=== PATIENT | female | born 1955 | race Caucasian/White ===

== ENCOUNTER 2019-03-22 22:09 | Emergency (ER) | payer MEDICARE, BC ==
[2019-03-22 22:25] VITALS: RESP 20; TEMP 98.4
[2019-03-22 23:06] LABS: Appearance,Urine Turbid (Clear); Bilirubin,Urine Negative (Negative); Blood,Urine Large (Negative); Color,Urine Dark Red; Glucose,Urine (UA) 4+ (Negative); Ketones,Urine Negative (Negative); Leukocyte Esterase,Urine Large (Negative); Nitrite,Urine Negative (Negative); PH, Urine 5.5 (5.0-8.0); Protein,Urine 2+ (Negative); RBC,Urine >182 /hpf (0-5); Urobilinogen,Urine <2.0 mg/dL (<2.0)
[2019-03-22 23:07] LABS: Specific Gravity,Urine 1.022 (1.001-1.035)
[2019-03-22] MEDS ORDERED: NITROFURANTOIN MONOHYD/M-CRYST 100 MG CAP PO STA (23:27)
[2019-03-22] MEDS ORDERED: cefTRIAXone 250 MG VIAL IM STA (23:29)
--- NOTE | 2019-03-22 23:30 | ED ---
Female Urogenital HPI - General Chief complaint: Urogenital Stated complaint: Hematuria Time Seen by Provider: 03/22/19 22:39 Source: patient, RN notes reviewed, old records reviewed Mode of arrival: wheelchair Limitations: no limitations - History of Present Illness Initial comments: This is a 63-year-old female the ER for evaluation she presents today for evaluation of blood in the urine. And difficulty with urination dysuria. Patient is without fever without abdominal pain no prior history of UTI. Patient has no other complaints MD Complaint: dysuria -: hour(s) Location: suprapubic Severity: mild Severity scale (1-10): 1 Consistency: constant Improves with: none Worsens with: urination Patient : No Associated Symptoms: denies other symptoms - Related Data Home Medications Medication Instructions Recorded Confirmed metFORMIN HCL [Glucophage] 500 mg PO AC-BID 05/30/16 03/22/19 Atorvastatin [Lipitor] 80 mg PO HS 03/22/19 03/22/19 Citalopram Hydrobromide [CeleXA] 20 mg PO HS 03/22/19 03/22/19 Losartan Potassium 100 mg PO DAILY 03/22/19 03/22/19 Pantoprazole [Protonix] 40 mg PO DAILY 03/22/19 03/22/19 Phenazopyridine HCl 95 mg PO DAILY PRN 03/22/19 03/22/19 Vitamin E 180mg 180 mg PO DAILY 03/22/19 03/22/19 Previous Rx's Medication Instructions Recorded Aspirin [Adult Low Dose Aspirin EC] 81 mg PO DAILY #30 tablet. 06/03/16 Clopidogrel [Plavix] 75 mg PO DAILY #30 tab 06/03/16 amLODIPine [Norvasc] 5 mg PO DAILY #30 tab 06/03/16 cloNIDine HCL [Catapres] 0.2 mg PO BID #60 tab 06/03/16 Nitrofurantoin Monohyd/M-Cryst 100 mg PO Q12HR #10 cap 03/22/19 [Macrobid] Nitrofurantoin Monohyd/M-Cryst 100 mg PO Q12HR #10 cap 03/22/19 [Macrobid] Allergies Allergy/AdvReac Type Severity Reaction Status Date / Time No Known Allergies Allergy Verified 03/22/19 23:15 Review of Systems ROS Statement: Those systems with pertinent positive or pertinent negative responses have been documented in the HPI. ROS Other: All systems not noted in ROS Statement are negative. Past Medical History Past Medical History: CVA/TIA, Diabetes Mellitus, Hypertension History of Any Multi-Drug Resistant Organisms: None Reported Past Surgical History: Tubal Ligation Additional Past Surgical History / Comment(s): CAROTID ENDART TO CLEAN OUT NECK ARTERY LEFT Past Anesthesia/Blood Transfusion Reactions: No Reported Reaction Past Psychological History: No Psychological Hx Reported Smoking Status: Former smoker Past Alcohol Use History: None Reported Past Drug Use History: None Reported - Past Family History Brother(s) Family Medical History: No Reported History Sister(s) Family Medical History: Diabetes Mellitus Additional Family Medical History / Comment(s): RENAL FAILURE, ABCESSES General Exam Limitations: no limitations General appearance: alert, in no apparent distress Head exam: Present: atraumatic, normocephalic, normal inspection Eye exam: Present: normal appearance, PERRL, EOMI. Absent: scleral icterus, conjunctival injection, periorbital swelling ENT exam: Present: normal exam, mucous membranes moist Neck exam: Present: normal inspection. Absent: tenderness, meningismus, lymphadenopathy Respiratory exam: Present: normal lung sounds bilaterally. Absent: respiratory distress, wheezes, rales, rhonchi, stridor Cardiovascular Exam: Present: regular rate, normal rhythm, normal heart sounds. Absent: systolic murmur, diastolic murmur, rubs, gallop, clicks GI/Abdominal exam: Present: soft, normal bowel sounds. Absent: distended, tenderness, guarding, rebound, rigid Extremities exam: Present: normal inspection, full ROM, normal capillary refill. Absent: tenderness, pedal edema, joint swelling, calf tenderness Back exam: Present: normal inspection Neurological exam: Present: alert, oriented X3, CN II-XII intact Psychiatric exam: Present: normal affect, normal mood Skin exam: Present: warm, dry, intact, normal color. Absent: rash Course Vital Signs 03/22/19 03/23/19 22:19 00:15 Temperature 98.4 F Pulse Rate 84 88 Respiratory 20 20 Rate Blood Pressure 214/85 210/90 O2 Sat by Pulse 94 L Oximetry Medical Decision Making - Medical Decision Making 83 female the ER with hematuria and dysuria, positive urinary tract infection place on antibiotics - Lab Data Lab Results 03/22/19 Range/Units 22:50 Urine Color Dark Red Urine Appearance Turbid H (Clear) Urine pH 5.5 (5.0-8.0) Ur Specific [place] 1.022 (1.001-1.035) Urine Protein 2+ H (Negative) Urine Glucose (UA) 4+ H (Negative) Urine Ketones Negative (Negative) Urine Blood Large H (Negative) Urine Nitrite Negative (Negative) Urine Bilirubin Negative (Negative) Urine Urobilinogen <2.0 (<2.0) mg/dL Ur Leukocyte Esterase Large H (Negative) Urine RBC >182 H (0-5) /hpf Urine WBC 94 H (0-5) /hpf Disposition Clinical Impression: Urinary tract infection Disposition: HOME SELF-CARE Condition: Good Instructions (If sedation given, give patient instructions): Urinary Tract Infection in Women (ED) Prescriptions: Nitrofurantoin Monohyd/M-Cryst [Macrobid] 100 mg PO Q12HR #10 cap Nitrofurantoin Monohyd/M-Cryst [Macrobid] 100 mg PO Q12HR #10 cap Is patient prescribed a controlled substance at d/c from ED?: No Referrals: Rhys Holley MD [Primary Care Provider] - 1-2 days
[2019-03-23 00:17] VITALS: BP 210/90; PULSE 88
== END 2019-03-23 00:17 | disposition home or self-care (01) ==
LOC: EC 22:09
DX: N39.0 Urinary tract infection, site not specified (principal); E11.9 Type 2 diabetes mellitus without complications; I10 Essential (primary) hypertension; Z87.891 Personal history of nicotine dependence; Z79.84 Long term (current) use of oral hypoglycemic drugs; Z79.899 Other long term (current) drug therapy; Z86.73 Personal history of transient ischemic attack (TIA), and cerebral infarction without residual deficits
CPT/HCPCS: 81001; 87086; 99284; 96372; J0696

== ENCOUNTER → 2019-05-14 | Outpatient (CLI) | payer MEDICARE, BC ==
--- NOTE | 2019-05-14 13:04 | US ---
EXAMINATION TYPE: US venous doppler duplex LE BI DATE OF EXAM: 05/14/2019 12:39 PM COMPARISON: NONE CLINICAL HISTORY: R60.0 EDEMA. Left foot and ankle edema with left foot pain and left lower leg pain x 3 years after last SIDE PERFORMED: Bilateral TECHNIQUE: The lower extremity deep venous system is examined utilizing real time linear array sonog jacinto with graded compression, doppler sonography and color-flow sonography. VESSELS IMAGED: Common Femoral Vein Deep Femoral Vein Greater Saphenous Vein * Femoral Vein: distal bilateral femoral veins not seen due to large body habitus and US machine limita tions for US penetration Popliteal Vein: left Popliteal Vein not visualized for above same reasons Patient stated is 5'3 and 231lbs or greater. Grayscale, color doppler, spectral doppler imaging performed of the deep veins of the lower extremiti es. Right Leg: Negative for DVT Left Leg: Negative for DVT as able to visualize vessels. Left ankle and anterior foot edema channels are well visualized. Tech findings were called to Carolynn, medical office worker, at Dr. Rhys Holley's Office at exam's end. JJ IMPRESSION: No sonographic evidence of deep venous thrombosis within the bilateral lower extremities as visualize d. However there is nonvisualization of the bilateral femoral veins and left popliteal vein due to pa tient body habitus.
== END | disposition home or self-care (01) ==
LOC: RADUSWWP 11:31
PROVIDERS: ATTEND Family Medicine
DX: R60.0 Localized edema (principal)
CPT/HCPCS: 93970

== ENCOUNTER 2019-07-06 11:13 | Inpatient (IN) | payer MEDICARE, BC ==
[2019-07-06] MEDS ORDERED: IBUPROFEN 600 MG TAB PO STA (11:39)
--- NOTE | 2019-07-06 11:43 | ED ---
General Adult HPI - General Chief complaint: Fever Stated complaint: FEVER, BACK AND LEG PAIN, NAUSEA Time Seen by Provider: 07/06/19 11:33 Source: patient, family, RN notes reviewed Mode of arrival: wheelchair Limitations: no limitations - History of Present Illness Initial comments: Patient is a pleasant 63-year-old female presenting to the emergency department with fevers. Symptoms started 2 or 3 days ago. Patient complains of achiness in her legs and back and head, mostly diffuse. Patient states this has resolved with Tylenol. Patient does have history of urinary tract infections with similar symptoms. Patient has had minimal cough that is nonproductive. No abdominal pain. - Related Data Home Medications Medication Instructions Recorded Confirmed metFORMIN HCL [Glucophage] 500 mg PO AC-BID 05/30/16 07/06/19 Atorvastatin [Lipitor] 80 mg PO HS 03/22/19 07/06/19 Losartan Potassium 100 mg PO DAILY 03/22/19 07/06/19 Pantoprazole [Protonix] 40 mg PO HS 03/22/19 07/06/19 Vitamin E 180mg 180 mg PO DAILY 03/22/19 07/06/19 Acetaminophen [Tylenol] 1,000 mg PO Q4-6H PRN 07/06/19 07/06/19 Citalopram Hydrobromide [CeleXA] 40 mg PO HS 07/06/19 07/06/19 Previous Rx's Medication Instructions Recorded Aspirin [Adult Low Dose Aspirin EC] 81 mg PO DAILY #30 tablet. 06/03/16 Clopidogrel [Plavix] 75 mg PO DAILY #30 tab 06/03/16 amLODIPine [Norvasc] 5 mg PO DAILY #30 tab 06/03/16 cloNIDine HCL [Catapres] 0.2 mg PO BID #60 tab 06/03/16 Allergies Allergy/AdvReac Type Severity Reaction Status Date / Time No Known Allergies Allergy Verified 07/06/19 12:03 Review of Systems ROS Statement: Those systems with pertinent positive or pertinent negative responses have been documented in the HPI. ROS Other: All systems not noted in ROS Statement are negative. Constitutional: Reports: fever, chills Eyes: Denies: eye pain ENT: Denies: ear pain Respiratory: Reports: cough. Denies: dyspnea Cardiovascular: Denies: chest pain Endocrine: Denies: fatigue Gastrointestinal: Denies: abdominal pain Genitourinary: Denies: dysuria Musculoskeletal: Reports: as per HPI, back pain (Resolved) Skin: Denies: rash Neurological: Reports: headache (Resolved), weakness (Chronic left-sided we akness from previous stroke) Past Medical History Past Medical History: CVA/TIA, Diabetes Mellitus, Hypertension Additional Past Medical History / Comment(s): cva x3 History of Any Multi-Drug Resistant Organisms: ESBL, MRSA Date of last positivie culture/infection: 06/07/19 MRSA & ESBL-E.coli MDRO Source:: Urine-RSA & ESBL Past Surgical History: Tubal Ligation Additional Past Surgical History / Comment(s): CAROTID ENDART TO CLEAN OUT NECK ARTERY LEFT Past Anesthesia/Blood Transfusion Reactions: No Reported Reaction Past Psychological History: No Psychological Hx Reported Smoking Status: Former smoker Past Alcohol Use History: None Reported Past Drug Use History: None Reported - Past Family History Brother(s) Family Medical History: No Reported History Sister(s) Family Medical History: Diabetes Mellitus Additional Family Medical History / Comment(s): RENAL FAILURE, ABCESSES General Exam Limitations: no limitations General appearance: alert, in no apparent distress Head exam: Present: normocephalic Eye exam: Present: normal appearance, PERRL ENT exam: Present: normal oropharynx Neck exam: Present: normal inspection. Absent: tenderness, meningismus Respiratory exam: Present: normal lung sounds bilaterally Cardiovascular Exam: Present: regular rate, normal rhythm GI/Abdominal exam: Present: soft. Absent: tenderness Extremities exam: Present: pedal edema Neurological exam: Present: alert, motor sensory deficit (Left arm and left leg weakness that is stated as chronic and unchanged.) Psychiatric exam: Present: normal affect, normal mood Skin exam: Present: normal color Course Vital Signs 07/06/19 07/06/19 07/06/19 11:24 12:26 12:27 Temperature 100.5 F H Pulse Rate 93 90 Respiratory 18 18 Rate Blood Pressure 139/71 172/85 O2 Sat by Pulse 91 L 88 L 95 Oximetry 07/06/19 13:35 Temperature 99.5 F Pulse Rate 80 Respiratory 18 Rate Blood Pressure 160/71 O2 Sat by Pulse 98 Oximetry - Reevaluation(s) Reevaluation #1: 07/06/19 14:11 Patient does meet sepsis criteria diagnosed at 1400. Blood culture and lactic acid and IV antibiotics ordered. EKG Findings - EKG Comments: EKG Findings:: Normal sinus rhythm 94. MT 142. QRS 84. QT 358. QTC 447. Normal axis. Normal QRS. No acute ST change. Medical Decision Making - Medical Decision Making Patient reevaluated and resting comfortably in bed. Patient and family updated on results and plan. Case was discussed in detail with Dr. marie, covering Dr. Holley, who will admit. - Lab Data Result diagrams: 07/06/19 12:09 07/06/19 12:09 Lab Results 07/06/19 07/06/19 07/06/19 Range/Units 12:09 12:09 12:09 WBC 7.6 (3.8-10.6) k/uL RBC 3.92 (3.80-5.40) m/uL Hgb 10.9 L (11.4-16.0) gm/dL Hct 32.4 L (34.0-46.0) % MCV 82.8 (80.0-100.0) fL MCH 27.9 (25.0-35.0) pg MCHC 33.7 (31.0-37.0) g/dL RDW 15.6 H (11.5-15.5) % Plt Count 172 (150-450) k/uL Neutrophils % 86 % Lymphocytes % 7 % Monocytes % 6 % Eosinophils % 0 % Basophils % 0 % Neutrophils # 6.5 (1.3-7.7) k/uL Lymphocytes # 0.5 L (1.0-4.8) k/uL Monocytes # 0.4 (0-1.0) k/uL Eosinophils # 0.0 (0-0.7) k/uL Basophils # 0.0 (0-0.2) k/uL PT (9.0-12.0) sec INR (<1.2) APTT (22.0-30.0) sec Sodium 136 L (137-145) mmol/L Potassium 4.4 (3.5-5.1) mmol/L Chloride 103 (98-107) mmol/L Carbon Dioxide 24 (22-30) mmol/L Anion Gap 9 mmol/L BUN 14 (7-17) mg/dL Creatinine 0.75 (0.52-1.04) mg/dL Est GFR (CKD-EPI)AfAm >90 (>60 ml/min/1.73 sqM) Est GFR (CKD-EPI)NonAf 84 (>60 ml/min/1.73 sqM) Glucose 245 H (74-99) mg/dL Plasma Lactic Acid [place] 1.2 (0.7-2.0) mmol/L Calcium 9.6 (8.4-10.2) mg/dL Total Bilirubin 0.9 (0.2-1.3) mg/dL AST 17 (14-36) U/L ALT 23 (9-52) U/L Alkaline Phosphatase 96 (38-126) U/L Total Protein 6.4 (6.3-8.2) g/dL Albumin 3.4 L (3.5-5.0) g/dL Urine Color Urine Appearance (Clear) Urine pH (5.0-8.0) Ur Specific [place] (1.001-1.035) Urine Protein (Negative) Urine Glucose (UA) (Negative) Urine Ketones (Negative) Urine Blood (Negative) Urine Nitrite (Negative) Urine Bilirubin (Negative) Urine Urobilinogen (<2.0) mg/dL Ur Leukocyte Esterase (Negative) Urine RBC (0-5) /hpf Urine WBC (0-5) /hpf Urine WBC Clumps (None) /hpf Urine Bacteria (None) /hpf Urine Mucus (None) /hpf 07/06/19 07/06/19 Range/Units 12:09 12:09 WBC (3.8-10.6) k/uL RBC (3.80-5.40) m/uL Hgb (11.4-16.0) gm/dL Hct (34.0-46.0) % MCV (80.0-100.0) fL MCH (25.0-35.0) pg MCHC (31.0-37.0) g/dL RDW (11.5-15.5) % Plt Count (150-450) k/uL Neutrophils % % Lymphocytes % % Monocytes % % Eosinophils % % Basophils % % Neutrophils # (1.3-7.7) k/uL Lymphocytes # (1.0-4.8) k/uL Monocytes # (0-1.0) k/uL Eosinophils # (0-0.7) k/uL Basophils # (0-0.2) k/uL PT 11.2 (9.0-12.0) sec INR 1.1 (<1.2) APTT 27.8 (22.0-30.0) sec Sodium (137-145) mmol/L Potassium (3.5-5.1) mmol/L Chloride (98-107) mmol/L Carbon Dioxide (22-30) mmol/L Anion Gap mmol/L BUN (7-17) mg/dL Creatinine (0.52-1.04) mg/dL Est GFR (CKD-EPI)AfAm (>60 ml/min/1.73 sqM) Est GFR (CKD-EPI)NonAf (>60 ml/min/1.73 sqM) Glucose (74-99) mg/dL Plasma Lactic Acid [place] (0.7-2.0) mmol/L Calcium (8.4-10.2) mg/dL Total Bilirubin (0.2-1.3) mg/dL AST (14-36) U/L ALT (9-52) U/L Alkaline Phosphatase (38-126) U/L Total Protein (6.3-8.2) g/dL Albumin (3.5-5.0) g/dL Urine Color Yellow Urine Appearance Cloudy H (Clear) Urine pH 5.5 (5.0-8.0) Ur Specific [place] 1.015 (1.001-1.035) Urine Protein 2+ H (Negative) Urine Glucose (UA) 1+ H (Negative) Urine Ketones Negative (Negative) Urine Blood Moderate H (Negative) Urine Nitrite Negative (Negative) Urine Bilirubin Negative (Negative) Urine Urobilinogen <2.0 (<2.0) mg/dL Ur Leukocyte Esterase Large H (Negative) Urine RBC 19 H (0-5) /hpf Urine WBC >182 H (0-5) /hpf Urine WBC Clumps Many H (None) /hpf Urine Bacteria Occasional H (None) /hpf Urine Mucus Rare H (None) /hpf - Radiology Data Radiology results: image reviewed (Chest x-ray shows cardiomegaly. There is some interstitial changes) Critical Care Time Critical Care Time: Yes Total Critical Care Time: 33 Disposition Clinical Impression: Urinary tract infection, Sepsis Disposition: ADMITTED IP TO THIS [facility] Condition: Serious Is patient prescribed a controlled substance at d/c from ED?: No Referrals: Rhys Holley MD [Primary Care Provider] - 1-2 days Decision Time: 14:12
[2019-07-06] MEDS ORDERED: SODIUM CHLORIDE 0.9% 500 ML 500 ML IV SCH (11:45)
--- NOTE | 2019-07-06 12:45 | XR ---
EXAMINATION TYPE: XR chest 2V DATE OF EXAM: 07/06/2019 HISTORY: Fever. REFERENCE: Previous study dated 05/30/2016. FINDINGS: The study is quite lordotic. The heart is enlarged. There is vascular congestion. There is thickening of posterior wall of the bronchus intermedius. Pleural spaces are clear. IMPRESSION: FINDINGS SUGGESTING MILD CONGESTIVE HEART FAILURE. PLEASE CORRELATE CLINICALLY.
[2019-07-06 12:53] LABS: Basophils % (A) 0 %; Eosinophils % (A) 0 %; HCT 32.4 % (34.0-46.0); HGB 10.9 gm/dL (11.4-16.0); Lymphocytes # (A) 0.5 k/uL (1.0-4.8); Lymphocytes % (A) 7 %; MCH 27.9 pg (25.0-35.0); MCHC 33.7 g/dL (31.0-37.0); MCV 82.8 fL (80.0-100.0); Monocytes # (A) 0.4 k/uL (0-1.0); Monocytes % (A) 6 %; Neutrophils # (A) 6.5 k/uL (1.3-7.7); Neutrophils % (A) 86 %; Platelet Count 172 k/uL (150-450); RBC 3.92 m/uL (3.80-5.40); RDW 15.6 % (11.5-15.5); WBC 7.6 k/uL (3.8-10.6)
[2019-07-06 13:06] LABS: ALT 23 U/L (9-52); AST 17 U/L (14-36); African American GFR (CKD) >90 (>60 ml/min/1.73 sqM); Albumin 3.4 g/dL (3.5-5.0); Alkaline Phosphatase 96 U/L (38-126); Anion Gap 9 mmol/L; Blood Urea Nitrogen 14 mg/dL (7-17); Calcium 9.6 mg/dL (8.4-10.2); Carbon Dioxide 24 mmol/L (22-30); Chloride 103 mmol/L (98-107); Glucose 245 mg/dL (74-99); Potassium 4.4 mmol/L (3.5-5.1); Sodium 136 mmol/L (137-145); Total Bilirubin 0.9 mg/dL (0.2-1.3); Total Protein 6.4 g/dL (6.3-8.2)
[2019-07-06 13:12] LABS: INR 1.1 (<1.2); Partial Thromboplastin Time 27.8 sec (22.0-30.0); Prothrombin Time 11.2 sec (9.0-12.0)
[2019-07-06 13:15] LABS: Appearance,Urine Cloudy (Clear); Bacteria,Urine Occasional /hpf; Bilirubin,Urine Negative (Negative); Blood,Urine Moderate (Negative); Color,Urine Yellow; Glucose,Urine (UA) 1+ (Negative); Ketones,Urine Negative (Negative); Leukocyte Esterase,Urine Large (Negative); Mucus,Urine Rare /hpf; Nitrite,Urine Negative (Negative); PH, Urine 5.5 (5.0-8.0); Protein,Urine 2+ (Negative); RBC,Urine 19 /hpf (0-5); Specific Gravity,Urine 1.015 (1.001-1.035); Urobilinogen,Urine <2.0 mg/dL (<2.0); WBC,Urine >182 /hpf (0-5)
[2019-07-06] MEDS ORDERED: VANCOMYCIN IV PER PHARMACY 1 EACH MISC MISCELLANE PRN (14:09)
[2019-07-06] MEDS ORDERED: NALOXONE 0.4 MG/ML 1 ML VIAL IV PRN (14:13)
[2019-07-06] MEDS ORDERED: VANCOMYCIN 2,000 MG in SODIUM CHLORIDE 0.9% 500 ML 500 ML IVPB STA (14:20)
--- NOTE | 2019-07-06 14:31 | P.HPIM ---
History of Present Illness This is a pleasant 63 years old female with past medical history of diabetes mellitus, hypertension, CVA/TIA. Patient is bedridden at baseline. She presents to the hospital because of fever, however she denies coughing, no abdom inal pain, no change in bowel habits. No urinary complaints or change in frequency for example no dysuria On admission her fever was 100.5, rest of Vitas looks stable. Labs showing normal WBC of 7.6K, platelets 172, creatinine 0.7. Urinalysis is suspicious for infection. Chest x-ray showing no infiltrate however there is suspicion of congestive heart failure. EKG showing normal sinus rhythm at [address]-T changes In the emergency room patient was started on antibiotics and fluids Review of Systems CONSTITUTIONAL: No fever, no malaise, no fatigue. HEENT: No recent visual problems or hearing problems. Denied any sore throat. CARDIOVASCULAR: No orthopnea, PND, no palpitations, no syncope. PULMONARY: No shortness of breath, no cough, no hemoptysis. GASTROINTESTINAL: No diarrhea, no nausea, no vomiting, no abdominal pain. Normoactive bowel sounds. NEUROLOGICAL: No headaches, no weakness, no numbness. HEMATOLOGICAL: Denies any bleeding or petechiae. GENITOURINARY: Denies any burning micturition, frequency, or urgency. MUSCULOSKELETAL/RHEUMATOLOGICAL: Denies any joint pain, swelling, or any muscle pain. ENDOCRINE: Denies any polyuria or polydipsia. Past Medical History Past Medical History: CVA/TIA, Diabetes Mellitus, Hypertension Additional Past Medical History / Comment(s): cva x3 History of Any Multi-Drug Resistant Organisms: ESBL, MRSA Date of last positivie culture/infection: 06/07/19 MRSA & ESBL-E.coli MDRO Source:: Urine-RSA & ESBL Past Surgical History: Tubal Ligation Additional Past Surgical History / Comment(s): CAROTID ENDART TO CLEAN OUT NECK ARTERY LEFT Past Anesthesia/Blood Transfusion Reactions: No Reported Reaction Past Psychological History: No Psychological Hx Reported Smoking Status: Former smoker Past Alcohol Use History: None Reported Past Drug Use History: None Reported - Past Family History Brother(s) Family Medical History: No Reported History Sister(s) Family Medical History: Diabetes Mellitus Additional Family Medical History / Comment(s): RENAL FAILURE, ABCESSES Medications and Allergies Home Medications Medication Instructions Recorded Confirmed Type metFORMIN HCL [Glucophage] 500 mg PO AC-BID 05/30/16 07/06/19 History Aspirin [Adult Low Dose Aspirin EC] 81 mg PO DAILY #30 tablet. 06/03/16 Rx Clopidogrel [Plavix] 75 mg PO DAILY #30 tab 06/03/16 07/06/19 Rx amLODIPine [Norvasc] 5 mg PO DAILY #30 tab 06/03/16 07/06/19 Rx cloNIDine HCL [Catapres] 0.2 mg PO BID #60 tab 06/03/16 07/06/19 Rx Atorvastatin [Lipitor] 80 mg PO HS 03/22/19 07/06/19 History Losartan Potassium 100 mg PO DAILY 03/22/19 07/06/19 History Pantoprazole [Protonix] 40 mg PO HS 03/22/19 07/06/19 History Vitamin E 180mg 180 mg PO DAILY 03/22/19 07/06/19 History Acetaminophen [Tylenol] 1,000 mg PO Q4-6H PRN 07/06/19 07/06/19 History Citalopram Hydrobromide [CeleXA] 40 mg PO HS 07/06/19 07/06/19 History Allergies Allergy/AdvReac Type Severity Reaction Status Date / Time No Known Allergies Allergy Verified 07/06/19 12:03 Physical Exam Vitals: Vital Signs Temp Pulse Resp BP Pulse Ox 07/06/19 13:35 99.5 F 80 18 160/71 98 07/06/19 12:27 95 07/06/19 12:26 90 18 172/85 88 L 07/06/19 11:24 100.5 F H 93 18 139/71 91 L Intake and Output 07/05/19 07/06/19 07/06/19 22:59 06:59 14:59 Other: Weight 104.78 kg -GENERAL: The patient is alert and oriented x3, not in any acute distress. Obese HEENT: Pupils are round and equally reacting to light. EOMI. No scleral icterus. No conjunctival pallor. Normocephalic, atraumatic. No pharyngeal erythema. No thyromegaly. CARDIOVASCULAR: S1 and S2 present. No murmurs, rubs, or gallops. PULMONARY: Chest is clear to auscultation, no wheezing or crackles. ABDOMEN: Soft, nontender, nondistended, normoactive bowel sounds. No palpable organomegaly. MUSCULOSKELETAL: No joint swelling or deformity. EXTREMITIES: No cyanosis, clubbing, or pedal edema. -NEUROLOGICAL: Gross neurological examination did not reveal any focal deficits. Bedbound SKIN: No rashes. No petechiae Results CBC & Chem 7: 07/06/19 12:09 07/06/19 12:09 Labs: Abnormal Lab Results - Last 24 Hours (Table) 07/06/19 07/06/19 07/06/19 Range/Units 12:09 12:09 12:09 Hgb 10.9 L (11.4-16.0) gm/dL Hct 32.4 L (34.0-46.0) % RDW 15.6 H (11.5-15.5) % Lymphocytes # 0.5 L (1.0-4.8) k/uL Sodium 136 L (137-145) mmol/L Glucose 245 H (74-99) mg/dL Albumin 3.4 L (3.5-5.0) g/dL Urine Appearance Cloudy H (Clear) Urine Protein 2+ H (Negative) Urine Glucose (UA) 1+ H (Negative) Urine Blood Moderate H (Negative) Ur Leukocyte Esterase Large H (Negative) Urine RBC 19 H (0-5) /hpf Urine WBC >182 H (0-5) /hpf Urine WBC Clumps Many H (None) /hpf Urine Bacteria Occasional H (None) /hpf Urine Mucus Rare H (None) /hpf Assessment and Plan Assessment: Acute urinary tract infection Hypertension Diabetes mellitus History of CVA/TIA Obesity Bedbound at baseline Plan: This is a pleasant 63 years old female who presents because of UTI. Continue with ceftriaxone. Follow-up urine culture. Check proBNP and echocardiogram Labs and medication were reviewed.. Continue same treatment. Continue with symptomatic treatment. Resume home medication. Monitor lytes and vitals. DVT and GI prophylaxis. Further recommendations of the clinical course of the patient DVT prophylaxis: Subcutaneous heparin GI Prophylaxis: Pepcid Prognosis is guarded
[2019-07-06] MEDS: SODIUM CHLORIDE 0.9% 1,000 ML IV SCH (14:44)
[2019-07-06 15:40] VITALS: BMI 42.2
[2019-07-06 16:52] LABS: Glucose,Whole Blood 225 mg/dL (75-99)
[2019-07-06] MEDS: metFORMIN 500 MG TAB PO SCH (17:20)
[2019-07-06] MEDS: INSULIN ASPART (NovoLOG) 100 UNIT/ML VIAL SQ SCH ×2 (17:20→21:50)
--- NOTE | 2019-07-06 18:56 | US ---
EXAMINATION TYPE: US renals and bladder DATE OF EXAM: 07/06/2019 COMPARISON: NONE CLINICAL HISTORY: UTI . UTI, fever, exam done portable. EXAM MEASUREMENTS: Right Kidney: 11.9 x 5.9 x 5.0 cm Left Kidney: 13.2 x 5.8 x 5.9 cm Difficult and limited study due to patient body habitus Right Kidney: no hydronephrosis or masses seen Left Kidney: enlarged, hydronephrosis Bladder: not fully distended, wnl as seen Bilateral Jets seen: no IMPRESSION: 1. Left hydronephrosis.
[2019-07-06] MEDS: ACETAMINOPHEN TAB 500 MG TAB PO PRN ×2 (19:16→23:58)
[2019-07-06] MEDS: cloNIDine HCL 0.2 MG TAB PO SCH (19:42)
[2019-07-06] MEDS: ATORVASTATIN 80 MG TAB PO SCH (19:42)
[2019-07-06] MEDS: CITALOPRAM HYDROBROMIDE 20 MG TAB PO SCH (19:43)
[2019-07-06] MEDS: PANTOPRAZOLE 40 MG TABLET PO SCH (19:43)
[2019-07-06 20:56] LABS: Glucose,Whole Blood 186 mg/dL (75-99)
[2019-07-06] MEDS ORDERED: IBUPROFEN 600 MG TAB PO PRN (21:37)
[2019-07-06 21:58] LABS: Glucose,Whole Blood 219 mg/dL (75-99)
[2019-07-07] MEDS: ACETAMINOPHEN TAB 500 MG TAB PO PRN ×3 (05:49→17:45)
[2019-07-07 07:08] LABS: Glucose,Whole Blood 156 mg/dL (75-99)
[2019-07-07 07:18] LABS: Calcium 9.3 mg/dL (8.4-10.2); Potassium 4.4 mmol/L (3.5-5.1); Total Bilirubin 0.6 mg/dL (0.2-1.3); Total Protein 5.9 g/dL (6.3-8.2)
[2019-07-07] MEDS: amLODIPine 5 MG TAB PO SCH (07:54)
[2019-07-07] MEDS: LOSARTAN 50 MG TAB PO SCH (07:54)
[2019-07-07] MEDS: metFORMIN 500 MG TAB PO SCH ×2 (07:54→17:46)
[2019-07-07] MEDS: ASPIRIN 81 MG PO SCH (07:54)
[2019-07-07] MEDS: cloNIDine HCL 0.2 MG TAB PO SCH ×2 (07:54→20:50)
[2019-07-07] MEDS: CLOPIDOGREL 75 MG TAB PO SCH (07:54)
[2019-07-07] MEDS: INSULIN ASPART (NovoLOG) 100 UNIT/ML VIAL SQ SCH ×4 (07:55→20:49)
[2019-07-07 08:00] LABS: Basophils # (A) 0.1 k/uL (0-0.2); Basophils % (A) 2 %; Eosinophils # (A) 0.1 k/uL (0-0.7); Eosinophils % (A) 1 %; HCT 32.3 % (34.0-46.0); HGB 10.7 gm/dL (11.4-16.0); Lymphocytes # (A) 1.6 k/uL (1.0-4.8); Lymphocytes % (A) 18 %; MCH 27.5 pg (25.0-35.0); MCHC 33.2 g/dL (31.0-37.0); Mean Platelet Volume 8.4; Monocytes # (A) 0.6 k/uL (0-1.0); Monocytes % (A) 7 %; Neutrophils # (A) 6.3 k/uL (1.3-7.7); Neutrophils % (A) 70 %; Platelet Count 197 k/uL (150-450); RBC 3.89 m/uL (3.80-5.40); RDW 15.8 % (11.5-15.5)
[2019-07-07] MEDS: VANCOMYCIN 2,000 MG in SODIUM CHLORIDE 0.9% 500 ML 500 ML IVPB SCH (09:26)
[2019-07-07 11:25] LABS: Glucose,Whole Blood 150 mg/dL (75-99)
--- NOTE | 2019-07-07 14:14 | P.PN ---
Subjective This is a pleasant 63 years old female with past medical history of diabetes mellitus, hypertension, CVA/TIA. Patient is bedridden at baseline. She presents to the hospital because of fever, however she denies coughing, no abdominal pain, no change in bowel habits. No urinary complaints or change in frequency for example no dysuria On admission her fever was 100.5, rest of Vitas looks stable. Labs showing normal WBC of 7.6K, platelets 172, creatinine 0.7. Urinalysis is suspicious for infection. Chest x-ray showing no infiltrate however there is suspicion of congestive heart failure. EKG showing normal sinus rhythm at [address] ST-T changes In the emergency room patient was started on antibiotics and fluids 07/07/2019 Patient is resting in bed comfortably with no distress. No chest pain or dyspnea. No abdominal pain. No signs symptoms of UTI like no dysuria or change in frequency. Patient was started on vancomycin and review of her MRSA in her urine culture previously. Current urine culture is still pending. Also patient on ceftriaxone and normal saline at 50, renal ultrasound showing left hydronephrosis and urology team have been consulted. Also consult infectious disease in view of her previous urine culture for ESBL and MRSA, patient had fever yesterday of 101.5, patient is afebrile today. WBC is 9K, creatinine 0.8. Sugar is controlled. Christopher Slifer unremarkable. Review of systems CONSTITUTIONAL: No fever, no malaise, no fatigue. HEENT: No recent visual problems or hearing problems. Denied any sore throat. CARDIOVASCULAR: No orthopnea, PND, no palpitations, no syncope. PULMONARY: No shortness of breath, no cough, no hemoptysis. GASTROINTESTINAL: No diarrhea, no nausea, no vomiting, no abdominal pain. Normoactive bowel sounds. NEUROLOGICAL: No headaches, no weakness, no numbness. HEMATOLOGICAL: Denies any bleeding or petechiae. GENITOURINARY: Denies any burning micturition, frequency, or urgency. MUSCULOSKELETAL/RHEUMATOLOGICAL: Denies any joint pain, swelling, or any muscle pain. ENDOCRINE: Denies any polyuria or polydipsia. Active Medications Generic Name Dose Route Start Last Admin Trade Name Freq PRN Reason Stop Dose Admin Acetaminophen 1,000 mg 07/06/19 16:17 07/07/19 12:50 Tylenol Tab PO 1,000 mg Q4H PRN Administration Pain Amlodipine Besylate 5 mg 07/07/19 09:00 07/07/19 07:54 Norvasc PO 5 mg DAILY BRODY Administration Aspirin 81 mg 07/07/19 09:00 07/07/19 07:54 Aspirin PO 81 mg DAILY BRODY Administration Atorvastatin Calcium 80 mg 07/06/19 21:00 07/06/19 19:42 Lipitor PO 80 mg HS BRODY Administration Citalopram Hydrobromide 40 mg 07/06/19 21:00 07/06/19 19:43 Celexa PO 40 mg HS BRODY Administration Clonidine 0.2 mg 07/06/19 21:00 07/07/19 07:54 Catapres PO 0.2 mg BID BRODY Administration Clopidogrel Bisulfate 75 mg 07/07/19 09:00 07/07/19 07:54 Plavix PO 75 mg DAILY BRODY Administration Ceftriaxone Sodium 1 gm/ 50 mls @ 100 mls/hr 07/06/19 23:00 07/07/19 07:55 Sodium Chloride IVPB 100 mls/hr Q12HR BRODY Administration Sodium Chloride 1,000 mls @ 50 mls/hr 07/06/19 14:15 07/06/19 14:44 Saline 0.9% IV 20 mls/hr .Q20H BRODY Administration Vancomycin HCl 2,000 mg/ 500 mls @ 167 mls/hr 07/07/19 08:00 07/07/19 09:26 Sodium Chloride IVPB 167 mls/hr Q16H BRODY Administration Insulin Aspart 0 unit 07/06/19 17:30 07/07/19 12:50 Novolog SQ 1 unit ACHS BRODY Administration Protocol Losartan Potassium 100 mg 07/07/19 09:00 07/07/19 07:54 Cozaar PO 100 mg DAILY BRODY Administration Metformin HCl 500 mg 07/06/19 17:30 07/07/19 07:54 Glucophage PO 500 mg AC-BID BRODY Administration Naloxone HCl 0.2 mg 07/06/19 14:13 Narcan IV Q2M PRN Opioid Reversal Pantoprazole Sodium 40 mg 07/06/19 21:00 07/06/19 19:43 Protonix PO 40 mg HS BRODY Administration Objective - Vital Signs Vital signs: Vital Signs Temp 98.1 F 07/07/19 07:00 Pulse 71 07/07/19 07:00 Resp 16 07/07/19 07:00 BP 150/74 07/07/19 07:00 Pulse Ox 94 L 07/07/19 07:00 Intake & Output 07/06/19 07/07/19 07/07/19 18:59 06:59 18:59 Weight 104.78 kg Other: # Voids 1 - Exam -GENERAL: The patient is alert and oriented x3, not in any acute distress. Obese HEENT: Pupils are round and equally reacting to light. EOMI. No scleral icterus. No conjunctival pallor. Normocephalic, atraumatic. No pharyngeal erythema. No thyromegaly. CARDIOVASCULAR: S1 and S2 present. No murmurs, rubs, or gallops. PULMONARY: Chest is clear to auscultation, no wheezing or crackles. ABDOMEN: Soft, nontender, nondistended, normoactive bowel sounds. No palpable organomegaly. MUSCULOSKELETAL: No joint swelling or deformity. EXTREMITIES: No cyanosis, clubbing, or pedal edema. -NEUROLOGICAL: Gross neurological examination did not reveal any focal deficits. Bedbound SKIN: No rashes. No petechiae - Labs CBC & Chem 7: 07/07/19 06:21 07/07/19 06:21 Labs: Abnormal Lab Results - Last 24 Hours (Table) 07/06/19 07/06/19 07/06/19 Range/Units 16:50 20:45 21:48 Hgb (11.4-16.0) gm/dL Hct (34.0-46.0) % RDW (11.5-15.5) % Glucose (74-99) mg/dL POC Glucose (mg/dL) 225 H 186 H 219 H (75-99) mg/dL Total Protein (6.3-8.2) g/dL Albumin (3.5-5.0) g/dL 07/07/19 07/07/19 07/07/19 Range/Units 06:21 06:21 06:49 Hgb 10.7 L (11.4-16.0) gm/dL Hct 32.3 L (34.0-46.0) % RDW 15.8 H (11.5-15.5) % Glucose 160 H (74-99) mg/dL POC Glucose (mg/dL) 156 H (75-99) mg/dL Total Protein 5.9 L (6.3-8.2) g/dL Albumin 3.0 L (3.5-5.0) g/dL 07/07/19 Range/Units 11:22 Hgb (11.4-16.0) gm/dL Hct (34.0-46.0) % RDW (11.5-15.5) % Glucose (74-99) mg/dL POC Glucose (mg/dL) 150 H (75-99) mg/dL Total Protein (6.3-8.2) g/dL Albumin (3.5-5.0) g/dL Microbiology - Last 24 Hours (Table) 07/06/19 12:09 Urine Culture - Preliminary Urine,Catheterized Assessment and Plan Assessment: Acute urinary tract infection Left hydronephrosis Hypertension Diabetes mellitus History of CVA/TIA Obesity Bedbound at baseline Plan: This is a pleasant 63 years old female who presents because of UTI. Continue with ceftriaxone. Follow-up urine culture. Check proBNP and echocardiogram. Consult infectious disease and urology in view of her hydronephrosis Labs and medication were reviewed.. Continue same treatment. Continue with symptomatic treatment. Resume home medication. Monitor lytes and vitals. DVT and GI prophylaxis. Further recommendations of the clinical course of the patient DVT prophylaxis: Subcutaneous heparin GI Prophylaxis: Pepcid Prognosis is guarded
[2019-07-07] MEDS: SODIUM CHLORIDE 0.9% 1,000 ML IV SCH (15:55)
[2019-07-07 17:25] LABS: Glucose,Whole Blood 153 mg/dL (75-99)
[2019-07-07 20:11] LABS: Glucose,Whole Blood 168 mg/dL (75-99)
[2019-07-07] MEDS ORDERED: hydrALAZINE HCL 10 MG TAB PO PRN (20:30)
[2019-07-07] MEDS: CITALOPRAM HYDROBROMIDE 20 MG TAB PO SCH (20:50)
[2019-07-07] MEDS: PANTOPRAZOLE 40 MG TABLET PO SCH (20:51)
[2019-07-07] MEDS: ATORVASTATIN 80 MG TAB PO SCH (20:51)
--- NOTE | 2019-07-07 23:03 | P.CONS ---
History of Present Illness - Reason for Consult Consult date: 07/07/19 UTI Requesting physician: Jose E Sheet - Chief Complaint Fever and mental status chanegs x 3 days - History of Present Illness Patient is a 63-year-old female presenting to the ER at [facility] yesterday morning with a chief complaints of fever her symptom has been going on for about 2 to 3 days before the patient was brought into the hospital patient was noted to be slightly confused and lethargic patient denies any headache no urinary symptoms denies having any chest pain no shortness of breath with minimal cough no nausea no vomiting no abdominal pain denies any diarrhea or any burning or frequency of urine with the symptoms and the patient was evaluated by the ER physician on arrival to the ER the patient did have a low-grade fever 100.5 subsequently spiked a fever of 101.5 F patient did have a tachycardia with heart rate of 99 patient white count was normal though she did have a positive UA with large leukocyte esterase more than 182 WBC patient blood cultures currently pending initially started on doxepin subsequently urination staph aureus vancomycin was added and infectious disease was consulted for further recommendation about antibiotic therapy patient did have a renal ultrasound completed which shows left-sided hydronephrosis for which urology has been consulted Review of Systems CONSTITUTIONAL: Positive for weakness. Fever EYES: No complaint. ENT:No complaint. RESPIRATORY: No complaint. CARDIOVASCULAR: No complaint. GENITOURINARY: as per history of present illness. GASTROINTESTINAL: No complaint. MUSCULOSKELETAL: No complaint. INTEGUMENTARY: No complaint. PSYCHOLOGICAL: No complaint. ENDOCRINE: No complaint. NEUROLOGIC as per history of present illness.. Past Medical History Past Medical History: CVA/TIA, Diabetes Mellitus, Hypertension Additional Past Medical History / Comment(s): cva x3 History of Any Multi-Drug Resistant Organisms: ESBL, MRSA Year Discovered:: 06/07/19 MRSA & ESBL-E.coli MDRO Source:: Urine-RSA & ESBL Past Surgical History: Tubal Ligation Additional Past Surgical History / Comment(s): CAROTID ENDART TO CLEAN OUT NECK ARTERY LEFT; shelter monitor chip placed Past Anesthesia/Blood Transfusion Reactions: No Reported Reaction Past Psychological History: Depression Smoking Status: Former smoker Past Alcohol Use History: None Reported Past Drug Use History: None Reported - Past Family History Brother(s) Family Medical History: No Reported History Sister(s) Family Medical History: Diabetes Mellitus Additional Family Medical History / Comment(s): RENAL FAILURE, ABCESSES Medications and Allergies Home Medications Medication Instructions Recorded Confirmed Type metFORMIN HCL [Glucophage] 500 mg PO AC-BID 05/30/16 07/06/19 History Aspirin [Adult Low Dose Aspirin EC] 81 mg PO DAILY #30 tablet. 06/03/16 07/06/19 Rx Clopidogrel [Plavix] 75 mg PO DAILY #30 tab 06/03/16 07/06/19 Rx amLODIPine [Norvasc] 5 mg PO DAILY #30 tab 06/03/16 07/06/19 Rx cloNIDine HCL [Catapres] 0.2 mg PO BID #60 tab 06/03/16 07/06/19 Rx Atorvastatin [Lipitor] 80 mg PO HS 03/22/19 07/06/19 History Losartan Potassium 100 mg PO DAILY 03/22/19 07/06/19 History Pantoprazole [Protonix] 40 mg PO HS 03/22/19 07/06/19 History Vitamin E 180mg 180 mg PO DAILY 03/22/19 07/06/19 History Acetaminophen [Tylenol] 1,000 mg PO Q4-6H PRN 07/06/19 07/06/19 History Citalopram Hydrobromide [CeleXA] 40 mg PO HS 07/06/19 07/06/19 History Allergies Allergy/AdvReac Type Severity Reaction Status Date / Time No Known Allergies Allergy Verified 07/06/19 12:03 Physical Exam Vitals: Vital Signs Temp Pulse Resp BP Pulse Ox 07/07/19 07:00 98.1 F 71 16 150/74 94 L 07/07/19 01:40 98.0 F 68 17 143/78 93 L 07/06/19 23:32 98.9 F 75 18 138/65 95 07/06/19 20:50 101.5 F H 99 18 195/79 92 L 07/06/19 15:22 99.2 F 84 16 151/70 95 Intake and Output 07/07/19 07/07/19 07/07/19 06:59 14:59 22:59 Other: # Voids 1 GENERAL DESCRIPTION: Elderly female lying in bed, no distress. No tachypnea or accessory muscle of respiration use. HEENT: Shows Pallor , no scleral icterus. Oral mucous membrane is dry. No pharyngeal erythema or thrush NECK: Trachea central, no thyromegaly. LUNGS: Unlabored breathing. Clear to auscultation anteriorly. No wheeze or crackle. HEART: S1, S2, regular rate and rhythm. No loud murmur ABDOMEN: Soft, no tenderness , guarding or rigidity, no organomegaly EXTREMITIES: No edema of feet. SKIN: No rash, no masses palpable. NEUROLOGICAL: The patient is awake, alert, oriented x3, mood and affect normal. Results CBC & Chem 7: 07/07/19 06:21 07/07/19 06:21 Labs: Abnormal Lab Results - Last 24 Hours (Table) 07/06/19 07/06/19 07/06/19 Range/Units 16:50 20:45 21:48 Hgb (11.4-16.0) gm/dL Hct (34.0-46.0) % RDW (11.5-15.5) % Glucose (74-99) mg/dL POC Glucose (mg/dL) 225 H 186 H 219 H (75-99) mg/dL Total Protein (6.3-8.2) g/dL Albumin (3.5-5.0) g/dL 07/07/19 07/07/19 07/07/19 Range/Units 06:21 06:21 06:49 Hgb 10.7 L (11.4-16.0) gm/dL Hct 32.3 L (34.0-46.0) % RDW 15.8 H (11.5-15.5) % Glucose 160 H (74-99) mg/dL POC Glucose (mg/dL) 156 H (75-99) mg/dL Total Protein 5.9 L (6.3-8.2) g/dL Albumin 3.0 L (3.5-5.0) g/dL 07/07/19 Range/Units 11:22 Hgb (11.4-16.0) gm/dL Hct (34.0-46.0) % RDW (11.5-15.5) % Glucose (74-99) mg/dL POC Glucose (mg/dL) 150 H (75-99) mg/dL Total Protein (6.3-8.2) g/dL Albumin (3.5-5.0) g/dL Microbiology - Last 24 Hours (Table) 07/06/19 12:09 Blood Culture - Preliminary Blood No Growth after 24 hours 07/06/19 12:09 Urine Culture - Preliminary Urine,Catheterized Assessment and Plan Assessment: 1-patient presents hospital with sepsis in this patient who did have a fever tachycardia source is likely urinary this patient who did have evidence of left- sided hydronephrosis with the patient's symptoms of mental status changes in this elderly lady with a history of recurrent UTI more likely source is urine tract infection currently with no other clinical focus of infection abdominal complete examination no evidence of any pneumonia or cellulitis (1) Sepsis Current Visit: Yes Status: Acute Code(s): A41.9 - SEPSIS, UNSPECIFIED ORGANISM SNOMED Code(s): 41672478 (2) Urinary tract infection Current Visit: Yes Status: Acute Code(s): N39.0 - URINARY TRACT INFECTION, SITE NOT SPECIFIED SNOMED Code(s): 24029179 Plan: 1-vancomycin pharmacy to dose target trough of 15 while watching his kidney function and vancomycin trough closely plus Rocephin 1 g daily 2-gentle IV fluid We will follow on clinical condition and cultures to further adjust medication if needed Thank you for this consultation will follow this patient along with you Time with Patient: Greater than 30
[2019-07-08] MEDS: VANCOMYCIN 2,000 MG in SODIUM CHLORIDE 0.9% 500 ML 500 ML IVPB SCH ×2 (00:04→16:24)
[2019-07-08 07:16] LABS: Glucose,Whole Blood 142 mg/dL (75-99)
[2019-07-08] MEDS: metFORMIN 500 MG TAB PO SCH ×2 (07:39→17:40)
[2019-07-08] MEDS: CLOPIDOGREL 75 MG TAB PO SCH (07:39)
[2019-07-08] MEDS: cloNIDine HCL 0.2 MG TAB PO SCH ×2 (07:39→20:43)
[2019-07-08] MEDS: LOSARTAN 50 MG TAB PO SCH (07:39)
[2019-07-08] MEDS: ASPIRIN 81 MG PO SCH (07:40)
[2019-07-08] MEDS: amLODIPine 5 MG TAB PO SCH (07:40)
[2019-07-08] MEDS: INSULIN ASPART (NovoLOG) 100 UNIT/ML VIAL SQ SCH ×4 (07:44→21:01)
[2019-07-08 07:51] LABS: African American GFR (CKD) >90 (>60 ml/min/1.73 sqM); Anion Gap 9 mmol/L; Blood Urea Nitrogen 10 mg/dL (7-17); Carbon Dioxide 23 mmol/L (22-30); Chloride 105 mmol/L (98-107); Glucose 147 mg/dL (74-99); Potassium 3.7 mmol/L (3.5-5.1); Sodium 137 mmol/L (137-145)
[2019-07-08] MEDS: ACETAMINOPHEN TAB 500 MG TAB PO PRN ×2 (10:38→17:40)
[2019-07-08] MEDS: SODIUM CHLORIDE 0.9% 1,000 ML IV SCH (10:42)
[2019-07-08 11:50] LABS: Glucose,Whole Blood 156 mg/dL (75-99)
--- NOTE | 2019-07-08 12:34 | P.PN ---
Subjective Patient resting in family at bedside. Noted to have left-sided weakness states she feels improved no further flank pain awaiting consultation from urology has seen infectious disease Objective - Vital Signs Vital signs: Vital Signs Temp 100.6 F H 07/08/19 10:44 Pulse 94 07/08/19 07:03 Resp 16 07/08/19 07:03 BP 160/74 07/08/19 10:44 Pulse Ox 91 L 07/08/19 07:03 Intake & Output 07/07/19 07/08/19 07/08/19 18:59 06:59 18:59 Intake Total 950 525 Balance 950 525 Intake: Intake, IV Titration 950 Amount Sodium Chloride 0.9% 1, 450 000 ml @ 50 mls/hr IV . Q20H BRODY Rx#:[id number] Vancomycin 2,000 mg In 500 Sodium Chloride 0.9% 500 ml 500 ml @ 167 mls/hr IVPB Q16H BRODY Rx#: [id number] Oral 525 Other: Voiding Method Bedside Commode # Voids 2 - Constitutional General appearance: Present: morbidly obese - EENT Eyes: Present: PERRLA Ears: bilateral: normal - Neck Neck: Present: normal ROM - Respiratory Respiratory: bilateral: diminished - Cardiovascular Rhythm: regular - Peripheral edema leg Peripheral Edema: left: 3+ - Gastrointestinal General gastrointestinal: Present: soft - Integumentary Integumentary: Present: normal - Neurologic Neurologic: Present: CNII-XII intact - Musculoskeletal Musculoskeletal: Present: left sided weakness - Psychiatric Psychiatric: Present: A&O x's 3, appropriate affect, intact judgment & insight - Labs CBC & Chem 7: 07/07/19 06:21 07/08/19 07:20 Labs: Abnormal Lab Results - Last 24 Hours (Table) 07/07/19 07/07/19 07/08/19 Range/Units 17:21 20:08 07:00 Glucose (74-99) mg/dL POC Glucose (mg/dL) 153 H 168 H 142 H (75-99) mg/dL 07/08/19 07/08/19 Range/Units 07:20 11:41 Glucose 147 H (74-99) mg/dL POC Glucose (mg/dL) 156 H (75-99) mg/dL Microbiology - Last 24 Hours (Table) 07/06/19 12:09 Urine Culture - Preliminary Urine,Catheterized Presumptive Staph aureus 07/06/19 12:09 Blood Culture - Preliminary Blood No Growth after 24 hours Assessment and Plan Plan: Assessment Acute urinary tract infection sepsis positive staph aureus Left hydronephrosis no flank pain at this time Hypertension diabetes type 2 History of CVA/TIA with left-sided weakness Obesity BMI 42 Bed bound Plan Patient is seen infectious disease Awaiting consultation from urology regarding hydronephrosis
--- NOTE | 2019-07-08 14:08 | CDI ---
Documentation Clarification Form Date: 07/08/2019 1:59:01 PM From: Tiffanie DunnFranciscoALTHEA, CCDS Admit Date: 07/06/2019 2:13:00 PM Patient Name: Joanna Segovia Visit Number: [id number] Discharge Date: ATTENTION: The Clinical Documentation Specialists (CDI) and [facility] Coding Staff appreciate your assistance in clarifying documentation. Please respond to the clarification below the line at the bottom and electronically sign. The CDI & [facility] Coding staff will review the response and follow-up if needed. Please note: Queries are made part of the Legal Health Record. If you have any questions, please contact the author of this message via ITS. Dr. Nedra Dutta: Per the Infectious Disease consult: the patient has had a fever x3 days with mental status changes. Slightly confused & lethargic in ED. History/Risk Factors: Hypertension, Diabetes Mellitus, CVA/TIA, Obesity, BMI 42.3, bedridden, previous UTIs & former smoker. Clinical Indicators: Presented with fever, back & leg pain & nausea. History of ESBL & MRSA. Diagnosed with Sepsis & pyonephrosis. VS: T 100.5^, P 93, R 18, BP 139/71, PO 91 RA - 88 RA Labs: WBC (7.6), Hgb 10.9*, Na 136*, gluc 245^, Albumin 3.4*. UA: positive Home meds: ASA, Tylenol, Glucophage, Catapres, Norvasc, Protonix, Losartan K, Plavix, Celexa, Lipitor Treatment: IV fluid, IV Rocephin, IV Vancomycin In your professional opinion, can you please clarify the specific type of Encephalopathy, if known? Hypertensive Encephalopathy Metabolic Encephalopathy Septic Encephalopathy Toxic Encephalopathy Other, please specify Unable to determine (Last Revision: January 2018) _septic encephalopathy secondary to UTI MTDD
[2019-07-08 17:48] LABS: Glucose,Whole Blood 187 mg/dL (75-99)
[2019-07-08] MEDS: ATORVASTATIN 80 MG TAB PO SCH (20:42)
[2019-07-08] MEDS: CITALOPRAM HYDROBROMIDE 20 MG TAB PO SCH (20:43)
[2019-07-08] MEDS: PANTOPRAZOLE 40 MG TABLET PO SCH (20:43)
[2019-07-08 21:06] LABS: Glucose,Whole Blood 149 mg/dL (75-99)
--- NOTE | 2019-07-08 23:19 | PN ---
PROGRESS NOTE DATE OF SERVICE: 07/08/2019 REASON FOR FOLLOWUP: Urinary tract infection. INTERVAL HISTORY: The patient did have a low-grade fever of 100.6 this morning. The patient was afebrile since then. Overall, the patient has been breathing comfortably. Denies having any chest pain or shortness of breath or cough. No nausea or vomiting. No abdominal pain or diarrhea. PHYSICAL EXAMINATION: Blood pressure 152/72 with a pulse of 86, temperature 98.8. She is 97% on 2 L nasal cannula. General description is an elderly female lying in bed in no distress. RESPIRATORY SYSTEM: Unlabored breathing. Clear to auscultation anteriorly. HEART: S1, S2. Regular rate and rhythm. ABDOMEN: Soft. No tenderness. LABS: Hemoglobin is 10.7, white count 9.6. Creatinine is normal. Urine has been finalized with MRSA. Blood culture has been negative. DIAGNOSTIC IMPRESSION AND PLAN: Patient with methicillin-resistant Staphylococcus aeruginosa urinary tract infection in this patient who did have evidence of left-sided hydronephrosis on the CT. May benefit from urology evaluation. Vancomycin to continue. Discontinue the Rocephin and continue with supportive care. MMODL / IJN: [id number] /
[2019-07-09] MEDS ORDERED: VANCOMYCIN TROUGH DUE 1 EACH MISC MISCELLANE ONE (07:00)
[2019-07-09 07:27] LABS: Glucose,Whole Blood 161 mg/dL (75-99)
[2019-07-09 07:30] LABS: African American GFR (CKD) >90 (>60 ml/min/1.73 sqM); Anion Gap 9 mmol/L; Blood Urea Nitrogen 8 mg/dL (7-17); Calcium 8.5 mg/dL (8.4-10.2); Carbon Dioxide 27 mmol/L (22-30); Chloride 102 mmol/L (98-107); Glucose 155 mg/dL (74-99); Potassium 3.4 mmol/L (3.5-5.1); Sodium 138 mmol/L (137-145)
[2019-07-09] MEDS: SODIUM CHLORIDE 0.9% 1,000 ML IV SCH (08:01)
[2019-07-09] MEDS: INSULIN ASPART (NovoLOG) 100 UNIT/ML VIAL SQ SCH ×4 (08:02→20:44)
[2019-07-09] MEDS: LOSARTAN 50 MG TAB PO SCH (08:03)
[2019-07-09] MEDS: cloNIDine HCL 0.2 MG TAB PO SCH ×2 (08:03→19:59)
[2019-07-09] MEDS: CLOPIDOGREL 75 MG TAB PO SCH (08:03)
[2019-07-09] MEDS: amLODIPine 5 MG TAB PO SCH (08:03)
[2019-07-09] MEDS: ASPIRIN 81 MG PO SCH (08:03)
[2019-07-09] MEDS: VANCOMYCIN 2,000 MG in SODIUM CHLORIDE 0.9% 500 ML 500 ML IVPB SCH ×2 (08:03→23:46)
[2019-07-09] MEDS: metFORMIN 500 MG TAB PO SCH ×2 (08:03→16:28)
[2019-07-09] MEDS ORDERED: Potassium Replacement Protocol 1 EACH MISC MISCELLANE PRN (08:11)
[2019-07-09] MEDS: POTASSIUM CHLORIDE ER 20 MEQ TAB.ER PO SCH ×2 (08:32→09:49)
[2019-07-09 09:34] LABS: Basophils % (A) 1 %; Eosinophils # (A) 0.1 k/uL (0-0.7); Eosinophils % (A) 1 %; HCT 28.8 % (34.0-46.0); HGB 9.6 gm/dL (11.4-16.0); Hypochromasia Slight; Lymphocytes # (A) 1.3 k/uL (1.0-4.8); Lymphocytes % (A) 21 %; MCH 27.4 pg (25.0-35.0); MCHC 33.3 g/dL (31.0-37.0); MCV 82.3 fL (80.0-100.0); Mean Platelet Volume 6.3; Monocytes # (A) 0.3 k/uL (0-1.0); Monocytes % (A) 5 %; Neutrophils # (A) 4.3 k/uL (1.3-7.7); Neutrophils % (A) 71 %; Platelet Count 229 k/uL (150-450); WBC 6.2 k/uL (3.8-10.6)
[2019-07-09 12:27] LABS: Glucose,Whole Blood 126 mg/dL (75-99)
--- NOTE | 2019-07-09 12:44 | P.PN ---
Subjective Patient resting in bed without complaint family at bedside awaiting consultation from urology regarding hydronephrosis awaiting continue consultation with infectious disease regarding discharge home on oral antibiotics. Objective - Vital Signs Vital signs: Vital Signs Temp 98.7 F 07/09/19 05:07 Pulse 91 07/09/19 05:07 Resp 20 07/09/19 05:07 BP 176/72 07/09/19 05:07 Pulse Ox 91 L 07/09/19 05:07 Intake & Output 07/08/19 07/09/19 07/09/19 18:59 06:59 18:59 Intake Total 540 Balance 540 Intake: Oral 540 Other: Voiding Method Bedside Commode # Voids 3 2 - Constitutional General appearance: Present: mild distress - EENT Eyes: Present: PERRLA Ears: bilateral: normal - Neck Neck: Present: normal ROM - Respiratory Respiratory: bilateral: CTA - Cardiovascular Rhythm: regular - Integumentary Integumentary: Present: normal - Neurologic Neurologic: Present: CNII-XII intact - Musculoskeletal Musculoskeletal: Present: left sided weakness - Psychiatric Psychiatric: Present: A&O x's 3, appropriate affect, intact judgment & insight - Labs CBC & Chem 7: 07/09/19 07:04 07/09/19 07:04 Labs: Abnormal Lab Results - Last 24 Hours (Table) 07/08/19 07/08/19 07/09/19 Range/Units 17:34 20:56 07:04 RBC (3.80-5.40) m/uL Hgb (11.4-16.0) gm/dL Hct (34.0-46.0) % Potassium 3.4 L (3.5-5.1) mmol/L Glucose 155 H (74-99) mg/dL POC Glucose (mg/dL) 187 H 149 H (75-99) mg/dL 07/09/19 07/09/19 07/09/19 Range/Units 07:04 07:16 12:25 RBC 3.50 L (3.80-5.40) m/uL Hgb 9.6 L (11.4-16.0) gm/dL Hct 28.8 L (34.0-46.0) % Potassium (3.5-5.1) mmol/L Glucose (74-99) mg/dL POC Glucose (mg/dL) 161 H 126 H (75-99) mg/dL Microbiology - Last 24 Hours (Table) 07/06/19 12:09 Urine Culture - Final Urine,Catheterized Methicillin resist S. aureus 07/06/19 12:09 Blood Culture - Preliminary Blood No Growth after 48 hours Assessment and Plan Plan: Assessment Acute urinary tract infection sepsis staph aureus Left hydronephrosis Hypertension Diabetes type 2 History of CVA with left-sided weakness Obesity BMI 42 Bed bound Plan Need recommendation from infectious disease for oral antibiotics at home Needs consultation regarding hydronephrosis from urology Hopeful discharge soon
--- NOTE | 2019-07-09 14:04 | PN ---
PROGRESS NOTE DATE OF SERVICE: 07/09/2019 REASON FOR FOLLOWUP: MRSA urinary tract infection. INTERVAL HISTORY: The patient is currently afebrile. He has been breathing comfortably. Denies having any chest pain or cough. No nausea, no vomiting, no abdominal pain and wants to go home. PHYSICAL EXAMINATION: Blood pressure 176/72 with a pulse of 91, temperature 98.7, and 91% on 1 L nasal cannula. General description is an elderly female, up in the chair in no distress. RESPIRATORY SYSTEM: Unlabored breathing with decreased breath sounds, no wheeze. HEART: S1, S2. Regular rate and rhythm. ABDOMEN: Soft, no tenderness. LABS: Hemoglobin is 9.1, white count of 6.2, creatinine 0.6. Blood culture negative. Urine with MRSA. DIAGNOSTIC IMPRESSION AND PLAN: Patient with MRSA urinary tract infection complicated, she did have mild left hydronephrosis, Urology consultation was requested. Patient is set on going home. Antibiotic has been transitioned to oral Bactrim DS twice a day. Prescription has been sent down to the Pharmacy with close outpatient followup. MMODL / IJN: [id number] /
--- NOTE | 2019-07-09 14:20 | XR ---
EXAMINATION TYPE: XR chest 1V portable DATE OF EXAM: 07/09/2019 COMPARISON: 07/06/2019 HISTORY: Decreased oxygen saturation TECHNIQUE: Single frontal view of the chest is obtained. FINDINGS: Heart is prominent. There is basilar subsegmental consolidation. No pneumothorax. The hal ent is rotated which limits the exam. IMPRESSION: A basilar subsegmental consolidation. There remains mild interstitial prominence which c ould represent very mild venous congestion or interstitial pneumonitis. Correlate clinically.
[2019-07-09 17:10] LABS: Glucose,Whole Blood 139 mg/dL (75-99)
--- NOTE | 2019-07-09 19:39 | P.GSCN ---
History of Present Illness Consult date: 07/09/19 Reason for Consult: Left Hydronephrosis Requesting physician: Jose E Sheet History of present illness: Ms. Segovia is a 63 years old female admitted for UTI. Denies She underwent a RBUS which showed left sided hydronephrosis. She denies any flank pain denies any urinary symptoms at baseline. Denies any history of gross hematuria or hx of renal calculi. creatinine is a baseline, she is currently on Abx for her UTI. Denies any previous surgeries. Review of Systems - Constitutional Denies chills, Denies fever - EENT Ears, nose, mouth and throat: Denies headache - Cardiovascular Reports leg edema, Denies chest pain - Respiratory Denies cough, Denies dyspnea - Gastrointestinal Denies abdominal pain, Denies nausea, Denies vomiting - Neurological Denies weakness - Psychiatric Denies confusion, Denies depression Past Medical History Past Medical History: CVA/TIA, Diabetes Mellitus, Hypertension Additional Past Medical History / Comment(s): cva x3 History of Any Multi-Drug Resistant Organisms: ESBL, MRSA Year Discovered:: 06/07/19 MRSA & ESBL-E.coli MDRO Source:: Urine-RSA & ESBL Past Surgical History: Tubal Ligation Additional Past Surgical History / Comment(s): CAROTID ENDART TO CLEAN OUT NECK ARTERY LEFT; security monitor chip placed Past Anesthesia/Blood Transfusion Reactions: No Reported Reaction Past Psychological History: Depression Smoking Status: Former smoker Past Alcohol Use History: None Reported Past Drug Use History: None Reported - Past Family History Brother(s) Family Medical History: No Reported History Sister(s) Family Medical History: Diabetes Mellitus Additional Family Medical History / Comment(s): RENAL FAILURE, ABCESSES Medications and Allergies Home Medications Medication Instructions Recorded Confirmed Type metFORMIN HCL [Glucophage] 500 mg PO AC-BID 05/30/16 07/06/19 History Aspirin [Adult Low Dose Aspirin EC] 81 mg PO DAILY #30 tablet. 06/03/16 07/06/19 Rx Clopidogrel [Plavix] 75 mg PO DAILY #30 tab 06/03/16 07/06/19 Rx amLODIPine [Norvasc] 5 mg PO DAILY #30 tab 06/03/16 07/06/19 Rx cloNIDine HCL [Catapres] 0.2 mg PO BID #60 tab 06/03/16 07/06/19 Rx Atorvastatin [Lipitor] 80 mg PO HS 03/22/19 07/06/19 History Losartan Potassium 100 mg PO DAILY 03/22/19 07/06/19 History Pantoprazole [Protonix] 40 mg PO HS 03/22/19 07/06/19 History Vitamin E 180mg 180 mg PO DAILY 03/22/19 07/06/19 History Acetaminophen [Tylenol] 1,000 mg PO Q4-6H PRN 07/06/19 07/06/19 History Citalopram Hydrobromide [CeleXA] 40 mg PO HS 07/06/19 07/06/19 History Sulfamethox-Tmp 800-160Mg [Bactrim 1 tab PO Q12HR #20 tab 07/09/19 Rx DS 800-160 mg] Allergies Allergy/AdvReac Type Severity Reaction Status Date / Time No Known Allergies Allergy Verified 07/06/19 12:03 Surgical - Exam Vital Signs Temp Pulse Resp BP Pulse Ox 100.5 F H 93 18 139/71 91 L 07/06/19 11:24 07/06/19 11:24 07/06/19 11:24 07/06/19 11:24 07/06/19 11:24 - General no distress, no pain - ENT no hearing loss, no nasal discharge - Respiratory normal expansion, normal respiratory effort - Abdomen Abdomen: soft, non tender, no distended - Psychiatric oriented to time, oriented to person, oriented to place Results - Labs 07/09/19 07:04 07/09/19 12:55 Abnormal Lab Results - Last 24 Hours (Table) 07/08/19 07/09/19 07/09/19 Range/Units 20:56 07:04 07:04 RBC 3.50 L (3.80-5.40) m/uL Hgb 9.6 L (11.4-16.0) gm/dL Hct 28.8 L (34.0-46.0) % Potassium 3.4 L (3.5-5.1) mmol/L Glucose 155 H (74-99) mg/dL POC Glucose (mg/dL) 149 H (75-99) mg/dL 07/09/19 07/09/19 07/09/19 Range/Units 07:16 12:25 17:07 RBC (3.80-5.40) m/uL Hgb (11.4-16.0) gm/dL Hct (34.0-46.0) % Potassium (3.5-5.1) mmol/L Glucose (74-99) mg/dL POC Glucose (mg/dL) 161 H 126 H 139 H (75-99) mg/dL Microbiology - Last 24 Hours (Table) 07/06/19 12:09 Blood Culture - Preliminary Blood No Growth after 72 hours 07/06/19 12:09 Urine Culture - Final Urine,Catheterized Methicillin resist S. aureus Diabetes panel 07/09/19 07/09/19 Range/Units 07:04 12:55 Sodium 138 (137-145) mmol/L Potassium 3.4 L 3.5 (3.5-5.1) mmol/L Chloride 102 (98-107) mmol/L Carbon Dioxide 27 (22-30) mmol/L BUN 8 (7-17) mg/dL Creatinine 0.66 (0.52-1.04) mg/dL Glucose 155 H (74-99) mg/dL Calcium 8.5 (8.4-10.2) mg/dL Calcium panel 07/09/19 Range/Units 07:04 Calcium 8.5 (8.4-10.2) mg/dL Pituitary panel 07/09/19 07/09/19 Range/Units 07:04 12:55 Sodium 138 (137-145) mmol/L Potassium 3.4 L 3.5 (3.5-5.1) mmol/L Chloride 102 (98-107) mmol/L Carbon Dioxide 27 (22-30) mmol/L BUN 8 (7-17) mg/dL Creatinine 0.66 (0.52-1.04) mg/dL Glucose 155 H (74-99) mg/dL Calcium 8.5 (8.4-10.2) mg/dL Adrenal panel 07/09/19 07/09/19 Range/Units 07:04 12:55 Sodium 138 (137-145) mmol/L Potassium 3.4 L 3.5 (3.5-5.1) mmol/L Chloride 102 (98-107) mmol/L Carbon Dioxide 27 (22-30) mmol/L BUN 8 (7-17) mg/dL Creatinine 0.66 (0.52-1.04) mg/dL Glucose 155 H (74-99) mg/dL Calcium 8.5 (8.4-10.2) mg/dL Assessment and Plan Assessment: 63-year-old female admitted with UTI she underwent renal ultrasound that showed left-sided hydronephrosis, is asymptomatic creatinine is at baseline . Plan: -continue abx for UTI -Obtain CT renal stone protocol
[2019-07-09] MEDS: PANTOPRAZOLE 40 MG TABLET PO SCH (19:59)
[2019-07-09] MEDS: ATORVASTATIN 80 MG TAB PO SCH (19:59)
[2019-07-09] MEDS: CITALOPRAM HYDROBROMIDE 20 MG TAB PO SCH (19:59)
[2019-07-09 20:53] LABS: Glucose,Whole Blood 154 mg/dL (75-99)
--- NOTE | 2019-07-09 22:30 | CT ---
EXAMINATION TYPE: CT renal stones wo con DATE OF EXAM: 07/09/2019 HISTORY: UTI, sepsis CT DLP: 1543.1 mGycm. Automated Exposure Control for Dose Reduction was Utilized. TECHNIQUE: CT scan of the abdomen and pelvis is performed without oral or IV contrast. COMPARISON: FINDINGS: Heart is enlarged. There is some atelectasis at the right posterior lung bases with pleural thickening. There is mild basilar pulmonary infiltrates also. Liver shows no focal defect. Spleen is intact. There is no evidence of pancreatic mass. Gallbladder a ppears normal. Bile ducts are not dilated. Stomach is intact. There is no adrenal mass. There is moderate left-sided hydronephrosis. There is 1 cm calculus in the dependent left renal dilated pelvis. The ureters are not dilated. There is 5 mm calculus posterior le ft kidney. The right kidney shows no hydronephrosis. There is no retroperitoneal adenopathy. Bladder distends smoothly. There is no inguinal hernia. There is no free fluid in the pelvis. There i s no mesenteric edema. There is no ascites or free air. There is no sign of a bowel obstruction. Lumb ar vertebra have normal alignment. Disc spaces are fairly normal. There is no compression fracture. T here is hypertrophic spurring in the lumbar spine. The bony pelvis appears intact. Exam is limited so mewhat by patient size. Appendix appears normal. IMPRESSION: Moderate left-sided hydronephrosis. Left renal calculi. No obstructing calculus seen. Normal appendix . Basilar pulmonary infiltrates and atelectasis and pleural thickening. No significant renal atrophy.
[2019-07-10] MEDS: SODIUM CHLORIDE 0.9% 1,000 ML IV SCH (03:26)
[2019-07-10 07:59] LABS: Glucose,Whole Blood 156 mg/dL (75-99)
[2019-07-10] MEDS: INSULIN ASPART (NovoLOG) 100 UNIT/ML VIAL SQ SCH ×3 (08:09→16:44)
[2019-07-10] MEDS: LOSARTAN 50 MG TAB PO SCH (08:09)
[2019-07-10] MEDS: CLOPIDOGREL 75 MG TAB PO SCH (08:09)
[2019-07-10] MEDS: metFORMIN 500 MG TAB PO SCH ×2 (08:10→16:44)
[2019-07-10] MEDS: cloNIDine HCL 0.2 MG TAB PO SCH (08:10)
[2019-07-10] MEDS: amLODIPine 5 MG TAB PO SCH (08:10)
[2019-07-10] MEDS: ASPIRIN 81 MG PO SCH (08:10)
[2019-07-10 11:38] LABS: Glucose,Whole Blood 150 mg/dL (75-99)
[2019-07-10 13:48] VITALS: BP 135/71; PULSE 61; RESP 18; TEMP 98
[2019-07-10] MEDS: VANCOMYCIN 2,000 MG in SODIUM CHLORIDE 0.9% 500 ML 500 ML IVPB SCH (16:37)
--- NOTE | 2019-07-10 19:51 | PN ---
PROGRESS NOTE DATE OF SERVICE: 07/10/2019 REASON FOR FOLLOW UP: MRSA urinary tract infection. INTERVAL HISTORY: The patient is currently afebrile. The patient has been breathing comfortably. Denies having any chest pain, shortness of breath or cough. Slightly upset for not being able to be discharged. No nausea, vomiting. No abdominal pain. No diarrhea and no urinary symptoms currently. PHYSICAL EXAMINATION: Blood pressure 135/71 with pulse of 61, temperature 98. She is 97% on 2 L nasal cannula. General description is an elderly female up in the bed in no distress. RESPIRATORY SYSTEM: Unlabored breathing with decreased breath sounds at the base. No wheeze. HEART: S1, S2. Regular rate and rhythm. ABDOMEN: Soft. No tenderness. LABS: White count 6.2, creatinine 0.66. Blood culture negative. DIAGNOSTIC IMPRESSION AND PLAN: Patient with methicillin-resistant Staphylococcus aeruginosa urinary tract infection in this patient who did have moderate left-sided hydronephrosis, possibly complicated urinary tract infection. Urology is already on the case. Keep the patient on vancomycin at this point until her respiratory status stabilizes. She may benefit from pulmonary evaluation. Continue with supportive care. MMODL / IJN: [id number] /
--- NOTE | 2019-07-11 11:56 | P.DS ---
Providers Date of admission: 07/06/19 14:13 Expected date of discharge: 07/10/19 Attending physician: Rhys Holley Consults: 07/06/19 21:34 Consult Physician Routine Consulting Provider: Nedra Dutta Consult Reason/Comments: UTI, failed outpt therapy Do you want consulting provider notified?: Yes 07/06/19 21:35 Consult Physician Routine Consulting Provider: Jamar Gilbert Consult Reason/Comments: left hydroneprhosis Do you want consulting provider notified?: Yes Primary care physician: Rhys Holley Hospital Course: 63-year-old female was admitted to the emergency room. Patient is bedbound with history of CVA left-sided weakness. Patient is a Dom in left for transfer. Patient stated she was having fever 1015. Patient was treated for urinary tract infection found to have a staph aureus was seen by urology and infectious disease recommended Bactrim DS. Patient noted to have left hydronephrosis asymptomatic Assessment Urinary tract infection sepsis staph aureus Asymptomatic left hydronephrosis Hypertension Diabetes type 2 History of CVA with left-sided weakness Obesity BMI 42 Patient's bedbound Plan Follow-up with family physician Dr. Rhys Holley and urology Home care PT was ordered Patient Condition at Discharge: Good Plan - Discharge Summary New Discharge Prescriptions: New Sulfamethox-Tmp 800-160Mg [Bactrim DS 800-160 mg] 1 tab PO Q12HR #20 tab Continue metFORMIN HCL [Glucophage] 500 mg PO AC-BID Clopidogrel [Plavix] 75 mg PO DAILY #30 tab amLODIPine [Norvasc] 5 mg PO DAILY #30 tab cloNIDine HCL [Catapres] 0.2 mg PO BID #60 tab Aspirin [Adult Low Dose Aspirin EC] 81 mg PO DAILY #30 tablet. Atorvastatin [Lipitor] 80 mg PO HS Vitamin E 180mg 180 mg PO DAILY Pantoprazole [Protonix] 40 mg PO HS Losartan Potassium 100 mg PO DAILY Citalopram Hydrobromide [CeleXA] 40 mg PO HS Acetaminophen [Tylenol] 1,000 mg PO Q4-6H PRN PRN Reason: Pain Discharge Medication List metFORMIN HCL [Glucophage] 500 mg PO AC-BID 05/30/16 [History] Aspirin [Adult Low Dose Aspirin EC] 81 mg PO DAILY #30 tablet. 06/03/16 [Rx] Clopidogrel [Plavix] 75 mg PO DAILY #30 tab 06/03/16 [Rx] amLODIPine [Norvasc] 5 mg PO DAILY #30 tab 06/03/16 [Rx] cloNIDine HCL [Catapres] 0.2 mg PO BID #60 tab 06/03/16 [Rx] Atorvastatin [Lipitor] 80 mg PO HS 03/22/19 [History] Losartan Potassium 100 mg PO DAILY 03/22/19 [History] Pantoprazole [Protonix] 40 mg PO HS 03/22/19 [History] Vitamin E 180mg 180 mg PO DAILY 03/22/19 [History] Acetaminophen [Tylenol] 1,000 mg PO Q4-6H PRN 07/06/19 [History] Citalopram Hydrobromide [CeleXA] 40 mg PO HS 07/06/19 [History] Sulfamethox-Tmp 800-160Mg [Bactrim DS 800-160 mg] 1 tab PO Q12HR #20 tab 07/09/19 [Rx] Follow up Appointment(s)/Referral(s): Rhys Holley MD [Primary Care Provider] - 07/12/19 11:00 am Daniel Combs MD [STAFF PHYSICIAN] - 07/17/19 9:20 am (Please bring insurace cards and ID) [facility], [NON-STAFF] - Nedra Dutta MD [STAFF PHYSICIAN] - 07/23/19 1:45 pm Patient Instructions/Handouts: MRSA (Methicillin-Resistant Staphylococcus Aureus) (DC), Urinary Tract Infection in Women (DC), Hydronephrosis (DC) Discharge Disposition: HOME WITH HOME HEALTH SERVICES
== END 2019-07-10 17:05 | disposition home health service (06) | DRG 871 ==
LOC: EC 11:13 → 4SSUR 14:13 → 4MS4W 07-07 15:16
PROVIDERS: ADMIT Family Medicine; ATTEND Family Medicine
DX: A41.02 Sepsis due to Methicillin resistant Staphylococcus aureus (principal); G93.41 Metabolic encephalopathy; Z68.41 Body mass index [BMI] 40.0-44.9, adult; I69.354 Hemiplegia and hemiparesis following cerebral infarction affecting left non-dominant side; N13.6 Pyonephrosis; E11.9 Type 2 diabetes mellitus without complications; E66.9 Obesity, unspecified; I10 Essential (primary) hypertension; Z74.01 Bed confinement status; Z79.02 Long term (current) use of antithrombotics/antiplatelets; Z79.82 Long term (current) use of aspirin; Z79.84 Long term (current) use of oral hypoglycemic drugs; Z79.899 Other long term (current) drug therapy; Z83.3 Family history of diabetes mellitus; Z87.440 Personal history of urinary (tract) infections; Z87.891 Personal history of nicotine dependence; Z86.14 Personal history of Methicillin resistant Staphylococcus aureus infection; F32.9 Major depressive disorder, single episode, unspecified; R65.20 Severe sepsis without septic shock
CPT/HCPCS: 36415; 71045; 71046; 74150; 76770; 80048; 80053; 80202; 81001; 83605; 83880; 84132; 85025; 85610; 85730; 87040; 87077; 87086; 87186; 93005; 99285

== ENCOUNTER 2019-10-09 15:36 | Inpatient (IN) | payer MEDICARE, BC ==
[2019-10-09] MEDS ORDERED: SODIUM CHLORIDE 0.9% 500 ML 500 ML IV STA (15:58)
[2019-10-09] MEDS ORDERED: SODIUM CHLORIDE 0.9% 1,000 ML IV STA (15:58)
[2019-10-09] MEDS ORDERED: DILTIAZEM DRIP BOLUS FROM BAG 1 MG SOLN IV ONE ×2 (16:08→17:48)
--- NOTE | 2019-10-09 16:15 | ED ---
Fever HPI - General Chief Complaint: Fever Stated Complaint: Fever, weakness Time Seen by Provider: 10/09/19 15:48 Source: patient, family, RN notes reviewed Mode of arrival: ambulatory Limitations: physical limitation - History of Present Illness Initial Comments: This is a 64-year-old female with a history of CVA 3 among other medical issues who presents with complaints of the onset of a fever early this morning with cough of white phlegm. She just generally doesn't feel well and feels weak. No chest pain. She did have some nausea vomiting. She denies any palpitations but upon arrival was noted have a markedly elevated heart rate with apparent atrial fibrillation. No prior history of this. He does have residual left-sided weakness. MD Complaint: fever, weakness - Related Data Home Medications Medication Instructions Recorded Confirmed metFORMIN HCL [Glucophage] 500 mg PO AC-BID 05/30/16 07/06/19 Atorvastatin [Lipitor] 80 mg PO HS 03/22/19 07/06/19 Losartan Potassium 100 mg PO DAILY 03/22/19 07/06/19 Pantoprazole [Protonix] 40 mg PO HS 03/22/19 07/06/19 Vitamin E 180mg 180 mg PO DAILY 03/22/19 07/06/19 Acetaminophen [Tylenol] 1,000 mg PO Q4-6H PRN 07/06/19 07/06/19 Citalopram Hydrobromide [CeleXA] 40 mg PO HS 07/06/19 07/06/19 Previous Rx's Medication Instructions Recorded Aspirin [Adult Low Dose Aspirin EC] 81 mg PO DAILY #30 tablet. 06/03/16 Clopidogrel [Plavix] 75 mg PO DAILY #30 tab 06/03/16 amLODIPine [Norvasc] 5 mg PO DAILY #30 tab 06/03/16 cloNIDine HCL [Catapres] 0.2 mg PO BID #60 tab 06/03/16 Sulfamethox-Tmp 800-160Mg [Bactrim 1 tab PO Q12HR #20 tab 07/09/19 DS 800-160 mg] Allergies Allergy/AdvReac Type Severity Reaction Status Date / Time No Known Allergies Allergy Verified 10/09/19 15:48 Review of Systems ROS Statement: Those systems with pertinent positive or pertinent negative responses have been documented in the HPI. ROS Other: All systems not noted in ROS Statement are negative. Past Medical History Past Medical History: CVA/TIA, Diabetes Mellitus, Hypertension Additional Past Medical History / Comment(s): cva x3- lt sided weakness History of Any Multi-Drug Resistant Organisms: ESBL, MRSA Date of last positivie culture/infection: 07/06/19 MRSA & ESBL-E.coli MDRO Source:: Urine-MRSA & ESBL Past Surgical History: Tubal Ligation Additional Past Surgical History / Comment(s): CAROTID ENDART TO CLEAN OUT NECK ARTERY LEFT; playground monitor chip placed Past Anesthesia/Blood Transfusion Reactions: No Reported Reaction Past Psychological History: Depression Smoking Status: Former smoker Past Alcohol Use History: None Reported Past Drug Use History: None Reported - Past Family History Brother(s) Family Medical History: No Reported History Sister(s) Family Medical History: Diabetes Mellitus Additional Family Medical History / Comment(s): RENAL FAILURE, ABCESSES General Exam - General Exam Comments Initial Comments: Is a well-developed morbidly obese female who is awake alert oriented 3 Limitations: physical limitation General appearance: alert, anxious Head exam: Present: atraumatic, normocephalic, normal inspection Eye exam: Present: normal appearance, PERRL, EOMI. Absent: scleral icterus, conjunctival injection, periorbital swelling ENT exam: Present: mucous membranes dry Neck exam: Present: normal inspection. Absent: tenderness, meningismus, lymphadenopathy Respiratory exam: Present: normal lung sounds bilaterally. Absent: respiratory distress, wheezes, rales, rhonchi, stridor Cardiovascular Exam: Present: tachycardia, irregular rhythm. Absent: systolic murmur, diastolic murmur, rubs, gallop, clicks GI/Abdominal exam: Present: soft, normal bowel sounds. Absent: distended, tenderness, guarding, rebound, rigid Extremities exam: Present: normal inspection, normal capillary refill. Absent: full ROM, tenderness, pedal edema, joint swelling, calf tenderness Back exam: Present: normal inspection Neurological exam: Present: alert, oriented X3, CN II-XII intact, motor sensory deficit (Residual left-sided) Psychiatric exam: Present: normal affect, normal mood Skin exam: Present: warm, dry, intact, normal color. Absent: rash Course Vital Signs 10/09/19 10/09/19 10/09/19 15:44 16:15 18:07 Temperature 99.5 F Pulse Rate 125 H 170 H 151 H Respiratory 24 16 18 Rate Blood Pressure 185/104 218/113 188/73 O2 Sat by Pulse 90 L 93 L 96 Oximetry - Reevaluation(s) Reevaluation #1: 10/09/19 19:04 I did reevaluate patient on multiple occasions patient remains in A. fib with [facility]VR Medical Decision Making - Medical Decision Making I did discuss the findings with the patient and multiple family members patient did present with a fever rapid atrial fibrillation elevated white blood cell count magnesium level 0.7 glucose of 327 suspected right lower lobe infiltrate she'll be admitted. I did discuss case with Dr. Pino who is covering Dr. Holley. - Lab Data Result diagrams: 10/09/19 16:14 10/09/19 16:14 Lab Results 10/09/19 10/09/19 10/09/19 Range/Units 16:14 16:14 16:14 WBC 16.3 H (3.8-10.6) k/uL RBC 4.86 (3.80-5.40) m/uL Hgb 12.1 (11.4-16.0) gm/dL Hct 39.2 (34.0-46.0) % MCV 80.7 (80.0-100.0) fL MCH 24.9 L (25.0-35.0) pg MCHC 30.9 L (31.0-37.0) g/dL RDW 14.1 (11.5-15.5) % Plt Count 311 (150-450) k/uL Neutrophils % 91 % Lymphocytes % 4 % Monocytes % 4 % Eosinophils % 1 % Basophils % 0 % Neutrophils # 14.9 H (1.3-7.7) k/uL Lymphocytes # 0.6 L (1.0-4.8) k/uL Monocytes # 0.6 (0-1.0) k/uL Eosinophils # 0.1 (0-0.7) k/uL Basophils # 0.0 (0-0.2) k/uL Hypochromasia Slight Sodium 132 L (137-145) mmol/L Potassium 4.8 (3.5-5.1) mmol/L Chloride 100 (98-107) mmol/L Carbon Dioxide 17 L (22-30) mmol/L Anion Gap 15 mmol/L BUN 15 (7-17) mg/dL Creatinine 0.81 (0.52-1.04) mg/dL Est GFR (CKD-EPI)AfAm 88 (>60 ml/min/1.73 sqM) Est GFR (CKD-EPI)NonAf 76 (>60 ml/min/1.73 sqM) Glucose 327 H (74-99) mg/dL Calcium 10.0 (8.4-10.2) mg/dL Magnesium 0.7 L* (1.6-2.3) mg/dL Total Bilirubin 1.1 (0.2-1.3) mg/dL AST 23 (14-36) U/L ALT 13 (4-34) U/L Alkaline Phosphatase 119 (38-126) U/L Creatine Kinase 57 (30-135) U/L Troponin I 0.021 (0.000-0.034) ng/mL Total Protein 7.8 (6.3-8.2) g/dL Albumin 4.2 (3.5-5.0) g/dL Influenza Type A RNA (Not Detectd) Influenza Type B (PCR) (Not Detectd) 10/09/19 Range/Units Unknown WBC (3.8-10.6) k/uL RBC (3.80-5.40) m/uL Hgb (11.4-16.0) gm/dL Hct (34.0-46.0) % MCV (80.0-100.0) fL MCH (25.0-35.0) pg MCHC (31.0-37.0) g/dL RDW (11.5-15.5) % Plt Count (150-450) k/uL Neutrophils % % Lymphocytes % % Monocytes % % Eosinophils % % Basophils % % Neutrophils # (1.3-7.7) k/uL Lymphocytes # (1.0-4.8) k/uL Monocytes # (0-1.0) k/uL Eosinophils # (0-0.7) k/uL Basophils # (0-0.2) k/uL Hypochromasia Sodium (137-145) mmol/L Potassium (3.5-5.1) mmol/L Chloride (98-107) mmol/L Carbon Dioxide (22-30) mmol/L Anion Gap mmol/L BUN (7-17) mg/dL Creatinine (0.52-1.04) mg/dL Est GFR (CKD-EPI)AfAm (>60 ml/min/1.73 sqM) Est GFR (CKD-EPI)NonAf (>60 ml/min/1.73 sqM) Glucose (74-99) mg/dL Calcium (8.4-10.2) mg/dL Magnesium (1.6-2.3) mg/dL Total Bilirubin (0.2-1.3) mg/dL AST (14-36) U/L ALT (4-34) U/L Alkaline Phosphatase (38-126) U/L Creatine Kinase (30-135) U/L Troponin I (0.000-0.034) ng/mL Total Protein (6.3-8.2) g/dL Albumin (3.5-5.0) g/dL Influenza Type A RNA Not Detected (Not Detectd) Influenza Type B (PCR) Not Detected (Not Detectd) - EKG Data -: EKG Interpreted by Me EKG Comments: Atrial fibrillation with a rapid ventricular response rate of 150 to QRS 88 QT since QTC 294/[address] configuration - Radiology Data Radiology results: report reviewed (I did review the imaging and report evidence right lower lobe atelectasis), image reviewed Critical Care Time Critical Care Time: Yes Critical Care Time: 35 minutes of critical care time which includes initial presentation with history physical labs x-rays multiple reevaluation the patient review of old charting was available discussed with multiple family members discussion with the main physician admission orders and documentation of the above Disposition Clinical Impression: Rapid atrial fibrillation, Right lower lobe pneumonitis, Febrile illness, acute, Leukocytosis, Hyperglycemia Disposition[facility] Condition: Fair Referrals: Rhys Holley MD [Primary Care Provider] - 1-2 days
[2019-10-09] MEDS: DILTIAZEM 125 MG in SODIUM CHLORIDE 0.9% 100 ML IV SCH (16:20)
[2019-10-09 16:29] LABS: Basophils % (A) 0 %; Eosinophils # (A) 0.1 k/uL (0-0.7); Eosinophils % (A) 1 %; HCT 39.2 % (34.0-46.0); HGB 12.1 gm/dL (11.4-16.0); Hypochromasia Slight; Lymphocytes # (A) 0.6 k/uL (1.0-4.8); Lymphocytes % (A) 4 %; MCH 24.9 pg (25.0-35.0); MCHC 30.9 g/dL (31.0-37.0); MCV 80.7 fL (80.0-100.0); Mean Platelet Volume 7.4; Monocytes # (A) 0.6 k/uL (0-1.0); Monocytes % (A) 4 %; Neutrophils # (A) 14.9 k/uL (1.3-7.7); Neutrophils % (A) 91 %; Platelet Count 311 k/uL (150-450); RBC 4.86 m/uL (3.80-5.40); RDW 14.1 % (11.5-15.5); WBC 16.3 k/uL (3.8-10.6)
[2019-10-09 16:41] LABS: Albumin 4.2 g/dL (3.5-5.0); Potassium 4.8 mmol/L (3.5-5.1); Total Bilirubin 1.1 mg/dL (0.2-1.3); Total Protein 7.8 g/dL (6.3-8.2)
[2019-10-09 16:50] LABS: Magnesium 0.7 mg/dL (1.6-2.3)
--- NOTE | 2019-10-09 17:10 | XR ---
EXAMINATION TYPE: XR chest 2V DATE OF EXAM: 10/09/2019 COMPARISON: 07/09/2019 HISTORY: Fever TECHNIQUE: 2 views FINDINGS: There is poor inspiration. Lungs are clear of consolidation. There is no heart failure. The re is coarsening of the lung markings with mild atelectasis at the lung bases. There are chest leads. IMPRESSION: There is new mild atelectasis at the lung bases compared to old exam. No obvious heart fa ilure.
[2019-10-09] MEDS ORDERED: ACETAMINOPHEN TAB 325 MG TAB PO STA (17:48)
[2019-10-09] MEDS ORDERED: ONDANSETRON 4 MG/2 ML VIAL IVP STA (17:55)
[2019-10-09] MEDS: MAGNESIUM SULFATE-D5W PMX 1 GM in DEXTROSE/WATER 1 100ML.BAG IVPB SCH ×2 (18:01→19:51)
[2019-10-09] MEDS ORDERED: PNEUMONIA PROTOCOL UTILIZED 1 EACH MISC PO PRN (19:07)
[2019-10-09] MEDS ORDERED: AZITHROMYCIN 500 MG in SODIUM CHLORIDE 0.9% 250 ML IVPB STA (19:07)
[2019-10-09] MEDS ORDERED: HEPARIN SODIUM,PORCINE 5,000 UNIT/ML 1 ML VIAL IV ONE (19:11)
[2019-10-09] MEDS ORDERED: HEPARIN SODIUM,PORCINE 5,000 UNIT/ML 1 ML VIAL IV PRN (19:11)
[2019-10-09] MEDS ORDERED: HEPARIN SOD,PORK IN 0.45% NACL 25,000 UNIT in 0.45% NACL 1 250ML.BAG IV SCH (19:15)
[2019-10-09] MEDS ORDERED: SODIUM CHLORIDE 0.9% 1,000 ML IV SCH (19:15)
[2019-10-09 19:38] LABS: Appearance,Urine Clear (Clear); Bacteria,Urine Rare /hpf; Bilirubin,Urine Negative (Negative); Blood,Urine Trace (Negative); Color,Urine Light Yellow; Glucose,Urine (UA) 4+ (Negative); Ketones,Urine 1+ (Negative); Leukocyte Esterase,Urine Negative (Negative); Mucus,Urine Rare /hpf; Nitrite,Urine Negative (Negative); Protein,Urine 2+ (Negative); RBC,Urine 2 /hpf (0-5); Specific Gravity,Urine 1.009 (1.001-1.035); Urobilinogen,Urine <2.0 mg/dL (<2.0); WBC,Urine 2 /hpf (0-5)
[2019-10-09 19:39] LABS: INR 1.1 (<1.2); Partial Thromboplastin Time 26.9 sec (22.0-30.0); Prothrombin Time 11.3 sec (9.0-12.0)
[2019-10-09 21:19] LABS: Glucose,Whole Blood 356 mg/dL (75-99)
[2019-10-09] MEDS: IPRATROPIUM-ALBUTEROL 3 ML NEB INHALATION SCH (21:29)
[2019-10-09] MEDS ORDERED: Potassium Replacement Protocol 1 EACH MISC MISCELLANE PRN (22:00)
[2019-10-09] MEDS ORDERED: Magnesium Replacement Protocol 1 EACH MISC MISCELLANE PRN (22:00)
[2019-10-09] MEDS ORDERED: ALPRAZolam 0.25 MG TAB PO PRN (22:00)
[2019-10-09] MEDS: PANTOPRAZOLE 40 MG TABLET PO SCH (22:46)
[2019-10-09] MEDS: CITALOPRAM HYDROBROMIDE 20 MG TAB PO SCH (22:47)
[2019-10-09] MEDS: cloNIDine HCL 0.2 MG TAB PO SCH (22:47)
[2019-10-09] MEDS: ATORVASTATIN 80 MG TAB PO SCH (22:47)
[2019-10-10] MEDS: OSELTAMIVIR 75 MG CAP PO SCH ×3 (00:29→20:46)
[2019-10-10] MEDS: ACETAMINOPHEN TAB 500 MG TAB PO PRN ×3 (02:03→16:14)
[2019-10-10] MEDS: DILTIAZEM 125 MG in SODIUM CHLORIDE 0.9% 100 ML IV SCH (05:40)
[2019-10-10 06:04] LABS: Glucose,Whole Blood 294 mg/dL (75-99)
[2019-10-10 06:09] LABS: Basophils % (A) 0 %; Eosinophils # (A) 0.2 k/uL (0-0.7); Eosinophils % (A) 1 %; HCT 32.4 % (34.0-46.0); HGB 10.3 gm/dL (11.4-16.0); Hypochromasia Slight; Lymphocytes # (A) 1.3 k/uL (1.0-4.8); Lymphocytes % (A) 8 %; MCH 25.6 pg (25.0-35.0); MCHC 31.7 g/dL (31.0-37.0); MCV 80.8 fL (80.0-100.0); Mean Platelet Volume 8.2; Monocytes # (A) 0.8 k/uL (0-1.0); Monocytes % (A) 5 %; Neutrophils # (A) 12.9 k/uL (1.3-7.7); Neutrophils % (A) 84 %; Platelet Count 253 k/uL (150-450); RBC 4.01 m/uL (3.80-5.40); RDW 14.4 % (11.5-15.5); WBC 15.5 k/uL (3.8-10.6)
[2019-10-10 06:23] LABS: Calcium 8.9 mg/dL (8.4-10.2); Magnesium 1.1 mg/dL (1.6-2.3); Potassium 4.1 mmol/L (3.5-5.1)
[2019-10-10] MEDS: INSULIN ASPART (NovoLOG) 100 UNIT/ML VIAL SQ SCH ×4 (06:34→20:59)
[2019-10-10] MEDS: metFORMIN 500 MG TAB PO SCH ×2 (06:43→17:43)
[2019-10-10] MEDS: IPRATROPIUM-ALBUTEROL 3 ML NEB INHALATION SCH ×4 (07:19→20:09)
[2019-10-10] MEDS: cloNIDine HCL 0.2 MG TAB PO SCH ×2 (08:50→20:21)
[2019-10-10] MEDS: amLODIPine 5 MG TAB PO SCH (08:50)
[2019-10-10] MEDS: MAGNESIUM SULFATE-D5W PMX 1 GM in DEXTROSE/WATER 1 100ML.BAG IVPB SCH ×5 (08:50→17:39)
[2019-10-10] MEDS: LOSARTAN 50 MG TAB PO SCH (08:50)
[2019-10-10] MEDS: CLOPIDOGREL 75 MG TAB PO SCH (08:50)
--- NOTE | 2019-10-10 08:56 | HP ---
HISTORY AND PHYSICAL DATE OF SERVICE: 10/09/2019 CHIEF COMPLAINT: Shortness of breath and cough history and fever and weakness. HISTORY OF PRESENT ILLNESS: This is a 64-year-old woman with a past medical history of multiple problems including CVA, TIA with left-sided hemiplegia, history of diabetes, hypertension, history of ESBL and MRSA, history of tubal ligation, depression, being followed by Dr. Rhys Holley in the outpatient setting, was not feeling well since the last 2 days. 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 Patient has generalized weakness and tiredness. The patient has some nausea and vomiting and the patient came to [facility], admitted for further evaluation and treatment. There is no history of any headache, loss of consciousness, seizures. Otherwise, the patient also was found to have atrial fibrillation with fast ventricular rate in the ER and Cardizem drip was initiated. Patient also had severe hypomagnesemia, improved. Magnesium 0.7. Of note, the patient also had a Reveal monitor which showed multiple episodes of atrial fibrillation lasting for several hours recently and medication adjusted and the patient started on Eliquis also as an outpatient. There is no history of any headache, loss of consciousness. PAST MEDICAL HISTORY: History of CVA, TIA, diabetes mellitus, hypertension, history of ESBL E coli, ESBL and MRSA. MEDICATIONS: Prior to admission include, home medications are: 1. Lopressor 25 mg p.o. daily. 2. Celexa 40 mg q.h.s. 3. Lipitor 80 mg q.h.s. 4. Eliquis 5 mg p.o. b.i.d. 5. Glucophage 500 mg b.i.d. 6. Catapres 0.2 b.i.d. 7. Norvasc 5 mg p.o. daily. 8. Protonix 40 mg p.o. daily. 9. Losartan 100 mg p.o. daily. ALLERGIES: None. FAMILY HISTORY: History of renal failure, abscess in the family. SOCIAL HISTORY: Previous history of smoking. No history of current smoking or alcohol. REVIEW OF SYSTEMS: ENT: Diminished hearing, diminished vision. CARDIOVASCULAR SYSTEM: No angina, palpitations as mentioned earlier. RESPIRATION: As mentioned earlier. GI: No nausea, no diarrhea. : No dysuria. NERVOUS SYSTEM: As mentioned earlier. ALLERGIES: No asthma or hayfever. MUSCULOSKELETAL: As mentioned earlier. HEMATOLOGY/ONCOLOGY: As mentioned earlier. ENDOCRINE: As mentioned earlier. CONSTITUTIONAL: As mentioned earlier. DERMATOLOGY: Negative. RHEUMATOLOGY: Negative. PSYCHIATRY: As mentioned earlier. PHYSICAL EXAMINATION: Alert and oriented x3. Pulse is 77, blood pressure 140/60, respiration 18, temp 99.6, pulse ox 94% on 2 L. HEENT: Conjunctivae normal. Oral mucosa moist. NECK: No jugular venous distention. No lymph node enlargement. No carotid bruit. CARDIOVASCULAR SYSTEM: S1, S2, muffled. No S3, no S4. RESPIRATION: Breath sounds diminished at the bases, bilateral scattered rhonchi, no crackles. Expiratory wheezing also present. ABDOMEN: Soft, nontender. No mass palpable, obese. LEGS: Minimal bilateral leg edema, nonpitting, otherwise. NERVOUS SYSTEM: Higher functions as mentioned earlier. There is left hemiplegia with grade 0-1 power present, otherwise. SKIN: No ulcer, rash, bleeding. JOINTS: No active deformity. LYMPHATICS: No lymph node enlargement. CURRENT LABS: WBC IS 16.3, hemoglobin 12.2, sodium 132 and the magnesium is 0.7, glucose 356. Ketones positive and influenza negative. ASSESSMENT: 1. Acute bilateral pneumonia, right more than the left, possibly gram-negative, with possible early sepsis present on admission. 2. Diabetes mellitus type 2 with hyperglycemia, rule out DKA. 3. Severe hypomagnesemia. 4. Atrial fibrillation with rapid ventricular rate. 5. Paroxysmal atrial fibrillation history. 6. Hyponatremia. 7. Increased WBC. 8. Old left-sided stroke with weakness with gait dysfunction. 9. Hypertension. 10.History of ESBL and MRSA. 11.History of tubal ligation. 12.Carotid endarterectomy, left. 13.History of depression. 14.Remote history of nicotine dependence. 15.Obesity with body mass index of 45.7. RECOMMENDATION: This is a 64-year-old woman who presented with multiple complex medical issues, will monitor the patient closely, continue with the current management and symptomatic treatment. Will initiate broad-spectrum IV antibiotics, bronchodilators I would also recommend Cardiology consultation and continue to monitor, otherwise continue the Cardizem drip. The patient is on heparin. This will continue to monitor. Guarded prognosis because of multiple complex medical issues. Further recommendations to follow. We will also consult Pulmonology. Guarded prognosis because of multiple complex medical issues. Further recommendations to follow. Discussed with the family who understands. MMODL / IJN: [id number] /
[2019-10-10] MEDS ORDERED: ASPIRIN 81 MG PO SCH (09:00)
--- NOTE | 2019-10-10 09:07 | XR ---
EXAMINATION TYPE: XR chest 1V portable DATE OF EXAM: 10/10/2019 COMPARISON: 10/09/2019 HISTORY: Pneumonia TECHNIQUE: Single frontal view of the chest is obtained. FINDINGS: There is poor inspiration. Lungs are clear of consolidation. There is no heart failure. Th ere is coarsening of the lung markings with mild atelectasis at the lung bases. There are chest leads . IMPRESSION: 1. Bibasilar atelectasis or infiltrate correlate clinically
--- NOTE | 2019-10-10 09:53 | ECHOF ---
Referral Reason:afib MEASUREMENTS -------- HEIGHT: 157.5 cm WEIGHT: 85.7 kg BP: 132/62 IVSd: 1.5 cm (0.6 - 1.1) LVIDd: 4.5 cm (3.9 - 5.3) LVPWd: 1.4 cm (0.6 - 1.1) IVSs: 1.8 cm LVIDs: 3.9 cm LVPWs: 1.7 cm LA Diam: 5.1 cm (2.7 - 3.8) LAESV Index (A-L): 45.29 ml/m Ao Diam: 2.3 cm (2.0 - 3.7) LA Diam: 3.4 cm (2.7 - 3.8) MV E Kanu: 0.97 m/s MV DecT: 133 ms MV A Kanu: 0.93 m/s MV E/A Ratio: 1.04 AV maxP.56 mmHg AV meanP.14 mmHg RAP: 5.00 mmHg RVSP: 34.77 mmHg FINDINGS -------- Sinus rhythm. This was a techncally difficult study with suboptimal views, , Lumason utilized for enhancement of im ages. The left ventricular size is normal. There is moderate concentric left ventricular hypertrophy. T here is normal global left ventricular contractility. Overall left ventricular systolic function is normal with, an EF between 55 - 60 %. The right ventricle is normal in size. LA is severely dilated >40 ml/m2 The right atrial size is normal. 5.0mg OF Lumason UTLIZED: 2 OR MORE WALL SEGMENTS NOT VISUALIZED. There is mild aortic valve sclerosis. There is mild aortic stenosis present. Peak/mean gradient a cross the Aortic Valve is 19.56mmHg / 11.14mmHg. Moderate mitral annular calcification present. Mild mitral regurgitation is present. Mild tricuspid regurgitation present. There is no evidence of pulmonary hypertension. The right v entricular systolic pressure, as measured by Doppler, is 34.77mmHg. The pulmonic valve was not well visualized. There is no pulmonic regurgitation present. Echo free space represents a pericardial fat pad. CONCLUSIONS -------- 1. Sinus rhythm. 2. This was a techncally difficult study with suboptimal views, , Lumason utilized for enhancement of images. 3. The left ventricular size is normal. 4. There is moderate concentric left ventricular hypertrophy. 5. There is normal global left ventricular contractility. 6. LA is severely dilated >40 ml/m2 7. 5.0mg OF Lumason UTLIZED: 2 OR MORE WALL SEGMENTS NOT VISUALIZED. 8. There is mild aortic stenosis present. 9. Peak/mean gradient across the Aortic Valve is 19.56mmHg / 11.14mmHg. 10. Moderate mitral annular calcification present. 11. Mild mitral regurgitation is present. 12. Mild tricuspid regurgitation present. 13. There is no evidence of pulmonary hypertension. 14. The pulmonic valve was not well visualized. 15. Echo free space represents a pericardial fat pad. PARKING MANAGER: Connie Ramirez RDCS
--- NOTE | 2019-10-10 10:43 | P.CRDCN ---
History of Present Illness Consult date: 10/10/19 Requesting physician: Kristi Pino Consult reason: atrial fibrillation Chief complaint: Shortness of breath History of present illness: This is a 64-year-old female with history of prior left carotid endarterectomy, diabetes, hypertension, hyperlipidemia, CVA 3, she has had a loop recorder placed because of her recurrent CVAs, and recently it was noted that the patient was having episodes of atrial fibrillation, she was initiated on Eliquis as an outpatient. She continues at this time to have a loop recorder in place. Patient presented to the hospital on this admission with moderate to severe shortness of breath. Prior to presentation here she also had a fever at home, she's been having a mild cough but nothing significant, feeling much more weak at home than usual. Patient does have left-sided weakness which she's been known to have since her stroke. Chest x-ray on presentation here revealed new mild atelectasis at the lung bases compared with prior exam. No obvious heart failure. EKG on presentation here showed atrial fibrillation with a rapid ventricular response, subsequent EKG showed normal sinus rhythm with no acute changes. Echocardiogram with Doppler study was performed which revealed a normal left ventricular systolic function, chest x-ray showed bibasilar atelectasis. Blood pressure on arrival here 184/104 with a heart rate of 170, 90% on room air, and low-grade temperature of 99.5. Temperature this morning is 101.1, blood pressure 184/60, 95% on room air. White blood cell count 16.3 on admission, 15.5 this morning, hemoglobin 12.1 on admission, 10.3 this morning, platelet count 253. Sodium 132, potassium 4.1, BUN 15, creatinine 0.9. Blood glucose level on arrival here 356, to 94 this morning. Magnesium level on arrival 0.7, 1.1 this morning. BNP level 3390. Troponin 0.021. Influenza A and B-. 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 Past Anesthesia/Blood Transfusion Reactions: No Reported Reaction Past Psychological History: Depression Smoking Status: Former smoker Past Alcohol Use History: None Reported Past Drug Use History: None Reported - Past Family History Brother(s) Family Medical History: No Reported History Sister(s) Family Medical History: Diabetes Mellitus Additional Family Medical History / Comment(s): RENAL FAILURE, ABCESSES Medications and Allergies Home Medications Medication Instructions Recorded Confirmed Type metFORMIN HCL [Glucophage] 500 mg PO AC-BID 05/30/16 10/09/19 History amLODIPine [Norvasc] 5 mg PO DAILY #30 tab 06/03/16 10/09/19 Rx cloNIDine HCL [Catapres] 0.2 mg PO BID #60 tab 06/03/16 10/09/19 Rx Atorvastatin [Lipitor] 80 mg PO HS 03/22/19 10/09/19 History Losartan Potassium 100 mg PO DAILY 03/22/19 10/09/19 History Pantoprazole [Protonix] 40 mg PO DAILY 03/22/19 10/09/19 History Citalopram Hydrobromide [CeleXA] 40 mg PO HS 07/06/19 10/09/19 History Apixaban [Eliquis] 5 mg PO BID 10/09/19 10/09/19 History Metoprolol Tartrate [Lopressor] 25 mg PO DAILY 10/09/19 10/09/19 History Allergies Allergy/AdvReac Type Severity Reaction Status Date / Time No Known Allergies Allergy Verified 10/09/19 21:08 Physical Exam Vitals: Vital Signs Temp Pulse Pulse Resp BP BP Pulse Ox 10/10/19 09:42 20 10/10/19 08:55 101.1 F H 66 20 184/66 95 10/10/19 07:29 76 10/10/19 07:10 72 96 10/10/19 04:00 99.9 F H 79 16 132/62 90 L 10/10/19 02:07 103.1 F H 10/10/19 00:30 16 10/09/19 21:45 78 10/09/19 21:29 76 97 10/09/19 21:00 99.6 F 77 18 140/61 94 L 10/09/19 20:40 98 F 88 18 172/84 98 10/09/19 18:07 151 H 18 188/73 96 10/09/19 16:15 170 H 16 218/113 93 L 10/09/19 15:44 99.5 F 125 H 24 185/104 90 L Intake and Output 10/09/19 10/10/19 10/10/19 22:59 06:59 14:59 Intake Total 51.666 158.821 Output Total 800 Balance 51.666 -641.179 Intake: Intake, IV Titration 51.666 158.821 Amount Diltiazem 125 mg In 51.666 73.334 Sodium Chloride 0.9% 100 ml @ 10 MG/HR 10 mls/hr IV .[id number] [facility] Rx#: [id number] Heparin Sod,Pork in 0.45% 85.487 NaCl 25,000 unit In 0.45 % NaCl 1 250ml.bag @ 8.8 UNITS/KG/HR 9.979 mls/hr IV .Q24H [facility] Rx#: [id number] Output: Urine 800 Other: Voiding Method Indwelling Catheter Indwelling Catheter Weight 113.398 kg 85.9 kg PHYSICAL EXAMINATION: GENERAL: 64-year-old female in no acute distress at the time of my examination HEENT: Head is atraumatic, normocephalic. Pupils equal, round. Sclera anicteric. Conjunctiva are clear. Mucous membranes of the mouth are moist. Neck is supple. There is no elevated jugular venous pressure. No carotid bruit is heard. HEART EXAMINATION: Heart S1, S2 systolic murmur is heard . CHEST EXAMINATION: Lungs reveal coarse crackles bilaterally ABDOMEN: Soft, obese, nontender. Bowel sounds are heard. No organomegaly noted. EXTREMITIES: 2+ peripheral pulses with 1+ evidence of peripheral edema left leg much more swollen than the right, chronic . NEUROLOGIC patient is awake, alert and oriented X3, left-sided flaccid. . Results 10/10/19 05:41 10/10/19 05:41 Cardiac Enzymes 10/09/19 10/09/19 Range/Units 16:14 16:14 AST 23 (14-36) U/L Troponin I 0.021 (0.000-0.034) ng/mL Coagulation 10/09/19 10/10/19 Range/Units 16:14 01:45 PT 11.3 (9.0-12.0) sec APTT 26.9 34.0 H (22.0-30.0) sec CBC 10/09/19 10/10/19 Range/Units 16:14 05:41 WBC 16.3 H 15.5 H (3.8-10.6) k/uL RBC 4.86 4.01 (3.80-5.40) m/uL Hgb 12.1 10.3 L (11.4-16.0) gm/dL Hct 39.2 32.4 L (34.0-46.0) % Plt Count 311 253 (150-450) k/uL Comprehensive Metabolic Panel 10/09/19 10/10/19 Range/Units 16:14 05:41 Sodium 132 L 132 L (137-145) mmol/L Potassium 4.8 4.1 (3.5-5.1) mmol/L Chloride 100 101 (98-107) mmol/L Carbon Dioxide 17 L 23 (22-30) mmol/L BUN 15 15 (7-17) mg/dL Creatinine 0.81 0.94 (0.52-1.04) mg/dL Glucose 327 H 285 H (74-99) mg/dL Calcium 10.0 8.9 (8.4-10.2) mg/dL AST 23 (14-36) U/L ALT 13 (4-34) U/L Alkaline Phosphatase 119 (38-126) U/L Total Protein 7.8 (6.3-8.2) g/dL Albumin 4.2 (3.5-5.0) g/dL Current Medications Generic Name Dose Route Start Last Admin Trade Name Freq PRN Reason Stop Dose Admin Acetaminophen 1,000 mg 10/09/19 19:11 10/10/19 08:55 Tylenol Tab PO 1,000 mg Q4H PRN Administration Mild Pain Hydrocodone Bitart/Acetaminophen 1 each 10/09/19 22:00 [place] 5-325 PO Q6HR PRN Pain Albuterol/Ipratropium 3 ml 10/09/19 20:00 10/10/19 07:19 Duoneb 0.5 Mg-3 Mg/3 Ml Soln INHALATION 3 ml RT-QID [facility] Administration Alprazolam 0.25 mg 10/09/19 22:00 Xanax PO TID PRN Anxiety Amlodipine Besylate 5 mg 10/10/19 09:00 10/10/19 08:50 Norvasc PO 5 mg DAILY [facility] Administration Aspirin 81 mg 10/10/19 09:00 10/10/19 08:50 Aspirin PO 81 mg DAILY [facility] Administration Atorvastatin Calcium 80 mg 10/09/19 21:00 10/09/19 22:47 Lipitor PO 80 mg HS [facility] Administration Azithromycin 500 mg 10/10/19 21:00 Zithromax PO HS [facility] Citalopram Hydrobromide 40 mg 10/09/19 21:00 10/09/19 22:47 Celexa PO 40 mg HS [facility] Administration Clonidine 0.2 mg 10/09/19 21:00 10/10/19 08:50 Catapres PO 0.2 mg BID [facility] Administration Clopidogrel Bisulfate 75 mg 10/10/19 09:00 10/10/19 08:50 Plavix PO 75 mg DAILY [facility] Administration Heparin Sodium (Porcine) 0 unit 10/09/19 19:11 Heparin IV PER PROTOCOL PRN Low PTT Protocol Diltiazem HCl 125 mg/ Sodium 125 mls @ 10 mls/hr 10/09/19 16:15 10/10/19 05:40 Chloride IV 5 mg/hr .[id number] [facility] 5 mls/hr Administration 10 MG/HR Sodium Chloride 1,000 mls @ 20 mls/hr 10/09/19 19:15 10/09/19 19:50 Saline 0.9% IV 20 mls/hr .Q24H [facility] Administration Ceftriaxone Sodium 1 gm/ 50 mls @ 100 mls/hr 10/09/19 21:00 10/09/19 22:46 Sodium Chloride IVPB 10/13/19 21:01 100 mls/hr HS [facility] Administration Heparin Sodium/Sodium Chloride 250 mls @ 9.979 mls/hr 10/09/19 19:15 10/10/19 04:33 25,000 unit/ Sodium Chloride IV 11.8 units/kg/hr .Q24H [facility] 13.381 mls/hr Titration Protocol 8.8 UNITS/KG/HR Magnesium Sulfate/Dextrose 1 100 mls @ 100 mls/hr 10/10/19 07:45 10/10/19 08:50 gm/ IV Solution IVPB 10/10/19 10:44 100 mls/hr Q1H [facility] Administration Insulin Aspart 0 unit 10/10/19 07:30 10/10/19 06:34 Novolog SQ 5 unit ACHS [facility] Administration Protocol Losartan Potassium 100 mg 10/10/19 09:00 10/10/19 08:50 Cozaar PO 100 mg DAILY [facility] Administration Metformin HCl 500 mg 10/10/19 07:30 10/10/19 06:43 Glucophage PO Not Given AC-BID [facility] Miscellaneous Information 1 each 10/09/19 19:07 Pneumonia Protocol Utilized PO ONCE PRN Per Protocol Miscellaneous Information 1 each 10/09/19 22:00 Magnesium Per Protocol MISCELLANE DAILY PRN Per Protocol Protocol Miscellaneous Information 1 each 10/09/19 22:00 Potassium Per Protocol MISCELLANE DAILY PRN Per Protocol Protocol Oseltamivir Phosphate 75 mg 10/09/19 22:15 10/10/19 07:35 Tamiflu PO 10/14/19 09:01 Not Given Q12HR [facility] Pantoprazole Sodium 40 mg 10/09/19 21:00 10/09/19 22:46 Protonix PO 40 mg HS [facility] Administration Intake and Output 10/09/19 10/10/19 10/10/19 22:59 06:59 14:59 Intake Total 51.666 158.821 Output Total 800 Balance 51.666 -641.179 Intake: Intake, IV Titration 51.666 158.821 Amount Diltiazem 125 mg In 51.666 73.334 Sodium Chloride 0.9% 100 ml @ 10 MG/HR 10 mls/hr IV .[id number] [facility] Rx#: [id number] Heparin Sod,Pork in 0.45% 85.487 NaCl 25,000 unit In 0.45 % NaCl 1 250ml.bag @ 8.8 UNITS/KG/HR 9.979 mls/hr IV .Q24H [facility] Rx#: [id number] Output: Urine 800 Other: Voiding Method Indwelling Catheter Indwelling Catheter Weight 113.398 kg 85.9 kg 10/10/19 05:41 10/10/19 05:41 EKG Interpretations (text) Initial EKG atrial fibrillation with rapid ventricular response, subsequent EKG normal sinus rythm Assessment and Plan Plan: Assessment and plan #1 atrial fibrillation with rapid ventricular response, paroxysmal, on Eliquis for anticoagulation at home, here she is on heparin. She is currently in normal sinus rhythm #2 hypomagnesemia, repeat being replaced #3 possible pneumonia #4 hypertension #5 diabetes #6 hyperlipidemia #7 recent diagnosis of atrial fibrillation by loop recorder #8 history of CVA 3 with residual left-sided flaccidity #9 history of MRSA and ESBL Plan We will obtain an echocardiogram with Doppler study as well as a TSH level. Discontinue the IV heparin and reinitiate Eliquis. Start the patient on a beta elizabeth. Further recommendations to follow. DNP note has been reviewed, I agree with a documented findings and plan of care. Patient was seen and examined.
[2019-10-10] MEDS: METOPROLOL TARTRATE 25 MG TAB PO SCH ×2 (11:14→20:21)
[2019-10-10] MEDS: APIXABAN 5 MG TAB PO SCH ×2 (11:14→20:21)
[2019-10-10 12:21] LABS: Glucose,Whole Blood 283 mg/dL (75-99)
[2019-10-10] MEDS ORDERED: MAGNESIUM SULFATE-D5W PMX 1 GM in DEXTROSE/WATER 1 100ML.BAG IVPB SCH (12:30)
[2019-10-10] MEDS: HYDROcodone/APAP 5-325MG 1 EACH TAB PO PRN (15:52)
[2019-10-10 17:20] LABS: Glucose,Whole Blood 228 mg/dL (75-99)
[2019-10-10] MEDS: MAGNESIUM OXIDE 400 MG TAB PO SCH ×2 (18:50→20:59)
[2019-10-10] MEDS: MORPHINE SULFATE 4 MG/ML SYRINGE IVP PRN (18:50)
--- NOTE | 2019-10-10 20:02 | US ---
EXAMINATION TYPE: US renals and bladder DATE OF EXAM: 10/10/2019 COMPARISON: 07/06/2019 CLINICAL HISTORY: Hx Left hydronephrosis-Left flank pain. Hx of hydronephrosis EXAM MEASUREMENTS: Right Kidney: 12.0 x 5.5 x 5.1cm Left Kidney: 12.0 x 4.6 x 2.7cm Right Kidney: No hydronephrosis or masses seen Left Kidney: Cortical thinning hydronephrois vs parapelvic cyst seen 3.0 x 2.8 x 3.6cm Bladder: Catheter in. Bilateral Jets seen: No No nephrolithiasis is seen. No masses are identified. IMPRESSION: There is a cyst in the lower pole right kidney that could be a parapelvic cyst or cortical cyst that appears smaller than previous ultrasound exam. No hydronephrosis. There is renal cortical atrophy wor se in the left kidney. No evidence of a solid renal mass. Urinary bladder was empty during the exam. There is a catheter in the bladder.
[2019-10-10] MEDS: CITALOPRAM HYDROBROMIDE 20 MG TAB PO SCH (20:21)
[2019-10-10] MEDS: ATORVASTATIN 80 MG TAB PO SCH (20:21)
[2019-10-10] MEDS: AZITHROMYCIN 500 MG TAB PO SCH (20:21)
[2019-10-10] MEDS: PANTOPRAZOLE 40 MG TABLET PO SCH (20:21)
[2019-10-10 20:34] LABS: Glucose,Whole Blood 203 mg/dL (75-99)
--- NOTE | 2019-10-10 21:53 | CONS ---
CONSULTATION PULMONARY/CRITICAL CARE CONSULTATION: DATE OF SERVICE: 10/10/2019 REASON FOR CONSULTATION: Fever and weakness. This is a 64-year-old obese female with a history of CVA x3. She presents to the emergency room, brought in by family members with new onset fever the day of evaluation, which was the 1st. In addition, she apparently was complaining of some cough and white phlegm production. She apparently does not feel well and feels weak. No chest pain. She apparently did have some nausea and vomiting. She denied any palpitations but upon arrival it was noted that her heart rate was quite high and she was in apparent atrial fibrillation with RVR. She also admits to some mild shortness of breath. She does have a residual left-sided weakness. The patient was lying flat in bed. She was on oxygen therapy. She states that her symptoms really have improved since she has been here, especially as it relates to the shortness of breath that she had when she first came in, she is not noticing it now. I am asked to see for possible pneumonia. Her admission diagnosis according to the ER doctor was rapid atrial fibrillation, possible right lower lobe pneumonitis, febrile illness, acute leukocytosis, and hyperglycemia. Her primary care provider is Dr. Rhys Holley. ALLERGIES: Denied. HOME MEDICATIONS: Include metoprolol, Celexa, Lipitor, Eliquis, Glucophage, Catapres, Norvasc, Protonix, and losartan. MEDICAL HISTORY: Includes CVA, diabetes mellitus, hypertension, and chronic left-sided weakness from stroke. She also has a previous history of infection with extended spectrum beta lactamase producing organisms as well as methicillin-resistant Staph aureus. SURGICAL HISTORY: Includes among other things, tubal ligation and carotid endarterectomy. SOCIAL HISTORY: Positive for previous tobacco use. She does not smoke currently. She did not smoke a lot when she did smoke. She denies any alcohol use or illicit drug use. FAMILY HISTORY: Positive for a brother with no medical problems and a sister has diabetes mellitus, renal failure, and chronic abscesses. REVIEW OF SYSTEMS: CONSTITUTIONAL: Weakness. NEUROLOGIC: Negative. HEENT: Negative. CARDIOVASCULAR: Negative. PULMONARY; Cough, mild shortness of breath and white phlegm production. GI: Nausea and vomiting. : Negative. RHEUMATOLOGIC: Negative. IMMUNOLOGIC: Negative. ENDOCRINOLOGIC: Negative. DERMATOLOGIC: Negative. PHYSICAL EXAMINATION: Current vital signs are reviewed. Temperature is 99.9, heart rate 62, respiratory rate 20, blood pressure 113/52, mean 72, room air saturation 95%. Appears in no acute distress. HEENT examination is grossly unremarkable. Mucous membranes are moist. No supplemental oxygen noted. NECK: Supple. Full range of motion. No adenopathy. Neck veins are flat. CARDIOVASCULAR examination reveals regular rhythm and rate. Heart rate about 65 beats per minute. S1, S2 normal. No murmur. LUNGS: Reveal clear breath sounds. No wheezes or rhonchi. There are no crackles. Breath sounds equal bilaterally. ABDOMEN: Soft, obese. EXTREMITIES are intact. No cyanosis or clubbing. There is significant edema. SKIN: Without rash. NEUROLOGIC: Examination is brief but nonfocal. Microbiology is currently pending or negative. LABS: Reviewed. White count 15.5, hemoglobin 10.3, hematocrit 32.4, platelet count 353,000. PTT is 46.4. Sodium 132, potassium 4.1, chloride 101, CO2 23, anion gap is 8. BUN and creatinine were 15 and 0.94. The patient had an N terminal proBNP which was 3390. The troponin was 0.021. TSH was normal. Urine looked essentially normal. Chest x-ray does show some bibasilar atelectasis. Lung volumes are small. EKG showed normal sinus rhythm. The prior EKG shows atrial fibrillation with RVR. Current medications are reviewed. They appear to be appropriate. ASSESSMENT: 1. Atrial fibrillation with rapid ventricular response. 2. Profound weakness, likely related to dehydration from nausea and vomiting. 3. Purulent tracheobronchitis versus bronchopneumonia, the former is favored over the latter. 4. History of cerebrovascular accident. 5. History of diabetes mellitus. 6. History of hyperlipidemia. 7. History of hypertension. 8. Previous history of both methicillin-resistant Staph aureus and ESBL organisms. 9. Status post carotid endarterectomy. 10.Obesity. PLAN: The patient's medications are reviewed. Please see my orders and my recommendations. I do not believe it is likely that she has an overwhelming infection. I believe that if she has a pulmonary infection, it is more likely a purulent tracheobronchitis or mild tracheobronchitis. I doubt significant pneumonia. If not already done, a procalcitonin level will be done. That might be useful in determining whether or not she has an active infection. Additional recommendations and suggestions are forthcoming. Problem list, medications and allergies are all reviewed. We will continue to follow. MMODL / IJN: [id number] /
--- NOTE | 2019-10-10 21:56 | PN ---
PROGRESS NOTE DATE OF SERVICE: 10/10/2019 This 64-year-old woman was admitted with shortness of breath as well as acute bilateral pneumonia is being closely monitored at this time. The patient is on bronchodilators and antibiotics. Patient also has some early evidence of sepsis also. The serum ketone was negative ruling out the possibility of diabetic ketoacidosis. The patient also had severe hypomagnesemia, also. PAST MEDICAL HISTORY: Reviewed. REVIEW OF SYSTEMS: Cardiovascular system: No angina or palpitations. RESPIRATORY: As mentioned earlier. GI: No nausea or vomiting. : No dysuria. CENTRAL NERVOUS SYSTEM: No numbness or weakness. CURRENT MEDICATIONS: Reviewed and include: 1. Tylenol p.r.n. 2. Hydrocodone 5 mg. 3. Albuterol q.i.d. 4. Xanax 0.25. 5. Norvasc 5 mg. 6. Eliquis 5 mg b.i.d. 7. Lipitor 80 mg. 8. Zithromax 500 mg p.o. daily. 9. Celexa. 10.Catapres 0.2 t.i.d. 11.Plavix. 12.NovoLog. 13.Cozaar. 14.Rocephin. 15.Glucophage. 16.Lopressor. 17.Tamiflu 75 mg. 18.Protonix. 19.Tamiflu started empirically. PHYSICAL EXAM: Patient is alert and oriented x3. The pulse is 60, blood pressure is 140/73, respiration 18, temperature 102.7, pulse ox 98% on 2 L. HEENT is conjunctivae normal. NECK: No jugular venous distention. CARDIOVASCULAR systems: S1, S2 muffled. RESPIRATION: Breath sounds diminished in the bases. Bilateral scattered rhonchi and crackles. ABDOMEN: Soft, nontender. LEGS are no edema. No swelling. CENTRAL NERVOUS SYSTEM: No focal deficits. LABS: Magnesium 1.1, glucose 288, sodium 132. WBC 15.5. ASSESSMENT: 1. Acute bilateral pneumonia right more the left possibly gram-negative with possible early sepsis, present on admission. 2. Diabetes mellitus type 2 with hyperglycemia. No evidence of diabetic ketoacidosis. 3. Severe hypomagnesemia. 4. Presumptive flu. 5. Atrial fibrillation with rapid ventricular rate. 6. Paroxysmal atrial fibrillation history. 7. Hyponatremia. 8. Increased WBC. 9. Old left-sided stroke with weakness and gait dysfunction. 10.Hypertension. 11.History ESBL/MRSA. 12.History of tubal ligation. 13.Carotid endarterectomy left history. 14.History of depression. 15.Remote history of nicotine dependence. 16.Obesity with body mass index of 44.7. RECOMMENDATIONS AND DISCUSSION: In this 64-year-old woman who presented with multiple complex medical issues, we will monitor the patient closely, continue the current medications, management and symptomatic treatment. Otherwise, at this time, I recommend to continue the broad- spectrum IV antibiotics, antivirals, bronchodilators. Continue the rest of medications. Guarded prognosis because of multiple complex medical issues. Further recommendations to follow. I would also recommend evaluation by the Pulmonary also. See orders for details. Guarded prognosis. A chest x-ray was done this morning and cardiology evaluation in progress also. Chest x-ray which was reviewed personally by me showed still bilateral lesions, but improving. MMODL / IJN: [id number] /
[2019-10-11 06:25] LABS: Glucose,Whole Blood 182 mg/dL (75-99)
[2019-10-11] MEDS: metFORMIN 500 MG TAB PO SCH ×2 (06:49→18:11)
[2019-10-11] MEDS: INSULIN ASPART (NovoLOG) 100 UNIT/ML VIAL SQ SCH ×4 (06:49→22:34)
[2019-10-11] MEDS: IPRATROPIUM-ALBUTEROL 3 ML NEB INHALATION SCH ×4 (07:49→20:43)
[2019-10-11 07:59] LABS: Basophils # (A) 0.1 k/uL (0-0.2); Basophils % (A) 1 %; Eosinophils % (A) 0 %; HCT 34.1 % (34.0-46.0); HGB 10.4 gm/dL (11.4-16.0); Hypochromasia Marked; Lymphocytes # (A) 0.9 k/uL (1.0-4.8); Lymphocytes % (A) 8 %; MCH 25.6 pg (25.0-35.0); MCHC 30.6 g/dL (31.0-37.0); MCV 83.5 fL (80.0-100.0); Mean Platelet Volume 7.9; Monocytes # (A) 0.4 k/uL (0-1.0); Monocytes % (A) 3 %; Neutrophils # (A) 10.1 k/uL (1.3-7.7); Neutrophils % (A) 87 %; Platelet Count 272 k/uL (150-450); RBC 4.08 m/uL (3.80-5.40); RDW 14.1 % (11.5-15.5); WBC 11.7 k/uL (3.8-10.6)
[2019-10-11 08:04] LABS: Calcium 9.3 mg/dL (8.4-10.2); Magnesium 2.3 mg/dL (1.6-2.3); Potassium 4.9 mmol/L (3.5-5.1)
[2019-10-11] MEDS: APIXABAN 5 MG TAB PO SCH ×2 (09:24→22:33)
[2019-10-11] MEDS: amLODIPine 5 MG TAB PO SCH (09:24)
[2019-10-11] MEDS: METOPROLOL TARTRATE 25 MG TAB PO SCH ×2 (09:24→22:34)
[2019-10-11] MEDS: LOSARTAN 50 MG TAB PO SCH (09:24)
[2019-10-11] MEDS: MAGNESIUM OXIDE 400 MG TAB PO SCH ×3 (09:24→22:33)
[2019-10-11] MEDS: cloNIDine HCL 0.2 MG TAB PO SCH ×2 (09:24→22:33)
[2019-10-11] MEDS: CLOPIDOGREL 75 MG TAB PO SCH (09:24)
[2019-10-11] MEDS: ACETAMINOPHEN TAB 500 MG TAB PO PRN (09:45)
[2019-10-11] MEDS: MORPHINE SULFATE 4 MG/ML SYRINGE IVP PRN ×2 (09:46→16:00)
[2019-10-11] MEDS: HYDROcodone/APAP 5-325MG 1 EACH TAB PO PRN (11:54)
--- NOTE | 2019-10-11 12:46 | P.PN ---
Subjective Progress Note Date: 10/11/19 This is a 64-year-old female with history of prior left carotid endarterectomy, diabetes, hypertension, hyperlipidemia, CVA 3, she has had a loop recorder placed because of her recurrent CVAs, and recently it was noted that the patient was having episodes of atrial fibrillation, she was initiated on Eliquis as an outpatient. She continues at this time to have a loop recorder in place. Patient presented to the hospital on this admission with moderate to severe shortness of breath. Prior to presentation here she also had a fever at home, she's been having a mild cough but nothing significant, feeling much more weak at home than usual. Patient does have left-sided weakness which she's been known to have since her stroke. Chest x-ray on presentation here revealed new mild atelectasis at the lung bases compared with prior exam. No obvious heart failure. EKG on presentation here showed atrial fibrillation with a rapid ventricular response, subsequent EKG showed normal sinus rhythm with no acute changes. Echocardiogram with Doppler study was performed which revealed a normal left ventricular systolic function, chest x-ray showed bibasilar atelectasis. Blood pressure on arrival here 184/104 with a heart rate of 170, 90% on room air, and low-grade temperature of 99.5. Temperature this morning is 101.1, blood pressure 184/60, 95% on room air. White blood cell count 16.3 on admission, 15.5 this morning, hemoglobin 12.1 on admission, 10.3 this morning, platelet count 253. Sodium 132, potassium 4.1, BUN 15, creatinine 0.9. Blood glucose level on arrival here 356, to 94 this morning. Magnesium level on arrival 0.7, 1.1 this morning. BNP level 3390. Troponin 0.021. Influenza A and B-. 10/11/2019 Patient was seen and examined this morning, she's complaining of some back discomfort from lying flat, but otherwise no complaints.blood pressure 148/60, heart rate in the 60s, 96% on 2 L. She does have a temperature of 102.7 this morning. Objective - Vital Signs Vital signs: Vital Signs Temp 102.7 F H 10/11/19 09:30 Pulse 68 10/11/19 11:35 Resp 18 10/11/19 09:30 BP 149/62 10/11/19 09:30 Pulse Ox 96 10/11/19 09:30 Intake & Output 10/10/19 10/11/19 10/11/19 18:59 06:59 18:59 Intake Total 816.344 Balance 816.344 Weight 136.5 kg Intake: Intake, IV Titration 616.344 Amount Diltiazem 125 mg In 27.583 Sodium Chloride 0.9% 100 ml @ 10 MG/HR 10 mls/hr IV .[id number] [facility] Rx#: [id number] Heparin Sod,Pork in 0.45% 88.761 NaCl 25,000 unit In 0.45 % NaCl 1 250ml.bag @ 8.8 UNITS/KG/HR 9.979 mls/hr IV .Q24H [facility]ODY Rx#: [id number] Magnesium Sulfate-D5w Pmx 500 1 gm In Dextrose/Water 1 100ml.bag @ 100 mls/hr IVPB Q1H [facility] Rx#: [id number] Oral 200 Other: Voiding Method Indwelling Catheter Indwelling Catheter - Exam PHYSICAL EXAMINATION: GENERAL: 64-year-old female in no acute distress at the time of my examination HEENT: Head is atraumatic, normocephalic. Pupils equal, round. Sclera anicteric. Conjunctiva are clear. Mucous membranes of the mouth are moist. Neck is supple. There is no elevated jugular venous pressure. No carotid bruit is heard. HEART EXAMINATION: Heart S1, S2 systolic murmur is heard . CHEST EXAMINATION: Lungs reveal coarse crackles bilaterally ABDOMEN: Soft, obese, nontender. Bowel sounds are heard. No organomegaly noted. EXTREMITIES: 2+ peripheral pulses with 1+ evidence of peripheral edema left leg much more swollen than the right, chronic . NEUROLOGIC patient is awake, alert and oriented X3, left-sided flaccid. . - Labs CBC & Chem 7: 10/11/19 07:31 10/11/19 07:31 Labs: Abnormal Lab Results - Last 24 Hours (Table) 10/10/19 10/10/19 10/11/19 Range/Units 17:04 20:33 06:22 WBC (3.8-10.6) k/uL Hgb (11.4-16.0) gm/dL MCHC (31.0-37.0) g/dL Neutrophils # (1.3-7.7) k/uL Lymphocytes # (1.0-4.8) k/uL Sodium (137-145) mmol/L Carbon Dioxide (22-30) mmol/L BUN (7-17) mg/dL Creatinine (0.52-1.04) mg/dL Glucose (74-99) mg/dL POC Glucose (mg/dL) 228 H 203 H 182 H (75-99) mg/dL 10/11/19 10/11/19 Range/Units 07:31 07:31 WBC 11.7 H (3.8-10.6) k/uL Hgb 10.4 L (11.4-16.0) gm/dL MCHC 30.6 L (31.0-37.0) g/dL Neutrophils # 10.1 H (1.3-7.7) k/uL Lymphocytes # 0.9 L (1.0-4.8) k/uL Sodium 131 L (137-145) mmol/L Carbon Dioxide 20 L (22-30) mmol/L BUN 25 H (7-17) mg/dL Creatinine 1.35 H (0.52-1.04) mg/dL Glucose 173 H (74-99) mg/dL POC Glucose (mg/dL) (75-99) mg/dL Microbiology - Last 24 Hours (Table) 10/09/19 22:49 Blood Culture - Preliminary Blood No Growth after 24 hours 10/09/19 16:14 Blood Culture - Preliminary Blood No Growth after 24 hours Assessment and Plan Plan: Assessment and plan #1 atrial fibrillation with rapid ventricular response, paroxysmal, on Eliquis for anticoagulation at home, here she is on heparin. She is currently in normal sinus rhythm #2 hypomagnesemia, repeat being replaced #3 possible pneumonia #4 hypertension #5 diabetes #6 hyperlipidemia #7 recent diagnosis of atrial fibrillation by loop recorder #8 history of CVA 3 with residual left-sided flaccidity #9 history of MRSA and ESBL Plan TSH level was normal.echocardiogram with Doppler study revealed a normal left ventricular systolic function. From cardiology's perspective, we'll follow this patient along with you now on an as-needed basis bases only, please don't hesitate to call with any questions. Continue anticoagulation with Eliquis. DNP note has been reviewed, I agree with a documented findings and plan of care. Patient was seen and examined.
--- NOTE | 2019-10-11 12:51 | P.GSCN ---
History of Present Illness Consult date: 10/11/19 History of present illness: This is a 64-year-old female whom we're asked to see with regard to kidney stones flank pain and hydronephrosis. Patient is known to for this problem. He saw the patient a couple months ago in the office. She was found to have a 1 cm calculus and a dilated renal pelvis as well as a 5 mm left posterior wall stone. I did a Frohse's probably is due to UPJ obstruction. At the time he saw the patient and was decided not to do any surgical treatment due to the multiple comorbidities with the patient, her obesity COPD history of stroke and cardiac disease. He's back in the hospital with fever. Her urinalysis was clear. She had an ultrasound that was read as normal on the left side with some atrophy of the kidney. Patient is interviewed at the bedside with her daughter. She is having notable left-sided pain but it appears to be more over the SI joint radiating into her leg. I reviewed her ultrasound and compared to the computed tomography scan from July appears quite similar. There is a slightly dilated renal pelvis 2 stones in the calyceal system. No significant stone obstruction in the ureter. Review of Systems - Constitutional Reports chronic pain, Reports fever - Genitourinary Genitourinary: Reports as per HPI - Musculoskeletal Reports low back pain Past Medical History Past Medical History: CVA/TIA, Diabetes Mellitus, Hypertension Additional Past Medical History / Comment(s): cva x3- lt sided weakness, pt states she is unable to walk and is bedbound History of Any Multi-Drug Resistant Organisms: ESBL, MRSA Year Discovered:: 07/06/19 MRSA & ESBL-E.coli MDRO Source:: Urine-MRSA & ESBL Past Surgical History: Tubal Ligation Additional Past Surgical History / Comment(s): CAROTID ENDART TO CLEAN OUT NECK ARTERY LEFT; quality assurance monitor chassis chip placed Past Anesthesia/Blood Transfusion Reactions: No Reported Reaction Past Psychological History: Depression Smoking Status: Former smoker Past Alcohol Use History: None Reported Past Drug Use History: None Reported - Past Family History Brother(s) Family Medical History: No Reported History Sister(s) Family Medical History: Diabetes Mellitus Additional Family Medical History / Comment(s): RENAL FAILURE, ABCESSES Medications and Allergies Home Medications Medication Instructions Recorded Confirmed Type metFORMIN HCL [Glucophage] 500 mg PO AC-BID 08/22/16 01/01/20 History amLODIPine [Norvasc] 5 mg PO DAILY #30 tab 06/03/16 10/09/19 Rx cloNIDine HCL [Catapres] 0.2 mg PO BID #60 tab 06/03/16 10/09/19 Rx Atorvastatin [Lipitor] 80 mg PO HS 03/22/19 10/09/19 History Losartan Potassium 100 mg PO DAILY 03/22/19 10/09/19 History Pantoprazole [Protonix] 40 mg PO DAILY 03/22/19 10/09/19 History Citalopram Hydrobromide [CeleXA] 40 mg PO HS 07/06/19 10/09/19 History Apixaban [Eliquis] 5 mg PO BID 10/09/19 10/09/19 History Metoprolol Tartrate [Lopressor] 25 mg PO DAILY 10/09/19 10/09/19 History Allergies Allergy/AdvReac Type Severity Reaction Status Date / Time No Known Allergies Allergy Verified 10/09/19 21:08 Surgical - Exam Vital Signs Temp Pulse Resp BP Pulse Ox 99.5 F 125 H 24 185/104 90 L 10/09/19 15:44 10/09/19 15:44 10/09/19 15:44 10/09/19 15:44 10/09/19 15:44 - General obese - Eyes PERRL - ENT no hearing loss - Neck trachea midline - Respiratory normal expansion, normal respiratory effort - Cardiovascular Rhythm: regular - Abdomen Abdomen: soft, non tender - Neurologic The patient has a left-sided stroke. She cannot move her left side. She has no feeling on the left side. - Psychiatric oriented to time, oriented to person, oriented to place, speech is normal, memory intact Results - Labs 10/11/19 07:31 10/11/19 07:31 Abnormal Lab Results - Last 24 Hours (Table) 10/10/19 10/10/19 10/11/19 Range/Units 17:04 20:33 06:22 WBC (3.8-10.6) k/uL Hgb (11.4-16.0) gm/dL MCHC (31.0-37.0) g/dL Neutrophils # (1.3-7.7) k/uL Lymphocytes # (1.0-4.8) k/uL Sodium (137-145) mmol/L Carbon Dioxide (22-30) mmol/L BUN (7-17) mg/dL Creatinine (0.52-1.04) mg/dL Glucose (74-99) mg/dL POC Glucose (mg/dL) 228 H 203 H 182 H (75-99) mg/dL 10/11/19 10/11/19 Range/Units 07:31 07:31 WBC 11.7 H (3.8-10.6) k/uL Hgb 10.4 L (11.4-16.0) gm/dL MCHC 30.6 L (31.0-37.0) g/dL Neutrophils # 10.1 H (1.3-7.7) k/uL Lymphocytes # 0.9 L (1.0-4.8) k/uL Sodium 131 L (137-145) mmol/L Carbon Dioxide 20 L (22-30) mmol/L BUN 25 H (7-17) mg/dL Creatinine 1.35 H (0.52-1.04) mg/dL Glucose 173 H (74-99) mg/dL POC Glucose (mg/dL) (75-99) mg/dL Microbiology - Last 24 Hours (Table) 10/09/19 22:49 Blood Culture - Preliminary Blood No Growth after 24 hours 10/09/19 16:14 Blood Culture - Preliminary Blood No Growth after 24 hours Diabetes panel 10/11/19 Range/Units 07:31 Sodium 131 L (137-145) mmol/L Potassium 4.9 (3.5-5.1) mmol/L Chloride 100 (98-107) mmol/L Carbon Dioxide 20 L (22-30) mmol/L BUN 25 H (7-17) mg/dL Creatinine 1.35 H (0.52-1.04) mg/dL Glucose 173 H (74-99) mg/dL Calcium 9.3 (8.4-10.2) mg/dL Calcium panel 10/11/19 Range/Units 07:31 Calcium 9.3 (8.4-10.2) mg/dL Pituitary panel 10/11/19 Range/Units 07:31 Sodium 131 L (137-145) mmol/L Potassium 4.9 (3.5-5.1) mmol/L Chloride 100 (98-107) mmol/L Carbon Dioxide 20 L (22-30) mmol/L BUN 25 H (7-17) mg/dL Creatinine 1.35 H (0.52-1.04) mg/dL Glucose 173 H (74-99) mg/dL Calcium 9.3 (8.4-10.2) mg/dL Adrenal panel 10/11/19 Range/Units 07:31 Sodium 131 L (137-145) mmol/L Potassium 4.9 (3.5-5.1) mmol/L Chloride 100 (98-107) mmol/L Carbon Dioxide 20 L (22-30) mmol/L BUN 25 H (7-17) mg/dL Creatinine 1.35 H (0.52-1.04) mg/dL Glucose 173 H (74-99) mg/dL Calcium 9.3 (8.4-10.2) mg/dL - Imaging CT scan - abdomen: report reviewed, image reviewed CT scan - pelvis: report reviewed, image reviewed US - kidney/bladder: report reviewed, image reviewed Assessment and Plan Assessment: Impression: Kidney stones left side. Hydronephrosis left side probably secondary to chronic UPJ obstruction. Left-sided back pain probably musculoskeletal. Fever of indeterminate etiology. Multiple medical comorbidities. Recommendations: It sounds with closer attention to the history that her pain is more over her SI joint radiating to her leg rather than kidney. Comparing the computed tomography scan with the ultrasound they do not appear much different. She appears to have a UPJ obstruction which is chronic and 2 renal stones. The patient can have flank pain due to the stone but is probably not something that would require morphine. Whether to proceed with a surgical approach to the stones would be dependent on since of the pain and whether anything else was identified to be the cause of her pain. Obviously surgical procedure in this patient with multiple health issues, stroke morbid obesity would be challenging both from a surgical and anesthetic standpoint. I will discuss this case with Dr.Rahbar Contreras with Patient: Greater than 30
[2019-10-11 13:07] LABS: Glucose,Whole Blood 191 mg/dL (75-99)
--- NOTE | 2019-10-11 13:48 | P.PN ---
Subjective Progress Note Date: 10/11/19 Principal diagnosis: Atrial fibrillation with rapid ventricular response The patient is seen today 10/11/2019 in follow-up on the selective care unit. She is currently resting in bed. Awake and alert. No acute distress. Maintaining O2 saturations in the mid 90s on 2 L/m per nasal cannula. She was febrile this morning at 102.7. White count 11.7. Hemoglobin 10.4. Creatinine 1.35. Blood culture reveals no growth to date. She is continued on bronchodilators along with azithromycin and ceftriaxone. Her heart rate is better controlled and regular. Objective - Vital Signs Vital signs: Vital Signs Temp 102.7 F H 10/11/19 09:30 Pulse 68 10/11/19 11:35 Resp 18 10/11/19 09:30 BP 149/62 10/11/19 09:30 Pulse Ox 96 10/11/19 09:30 Intake & Output 10/10/19 10/11/19 10/11/19 18:59 06:59 18:59 Intake Total 816.344 Balance 816.344 Weight 136.5 kg Intake: Intake, IV Titration 616.344 Amount Diltiazem 125 mg In 27.583 Sodium Chloride 0.9% 100 ml @ 10 MG/HR 10 mls/hr IV .[id number] [facility] Rx#: [id number] Heparin Sod,Pork in 0.45% 88.761 NaCl 25,000 unit In 0.45 % NaCl 1 250ml.bag @ 8.8 UNITS/KG/HR 9.979 mls/hr IV .Q24H [facility] Rx#: [id number] Magnesium Sulfate-D5w Pmx 500 1 gm In Dextrose/Water 1 100ml.bag @ 100 mls/hr IVPB Q1H [facility] Rx#: [id number] Oral 200 Other: Voiding Method Indwelling Catheter Indwelling Catheter - Exam GENERAL EXAM: Alert, obese comfortable in no apparent distress. On 2 L nasal cannula HEAD: Normocephalic. EYES: Normal reaction of pupils, equal size. NOSE: Clear with pink turbinates. THROAT: No erythema or exudates. NECK: No masses, no JVD. CHEST: No chest wall deformity. LUNGS: Equal air entry with few scattered rhonchi. CVS: S1 and S2 normal with no audible murmur, regular rhythm. ABDOMEN: No hepatosplenomegaly, normal bowel sounds, no guarding or rigidity. SPINE: No scoliosis or deformity SKIN: No rashes CENTRAL NERVOUS SYSTEM: No focal deficits, tone is normal in all 4 extremities. EXTREMITIES: There is no peripheral edema. No clubbing, no cyanosis. Peripheral pulses are intact. - Labs CBC & Chem 7: 10/11/19 07:31 10/11/19 07:31 Labs: Abnormal Lab Results - Last 24 Hours (Table) 10/10/19 10/10/19 10/11/19 Range/Units 17:04 20:33 06:22 WBC (3.8-10.6) k/uL Hgb (11.4-16.0) gm/dL MCHC (31.0-37.0) g/dL Neutrophils # (1.3-7.7) k/uL Lymphocytes # (1.0-4.8) k/uL Sodium (137-145) mmol/L Carbon Dioxide (22-30) mmol/L BUN (7-17) mg/dL Creatinine (0.52-1.04) mg/dL Glucose (74-99) mg/dL POC Glucose (mg/dL) 228 H 203 H 182 H (75-99) mg/dL 10/11/19 10/11/19 10/11/19 Range/Units 07:31 07:31 13:05 WBC 11.7 H (3.8-10.6) k/uL Hgb 10.4 L (11.4-16.0) gm/dL MCHC 30.6 L (31.0-37.0) g/dL Neutrophils # 10.1 H (1.3-7.7) k/uL Lymphocytes # 0.9 L (1.0-4.8) k/uL Sodium 131 L (137-145) mmol/L Carbon Dioxide 20 L (22-30) mmol/L BUN 25 H (7-17) mg/dL Creatinine 1.35 H (0.52-1.04) mg/dL Glucose 173 H (74-99) mg/dL POC Glucose (mg/dL) 191 H (75-99) mg/dL Microbiology - Last 24 Hours (Table) 10/09/19 22:49 Blood Culture - Preliminary Blood No Growth after 24 hours 10/09/19 16:14 Blood Culture - Preliminary Blood No Growth after 24 hours Assessment and Plan Assessment: 1 Atrial fibrillation with rapid ventricular response, currently in sinus rhythm 2 Profound weakness secondary to dehydration from nausea and vomiting, improved 3 Purulent tracheobronchitis versus bronchopneumonia and is currently on antibiotics 4 History of CVA 5 Diabetes mellitus 6 Hyperlipidemia 7 Hypertension 8 History of MRSA and ESBL 9 Previous carotid endarterectomy 10 Obesity. Plan: The patient was seen and evaluated by Dr. Coto. She is improved today compared to yesterday. We'll continue the current treatment plan. We'll continue to follow. I, the cosigning physician, performed a history & physical examination of the patient. Lungs sounds with few scattered rhonchi. Maintaining good O2 saturati ons in the 90s on 2 L/m per nasal cannula. I discussed the assessment and plan of care with my nurse practitioner, Annette Dugan. I attest to the above note as dictated by her.
--- NOTE | 2019-10-11 16:24 | P.PN ---
Subjective Progress Note Date: 10/11/19 Principal diagnosis: This is a 64-year-old female who was recently admitted with shortness of breath as well as acute bilateral pneumonia and is being closely monitored. Multiple m edical consultations are following. Patient is sitting up and has recently just received some pain medications and feels better but family states that she continues to have left-sided back pain in the lower lumbar sacral area. Per nursing staff, patient continues to have some generalized edema and is currently on 2 L of oxygen via nasal cannula. She does not normally wear oxygen at home. Creatinine today was elevated at 1.35. Sodium is 131. Repeat magnesium is 2.3. Review of Systems: Cardiovascular: No reports of chest pain or palpitations Respiratory: No reports of shortness of breath. Reports occasional cough : No reports of dysuria or retention GI: No reports of nausea, vomiting, or diarrhea Musculoskeletal: Reports left lower back pain Active Medications Acetaminophen (Tylenol Tab) 1,000 mg PO Q4H PRN PRN Reason: Mild Pain Last Admin: 10/11/19 09:45 Dose: 1,000 mg Documented by: Hydrocodone Bitart/Acetaminophen ([place] 5-325) 1 each PO Q6HR PRN PRN Reason: Pain Last Admin: 10/11/19 11:54 Dose: 1 each Documented by: Albuterol/Ipratropium (Duoneb 0.5 Mg-3 Mg/3 Ml Soln) 3 ml INHALATION RT-QID [facility] Last Admin: 10/11/19 11:23 Dose: 3 ml Documented by: Alprazolam (Xanax) 0.25 mg PO TID PRN PRN Reason: Anxiety Amlodipine Besylate (Norvasc) 5 mg PO DAILY [facility] Last Admin: 10/11/19 09:24 Dose: 5 mg Documented by: Apixaban (Eliquis) 5 mg PO BID [facility] Last Admin: 10/11/19 09:24 Dose: 5 mg Documented by: Atorvastatin Calcium (Lipitor) 80 mg PO [facility] Last Admin: 10/10/19 20:21 Dose: 80 mg Documented by: Azithromycin (Zithromax) 500 mg PO [facility] Last Admin: 10/10/19 20:21 Dose: 500 mg Documented by: Citalopram Hydrobromide (Celexa) 40 mg PO [facility] Last Admin: 10/10/19 20:21 Dose: 40 mg Documented by: Clonidine (Catapres) 0.2 mg PO BID [facility] Last Admin: 10/11/19 09:24 Dose: 0.2 mg Documented by: Clopidogrel Bisulfate (Plavix) 75 mg PO DAILY [facility] Last Admin: 10/11/19 09:24 Dose: 75 mg Documented by: Ceftriaxone Sodium 1 gm/ (Sodium Chloride) 50 mls @ 100 mls/hr IVPB Q24HR [facility] Last Admin: 10/11/19 09:24 Dose: 100 mls/hr Documented by: Insulin Aspart (Novolog) 0 unit SQ ACHS [facility]; Protocol Last Admin: 10/11/19 13:49 Dose: 2 unit Documented by: Losartan Potassium (Cozaar) 100 mg PO DAILY [facility] Last Admin: 10/11/19 09:24 Dose: 100 mg Documented by: Magnesium Oxide (Mag-Ox) 400 mg PO TID [facility] Last Admin: 10/11/19 15:56 Dose: 400 mg Documented by: Metformin HCl (Glucophage) 500 mg PO AC-BID [facility] Last Admin: 10/11/19 06:49 Dose: 500 mg Documented by: Metoprolol Tartrate (Lopressor) 25 mg PO BID [facility] Last Admin: 10/11/19 09:24 Dose: 25 mg Documented by: Miscellaneous Information (Pneumonia Protocol Utilized) 1 each PO ONCE PRN PRN Reason: Per Protocol Miscellaneous Information (Magnesium Per Protocol) 1 each MISCELLANE DAILY PRN; Protocol PRN Reason: Per Protocol Miscellaneous Information (Potassium Per Protocol) 1 each MISCELLANE DAILY PRN; Protocol PRN Reason: Per Protocol Morphine Sulfate (Morphine Sulfate (Inj)) 4 mg IVP Q6HR PRN PRN Reason: Pain Last Admin: 10/11/19 16:00 Dose: 4 mg Documented by: Pantoprazole Sodium (Protonix) 40 mg PO HS [facility] Last Admin: 10/10/19 20:21 Dose: 40 mg Documented by: Objective - Vital Signs Vital signs: Vital Signs Temp 99.2 F 10/11/19 12:00 Pulse 53 L 10/11/19 12:00 Resp 18 10/11/19 12:00 BP 101/53 10/11/19 12:00 Pulse Ox 97 10/11/19 12:00 Intake & Output 10/10/19 10/11/19 10/11/19 18:59 06:59 18:59 Intake Total 816.344 Balance 816.344 Weight 136.5 kg Intake: Intake, IV Titration 616.344 Amount Diltiazem 125 mg In 27.583 Sodium Chloride 0.9% 100 ml @ 10 MG/HR 10 mls/hr IV .[id number] [facility] Rx#: [id number] Heparin Sod,Pork in 0.45% 88.761 NaCl 25,000 unit In 0.45 % NaCl 1 250ml.bag @ 8.8 UNITS/KG/HR 9.979 mls/hr IV .Q24H [facility] Rx#: [id number] Magnesium Sulfate-D5w Pmx 500 1 gm In Dextrose/Water 1 100ml.bag @ 100 mls/hr IVPB Q1H [facility] Rx#: [id number] Oral 200 Other: Voiding Method Indwelling Catheter Indwelling Catheter Indwelling Catheter - Exam Gen: This is a 64-year-old female sitting up in bed and appears to be in no acute distress. Temp is 99.2F, pulse is 53, respirations are 18, blood pressure is 101/53, oxygen saturation is 97% on 2 L via nasal cannula. HEENT: Head is atraumatic, normocephalic. Pupils equal, round. Sclerae is anicteric. NECK: Supple. No JVD. No lymphadenopathy. No thyromegaly. LUNGS: Diminished breath sounds at the bases with a few scattered crackles and rhonchi noted. No intercostal retractions. HEART: S1, S2 are muffled. murmur noted. ABDOMEN: Soft. Bowel sounds are present. No masses. No tenderness. EXTREMITIES: No pedal edema. No calf tenderness. Mild lower extremity edema noted on the left more so than the right NEUROLOGICAL: Patient is awake, alert and oriented x3. Cranial nerves 2 through 12 are grossly intact. - Labs CBC & Chem 7: 10/11/19 07:31 10/11/19 07:31 Labs: Abnormal Lab Results - Last 24 Hours (Table) 10/10/19 10/10/19 10/11/19 Range/Units 17:04 20:33 06:22 WBC (3.8-10.6) k/uL Hgb (11.4-16.0) gm/dL MCHC (31.0-37.0) g/dL Neutrophils # (1.3-7.7) k/uL Lymphocytes # (1.0-4.8) k/uL Sodium (137-145) mmol/L Carbon Dioxide (22-30) mmol/L BUN (7-17) mg/dL Creatinine (0.52-1.04) mg/dL Glucose (74-99) mg/dL POC Glucose (mg/dL) 228 H 203 H 182 H (75-99) mg/dL 10/11/19 10/11/19 10/11/19 Range/Units 07:31 07:31 13:05 WBC 11.7 H (3.8-10.6) k/uL Hgb 10.4 L (11.4-16.0) gm/dL MCHC 30.6 L (31.0-37.0) g/dL Neutrophils # 10.1 H (1.3-7.7) k/uL Lymphocytes # 0.9 L (1.0-4.8) k/uL Sodium 131 L (137-145) mmol/L Carbon Dioxide 20 L (22-30) mmol/L BUN 25 H (7-17) mg/dL Creatinine 1.35 H (0.52-1.04) mg/dL Glucose 173 H (74-99) mg/dL POC Glucose (mg/dL) 191 H (75-99) mg/dL Microbiology - Last 24 Hours (Table) 10/09/19 22:49 Blood Culture - Preliminary Blood No Growth after 24 hours 10/09/19 16:14 Blood Culture - Preliminary Blood No Growth after 24 hours Assessment and Plan Assessment: Acute bilateral pneumonia right more than the left, possibly gram-negative with possible early sepsis, present on admission Diabetes mellitus type 2 with hyperglycemia. No evidence of diabetic ketoacidosis Severe hypomagnesemia Presumptive flu Atrial fibrillation with rapid ventricular rate Paroxysmal atrial fibrillation history Hyponatremia Increased WBC old left-sided stroke with weakness and gait dysfunction Hypertension History of ESBL/MRSA History of tubal ligation History of Carotid endarterectomy left side Remote history of nicotine dependence History of depression Obesity with a body mass index of 44.7 Recommendations and discussion: Recommend to continue current medications, management, and symptomatic treatment. Patient is being maintained on bronchodilators, antivirals, and IV antibiotics and will continue at this time. Will repeat a.m. labs. Will continue to monitor closely. A chest x-ray and lower back x-ray was ordered as the patient continues to have left-sided back pain and family is concerned. Multiple medical consultations are following. Discussed with nursing staff about encouraging oral intake. Further recommendations to follow. Prognosis is guarded.
[2019-10-11 16:38] LABS: Glucose,Whole Blood 210 mg/dL (75-99)
--- NOTE | 2019-10-11 17:33 | XR ---
EXAMINATION TYPE: XR chest 2V DATE OF EXAM: 10/11/2019 COMPARISON: 10/10/2019 INDICATION: Shortness of breath TECHNIQUE: Frontal and lateral views of the chest are obtained. FINDINGS: The heart size is enlarged. The pulmonary vasculature is slightly prominent. There are increased lung markings at the bilateral lung bases. Correlate for atelectasis and pneumoni a. Findings are slightly worsened from comparison. IMPRESSION: 1. Cardiomegaly. 2. Bibasilar infiltrates. Correlate for atelectasis and pneumonia. Findings are worsening.
--- NOTE | 2019-10-11 17:33 | XR ---
EXAMINATION TYPE: XR lumbar spine 2 or 3V DATE OF EXAM: 10/11/2019 COMPARISON: None HISTORY: Left lower back pain TECHNIQUE: 4 view lumbar spine FINDINGS: There 5 lumbar-type vertebral bodies. Pedicles are intact. Some disc space narrowing is pre sent. Lateral view is very limited due to body habitus. IMPRESSION: 1. Suggestion of some posterior disc space narrowing. 2. Limited exam
[2019-10-11 21:22] LABS: Glucose,Whole Blood 162 mg/dL (75-99)
[2019-10-11] MEDS ORDERED: FUROSEMIDE 10 MG/ML 4 ML VIAL IV STA (21:41)
[2019-10-11] MEDS: PANTOPRAZOLE 40 MG TABLET PO SCH (22:33)
[2019-10-11] MEDS: CITALOPRAM HYDROBROMIDE 20 MG TAB PO SCH (22:33)
[2019-10-11] MEDS: AZITHROMYCIN 500 MG TAB PO SCH (22:34)
[2019-10-11] MEDS: ATORVASTATIN 80 MG TAB PO SCH (22:34)
[2019-10-12 06:04] LABS: Glucose,Whole Blood 139 mg/dL (75-99)
[2019-10-12] MEDS: INSULIN ASPART (NovoLOG) 100 UNIT/ML VIAL SQ SCH ×4 (06:12→20:52)
[2019-10-12] MEDS: metFORMIN 500 MG TAB PO SCH ×3 (06:26→17:35)
[2019-10-12 07:22] LABS: Basophils # (A) 0.1 k/uL (0-0.2); Basophils % (A) 1 %; Eosinophils # (A) 0.1 k/uL (0-0.7); Eosinophils % (A) 1 %; HCT 27.7 % (34.0-46.0); Hypochromasia Moderate; Lymphocytes # (A) 1.1 k/uL (1.0-4.8); Lymphocytes % (A) 13 %; MCH 26.3 pg (25.0-35.0); MCHC 31.8 g/dL (31.0-37.0); MCV 82.7 fL (80.0-100.0); Mean Platelet Volume 8.2; Monocytes # (A) 0.4 k/uL (0-1.0); Monocytes % (A) 4 %; Neutrophils # (A) 6.8 k/uL (1.3-7.7); Neutrophils % (A) 80 %; Platelet Count 228 k/uL (150-450); RBC 3.35 m/uL (3.80-5.40); RDW 14.1 % (11.5-15.5); WBC 8.5 k/uL (3.8-10.6)
[2019-10-12 07:23] LABS: Calcium 8.7 mg/dL (8.4-10.2); Potassium 4.5 mmol/L (3.5-5.1)
[2019-10-12 07:34] LABS: HGB 8.8 gm/dL (11.4-16.0)
[2019-10-12] MEDS: METOPROLOL TARTRATE 25 MG TAB PO SCH ×2 (09:05→21:54)
[2019-10-12] MEDS: cloNIDine HCL 0.2 MG TAB PO SCH ×2 (09:05→21:54)
[2019-10-12] MEDS: LOSARTAN 50 MG TAB PO SCH (09:05)
[2019-10-12] MEDS: APIXABAN 5 MG TAB PO SCH ×2 (09:06→21:54)
[2019-10-12] MEDS: ACETAMINOPHEN TAB 500 MG TAB PO PRN ×2 (09:07→22:10)
[2019-10-12] MEDS: amLODIPine 5 MG TAB PO SCH (09:07)
[2019-10-12] MEDS: MAGNESIUM OXIDE 400 MG TAB PO SCH ×3 (09:07→21:53)
[2019-10-12] MEDS: CLOPIDOGREL 75 MG TAB PO SCH (09:08)
[2019-10-12] MEDS: IPRATROPIUM-ALBUTEROL 3 ML NEB INHALATION SCH ×5 (09:25→21:52)
[2019-10-12] MEDS ORDERED: ONDANSETRON 4 MG/2 ML VIAL IVP PRN (09:25)
[2019-10-12] MEDS: OSELTAMIVIR 75 MG CAP PO SCH (10:12)
[2019-10-12 12:01] LABS: Glucose,Whole Blood 179 mg/dL (75-99)
[2019-10-12] MEDS ORDERED: NALOXONE 0.4 MG/ML 1 ML VIAL IV STA (13:04)
--- NOTE | 2019-10-12 13:08 | CT ---
EXAMINATION TYPE: CT brain wo con DATE OF EXAM: 10/12/2019 COMPARISON: 06/02/2016 HISTORY: 64-year-old female slurred speech, altered mental status, confusion. TECHNIQUE: Examination was done in axial plane without intravenous contrast. Coronal and sagittal r econstructions performed. CT DLP: 1201.4 mGycm Automated exposure control for dose reduction was used. FINDINGS: There is no evidence of acute intracranial hemorrhage, acute ischemic changes, mass, mass-effect, or extra-axial fluid collection. There is no effacement of cerebral sulci or basal subarachnoid cister ns. There is no midline shift. Maloney-white matter distinction is preserved. Trace mucosal thickening floor of the left maxillary sinus. Mastoid air cells are pneumatized. Orbits and globes are intact. Similar dense atherosclerotic calcifications before segment left vertebral artery. Some similar atele ctatic calcifications within the M2 segment right vertebral artery. Atherosclerotic calcifications within the carotid siphons. Encephalomalacia at the right frontoparietal junction with associated volume loss and asymmetric enla rgement of the right lateral ventricle. Additional cortical encephalomalacia right occipital junction. Both of these areas appear to have matured from 06/02/2016. Mild to moderate confluent white matter hypodensities in both cerebral hemispheres is progressed from 2016. IMPRESSION: 1. Sizable area of encephalomalacia related to prior infarct at the right frontoparietal junction and smaller area at the right parieto-occipital junction. Findings matured from 2016. 2. Mild to moderate changes of chronic small vessel ischemic disease, progressed from 2016. 3. No acute intracranial abnormality seen. If findings persist, follow-up CT or MRI.
[2019-10-12 13:34] LABS: Basophils % (A) 0 %; Eosinophils # (A) 0.1 k/uL (0-0.7); Eosinophils % (A) 1 %; HCT 28.3 % (34.0-46.0); Hypochromasia Slight; Lymphocytes # (A) 1.1 k/uL (1.0-4.8); Lymphocytes % (A) 11 %; MCH 25.9 pg (25.0-35.0); MCHC 31.7 g/dL (31.0-37.0); MCV 81.7 fL (80.0-100.0); Mean Platelet Volume 8.5; Monocytes # (A) 0.5 k/uL (0-1.0); Monocytes % (A) 5 %; Neutrophils # (A) 8.1 k/uL (1.3-7.7); Neutrophils % (A) 82 %; Platelet Count 230 k/uL (150-450); RBC 3.46 m/uL (3.80-5.40); RDW 14.2 % (11.5-15.5)
[2019-10-12 13:47] LABS: Calcium 8.8 mg/dL (8.4-10.2); Potassium 4.6 mmol/L (3.5-5.1)
[2019-10-12] MEDS: PIPERACILLIN-TAZOBACTAM 3.375 GM in SODIUM CHLORIDE 0.9% 100 ML IVPB SCH (16:30)
[2019-10-12 17:07] LABS: Glucose,Whole Blood 184 mg/dL (75-99)
--- NOTE | 2019-10-12 18:30 | PN ---
PROGRESS NOTE DATE OF SERVICE: 10/12/2019 This 64-year-old woman who was admitted with bibasilar pneumonia with possible sepsis, on broad-spectrum IV antibiotics. The patient took a turn for the worse yesterday. The patient complaining of severe back pain yesterday, last night which the patient apparently had some morphine, but subsequently patient apparently responsive and was found to be dysarthric and confused. A stroke code was called this morning and the interventional stroke was consulted and at this time the patient is to be transferred to [facility]. I talked to Dr. Angulo who is the admitting redeye gunner over the phone. He is willing to transfer the patient today. The patient being closely monitored. Repeat CT scan did not show any acute abnormality. Old stroke was redemonstrated. PAST MEDICAL HISTORY: Past medical reviewed. REVIEW OF SYMPTOMS: Review of systems could not be taken, the patient is confused at this time. CURRENT MEDICATIONS: Reviewed and include: 1. Tylenol p.r.n. 2. [place] 5 mg q.6h. 3. DuoNeb q.i.d. and p.r.n. 4. Xanax 0.5 t.i.d. 5. Norvasc 5 mg daily. 6. Eliquis 5 mg p.o. b.i.d. 7. Lipitor 80 mg q.h.s. 8. Zithromax 500 mg q.h.s. 9. Rocephin 1 g daily. 10.Celexa 40 mg q.h.s. 11.Catapres 0.2 b.i.d. 12.Plavix 75 mg p.o. daily. 13.NovoLog 14.Cozaar 100 mg daily. 15.Magnesium oxide 400 mg t.i.d. 16.Glucophage 500 mg b.i.d. 17.Lopressor 25 mg b.i.d. 18.Replacement protocols. 19.Protonix. PHYSICAL EXAM: Patient is alert and oriented times three. Pulse 50, blood pressure 118/64. Respirations 20, temperature 98.4, pulse ox 99% on 2 L. HEENT: Conjunctivae normal. Oral mucosa moist. NECK is no jugular venous distention. No carotid bruit. No lymph node enlargement. Cardiovascular systems: S1, S2 muffled. Respiration: Breath sounds diminished in the bases. Bilateral scattered rhonchi and crackles. ABDOMEN: Soft, nontender. LEGS are no edema. No swelling. Nervous system unchanged. The patient is confused and significant weakness of the left side of the body. LABORATORY DATA: Labs are WBC 10, hemoglobin 9, sodium 130. ASSESSMENT: 1. Acute bilateral pneumonia, right more than the left, possibly gram-negative, possibly with probably early sepsis, present on admission. 2. Change in mental status possible acute stroke or acute transient ischemic attack. 3. Diabetes mellitus type 2 with hyperglycemia. No evidence of diabetic ketosis. 4. Severe hypomagnesemia. 5. Presumptive flu. 6. Atrial fibrillation with rapid ventricular rate. 7. Paroxysmal atrial fibrillation history. 8. Hyponatremia. 9. Increased WBC. 10.Old left-sided stroke with weakness and gait dysfunction. 11.Hypertension. 12.History of ESBL MRSA. 13.History of tubal ligation. 14.History of carotid endarterectomy, left side. 15.Remote history of nicotine dependence. 16.History of depression. 17.Obesity with body mass index of 44.7. RECOMMENDATIONS AND DISCUSSION: Recommend to continue current medications, continue with monitoring, management and symptomatic treatment. Otherwise, at this time, I would recommend to continue with current medication, continue symptomatic treatment. Otherwise, continue the broad- spectrum IV antibiotics. I would change antibiotics to Zosyn at this time. Otherwise, continue to monitor and transfer to [facility] for further evaluation of change in mental status and stroke also. One dose of Narcan is also given. See orders. The prognosis guarded. Further recommendations to follow. MMODL / IJN: [id number] / MTDD
[2019-10-12 20:35] LABS: Glucose,Whole Blood 170 mg/dL (75-99)
[2019-10-12] MEDS: ATORVASTATIN 80 MG TAB PO SCH (21:53)
[2019-10-12] MEDS: CITALOPRAM HYDROBROMIDE 20 MG TAB PO SCH (21:54)
[2019-10-12] MEDS: PANTOPRAZOLE 40 MG TABLET PO SCH (21:54)
[2019-10-12] MEDS: AZITHROMYCIN 500 MG TAB PO SCH (21:54)
[2019-10-13] MEDS: PIPERACILLIN-TAZOBACTAM 3.375 GM in SODIUM CHLORIDE 0.9% 100 ML IVPB SCH ×3 (00:19→16:43)
[2019-10-13 06:07] LABS: Glucose,Whole Blood 135 mg/dL (75-99)
[2019-10-13] MEDS: metFORMIN 500 MG TAB PO SCH ×2 (06:38→17:43)
[2019-10-13] MEDS: INSULIN ASPART (NovoLOG) 100 UNIT/ML VIAL SQ SCH ×4 (06:38→20:33)
[2019-10-13] MEDS: IPRATROPIUM-ALBUTEROL 3 ML NEB INHALATION SCH ×4 (08:09→19:55)
[2019-10-13] MEDS: MAGNESIUM OXIDE 400 MG TAB PO SCH ×3 (09:55→20:43)
[2019-10-13] MEDS: amLODIPine 5 MG TAB PO SCH (09:55)
[2019-10-13] MEDS: cloNIDine HCL 0.2 MG TAB PO SCH ×2 (09:55→20:44)
[2019-10-13] MEDS: LOSARTAN 50 MG TAB PO SCH (09:55)
[2019-10-13] MEDS: METOPROLOL TARTRATE 25 MG TAB PO SCH ×2 (09:56→20:44)
[2019-10-13] MEDS: CLOPIDOGREL 75 MG TAB PO SCH (09:56)
[2019-10-13] MEDS: APIXABAN 5 MG TAB PO SCH ×2 (09:56→20:44)
[2019-10-13] MEDS: ACETAMINOPHEN TAB 500 MG TAB PO PRN (10:47)
[2019-10-13 12:37] LABS: Glucose,Whole Blood 128 mg/dL (75-99)
--- NOTE | 2019-10-13 12:41 | P.PN ---
Subjective Progress Note Date: 10/13/19 The patient is continuing with back pain on the left side. It is down to 4 out of 10. The patient's medical problems including A. fib and pneumonia continue to be treated. She does have the left-sided renal stone. Previously it was decided to not treat this due to her multiple medical illnesses however this may need to be readdressed if her pain continues. Objective - Vital Signs Vital signs: Vital Signs Temp 97.6 F 10/13/19 08:40 Pulse 56 L 10/13/19 11:39 Resp 20 10/13/19 08:40 BP 147/65 10/13/19 08:40 Pulse Ox 98 10/13/19 08:40 Intake & Output 10/12/19 10/13/19 10/13/19 18:59 06:59 18:59 Intake Total 300 150 Output Total 850 Balance 300 -700 Weight 112 kg Intake: Intake, IV Titration 150 100 Amount Piperacillin-Tazobactam 3 100 100 .375 gm In Sodium Chloride 0.9% 100 ml @ 25 mls/hr IVPB Q8HR [facility] Rx# :[id number] 1 gm In 50 Sodium Chloride 0.9% 50 ml @ 100 mls/hr IVPB Q24HR [facility] Rx#:[id number] Oral 150 50 Output: Urine 850 Other: Voiding Method Incontinent - Labs CBC & Chem 7: 10/12/19 13:25 10/12/19 13:25 Labs: Abnormal Lab Results - Last 24 Hours (Table) 10/12/19 10/12/19 10/12/19 Range/Units 13:25 13:25 17:06 RBC 3.46 L (3.80-5.40) m/uL Hgb 9.0 L (11.4-16.0) gm/dL Hct 28.3 L (34.0-46.0) % Neutrophils # 8.1 H (1.3-7.7) k/uL Sodium 130 L (137-145) mmol/L Carbon Dioxide 20 L (22-30) mmol/L BUN 37 H (7-17) mg/dL Creatinine 1.52 H (0.52-1.04) mg/dL Glucose 179 H (74-99) mg/dL POC Glucose (mg/dL) 184 H (75-99) mg/dL 10/12/19 10/13/1910/13/20 Range/Units 20:34 06:06 12:34 RBC (3.80-5.40) m/uL Hgb (11.4-16.0) gm/dL Hct (34.0-46.0) % Neutrophils # (1.3-7.7) k/uL Sodium (137-145) mmol/L Carbon Dioxide (22-30) mmol/L BUN (7-17) mg/dL Creatinine (0.52-1.04) mg/dL Glucose (74-99) mg/dL POC Glucose (mg/dL) 170 H 135 H 128 H (75-99) mg/dL Microbiology - Last 24 Hours (Table) 10/11/19 07:31 Blood Culture - Preliminary Blood No Growth after 48 hours 10/12/19 06:49 Blood Culture - Preliminary Blood No Growth after 24 hours 10/09/19 22:49 Blood Culture - Preliminary Blood No Growth after 72 hours 10/09/19 16:14 Blood Culture - Preliminary Blood No Growth after 72 hours
[2019-10-13] MEDS: HYDROcodone/APAP 5-325MG 1 EACH TAB PO PRN (12:47)
--- NOTE | 2019-10-13 15:23 | XR ---
EXAMINATION TYPE: XR lumbar spine 2 or 3V DATE OF EXAM: 10/13/2019 COMPARISON: 10/11/2019 HISTORY: Intractable back pain TECHNIQUE: Three-view lumbar spine FINDINGS: There 5 lumbar-type vertebral bodies. Pedicles are intact. There is loss of disc height L5- S1. Remaining disc heights are preserved. No significant interval changes evident. IMPRESSION: 1. Degenerative disc changes L5-S1.
[2019-10-13 17:33] LABS: Glucose,Whole Blood 129 mg/dL (75-99)
[2019-10-13 20:29] LABS: Glucose,Whole Blood 128 mg/dL (75-99)
[2019-10-13] MEDS: AZITHROMYCIN 500 MG TAB PO SCH (20:43)
[2019-10-13] MEDS: PANTOPRAZOLE 40 MG TABLET PO SCH (20:43)
[2019-10-13] MEDS: ATORVASTATIN 80 MG TAB PO SCH (20:43)
[2019-10-13] MEDS: CITALOPRAM HYDROBROMIDE 20 MG TAB PO SCH (20:44)
--- NOTE | 2019-10-14 00:15 | PN ---
PROGRESS NOTE DATE OF SERVICE: 10/13/2019 This 58-year-old woman initially admitted with bibasilar pneumonia also had possible sepsis, but subsequently patient had some complaints of back pain. Patient received some IV morphine. Subsequently, patient exhibited some change in mental status. Stroke code was called and possible of acute transient ischemic attack or acute stroke was considered. The interventional Neurology was consulted and also talked to aircraft engine technician at [facility] for possible referred to neurologist because of lack of Neurology here this week. However, the family and the patient refused to be transferred and currently being managed over here. They are fully aware of the diagnosis and prognostic implications at this time. Of note, the patient also complaining of back pain of recent onset. I have recommended a lumbar spine x-ray and orthopedic evaluation by Dr. Rothman. 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 The patient being closely monitored at this time. PAST MEDICAL HISTORY: Reviewed. REVIEW OF SYSTEMS: CARDIOVASCULAR SYSTEM: No angina or palpitations. RESPIRATIONS: As mentioned earlier. GASTROINTESTINAL: As mentioned earlier. : No dysuria or retention. CENTRAL NERVOUS SYSTEM: No numbness or weakness. CURRENT MEDICATIONS: Reviewed and include: 1. Tylenol p.r.n. 2. [place] 5 mg q.6h p.r.n. 3. DuoNeb q.i.d. 4. Xanax. 5. Norvasc 5 mg. 6. Eliquis 5 mg b.i.d. 7. Lipitor. 8. Zithromax. 9. Catapres 0.2 b.i.d. 10.Plavix. 11.Cozaar. 12.Magnesium oxide. 13.Lopressor. 14.Zofran. 15.Protonix. 16.P.r.n. medications. 17.Zosyn IV. PHYSICAL EXAMINATION: Patient is alert, oriented x2. Pulse 54, blood pressure 103/44, respiration 18, temperature 97.2, pulse ox 98% on 3 L. HEENT: Conjunctivae normal. NECK: No JVD. CARDIOVASCULAR: S1, S2 muffled. RESPIRATORY: Breath sounds diminished in the bases. Bilateral scattered rhonchi and crackles. ABDOMEN: Soft, nontender. LEGS no edema. No swelling. CENTRAL NERVOUS SYSTEM: No focal deficits. LABS: WBC 10, hemoglobin is 9, sodium 130, potassium 4.2. Creatinine is 1.52. ASSESSMENT: 1. Acute bilateral pneumonia right more than left possibly gram-negative possibly with possible early sepsis present on admission. 2. Change in mental status, possibly acute transient ischemic attack, acute stroke unlikely. 3. Diabetes mellitus type 2, hyperglycemia with no evidence of diabetic ketoacidosis. 4. Severe back pain with possible degenerative joint disease L5-S1. 5. Severe hypomagnesemia. 6. Presumptive flu. 7. Atrial fibrillation with rapid ventricular rate. 8. Paroxysmal atrial fibrillation history. 9. Hyponatremia. 10.Increased WBC. 11.Old left-sided stroke with weakness and gait dysfunction. 12.Hypertension. 13.History of ESBL MRSA. 14.History of tubal ligation. 15.History of carotid endarterectomy, left side. 16.Remote history of nicotine dependence. 17.History of depression. 18.Obesity with body mass index of 44.7. RECOMMENDATIONS AND DISCUSSION: I recommend to continue current medications, management and symptomatic treatment. Continue [place]. X-rays are noted. Otherwise consult Dr. Rothman. Recommend frequent monitoring of the patient closely. Overall prognosis guarded. At this time, as mentioned earlier, the patient and family refused transfer to [facility] for further neurology evaluation and continued monitoring. Neurologist is not available at this time. MMODL / IJN: [id number] /
[2019-10-14] MEDS: PIPERACILLIN-TAZOBACTAM 3.375 GM in SODIUM CHLORIDE 0.9% 100 ML IVPB SCH ×4 (00:47→23:52)
[2019-10-14 06:08] LABS: Glucose,Whole Blood 108 mg/dL (75-99)
[2019-10-14] MEDS: INSULIN ASPART (NovoLOG) 100 UNIT/ML VIAL SQ SCH ×4 (06:15→21:15)
[2019-10-14] MEDS: metFORMIN 500 MG TAB PO SCH ×2 (06:36→17:25)
[2019-10-14] MEDS: IPRATROPIUM-ALBUTEROL 3 ML NEB INHALATION SCH ×4 (07:39→19:18)
--- NOTE | 2019-10-14 08:48 | P.CNOR ---
History of Present Illness - [facility] Consult date: 10/14/19 Requesting physician: Kristi Pino Consult reason: low back pain History of present illness: Patient is very pleasant 64-year-old female who is seen at bedside for further evaluation for acute left-sided low back pain. Patient states her low back pain has only started during this admission. Patient originally presented to the emergency department on 10/09/2019 with fever and productive cough. She's been found to have pneumonia. She is currently treated for pneumonia. Patient was recently diagnosed with atrial fibrillation. She has been started on Eliquis in the outpatient setting. EKG imaging on presentation to the emergency department did show atrial fibrillation with rapid ventricular response. She's been seen and examined by cardiology. She is continuing with Eliquis. Patient also has a significant medical history which includes 3 cardiovascular accidents. She has significant left-sided weakness following these CVAs. She states she ambulates with the assistance of family. She states her left-sided low back pain does not radiate into the lower extremities. Her back pain has had improvement over the past couple days. Nursing is in the room as well. Nursing states patient was able to sit up at the bedside for approximately half hour yesterday. She is being treated for bedsores along the lower lumbar spine and sacrum as well. Patient is currently being seen and examined by urology as well. Patient does have a history of left-sided renal stone and hydronephrosis. They're planning for conservative treatment currently due to patient's other comorbidities. Patient denies any right lower extremity weakness. She denies lower extremity r adiculopathy bilaterally. Recent x-ray imaging does show evidence of L5-S1 significant degenerative disc disease without evidence of vertebral body compression fracture. She denies any recent injuries. Past Medical History Past Medical History: CVA/TIA, Diabetes Mellitus, Hypertension Additional Past Medical History / Comment(s): cva x3- lt sided weakness, pt states she is unable to walk and is bedbound History of Any Multi-Drug Resistant Organisms: ESBL, MRSA Year Discovered:: 07/06/19 MRSA & ESBL-E.coli MDRO Source:: Urine-MRSA & ESBL Past Surgical History: Tubal Ligation Additional Past Surgical History / Comment(s): CAROTID ENDART TO CLEAN OUT NECK ARTERY LEFT; cardiac catheterization technologist chip placed Past Anesthesia/Blood Transfusion Reactions: No Reported Reaction Past Psychological History: Depression Smoking Status: Former smoker Past Alcohol Use History: None Reported Past Drug Use History: None Reported - Past Family History Brother(s) Family Medical History: No Reported History Sister(s) Family Medical History: Diabetes Mellitus Additional Family Medical History / Comment(s): RENAL FAILURE, ABCESSES Medications and Allergies Home Medications Medication Instructions Recorded Confirmed Type metFORMIN HCL [Glucophage] 500 mg PO AC-BID 05/30/16 10/09/19 History amLODIPine [Norvasc] 5 mg PO DAILY #30 tab 06/03/16 10/09/19 Rx cloNIDine HCL [Catapres] 0.2 mg PO BID #60 tab 06/03/16 10/09/19 Rx Atorvastatin [Lipitor] 80 mg PO HS 03/22/19 10/09/19 History Losartan Potassium 100 mg PO DAILY 03/22/19 10/09/19 History Pantoprazole [Protonix] 40 mg PO DAILY 03/22/19 10/09/19 History Citalopram Hydrobromide [CeleXA] 40 mg PO HS 07/06/19 10/09/19 History Apixaban [Eliquis] 5 mg PO BID 10/09/19 10/09/19 History Metoprolol Tartrate [Lopressor] 25 mg PO DAILY 10/09/19 10/09/19 History Allergies Allergy/AdvReac Type Severity Reaction Status Date / Time No Known Allergies Allergy Verified 10/09/19 21:08 Physical Examination Physical exam: Patient is awake, alert, and oriented 3 Vital signs stable Good chest excursion with deep inspiration and expiration Examination of lumbar spine reveals skin is intact with no abrasions, lacerations, or bruises; no erythema, purulence or signs of infection Multiple bedsores along the midline of the lower lumbar spine and sacrum currently covered with multiple dressings Dorsiflexion, plantarflexion, and extensor hallucis longus positive sustained on the right Significant difficulty with any active range of motion of the left upper extremity and left lower extremity just chronic following multiple CVAs Right lower extremity strength is positive sustained throughout range of motion No signs or symptoms of DVT; no calf pain No pain with internal and external rotation of the hips bilaterally Neurovascularly intact Results Pertinent studies: X-rays of the lumbar spine taken on 10/11/2019 and 10/13/2019: L5-S1 severe degenerative disc disease; no evidence of vertebral body compression fracture deformity; overall alignment appears to be adequately maintained - Labs Labs: Abnormal Lab Results - Last 24 Hours (Table) 10/13/19 10/13/19 10/13/19 Range/Units 12:34 17:24 20:27 POC Glucose (mg/dL) 128 H 129 H 128 H (75-99) mg/dL 10/14/19 Range/Units 06:07 POC Glucose (mg/dL) 108 H (75-99) mg/dL Microbiology - Last 24 Hours (Table) 10/13/19 05:39 Blood Culture - Preliminary Blood No Growth after 24 hours 10/09/19 22:49 Blood Culture - Preliminary Blood No Growth after 96 hours 10/09/19 16:14 Blood Culture - Preliminary Blood No Growth after 96 hours 10/11/19 07:31 Blood Culture - Preliminary Blood No Growth after 48 hours 10/12/19 06:49 Blood Culture - Preliminary Blood No Growth after 24 hours H & H 10/09/19 10/10/19 10/11/19 Range/Units 16:14 05:41 07:31 Hgb 12.1 10.3 L 10.4 L (11.4-16.0) gm/dL Hct 39.2 32.4 L 34.1 (34.0-46.0) % 10/12/19 10/12/19 Range/Units 06:49 13:25 Hgb 8.8 L D 9.0 L (11.4-16.0) gm/dL Hct 27.7 L 28.3 L (34.0-46.0) % Coagulation 10/09/19 Range/Units 16:14 INR 1.1 (<1.2) Result Diagrams: 10/12/19 13:25 10/12/19 13:25 Assessment and Plan Assessment: Assessment: Acute left-sided low back pain L5-S1 severe degenerative disc disease Significant chronic left-sided weakness following a history of 3 CVAs Recent diagnosis of atrial fibrillation currently on Eliquis Recent EKG imaging showing atrial fibrillation and rapid ventricular response during presentation in the emergency department; currently normal sinus rhythm Left-sided kidney stones and hydronephrosis most likely due to chronic UPJ obstruction Pneumonia History of diabetes mellitus, hyperlipidemia, hypertension, MRSA, and obesity (1) Acute low back pain Current Visit: Yes Status: Acute Code(s): M54.5 - LOW BACK PAIN SNOMED Code(s): 275952333 (2) Degenerative disc disease at L5-S1 level Current Visit: Yes Status: Acute Code(s): M51.36 - OTHER INTERVERTEBRAL DISC DEGENERATION, LUMBAR REGION SNOMED Code(s): 62556113 (3) Kidney stone on left side Current Visit: Yes Status: Acute Code(s): N20.0 - CALCULUS OF KIDNEY SNOMED Code(s): 76015776 (4) History of CVA (cerebrovascular accident) Current Visit: Yes Status: Acute Code(s): Z86.73 - PRSNL HX OF TIA (TIA), AND CEREB INFRC W/O RESID DEFICITS SNOMED Code(s): 609101224 (5) Weakness due to cerebrovascular accident Current Visit: Yes Status: Acute Code(s): WAF4047 - SNOMED Code(s): 04204195 (6) History of diabetes mellitus Current Visit: Yes Status: Acute Code(s): Z86.39 - PERSONAL HISTORY OF ENDO, NUTRITIONAL AND METABOLIC DISEASE SNOMED Code(s): 792932841 (7) History of hypertension Current Visit: Yes Status: Acute Code(s): Z86.79 - PERSONAL HISTORY OF OTHER DISEASES OF THE CIRCULATORY SYSTEM SNOMED Code(s): 497022407 (8) History of hyperlipidemia Current Visit: Yes Status: Acute Code(s): Z86.39 - PERSONAL HISTORY OF ENDO, NUTRITIONAL AND METABOLIC DISEASE SNOMED Code(s): 574783097 (9) History of MRSA infection Current Visit: Yes Status: Acute Code(s): Z86.14 - PERSONAL HISTORY OF METHICILLIN RESIS STAPH INFECTION SNOMED Code(s): 805481464 (10) Obesity Current Visit: Yes Status: Acute Code(s): E66.9 - OBESITY, UNSPECIFIED SNOMED Code(s): 594443194 (11) Rapid atrial fibrillation Current Visit: Yes Status: Acute Code(s): I48.91 - UNSPECIFIED ATRIAL FIBRILLATION SNOMED Code(s): 410068502 (12) Hydronephrosis Current Visit: No Status: Acute Code(s): N13.30 - UNSPECIFIED HYDRONEPHROSIS SNOMED Code(s): 65166226 Plan: Plan: 1. After physical examination the patient, reviewing of imaging, reviewing the patient history, and further discussion with the patient, we will currently plan to continue conservative treatment at this time. Patient has been experiencing acute left-sided low back pain during her admission to the hospital. These symptoms have been improving over the past couple days. She denies any lower extremity radiculopathy bilaterally. She does have chronic left-sided weakness following a history of 3 CVAs. Patient denies any right lower extremity weakness. Is difficult to determine the exact cause of the patient's left-sided low back pain as she does have significant degenerative change at L5-S1. Her symptoms have been acute since her admission to the hospital. Patient does have history of left-sided kidney stones along with hydronephrosis. Patient feels her symptoms have been improving during her admission. She is currently afebrile. Patient also has a recent diagnosis of atrial fibrillation and is currently on Eliquis. Due to her multiple comorbidities and significant medical history, we would not plan for any acute surgical intervention in regards to her lumbar spine. We also discussed possibility of consultation with pain management but treatment would be difficult due to her recent placement on anticoagulation with Eliquis. Patient has also had improvement of her left- sided low back pain since her admission. At this time, we recommend continued c onservative treatment options and do not currently plan for further imaging or specific treatment in regards to her lumbar spine at this time. At this time, patient will be cleared for discharge from an orthopedic spine standpoint. We plan to have the patient follow-up in the outpatient setting on as-needed basis. If needed, patient may call the office in a follow-up appointment with Harsha Guardado PA-C or Dr. Alfonzo Rothman at [facility]. 2. The patient will continue to be seen and examined by other medical providers for her other significant medical diagnoses including pneumonia, atrial fibrillation, and left-sided kidney stones with left hydronephrosis as well as history of diabetes mellitus, hyperlipidemia, hypertension, MRSA, Torres left- sided weakness, and obesity 3. Patient will continue to be treated for multiple bedsores as treated by medicine Time with Patient: Greater than 30 (Including obtaining history, physical examination, reviewing of imaging, and dictation.)
[2019-10-14] MEDS: amLODIPine 5 MG TAB PO SCH (09:24)
[2019-10-14] MEDS: APIXABAN 5 MG TAB PO SCH ×2 (09:24→19:52)
[2019-10-14] MEDS: METOPROLOL TARTRATE 25 MG TAB PO SCH ×2 (09:24→19:53)
[2019-10-14] MEDS: cloNIDine HCL 0.2 MG TAB PO SCH ×2 (09:24→19:52)
[2019-10-14] MEDS: LOSARTAN 50 MG TAB PO SCH (09:24)
[2019-10-14] MEDS: MAGNESIUM OXIDE 400 MG TAB PO SCH ×3 (09:24→19:52)
[2019-10-14] MEDS: CLOPIDOGREL 75 MG TAB PO SCH (09:32)
--- NOTE | 2019-10-14 10:59 | P.PN ---
Subjective Patient resting in bed family at bedside. Family states patient more awake and alert than yesterday. Patient has been evaluated by urology orthopedics for back pain patient has seen pulmonology and has had cardiology consult regarding A. fib Objective - Vital Signs Vital signs: Vital Signs Temp 96.9 F L 10/14/19 08:10 Pulse 59 L 10/14/19 08:10 Resp 18 10/14/19 08:10 BP 141/65 10/14/19 08:10 Pulse Ox 98 10/14/19 08:10 Intake & Output 10/13/19 10/14/19 10/14/19 18:59 06:59 18:59 Intake Total 350 100 Output Total 850 600 Balance -500 -500 Weight 102 kg Intake: Intake, IV Titration 100 100 Amount Piperacillin-Tazobactam 3 100 100 .375 gm In Sodium Chloride 0.9% 100 ml @ 25 mls/hr IVPB Q8HR [facility] Rx# :[id number] Oral 250 Output: Urine 850 600 Other: Voiding Method Incontinent Incontinent Incontinent - Constitutional General appearance: Present: morbidly obese - EENT Eyes: Present: PERRLA Ears: bilateral: normal - Respiratory Respiratory: bilateral: CTA - Cardiovascular Rhythm: regular - Gastrointestinal General gastrointestinal: Present: soft - Integumentary Integumentary: Present: normal - Neurologic Neurologic: Present: CNII-XII intact - Musculoskeletal Musculoskeletal: Present: left sided weakness - Psychiatric Psychiatric: Present: A&O x's 3 - Labs CBC & Chem 7: 10/12/19 13:25 10/12/19 13:25 Labs: Abnormal Lab Results - Last 24 Hours (Table) 10/13/19 10/13/19 10/13/19 Range/Units 12:34 17:24 20:27 POC Glucose (mg/dL) 128 H 129 H 128 H (75-99) mg/dL 10/14/19 Range/Units 06:07 POC Glucose (mg/dL) 108 H (75-99) mg/dL Microbiology - Last 24 Hours (Table) 10/11/19 07:31 Blood Culture - Preliminary Blood No Growth after 72 hours 10/12/19 06:49 Blood Culture - Preliminary Blood No Growth after 48 hours 10/13/19 05:39 Blood Culture - Preliminary Blood No Growth after 24 hours 10/09/19 22:49 Blood Culture - Preliminary Blood No Growth after 96 hours 10/09/19 16:14 Blood Culture - Preliminary Blood No Growth after 96 hours Assessment and Plan Plan: Assessment Acute bilateral pneumonia acute acquired with sepsis Mental status changes morphine reaction Diabetes type 2 Degenerative disc disease lumbar Hypo-magnesium Atrial fibrillation with RVR paroxysmal Hyponatremia Leukocytosis History of CVA with left-sided weakness gait dysfunction Hypertension Obesity BMI 44.7 Plan Continue consultation with pulmonology
[2019-10-14 12:32] LABS: Glucose,Whole Blood 128 mg/dL (75-99)
[2019-10-14] MEDS: HYDROcodone/APAP 5-325MG 1 EACH TAB PO PRN (15:01)
--- NOTE | 2019-10-14 15:15 | CDI ---
Documentation Clarification Form Date: 10/14/2019 03:01:29 PM From: Kylie Daniels RN CCDS Admit Date: 10/09/2019 07:08:00 PM Patient Name: Joanna Segovia Visit Number: [id number] Discharge Date: ATTENTION: The Clinical Documentation Specialists (CDI) and [facility] Coding Staff appreciate your assistance in clarifying documentation. Please respond to the clarification below the line at the bottom and electronically sign. The CDI & [facility] Coding staff will review the response and follow-up if needed. Please note: Queries are made part of the Legal Health Record. If you have any questions, please contact the author of this message via ITS. Dr. Rhys Holley Mental status changes morphine reaction is documented in your progress note 10/14/2019 History/Risk Factors: 64-year-old female presents to the ED with shortness of breath and some cough and fever. Medical History CVA, TIA, DM, HTN, Clinical Indicators: Progress Note 10/12/2019 The patient complaining of severe back pain yesterday, last night which the patient apparently had some morphine, but subsequently patient apparently responsive an was found to be dysarthric and confused. Labs: 10/12/[address] - Sizable area of encephalomalacia related to prior infarct at the right frontoparietal junction and smaller area at the right parieto- occipital junction. Findings matured from 2016. Mild to moderate changes of chronic small vessel ischemic disease, progressed from 2016. Treatment: CT Brain, Morphine discontinued In your professional opinion, please clarify the etiology of the Altered Mental Status, if known. * Metabolic Encephalopathy secondary to morphine * Other condition (please specify) * Unable to determine (Last Revision: January 2018) MTDD
[2019-10-14 17:17] LABS: Glucose,Whole Blood 163 mg/dL (75-99)
[2019-10-14] MEDS: PANTOPRAZOLE 40 MG TABLET PO SCH (19:52)
[2019-10-14] MEDS: ATORVASTATIN 80 MG TAB PO SCH (19:52)
[2019-10-14] MEDS: AZITHROMYCIN 500 MG TAB PO SCH (19:52)
[2019-10-14] MEDS: CITALOPRAM HYDROBROMIDE 20 MG TAB PO SCH (19:52)
[2019-10-14 21:06] LABS: Glucose,Whole Blood 120 mg/dL (75-99)
--- NOTE | 2019-10-14 21:12 | P.PN ---
Subjective Progress Note Date: 10/14/19 Principal diagnosis: Left hydronephrosis and renal calculi Still having flank pain, but improved compared to yesterday. Denies N/V. Goodman catheter in placed draining w/o issues r Objective - Vital Signs Vital signs: Vital Signs Temp 99.1 F 10/14/19 19:50 Pulse 53 L 10/14/19 19:50 Resp 18 10/14/19 19:50 BP 146/70 10/14/19 19:50 Pulse Ox 99 10/14/19 19:50 Intake & Output 10/14/19 10/14/19 10/15/19 06:59 18:59 06:59 Intake Total 100 100 Output Total 600 Balance -500 100 Weight 102 kg Intake: Intake, IV Titration 100 100 Amount Piperacillin-Tazobactam 3 100 100 .375 gm In Sodium Chloride 0.9% 100 ml @ 25 mls/hr IVPB Q8HR [facility] Rx# :[id number] Output: Urine 600 Other: Voiding Method Incontinent Incontinent - Constitutional General appearance: Present: no acute distress - Gastrointestinal General gastrointestinal: Present: soft. Absent: distended, rigid - Psychiatric Psychiatric: Present: A&O x's 3 - Labs CBC & Chem 7: 10/12/19 13:25 10/12/19 13:25 Labs: Abnormal Lab Results - Last 24 Hours (Table) 10/14/19 10/14/19 10/14/19 Range/Units 06:07 12:30 17:15 POC Glucose (mg/dL) 108 H 128 H 163 H (75-99) mg/dL Microbiology - Last 24 Hours (Table) 10/09/19 16:14 Blood Culture - Preliminary Blood No Growth after 120 hours 10/11/19 07:31 Blood Culture - Preliminary Blood No Growth after 72 hours 10/12/19 06:49 Blood Culture - Preliminary Blood No Growth after 48 hours 10/13/19 05:39 Blood Culture - Preliminary Blood No Growth after 24 hours 10/09/19 22:49 Blood Culture - Preliminary Blood No Growth after 96 hours Assessment and Plan Assessment: 64-year-old female with multiple medical problems. She was found to have a 1 cm calculus and a dilated renal pelvis as well as a 5 mm left posterior wall stone. Review of her CT showed hydronephrosis on left. Her pain could be secondary to MSK vs secondary to her hydronephrosis. Plan: -I discussed with patient and family given her persistent pain will consider ureteroscopy to address her stone with ureteral stent placement. discussed with her that her hydronephrosis appears to be chronic in nature and could be secondary to UPJO. Also her stone is non-obstructive. I discussed with her, she might still be in pain despite addressing her hydronephrosis and renal stone. I also discussed she is at higher risk of complication given her medical problems. At this time patient and family are very hesitant to proceed with any intervention. At this time will obtain a Mag-3 renogram to assess for obstruction, will reassess her pain tomorrow. If Mag-3 showed high grade obstr uction and patient had persistent pain then will proceed with ureteroscopy with stent placement on left. Patient and family were agreeable with the plan.
[2019-10-15] MEDS: HYDROcodone/APAP 5-325MG 1 EACH TAB PO PRN ×3 (02:39→20:39)
[2019-10-15 06:09] LABS: Glucose,Whole Blood 151 mg/dL (75-99)
[2019-10-15] MEDS: metFORMIN 500 MG TAB PO SCH ×2 (06:34→17:56)
[2019-10-15] MEDS: INSULIN ASPART (NovoLOG) 100 UNIT/ML VIAL SQ SCH ×4 (06:34→20:39)
[2019-10-15] MEDS: IPRATROPIUM-ALBUTEROL 3 ML NEB INHALATION SCH ×4 (08:07→22:06)
[2019-10-15] MEDS: PIPERACILLIN-TAZOBACTAM 3.375 GM in SODIUM CHLORIDE 0.9% 100 ML IVPB SCH ×3 (09:02→23:36)
[2019-10-15] MEDS: amLODIPine 5 MG TAB PO SCH (09:03)
[2019-10-15] MEDS: APIXABAN 5 MG TAB PO SCH ×2 (09:03→20:37)
[2019-10-15] MEDS: CLOPIDOGREL 75 MG TAB PO SCH (09:03)
[2019-10-15] MEDS: MAGNESIUM OXIDE 400 MG TAB PO SCH ×3 (09:03→20:38)
[2019-10-15] MEDS: METOPROLOL TARTRATE 25 MG TAB PO SCH ×2 (09:03→20:38)
[2019-10-15] MEDS: LOSARTAN 50 MG TAB PO SCH (09:04)
[2019-10-15] MEDS: cloNIDine HCL 0.2 MG TAB PO SCH ×2 (09:04→20:38)
[2019-10-15 11:56] LABS: Glucose,Whole Blood 146 mg/dL (75-99)
--- NOTE | 2019-10-15 12:04 | P.CONS ---
History of Present Illness - Reason for Consult Consult date: 10/15/19 Nonhealing ulcerations - History of Present Illness This is a 64-year-old pleasant female being seen by the wound care center on [address] for nonhealing ulceration to the coccyx and left lower leg medial aspect. Patient also has a pressure injury stage I to the midline coccyx. Family states that the lower leg ulceration has been there in the past. Patient also had areas of skin breakdown in the past which was treated with zinc barrier cream. The ulceration to the midline cocci is new to the patient since admission the area has ecchymosis and is intact. Ulceration to the left lower leg medial aspect is approximately 3 x 4 x 0.1 cm minimal slough noted in the wound bed granulation seen throughout. Multiple Limited to skin breakdown ulcerations noted to the sacrum. With granulation seen throughout. Patient's past medical history is significant for CVA, diabetes, hypertension Review of Systems Review Of Systems: Constitutional: No fever, no chills, no night sweats. No weight change. No weakness, fatigue or lethargy. No daytime sleepiness. Integumentary:reports wounds, no lesions. No rash or pruritus. No unusual bruising. No change in hair or nails. Past Medical History Past Medical History: CVA/TIA, Diabetes Mellitus, Hypertension Additional Past Medical History / Comment(s): cva x3- lt sided weakness, pt states she is unable to walk and is bedbound History of Any Multi-Drug Resistant Organisms: ESBL, MRSA Year Discovered:: 07/06/19 MRSA & ESBL-E.coli MDRO Source:: Urine-MRSA & ESBL Past Surgical History: Tubal Ligation Additional Past Surgical History / Comment(s): CAROTID ENDART TO CLEAN OUT NECK ARTERY LEFT; campus monitor chip placed Past Anesthesia/Blood Transfusion Reactions: No Reported Reaction Past Psychological History: Depression Smoking Status: Former smoker Past Alcohol Use History: None Reported Past Drug Use History: None Reported - Past Family History Brother(s) Family Medical History: No Reported History Sister(s) Family Medical History: Diabetes Mellitus Additional Family Medical History / Comment(s): RENAL FAILURE, ABCESSES Medications and Allergies Home Medications Medication Instructions Recorded Confirmed Type metFORMIN HCL [Glucophage] 500 mg PO AC-BID 05/30/16 10/09/19 History amLODIPine [Norvasc] 5 mg PO DAILY #30 tab 06/03/16 10/09/19 Rx cloNIDine HCL [Catapres] 0.2 mg PO BID #60 tab 06/03/16 10/09/19 Rx Atorvastatin [Lipitor] 80 mg PO HS 03/22/19 10/09/19 History Losartan Potassium 100 mg PO DAILY 03/22/19 10/09/19 History Pantoprazole [Protonix] 40 mg PO DAILY 03/22/19 10/09/19 History Citalopram Hydrobromide [CeleXA] 40 mg PO HS 07/06/19 10/09/19 History Apixaban [Eliquis] 5 mg PO BID 10/09/19 10/09/19 History Metoprolol Tartrate [Lopressor] 25 mg PO DAILY 10/09/19 10/09/19 History Allergies Allergy/AdvReac Type Severity Reaction Status Date / Time No Known Allergies Allergy Verified 10/09/19 21:08 Physical Exam Vitals: Vital Signs Temp Pulse Pulse Resp BP Pulse Ox 10/15/19 08:23 52 L 10/15/19 08:10 56 L 10/15/19 08:00 97.4 F L 121 H 16 129/82 94 L 10/15/19 04:00 98.1 F 49 L 18 141/60 97 10/14/19 23:53 98.5 F 49 L 18 119/59 96 10/14/19 20:00 49 L 10/14/19 19:50 99.1 F 53 L 18 146/70 99 10/14/19 19:30 50 L 10/14/19 19:19 52 L 10/14/19 15:50 96.7 F L 54 L 18 118/63 97 10/14/19 15:29 58 L 10/14/19 15:16 50 L 98 10/14/19 11:55 97 F L 49 L 18 113/52 98 Intake and Output 10/14/19 10/15/19 10/15/19 22:59 06:59 14:59 Intake Total 150 200 Balance 150 200 Intake: Intake, IV Titration 100 Amount Piperacillin-Tazobactam 3 100 .375 gm In Sodium Chloride 0.9% 100 ml @ 25 mls/hr IVPB Q8HR [facility] Rx# :[id number] Oral 150 100 Other: Voiding Method Incontinent Incontinent Weight 100.2 kg Physical exam: General Appearance: Alert, cooperative, no distress, appears stated age. Skin: See HPI all other Skin color, texture, tugor normal, no rashes or lesions. Neurologic: Alert oriented x3 Results CBC & Chem 7: 10/12/19 13:25 10/12/19 13:25 Labs: Abnormal Lab Results - Last 24 Hours (Table) 10/14/19 10/14/19 10/14/19 Range/Units 12:30 17:15 21:04 POC Glucose (mg/dL) 128 H 163 H 120 H (75-99) mg/dL 10/15/19 Range/Units 06:07 POC Glucose (mg/dL) 151 H (75-99) mg/dL Microbiology - Last 24 Hours (Table) 10/11/19 07:31 Blood Culture - Preliminary Blood No Growth after 96 hours 10/12/19 06:49 Blood Culture - Preliminary Blood No Growth after 72 hours 10/14/19 06:03 Blood Culture - Preliminary Blood No Growth after 24 hours 10/13/19 05:39 Blood Culture - Preliminary Blood No Growth after 48 hours 10/09/19 22:49 Blood Culture - Preliminary Blood No Growth after 120 hours 10/09/19 16:14 Blood Culture - Preliminary Blood No Growth after 120 hours Assessment and Plan (1) Pressure injury of sacral region, stage 1 Current Visit: Yes Status: Acute Code(s): L89.151 - PRESSURE ULCER OF SACRAL REGION, STAGE 1 SNOMED Code(s): 553104706 (2) Nonhealing skin ulcer with fat layer exposed Current Visit: Yes Status: Acute Code(s): L98.492 - NON-PRS CHRONIC ULCER OF SKIN OF SITES W FAT LAYER EXPOSED SNOMED Code(s): 40959435 (3) Type 2 diabetes mellitus with other skin ulcer Current Visit: Yes Status: Acute Code(s): E11.622 - TYPE 2 DIABETES MELLITUS WITH OTHER SKIN ULCER; L98.499 - NON-PRESSURE CHRONIC ULCER OF SKIN OF SITES W UNSP SEVERITY SNOMED Code(s): 528288378 Plan: Midline sacral ulceration utilize honey alginate saline moistened gauze and a foam border gauze changing Monday. The multiple small ulcerations in the left lower leg medial aspect ulceration treat with triad cover as needed. Role patient every 2 hours review surface algorithm continue with offloading. Utilize waffle cushion proceeding. Discussed with patient and family the need for outpatient wound care services if the ulcerations continue to decline or the sacral midline ulceration opened up. Family and the patient verbalizes understanding. Thank you for the consultation, any questions please contact the wound care center DNP note has been reviewed and discussed with Dr. Ruvalcaba and the impression and plan of care has been directed as dictated.
[2019-10-15] MEDS ORDERED: FUROSEMIDE 10 MG/ML 2 ML VIAL IV ONE (13:00)
--- NOTE | 2019-10-15 13:09 | NM ---
EXAMINATION TYPE: NM renal flow and function DATE OF EXAM: 10/15/2019 COMPARISON: Ultrasound 10/10/2019, CT scan 07/09/2019 HISTORY: Pain Following administration of 8.36 mCi Tc99m MAG3. Immediate images post injection. FINDINGS: Left: 25.9 %. Right: 74.1 %. Max renal flow left: 16 minutes. Max renal flow right: 74.1 minutes. Satisfactory accumulation of radiotracer within both renal collecting systems. T 1/2 left: NA minutes. T 1/2 right: NA minutes. FINDINGS: There is markedly reduced split renal function on the left. Flow is similar bilaterally. There is red uced uptake and prolonged excretion of radiotracer on the left. IMPRESSION: 1. Markedly reduced split function on the left and 25.9%. Correlate for chronic medical renal disease and left-sided hydronephrosis.
--- NOTE | 2019-10-15 17:16 | P.PN ---
Subjective Principal diagnosis: Left hydronephrosis and renal calculi No acute overnight event. She indicates her flank pain has completely resolved. Denies any urinary issues at this time. Her Mag3 showed diminshed function on the left with reduced uptake and prolonged excretion. Objective - Vital Signs Vital signs: Vital Signs Temp 97.4 F L 10/15/19 08:00 Pulse 48 L 10/15/19 16:17 Resp 14 10/15/19 16:17 BP 144/68 10/15/19 12:00 Pulse Ox 97 10/15/19 12:00 Intake & Output 10/14/19 10/15/19 10/15/19 18:59 06:59 18:59 Intake Total 100 350 222 Balance 100 350 222 Weight 100.2 kg Intake: Intake, IV Titration 100 100 Amount Piperacillin-Tazobactam 3 100 100 .375 gm In Sodium Chloride 0.9% 100 ml @ 25 mls/hr IVPB Q8HR [facility] Rx# :[id number] Oral 250 222 Other: Voiding Method Incontinent Incontinent # Bowel Movements 1 - Constitutional General appearance: Present: no acute distress - Gastrointestinal General gastrointestinal: Present: soft. Absent: distended, rigid - Psychiatric Psychiatric: Present: A&O x's 3 - Labs CBC & Chem 7: 10/12/19 13:25 10/12/19 13:25 Labs: Abnormal Lab Results - Last 24 Hours (Table) 10/14/19 10/14/19 10/15/19 Range/Units 17:15 21:04 06:07 POC Glucose (mg/dL) 163 H 120 H 151 H (75-99) mg/dL 10/15/19 Range/Units 11:55 POC Glucose (mg/dL) 146 H (75-99) mg/dL Microbiology - Last 24 Hours (Table) 10/11/19 07:31 Blood Culture - Preliminary Blood No Growth after 96 hours 10/12/19 06:49 Blood Culture - Preliminary Blood No Growth after 72 hours 10/14/19 06:03 Blood Culture - Preliminary Blood No Growth after 24 hours 10/13/19 05:39 Blood Culture - Preliminary Blood No Growth after 48 hours 10/09/19 22:49 Blood Culture - Preliminary Blood No Growth after 120 hours 10/09/19 16:14 Blood Culture - Preliminary Blood No Growth after 120 hours Assessment and Plan Assessment: 64-year-old female with multiple medical problems. She was found to have a 1 cm calculus and a dilated renal pelvis as well as a 5 mm left posterior wall stone. Review of her CT showed hydronephrosis on left. Her pain could be secondary to MSK vs secondary to her hydronephrosis. Today her pain has resolved on left. Mag3 is consistent of chronic obstruction with diminished function on left Plan: -I discussed with patient and family again the finding of Mag 3. Discussed with her any surgical intervention has higher risk given her multiple medical problems. I also discussed any definitive intervention to address her chronic obstruction would require major surgical intervention which she is a poor surgical candidate for. Her stones are non-obstructive. Given her pain has resolved we will hold off on any intervention at this point. From Urology Standpoint she is ok to be discharged. She can f/u in the office in 2-3 weeks .
[2019-10-15 17:35] LABS: Glucose,Whole Blood 143 mg/dL (75-99)
[2019-10-15] MEDS: HYDROPHILIC CREAM 180 GM TUBE TOPICAL SCH (17:56)
--- NOTE | 2019-10-15 18:14 | P.PN ---
Subjective Patient resting in bed states pain improved Objective - Vital Signs Vital signs: Vital Signs Temp 97.4 F L 10/15/19 08:00 Pulse 48 L 10/15/19 16:17 Resp 14 10/15/19 16:17 BP 147/73 10/15/19 16:00 Pulse Ox 94 L 10/15/19 16:00 Intake & Output 10/14/19 10/15/19 10/15/19 18:59 06:59 18:59 Intake Total 100 350 222 Balance 100 350 222 Weight 100.2 kg Intake: Intake, IV Titration 100 100 Amount Piperacillin-Tazobactam 3 100 100 .375 gm In Sodium Chloride 0.9% 100 ml @ 25 mls/hr IVPB Q8HR [facility] Rx# :[id number] Oral 250 222 Other: Voiding Method Incontinent Incontinent # Bowel Movements 1 - Constitutional General appearance: Present: mild distress - EENT Eyes: Present: PERRLA Ears: bilateral: normal - Neck Neck: Present: normal ROM - Respiratory Respiratory: bilateral: CTA - Cardiovascular Rhythm: regular - Gastrointestinal General gastrointestinal: Present: soft - Integumentary Integumentary Comment(s): Skin breakdown to coccyx area and left inner thigh - Musculoskeletal Musculoskeletal: Present: left sided weakness - Psychiatric Psychiatric: Present: A&O x's 3, appropriate affect, intact judgment & insight - Labs CBC & Chem 7: 10/12/19 13:25 10/12/19 13:25 Labs: Abnormal Lab Results - Last 24 Hours (Table) 10/14/19 10/15/19 10/15/19 Range/Units 21:04 06:07 11:55 POC Glucose (mg/dL) 120 H 151 H 146 H (75-99) mg/dL 10/15/19 Range/Units 17:32 POC Glucose (mg/dL) 143 H (75-99) mg/dL Microbiology - Last 24 Hours (Table) 10/11/19 07:31 Blood Culture - Preliminary Blood No Growth after 96 hours 10/12/19 06:49 Blood Culture - Preliminary Blood No Growth after 72 hours 10/14/19 06:03 Blood Culture - Preliminary Blood No Growth after 24 hours 10/13/19 05:39 Blood Culture - Preliminary Blood No Growth after 48 hours 10/09/19 22:49 Blood Culture - Preliminary Blood No Growth after 120 hours 10/09/19 16:14 Blood Culture - Preliminary Blood No Growth after 120 hours Assessment and Plan Plan: Assessment Bilateral pneumonia community-acquired gram-negative mental status changes secondary morphine reaction metabolic encephalopathy Diabetes type 2 Back pain degenerative joint disease Hypo-magnesium Paroxysmal atrial fibrillation hyponatremia Left-sided weakness 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
[2019-10-15] MEDS ORDERED: diphenhydrAMINE ELIXIR 25 MG/10 ML CUP PO PRN (20:24)
[2019-10-15 20:37] LABS: Glucose,Whole Blood 123 mg/dL (75-99)
[2019-10-15] MEDS: PANTOPRAZOLE 40 MG TABLET PO SCH (20:37)
[2019-10-15] MEDS: ATORVASTATIN 80 MG TAB PO SCH (20:37)
[2019-10-15] MEDS: CITALOPRAM HYDROBROMIDE 20 MG TAB PO SCH (20:38)
[2019-10-15] MEDS: AZITHROMYCIN 500 MG TAB PO SCH (20:38)
[2019-10-16] MEDS ORDERED: diphenhydrAMINE 25 MG CAP PO PRN (00:49)
[2019-10-16 06:17] LABS: Glucose,Whole Blood 105 mg/dL (75-99)
[2019-10-16] MEDS: INSULIN ASPART (NovoLOG) 100 UNIT/ML VIAL SQ SCH ×3 (06:58→17:59)
[2019-10-16] MEDS: metFORMIN 500 MG TAB PO SCH ×2 (06:59→18:03)
[2019-10-16] MEDS: IPRATROPIUM-ALBUTEROL 3 ML NEB INHALATION SCH ×3 (07:46→15:49)
[2019-10-16] MEDS: APIXABAN 5 MG TAB PO SCH (09:19)
[2019-10-16] MEDS: PIPERACILLIN-TAZOBACTAM 3.375 GM in SODIUM CHLORIDE 0.9% 100 ML IVPB SCH ×2 (09:19→16:42)
[2019-10-16] MEDS: METOPROLOL TARTRATE 25 MG TAB PO SCH (09:19)
[2019-10-16] MEDS: MAGNESIUM OXIDE 400 MG TAB PO SCH ×2 (09:19→18:03)
[2019-10-16] MEDS: cloNIDine HCL 0.2 MG TAB PO SCH (09:19)
[2019-10-16] MEDS: amLODIPine 5 MG TAB PO SCH (09:19)
[2019-10-16] MEDS: LOSARTAN 50 MG TAB PO SCH (09:19)
[2019-10-16] MEDS: CLOPIDOGREL 75 MG TAB PO SCH (09:19)
[2019-10-16] MEDS: HYDROPHILIC CREAM 180 GM TUBE TOPICAL SCH (09:20)
[2019-10-16] MEDS: ACETAMINOPHEN TAB 500 MG TAB PO PRN (09:26)
[2019-10-16 11:00] VITALS: RESP 16; TEMP 97.5
[2019-10-16 11:53] LABS: Glucose,Whole Blood 136 mg/dL (75-99)
--- NOTE | 2019-10-16 13:24 | P.PN ---
Subjective Patient improved today patient could've by urology orthopedics cardiology awaiting recommendations for pulmonology for discharge Objective - Vital Signs Vital signs: Vital Signs Temp 97.5 F L 10/16/19 08:00 Pulse 50 L 10/16/19 12:00 Resp 16 10/16/19 12:00 BP 155/82 10/16/19 12:00 Pulse Ox 92 L 10/16/19 12:00 Intake & Output 10/15/19 10/16/19 10/16/19 18:59 06:59 18:59 Intake Total 222 580 0 Balance 222 580 0 Weight 82.5 kg Intake: Intake, IV Titration 100 Amount Piperacillin-Tazobactam 3 100 .375 gm In Sodium Chloride 0.9% 100 ml @ 25 mls/hr IVPB Q8HR [facility] Rx# :[id number] Oral 222 480 0 Other: Voiding Method Incontinent Incontinent Incontinent # Bowel Movements 1 2 - Constitutional General appearance: Present: mild distress - EENT Eyes: Present: PERRLA Ears: bilateral: normal - Neck Neck: Present: normal ROM - Respiratory Respiratory: bilateral: rhonchi - Cardiovascular Rhythm: regular - Gastrointestinal General gastrointestinal: Present: soft - Integumentary Integumentary Comment(s): Pressure ulceration to coccyx and left inner thigh - Neurologic Neurologic: Present: CNII-XII intact - Musculoskeletal Musculoskeletal: Present: left sided weakness - Psychiatric Psychiatric: Present: A&O x's 3, appropriate affect, intact judgment & insight - Labs CBC & Chem 7: 10/12/19 13:25 10/12/19 13:25 Labs: Abnormal Lab Results - Last 24 Hours (Table) 10/15/19 10/15/19 10/16/19 Range/Units 17:32 20:35 06:15 POC Glucose (mg/dL) 143 H 123 H 105 H (75-99) mg/dL 10/16/19 Range/Units 11:50 POC Glucose (mg/dL) 136 H (75-99) mg/dL Microbiology - Last 24 Hours (Table) 10/11/19 07:31 Blood Culture - Preliminary Blood No Growth after 120 hours 10/12/19 06:49 Blood Culture - Preliminary Blood No Growth after 96 hours 10/15/19 06:06 Blood Culture - Preliminary Blood No Growth after 24 hours 10/14/19 06:03 Blood Culture - Preliminary Blood No Growth after 48 hours 10/13/19 05:39 Blood Culture - Preliminary Blood No Growth after 72 hours 10/09/19 22:49 Blood Culture - Final Blood No Growth after 144 hours 10/09/19 16:14 Blood Culture - Final Blood No Growth after 144 hours Assessment and Plan Plan: Assessment bilateral pneumonia gram-negative community-acquired Change in mentation morphine reaction metabolic encephalopathy resolved diabetes type 2 Degenerative joint disease lumbar Hypo-magnesium Paroxysmal atrial fibrillation hyponatremia Leukocytosis CVA with left-sided weakness and gait dysfunction Hypertension MRSA Obesity BMI 44.7 Plan Awaiting recommendations for discharge from pulmonology they wished to continue IV antibiotics she needs a line placement
[2019-10-16 13:33] VITALS: BMI 33.3
--- NOTE | 2019-10-16 14:05 | XR ---
EXAMINATION TYPE: XR chest 2V DATE OF EXAM: 10/16/2019 COMPARISON: 10/11/2019 TECHNIQUE: PA and lateral views submitted. HISTORY: Shortness of breath FINDINGS: Heart is enlarged and there is interstitial pattern with by basilar infiltrates. Small bilateral effu sions. Degenerative change of the spine. No pneumothorax. IMPRESSION: 1. Findings are most typical of mild CHF. Underlying pneumonia not excluded correlate clinically. Fin dings similar to the prior exam.
--- NOTE | 2019-10-16 14:56 | P.PN ---
Subjective Progress Note Date: 10/16/19 10/16/2019 was asked to evaluate this patient to make sure that she is clear for discharge and completed antibiotic course and she received a combination of Zosyn and Zithromax. Chest x-ray was reviewed. There is cardiomegaly. No other abnormalities on the chest x-ray were noted. No aspiration. No fever. No chills. No leukocytosis. She is hemodynamically stable for now. She is communicating. She is on room air oxygen. Pulse ox is in the order of 90-93%. She has had a previous CVA and she is nonambulatory at this point in time. Family is very supportive and the patient is going to go h Objective - Vital Signs Vital signs: Vital Signs Temp 97.5 F L 10/16/19 08:00 Pulse 50 L 10/16/19 12:00 Resp 16 10/16/19 12:00 BP 155/82 10/16/19 12:00 Pulse Ox 92 L 10/16/19 12:00 Intake & Output 10/15/19 10/16/19 10/16/19 18:59 06:59 18:59 Intake Total 222 580 240 Balance 222 580 240 Weight 82.5 kg 82.5 kg Intake: Intake, IV Titration 100 Amount Piperacillin-Tazobactam 3 100 .375 gm In Sodium Chloride 0.9% 100 ml @ 25 mls/hr IVPB Q8HR [facility] Rx# :[id number] Oral 222 480 240 Other: Voiding Method Incontinent Incontinent Incontinent # Bowel Movements 1 2 - Exam GENERAL EXAM: Alert, obese comfortable in no apparent distress. On her oxygen with a pulse ox of 90% HEAD: Normocephalic. EYES: Normal reaction of pupils, equal size. NOSE: Clear with pink turbinates. THROAT: No erythema or exudates. NECK: No masses, no JVD. CHEST: No chest wall deformity. LUNGS: Equal air entry with few scattered rhonchi. CVS: S1 and S2 normal with no audible murmur, regular rhythm. ABDOMEN: No hepatosplenomegaly, normal bowel sounds, no guarding or rigidity. SPINE: No scoliosis or deformity SKIN: No rashes CENTRAL NERVOUS SYSTEM: He has left-sided weakness related to previous CVA. She has motor weakness in the left upper and left lower extremity and she is not on laboratory at this stage. Right upper extremity and the right side in general is adequate in terms of motor function. She is awake and alert. EXTREMITIES: There is no peripheral edema. No clubbing, no cyanosis. Peripher - Labs CBC & Chem 7: 10/12/19 13:25 10/12/19 13:25 Labs: Abnormal Lab Results - Last 24 Hours (Table) 10/15/19 10/15/19 10/16/19 Range/Units 17:32 20:35 06:15 POC Glucose (mg/dL) 143 H 123 H 105 H (75-99) mg/dL 10/16/19 Range/Units 11:50 POC Glucose (mg/dL) 136 H (75-99) mg/dL Microbiology - Last 24 Hours (Table) 10/11/19 07:31 Blood Culture - Preliminary Blood No Growth after 120 hours 10/12/19 06:49 Blood Culture - Preliminary Blood No Growth after 96 hours 10/15/19 06:06 Blood Culture - Preliminary Blood No Growth after 24 hours 10/14/19 06:03 Blood Culture - Preliminary Blood No Growth after 48 hours 10/13/19 05:39 Blood Culture - Preliminary Blood No Growth after 72 hours 10/09/19 22:49 Blood Culture - Final Blood No Growth after 144 hours 10/09/19 16:14 Blood Culture - Final Blood No Growth after 144 hours Assessment and Plan Plan: 1 Atrial fibrillation with rapid ventricular response, currently in sinus rhythm 2 Profound weakness secondary to dehydration from nausea and vomiting, recovered 3 Purulent tracheobronchitis versus bronchopneumonia and is currently on antibiotics, recovered and the patient completed a course of Zosyn and Zithromax and she completed 7 day course. Her most recent chest x-ray still showing no acute abnormalities. 4 History of CVA 5 Diabetes mellitus 6 Hyperlipidemia 7 Hypertension 8 History of MRSA and ESBL 9 Previous carotid endarterectomy 10 Obesity. Plan Clear for discharge from the pulmonary standpoint. No need for home antibiotics. No need for any respiratory medications. No need for oxygen.
[2019-10-16 16:52] LABS: Glucose,Whole Blood 112 mg/dL (75-99)
[2019-10-16 18:49] VITALS: BP 157/77; PULSE 51
[2019-10-16] MEDS ORDERED: APIXABAN 5 MG TAB PO SCH (21:00)
--- NOTE | 2019-10-17 12:19 | P.DS ---
Providers Date of admission: 10/09/19 19:08 Expected date of discharge: 10/16/19 Attending physician: Rhys Holley Consults: 10/09/19 19:07 Consult Physician Routine Consulting Provider: Miko Morales Consult Reason/Comments: Rapid atrial fibrillation Do you want consulting provider notified?: Yes 10/09/19 22:08 Consult Physician Routine Consulting Provider: Oumar Coto Consult Reason/Comments: pneumonia Do you want consulting provider notified?: Yes 10/10/19 18:41 Consult Physician Routine Consulting Provider: Wiliam Buchanan Consult Reason/Comments: Hx Renal calculi-Left hydronephrosis, fever of UNK origin, Left Flank pain Do you want consulting provider notified?: Yes 10/13/19 12:30 Consult Physician Routine Consulting Provider: Mckayla Rothman Consult Reason/Comments: back pain Do you want consulting provider notified?: Yes, Notify in am Primary care physician: Rhys Holley Hospital Course: 64-year-old female was brought to the emergency room with complaints of back pain. Patient found to have bilateral pneumonia was treated by pulmonology. Patient was evaluated for degenerative disc disease by Dr. Marrero cleared for discharge. Patient was evaluated by urology for possible kidney stones cleared for discharge. Patient was evaluated for A. fib with RVR with cardiology. Patient was also treated by pulmonology for pneumonia was cleared for discharge patient has improved Assessment Acute bilateral pneumonia gram-negative with sepsis community-acquired Mental status changes secondary to morphine reaction metabolic encephalopathy Diabetes type 2 Degenerative disc disease Hypo-magnesium Atrial fib with rapid RVR paroxysmal Hyponatremia Leukocytosis History of old CVA with left-sided weakness and gait dysfunction Hypertension MRSA Obesity with BMI of 44.7 Plan Will follow-up with pulmonology cardiology urology orthopedics for degenerative disc disease and family physician Dr. Rhys Holley Patient Condition at Discharge: Fair Plan - Discharge Summary New Discharge Prescriptions: No Action metFORMIN HCL [Glucophage] 500 mg PO AC-BID amLODIPine [Norvasc] 5 mg PO DAILY #30 tab cloNIDine HCL [Catapres] 0.2 mg PO BID #60 tab Atorvastatin [Lipitor] 80 mg PO HS Pantoprazole [Protonix] 40 mg PO DAILY Losartan Potassium 100 mg PO DAILY Citalopram Hydrobromide [CeleXA] 40 mg PO HS Metoprolol Tartrate [Lopressor] 25 mg PO DAILY Apixaban [Eliquis] 5 mg PO BID Discharge Medication List metFORMIN HCL [Glucophage] 500 mg PO AC-BID 05/30/16 [History] amLODIPine [Norvasc] 5 mg PO DAILY #30 tab 06/03/16 [Rx] cloNIDine HCL [Catapres] 0.2 mg PO BID #60 tab 06/03/16 [Rx] Atorvastatin [Lipitor] 80 mg PO HS 03/22/19 [History] Losartan Potassium 100 mg PO DAILY 03/22/19 [History] Pantoprazole [Protonix] 40 mg PO DAILY 03/22/19 [History] Citalopram Hydrobromide [CeleXA] 40 mg PO HS 07/06/19 [History] Apixaban [Eliquis] 5 mg PO BID 10/09/19 [History] Metoprolol Tartrate [Lopressor] 25 mg PO DAILY 10/09/19 [History] Follow up Appointment(s)/Referral(s): [facility] [Provider Group] - 1 Week (Office is closed. Please call to schedule appointment) Rhys Holley MD [Primary Care Provider] - 1-2 days (Office is closed. Please call to schedule appointment) Daniel Combs MD [STAFF PHYSICIAN] - 1 Week (Office is closed. Please call to schedule appointment) Harsha Guardado PAC [PHYSICIAN [employer]PHOL[employer]ER] - As Needed (Patient may follow-up with Harsha Guardado PA-C or Dr. Alfonzo Rothman at [facility] on as-needed basis following discharge. ) Oumar Coto DO [Doctor of Osteopathic Medicine] - 1 Week (Office is closed. Please call to schedule appointment) [facility] [NON-STAFF] - 1 Week Patient Instructions/Handouts: A-fib (Atrial Fibrillation) (DC), Pneumonia (DC) Discharge Disposition: HOME SELF-CARE
== END 2019-10-16 20:36 | disposition home or self-care (01) | DRG 871 ==
LOC: EC 15:36 → 3SCARD 19:08
PROVIDERS: ADMIT Family Medicine; ATTEND Family Medicine
DX: A41.50 Gram-negative sepsis, unspecified (principal); J15.6 Pneumonia due to other Gram-negative bacteria; G92 Toxic encephalopathy; E87.1 Hypo-osmolality and hyponatremia; I69.354 Hemiplegia and hemiparesis following cerebral infarction affecting left non-dominant side; J44.0 Chronic obstructive pulmonary disease with (acute) lower respiratory infection; J98.11 Atelectasis; L97.929 Non-pressure chronic ulcer of unspecified part of left lower leg with unspecified severity; N13.2 Hydronephrosis with renal and ureteral calculous obstruction; Z68.42 Body mass index [BMI] 45.0-49.9, adult; Z87.891 Personal history of nicotine dependence; Z86.14 Personal history of Methicillin resistant Staphylococcus aureus infection; E11.622 Type 2 diabetes mellitus with other skin ulcer; E11.65 Type 2 diabetes mellitus with hyperglycemia; E78.5 Hyperlipidemia, unspecified; E83.42 Hypomagnesemia; T40.2X5A Adverse effect of other opioids, initial encounter; E86.0 Dehydration; I11.9 Hypertensive heart disease without heart failure; I48.0 Paroxysmal atrial fibrillation; L89.151 Pressure ulcer of sacral region, stage 1; L98.492 Non-pressure chronic ulcer of skin of other sites with fat layer exposed; M51.37 Other intervertebral disc degeneration, lumbosacral region; M47.817 Spondylosis without myelopathy or radiculopathy, lumbosacral region; Z79.01 Long term (current) use of anticoagulants; Z79.02 Long term (current) use of antithrombotics/antiplatelets; Z79.82 Long term (current) use of aspirin; Z79.84 Long term (current) use of oral hypoglycemic drugs; Z79.899 Other long term (current) drug therapy; Z83.3 Family history of diabetes mellitus; Z84.1 Family history of disorders of kidney and ureter; Z86.19 Personal history of other infectious and parasitic diseases; Z87.442 Personal history of urinary calculi; Z98.51 Tubal ligation status; Z74.01 Bed confinement status; R26.9 Unspecified abnormalities of gait and mobility; E66.01 Morbid (severe) obesity due to excess calories
CPT/HCPCS: 36415; 51702; 70450; 71045; 71046; 72100; 76770; 78707; 80048; 80053; 81001; 82009; 82550; 83735; 83880; 84443; 84484; 85025; 85610; 85730; 87040; 87502; 93005; 93306; 94640; 94760; 96365; 96366; 96368; 96375; 96376; 99291

== ENCOUNTER 2019-10-27 14:03 | Inpatient (IN) | payer MEDICARE, BC ==
[2019-10-27] MEDS ORDERED: SODIUM CHLORIDE 0.9% 1,000 ML IV STA (14:40)
[2019-10-27] MEDS ORDERED: ONDANSETRON 4 MG/2 ML VIAL IVP STA (14:40)
[2019-10-27] MEDS ORDERED: PANTOPRAZOLE 40 MG/10 ML VIAL IVP STA (14:41)
--- NOTE | 2019-10-27 14:49 | ED ---
General Adult HPI - General Chief complaint: Nausea/Vomiting/Diarrhea Stated complaint: Vomiting, Fever Time Seen by Provider: 10/27/19 14:15 Source: family Mode of arrival: wheelchair Limitations: no limitations - History of Present Illness Initial comments: Patient is 64-year-old female with history of sepsis, CVA and pneumonia presenting to emergency Department with a chief complaint of a fever and vomiting. Patient daughter states the patient was discharged from the hospital about 10 days ago and has gradually improved. She states over the last few days the patient has felt somewhat weak and barely ate anything this morning she began to have nonbloody, nonbilious vomit. Patient reports that she feels "good". However, the daughter disagrees. Patient is also completing of some low back pain. Patient does have diarrhea but that is her baseline after she was discharged from the hospital. Patient denies increased urinary urgency, frequency or dysuria. Patient does have left-sided paralysis at baseline after CVA.. Patient denies hematuria, hematochezia or melena. Patient had chest pain, shortness of breath, cough, abdominal pain, headache or blurry vision. - Related Data Home Medications Medication Instructions Recorded Confirmed metFORMIN HCL [Glucophage] 500 mg PO AC-BID 05/30/16 11/06/19 Atorvastatin [Lipitor] 80 mg PO HS 03/22/19 11/06/19 Losartan Potassium 100 mg PO DAILY 03/22/19 11/06/19 Pantoprazole [Protonix] 40 mg PO DAILY 03/22/19 11/06/19 Citalopram Hydrobromide [CeleXA] 40 mg PO HS 07/06/19 11/06/19 Apixaban [Eliquis] 5 mg PO BID 10/09/19 11/06/19 Metoprolol Tartrate [Lopressor] 25 mg PO DAILY 10/09/19 11/06/19 Previous Rx's Medication Instructions Recorded amLODIPine [Norvasc] 5 mg PO DAILY #30 tab 06/03/16 cloNIDine HCL [Catapres] 0.2 mg PO BID #60 tab 06/03/16 Ertapenem [INVanz] 1 gm IVPB Q24H #14 bag 10/30/19 Hydrocortisone Pr Cream 1 applic RECTAL BID #1 applic 10/31/19 [Proctosol-Hc 2.5%] Allergies Allergy/AdvReac Type Severity Reaction Status Date / Time No Known Allergies Allergy Verified 11/06/19 08:42 Review of Systems ROS Statement: Those systems with pertinent positive or pertinent negative responses have been documented in the HPI. ROS Other: All systems not noted in ROS Statement are negative. Past Medical History Past Medical History: CVA/TIA, Diabetes Mellitus, Hypertension Additional Past Medical History / Comment(s): cva x3- lt sided weakness, pt states she is unable to walk and is bedbound History of Any Multi-Drug Resistant Organisms: ESBL, MRSA Date of last positivie culture/infection: 07/06/19 MRSA & ESBL-E.coli MDRO Source:: Urine-MRSA & ESBL Past Surgical History: Tubal Ligation Additional Past Surgical History / Comment(s): CAROTID ENDART TO CLEAN OUT NECK ARTERY LEFT; water meter installer chip placed Past Anesthesia/Blood Transfusion Reactions: No Reported Reaction Past Psychological History: Depression Smoking Status: Former smoker Past Alcohol Use History: None Reported Past Drug Use History: None Reported - Past Family History Brother(s) Family Medical History: No Reported History Sister(s) Family Medical History: Diabetes Mellitus Additional Family Medical History / Comment(s): RENAL FAILURE, ABCESSES General Exam Limitations: no limitations General appearance: alert, in no apparent distress, obese Head exam: Present: atraumatic, normocephalic, normal inspection Eye exam: Present: normal appearance, PERRL, EOMI Pupils: Present: normal accommodation ENT exam: Present: normal exam, normal oropharynx, mucous membranes moist, TM's normal bilaterally, normal external ear exam Neck exam: Present: normal inspection, full ROM. Absent: tenderness, lymphadenopathy Respiratory exam: Present: normal lung sounds bilaterally. Absent: respiratory distress, wheezes, rales, chest wall tenderness, accessory muscle use Cardiovascular Exam: Present: regular rate, normal rhythm, systolic murmur GI/Abdominal exam: Present: soft. Absent: distended, tenderness, guarding Extremities exam: Present: normal inspection (Left-sided paralysis on the left upper and lower extremity.), full ROM, normal capillary refill, pedal edema (Bilateral lower extremity edema baseline.), other (+2 ulnar and radial pulses bilaterally.). Absent: tenderness Back exam: Present: normal inspection, full ROM Course Vital Signs 10/27/19 10/27/19 10/27/19 14:04 15:30 17:00 Temperature 101.0 F H Pulse Rate 95 97 85 Respiratory 20 17 16 Rate Blood Pressure 206/81 196/76 192/65 O2 Sat by Pulse 95 88 L 92 L Oximetry 10/27/19 18:00 Temperature 100.7 F H Pulse Rate 74 Respiratory 16 Rate Blood Pressure 188/71 O2 Sat by Pulse 94 L Oximetry Medical Decision Making - Medical Decision Making Patient is 64-year-old female with history of sepsis, CVA and pneumonia presenting to emergency Department with a chief complaint of a fever and vomiting. Patient daughter states the patient was discharged from the hospital about 10 days ago and has gradually improved. She states over the last few days the patient has felt somewhat weak and barely ate anything this morning she began to have nonbloody, nonbilious vomit. Patient does have left-sided paralysis at baseline after CVA.. - Lab Data Result diagrams: 10/27/19 14:37 10/27/19 14:37 Lab Results 10/27/19 10/27/19 10/27/19 Range/Units 14:37 14:37 14:37 WBC 5.4 (3.8-10.6) k/uL RBC 4.53 (3.80-5.40) m/uL Hgb 11.3 L (11.4-16.0) gm/dL Hct 37.5 (34.0-46.0) % MCV 82.7 (80.0-100.0) fL MCH 24.9 L (25.0-35.0) pg MCHC 30.1 L (31.0-37.0) g/dL RDW 15.1 (11.5-15.5) % Plt Count 235 (150-450) k/uL Neutrophils % 92 % Lymphocytes % 4 % Monocytes % 2 % Eosinophils % 1 % Basophils % 1 % Neutrophils # 4.9 (1.3-7.7) k/uL Lymphocytes # 0.2 L (1.0-4.8) k/uL Monocytes # 0.1 (0-1.0) k/uL Eosinophils # 0.1 (0-0.7) k/uL Basophils # 0.0 (0-0.2) k/uL Hypochromasia Moderate D-Dimer (<0.60) mg/L FEU Sodium 136 L (137-145) mmol/L Potassium 5.0 (3.5-5.1) mmol/L Chloride 107 (98-107) mmol/L Carbon Dioxide 17 L (22-30) mmol/L Anion Gap 12 mmol/L BUN 14 (7-17) mg/dL Creatinine 1.23 H (0.52-1.04) mg/dL Est GFR (CKD-EPI)AfAm 53 (>60 ml/min/1.73 sqM) Est GFR (CKD-EPI)NonAf 46 (>60 ml/min/1.73 sqM) Glucose 181 H (74-99) mg/dL Lactic Ac Sepsis Rflx Plasma Lactic Acid Rock (0.7-2.0) mmol/L Calcium 9.6 (8.4-10.2) mg/dL Magnesium (1.6-2.3) mg/dL Total Bilirubin 1.0 (0.2-1.3) mg/dL AST 28 (14-36) U/L ALT 11 (4-34) U/L Alkaline Phosphatase 98 (38-126) U/L Troponin I <0.012 (0.000-0.034) ng/mL NT-Pro-B Natriuret Pep pg/mL Total Protein 7.7 (6.3-8.2) g/dL Albumin 3.9 (3.5-5.0) g/dL Amylase 61 (30-110) U/L Lipase 229 (23-300) U/L Urine Color Urine Appearance (Clear) Urine pH (5.0-8.0) Ur Specific [place] (1.001-1.035) Urine Protein (Negative) Urine Glucose (UA) (Negative) Urine Ketones (Negative) Urine Blood (Negative) Urine Nitrite (Negative) Urine Bilirubin (Negative) Urine Urobilinogen (<2.0) mg/dL Ur Leukocyte Esterase (Negative) Urine RBC (0-5) /hpf Urine WBC (0-5) /hpf Ur Squamous Epith Cells (0-4) /hpf Urine Bacteria (None) /hpf Hyaline Casts (0-2) /lpf Urine Mucus (None) /hpf Influenza Type A RNA (Not Detectd) Influenza Type B (PCR) (Not Detectd) 10/27/19 10/27/19 10/27/19 Range/Units 14:37 14:40 14:40 WBC (3.8-10.6) k/uL RBC (3.80-5.40) m/uL Hgb (11.4-16.0) gm/dL Hct (34.0-46.0) % MCV (80.0-100.0) fL MCH (25.0-35.0) pg MCHC (31.0-37.0) g/dL RDW (11.5-15.5) % Plt Count (150-450) k/uL Neutrophils % % Lymphocytes % % Monocytes % % Eosinophils % % Basophils % % Neutrophils # (1.3-7.7) k/uL Lymphocytes # (1.0-4.8) k/uL Monocytes # (0-1.0) k/uL Eosinophils # (0-0.7) k/uL Basophils # (0-0.2) k/uL Hypochromasia D-Dimer (<0.60) mg/L FEU Sodium (137-145) mmol/L Potassium (3.5-5.1) mmol/L Chloride (98-107) mmol/L Carbon Dioxide (22-30) mmol/L Anion Gap mmol/L BUN (7-17) mg/dL Creatinine (0.52-1.04) mg/dL Est GFR (CKD-EPI)AfAm (>60 ml/min/1.73 sqM) Est GFR (CKD-EPI)NonAf (>60 ml/min/1.73 sqM) Glucose (74-99) mg/dL Lactic Ac Sepsis Rflx Plasma Lactic Acid Rock 3.7 H* (0.7-2.0) mmol/L Calcium (8.4-10.2) mg/dL Magnesium 1.0 L (1.6-2.3) mg/dL Total Bilirubin (0.2-1.3) mg/dL AST (14-36) U/L ALT (4-34) U/L Alkaline Phosphatase (38-126) U/L Troponin I (0.000-0.034) ng/mL NT-Pro-B Natriuret Pep 1280 pg/mL Total Protein (6.3-8.2) g/dL Albumin (3.5-5.0) g/dL Amylase (30-110) U/L Lipase (23-300) U/L Urine Color Urine Appearance (Clear) Urine pH (5.0-8.0) Ur Specific [place] (1.001-1.035) Urine Protein (Negative) Urine Glucose (UA) (Negative) Urine Ketones (Negative) Urine Blood (Negative) Urine Nitrite (Negative) Urine Bilirubin (Negative) Urine Urobilinogen (<2.0) mg/dL Ur Leukocyte Esterase (Negative) Urine RBC (0-5) /hpf Urine WBC (0-5) /hpf Ur Squamous Epith Cells (0-4) /hpf Urine Bacteria (None) /hpf Hyaline Casts (0-2) /lpf Urine Mucus (None) /hpf Influenza Type A RNA (Not Detectd) Influenza Type B (PCR) (Not Detectd) 10/27/19 10/27/19 10/27/19 Range/Units 14:40 15:00 15:00 WBC (3.8-10.6) k/uL RBC (3.80-5.40) m/uL Hgb (11.4-16.0) gm/dL Hct (34.0-46.0) % MCV (80.0-100.0) fL MCH (25.0-35.0) pg MCHC (31.0-37.0) g/dL RDW (11.5-15.5) % Plt Count (150-450) k/uL Neutrophils % % Lymphocytes % % Monocytes % % Eosinophils % % Basophils % % Neutrophils # (1.3-7.7) k/uL Lymphocytes # (1.0-4.8) k/uL Monocytes # (0-1.0) k/uL Eosinophils # (0-0.7) k/uL Basophils # (0-0.2) k/uL Hypochromasia D-Dimer 0.84 H (<0.60) mg/L FEU Sodium (137-145) mmol/L Potassium (3.5-5.1) mmol/L Chloride (98-107) mmol/L Carbon Dioxide (22-30) mmol/L Anion Gap mmol/L BUN (7-17) mg/dL Creatinine (0.52-1.04) mg/dL Est GFR (CKD-EPI)AfAm (>60 ml/min/1.73 sqM) Est GFR (CKD-EPI)NonAf (>60 ml/min/1.73 sqM) Glucose (74-99) mg/dL Lactic Ac Sepsis Rflx Plasma Lactic Acid Rock (0.7-2.0) mmol/L Calcium (8.4-10.2) mg/dL Magnesium (1.6-2.3) mg/dL Total Bilirubin (0.2-1.3) mg/dL AST (14-36) U/L ALT (4-34) U/L Alkaline Phosphatase (38-126) U/L Troponin I (0.000-0.034) ng/mL NT-Pro-B Natriuret Pep pg/mL Total Protein (6.3-8.2) g/dL Albumin (3.5-5.0) g/dL Amylase (30-110) U/L Lipase (23-300) U/L Urine Color Light Yellow Urine Appearance Cloudy H (Clear) Urine pH 5.5 (5.0-8.0) Ur Specific [place] 1.009 (1.001-1.035) Urine Protein 2+ H (Negative) Urine Glucose (UA) Negative (Negative) Urine Ketones Negative (Negative) Urine Blood Small H (Negative) Urine Nitrite Negative (Negative) Urine Bilirubin Negative (Negative) Urine Urobilinogen <2.0 (<2.0) mg/dL Ur Leukocyte Esterase Large H (Negative) Urine RBC 4 (0-5) /hpf Urine WBC 32 H (0-5) /hpf Ur Squamous Epith Cells 32 H (0-4) /hpf Urine Bacteria Occasional H (None) /hpf Hyaline Casts 3 H (0-2) /lpf Urine Mucus Rare H (None) /hpf Influenza Type A RNA Not Detected (Not Detectd) Influenza Type B (PCR) Not Detected (Not Detectd) 10/27/19 Range/Units 15:23 WBC (3.8-10.6) k/uL RBC (3.80-5.40) m/uL Hgb (11.4-16.0) gm/dL Hct (34.0-46.0) % MCV (80.0-100.0) fL MCH (25.0-35.0) pg MCHC (31.0-37.0) g/dL RDW (11.5-15.5) % Plt Count (150-450) k/uL Neutrophils % % Lymphocytes % % Monocytes % % Eosinophils % % Basophils % % Neutrophils # (1.3-7.7) k/uL Lymphocytes # (1.0-4.8) k/uL Monocytes # (0-1.0) k/uL Eosinophils # (0-0.7) k/uL Basophils # (0-0.2) k/uL Hypochromasia D-Dimer (<0.60) mg/L FEU Sodium (137-145) mmol/L Potassium (3.5-5.1) mmol/L Chloride (98-107) mmol/L Carbon Dioxide (22-30) mmol/L Anion Gap mmol/L BUN (7-17) mg/dL Creatinine (0.52-1.04) mg/dL Est GFR (CKD-EPI)AfAm (>60 ml/min/1.73 sqM) Est GFR (CKD-EPI)NonAf (>60 ml/min/1.73 sqM) Glucose (74-99) mg/dL Lactic Ac Sepsis Rflx Y Plasma Lactic Acid Rock (0.7-2.0) mmol/L Calcium (8.4-10.2) mg/dL Magnesium (1.6-2.3) mg/dL Total Bilirubin (0.2-1.3) mg/dL AST (14-36) U/L ALT (4-34) U/L Alkaline Phosphatase (38-126) U/L Troponin I (0.000-0.034) ng/mL NT-Pro-B Natriuret Pep pg/mL Total Protein (6.3-8.2) g/dL Albumin (3.5-5.0) g/dL Amylase (30-110) U/L Lipase (23-300) U/L Urine Color Urine Appearance (Clear) Urine pH (5.0-8.0) Ur Specific [place] (1.001-1.035) Urine Protein (Negative) Urine Glucose (UA) (Negative) Urine Ketones (Negative) Urine Blood (Negative) Urine Nitrite (Negative) Urine Bilirubin (Negative) Urine Urobilinogen (<2.0) mg/dL Ur Leukocyte Esterase (Negative) Urine RBC (0-5) /hpf Urine WBC (0-5) /hpf Ur Squamous Epith Cells (0-4) /hpf Urine Bacteria (None) /hpf Hyaline Casts (0-2) /lpf Urine Mucus (None) /hpf Influenza Type A RNA (Not Detectd) Influenza Type B (PCR) (Not Detectd) Disposition Clinical Impression: Fever, Vomiting, Failure to thrive Disposition: ADMITTED IP TO THIS HOSP Condition: Good Is patient prescribed a controlled substance at d/c from ED?: No Time of Disposition: 16:30
[2019-10-27 14:59] LABS: Basophils % (A) 1 %; Eosinophils # (A) 0.1 k/uL (0-0.7); Eosinophils % (A) 1 %; HCT 37.5 % (34.0-46.0); HGB 11.3 gm/dL (11.4-16.0); Hypochromasia Moderate; Lymphocytes # (A) 0.2 k/uL (1.0-4.8); Lymphocytes % (A) 4 %; MCH 24.9 pg (25.0-35.0); MCHC 30.1 g/dL (31.0-37.0); MCV 82.7 fL (80.0-100.0); Mean Platelet Volume 7.6; Monocytes # (A) 0.1 k/uL (0-1.0); Monocytes % (A) 2 %; Neutrophils # (A) 4.9 k/uL (1.3-7.7); Neutrophils % (A) 92 %; Platelet Count 235 k/uL (150-450); RBC 4.53 m/uL (3.80-5.40); RDW 15.1 % (11.5-15.5); WBC 5.4 k/uL (3.8-10.6)
[2019-10-27 15:03] LABS: Albumin 3.9 g/dL (3.5-5.0); Calcium 9.6 mg/dL (8.4-10.2); Total Protein 7.7 g/dL (6.3-8.2)
[2019-10-27] MEDS ORDERED: IBUPROFEN 600 MG TAB PO STA (15:03)
[2019-10-27 15:17] LABS: Appearance,Urine Cloudy (Clear); Bacteria,Urine Occasional /hpf; Bilirubin,Urine Negative (Negative); Blood,Urine Small (Negative); Color,Urine Light Yellow; Glucose,Urine (UA) Negative (Negative); Hyaline Casts,Urine 3 /lpf (0-2); Ketones,Urine Negative (Negative); Leukocyte Esterase,Urine Large (Negative); Mucus,Urine Rare /hpf; Nitrite,Urine Negative (Negative); PH, Urine 5.5 (5.0-8.0); Protein,Urine 2+ (Negative); RBC,Urine 4 /hpf (0-5); Specific Gravity,Urine 1.009 (1.001-1.035); Squamous Epithelial Cell,Urine 32 /hpf (0-4); Urobilinogen,Urine <2.0 mg/dL (<2.0); WBC,Urine 32 /hpf (0-5)
--- NOTE | 2019-10-27 15:57 | XR ---
EXAMINATION TYPE: XR chest 2V DATE OF EXAM: 10/27/2019 COMPARISON: 10/16/2019 HISTORY: Shortness of breath TECHNIQUE: Frontal and lateral views of the chest are obtained. FINDINGS: Scattered senescent parenchymal changes noted. Hyperinflation compatible with COPD. Chronic pulmonary venous decompensation with cardiomegaly without overt failure. No focal pneumonia i dentified. Correlate clinically. Mediastinal structures are stable and grossly unremarkable. No evidence for hilar prominence. Degenerative changes dorsal spine. IMPRESSION: 1. Chronic pulmonary venous decompensation with cardiomegaly without overt failure. No focal pneumoni a identified. Correlate clinically.
[2019-10-27] MEDS ORDERED: MORPHINE SULFATE 4 MG/ML SYRINGE IV PRN (17:43)
[2019-10-27] MEDS ORDERED: HYDROmorphone 0.5 MG/0.5 ML SYRINGE IVP PRN (17:43)
[2019-10-27] MEDS ORDERED: NALOXONE 0.4 MG/ML 1 ML VIAL IV PRN (17:43)
[2019-10-27] MEDS ORDERED: ALPRAZolam 0.25 MG TAB PO PRN (17:43)
--- NOTE | 2019-10-27 17:45 | CT ---
EXAMINATION TYPE: CT chest angio for PE with contrast and with 3-D reconstruction renderings DATE OF EXAM: 10/27/2019 COMPARISON: None HISTORY: Elevated d-dimer. CT DLP: 699.2 mGycm Automated exposure control for dose reduction was used. CONTRAST: CT Chest for pulmonary embolism performed with with IV Contrast, patient injected with 80 m L of Isovue 370. Three-D reconstructions FINDINGS: AIRWAYS, LUNGS, AND PLEURAL SPACES: The airways are unremarkable. There is a dependent groundglass op acity pattern throughout the lung parenchyma bilaterally with bilateral small pleural effusions, grea ter on the right. No focal lung consolidation PLEURAL SPACES: MEDIASTINUM: There is satisfactory enhancement of the pulmonary artery and its branches, there is no CT evidence for pulmonary embolism. There is, however, moderate respiratory motion artifact limiting visualization. There is mild/moderate cardiomegaly. No pericardial effusion. Prominent left and right coronary arter y calcifications are demonstrated. No acute aortic pathology. No adenopathy. OTHER: Redemonstrated 2 cm mean diameter homogeneously hypodense left adrenal nodule, likely represe nting incidental adrenal adenoma. IMPRESSION: 1. No evidence for pulmonary embolism. 2. Findings consistent with a clinical diagnosis of moderate interstitial cardiogenic pulmonary norman a. 3. Incidental left adrenal nodule, likely adenoma.
[2019-10-27] MEDS ORDERED: FUROSEMIDE 10 MG/ML 4 ML VIAL IV STA (18:09)
[2019-10-27] MEDS ORDERED: PIPERACILLIN-TAZOBACTAM 3.375 GM in SODIUM CHLORIDE 0.9% 100 ML IVPB STA (18:10)
[2019-10-27] MEDS: SODIUM CHLORIDE 0.9% 1,000 ML IV SCH (18:29)
[2019-10-27 19:41] LABS: Glucose,Whole Blood 177 mg/dL (75-99)
[2019-10-27] MEDS: cloNIDine HCL 0.2 MG TAB PO SCH (22:25)
[2019-10-27] MEDS: CITALOPRAM HYDROBROMIDE 20 MG TAB PO SCH (22:25)
[2019-10-27] MEDS: APIXABAN 5 MG TAB PO SCH (22:25)
[2019-10-27] MEDS: ATORVASTATIN 80 MG TAB PO SCH (22:25)
[2019-10-27] MEDS: INSULIN ASPART (NovoLOG) 100 UNIT/ML VIAL SQ SCH ×3 (22:26→22:35)
[2019-10-27 22:30] LABS: Glucose,Whole Blood 176 mg/dL (75-99)
[2019-10-27] MEDS: ACETAMINOPHEN TAB 325 MG TAB PO PRN (23:17)
[2019-10-28 00:12] LABS: Glucose,Whole Blood 161 mg/dL (75-99)
--- NOTE | 2019-10-28 01:02 | XR ---
EXAMINATION TYPE: XR chest 1V portable DATE OF EXAM: 10/28/2019 COMPARISON: Yesterday HISTORY: Hypoxemia TECHNIQUE: FINDINGS: Heart is enlarged. There is pulmonary edema. There is poor inspiration. There is some eleva tion of the right diaphragm. Bony thorax appears intact. IMPRESSION: There is some pulmonary edema that is new compared to yesterday and consistent with heart failure. Inspiration decreased compared to yesterday.
[2019-10-28] MEDS ORDERED: FUROSEMIDE 10 MG/ML 4 ML VIAL IV STA (01:24)
[2019-10-28] MEDS: PIPERACILLIN-TAZOBACTAM 3.375 GM in SODIUM CHLORIDE 0.9% 100 ML IVPB SCH ×4 (02:00→23:04)
[2019-10-28] MEDS: ACETAMINOPHEN TAB 325 MG TAB PO PRN (05:41)
[2019-10-28 07:20] LABS: Glucose,Whole Blood 133 mg/dL (75-99)
[2019-10-28] MEDS: cloNIDine HCL 0.2 MG TAB PO SCH ×2 (08:12→20:01)
[2019-10-28] MEDS: SODIUM CHLORIDE 0.9% 1,000 ML IV SCH ×2 (08:12→22:17)
[2019-10-28] MEDS: INSULIN ASPART (NovoLOG) 100 UNIT/ML VIAL SQ SCH ×4 (08:12→20:38)
[2019-10-28] MEDS: APIXABAN 5 MG TAB PO SCH ×2 (08:12→20:01)
[2019-10-28 10:26] VITALS: BMI 45.7
--- NOTE | 2019-10-28 11:10 | P.HPIM ---
History of Present Illness Return visit to the hospital for the patient was here 10 days ago with bilateral lobe pneumonia. States she was improving yesterday developed vomiting and fever. Patient has a history of CVA with left-sided weakness diabetes type 2 morbid obesity Review of Systems Constitutional: Reports weakness Respiratory: Reports dyspnea Gastrointestinal: Reports diarrhea, Reports nausea, Reports vomiting Past Medical History Past Medical History: CVA/TIA, Diabetes Mellitus, Hypertension Additional Past Medical History / Comment(s): cva x3- lt sided weakness, pt states she is unable to walk and is bedbound History of Any Multi-Drug Resistant Organisms: ESBL, MRSA Date of last positivie culture/infection: 07/06/19 MRSA & ESBL-E.coli MDRO Source:: Urine-MRSA & ESBL Past Surgical History: Tubal Ligation Additional Past Surgical History / Comment(s): CAROTID ENDART TO CLEAN OUT NECK ARTERY LEFT; cardiac surgeon chip placed Past Anesthesia/Blood Transfusion Reactions: No Reported Reaction Past Psychological History: Depression Smoking Status: Former smoker Past Alcohol Use History: None Reported Past Drug Use History: None Reported - Past Family History Brother(s) Family Medical History: No Reported History Sister(s) Family Medical History: Diabetes Mellitus Additional Family Medical History / Comment(s): RENAL FAILURE, ABCESSES Medications and Allergies Home Medications Medication Instructions Recorded Confirmed Type metFORMIN HCL [Glucophage] 500 mg PO AC-BID 05/30/16 10/27/19 History amLODIPine [Norvasc] 5 mg PO DAILY #30 tab 06/03/16 10/27/19 Rx cloNIDine HCL [Catapres] 0.2 mg PO BID #60 tab 06/03/16 10/27/19 Rx Atorvastatin [Lipitor] 80 mg PO HS 03/22/19 10/27/19 History Losartan Potassium 100 mg PO DAILY 03/22/19 10/27/19 History Pantoprazole [Protonix] 40 mg PO DAILY 03/22/19 10/27/19 History Citalopram Hydrobromide [CeleXA] 40 mg PO HS 07/06/19 10/27/19 History Apixaban [Eliquis] 5 mg PO BID 10/09/19 10/27/19 History Metoprolol Tartrate [Lopressor] 25 mg PO DAILY 10/09/19 10/27/19 History Allergies Allergy/AdvReac Type Severity Reaction Status Date / Time No Known Allergies Allergy Verified 10/27/19 17:51 Physical Exam Vitals: Vital Signs Temp Pulse Pulse Resp BP BP Pulse Ox 10/28/19 04:45 98.3 F 78 20 120/71 100 10/28/19 00:15 28 H 180/80 92 L 10/28/19 00:00 100.1 F H 83 28 H 192/74 10/27/19 19:40 98.8 F 72 20 148/70 93 L 10/27/19 18:00 100.7 F H 74 16 188/71 94 L 10/27/19 17:00 85 16 192/65 92 L 10/27/19 15:30 97 17 196/76 88 L 10/27/19 14:04 101.0 F H 95 20 206/81 95 Intake and Output 10/27/19 10/28/19 10/28/19 22:59 06:59 14:59 Intake Total 500 100 Output Total 500 Balance 500 -400 Intake: Oral 500 100 Output: Urine 500 Other: Voiding Method Bedpan Diaper # Voids 2 2 2 Weight 113.398 kg 113.398 kg - Constitutional General appearance: mild distress - EENT Eyes: PERRLA Ears: bilateral: normal - Neck Neck: normal ROM - Respiratory Respiratory: left: rales - Cardiovascular Rhythm: regular - Gastrointestinal General gastrointestinal: normal bowel sounds, soft - Integumentary Small pressure ulcer left inner thigh - Neurologic Neurologic: CNII-XII intact - Musculoskeletal Musculoskeletal: left sided weakness - Psychiatric Psychiatric: A&O x's 3, appropriate affect, intact judgment & insight Results CBC & Chem 7: 10/27/19 14:37 10/27/19 14:37 Labs: Abnormal Lab Results - Last 24 Hours (Table) 10/27/19 10/27/19 10/27/19 Range/Units 14:37 14:37 14:40 Hgb 11.3 L (11.4-16.0) gm/dL MCH 24.9 L (25.0-35.0) pg MCHC 30.1 L (31.0-37.0) g/dL Lymphocytes # 0.2 L (1.0-4.8) k/uL D-Dimer (<0.60) mg/L FEU Sodium 136 L (137-145) mmol/L Carbon Dioxide 17 L (22-30) mmol/L Creatinine 1.23 H (0.52-1.04) mg/dL Glucose 181 H (74-99) mg/dL POC Glucose (mg/dL) (75-99) mg/dL Plasma Lactic Acid Rock 3.7 H* (0.7-2.0) mmol/L Magnesium (1.6-2.3) mg/dL Urine Appearance (Clear) Urine Protein (Negative) Urine Blood (Negative) Ur Leukocyte Esterase (Negative) Urine WBC (0-5) /hpf Ur Squamous Epith Cells (0-4) /hpf Urine Bacteria (None) /hpf Hyaline Casts (0-2) /lpf Urine Mucus (None) /hpf 10/27/19 10/27/19 10/27/19 Range/Units 14:40 14:40 15:00 Hgb (11.4-16.0) gm/dL MCH (25.0-35.0) pg MCHC (31.0-37.0) g/dL Lymphocytes # (1.0-4.8) k/uL D-Dimer 0.84 H (<0.60) mg/L FEU Sodium (137-145) mmol/L Carbon Dioxide (22-30) mmol/L Creatinine (0.52-1.04) mg/dL Glucose (74-99) mg/dL POC Glucose (mg/dL) (75-99) mg/dL Plasma Lactic Acid Rock (0.7-2.0) mmol/L Magnesium 1.0 L (1.6-2.3) mg/dL Urine Appearance Cloudy H (Clear) Urine Protein 2+ H (Negative) Urine Blood Small H (Negative) Ur Leukocyte Esterase Large H (Negative) Urine WBC 32 H (0-5) /hpf Ur Squamous Epith Cells 32 H (0-4) /hpf Urine Bacteria Occasional H (None) /hpf Hyaline Casts 3 H (0-2) /lpf Urine Mucus Rare H (None) /hpf 10/27/19 10/27/19 10/27/19 Range/Units 18:33 19:28 22:27 Hgb (11.4-16.0) gm/dL MCH (25.0-35.0) pg MCHC (31.0-37.0) g/dL Lymphocytes # (1.0-4.8) k/uL D-Dimer (<0.60) mg/L FEU Sodium (137-145) mmol/L Carbon Dioxide (22-30) mmol/L Creatinine (0.52-1.04) mg/dL Glucose (74-99) mg/dL POC Glucose (mg/dL) 177 H 176 H (75-99) mg/dL Plasma Lactic Acid Rock 2.8 H* (0.7-2.0) mmol/L Magnesium (1.6-2.3) mg/dL Urine Appearance (Clear) Urine Protein (Negative) Urine Blood (Negative) Ur Leukocyte Esterase (Negative) Urine WBC (0-5) /hpf Ur Squamous Epith Cells (0-4) /hpf Urine Bacteria (None) /hpf Hyaline Casts (0-2) /lpf Urine Mucus (None) /hpf 10/28/19 10/28/19 Range/Units 00:11 07:07 Hgb (11.4-16.0) gm/dL MCH (25.0-35.0) pg MCHC (31.0-37.0) g/dL Lymphocytes # (1.0-4.8) k/uL D-Dimer (<0.60) mg/L FEU Sodium (137-145) mmol/L Carbon Dioxide (22-30) mmol/L Creatinine (0.52-1.04) mg/dL Glucose (74-99) mg/dL POC Glucose (mg/dL) 161 H 133 H (75-99) mg/dL Plasma Lactic Acid [place] (0.7-2.0) mmol/L Magnesium (1.6-2.3) mg/dL Urine Appearance (Clear) Urine Protein (Negative) Urine Blood (Negative) Ur Leukocyte Esterase (Negative) Urine WBC (0-5) /hpf Ur Squamous Epith Cells (0-4) /hpf Urine Bacteria (None) /hpf Hyaline Casts (0-2) /lpf Urine Mucus (None) /hpf Microbiology - Last 24 Hours (Table) 10/27/19 14:37 Blood Culture Gram Stain - Preliminary Blood 10/27/19 14:37 Blood Culture - Final Blood 10/27/19 15:00 Urine Culture - Preliminary Urine,Voided Chest x-ray: report reviewed CT scan - chest: report reviewed Thrombosis Risk Factor Assmnt - Choose All That Apply Any of the Below Risk Factors Present?: Yes Each Risk Factor Represents 2 Points: Age 61-74 years Thrombosis Risk Factor Assessment Total Risk Factor Score: 2 Thrombosis Risk Factor Assessment Level: Low Risk Assessment and Plan Plan: Assessment fever Vomiting Acute on chronic hypoxic respiratory failure History of CVA/TIA with left-sided weakness Diabetes type 2 History of atrial fib paroxysmal with RVR Degenerative disc disease Morbid obesity 45.7 Positive blood culture Plan Consultation with pulmonology and infectious disease
[2019-10-28 12:05] LABS: Glucose,Whole Blood 117 mg/dL (75-99)
[2019-10-28 16:53] LABS: Glucose,Whole Blood 111 mg/dL (75-99)
--- NOTE | 2019-10-28 19:41 | CONS ---
CONSULTATION PULMONARY/CRITICAL CARE CONSULTATION: DATE OF SERVICE: 10/28/2019 This is a 64-year-old female with a history of sepsis, CVA, pneumonia, who presented to the emergency department with complaints of apparently a fever and vomiting. The patient apparently was found to have positive blood cultures for Gram-negative bacilli and was admitted for that reason. The patient had not been feeling well for a couple of days prior to admission. She felt very weak. She was apparently having an elevated body temperature. The patient was seen in the emergency room and was admitted with a diagnosis of possible sepsis. She apparently has been seen by Infectious Diseases and blood cultures apparently did come back today positive for Gram-negative bacilli, yet to be identified. The patient does not have any breathing issues. She denies any shortness of breath, chest tightness, wheezing, cough. She is not coughing up any phlegm. There are no genitourinary complaints. The patient denies any trauma. She denies other complaints, for that matter. Again, no major complaints from the lung standpoint. HOME MEDICATIONS: Reviewed. She is on Glucophage, Lipitor, losartan, Protonix, Celexa, Eliquis, metoprolol, amlodipine, Catapres. ALLERGIES: DENIED. MEDICAL HISTORY: Medical history includes CVA, diabetes, hypertension, atrial fibrillation with RVR, obesity, and prior history of multiple infections with extended-spectrum beta lactamase- producing organisms as well as MRSA. SURGICAL HISTORY: Surgical history includes tubal ligation and carotid endarterectomy. She also had a nuclear monitoring technician placed. SOCIAL HISTORY: Positive for previous tobacco use. Denies any alcohol use or illicit drug use. FAMILY HISTORY: Positive for a sister with diabetes and a brother who is otherwise healthy. REVIEW OF SYSTEMS: CONSTITUTIONAL: Weakness and fever. NEUROLOGIC: Negative. HEENT: Negative. CARDIOVASCULAR: Negative. PULMONARY: Negative. GI: Nausea, vomiting, diarrhea. : Negative. RHEUMATOLOGIC: Negative. IMMUNOLOGIC: Negative. ENDOCRINOLOGIC: Negative. DERMATOLOGIC: Negative. PHYSICAL EXAMINATION: VITAL SIGNS: Current vital signs are reviewed. Temperature is 97.5, heart rate 75, respiratory rate 20, blood pressure 125/65 with mean of 85, and saturations are 100% on high-flow oxygen at 8 L. GENERAL APPEARANCE: Appears in no acute distress. No respiratory distress. No audible wheezing, use of accessory muscles or conversational dyspnea. HEENT: Examination is grossly unremarkable. Nasal oxygen in place. NECK: Supple. Full range of motion. No adenopathy. Neck veins are flat. CARDIOVASCULAR: Examination reveals regular rhythm and rate. Heart rate 75 beats per minute. Heart sounds are distant. No distinct murmur noted. LUNGS: Lungs reveal some bibasilar crackles. No wheezes or rhonchi. Breath sounds are diminished throughout. ABDOMEN: Obese. Bowel sounds are heard. EXTREMITIES: Intact. There is some edema. SKIN: Without rash. NEUROLOGIC: Neurologic examination is brief but nonfocal. Microbiology is showing positive blood cultures for Escherichia coli. This is from October 27. LABS: Reviewed. White count 5.4, hemoglobin 11.3, hematocrit 37.5, platelet count 235,000. D-dimer 0.84. Sodium 136, potassium 5, chloride 107, CO2 17. Anion gap is 12. BUN and creatinine were 14 and 1.23. The rest of the labs look okay. N-terminal proBNP mildly elevated at 1280. Troponins were negative. Urine is dirty. It is cloudy, 2+ protein, small blood, large leukocyte esterase, RBCs are 4, WBCs are 32, bacteria was occasional. Influenza studies were negative. ASSESSMENT: 1. Escherichia coli bacteremia with secondary symptoms of sepsis, including fever and weakness, likely secondary to an Escherichia coli urinary tract infection/urosepsis. 2. History of previous cerebrovascular accident x3. 3. Obesity. 4. History of atrial fibrillation with rapid ventricular response. 5. Prior episode of purulent tracheobronchitis. 6. History of diabetes mellitus. 7. History of hyperlipidemia. 8. History of hypertension. 9. Prior history of both methicillin-resistant Staphylococcus aeruginosa and extended- spectrum beta-lactamase organisms. 10.Status post carotid endarterectomy. PLAN: The patient is currently on appropriate antibiotics. Will continue to follow. Her respiratory status is stable. Her chest x-ray shows some minimal interstitial edema. She is not having any respiratory issues. Will continue to follow. Prognosis is guarded. Her medications are appropriate. She remains currently on Zosyn for suspected E coli urinary tract infection/urosepsis. MMODL / IJN: [id number] /
[2019-10-28] MEDS: CITALOPRAM HYDROBROMIDE 20 MG TAB PO SCH (20:01)
[2019-10-28] MEDS: ATORVASTATIN 80 MG TAB PO SCH (20:01)
[2019-10-28 20:30] LABS: Glucose,Whole Blood 101 mg/dL (75-99)
--- NOTE | 2019-10-28 23:04 | P.CONS ---
History of Present Illness - Reason for Consult Consult date: 10/28/19 Gram Negative Bacteremia Requesting physician: Rhys Holley - Chief Complaint fever and vomiting x 1 day - History of Present Illness Patient is a 64-year-old female who has been brought into the ER at [facility] yesterday with a chief complaint of fever and vomiting apparently the patient has not been feeling well over the last few days and the patient has felt weak and did have a poor appetite patient began to have nonbloody nonbilious vomit is somewhat felt better afterwards no vomiting since then has been noticed patient denies having any abdominal pain S have any diarrhea or constipation denies having any chest pain shortness of breath or cough no urinary symptoms burning or frequency with the symptom had the patient was evaluated by the ER physician on arrival to the ER patient did have a temperature of 101 F patient was not tachycardic white count was normal as well urine was positive influenza serology was negative patient did have a CT angiogram that was negative for PE and it shows features of interstitial infiltrate/CHF patient did have blood cultures drawn which are now coming back positive gram-negative bacilli patient was started on Zosyn infectious disease was consulted for further recommendation regarding antibiotic therapy. Review of Systems Positive point has been mentioned in HPI rest of the systems are negative Past Medical History Past Medical History: CVA/TIA, Diabetes Mellitus, Hypertension Additional Past Medical History / Comment(s): cva x3- lt sided weakness, pt states she is unable to walk and is bedbound History of Any Multi-Drug Resistant Organisms: ESBL, MRSA Year Discovered:: 07/06/19 MRSA & ESBL-E.coli MDRO Source:: Urine-MRSA & ESBL Past Surgical History: Tubal Ligation Additional Past Surgical History / Comment(s): CAROTID ENDART TO CLEAN OUT NECK ARTERY LEFT; court recording monitor chip placed Past Anesthesia/Blood Transfusion Reactions: No Reported Reaction Past Psychological History: Depression Smoking Status: Former smoker Past Alcohol Use History: None Reported Past Drug Use History: None Reported - Past Family History Brother(s) Family Medical History: No Reported History Sister(s) Family Medical History: Diabetes Mellitus Additional Family Medical History / Comment(s): RENAL FAILURE, ABCESSES Medications and Allergies Home Medications Medication Instructions Recorded Confirmed Type metFORMIN HCL [Glucophage] 500 mg PO AC-BID 05/30/16 10/27/19 History amLODIPine [Norvasc] 5 mg PO DAILY #30 tab 06/03/16 10/27/19 Rx cloNIDine HCL [Catapres] 0.2 mg PO BID #60 tab 06/03/16 10/27/19 Rx Atorvastatin [Lipitor] 80 mg PO HS 03/22/19 10/27/19 History Losartan Potassium 100 mg PO DAILY 03/22/19 10/27/19 History Pantoprazole [Protonix] 40 mg PO DAILY 03/22/19 10/27/19 History Citalopram Hydrobromide [CeleXA] 40 mg PO HS 07/06/19 10/27/19 History Apixaban [Eliquis] 5 mg PO BID 10/09/19 10/27/19 History Metoprolol Tartrate [Lopressor] 25 mg PO DAILY 10/09/19 10/27/19 History Allergies Allergy/AdvReac Type Severity Reaction Status Date / Time No Known Allergies Allergy Verified 10/27/19 17:51 Physical Exam Vitals: Vital Signs Temp Pulse Pulse Resp BP BP Pulse Ox 10/28/19 04:45 98.3 F 78 20 120/71 100 10/28/19 00:15 28 H 180/80 92 L 10/28/19 00:00 100.1 F H 83 28 H 192/74 10/27/19 19:40 98.8 F 72 20 148/70 93 L 10/27/19 18:00 100.7 F H 74 16 188/71 94 L 10/27/19 17:00 85 16 192/65 92 L 10/27/19 15:30 97 17 196/76 88 L 10/27/19 14:04 101.0 F H 95 20 206/81 95 Intake and Output 10/27/19 10/28/19 10/28/19 22:59 06:59 14:59 Intake Total 500 100 Output Total 500 Balance 500 -400 Intake: Oral 500 100 Output: Urine 500 Other: Voiding Method Bedpan Diaper # Voids 2 2 2 # Bowel Movements 1 Weight 113.398 kg 113.398 kg GENERAL DESCRIPTION: Elderly female lying in bed, no distress. No tachypnea or accessory muscle of respiration use. HEENT: Shows Pallor , no scleral icterus. Oral mucous membrane is dry. NECK: Trachea central, no thyromegaly. LUNGS: Unlabored breathing. Clear to auscultation anteriorly. No wheeze or crackle. HEART: S1, S2, regular rate and rhythm. ABDOMEN: Soft, no tenderness , guarding or rigidity EXTREMITIES: No edema of feet. SKIN: No rash, no masses palpable. NEUROLOGICAL: The patient is awake, alert, oriented x3, mood and affect normal. Results CBC & Chem 7: 10/27/19 14:37 10/27/19 14:37 Labs: Abnormal Lab Results - Last 24 Hours (Table) 10/27/19 10/27/19 10/27/19 Range/Units 14:37 14:37 14:40 Hgb 11.3 L (11.4-16.0) gm/dL MCH 24.9 L (25.0-35.0) pg MCHC 30.1 L (31.0-37.0) g/dL Lymphocytes # 0.2 L (1.0-4.8) k/uL D-Dimer (<0.60) mg/L FEU Sodium 136 L (137-145) mmol/L Carbon Dioxide 17 L (22-30) mmol/L Creatinine 1.23 H (0.52-1.04) mg/dL Glucose 181 H (74-99) mg/dL POC Glucose (mg/dL) (75-99) mg/dL Plasma Lactic Acid Rock 3.7 H* (0.7-2.0) mmol/L Magnesium (1.6-2.3) mg/dL Urine Appearance (Clear) Urine Protein (Negative) Urine Blood (Negative) Ur Leukocyte Esterase (Negative) Urine WBC (0-5) /hpf Ur Squamous Epith Cells (0-4) /hpf Urine Bacteria (None) /hpf Hyaline Casts (0-2) /lpf Urine Mucus (None) /hpf 10/27/19 10/27/19 10/27/19 Range/Units 14:40 14:40 15:00 Hgb (11.4-16.0) gm/dL MCH (25.0-35.0) pg MCHC (31.0-37.0) g/dL Lymphocytes # (1.0-4.8) k/uL D-Dimer 0.84 H (<0.60) mg/L FEU Sodium (137-145) mmol/L Carbon Dioxide (22-30) mmol/L Creatinine (0.52-1.04) mg/dL Glucose (74-99) mg/dL POC Glucose (mg/dL) (75-99) mg/dL Plasma Lactic Acid Rock (0.7-2.0) mmol/L Magnesium 1.0 L (1.6-2.3) mg/dL Urine Appearance Cloudy H (Clear) Urine Protein 2+ H (Negative) Urine Blood Small H (Negative) Ur Leukocyte Esterase Large H (Negative) Urine WBC 32 H (0-5) /hpf Ur Squamous Epith Cells 32 H (0-4) /hpf Urine Bacteria Occasional H (None) /hpf Hyaline Casts 3 H (0-2) /lpf Urine Mucus Rare H (None) /hpf 10/27/19 10/27/19 10/27/19 Range/Units 18:33 19:28 22:27 Hgb (11.4-16.0) gm/dL MCH (25.0-35.0) pg MCHC (31.0-37.0) g/dL Lymphocytes # (1.0-4.8) k/uL D-Dimer (<0.60) mg/L FEU Sodium (137-145) mmol/L Carbon Dioxide (22-30) mmol/L Creatinine (0.52-1.04) mg/dL Glucose (74-99) mg/dL POC Glucose (mg/dL) 177 H 176 H (75-99) mg/dL Plasma Lactic Acid Rock 2.8 H* (0.7-2.0) mmol/L Magnesium (1.6-2.3) mg/dL Urine Appearance (Clear) Urine Protein (Negative) Urine Blood (Negative) Ur Leukocyte Esterase (Negative) Urine WBC (0-5) /hpf Ur Squamous Epith Cells (0-4) /hpf Urine Bacteria (None) /hpf Hyaline Casts (0-2) /lpf Urine Mucus (None) /hpf 10/28/19 10/28/19 10/28/19 Range/Units 00:11 07:07 11:56 Hgb (11.4-16.0) gm/dL MCH (25.0-35.0) pg MCHC (31.0-37.0) g/dL Lymphocytes # (1.0-4.8) k/uL D-Dimer (<0.60) mg/L FEU Sodium (137-145) mmol/L Carbon Dioxide (22-30) mmol/L Creatinine (0.52-1.04) mg/dL Glucose (74-99) mg/dL POC Glucose (mg/dL) 161 H 133 H 117 H (75-99) mg/dL Plasma Lactic Acid Rock (0.7-2.0) mmol/L Magnesium (1.6-2.3) mg/dL Urine Appearance (Clear) Urine Protein (Negative) Urine Blood (Negative) Ur Leukocyte Esterase (Negative) Urine WBC (0-5) /hpf Ur Squamous Epith Cells (0-4) /hpf Urine Bacteria (None) /hpf Hyaline Casts (0-2) /lpf Urine Mucus (None) /hpf Microbiology - Last 24 Hours (Table) 10/28/19 01:44 Blood Culture Gram Stain - Preliminary Blood 10/28/19 01:44 Blood Culture - Final Blood 10/27/19 14:37 Blood Culture Gram Stain - Preliminary Blood 10/27/19 14:37 Blood Culture - Final Blood 10/27/19 15:00 Urine Culture - Preliminary Urine,Voided Assessment and Plan Assessment: 1-patient presented to the hospital with a fever decreased appetite and vomiting in this patient now with evidence of gram-negative bacteremia source is likely abdominal will need to rule out gallbladder disease versus pyelonephritis as abated have positive UA however no significant urinary symptoms and currently with no other clinical focus of infection. 2-left thigh wound with no evidence of any cellulitis (1) Bacteremia Current Visit: Yes Status: Acute Code(s): R78.81 - BACTEREMIA SNOMED Code(s): 2551296 (2) Febrile illness, acute Current Visit: No Status: Acute Code(s): R50.9 - FEVER, UNSPECIFIED SNOMED Code(s): 164279212 Plan: 1-we will obtain ultrasound abdominal complete looking at both the kidneys and the gallbladder 2-blood cultures will be repeated to document clearance of bacteremia 3-Zosyn 3.375 g every 8 hour 4-Aquacel silver dressing to the left thigh wound change every 48 hour We will follow on clinical condition and cultures to further adjust medication if needed Thank you for this consultation we will follow the patient along with you Time with Patient: Greater than 30
[2019-10-29 07:04] LABS: Glucose,Whole Blood 111 mg/dL (75-99)
[2019-10-29] MEDS: INSULIN ASPART (NovoLOG) 100 UNIT/ML VIAL SQ SCH ×4 (07:12→20:56)
--- NOTE | 2019-10-29 08:13 | US ---
EXAMINATION TYPE: US abdomen complete DATE OF EXAM: 10/29/2019 COMPARISON: multiple renal ultrasounds CLINICAL HISTORY: fever abd pain and vomiting. EXAM MEASUREMENTS: Liver Length: 19.4 cm Gallbladder Wall: 0.4 cm CBD: 0.4 cm Spleen: 17.3 cm Right Kidney: 10.1 x 6.1 x 5.6 cm Left Kidney: 14.3 x 6.1 x 7.2 cm Technically difficult study performed portably on a morbidly obese patient who is paralysed on left s wale and unable to move. Pancreas: not well visualized Liver: limited visualization. Enlarged, limited evaluation, poor penetration of the ultrasound beam Gallbladder: only imaged supine, there is small stones/sludge with shadowing. Evidence for sonographic Cabrera's sign: No CBD: wnl Spleen: enlarged Right Kidney: No hydronephrosis or masses seen Left Kidney: moderate hydro, stones seen. Upper IVC: wnl Abd Aorta: not visualized due to midline bowel gas and body habitus. The liver is enlarged. There is no ascites. IMPRESSION: Limited exam. Hepatosplenomegaly, correlate for hepatic steatosis. Nephrolithiasis on the left, mild to moderate left hydronephrosis. Cholelithiasis, possible tumefactive sludge.
[2019-10-29] MEDS: cloNIDine HCL 0.2 MG TAB PO SCH ×2 (08:19→21:16)
[2019-10-29] MEDS: APIXABAN 5 MG TAB PO SCH ×2 (08:19→21:16)
[2019-10-29] MEDS: PIPERACILLIN-TAZOBACTAM 3.375 GM in SODIUM CHLORIDE 0.9% 100 ML IVPB SCH (08:20)
--- NOTE | 2019-10-29 08:58 | CDI ---
Documentation Clarification Form Date: 10/29/2019 08:29:58 AM From: Kylie Daniels RN CCDS Admit Date: 10/27/2019 05:43:00 PM Patient Name: Joanna Segovia Visit Number: [id number] Discharge Date: ATTENTION: The Clinical Documentation Specialists (CDI) and [facility] Coding Staff appreciate your assistance in clarifying documentation. Please respond to the clarification below the line at the bottom and electronically sign. The CDI & [facility] Coding staff will review the response and follow-up if needed. Please note: Queries are made part of the Legal Health Record. If you have any questions, please contact the author of this message via ITS. Dr. Rhys Holley The patient presents to the ED with a fever, vomiting, diarrhea and low back pain. History/Risk Factors: 64-year-old female who was recently admitted 10 days ago with bilateral lobe pneumonia. Medical History DM; CVA ; HTN; Clinical Indicators: 10/27 Wbc 17; 10/27 Lactic acid: 3.17; 2.8; Blood cultures: 10/27 Escherichia coli; 10/28 Gram neg Bacilli Vitals signs on admission: 206/81 95 101.0 20 95% ra Other Clinical Indicators: ID Consult 10/28 - gram negative bacteremia source is likely abdominal will need to rule out gallbladder disease versus pyelonephritis as abated have positive UA however no significant urinary symptoms and currently with no other clinical focus of infection. Pulmonary/Critical Care Consult: 10/28 Escherichia coli bacteremia with secondary symptoms of sepsis, including fever and weakness, likely secondary to an Escherichia coli urinary tract infection / urosepsis. Treatment Antibiotics: 10/27 Zosyn Ivpb x1; 10/28 Zosyn Ivpb Q 8Hr IV Bolus: 10/27 0.9ns 1L fluid bolus followed by 75cchr In your professional opinion, please clarify if these findings signify one of the following conditions, whether the condition is POA, and cause, if known: * Sepsis POA * Sepsis Ruled Out * Other, please specify * Unable to determine Identify the (suspected) organism SIRS Criteria (2 or more of the following may indicate SIRS): -Temperature < 96.8F (36C) or > 101.0F (38.3C) -Heart Rate > 90 bpm -Respiratory Rate > 20 breaths/min or PaCO2 < 32 mmHg -White Blood Cell Count > 12,000 or < 4,000 cells/mm3 or > 10% bands -Lactate >2.0 mmol/L (>4.0 is equivalent to septic shock) (Last Revision: January 2018) MTDD
[2019-10-29] MEDS ORDERED: ERTAPENEM 1 GM in SODIUM CHLORIDE 0.9% 50 ML IVPB STA (11:49)
--- NOTE | 2019-10-29 12:04 | P.PN ---
Subjective Patient complaining of burning to rectal area. Rectum noted be erythemic. Patient had positive blood cultures gram-negative bacilli E. coli. Urology be consult did patient has left hydro-with stones to left kidney. We'll continue with infectious disease. Patient had consultation with pulmonology no change in treatment Objective - Vital Signs Vital signs: Vital Signs Temp 98.5 F 10/29/19 05:10 Pulse 68 10/29/19 05:10 Resp 20 10/29/19 08:00 BP 104/61 10/29/19 05:10 Pulse Ox 100 10/29/19 05:10 Intake & Output 10/28/19 10/29/19 10/29/19 18:59 06:59 18:59 Intake Total 350 Output Total 1 600 Balance -1 -250 Weight 113.398 kg 129.954 kg Intake: Oral 350 Output: Urine 600 Urine/Stool Mix 1 Other: Voiding Method Bedpan Bedpan Diaper Diaper # Voids 3 # Bowel Movements 1 - Constitutional General appearance: Present: mild distress - EENT Eyes: Present: PERRLA Ears: bilateral: normal - Neck Neck: Present: normal ROM - Respiratory Respiratory: bilateral: diminished - Cardiovascular Rhythm: regular - Gastrointestinal General gastrointestinal: Present: soft - Integumentary Integumentary Comment(s): Skin breakdown left inner thigh. Rectum erythema - Neurologic Neurologic: Present: CNII-XII intact - Musculoskeletal Musculoskeletal: Present: left sided weakness - Psychiatric Psychiatric: Present: A&O x's 3, appropriate affect, intact judgment & insight - Labs CBC & Chem 7: 10/27/19 14:37 10/27/19 14:37 Labs: Abnormal Lab Results - Last 24 Hours (Table) 10/28/19 10/28/19 10/28/19 Range/Units 11:56 16:44 20:24 POC Glucose (mg/dL) 117 H 111 H 101 H (75-99) mg/dL 10/29/19 Range/Units 07:02 POC Glucose (mg/dL) 111 H (75-99) mg/dL Microbiology - Last 24 Hours (Table) 10/27/19 14:37 Blood Culture Gram Stain - Final Blood Blood Culture - Final Escherichia coli 10/28/19 01:44 Blood Culture Gram Stain - Preliminary Blood Blood Culture - Preliminary Gram Neg Bacilli 10/27/19 15:00 Urine Culture - Final Urine,Voided 10/28/19 01:44 Blood Culture - Final Blood Assessment and Plan Plan: Assessment Sepsis positive blood culture E. coli gram-negative bacilli Hypoxia acute on chronic respiratory failure History of CVA/TIA with left-sided weakness Diabetes type 2 Hypertension History of paroxysmal atrial fibrillation with RVR Degenerative disc disease Morbid obesity BMI 52 Left kidney hydronephrosis with stones Plan Patient to continue on Zosyn Consultation with urology Continue consultation with infectious disease Pulmonology as needed
[2019-10-29 12:20] LABS: Glucose,Whole Blood 119 mg/dL (75-99)
--- NOTE | 2019-10-29 12:50 | P.PN ---
Subjective Progress Note Date: 10/29/19 Principal diagnosis: Sepsis secondary to E. coli bacteremia secondary to E. coli UTI The patient is seen today 10/29/2019 in follow-up on the regular medical floor. She is currently sitting up in a chair at the bedside. Awake and alert in no acute distress. Currently on 6 L high flow nasal cannula and maintaining O2 saturations up to 100%. She's afebrile. Hemodynamically stable. Blood cultures positive for E. coli/ESBL. Currently on Zosyn. Objective - Vital Signs Vital signs: Vital Signs Temp 98.5 F 10/29/19 05:10 Pulse 68 10/29/19 05:10 Resp 20 10/29/19 08:00 BP 104/61 10/29/19 05:10 Pulse Ox 100 10/29/19 05:10 Intake & Output 10/28/19 10/29/19 10/29/19 18:59 06:59 18:59 Intake Total 350 Output Total 1 600 Balance -1 -250 Weight 113.398 kg 129.954 kg Intake: Oral 350 Output: Urine 600 Urine/Stool Mix 1 Other: Voiding Method Bedpan Bedpan Diaper Diaper # Voids 3 # Bowel Movements 1 - Exam GENERAL EXAM: Alert, up in a chair, on 6 L high flow nasal cannula, comfortable in no apparent distress. HEAD: Normocephalic. EYES: Normal reaction of pupils, equal size. NOSE: Clear with pink turbinates. THROAT: No erythema or exudates. NECK: No masses, no JVD. CHEST: No chest wall deformity. LUNGS: Equal air entry with crackles in the posterior bases. CVS: S1 and S2 normal with no audible murmur, regular rhythm. ABDOMEN: No hepatosplenomegaly, normal bowel sounds, no guarding or rigidity. SPINE: No scoliosis or deformity SKIN: No rashes CENTRAL NERVOUS SYSTEM: No focal deficits, tone is normal in all 4 extremities. EXTREMITIES: There is no peripheral edema. No clubbing, no cyanosis. Peripheral pulses are intact. - Labs CBC & Chem 7: 10/27/19 14:37 10/27/19 14:37 Labs: Abnormal Lab Results - Last 24 Hours (Table) 10/28/19 10/28/19 10/29/19 Range/Units 16:44 20:24 07:02 POC Glucose (mg/dL) 111 H 101 H 111 H (75-99) mg/dL 10/29/19 Range/Units 12:18 POC Glucose (mg/dL) 119 H (75-99) mg/dL Microbiology - Last 24 Hours (Table) 10/27/19 14:37 Blood Culture Gram Stain - Final Blood Blood Culture - Final Escherichia coli 10/28/19 01:44 Blood Culture Gram Stain - Preliminary Blood Blood Culture - Preliminary Gram Neg Bacilli 10/27/19 15:00 Urine Culture - Final Urine,Voided 10/28/19 01:44 Blood Culture - Final Blood Assessment and Plan Assessment: 1 Sepsis secondary to E. coli bacteremia/ESBL secondary to E. coli urinary tract infection 2 History of previous CVA 3 3 Obesity 4 History of atrial fibrillation with rapid ventricular response 5 Diabetes mellitus 6 Hyperlipidemia 7 Hypertension 8 History of both MRSA and ESBL organisms 9 Hepatosplenomegaly 10 Nephrolithiasis on the left mild to moderate left hydronephrosis 11 Cholelithiasis possible tumefactive sludge Plan The patient was seen and evaluated by Dr. Coto. She is improved today compared to yesterday. ID is on the case. She's been switched to ertapenem. Titrate down the FiO2 as tolerated. Continue the current treatment plan. We'll continue to follow. I, the cosigning physician, performed a history & physical examination of the patient. Lungs sounds with basilar crackles. Maintaining good O2 saturations in the 90s on 6 L high flow nasal. I discussed the assessment and plan of care with my nurse practitioner, Annette Dugan. I attest to the above note as dictated by her.
[2019-10-29] MEDS: SODIUM CHLORIDE 0.9% 1,000 ML IV SCH (13:01)
--- NOTE | 2019-10-29 14:10 | PN ---
PROGRESS NOTE DATE OF SERVICE: 10/29/2019 REASON FOR FOLLOWUP: ESBL E coli bacteremia, source likely urinary. INTERVAL HISTORY: The patient is currently afebrile. Patient is breathing comfortably. The patient denies having any chest pain. No shortness of breath. No cough. No further vomiting has reported, no nausea or vomiting. PHYSICAL EXAMINATION: Blood pressure 104/61 with a pulse of 68, temperature 98.5, she is 100% on 2 L nasal cannula. General description is an elderly female, lying in bed in no distress. RESPIRATORY SYSTEM: Unlabored breathing, clear to auscultation anteriorly. HEART: S1, S2. Regular rate and rhythm. ABDOMEN: Soft, no tenderness. LABS: No new labs have been obtained today. Blood culture with ESBL E coli. Urine came back negative. Ultrasound shows mild left-sided hydronephrosis. DIAGNOSTIC IMPRESSION AND PLAN: Patient with ESBL E coli bacteremia, source likely urinary in this patient who did have mild hydronephrosis on the left side. May benefit from Urology evaluation. Antibiotic has been switched over to Invanz 1 g daily. Blood cultures repeated to document clearance of the bacteremia. She will need IV antibiotic on discharge. This was explained in detail to the family and the case managers. Continue supportive care. MMODL / IJN: [id number] /
[2019-10-29 17:02] LABS: Glucose,Whole Blood 115 mg/dL (75-99)
--- NOTE | 2019-10-29 18:51 | P.GSCN ---
History of Present Illness Consult date: 10/29/19 Reason for Consult: Left hydronephrosis History of present illness: The patient is a 64-year-old female admitted through the emergency room on 10/27/2019 for evaluation of a fever of 101 coupled with nausea, vomiting and low back pain. She had been in the hospital earlier in the month due to pneumonia and had improved with antibiotic treatment. According to the patient's family at the time over the last few days was reduced and at the time of admission the patient had some nausea and vomiting. She has a history of intermittent left flank pain which was reportedly worse earlier in the month but has not been a major issue the last few days. Her white blood count was 5400 which was improved from earlier in the month. BUN/creatinine were 14/1.23 which were also improved. Her urinalysis suggested a urinary tract infection but a urine culture grew greater than 100,000 colonies of mixed organisms consistent with contamination. Blood cultures are growing Escherichia coli which is sensitive to multiple antibiotics. When the patient was in the hospital earlier in the month blood cultures were negative. No urine culture was obtained. A renal ultrasound was obtained yesterday and this showed evidence of left hydronephrosis and a left renal calculus. I was asked to see the patient for further evaluation. The patient has a history of left hydronephrosis which was noted on an ultrasound in 06/2019. She was seen by and a CT scan of the abdomen and pelvis on 07/09/2019 showed evidence of left hydronephrosis suggestive of a chronic ureteropelvic junction obstruction and a nonobstructive 10 mm calculus in the renal pelvis. There was also a small calculus in the lower pole of the left kidney. The patient had gross hematuria at that time. Hematuria has not returned since then. Renal ultrasound was repeated earlier this month and continue to show left hydronephrosis. The patient was reevaluated by Osmani and Lauryn. A MAG3 renogram was done on 10/15 and this showed 74% of the renal function on the right and 26% on the left. The findings were consistent with either chronic obstruction or chronic kidney disease. discussed surgical treatment with the patient and her family at that time and in view of the patient's high risk for any type of surgical intervention further observation was recommended. The patient has no history of recurrent e coli urinary tract infections. She did have an MRSA infection in 06/2019. The patient has been afefebrile for the last 36 hours. She denies any abdominal or flank pain at the present time. Review of Systems - Constitutional Reports anorexia, Reports chills (resolved), Reports fever (resolved) - Cardiovascular Denies shortness of breath - Gastrointestinal Denies abdominal pain - Musculoskeletal Reports low back pain Past Medical History Past Medical History: CVA/TIA (left hemiparalysis), Diabetes Mellitus, Hypertension Additional Past Medical History / Comment(s): cva x3- lt sided weakness, pt states she is unable to walk and is bedbound History of Any Multi-Drug Resistant Organisms: ESBL, MRSA Year Discovered:: 07/06/19 MRSA & ESBL-E.coli MDRO Source:: Urine-MRSA & ESBL Past Surgical History: Tubal Ligation Additional Past Surgical History / Comment(s): CAROTID ENDART TO CLEAN OUT NECK ARTERY LEFT; surveillance system monitor chip placed Past Anesthesia/Blood Transfusion Reactions: No Reported Reaction Past Psychological History: Depression Smoking Status: Former smoker Past Alcohol Use History: None Reported Past Drug Use History: None Reported - Past Family History Brother(s) Family Medical History: No Reported History Sister(s) Family Medical History: Diabetes Mellitus Additional Family Medical History / Comment(s): RENAL FAILURE, ABCESSES Medications and Allergies Home Medications Medication Instructions Recorded Confirmed Type metFORMIN HCL [Glucophage] 500 mg PO AC-BID 05/30/16 10/27/19 History amLODIPine [Norvasc] 5 mg PO DAILY #30 tab 06/03/16 10/27/19 Rx cloNIDine HCL [Catapres] 0.2 mg PO BID #60 tab 06/03/16 10/27/19 Rx Atorvastatin [Lipitor] 80 mg PO HS 03/22/19 10/27/19 History Losartan Potassium 100 mg PO DAILY 03/22/19 10/27/19 History Pantoprazole [Protonix] 40 mg PO DAILY 03/22/19 10/27/19 History Citalopram Hydrobromide [CeleXA] 40 mg PO HS 07/06/19 10/27/19 History Apixaban [Eliquis] 5 mg PO BID 10/09/19 10/27/19 History Metoprolol Tartrate [Lopressor] 25 mg PO DAILY 10/09/19 10/27/19 History Allergies Allergy/AdvReac Type Severity Reaction Status Date / Time No Known Allergies Allergy Verified 10/27/19 17:51 Surgical - Exam Vital Signs Temp Pulse Resp BP Pulse Ox 101.0 F H 95 20 206/81 95 10/27/19 14:04 10/27/19 14:04 10/27/19 14:04 10/27/19 14:04 10/27/19 14:04 - General well developed, well nourished, no distress, obese, other (Appears older than her stated age) - ENT no hearing loss - Respiratory normal respiratory effort - Abdomen Abdomen: soft, non tender, no organomegaly - Neurologic other (Left hemiparesis) Results - Labs 10/27/19 14:37 10/27/19 14:37 Abnormal Lab Results - Last 24 Hours (Table) 10/28/19 10/29/19 10/29/19 Range/Units 20:24 07:02 12:18 POC Glucose (mg/dL) 101 H 111 H 119 H (75-99) mg/dL 10/29/19 Range/Units 16:58 POC Glucose (mg/dL) 115 H (75-99) mg/dL Microbiology - Last 24 Hours (Table) 10/27/19 14:37 Blood Culture Gram Stain - Final Blood Blood Culture - Final Escherichia coli 10/28/19 01:44 Blood Culture Gram Stain - Preliminary Blood Blood Culture - Preliminary Gram Neg Bacilli 10/27/19 15:00 Urine Culture - Final Urine,Voided Assessment and Plan (1) Hydronephrosis of left kidney Narrative/Plan: I reviewed the patient's CT scan performed in 07/27, her most recent renal ultrasound and a MAG3 renogram. Her left hydronephrosis is mostly likely chronic and probably from a ureteropelvic junction obstruction as there is no ureteral dilation. Her left renal calculi are nonobstructive. Surgical treatment would most likely require percutaneous nephrostolithotomy with endopyelotomy or laparoscopic pyeloplasty with removal of the kidney stones. Unfortunately both of these procedures would entail much higher risk than normal in view of the patient's multiple comorbidities. The patient is not symptomatic at the present time. Further observation of the calculus and hydronephrosis is reasonable. I do not feel that placement of a double-J catheter or percutaneous nephrostomy tube for drainage is indicated at this time. Current Visit: Yes Status: Acute Code(s): N13.30 - UNSPECIFIED HYDRONEPHROSIS SNOMED Code(s): 99937540 (2) Bacteremia Narrative/Plan: The patient has Escherichia coli bacteremia. It is unclear if this is from a urinary source. Unfortunately no urine culture was obtained earlier in the month and the urine culture obtained at the time of admission through the emergency room on 10/27/2019 was most likely contaminated. The patient has improved clinically with antibiotics and other sources of the Escherichia coli bacteremia should be considered. Current Visit: Yes Status: Acute Code(s): R78.81 - BACTEREMIA SNOMED Code(s): 6976974
[2019-10-29 20:54] LABS: Glucose,Whole Blood 109 mg/dL (75-99)
[2019-10-29] MEDS: ATORVASTATIN 80 MG TAB PO SCH (21:16)
[2019-10-29] MEDS: CITALOPRAM HYDROBROMIDE 20 MG TAB PO SCH (21:16)
[2019-10-29] MEDS: ACETAMINOPHEN TAB 325 MG TAB PO PRN (22:30)
[2019-10-29] MEDS: HYDROCORTISONE 2.5% RECTAL CREAM 30 GM TUBE RECTAL SCH (22:31)
[2019-10-30] MEDS: SODIUM CHLORIDE 0.9% 1,000 ML IV SCH ×2 (02:05→10:59)
[2019-10-30 07:01] LABS: Glucose,Whole Blood 122 mg/dL (75-99)
[2019-10-30] MEDS: INSULIN ASPART (NovoLOG) 100 UNIT/ML VIAL SQ SCH ×4 (07:06→21:28)
[2019-10-30] MEDS: APIXABAN 5 MG TAB PO SCH ×2 (07:26→20:59)
[2019-10-30] MEDS: HYDROCORTISONE 2.5% RECTAL CREAM 30 GM TUBE RECTAL SCH (07:26)
[2019-10-30] MEDS: cloNIDine HCL 0.2 MG TAB PO SCH ×2 (07:26→20:59)
--- NOTE | 2019-10-30 08:56 | CDI ---
Documentation Clarification Form Date: 10/30/2019 08:34:14 AM From: Kylie Daniels RN CCDS Admit Date: 10/27/2019 05:43:00 PM Patient Name: Joanna Segovia Visit Number: [id number] Discharge Date: ATTENTION: The Clinical Documentation Specialists (CDI) and [facility] Coding Staff appreciate your assistance in clarifying documentation. Please respond to the clarification below the line at the bottom and electronically sign. The CDI & [facility] Coding staff will review the response and follow-up if needed. Please note: Queries are made part of the Legal Health Record. If you have any questions, please contact the author of this message via ITS. Dr. Rhys Holley Patient was admitted with Sepsis, Respiratory Failure and Positive Blood cultures for E coli gram negative bacilli History/Risk Factors: 64-year-old female presents to the ED with nausea, vomiting, diarrhea and fever. Discharged from the hospital ten days ago. Medical History DM; HTN; CVA Clinical Indicators: 10/27/2019 Current BUN 14 /CR 1.23 /GFR 46 04/03/2019 Patients Baseline BUN 14.0/CR 0.9 /GFR 67.0 Treatment: 0.9ns 1L bolus followed by 75cc/hr In order to capture the severity of condition, please clarify if the condition signifies: * Acute Kidney Injury * Acute Kidney Injury on CKD stage please specify if known * CKD Stage 1 (GFR > 90) * CKD Stage 2 (GFR 60-89) * CKD Stage 3 (GFR 30-59) * Acute Kidney Injury Ruled out * Other, please specify * Unable to determine (Last Revision: January 2018) MTDD
--- NOTE | 2019-10-30 10:37 | P.PN ---
Subjective Patient had examination by urology concerning left hydrocele was stones. Infectious disease with recommending home IV therapy ivanz Objective - Vital Signs Vital signs: Vital Signs Temp 97.5 F L 10/30/19 04:34 Pulse 55 L 10/30/19 04:34 Resp 16 10/30/19 04:34 BP 121/47 10/30/19 04:34 Pulse Ox 100 10/30/19 04:34 Intake & Output 10/29/19 10/30/19 10/30/19 18:59 06:59 18:59 Intake Total 1000 Output Total 400 200 Balance 600 -200 Weight 132.5 kg Intake: Oral 1000 Output: Urine 400 200 Other: Voiding Method Bedpan Bedpan Bedpan Diaper Diaper Diaper # Bowel Movements 0 - Constitutional General appearance: Present: mild distress - EENT Eyes: Present: PERRLA Ears: bilateral: normal - Neck Neck: Present: normal ROM - Respiratory Respiratory: bilateral: CTA - Cardiovascular Rhythm: regular - Gastrointestinal General gastrointestinal: Present: normal bowel sounds, soft - Integumentary Integumentary: Present: normal - Neurologic Neurologic: Present: CNII-XII intact - Musculoskeletal Musculoskeletal: Present: left sided weakness - Labs CBC & Chem 7: 10/27/19 14:37 10/27/19 14:37 Labs: Abnormal Lab Results - Last 24 Hours (Table) 10/29/19 10/29/19 10/29/19 Range/Units 12:18 16:58 20:53 POC Glucose (mg/dL) 119 H 115 H 109 H (75-99) mg/dL 10/30/19 Range/Units 06:45 POC Glucose (mg/dL) 122 H (75-99) mg/dL Microbiology - Last 24 Hours (Table) 10/28/19 01:44 Blood Culture Gram Stain - Final Blood Blood Culture - Final Escherichia coli 10/27/19 14:37 Blood Culture Gram Stain - Final Blood Blood Culture - Final Escherichia coli Assessment and Plan Plan: Assessment Sepsis E. coli gram-negative bacilli bacteremia Acute on chronic hypoxic Crestor he failure Left hydronephrosis with kidney stones History of CVA/TIA left-sided weakness diabetes type 2 Hypertension history of atrial fib paroxysmal are with RVR degenerative disc disease Morbid obesity BMI 53 Plan Possible discharge home o ivanz
[2019-10-30 12:18] LABS: Glucose,Whole Blood 127 mg/dL (75-99)
--- NOTE | 2019-10-30 12:58 | P.PN ---
Subjective Progress Note Date: 10/30/19 Principal diagnosis: Sepsis related to ESBL bacteremia shortness of breath The patient is seen today 10/29/2019 in follow-up on the regular medical floor. She is currently sitting up in a chair at the bedside. Awake and alert in no acute distress. Currently on 6 L high flow nasal cannula and maintaining O2 saturations up to 100%. She's afebrile. Hemodynamically stable. Blood cultures positive for E. coli/ESBL. Currently on Zosyn. On 10/30/2019 patient seen in follow-up on the general medical floor, she is sitting up in the recliner, in no acute distress, she denies any difficulty breathing, no cough or congestion, she is currently on 3 L of oxygen were pulse ox in the 100%, she is afebrile, hemodynamically patient is stable, lung sounds are clear, no rhonchi, no wheezing. ID service is following, and current antibiotic coverage is with Invanz for ESBL E. coli bacteremia. Objective - Vital Signs Vital signs: Vital Signs Temp 97.5 F L 10/30/19 04:34 Pulse 55 L 10/30/19 04:34 Resp 16 10/30/19 04:34 BP 121/47 10/30/19 04:34 Pulse Ox 100 10/30/19 04:34 Intake & Output 10/29/19 10/30/19 10/30/19 18:59 06:59 18:59 Intake Total 1000 Output Total 400 200 Balance 600 -200 Weight 132.5 kg Intake: Oral 1000 Output: Urine 400 200 Other: Voiding Method Bedpan Bedpan Bedpan Diaper Diaper Diaper # Voids 4 # Bowel Movements 0 0 - Exam GENERAL EXAM: Alert, very pleasant, 64-year-old obese white female, currently sitting up in the recliner, on 3 L of oxygen with a pulse ox of 100% comfortable in no apparent distress. HEAD: Normocephalic/atraumatic. EYES: Normal reaction of pupils, equal size. Conjunctiva pink, sclera white. NOSE: Clear with pink turbinates. THROAT: No erythema or exudates. NECK: No masses, no JVD, no thyroid enlargement, no adenopathy. CHEST: No chest wall deformity. Symmetrical expansion. LUNGS: Equal air entry with no crackles, wheeze, rhonchi or dullness. CVS: Regular rate and rhythm, normal S1 and S2, no gallops, no murmurs, no rubs ABDOMEN: Soft, nontender. No hepatosplenomegaly, normal bowel sounds, no guarding or rigidity. EXTREMITIES: No clubbing, chronic lower extremity nonpitting edema, no cyanosis, 2+ pulses and upper and lower extremities. MUSCULOSKELETAL: Muscle strength and tone normal. SPINE: No scoliosis or deformity SKIN: No rashes CENTRAL NERVOUS SYSTEM: Alert and oriented -3. No focal deficits, tone is normal in all 4 extremities. PSYCHIATRIC: Alert and oriented -3. Appropriate affect. Intact judgment and insight. - Labs CBC & Chem 7: 10/27/19 14:37 10/27/19 14:37 Labs: Abnormal Lab Results - Last 24 Hours (Table) 10/29/19 10/29/19 10/30/19 Range/Units 16:58 20:53 06:45 POC Glucose (mg/dL) 115 H 109 H 122 H (75-99) mg/dL 10/30/19 Range/Units 12:01 POC Glucose (mg/dL) 127 H (75-99) mg/dL Microbiology - Last 24 Hours (Table) 10/29/19 08:45 Blood Culture - Preliminary Blood No Growth after 24 hours 10/28/19 01:44 Blood Culture Gram Stain - Final Blood Blood Culture - Final Escherichia coli 10/27/19 14:37 Blood Culture Gram Stain - Final Blood Blood Culture - Final Escherichia coli Assessment and Plan Plan: Assessment: 1 Sepsis secondary to E. coli bacteremia/ESBL secondary to E. coli urinary tract infection 2 History of previous CVA 3 3 Obesity 4 History of atrial fibrillation with rapid ventricular response 5 Diabetes mellitus 6 Hyperlipidemia 7 Hypertension 8 History of both MRSA and ESBL organisms 9 Hepatosplenomegaly 10 Nephrolithiasis on the left mild to moderate left hydronephrosis 11 Cholelithiasis possible tumefactive sludge Plan: Antibiotics per ID service recommendations, from pulmonary perspective patient denies any pulmonary complaints, no shortness of breath, no cough or congestion, wean FiO2, patient is breathing is comfortable, breathing and coughing, as piration precautions. [facility]iner service will sign off and follow on as-needed basis I performed a history & physical examination of the patient and discussed their management with my nurse practitioner, Perla Jensen. I reviewed the nurse practitioner's note and agree with the documented findings and plan of care. Lung sounds are positive for clear breath sounds. The findings and the impression was discussed with the patient. I attest to the documentation by the nurse practitioner. Time with Patient: Less than 30
--- NOTE | 2019-10-30 14:15 | P.PN ---
Progress Note - Text acute kidney injury secondary to dehydration
[2019-10-30] MEDS: ERTAPENEM 1 GM in SODIUM CHLORIDE 0.9% 50 ML IVPB SCH (15:26)
[2019-10-30 16:59] LABS: Glucose,Whole Blood 101 mg/dL (75-99)
[2019-10-30] MEDS: CITALOPRAM HYDROBROMIDE 20 MG TAB PO SCH (20:59)
[2019-10-30] MEDS: ATORVASTATIN 80 MG TAB PO SCH (20:59)
[2019-10-30 21:01] LABS: Glucose,Whole Blood 110 mg/dL (75-99)
[2019-10-30 22:41] VITALS: RESP 16
--- NOTE | 2019-10-30 23:41 | PN ---
PROGRESS NOTE DATE OF SERVICE: 10/30/2019 REASON FOR FOLLOWUP: ESBL E coli bacteremia likely urinary source. INTERVAL HISTORY: The patient is currently afebrile. The patient is breathing comfortably. The patient denies having any chest pain. No shortness of breath or cough. No nausea, vomiting, abdominal pain, no diarrhea. PHYSICAL EXAMINATION: Blood pressure is 117/54 with a pulse of 53, temperature 96.8. She is 92% on room air. General description is an elderly female, lying in bed in no distress. Respiratory system: Unlabored breathing. Clear to auscultation anteriorly. Heart S1, S2. Regular rate and rhythm. ABDOMEN: Soft, no tenderness. LAB: Followup blood cultures from yesterday so far negative. DIAGNOSTIC IMPRESSION AND PLAN: Patient with ESBL E coli bacteremia, source is likely pyelonephritis in this patient who did have left-sided hydronephrosis. The patient has been evaluated by Urology and no surgical intervention has been recommended. The patient at this time to continue with Invanz. She will get a mid line tomorrow if the blood culture drawn yesterday has been negative at 48 hours and continue with IV Invanz for 2 weeks with close outpatient followup. Family at the bedside. Questions answered. MMODL / IJN: [id number] /
[2019-10-31] MEDS: HYDROCORTISONE 2.5% RECTAL CREAM 30 GM TUBE RECTAL SCH ×2 (00:47→08:28)
[2019-10-31 05:55] VITALS: BP 150/74; PULSE 57; TEMP 97.7
[2019-10-31] MEDS: SODIUM CHLORIDE 0.9% 1,000 ML IV SCH (06:14)
[2019-10-31 07:43] LABS: Glucose,Whole Blood 115 mg/dL (75-99)
[2019-10-31] MEDS: INSULIN ASPART (NovoLOG) 100 UNIT/ML VIAL SQ SCH ×2 (08:26→12:15)
[2019-10-31] MEDS: APIXABAN 5 MG TAB PO SCH (08:28)
[2019-10-31] MEDS: cloNIDine HCL 0.2 MG TAB PO SCH (08:28)
--- NOTE | 2019-10-31 11:01 | P.DS ---
Providers Date of admission: 10/27/19 17:43 Expected date of discharge: 10/31/19 Attending physician: Rhys Holley Consults: 10/27/19 18:08 Consult Physician Stat Consulting Provider: Ora Arellano Consult Reason/Comments: acute hypoxia Do you want consulting provider notified?: Yes 10/28/19 02:41 Consult Physician Urgent Consulting Provider: Nedra Dutta Consult Reason/Comments: positve blood cultures Do you want consulting provider notified?: Yes 10/29/19 08:55 Consult Physician Urgent Consulting Provider: Richie Keys Consult Reason/Comments: hydronephrosis urosepsisi Do you want consulting provider notified?: Yes Primary care physician: Rhys Holley Hospital Course: 64-year-old female was brought to the emergency room with fever and vomiting. Was found to have positive blood cultures E. coli gram-negative bacilli. Patient was evaluated by infectious disease and set up for home IV Ivanz. Patient was evaluated with pulmonology cleared. Patient was seen by urology for left hydronephrosis and stones will follow up with urology outpatient follow-up Assessment Sepsis E. coli gram-negative bacilli bacteremia positive blood cultures Acute on chronic hypoxic respiratory failure Left hydronephrosis with kidney stones History of CVA with left-sided weakness Diabetes type 2 History of atrial fibrillation paroxysmal with RVR Degenerative disc disease Morbid obesity BMI 53 Acute kidney injury secondary to dehydration Plan Follow-up with family physician Dr. Rhys Holley Follow-up with urology Follow-up with infectious disease home Ivanz Plan - Discharge Summary Discharge Rx Participant: No New Discharge Prescriptions: New Ertapenem [INVanz] 1 gm IVPB Q24H #14 bag Hydrocortisone Pr Cream [Proctosol-Hc 2.5%] 1 applic RECTAL BID #1 applic Continue metFORMIN HCL [Glucophage] 500 mg PO AC-BID amLODIPine [Norvasc] 5 mg PO DAILY #30 tab cloNIDine HCL [Catapres] 0.2 mg PO BID #60 tab Atorvastatin [Lipitor] 80 mg PO HS Pantoprazole [Protonix] 40 mg PO DAILY Losartan Potassium 100 mg PO DAILY Citalopram Hydrobromide [CeleXA] 40 mg PO HS Metoprolol Tartrate [Lopressor] 25 mg PO DAILY Apixaban [Eliquis] 5 mg PO BID Discharge Medication List metFORMIN HCL [Glucophage] 500 mg PO AC-BID 08/22/16 [History] amLODIPine [Norvasc] 5 mg PO DAILY #30 tab 06/03/16 [Rx] cloNIDine HCL [Catapres] 0.2 mg PO BID #60 tab 06/03/16 [Rx] Atorvastatin [Lipitor] 80 mg PO HS 03/22/19 [History] Losartan Potassium 100 mg PO DAILY 03/22/19 [History] Pantoprazole [Protonix] 40 mg PO DAILY 03/22/19 [History] Citalopram Hydrobromide [CeleXA] 40 mg PO HS 07/06/19 [History] Apixaban [Eliquis] 5 mg PO BID 10/09/19 [History] Metoprolol Tartrate [Lopressor] 25 mg PO DAILY 10/09/19 [History] Ertapenem [INVanz] 1 gm IVPB Q24H #14 bag 10/30/19 [Rx] Hydrocortisone Pr Cream [Proctosol-Hc 2.5%] 1 applic RECTAL BID #1 applic 10/31/19 [Rx] Follow up Appointment(s)/Referral(s): Rhys Holley MD [Primary Care Provider] - 1-2 days [facility] [NON-STAFF] - 11/01/19 10:00 am (IV antibiotics at Dr. Dutta's office. Please arrive on 10/31/2019 at 1:00PM.) Nedra Dutta MD [STAFF PHYSICIAN] -
[2019-10-31] MEDS: ERTAPENEM 1 GM in SODIUM CHLORIDE 0.9% 50 ML IVPB SCH (11:47)
[2019-10-31 12:11] LABS: Glucose,Whole Blood 112 mg/dL (75-99)
--- NOTE | 2019-10-31 14:48 | PN ---
PROGRESS NOTE DATE OF SERVICE: 10/31/2019. REASON FOR FOLLOWUP: ESBL E coli bacteremia, source likely urinary. INTERVAL HISTORY: The patient is currently afebrile. The patient is breathing comfortably. The patient says she wants to go home. Denies having any chest pain. No shortness of breath or cough. No nausea. No vomiting. No abdominal pain. No diarrhea. PHYSICAL EXAMINATION: Blood pressure 150/74 with a pulse of 87, temperature 97.7, she is 96% on room air. General description is an elderly female lying in bed in no distress. RESPIRATORY SYSTEM: Unlabored breathing. Clear to auscultation anteriorly. HEART: S1, S2. Regular rate and rhythm. ABDOMEN: Soft. No tenderness. LABS: No new labs have been obtained today. Blood culture repeated on 10/29 has been negative. DIAGNOSTIC IMPRESSION AND PLAN: Patient with ESBL Escherichia coli bacteremia secondary to urinary source. Followup blood culture has been negative. She did get a midline. Continue with Invanz 1 gram daily for two weeks. Weekly monitoring of CBC, BMP, and CRP. Continue with supportive care. Questions and concerns were answered. MMODL / IJN: [id number] /
--- NOTE | 2019-10-31 19:57 | P.PN ---
Progress Note - Text Progress Note Date: 10/31/19 The patient is afebrile and improved greatly over all. White blood count is 5400. BUN/creatinine are 14/1.23. It is planned that the patient will be discharged on IV ertapenem due to her recent pneumonia/UTI. I discussed the patient's hydronephrosis and left renal calculi with Drs. Gilbert and Lauryn and they both feel that further observation with antibiotic therapy is appropriate this time. If the patient develops a febrile infection with left flank pain than left percutaneous nephrostomy tube placement with eventual percutaneous nephrostolithotomy and endopyelotomy may need to be considered. Unfortunately the patient is at very high risk for any type of surgical procedure. I jeff leo that she follow up with sometime in late November.
== END 2019-10-31 14:16 | disposition home health service (06) | DRG 871 ==
LOC: EC 14:03 → 6NMEDSUR 17:43
PROVIDERS: ADMIT Family Medicine; ATTEND Family Medicine
PROC: 05HD33Z Insertion of Infusion Device into Right Cephalic Vein, Percutaneous Approach (ICD-10-PCS; principal; 2019-10-31 08:30)
DX: A41.51 Sepsis due to Escherichia coli [E. coli] (principal); J96.21 Acute and chronic respiratory failure with hypoxia; I69.354 Hemiplegia and hemiparesis following cerebral infarction affecting left non-dominant side; N13.6 Pyonephrosis; N17.9 Acute kidney failure, unspecified; Z68.43 Body mass index [BMI] 50.0-59.9, adult; E11.9 Type 2 diabetes mellitus without complications; E66.01 Morbid (severe) obesity due to excess calories; E78.5 Hyperlipidemia, unspecified; E86.0 Dehydration; F32.9 Major depressive disorder, single episode, unspecified; I10 Essential (primary) hypertension; I48.0 Paroxysmal atrial fibrillation; Z87.01 Personal history of pneumonia (recurrent); K80.20 Calculus of gallbladder without cholecystitis without obstruction; Z79.01 Long term (current) use of anticoagulants; Z79.84 Long term (current) use of oral hypoglycemic drugs; Z79.899 Other long term (current) drug therapy; Z83.3 Family history of diabetes mellitus; Z84.1 Family history of disorders of kidney and ureter; S71.102A Unspecified open wound, left thigh, initial encounter; Z86.14 Personal history of Methicillin resistant Staphylococcus aureus infection; Z87.891 Personal history of nicotine dependence; Z98.51 Tubal ligation status; Z74.01 Bed confinement status; B96.20 Unspecified Escherichia coli [E. coli] as the cause of diseases classified elsewhere
CPT/HCPCS: 36410; 36415; 71045; 71046; 71275; 76700; 76937; 80053; 81001; 82150; 83605; 83690; 83735; 83880; 84484; 85025; 85379; 87040; 87077; 87086; 87186; 87502; 93005; 94760; 96361; 96365; 96375; 99285

== ENCOUNTER 2019-11-06 05:01 | Inpatient (IN) | payer MEDICARE, BC ==
[2019-11-06] MEDS ORDERED: SODIUM CHLORIDE 0.9% 1,000 ML IV STA (05:21)
[2019-11-06 06:09] LABS: Basophils % (A) 0 %; Eosinophils # (A) 0.2 k/uL (0-0.7); Eosinophils % (A) 2 %; HCT 33.3 % (34.0-46.0); HGB 10.2 gm/dL (11.4-16.0); Hypochromasia Moderate; Lymphocytes # (A) 1.2 k/uL (1.0-4.8); Lymphocytes % (A) 17 %; MCH 25.2 pg (25.0-35.0); MCHC 30.6 g/dL (31.0-37.0); MCV 82.3 fL (80.0-100.0); Mean Platelet Volume 8.3; Monocytes # (A) 0.3 k/uL (0-1.0); Monocytes % (A) 4 %; Neutrophils % (A) 75 %; Platelet Count 225 k/uL (150-450); RBC 4.04 m/uL (3.80-5.40); RDW 15.4 % (11.5-15.5); WBC 6.7 k/uL (3.8-10.6)
[2019-11-06 06:16] LABS: Albumin 3.1 g/dL (3.5-5.0); Calcium 8.7 mg/dL (8.4-10.2); Magnesium 1.1 mg/dL (1.6-2.3); Potassium 3.6 mmol/L (3.5-5.1); Total Bilirubin 0.5 mg/dL (0.2-1.3); Total Protein 6.4 g/dL (6.3-8.2)
[2019-11-06 06:21] LABS: INR 1.3 (<1.2); Partial Thromboplastin Time 27.2 sec (22.0-30.0); Prothrombin Time 12.7 sec (9.0-12.0)
--- NOTE | 2019-11-06 06:25 | XR ---
EXAMINATION TYPE: XR chest 2V DATE OF EXAM: 11/06/2019 COMPARISON: 10/28/2019 HISTORY: Hypoxemia. Syncope. TECHNIQUE: FINDINGS: Heart is enlarged. There is pulmonary mild interstitial edema. There are chest leads. There is very slight blunting of the costophrenic angles. IMPRESSION: There is some pulmonary interstitial edema that could relate to mild heart failure. No ch saad compared to last exam.
[2019-11-06 07:42] LABS: Appearance,Urine Cloudy (Clear); Bacteria,Urine Few /hpf; Bilirubin,Urine Negative (Negative); Blood,Urine Moderate (Negative); Budding Yeast,Urine Few /hpf; Color,Urine Yellow; Glucose,Urine (UA) Negative (Negative); Hyaline Casts,Urine 4 /lpf (0-2); Hyphae Yeast, Urine Moderate /hpf; Ketones,Urine Negative (Negative); Leukocyte Esterase,Urine Large (Negative); Mucus,Urine Rare /hpf; Nitrite,Urine Negative (Negative); PH, Urine 5.5 (5.0-8.0); Protein,Urine 1+ (Negative); RBC,Urine 71 /hpf (0-5); Specific Gravity,Urine 1.011 (1.001-1.035); Squamous Epithelial Cell,Urine 1 /hpf (0-4); WBC,Urine 40 /hpf (0-5)
[2019-11-06] MEDS ORDERED: PIPERACILLIN-TAZOBACTAM 3.375 GM in SODIUM CHLORIDE 0.9% 100 ML IVPB STA (07:50)
[2019-11-06] MEDS ORDERED: NALOXONE 0.4 MG/ML 1 ML VIAL IV PRN (07:56)
--- NOTE | 2019-11-06 08:08 | ED ---
General Adult HPI - General Chief complaint: Syncope Stated complaint: Syncope Time Seen by Provider: 11/06/19 05:02 Source: patient, EMS Mode of arrival: EMS Limitations: no limitations - History of Present Illness Initial comments: Joanna is a pleasant 64-year-old female history of stroke, some memory deficits and left-sided weakness. Patient is brought to the ER today via EMS after an apparent syncopal episode at home. Patient states she just doesn't feel good she doesn't know why she is at the hospital. When arrived at bedside to provide further history, patient is currently being treated at the infusion center for recurrent urinary tract infection with IV infusion of antibiotics. She woke up this morning and stated that she needed to use the restroom, daughter placed her on the commode onto the other room, patient then apparently fell to the ground her daughter heard her fall in which a check on her. Daughter reports that for approximately 10 minutes to wake her mom up which concerning for her so EMS was called. EMS reports patient was awake and alert in her baseline upon their arrival. - Related Data Home Medications Medication Instructions Recorded Confirmed metFORMIN HCL [Glucophage] 500 mg PO AC-BID 05/30/16 10/27/19 Atorvastatin [Lipitor] 80 mg PO HS 03/22/19 10/27/19 Losartan Potassium 100 mg PO DAILY 03/22/19 10/27/19 Pantoprazole [Protonix] 40 mg PO DAILY 03/22/19 10/27/19 Citalopram Hydrobromide [CeleXA] 40 mg PO HS 07/06/19 10/27/19 Apixaban [Eliquis] 5 mg PO BID 10/09/19 10/27/19 Metoprolol Tartrate [Lopressor] 25 mg PO DAILY 10/09/19 10/27/19 Previous Rx's Medication Instructions Recorded amLODIPine [Norvasc] 5 mg PO DAILY #30 tab 06/03/16 cloNIDine HCL [Catapres] 0.2 mg PO BID #60 tab 06/03/16 Ertapenem [INVanz] 1 gm IVPB Q24H #14 bag 10/30/19 Hydrocortisone Pr Cream 1 applic RECTAL BID #1 applic 10/31/19 [Proctosol-Hc 2.5%] Allergies Allergy/AdvReac Type Severity Reaction Status Date / Time No Known Allergies Allergy Verified 10/27/19 17:51 Review of Systems ROS Statement: Those systems with pertinent positive or pertinent negative responses have been documented in the HPI. ROS Other: All systems not noted in ROS Statement are negative. Past Medical History Past Medical History: CVA/TIA, Diabetes Mellitus, Hypertension Additional Past Medical History / Comment(s): cva x3- lt sided weakness, pt states she is unable to walk and is bedbound History of Any Multi-Drug Resistant Organisms: ESBL, MRSA Date of last positivie culture/infection: 10/28/19 ESBL 07/06/19 MRSA MDRO Source:: URINE Past Surgical History: Tubal Ligation Additional Past Surgical History / Comment(s): CAROTID ENDART TO CLEAN OUT NECK ARTERY LEFT; monitoring tech chip placed Past Anesthesia/Blood Transfusion Reactions: No Reported Reaction Past Psychological History: Depression Smoking Status: Former smoker Past Alcohol Use History: None Reported Past Drug Use History: None Reported - Past Family History Brother(s) Family Medical History: No Reported History Sister(s) Family Medical History: Diabetes Mellitus Additional Family Medical History / Comment(s): RENAL FAILURE, ABCESSES General Exam Limitations: no limitations Course Vital Signs 11/06/19 11/06/19 05:04 05:14 Temperature 97.7 F Pulse Rate 61 Respiratory 16 Rate Blood Pressure 195/81 O2 Sat by Pulse 84 L 94 L Oximetry EKG Findings - EKG Comments: EKG Findings:: KG was obtained due to complaint of possible syncope, EKG was obtained at 5 AM, rate is 57 rhythm is sinus bradycardia is a normal axis, there are normal intervals, DC 152, dressing 86, QTC is [address] elevations or depressions no evidence of acute ischemia or infarction. Per chart was previously reviewed patient does have history of sinus bradycardia. Medical Decision Making - Medical Decision Making The patient was seen and evaluated history was obtained from patient, EMS and later from family who arrived at bedside. This is a 64-year-old female with multiple medical comorbidities recurrent bacteremia and urinary tract infection currently undergoing treatment with IV antibiotics. Patient is brought to the ER today after an apparent syncopal episode. Labs and imaging were ordered, patient was noted to be bradycardic that this is her baseline. Labs are relatively unremarkable there is no leukocytosis kidney functions at baseline chronic anemia is noted. Urinalysis is consistent with persistent urinary tract infection. Previous microbiology revealed ESBL E. coli. Patient be treated wi th a dose of Zosyn. Patient care was discussed with her primary care physician Dr. Holley who is very familiar with the patient agrees with the plan for admission and evaluation by neurology and cardiology due to syncope in the setting of sinus bradycardia and sick to be with altered mental status. Admission orders and consults were placed. - Lab Data Result diagrams: 11/06/19 05:55 11/06/19 05:55 Lab Results 11/06/19 11/06/19 11/06/19 Range/Units 05:55 05:55 05:55 WBC 6.7 (3.8-10.6) k/uL RBC 4.04 (3.80-5.40) m/uL Hgb 10.2 L (11.4-16.0) gm/dL Hct 33.3 L (34.0-46.0) % MCV 82.3 (80.0-100.0) fL MCH 25.2 (25.0-35.0) pg MCHC 30.6 L (31.0-37.0) g/dL RDW 15.4 (11.5-15.5) % Plt Count 225 (150-450) k/uL Neutrophils % 75 % Lymphocytes % 17 % Monocytes % 4 % Eosinophils % 2 % Basophils % 0 % Neutrophils # 5.0 (1.3-7.7) k/uL Lymphocytes # 1.2 (1.0-4.8) k/uL Monocytes # 0.3 (0-1.0) k/uL Eosinophils # 0.2 (0-0.7) k/uL Basophils # 0.0 (0-0.2) k/uL Hypochromasia Moderate PT 12.7 H (9.0-12.0) sec INR 1.3 H (<1.2) APTT 27.2 (22.0-30.0) sec Sodium 139 (137-145) mmol/L Potassium 3.6 (3.5-5.1) mmol/L Chloride 107 (98-107) mmol/L Carbon Dioxide 22 (22-30) mmol/L Anion Gap 10 mmol/L BUN 12 (7-17) mg/dL Creatinine 1.28 H (0.52-1.04) mg/dL Est GFR (CKD-EPI)AfAm 51 (>60 ml/min/1.73 sqM) Est GFR (CKD-EPI)NonAf 44 (>60 ml/min/1.73 sqM) Glucose 140 H (74-99) mg/dL Calcium 8.7 (8.4-10.2) mg/dL Magnesium 1.1 L (1.6-2.3) mg/dL Total Bilirubin 0.5 (0.2-1.3) mg/dL AST 16 (14-36) U/L ALT 9 (4-34) U/L Alkaline Phosphatase 102 (38-126) U/L Troponin I (0.000-0.034) ng/mL Total Protein 6.4 (6.3-8.2) g/dL Albumin 3.1 L (3.5-5.0) g/dL Urine Color Urine Appearance (Clear) Urine pH (5.0-8.0) Ur Specific [place] (1.001-1.035) Urine Protein (Negative) Urine Glucose (UA) (Negative) Urine Ketones (Negative) Urine Blood (Negative) Urine Nitrite (Negative) Urine Bilirubin (Negative) Urine Urobilinogen (<2.0) mg/dL Ur Leukocyte Esterase (Negative) Urine RBC (0-5) /hpf Urine WBC (0-5) /hpf Urine WBC Clumps (None) /hpf Ur Squamous Epith Cells (0-4) /hpf Urine Bacteria (None) /hpf Hyaline Casts (0-2) /lpf Urine Mucus (None) /hpf Ur Yeast w Hyphae (None) /hpf Urine Yeast (Budding) (None) /hpf 11/06/19 11/06/19 Range/Units 05:55 07:17 WBC (3.8-10.6) k/uL RBC (3.80-5.40) m/uL Hgb (11.4-16.0) gm/dL Hct (34.0-46.0) % MCV (80.0-100.0) fL MCH (25.0-35.0) pg MCHC (31.0-37.0) g/dL RDW (11.5-15.5) % Plt Count (150-450) k/uL Neutrophils % % Lymphocytes % % Monocytes % % Eosinophils % % Basophils % % Neutrophils # (1.3-7.7) k/uL Lymphocytes # (1.0-4.8) k/uL Monocytes # (0-1.0) k/uL Eosinophils # (0-0.7) k/uL Basophils # (0-0.2) k/uL Hypochromasia PT (9.0-12.0) sec INR (<1.2) APTT (22.0-30.0) sec Sodium (137-145) mmol/L Potassium (3.5-5.1) mmol/L Chloride (98-107) mmol/L Carbon Dioxide (22-30) mmol/L Anion Gap mmol/L BUN (7-17) mg/dL Creatinine (0.52-1.04) mg/dL Est GFR (CKD-EPI)AfAm (>60 ml/min/1.73 sqM) Est GFR (CKD-EPI)NonAf (>60 ml/min/1.73 sqM) Glucose (74-99) mg/dL Calcium (8.4-10.2) mg/dL Magnesium (1.6-2.3) mg/dL Total Bilirubin (0.2-1.3) mg/dL AST (14-36) U/L ALT (4-34) U/L Alkaline Phosphatase (38-126) U/L Troponin I <0.012 (0.000-0.034) ng/mL Total Protein (6.3-8.2) g/dL Albumin (3.5-5.0) g/dL Urine Color Yellow Urine Appearance Cloudy H (Clear) Urine pH 5.5 (5.0-8.0) Ur Specific [place] 1.011 (1.001-1.035) Urine Protein 1+ H (Negative) Urine Glucose (UA) Negative (Negative) Urine Ketones Negative (Negative) Urine Blood Moderate H (Negative) Urine Nitrite Negative (Negative) Urine Bilirubin Negative (Negative) Urine Urobilinogen 2.0 (<2.0) mg/dL Ur Leukocyte Esterase Large H (Negative) Urine RBC 71 H (0-5) /hpf Urine WBC 40 H (0-5) /hpf Urine WBC Clumps Moderate H (None) /hpf Ur Squamous Epith Cells 1 (0-4) /hpf Urine Bacteria Few H (None) /hpf Hyaline Casts 4 H (0-2) /lpf Urine Mucus Rare H (None) /hpf Ur Yeast w Hyphae Moderate (None) /hpf Urine Yeast (Budding) Few H (None) /hpf Disposition Clinical Impression: History of CVA (cerebrovascular accident), Obesity, Type 2 diabetes mellitus with other skin ulcer, Urinary tract infection, Syncope, Bradycardia, Debility Disposition: ADMITTED IP TO THIS HOSP Condition: Serious Is patient prescribed a controlled substance at d/c from ED?: No Referrals: Rhys Holley MD [Primary Care Provider] - 1-2 days
[2019-11-06] MEDS ORDERED: LORazepam 2 MG/ML INJ IV STA (08:36)
--- NOTE | 2019-11-06 08:54 | CT ---
EXAMINATION TYPE: CT brain cordelia mao con DATE OF EXAM: 11/06/2019 COMPARISON: 10/12/2019 HISTORY: 64-year-old female with syncope CT DLP: 1582.8 mGycm Automated exposure control for dose reduction was used. Technique: Examination of the head was done in axial plane without intravenous contrast. Coronal and sagittal reconstructions performed. CT of the cervical spine was obtained in axial plane without intravenous injection of contrast mater ial. Coronal and sagittal reformatted images were obtained from the axial views for evaluation of f ractures, spinal alignment and canal. FINDINGS: Head: There is no evidence of acute intracranial hemorrhage, acute ischemic changes, mass, mass-effect, or extra-axial fluid collection. There is no effacement of cerebral sulci or basal subarachnoid cister ns. Moderate central cerebral atrophy with secondary prominence of the ventricular system is unchanged. S imilar asymmetric enlargement right lateral ventricles secondary to right frontoparietal junction enc ephalomalacia. Small area of encephalomalacia again noted at the right occipital parietal junction. Atherosclerotic calcification stable within the M2 segment right middle cerebral artery. No midline s hift. Scattered mild mucosal thickening ethmoid air cells and maxillary sinuses. Mastoid air cells are well pneumatized. Orbits and globes are intact. Cervical spine: No craniocervical junction abnormality, predental space widening, or prevertebral soft tissue swellin g. Advanced degenerative disc disease C4-C5. Posterior disc bulge C3-C4 and C6-C7. Suspect variable mild narrowing of the spinal canal. Alignment is maintained. No acute fracture of the cervical spine. Bulky left lobe of the thyroid gland. Underlying nodule can't be assessed for with thyroid ultrasound . Groundglass changes and consolidation in the visualized upper lungs. Sagittal and coronal reformatted images confirm above findings. COMBINED IMPRESSION: 1. Stable appearance of the brain with central cerebral atrophy and old right frontoparietal and smal ler parieto-occipital junction infarcts. No acute intracranial abnormality seen. 2. The mild ventriculomegaly is likely related to the central atrophy. Correlate to exclude a compone nt of NPH. 3. No acute fracture or malalignment of the cervical spine. Moderate spondylotic changes. 4. Bulky left lobe of the thyroid gland. Dedicated, nonemergent thyroid ultrasound can assess for und erlying nodule. 5. Groundglass changes and airspace disease in the visualized upper lungs. Correlate for pulmonary ed leana or other causes of consolidation.
--- NOTE | 2019-11-06 08:55 | ED ---
Medical Decision Making - Medical Decision Making The patient has been previously admitted in this facility emergency department. She was noted by staff to be having a tonic-clonic seizure. The seizure activity was typical of a grand mal type. The actual activity lasted approximately one to one half minutes. Patient was noted to have visual gauge to the left. He did demonstrate post ictal sonorous respirations afterwards. D iscussion with the family who is present she responded similarly this morning after the presumed syncopal episode where she was unarousable until partially in route by EMS. It is possible that this is the etiology of the event this morning. Patient did get 2 mg of IV Ativan. I did discuss the findings with the family members or present as well as with Dr. Holley. Dr. Ibarra has already been consulted. Review of laboratory work revealed a hypomagnesemia. Patient will get 2 g of IV magnesium. During the seizure activity at did auscultate the heart it did appear to be within normal rate. She did demonstrate equal pulses during the event. - Lab Data Result diagrams: 11/06/19 05:55 11/06/19 05:55 Lab Results 11/06/19 11/06/19 11/06/19 Range/Units 05:55 05:55 05:55 WBC 6.7 (3.8-10.6) k/uL RBC 4.04 (3.80-5.40) m/uL Hgb 10.2 L (11.4-16.0) gm/dL Hct 33.3 L (34.0-46.0) % MCV 82.3 (80.0-100.0) fL MCH 25.2 (25.0-35.0) pg MCHC 30.6 L (31.0-37.0) g/dL RDW 15.4 (11.5-15.5) % Plt Count 225 (150-450) k/uL Neutrophils % 75 % Lymphocytes % 17 % Monocytes % 4 % Eosinophils % 2 % Basophils % 0 % Neutrophils # 5.0 (1.3-7.7) k/uL Lymphocytes # 1.2 (1.0-4.8) k/uL Monocytes # 0.3 (0-1.0) k/uL Eosinophils # 0.2 (0-0.7) k/uL Basophils # 0.0 (0-0.2) k/uL Hypochromasia Moderate PT 12.7 H (9.0-12.0) sec INR 1.3 H (<1.2) APTT 27.2 (22.0-30.0) sec Sodium 139 (137-145) mmol/L Potassium 3.6 (3.5-5.1) mmol/L Chloride 107 (98-107) mmol/L Carbon Dioxide 22 (22-30) mmol/L Anion Gap 10 mmol/L BUN 12 (7-17) mg/dL Creatinine 1.28 H (0.52-1.04) mg/dL Est GFR (CKD-EPI)AfAm 51 (>60 ml/min/1.73 sqM) Est GFR (CKD-EPI)NonAf 44 (>60 ml/min/1.73 sqM) Glucose 140 H (74-99) mg/dL Calcium 8.7 (8.4-10.2) mg/dL Magnesium 1.1 L (1.6-2.3) mg/dL Total Bilirubin 0.5 (0.2-1.3) mg/dL AST 16 (14-36) U/L ALT 9 (4-34) U/L Alkaline Phosphatase 102 (38-126) U/L Troponin I (0.000-0.034) ng/mL Total Protein 6.4 (6.3-8.2) g/dL Albumin 3.1 L (3.5-5.0) g/dL Urine Color Urine Appearance (Clear) Urine pH (5.0-8.0) Ur Specific [place] (1.001-1.035) Urine Protein (Negative) Urine Glucose (UA) (Negative) Urine Ketones (Negative) Urine Blood (Negative) Urine Nitrite (Negative) Urine Bilirubin (Negative) Urine Urobilinogen (<2.0) mg/dL Ur Leukocyte Esterase (Negative) Urine RBC (0-5) /hpf Urine WBC (0-5) /hpf Urine WBC Clumps (None) /hpf Ur Squamous Epith Cells (0-4) /hpf Urine Bacteria (None) /hpf Hyaline Casts (0-2) /lpf Urine Mucus (None) /hpf Ur Yeast w Hyphae (None) /hpf Urine Yeast (Budding) (None) /hpf 11/06/19 11/06/19 Range/Units 05:55 07:17 WBC (3.8-10.6) k/uL RBC (3.80-5.40) m/uL Hgb (11.4-16.0) gm/dL Hct (34.0-46.0) % MCV (80.0-100.0) fL MCH (25.0-35.0) pg MCHC (31.0-37.0) g/dL RDW (11.5-15.5) % Plt Count (150-450) k/uL Neutrophils % % Lymphocytes % % Monocytes % % Eosinophils % % Basophils % % Neutrophils # (1.3-7.7) k/uL Lymphocytes # (1.0-4.8) k/uL Monocytes # (0-1.0) k/uL Eosinophils # (0-0.7) k/uL Basophils # (0-0.2) k/uL Hypochromasia PT (9.0-12.0) sec INR (<1.2) APTT (22.0-30.0) sec Sodium (137-145) mmol/L Potassium (3.5-5.1) mmol/L Chloride (98-107) mmol/L Carbon Dioxide (22-30) mmol/L Anion Gap mmol/L BUN (7-17) mg/dL Creatinine (0.52-1.04) mg/dL Est GFR (CKD-EPI)AfAm (>60 ml/min/1.73 sqM) Est GFR (CKD-EPI)NonAf (>60 ml/min/1.73 sqM) Glucose (74-99) mg/dL Calcium (8.4-10.2) mg/dL Magnesium (1.6-2.3) mg/dL Total Bilirubin (0.2-1.3) mg/dL AST (14-36) U/L ALT (4-34) U/L Alkaline Phosphatase (38-126) U/L Troponin I <0.012 (0.000-0.034) ng/mL Total Protein (6.3-8.2) g/dL Albumin (3.5-5.0) g/dL Urine Color Yellow Urine Appearance Cloudy H (Clear) Urine pH 5.5 (5.0-8.0) Ur Specific [place] 1.011 (1.001-1.035) Urine Protein 1+ H (Negative) Urine Glucose (UA) Negative (Negative) Urine Ketones Negative (Negative) Urine Blood Moderate H (Negative) Urine Nitrite Negative (Negative) Urine Bilirubin Negative (Negative) Urine Urobilinogen 2.0 (<2.0) mg/dL Ur Leukocyte Esterase Large H (Negative) Urine RBC 71 H (0-5) /hpf Urine WBC 40 H (0-5) /hpf Urine WBC Clumps Moderate H (None) /hpf Ur Squamous Epith Cells 1 (0-4) /hpf Urine Bacteria Few H (None) /hpf Hyaline Casts 4 H (0-2) /lpf Urine Mucus Rare H (None) /hpf Ur Yeast w Hyphae Moderate (None) /hpf Urine Yeast (Budding) Few H (None) /hpf Disposition Clinical Impression: History of CVA (cerebrovascular accident), Obesity, Type 2 diabetes mellitus with other skin ulcer, Urinary tract infection, Syncope, Bradycardia, Debility, New onset seizure, Hypomagnesemia Disposition: ADMITTED IP TO THIS [facility] Condition: Serious Referrals: Rhys Holley MD [Primary Care Provider] - 1-2 days
[2019-11-06] MEDS: MAGNESIUM SULFATE-D5W PMX 1 GM in DEXTROSE/WATER 1 100ML.BAG IVPB SCH ×2 (10:54→14:38)
--- NOTE | 2019-11-06 11:29 | P.HPIM ---
History of Present Illness 64-year-old female was brought into the emergency room after episode of falling from commode chair. Patient is on dialysis for intermittent atrial fibrillation. Patient has a history of CVA with left-sided weakness. Patient has morbid obesity. History of diabetes type 2. Patient has been treated with IV Ancef outpatient for resistant urinary tract infection. Patient had these seizure grand mal in the emergency room neurology notified Review of Systems Constitutional: Reports fatigue Integumentary: Reports wounds Neurological: Reports head injury, Reports paralysis, Reports seizures Past Medical History Past Medical History: Atrial Fibrillation, CVA/TIA, Diabetes Mellitus, Hypertension Additional Past Medical History / Comment(s): cva x3- lt sided weakness, pt s tates she is unable to walk and is bedbound History of Any Multi-Drug Resistant Organisms: ESBL, MRSA Date of last positivie culture/infection: 10/28/19 ESBL 07/06/19 MRSA MDRO Source:: URINE Past Surgical History: Tubal Ligation Additional Past Surgical History / Comment(s): CAROTID ENDART TO CLEAN OUT NECK ARTERY LEFT; care management coordinator chip placed Past Anesthesia/Blood Transfusion Reactions: No Reported Reaction Past Psychological History: Depression Smoking Status: Former smoker Past Alcohol Use History: None Reported Past Drug Use History: None Reported - Past Family History Brother(s) Family Medical History: No Reported History Sister(s) Family Medical History: Diabetes Mellitus Additional Family Medical History / Comment(s): RENAL FAILURE, ABCESSES Medications and Allergies Home Medications Medication Instructions Recorded Confirmed Type metFORMIN HCL [Glucophage] 500 mg PO AC-BID 05/30/16 11/06/19 History amLODIPine [Norvasc] 5 mg PO DAILY #30 tab 06/03/16 11/06/19 Rx cloNIDine HCL [Catapres] 0.2 mg PO BID #60 tab 06/03/16 11/06/19 Rx Atorvastatin [Lipitor] 80 mg PO HS 03/22/19 11/06/19 History Losartan Potassium 100 mg PO DAILY 03/22/19 11/06/19 History Pantoprazole [Protonix] 40 mg PO DAILY 03/22/19 11/06/19 History Citalopram Hydrobromide [CeleXA] 40 mg PO HS 07/06/19 11/06/19 History Apixaban [Eliquis] 5 mg PO BID 10/09/19 11/06/19 History Metoprolol Tartrate [Lopressor] 25 mg PO DAILY 10/09/19 11/06/19 History Ertapenem [INVanz] 1 gm IVPB Q24H #14 bag 10/30/19 11/06/19 Rx Hydrocortisone Pr Cream 1 applic RECTAL BID #1 applic 10/31/19 11/06/19 Rx [Proctosol-Hc 2.5%] Allergies Allergy/AdvReac Type Severity Reaction Status Date / Time No Known Allergies Allergy Verified 11/06/19 08:42 Physical Exam Vitals: Vital Signs Temp Pulse Resp BP Pulse Ox 11/06/19 10:04 60 20 96 11/06/19 09:30 63 20 180/88 95 11/06/19 09:04 66 22 200/80 100 11/06/19 08:46 85 20 197/122 93 L 11/06/19 05:14 94 L 11/06/19 05:04 97.7 F 61 16 195/81 84 L Intake and Output 11/05/19 11/06/19 11/06/19 22:59 06:59 14:59 Other: Weight 126.099 kg - Constitutional General appearance: mild distress - EENT Eyes: PERRLA Ears: bilateral: normal - Neck Neck: normal ROM - Respiratory Respiratory: bilateral: CTA - Cardiovascular Rhythm: regular - Gastrointestinal General gastrointestinal: soft - Integumentary Skin breakdown left inner thigh erythemic rectum ecchymosis to for had noted - Neurologic Neurologic: CNII-XII intact - Musculoskeletal Musculoskeletal: left sided weakness Results CBC & Chem 7: 11/06/19 05:55 11/06/19 05:55 Labs: Abnormal Lab Results - Last 24 Hours (Table) 11/06/19 11/06/19 11/06/19 Range/Units 05:55 05:55 05:55 Hgb 10.2 L (11.4-16.0) gm/dL Hct 33.3 L (34.0-46.0) % MCHC 30.6 L (31.0-37.0) g/dL PT 12.7 H (9.0-12.0) sec INR 1.3 H (<1.2) Creatinine 1.28 H (0.52-1.04) mg/dL Glucose 140 H (74-99) mg/dL Magnesium 1.1 L (1.6-2.3) mg/dL Albumin 3.1 L (3.5-5.0) g/dL Urine Appearance (Clear) Urine Protein (Negative) Urine Blood (Negative) Ur Leukocyte Esterase (Negative) Urine RBC (0-5) /hpf Urine WBC (0-5) /hpf Urine WBC Clumps (None) /hpf Urine Bacteria (None) /hpf Hyaline Casts (0-2) /lpf Urine Mucus (None) /hpf Urine Yeast (Budding) (None) /hpf 11/06/19 Range/Units 07:17 Hgb (11.4-16.0) gm/dL Hct (34.0-46.0) % MCHC (31.0-37.0) g/dL PT (9.0-12.0) sec INR (<1.2) Creatinine (0.52-1.04) mg/dL Glucose (74-99) mg/dL Magnesium (1.6-2.3) mg/dL Albumin (3.5-5.0) g/dL Urine Appearance Cloudy H (Clear) Urine Protein 1+ H (Negative) Urine Blood Moderate H (Negative) Ur Leukocyte Esterase Large H (Negative) Urine RBC 71 H (0-5) /hpf Urine WBC 40 H (0-5) /hpf Urine WBC Clumps Moderate H (None) /hpf Urine Bacteria Few H (None) /hpf Hyaline Casts 4 H (0-2) /lpf Urine Mucus Rare H (None) /hpf Urine Yeast (Budding) Few H (None) /hpf Chest x-ray: report reviewed CT Scan - head: report reviewed Assessment and Plan Plan: Assessment Syncope seizure activity Hypo-magnesium History of CVA with left-sided weakness Obesity morbid BMI 49 Diabetes type 2 Resistant urinary tract infection on Ivanz Bradycardia Medical debility Anemia chronic disease Atrial fibrillation intermittent on a course Plan Started on antiseizure medicine continue consultation with neurology cardiology consultation radiating syncope and bradycardia
[2019-11-06] MEDS ORDERED: ERTAPENEM 1 GM VIAL IVPB SCH (11:30)
[2019-11-06] MEDS: levETIRAcetam IV 1,000 MG in SALINE 1 100ML.BAG IVPB SCH ×2 (11:41→21:49)
--- NOTE | 2019-11-06 15:21 | XR ---
EXAMINATION TYPE: XR chest 1V DATE OF EXAM: 11/06/2019 COMPARISON: Prior chest x-ray 11/06/2019 HISTORY: Difficulty breathing TECHNIQUE: Single frontal view of the chest is obtained. FINDINGS: Patient is rotated. There are overlying cardiac leads. Airspace disease is suspected bilat erally. Heart is enlarged. No evident pneumothorax or pleural effusion. IMPRESSION: Rotated exam. Correlate for congestive heart failure. Follow-up recommended.
--- NOTE | 2019-11-06 15:25 | XR ---
Left hand HISTORY: Pain 3 views of the left hand Bone mineralization is reduced. Osteoarthritic changes are present, there is joint space loss at the interphalangeal joint of the first digit, distal interphalangeal joints, proximal interphalangeal emmett nts. Alignment is maintained. There is marginal spurring present. Remodeling present at the radiocarp al joint. There is soft tissue swelling. Digits are flexed which may limit sensitivity. Vascular calc ifications are noted incidentally. IMPRESSION: Correlate for cellulitis, edema. Osteoarthritis and osteopenia. Consider underlying diabe kit, peripheral vascular occlusive disease, hypercalcemic states.
--- NOTE | 2019-11-06 15:27 | XR ---
Left foot HISTORY: Pain 2 views of left foot Bone mineralization is reduced. There is marked soft tissue swelling with some associated lucency. Va scular arterial calcifications are present. Alignment and joint spaces are maintained. There is a alfonzo ntar calcaneal spur. No fracture or dislocation. IMPRESSION: Soft tissue swelling, correlate for diabetes, cellulitis or edema, difficult to exclude a bscess. No periostitis evident to suggest osteomyelitis. Osteopenia.
[2019-11-06] MEDS: ERTAPENEM 1 GM in SODIUM CHLORIDE 0.9% 50 ML IVPB SCH (16:12)
[2019-11-06] MEDS ORDERED: ACETAMINOPHEN IV (For NPO) 1,000 MG in EMPTY BAG 1 BAG IVPB SCH (18:00)
[2019-11-06] MEDS: metFORMIN 500 MG TAB PO SCH (18:21)
[2019-11-06] MEDS ORDERED: ACETAMINOPHEN IV (For NPO) 1,000 MG in EMPTY BAG 1 BAG IVPB PRN (18:27)
[2019-11-06 18:31] LABS: Glucose,Whole Blood 118 mg/dL (75-99)
[2019-11-06] MEDS: INSULIN ASPART (NovoLOG) 100 UNIT/ML VIAL SQ SCH ×2 (18:35→21:53)
[2019-11-06] MEDS: cloNIDine HCL 0.2 MG TAB PO SCH (21:47)
[2019-11-06] MEDS: HYDROCORTISONE 2.5% RECTAL CREAM 30 GM TUBE RECTAL SCH (21:47)
[2019-11-06] MEDS: CITALOPRAM HYDROBROMIDE 20 MG TAB PO SCH (21:47)
[2019-11-06] MEDS: APIXABAN 5 MG TAB PO SCH (21:47)
[2019-11-06] MEDS: ATORVASTATIN 80 MG TAB PO SCH (21:47)
[2019-11-06 21:53] LABS: Glucose,Whole Blood 109 mg/dL (75-99)
--- NOTE | 2019-11-06 21:55 | P.CNNES ---
History of Present Illness Consult date: 11/06/19 Reason for Consult: syncope History of Present Illness: HISTORY OF PRESENT ILLNESS: Thank you for allowing me to evaluate Ms. Joanna Segovia. Ms. Segovia is a 64 year-old woman with PMHx of DM, HTN, stroke (with residual L-sided weakness), depression, who presented to [facility] for an episode of loss of consciousness. Sister and daughter at bedside. States that she had helped the patient onto the commode this morning when patient suddenly lost consciousness, had to be brought down to the floor. Patient did not have any jerking or abnormal movements, but there was some foaming in the mouth and also had bowel incontinence. Daughter reports that patient recently was admitted to the hospital twice, once for UTI and once for "blood infection," for which patient has been on home infusion of antibiotics for 3 days now. Did not have any reaction to these infusions. Patient has never had an episode like this bef ore. Patient had 3 strokes in the past, first in the 90s and most recently 3-4 years ago where pt's LUE/LLE was affected. Patient was recently started on apixaban as she was found with atrial fibrillation. PAST MEDICAL HISTORY: DM, HTN, stroke (with residual L-sided weakness), depression, atrial fibrillation. PAST SURGICAL HISTORY: tubal ligation HOME MEDICATIONS: Metformin, atorvastatin, losartan, protonix, citalopram, apixaban, metoprolol ALLERGIES: NKDA SOCIAL HISTORY: Former smoker FAMILY HISTORY: Sister with DM REVIEW OF SYSTEMS: The 14 systems are reviewed and no additional points are identified compared to the review of systems documented history and physical PHYSICAL EXAMINATION: VITAL SIGNS: T 97.7 HR 61 RR 16 BP 195/81 O2 sat 94% on 4L via O2->100% on nonrebreather GEN.: obese, with non-rebreather mask on, patient drowsy/having difficulty breathing, somewhat cooperative HEENT: NCAT, sclera without icterus NECK: Supple SKIN AND EXTREMITIES: Warm to touch, no edema NEURO: MENTAL STATUS: Patient alert and oriented to self only. Protrudes tongue on command and moves RUE and RLE but having difficulty breathing and not able to answer most questions or follow other commands. CRANIAL NERVES II THROUGH XII: II: Pupils are equal and reactive to light symmetrically. III, IV, : No ptosis. Extraocular movements full. VII. difficult to assess facial asymmetry due to positioning and non-rebreather mask. XII: Tongue midline without fasciculation or atrophy MOTOR/SENSORY: Normal bulk. Antigravity of RUE. able to try to bend R knee and move R foot readily. LLE withdraws during babinski but minimally REFLEXES: 1+ throughout. R toes are downgoing. L toes are upgoing COORDINATION/GAIT: deferred DIAGNOSTIC TESTING: LABORATORY: WBC 6.7 Hgb 10.2 Platelet 225 Na 139. K 3.6 Cl 107 CO2 22 BU 12 Cr 1.28 glucose 140 AST 16 ALT 9 AlkPhos 102 troponin <0.012 urinalysis large LE, 40 WBC IMAGING: CT Head and c-spine w/o contrast 11/06/2019: Stable appearance of brain and cerebral atrophy. Old R frontoparietal and smaller parieto-occipital junction infarct. No acute intracranial abnormality seen. No acute fracture. ASSESSMENT: 64 year-old woman with PMHx of DM, HTN, stroke (with residual L-sided weakness), depression, who presented to [facility] for an episode of loss of consciousness. Patient with positive urinalysis, likely infection that decreased patient's seizure threshold in the setting of patient having history of cortical stroke. Risk of seizure high in this patient. RECOMMENDATIONS: 1. Routine EEG 2. will start Keppra 1000mg IV BID 3. seizure precaution 4. Ativan 2mg IV PRN for seizure-like activity 5. Neurology will continue to follow Past Medical History Past Medical History: CVA/TIA, Diabetes Mellitus, Hypertension Additional Past Medical History / Comment(s): cva x3- lt sided weakness, pt states she is unable to walk and is bedbound History of Any Multi-Drug Resistant Organisms: ESBL, MRSA Date of last positivie culture/infection: 10/28/19 ESBL 07/06/19 MRSA MDRO Source:: URINE Past Surgical History: Tubal Ligation Additional Past Surgical History / Comment(s): CAROTID ENDART TO CLEAN OUT NECK ARTERY LEFT; case monitor chip placed Past Anesthesia/Blood Transfusion Reactions: No Reported Reaction Past Psychological History: Depression Smoking Status: Former smoker Past Alcohol Use History: None Reported Past Drug Use History: None Reported - Past Family History Brother(s) Family Medical History: No Reported History Sister(s) Family Medical History: Diabetes Mellitus Additional Family Medical History / Comment(s): RENAL FAILURE, ABCESSES Mother Additional Family Medical History / Comment(s): Brain Aneurism. Father Family Medical History: Diabetes Mellitus Medications and Allergies Home Medications Medication Instructions Recorded Confirmed Type metFORMIN HCL [Glucophage] 500 mg PO AC-BID 05/30/16 11/06/19 History amLODIPine [Norvasc] 5 mg PO DAILY #30 tab 06/03/16 11/06/19 Rx cloNIDine HCL [Catapres] 0.2 mg PO BID #60 tab 06/03/16 11/06/19 Rx Atorvastatin [Lipitor] 80 mg PO HS 03/22/19 11/06/19 History Losartan Potassium 100 mg PO DAILY 03/22/19 11/06/19 History Pantoprazole [Protonix] 40 mg PO DAILY 03/22/19 11/06/19 History Citalopram Hydrobromide [CeleXA] 40 mg PO HS 07/06/19 11/06/19 History Apixaban [Eliquis] 5 mg PO BID 10/09/19 11/06/19 History Metoprolol Tartrate [Lopressor] 25 mg PO DAILY 10/09/19 11/06/19 History Ertapenem [INVanz] 1 gm IVPB Q24H #14 bag 10/30/19 11/06/19 Rx Hydrocortisone Pr Cream 1 applic RECTAL BID #1 applic 10/31/19 11/06/19 Rx [Proctosol-Hc 2.5%] Allergies Allergy/AdvReac Type Severity Reaction Status Date / Time No Known Allergies Allergy Verified 11/06/19 08:42 Physical Examination - Vital Signs Vital Signs: Vital Signs Temp Pulse Resp BP Pulse Ox 11/06/19 09:04 66 22 200/80 100 11/06/19 08:46 85 20 197/122 93 L 11/06/19 05:14 94 L 11/06/19 05:04 97.7 F 61 16 195/81 84 L Intake and Output 11/05/19 11/06/19 11/06/19 22:59 06:59 14:59 Other: Weight 126.099 kg Results - Laboratory Findings CBC and BMP: 11/06/19 05:55 11/06/19 05:55 Abnormal Lab Findings: Abnormal Labs 11/06/19 11/06/19 11/06/19 05:55 05:55 05:55 Hgb 10.2 L Hct 33.3 L MCHC 30.6 L PT 12.7 H INR 1.3 H Creatinine 1.28 H Glucose 140 H Magnesium 1.1 L Albumin 3.1 L Urine Appearance Urine Protein Urine Blood Ur Leukocyte Esterase Urine RBC Urine WBC Urine WBC Clumps Urine Bacteria Hyaline Casts Urine Mucus Urine Yeast (Budding) 11/06/19 07:17 Hgb Hct MCHC PT INR Creatinine Glucose Magnesium Albumin Urine Appearance Cloudy H Urine Protein 1+ H Urine Blood Moderate H Ur Leukocyte Esterase Large H Urine RBC 71 H Urine WBC 40 H Urine WBC Clumps Moderate H Urine Bacteria Few H Hyaline Casts 4 H Urine Mucus Rare H Urine Yeast (Budding) Few H
[2019-11-07 06:18] LABS: Glucose,Whole Blood 117 mg/dL (75-99)
[2019-11-07] MEDS: INSULIN ASPART (NovoLOG) 100 UNIT/ML VIAL SQ SCH ×4 (06:21→21:03)
[2019-11-07] MEDS: metFORMIN 500 MG TAB PO SCH ×2 (06:26→18:35)
[2019-11-07] MEDS: PANTOPRAZOLE 40 MG TABLET PO SCH ×2 (06:26→09:50)
[2019-11-07 07:18] LABS: HCT 34.4 % (34.0-46.0); HGB 10.7 gm/dL (11.4-16.0); Hypochromasia Moderate; MCH 25.6 pg (25.0-35.0); MCV 82.5 fL (80.0-100.0); Mean Platelet Volume 8.6; Platelet Count 214 k/uL (150-450); RBC 4.17 m/uL (3.80-5.40); RDW 15.6 % (11.5-15.5); WBC 9.6 k/uL (3.8-10.6)
[2019-11-07 07:28] LABS: Calcium 8.9 mg/dL (8.4-10.2); Magnesium 1.4 mg/dL (1.6-2.3); Potassium 3.5 mmol/L (3.5-5.1)
--- NOTE | 2019-11-07 08:40 | EEG ---
ELECTROENCEPHALOGRAM REPORT PROCEDURE DATE: 11/06/2019 ELECTROENCEPHALOGRAM (EEG) REPORT: TECHNIQUE: A routine 18 channel EEG was performed with video using the 10/20 international electrode placement system. HISTORY: Patient fell off the commode at home. The patient had a grand mal seizure in the emergency room. CURRENT MEDICATIONS: Unknown. STUDY DURATION: 20 minutes. FINDINGS: Please note that portions of this recording were limited in their interpretation by the presence of muscle artifact. BACKGROUND: Background frequencies were better defined over the left posterior quadrants compared to the right. Frequencies of the left posterior quadrants consisted of unsustained 5-6 Hz waveforms with intermixed delta range slowing. Those over the right posterior quadrants were in the 2-4 Hz range. ACTIVATION: Hyperventilation: Not performed. Photic stimulation: No driving seen. Sleep: Drowsy. ABNORMALITIES: Right hemispheric greater than left hemispheric slow wave activity was seen. Frequencies over the right hemisphere were in the 2-4 Hz range where those of the left hemisphere were in the 3-6 Hz range. IMPRESSION: Limited study, abnormal EEG. Right hemispheric greater than left hemispheric slow wave activity was seen. This slow-wave activity is not epileptiform in nature. These findings indicate moderate diffuse cerebral dysfunction of the left hemisphere and severe diffuse cerebral dysfunction of the right hemisphere. No seizures were recorded. No epileptiform activity was present. Clinical correlation is recommended. MMODL / IJN: [id number] /
[2019-11-07] MEDS ORDERED: FUROSEMIDE 10 MG/ML 4 ML VIAL IV STA (08:43)
--- NOTE | 2019-11-07 08:44 | P.CRDCN ---
History of Present Illness Consult date: 11/07/19 Requesting physician: Rhys Holley Consult reason: hypertension Chief complaint: Syncope, possible seizures History of present illness: This is a pleasant 64-year-old female who follows with Dr. Dru Alicea in the office. She has a known history of diabetes, hypertension, hyperlipidemi a, prior CVA 3, prior left carotid endarterectomy, she also has a loop recorder in place which has been there for approximately 3 years, she does have documented paroxysmal atrial fibrillation and was initiated on Eliquis as an outpatient. Patient presented to the hospital on this occasion following a syncopal episode and possible seizures. According to the daughter, she was sitting on the commode, her daughter stepped out of the room, heard a thump, and found her mom on the floor. She was unresponsive, they attempted to do a sternal rub, they also checked her blood sugars which at that time were normal. EMS was called, while in transfer from EMS the patient woke up. While in the emergency room patient again had another episode, this time appearing to be seizure-like activity.Ppatient does have chronic UTI and is on IV antibiotic infusions for this. Positive MRSA and ESBL in the urine. EKG on arrival here showed a normal sinus rhythm with a heart rate of 57. Chest x-ray showed some pulmonary interstitial edema which could relate to mild heart failure. No change from prior exam. CAT scan of the head and spine was performed, stable appearance of the brain with no acute abnormality seen. An x-ray of the left hand was performed, suggested some possible cellulitis, edema, osteoarthritis and osteopenia. No acute fracture. An x-ray of the left foot was also performed which revealed soft tissue swelling no suggestion of osteomyelitis. Blood pressure on arrival here 195/80, heart rate in the 60s, 84% on 4 L of oxygen. Patient was then placed on a nonrebreather, saturation up to 95-100%. White blood cell count 9.6, hemoglobin 10.7, platelet count 214. Sodium 142, potassium 3.5, BUN 10, creatinine 0.9, magnesium on admission 1.1, 1.4 this morning, troponin negative. C. diff was negative, a positive UTI. At the time of my examination this morning, the patient is resting comfortably in bed, no complaints. The patient had an echocardiogram with Doppler study performed on October 10 of this year which revealed a normal left ventricular systolic function, mild mitral regurgitation and mild aortic stenosis. Past Medical History Past Medical History: CVA/TIA, Diabetes Mellitus, Hypertension Additional Past Medical History / Comment(s): cva x3- lt sided weakness, pt states she is unable to walk and is bedbound History of Any Multi-Drug Resistant Organisms: ESBL, MRSA Date of last positivie culture/infection: 10/28/19 ESBL 07/06/19 MRSA MDRO Source:: URINE Past Surgical History: Tubal Ligation Additional Past Surgical History / Comment(s): CAROTID ENDART TO CLEAN OUT NECK ARTERY LEFT; monitor car operator chip placed Past Anesthesia/Blood Transfusion Reactions: No Reported Reaction Past Psychological History: Depression Smoking Status: Former smoker Past Alcohol Use History: None Reported Past Drug Use History: None Reported - Past Family History Brother(s) Family Medical History: No Reported History Sister(s) Family Medical History: Diabetes Mellitus Additional Family Medical History / Comment(s): RENAL FAILURE, ABCESSES Mother Additional Family Medical History / Comment(s): Brain Aneurism. Father Family Medical History: Diabetes Mellitus Medications and Allergies Home Medications Medication Instructions Recorded Confirmed Type metFORMIN HCL [Glucophage] 500 mg PO AC-BID 05/30/16 11/06/19 History amLODIPine [Norvasc] 5 mg PO DAILY #30 tab 06/03/16 11/06/19 Rx cloNIDine HCL [Catapres] 0.2 mg PO BID #60 tab 06/03/16 11/06/19 Rx Atorvastatin [Lipitor] 80 mg PO HS 03/22/19 11/06/19 History Losartan Potassium 100 mg PO DAILY 03/22/19 11/06/19 History Pantoprazole [Protonix] 40 mg PO DAILY 03/22/19 11/06/19 History Citalopram Hydrobromide [CeleXA] 40 mg PO HS 07/06/19 11/06/19 History Apixaban [Eliquis] 5 mg PO BID 10/09/19 11/06/19 History Metoprolol Tartrate [Lopressor] 25 mg PO DAILY 10/09/19 11/06/19 History Ertapenem [INVanz] 1 gm IVPB Q24H #14 bag 10/30/19 11/06/19 Rx Hydrocortisone Pr Cream 1 applic RECTAL BID #1 applic 10/31/19 11/06/19 Rx [Proctosol-Hc 2.5%] Allergies Allergy/AdvReac Type Severity Reaction Status Date / Time No Known Allergies Allergy Verified 11/06/19 08:42 Physical Exam Vitals: Vital Signs Temp Pulse Pulse Resp BP BP Pulse Ox 11/07/19 04:00 98.3 F 63 18 179/82 97 11/07/19 00:00 98.5 F 59 L 20 178/84 98 11/06/19 22:01 98.3 F 53 L 20 159/70 99 11/06/19 16:00 100.2 F H 58 L 22 203/83 100 11/06/19 14:23 56 L 18 100 11/06/19 12:30 56 L 18 187/83 96 11/06/19 11:47 59 L 18 190/80 98 11/06/19 10:04 60 20 96 11/06/19 09:30 63 20 180/88 95 11/06/19 09:04 66 22 200/80 100 11/06/19 08:46 85 20 197/122 93 L Intake and Output 11/06/19 11/07/19 11/07/19 22:59 06:59 14:59 Output Total 300 Balance -300 Output: Urine 300 PHYSICAL EXAMINATION: GENERAL: 64-year-old female in no acute distress at the time of my examination HEENT: Head is atraumatic, normocephalic. Pupils equal, round. Sclera anicteric. Conjunctiva are clear. Mucous membranes of the mouth are moist. Neck is supple. There is no elevated jugular venous pressure. No carotid bruit is heard. HEART EXAMINATION: Heart S1, S2 systolic murmur is heard . CHEST EXAMINATION: Lungs reveal coarse crackles bilaterally ABDOMEN: Soft, obese, nontender. Bowel sounds are heard. No organomegaly noted. EXTREMITIES: 2+ peripheral pulses with 1+ evidence of peripheral edema left leg much more swollen than the right, chronic . Swelling of the left hand noted. NEUROLOGIC patient is awake, alert and oriented X3, left-sided flaccid. Results 11/07/19 06:42 11/07/19 06:42 CBC 11/07/19 Range/Units 06:42 WBC 9.6 (3.8-10.6) k/uL RBC 4.17 (3.80-5.40) m/uL Hgb 10.7 L (11.4-16.0) gm/dL Hct 34.4 (34.0-46.0) % Plt Count 214 (150-450) k/uL Comprehensive Metabolic Panel 11/07/19 Range/Units 06:42 Sodium 142 (137-145) mmol/L Potassium 3.5 (3.5-5.1) mmol/L Chloride 110 H (98-107) mmol/L Carbon Dioxide 22 (22-30) mmol/L BUN 10 (7-17) mg/dL Creatinine 0.95 (0.52-1.04) mg/dL Glucose 107 H (74-99) mg/dL Calcium 8.9 (8.4-10.2) mg/dL Current Medications Generic Name Dose Route Start Last Admin Trade Name Freq PRN Reason Stop Dose Admin Amlodipine Besylate 5 mg 11/07/19 09:00 Norvasc PO DAILY [facility] Apixaban 5 mg 11/06/19 21:00 11/06/19 21:47 Eliquis PO Not Given BID [facility] Atorvastatin Calcium 80 mg 11/06/19 21:00 11/06/19 21:47 Lipitor PO Not Given HS [facility] Citalopram Hydrobromide 40 mg 11/06/19 21:00 11/06/19 21:47 Celexa PO Not Given HS [facility] Clonidine 0.2 mg 11/06/19 21:00 11/06/19 21:47 Catapres PO Not Given BID [facility] Hydrocortisone 1 applic 11/06/19 21:00 11/06/19 21:47 Proctosol-Hc 2.5% RECTAL Not Given BID [facility] Levetiracetam 1,000 mg/ IV 100 mls @ 400 mls/hr 11/06/19 11:15 11/06/19 21:49 Solution IVPB 400 mls/hr Q12HR [facility] Administration Ertapenem 1 gm/ Sodium 50 mls @ 100 mls/hr 11/06/19 12:00 11/06/19 16:12 Chloride IVPB 11/14/19 12:01 100 mls/hr DAILY@1200 [facility] Administration Acetaminophen 1,000 mg/ IV 100 mls @ 400 mls/hr 11/06/19 18:27 Solution IVPB 11/07/19 12:14 Q6HR PRN Fever Insulin Aspart 0 unit 11/06/19 17:30 11/07/19 06:21 Novolog SQ Not Given ACHS [facility] Protocol Losartan Potassium 100 mg 11/07/19 09:00 Cozaar PO DAILY [facility] Metformin HCl 500 mg 11/06/19 17:30 11/07/19 06:26 Glucophage PO Not Given AC-BID [facility] Metoprolol Tartrate 25 mg 11/07/19 09:00 Lopressor PO DAILY [facility] Naloxone HCl 0.2 mg 11/06/19 07:56 Narcan IV Q2M PRN Opioid Reversal Pantoprazole Sodium 40 mg 11/07/19 07:30 11/07/19 06:26 Protonix PO Not Given AC-BRKFST [facility] Intake and Output 11/06/19 11/07/19 11/07/19 22:59 06:59 14:59 Output Total 300 Balance -300 Output: Urine 300 11/07/19 06:42 11/07/19 06:42 EKG Interpretations (text) EKG shows a sinus bradycardia with a heart rate of 57 Assessment and Plan Plan: Assessment and plan #1 syncope, possible seizures, neurology following #2 hypomagnesemia, being replaced #3 acute on chronic UTIs #4 hypertension, accelerated #5 diabetes #6 hyperlipidemia #7 paroxysmal atrial fibrillation #8 history of CVA 3 with residual left-sided flaccidity #9 history of MRSA and ESBL #10 mild congestive heart failure, diastolic acute on chronic Plan Patient just had an echo performed on October 10 of this year which revealed a normal left ventricular systolic function. We will not repeat an echo this admission. We will obtain a BNP level, chest x-ray suggests some mild congestive heart failure. We will give the patient a one-time dose of IV Lasix. Continue Eliquis 5 mg one tablet by mouth twice a day. Increase dose of Norvasc to 10 mg daily, continue losartan, metoprolol, Lipitor 80. Further recommendations to follow. DNP note has been reviewed, I agree with a documented findings and plan of care. Patient was seen and examined.
[2019-11-07] MEDS: levETIRAcetam IV 1,000 MG in SALINE 1 100ML.BAG IVPB SCH ×2 (08:56→20:45)
[2019-11-07] MEDS ORDERED: MAGNESIUM SULFATE-D5W PMX 1 GM in DEXTROSE/WATER 1 100ML.BAG IVPB ONE (08:57)
[2019-11-07] MEDS ORDERED: amLODIPine 5 MG TAB PO SCH (09:00)
[2019-11-07] MEDS: cloNIDine HCL 0.2 MG TAB PO SCH ×2 (09:50→20:45)
[2019-11-07] MEDS: METOPROLOL TARTRATE 25 MG TAB PO SCH (09:50)
[2019-11-07] MEDS: amLODIPine 10 MG TAB PO SCH (09:50)
[2019-11-07] MEDS: APIXABAN 5 MG TAB PO SCH ×2 (09:51→20:45)
[2019-11-07] MEDS: LOSARTAN 50 MG TAB PO SCH (09:51)
--- NOTE | 2019-11-07 10:55 | P.CONS ---
History of Present Illness - Reason for Consult Consult date: 11/07/19 Wound care - History of Present Illness This is a 64-year-old pleasant female being seen by the wound care center on's 3 cells for a nonhealing ulceration to the coccyx and left lower extremity medial aspect proximal to sacrum. Patient has a pressure injury stage I to the midline coccyx. Maria De Jesus states that the lower leg ulceration has been there for the past few months. The area has been showing improvement. Been utilizing zinc barrier cream at home. The midline ulceration was new from previous admission. Ulceration to left lower leg medial aspect is approximately 1.5 x 3 x 0.1 CM. Minimal slough noted in the wound bed with granulation throughout. Sacrum ulceration is Limited to skin breakdown. With granulation seen throughout. Patient's past medical history significant for CVA, diabetes, hypertension. Review of Systems Review Of Systems: Constitutional: No fever, no chills, no night sweats. No weight change. No weakness, fatigue or lethargy. No daytime sleepiness. Integumentary:reports wounds, no lesions. No rash or pruritus. No unusual bruising. No change in hair or nails. Past Medical History Past Medical History: CVA/TIA, Diabetes Mellitus, Hypertension Additional Past Medical History / Comment(s): cva x3- lt sided weakness, pt states she is unable to walk and is bedbound History of Any Multi-Drug Resistant Organisms: ESBL, MRSA Year Discovered:: 10/28/19 ESBL 07/06/19 MRSA MDRO Source:: URINE Past Surgical History: Tubal Ligation Additional Past Surgical History / Comment(s): CAROTID ENDART TO CLEAN OUT NECK ARTERY LEFT; monitoring coordinator chip placed Past Anesthesia/Blood Transfusion Reactions: No Reported Reaction Past Psychological History: Depression Smoking Status: Former smoker Past Alcohol Use History: None Reported Past Drug Use History: None Reported - Past Family History Brother(s) Family Medical History: No Reported History Sister(s) Family Medical History: Diabetes Mellitus Additional Family Medical History / Comment(s): RENAL FAILURE, ABCESSES Mother Additional Family Medical History / Comment(s): Brain Aneurism. Father Family Medical History: Diabetes Mellitus Medications and Allergies Home Medications Medication Instructions Recorded Confirmed Type metFORMIN HCL [Glucophage] 500 mg PO AC-BID 05/30/16 11/06/19 History amLODIPine [Norvasc] 5 mg PO DAILY #30 tab 06/03/16 11/06/19 Rx cloNIDine HCL [Catapres] 0.2 mg PO BID #60 tab 06/03/16 11/06/19 Rx Atorvastatin [Lipitor] 80 mg PO HS 03/22/19 11/06/19 History Losartan Potassium 100 mg PO DAILY 03/22/19 11/06/19 History Pantoprazole [Protonix] 40 mg PO DAILY 03/22/19 11/06/19 History Citalopram Hydrobromide [CeleXA] 40 mg PO HS 07/06/19 11/06/19 History Apixaban [Eliquis] 5 mg PO BID 10/09/19 11/06/19 History Metoprolol Tartrate [Lopressor] 25 mg PO DAILY 10/09/19 11/06/19 History Ertapenem [INVanz] 1 gm IVPB Q24H #14 bag 10/30/19 11/06/19 Rx Hydrocortisone Pr Cream 1 applic RECTAL BID #1 applic 10/31/19 11/06/19 Rx [Proctosol-Hc 2.5%] Allergies Allergy/AdvReac Type Severity Reaction Status Date / Time No Known Allergies Allergy Verified 11/06/19 08:42 Physical Exam Vitals: Vital Signs Temp Pulse Pulse Resp BP BP Pulse Ox 11/07/19 09:17 78 11/07/19 08:31 97.6 F 78 16 97 11/07/19 04:00 98.3 F 63 18 179/82 97 11/07/19 00:00 98.5 F 59 L 20 178/84 98 11/06/19 22:01 98.3 F 53 L 20 159/70 99 11/06/19 16:00 100.2 F H 58 L 22 203/83 100 11/06/19 14:23 56 L 18 100 11/06/19 12:30 56 L 18 187/83 96 11/06/19 11:47 59 L 18 190/80 98 Intake and Output 11/06/19 11/07/19 11/07/19 22:59 06:59 14:59 Intake Total 780 Output Total 300 800 Balance -300 -20 Intake: Intake, IV Titration 200 Amount Magnesium Sulfate-D5w Pmx 100 1 gm In Dextrose/Water 1 100ml.bag @ 100 mls/hr IVPB ONCE ONE Rx#: [id number] levETIRAcetam IV 1,000 mg 100 In Saline 1 100ml.bag @ 400 mls/hr IVPB Q12HR [facility] Rx#:[id number] Oral 580 Output: Urine 300 800 Other: # Bowel Movements 2 Physical exam: General Appearance: Alert, cooperative, no distress, appears stated age. Skin: See HPI all other Skin color, texture, tugor normal, no rashes or lesions. Neurologic: Alert oriented x3 Results CBC & Chem 7: 11/07/19 06:42 11/07/19 06:42 Labs: Abnormal Lab Results - Last 24 Hours (Table) 11/06/19 11/06/19 11/07/19 Range/Units 18:28 21:52 06:16 Hgb (11.4-16.0) gm/dL RDW (11.5-15.5) % Chloride (98-107) mmol/L Glucose (74-99) mg/dL POC Glucose (mg/dL) 118 H 109 H 117 H (75-99) mg/dL Magnesium (1.6-2.3) mg/dL 11/07/19 11/07/19 Range/Units 06:42 06:42 Hgb 10.7 L (11.4-16.0) gm/dL RDW 15.6 H (11.5-15.5) % Chloride 110 H (98-107) mmol/L Glucose 107 H (74-99) mg/dL POC Glucose (mg/dL) (75-99) mg/dL Magnesium 1.4 L (1.6-2.3) mg/dL Assessment and Plan (1) Type 2 diabetes mellitus with other skin ulcer Current Visit: Yes Status: Acute Code(s): E11.622 - TYPE 2 DIABETES MELLITUS WITH OTHER SKIN ULCER; L98.499 - NON-PRESSURE CHRONIC ULCER OF SKIN OF SITES W UNSP SEVERITY SNOMED Code(s): 667256998 (2) Nonhealing skin ulcer with fat layer exposed Current Visit: No Status: Acute Code(s): L98.492 - NON-PRS CHRONIC ULCER OF SKIN OF SITES W FAT LAYER EXPOSED SNOMED Code(s): 03600389 (3) Pressure injury of sacral region, stage 1 Current Visit: No Status: Acute Code(s): L89.151 - PRESSURE ULCER OF SACRAL REGION, STAGE 1 SNOMED Code(s): 401484521 Plan: Sacral ulceration utilize zinc barrier cream applying daily. May cover if necessary. Ulceration to the left lower extremity medial aspect. Utilize triad applied daily. May cover as necessary. Continue to utilize algorithm for offloading. Role patient every 2 hours as needed. Utilize waffle cushion for sitting. Discussed with patient and family to continue the triad an outpatient basis. Discussed with family that they may ask the primary care physician to continue with Triad cream. Patient verbalized understanding. Thank you for the consultation. Any questions please contact the wound care center DNP note has been reviewed and discussed with Dr. Ruvalcaba and the impression and plan of care has been directed as dictated.
[2019-11-07 11:46] LABS: Glucose,Whole Blood 138 mg/dL (75-99)
[2019-11-07] MEDS: ERTAPENEM 1 GM in SODIUM CHLORIDE 0.9% 50 ML IVPB SCH (11:51)
[2019-11-07] MEDS: HYDROPHILIC CREAM 180 GM TUBE TOPICAL SCH (11:52)
--- NOTE | 2019-11-07 11:52 | P.PN ---
Subjective Patient verbalizing more than yesterday but continues to be confused pleasantly. Unsure where she is oriented to time. Patient had evaluation by neurology cardiology EEG showed moderate dysfunction to the left and severe dysfunction to the right no seizure activity noted. Patient had wound care evaluation. PT OT ordered family in the room discussed plan of care with Objective - Vital Signs Vital signs: Vital Signs Temp 97.6 F 11/07/19 08:31 Pulse 78 11/07/19 09:17 Resp 16 11/07/19 08:31 BP 179/82 11/07/19 04:00 Pulse Ox 97 11/07/19 08:31 Intake & Output 11/06/19 11/07/19 11/07/19 18:59 06:59 18:59 Intake Total 780 Output Total 300 800 Balance -300 -20 Weight 126.099 kg Intake: Intake, IV Titration 200 Amount Magnesium Sulfate-D5w Pmx 100 1 gm In Dextrose/Water 1 100ml.bag @ 100 mls/hr IVPB ONCE ONE Rx#: [id number] levETIRAcetam IV 1,000 mg 100 In Saline 1 100ml.bag @ 400 mls/hr IVPB Q12HR [facility] Rx#:[id number] Oral 580 Output: Urine 300 800 Other: # Bowel Movements 2 - Constitutional General appearance: Present: mild distress, morbidly obese - EENT Eyes: Present: PERRLA Ears: bilateral: normal - Neck Neck: Present: normal ROM - Respiratory Respiratory: bilateral: diminished - Cardiovascular Rhythm: regular - Gastrointestinal General gastrointestinal: Present: soft - Integumentary Integumentary Comment(s): Skin breakdown sacrum and stage I skin breakdown left inner thigh - Neurologic Neurologic: Present: CNII-XII intact - Musculoskeletal Musculoskeletal: Present: left sided weakness - Psychiatric Psychiatric Comment(s): Patient awake and alert not aware of surroundings or time - Labs CBC & Chem 7: 11/07/19 06:42 11/07/19 06:42 Labs: Abnormal Lab Results - Last 24 Hours (Table) 11/06/19 11/06/19 11/07/19 Range/Units 18:28 21:52 06:16 Hgb (11.4-16.0) gm/dL RDW (11.5-15.5) % Chloride (98-107) mmol/L Glucose (74-99) mg/dL POC Glucose (mg/dL) 118 H 109 H 117 H (75-99) mg/dL Magnesium (1.6-2.3) mg/dL 11/07/19 11/07/19 Range/Units 06:42 06:42 Hgb 10.7 L (11.4-16.0) gm/dL RDW 15.6 H (11.5-15.5) % Chloride 110 H (98-107) mmol/L Glucose 107 H (74-99) mg/dL POC Glucose (mg/dL) (75-99) mg/dL Magnesium 1.4 L (1.6-2.3) mg/dL Assessment and Plan Plan: Assessment Syncopal episodes with seizure activity witnessed Hypertension Pressure ulcers sacrum stage I left thigh pressure ulcer Hypo-magnesium History of CVA with left-sided weakness Morbid obesity BMI 49 Diabetes type 2 Resistant urinary tract infection on Ivanz Bradycardia Medical debility Anemia chronic disease Atrial fibrillation intermittent on anticoagulant Acute on chronic diastolic dysfunction EF 55-60% mi Plan Continue cardiology consultation neurology Wound care consultation PT and OT On anticonvulsant Continues with Ivanz
--- NOTE | 2019-11-07 12:28 | P.CNPUL ---
History of Present Illness Consult date: 11/07/19 Chief complaint: Seizures, History of present illness: 64-year-old female patient with multiple medical problems and comorbidities who was recently treated for sepsis secondary to an ESBL producing urinary tract infection/E. coli septicemia and the patient was discharged home on IV Invanz. The patient is known to have morbid obesity, diabetes, hypertension, hyperlipidemia, prior CVA 3, prior carotid endarterectomy on the left and proximal atrial fibrillation for which she has been maintained on long-term anticoagulation with Eliquis. The patient apparently while at home acutely collapse while sitting on her commode. The family found her unresponsive. She was unresponsive to sternal rubs. Blood sugars were within normal limits. W leandere in the emergency department the patient another episode where she had jerky seizure-like activity and for that reason she was admitted to the floor and neurology consultations been obtained. CAT scan of the brain showed stable cerebral atrophy along with an old right frontoparietal and small parieto- occipital junction infarct. The patient is mild ventriculomegaly and the possibility of NPH cannot be completely excluded. Bulky left lobe of the thyroid gland was noted. Note that the blood work was all within normal limits. Stool was C. diff was negative. Creatinine was normal. Echocardiogram that was done during her last visit showed normal LV function with mild MR and mild aortic stenosis. Chest x-ray showed small bilateral pleural effusion and cardiomegaly. Overall chest x-ray findings are unchanged and there is no clear evidence of any aspiration pneumonia. She's not having any significant respiratory distress and she is resting comfortably in bed at this point in time. She was already started on Keppra. EEG was done that showed some cerebral dysfunction and there was no evidence of any seizure activity. Repeat urine analysis showed clumps of white cells along with 40 WBCs and the patient has been still maintained on IV Invanz. Review of Systems Constitutional: Reports daytime sleepiness, Reports fatigue, Reports poor a ppetite, Reports weakness, Reports weight gain Eyes: right as per HPI Ears: deny: decreased hearing, ear discharge, earache, tinnitus Ears, nose, mouth and throat: Denies headache, Denies sore throat Breasts: absent: as per HPI, change in shape, gynecomastia, masses, nipple discharge, pain, skin changes, swelling Cardiovascular: Reports decreased exercise tolerance, Reports irregular heart beat, Reports shortness of breath Respiratory: Reports dyspnea, Reports home oxygen, Reports snoring Gastrointestinal: Reports as per HPI Genitourinary: Denies dysuria, Denies hematuria Menstruation: Reports as per HPI Musculoskeletal: Reports as per HPI Musculoskeletal: absent: ankle pain, ankle stiffness, ankle swelling Integumentary: Denies pruritus, Denies rash Neurological: Reports change in mentation, Reports lack of coordination, Reports seizures, Reports syncope, Reports weakness Psychiatric: Reports as per HPI Endocrine: Reports as per HPI, Reports fatigue Hematologic/Lymphatic: Reports as per HPI Allergic/Immunologic: Reports as per HPI Past Medical History Past Medical History: Atrial Fibrillation, CVA/TIA, Diabetes Mellitus, Hypertension Additional Past Medical History / Comment(s): cva x3- lt sided weakness, pt states she is unable to walk and is bedbound History of Any Multi-Drug Resistant Organisms: ESBL, MRSA Date of last positivie culture/infection: 10/28/19 ESBL 07/06/19 MRSA MDRO Source:: URINE Past Surgical History: Tubal Ligation Additional Past Surgical History / Comment(s): CAROTID ENDART TO CLEAN OUT NECK ARTERY LEFT; 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 Father Family Medical History: Diabetes Mellitus Medications and Allergies Home Medications Medication Instructions Recorded Confirmed Type metFORMIN HCL [Glucophage] 500 mg PO AC-BID 05/30/16 11/06/19 History amLODIPine [Norvasc] 5 mg PO DAILY #30 tab 06/03/16 11/06/19 Rx cloNIDine HCL [Catapres] 0.2 mg PO BID #60 tab 06/03/16 11/06/19 Rx Atorvastatin [Lipitor] 80 mg PO HS 03/22/19 11/06/19 History Losartan Potassium 100 mg PO DAILY 03/22/19 11/06/19 History Pantoprazole [Protonix] 40 mg PO DAILY 03/22/19 11/06/19 History Citalopram Hydrobromide [CeleXA] 40 mg PO HS 07/06/19 11/06/19 History Apixaban [Eliquis] 5 mg PO BID 10/09/19 11/06/19 History Metoprolol Tartrate [Lopressor] 25 mg PO DAILY 10/09/19 11/06/19 History Ertapenem [INVanz] 1 gm IVPB Q24H #14 bag 10/30/19 11/06/19 Rx Hydrocortisone Pr Cream 1 applic RECTAL BID #1 applic 10/31/19 11/06/19 Rx [Proctosol-Hc 2.5%] Allergies Allergy/AdvReac Type Severity Reaction Status Date / Time No Known Allergies Allergy Verified 11/06/19 08:42 Physical Exam Vitals: Vital Signs Temp Pulse Pulse Resp BP BP Pulse Ox 11/07/19 11:59 98.5 F 63 222/87 96 11/07/19 09:17 78 11/07/19 08:31 97.6 F 78 16 97 11/07/19 04:00 98.3 F 63 18 179/82 97 11/07/19 00:00 98.5 F 59 L 20 178/84 98 11/06/19 22:01 98.3 F 53 L 20 159/70 99 11/06/19 16:00 100.2 F H 58 L 22 203/83 100 11/06/19 14:23 56 L 18 100 11/06/19 12:30 56 L 18 187/83 96 Intake and Output 11/06/19 11/07/19 11/07/19 22:59 06:59 14:59 Intake Total 780 Output Total 300 1800 Balance -300 -1020 Intake: Intake, IV Titration 200 Amount Magnesium Sulfate-D5w Pmx 100 1 gm In Dextrose/Water 1 100ml.bag @ 100 mls/hr IVPB ONCE ONE Rx#: [id number] levETIRAcetam IV 1,000 mg 100 In Saline 1 100ml.bag @ 400 mls/hr IVPB Q12HR [facility] Rx#:[id number] Oral 580 Output: Urine 300 1800 Other: # Bowel Movements 2 Weight 126.099 kg GENERAL EXAM: Alert, very pleasant, 64-year-old obese white female, currently sitting up in the recliner, on 3 L of oxygen with a pulse ox of 100% comfortable in no apparent distress. HEAD: Normocephalic/atraumatic. EYES: Normal reaction of pupils, equal size. Conjunctiva pink, sclera white. NOSE: Clear with pink turbinates. THROAT: No erythema or exudates. NECK: No masses, no JVD, no thyroid enlargement, no adenopathy. CHEST: No chest wall deformity. Symmetrical expansion. LUNGS: Equal air entry with no crackles, wheeze, rhonchi or dullness. CVS: Regular rate and rhythm, normal S1 and S2, no gallops, no murmurs, no rubs ABDOMEN: Soft, nontender. No hepatosplenomegaly, normal bowel sounds, no guarding or rigidity. EXTREMITIES: No clubbing, chronic lower extremity nonpitting edema, no cyanosis, 2+ pulses and upper and lower extremities. MUSCULOSKELETAL: Muscle strength and tone normal. SPINE: No scoliosis or deformity SKIN: No rashes CENTRAL NERVOUS SYSTEM: Alert and oriented -3. No focal deficits, tone is normal in all 4 extremities. PSYCHIATRIC: Alert and oriented -3. Appropriate affect. Intact judgment and insight. Results - Laboratory Findings CBC and BMP: 11/07/19 06:42 11/07/19 06:42 PT/INR, D-dimer PT 12.7 sec (9.0-12.0) H 11/06/19 05:55 INR 1.3 (<1.2) H 11/06/19 05:55 Abnormal lab findings: Abnormal Labs 11/06/19 11/06/19 11/06/19 05:55 05:55 05:55 Hgb 10.2 L Hct 33.3 L MCHC 30.6 L RDW PT 12.7 H INR 1.3 H Chloride Creatinine 1.28 H Glucose 140 H POC Glucose (mg/dL) Magnesium 1.1 L Albumin 3.1 L Urine Appearance Urine Protein Urine Blood Ur Leukocyte Esterase Urine RBC Urine WBC Urine WBC Clumps Urine Bacteria Hyaline Casts Urine Mucus Urine Yeast (Budding) 11/06/19 11/06/19 11/06/19 07:17 18:28 21:52 Hgb Hct MCHC RDW PT INR Chloride Creatinine Glucose POC Glucose (mg/dL) 118 H 109 H Magnesium Albumin Urine Appearance Cloudy H Urine Protein 1+ H Urine Blood Moderate H Ur Leukocyte Esterase Large H Urine RBC 71 H Urine WBC 40 H Urine WBC Clumps Moderate H Urine Bacteria Few H Hyaline Casts 4 H Urine Mucus Rare H Urine Yeast (Budding) Few H 11/07/19 11/07/19 11/07/19 06:16 06:42 06:42 Hgb 10.7 L Hct MCHC RDW 15.6 H PT INR Chloride 110 H Creatinine Glucose 107 H POC Glucose (mg/dL) 117 H Magnesium 1.4 L Albumin Urine Appearance Urine Protein Urine Blood Ur Leukocyte Esterase Urine RBC Urine WBC Urine WBC Clumps Urine Bacteria Hyaline Casts Urine Mucus Urine Yeast (Budding) 11/07/19 11:44 Hgb Hct MCHC RDW PT INR Chloride Creatinine Glucose POC Glucose (mg/dL) 138 H Magnesium Albumin Urine Appearance Urine Protein Urine Blood Ur Leukocyte Esterase Urine RBC Urine WBC Urine WBC Clumps Urine Bacteria Hyaline Casts Urine Mucus Urine Yeast (Budding) - Diagnostic Findings Chest x-ray: image reviewed Assessment and Plan Plan: 1 New onset seizure, currently on Keppra. CAT scan of the brain shows old CVA showing cerebral dysfunction without any seizure activity. Currently on Keppra. Consider seizures related to use of Invanz. Neurology consultation is in progress 2 hospitalization for Sepsis secondary to E. coli bacteremia/ESBL secondary to E. coli urinary tract infection and the patient was being treated for this condition with IV Invanz 2 History of previous CVA 3, please refer to the most recent CAT scan of the brain 3 Obesity 4 History of atrial fibrillation with rapid ventricular response 5 Diabetes mellitus 6 Hyperlipidemia 7 Hypertension 8 History of both MRSA and ESBL organisms 9 Hepatosplenomegaly 10 Nephrolithiasis on the left mild to moderate left hydronephrosis 11 Cholelithiasis possible tumefactive sludge 12 small bilateral pleural effusion along with cardiomegaly 13 hypertensive heart disease with concentric LVH and preserved LV function Plan The patient has had previous history of CVA and as such she had a high risk of having seizures in general. EEG was negative for any active seizure activity. Note that carbopanems including Invanz can lower the threshold for seizure. It's possibly the combination of all this led into a seizure activity. We'll suggest continuing the Keppra for now. We'll consult neurology. Complete the course of Invanz and then discontinue repeat cultures. From the pulmonary standpoint, no evidence of any aspiration pneumonia. The patient has bilateral pleural effusions. The patient is cardiomegaly. No signs of any pulmonary decompensation. Continue medical management. Pulmonary we'll sign off the case.
--- NOTE | 2019-11-07 13:29 | P.PN ---
Progress Note - Text Progress Note Date: 11/07/19 SUBJECTIVE/INTERVAL EVENTS: No acute overnight events. Patient on Ertapenem for UTI, which is the antibiotic patient has been on at the infusion center. Patient is in much better mood and energy today. no complaints. no pain. denies headache, nausea, vomiting, new weakness/numbness/tingling. PHYSICAL EXAMINATION: VITAL SIGNS: T 97.6 HR 78 RR 16 BP 179/82 O2 sat 97% on 6L O2 via NC GEN.: obese, with non-rebreather mask on, patient drowsy/having difficulty breathing, somewhat cooperative HEENT: NCAT, sclera without icterus NECK: Supple SKIN AND EXTREMITIES: Warm to touch, LLE bigger than RLE, baseline NEURO: MENTAL STATUS: Patient alert and oriented to self and place. Patient says 1979 and tracy. Patient able to name and repeat and following all commands. CRANIAL NERVES II THROUGH XII: II: Pupils are equal and reactive to light symmetrically. III, IV, : No ptosis. Extraocular movements full. VII. difficult to assess facial asymmetry due to positioning and non-rebreather mask. XII: Tongue midline without fasciculation or atrophy MOTOR/SENSORY: Normal bulk. 4+/5 RUE/RLE. LLE withdraws during babinski but minimally REFLEXES: 1+ throughout. R toes are downgoing. L toes are upgoing COORDINATION/GAIT: deferred DIAGNOSTIC TESTING: LABORATORY: WBC 6.7 Hgb 10.2 Platelet 225 Na 139. K 3.6 Cl 107 CO2 22 BU 12 Cr 1.28 glucose 140 AST 16 ALT 9 AlkPhos 102 troponin <0.012 urinalysis large LE, 40 WBC IMAGING: CT Head and c-spine w/o contrast 11/06/2019: Stable appearance of brain and cerebral atrophy. Old R frontoparietal and smaller parieto-occipital junction infarct. No acute intracranial abnormality seen. No acute fracture. EEG 11/06/2019: Limited study. R hemispheric greater than L hemispheric slow wave activity. Not epileptiform in nature. No seizures or epileptiform activity noted. ASSESSMENT: 64 year-old woman with PMHx of DM, HTN, stroke (with residual L-sided weakness), depression, who presented to [facility] for an episode of loss of consciousness. Patient with positive urinalysis, likely infection that decreased patient's seizure threshold in the setting of patient having history of cortical stroke. Risk of seizure high in this patient. RECOMMENDATIONS: 1. c/w Keppra 1000mg IV BID 2. Infection management per primary. Carbapenems are known to lower seizure threshold, but patient is close to completing her course. 3. seizure precaution 4. Ativan 2mg IV PRN for seizure-like activity 5. Neurology will sign off at this time. Please feel free to contact Neurology again if with additional questions or concerns.
[2019-11-07] MEDS: ACETAMINOPHEN TAB 325 MG TAB PO PRN ×2 (15:26→22:17)
[2019-11-07] MEDS: HYDROCORTISONE 2.5% RECTAL CREAM 30 GM TUBE RECTAL SCH ×2 (15:26→20:55)
[2019-11-07 16:44] LABS: Glucose,Whole Blood 125 mg/dL (75-99)
[2019-11-07] MEDS ORDERED: hydrALAZINE HCL 20 MG/ML 1 ML VIAL IVP PRN (16:54)
--- NOTE | 2019-11-07 17:38 | P.PCN ---
Date of Procedure: 11/07/19 Preoperative Diagnosis: Sepsis Postoperative Diagnosis: Sepsis Procedure(s) Performed: arterial line insertion Anesthesia: local Surgeon: Sabrina Santiago Estimated Blood Loss (ml): 0 IV fluids (ml): 0 Urine output (ml): 0 Pathology: other Condition: critical Disposition: ICU Operative Findings: Indication: Hemodynamic monitoring. A time-out was completed verifying correct patient, procedure, site, positioning, and implant(s) or special equipment if applicable. Allens test was performed to ensure adequate perfusion. The patients left wrist was prepped and draped in sterile fashion. 1% Lidocaine was used to anesthetize the area. An 18G Arrow arterial line was introduced into the radial artery. The catheter was threaded over the guide wire and the needle was removed with appropriate pulsatile blood return. Blood loss was minimal. The catheter was then sutured in place to the skin and a sterile dressing applied. Perfusion to the extremity distal to the point of catheter insertion was checked and found to be adequate. The patient tolerated the procedure well and there were no complications.
[2019-11-07 19:58] LABS: Glucose,Whole Blood 113 mg/dL (75-99)
[2019-11-07] MEDS: ATORVASTATIN 80 MG TAB PO SCH (20:45)
[2019-11-07] MEDS: CITALOPRAM HYDROBROMIDE 20 MG TAB PO SCH (20:45)
[2019-11-07] MEDS: hydrALAZINE HCL 50 MG TAB PO SCH (22:18)
[2019-11-07] MEDS: CEFTAZIDIME/AVIBACTAM 2.5 GM in SODIUM CHLORIDE 0.9% 100 ML IVPB SCH (23:57)
[2019-11-08 06:34] LABS: Glucose,Whole Blood 107 mg/dL (75-99)
[2019-11-08] MEDS: INSULIN ASPART (NovoLOG) 100 UNIT/ML VIAL SQ SCH ×4 (06:56→22:07)
[2019-11-08] MEDS: PANTOPRAZOLE 40 MG TABLET PO SCH (07:16)
[2019-11-08] MEDS: metFORMIN 500 MG TAB PO SCH ×2 (07:16→17:51)
--- NOTE | 2019-11-08 07:30 | CONS ---
CONSULTATION DATE OF SERVICE: 11/07/2019 REASON FOR CONSULTATION: ESBL E coli bacteremia, seizure while on Invanz. HISTORY OF PRESENT ILLNESS: The patient is a 64-year-old female who was recently admitted at this facility. The patient did have evidence of E coli bacteremia secondary to urinary source that was an ESBL pathogen. The patient's blood culture followup on 10/29 was negative. The patient subsequently did get a Midline and was advised a total of 2-week course of IV Invanz which the patient was receiving outpatient clinic. The patient has now been brought to [facility] ER yesterday morning after apparently the patient noted to have syncopal episode at home. The patient was noticed to be , was staring and froth at her mouth. Subsequently the patient was brought to the ER. The patient did have tonic-clonic seizures as per the family. Patient on presentation to the hospital was afebrile. However, subsequently spiked a fever of 101.8 this evening. The patient has been on Invanz and her white count has been normal. Stool for C difficile checked which has been negative. Infectious Disease was consulted for further recommendations regarding antibiotic therapy. At the time of evaluation, the patient is currently afebrile. The patient did not have any further seizure activity. The patient denies having any chest pain, shortness of breath or cough. No headaches. No nausea. No vomiting. No abdominal pain. REVIEW OF SYSTEMS: Positive points have been mentioned in the HPI. PAST MEDICAL HISTORY: CVA, TIA, diabetes mellitus, hypertension, ESBL E coli bacteremia secondary to urinary source. PAST SURGICAL HISTORY: Carotid endarterectomy and tubal ligation. SOCIAL HISTORY: Remote history of smoking. No drinking or drug use. FAMILY HISTORY: Sister with history of diabetes. Mother history of brain aneurysm. Father was also diabetic. ALLERGIES: No known drug allergies. MEDICATIONS: Medications include the patient is currently on Invanz 1 gram daily. She is on Protonix, Narcan, Lopressor, Glucophage, Lamictal, NovoLog, hydralazine, Catapres, Lipitor, Eliquis, Norvasc, Tylenol. PHYSICAL EXAMINATION: Blood pressure 168/74 with a pulse of 64, temperature 99.1, T-max 101.3. She is 94% on 6 L of nasal cannula. General description is an elderly female, lying in bed in no distress. No tachypnea or accessory muscle of respiration use. HEENT: Examination shows pallor, no scleral icterus. Oral mucous membrane is dry. No pharyngeal erythema or thrush. NECK: Trachea central. No thyromegaly. LUNGS: Unlabored breathing, decreased breath sounds at the bases. No wheeze. HEART: S1, S2. Regular rate and rhythm. ABDOMEN: Soft, no tenderness. No rigidity or rigidity. EXTREMITIES: No edema of feet. SKIN EXAMINATION: No rash or mass palpable. NEUROLOGIC: The patient is awake, alert, oriented. Mood and affect normal. LABS: Hemoglobin is 10.7, white count 9.6, BUN of 10, creatinine 0.95d. Electrolytes have been normal. Urine has been positive with large leukocyte esterase, moderate WBC clumps, and budding yeast. Stool for C difficile has been negative. Chest x-ray, CHF pattern. DIAGNOSTIC IMPRESSION AND PLAN: 1. This patient admitted to the hospital with seizure activity in this patient who was getting IV Invanz for ESBL Escherichia coli bacteremia. The patient was advised a total of 2-week course from her negative blood culture which was 10/29/2019. carbapenem can decrease threshold for seizure though Invanz is less likely but still could be implicated in her seizure activity. 2. The patient who did have a fever despite being on treatment for urinary tract infection. Will need to look for other sources. So far, urine remains to be positive, though chest x-ray was more of a congestive heart failure pattern and no evidence of any cellulitis. PLAN: 1. Blood cultures x2 stat. 2. Check influenza PCR. 3. Discontinue Invanz. 4. We will start the patient on IV Avycaz 2.5 grams q.8 hours. 5. We will follow up on the clinical condition and culture to further adjust medication if needed. Thank you for this consultation. Will follow this patient along with you. MMODL / IJN: [id number] /
[2019-11-08] MEDS: CEFTAZIDIME/AVIBACTAM 2.5 GM in SODIUM CHLORIDE 0.9% 100 ML IVPB SCH (07:59)
[2019-11-08] MEDS: amLODIPine 10 MG TAB PO SCH (08:03)
[2019-11-08] MEDS: APIXABAN 5 MG TAB PO SCH ×2 (08:03→22:04)
[2019-11-08] MEDS: cloNIDine HCL 0.2 MG TAB PO SCH ×2 (08:03→15:53)
[2019-11-08] MEDS: hydrALAZINE HCL 50 MG TAB PO SCH ×3 (08:03→22:05)
[2019-11-08] MEDS: METOPROLOL TARTRATE 25 MG TAB PO SCH (08:04)
[2019-11-08] MEDS: HYDROCORTISONE 2.5% RECTAL CREAM 30 GM TUBE RECTAL SCH ×2 (08:17→21:20)
[2019-11-08] MEDS: HYDROPHILIC CREAM 180 GM TUBE TOPICAL SCH (08:17)
[2019-11-08] MEDS ORDERED: LORazepam 2 MG/ML INJ IV PRN (09:09)
[2019-11-08] MEDS: LOSARTAN 50 MG TAB PO SCH (09:21)
[2019-11-08] MEDS: levETIRAcetam IV 1,000 MG in SALINE 1 100ML.BAG IVPB SCH ×2 (11:08→22:03)
--- NOTE | 2019-11-08 11:34 | MR ---
EXAMINATION TYPE: MR brain wo/w con DATE OF EXAM: 11/08/2019 COMPARISON: MRI brain May 30, 2016. CT brain 2 days ago. HISTORY: mental status changes. Patient admitted after fall injury 2 days ago. TECHNIQUE: Multiplanar, multisequence images of the brain and brainstem is performed without and with IV contras t, utilizing 13 mL intravenous Gadavist . FINDINGS: Some motion artifact degradation is present. Diffusion weighted images demonstrate a few nichols btle punctate foci of increased signal throughout the sethi radiata bilaterally too small to distinc tly visualize on additional ADC mapping and T1 and T2 weighted images. This is not correlating with T 2 shine through. There is background diffuse ventricular and sulcal prominence. There is background f ocal and confluent areas of T2 hyperintensity throughout the deep and periventricular white matter re demonstrated. There is old area of infarct right parietal level in the posterior watershed distributi on seen correlating with acute infarct on 2016 MRI. Midline structures demonstrate normal morphology. The craniocervical junction appears within normal limits. Post contrast images demonstrate no abnormal enhancement. The dural venous sinuses appear pa tent. The visualized sinuses are clear and the globes are intact. IMPRESSION: 1. Suspect punctate foci of acute/subacute ischemia throughout the bilateral sethi radiata as detail ed above. 2. There is background [id number] diffuse cerebral atrophy and advanced chronic small vessel is chemic change with old right-sided posterior watershed infarct are all redemonstrated.
[2019-11-08 11:49] LABS: Glucose,Whole Blood 109 mg/dL (75-99)
[2019-11-08] MEDS ORDERED: HALOPERIDOL LACTATE 5 MG/ML 1 ML VIAL IM PRN (13:02)
[2019-11-08] MEDS ORDERED: IPRATROPIUM-ALBUTEROL 3 ML NEB INHALATION PRN (13:27)
--- NOTE | 2019-11-08 13:52 | P.PN ---
Subjective Progress Note Date: 11/08/19 Principal diagnosis: New Onset seizure disorder 64-year-old female patient with multiple medical problems and comorbidities who was recently treated for sepsis secondary to an ESBL producing urinary tract infection/E. coli septicemia and the patient was discharged home on IV Invanz. The patient is known to have morbid obesity, diabetes, hypertension, hyperlipidemia, prior CVA 3, prior carotid endarterectomy on the left and proximal atrial fibrillation for which she has been maintained on long-term anticoagulation with Eliquis. The patient apparently while at home acutely collapse while sitting on her commode. The family found her unresponsive. She was unresponsive to sternal rubs. Blood sugars were within normal limits. While in the emergency department the patient another episode where she had jerky seizure-like activity and for that reason she was admitted to the floor and neurology consultations been obtained. CAT scan of the brain showed stable cerebral atrophy along with an old right frontoparietal and small parieto- occipital junction infarct. The patient is mild ventriculomegaly and the possibility of NPH cannot be completely excluded. Bulky left lobe of the thyroid gland was noted. Note that the blood work was all within normal limits. Stool was C. diff was negative. Creatinine was normal. Echocardiogram that was done during her last visit showed normal LV function with mild MR and mild aortic stenosis. Chest x-ray showed small bilateral pleural effusion and cardiomegaly. Overall chest x-ray findings are unchanged and there is no clear evidence of any aspiration pneumonia. She's not having any significant respiratory distress and she is resting comfortably in bed at this point in time. She was already started on Keppra. EEG was done that showed some cerebral dysfunction and there was no evidence of any seizure activity. Repeat urine analysis showed clumps of white cells along with 40 WBCs and the patient has been still maintained on IV Invanz. On 11/08/2019 patient seen in follow-up on selective care unit, she seems audibly congested on today's exam, her daughter is at the bedside and states patient has not had recurrence of seizures however she did have increased confusion, agitation, yelling out, and seeing things that were not there, apparently patient did receive a couple doses of Ativan this morning. Seems, and cooperative at this moment. Does have some audible congestion and she had just eaten lunch with the assistance of her daughter. Her antibiotic coverage was switched from meropenem to have a case per ID service recommendations, she is on Keppra. MRIof the brain was obtained. MRI of the brain showed suspected punctate foci of acute subacute ischemia throughout the bilateral sethi radiata , and background mild to moderate diffuse cerebral atrophy and advanced chronic small vessel ischemic changes with old right-sided posterior watershed infarct. Patient did have febrile episodes last night, currently she is on FiO2 of 6 L, and her pulse ox is 97%. Objective - Vital Signs Vital signs: Vital Signs Temp 98.4 F 11/08/19 04:45 Pulse 60 11/08/19 07:05 Resp 26 H 11/08/19 07:05 BP 152/72 11/08/19 07:05 Pulse Ox 97 11/08/19 07:05 Intake & Output 11/07/19 11/08/19 11/08/19 18:59 06:59 18:59 Intake Total 900 1720 Output Total 1800 675 Balance -900 1045 Weight 126.099 kg 125.4 kg Intake: Intake, IV Titration 200 1000 Amount Magnesium Sulfate-D5w Pmx 100 1 gm In Dextrose/Water 1 100ml.bag @ 100 mls/hr IVPB ONCE ONE Rx#: [id number] levETIRAcetam IV 1,000 mg 100 1000 In Saline 1 100ml.bag @ 400 mls/hr IVPB Q12HR BRODY Rx#:[id number] Oral 700 720 Output: Urine 1800 675 Other: # Voids 2 # Bowel Movements 2 1 - Exam GENERAL EXAM: Alert, very pleasant, 64-year-old obese white female, currently sitting up in the recliner, on 6L of oxygen with a pulse ox of 97% comfortable in no apparent distress. HEAD: Normocephalic/atraumatic. EYES: Normal reaction of pupils, equal size. Conjunctiva pink, sclera white. NOSE: Clear with pink turbinates. THROAT: No erythema or exudates. NECK: No masses, no JVD, no thyroid enlargement, no adenopathy. CHEST: No chest wall deformity. Symmetrical expansion. LUNGS: Equal air entry with diffuse crackles and rhonchi CVS: Regular rate and rhythm, normal S1 and S2, no gallops, no murmurs, no rubs ABDOMEN: Soft, nontender. No hepatosplenomegaly, normal bowel sounds, no guarding or rigidity. EXTREMITIES: No clubbing, chronic lower extremity nonpitting edema, no cyanosis, 2+ pulses and upper and lower extremities. MUSCULOSKELETAL: Muscle strength and tone normal. SPINE: No scoliosis or deformity SKIN: No rashes CENTRAL NERVOUS SYSTEM: Alert and oriented -2. And patient has been intermi ttently confused and agitated at times and having hallucinations. No focal deficits, tone is normal in all 4 extremities. - Labs CBC & Chem 7: 11/07/19 06:42 11/07/19 06:42 Labs: Abnormal Lab Results - Last 24 Hours (Table) 11/07/19 11/07/19 11/08/19 Range/Units 16:41 19:56 06:23 POC Glucose (mg/dL) 125 H 113 H 107 H (75-99) mg/dL 11/08/19 Range/Units 11:45 POC Glucose (mg/dL) 109 H (75-99) mg/dL Assessment and Plan Plan: Assessment: 1 New onset seizure, currently on Keppra. CAT scan of the brain shows old CVA showing cerebral dysfunction without any seizure activity. Currently on Keppra. Consider seizures related to use of Invanz. Neurology consultation is in progress 2 hospitalization for Sepsis secondary to E. coli bacteremia/ESBL secondary to E. coli urinary tract infection and the patient was being treated for this condition with IV Invanz 2 History of previous CVA 3, please refer to the most recent CAT scan of the brain 3 Obesity 4 History of atrial fibrillation with rapid ventricular response 5 Diabetes mellitus 6 Hyperlipidemia 7 Hypertension 8 History of both MRSA and ESBL organisms 9 Hepatosplenomegaly 10 Nephrolithiasis on the left mild to moderate left hydronephrosis 11 Cholelithiasis possible tumefactive sludge 12 small bilateral pleural effusion along with cardiomegaly 13 hypertensive heart disease with concentric LVH and preserved LV function 14 possible aspiration 15 acute confusion, agitation, likely related to delirium, and metabolic encephalopathy Plan: Continue current antibiotics, chest x-ray is pending, head of the bed up at least 30-45 for half an hour after eating, maintained aspiration precautions, will add breathing treatments. Avoid benzodiazepines for treatment of acute agitation. We'll discontinue Ativan, continue Haldol as needed. No recurrence of seizures, MRI of the brain has been noted, patient continues on Keppra, neurology is following. Time with Patient: Less than 30
--- NOTE | 2019-11-08 13:55 | PN ---
PROGRESS NOTE DATE OF SERVICE: 11/08/2019 I am covering for Dr. Holley. This 64-year-old woman with a past medical history of multiple medical problems admitted with syncope and seizure. Patient will be closely monitored at this time. The MRI of the brain showed multiple ischemic lesions in the sethi radiata. Neurology is following the patient closely. The patient also had some change in mental status also. Patient is being closely monitored. Patient also has gait dysfunction. The confusion is on and off. EEG has been done at this time. The patient also has ESBL E. Coli, Dr. Dutta is following the patient. Ceftazidime has been initiated. PAST MEDICAL HISTORY: Reviewed. REVIEW OF SYSTEMS: CARDIOVASCULAR SYSTEM: No angina. RESPIRATORY SYSTEM: As mentioned earlier. GI: As mentioned earlier. NERVOUS SYSTEM: As mentioned earlier. CURRENT MEDICATIONS: Current medications are reviewed and include: 1. Tylenol 650 q.6 p.r.n. 2. Norvasc 10 mg daily. 3. Eliquis 5 mg p.o. b.i.d. 4. Lipitor 80 mg at bedtime. 5. Ceftazidime IV q.8. 6. Celexa 40 mg p.o. at bedtime. 7. Catapres 0.2 b.i.d. 8. Haldol p.r.n. 9. Apresoline 50 mg p.o. t.i.d. 10.Ativan 1 mg q.6 p.r.n. 11.Cozaar. 12.Glucophage. 13.Lopressor. 14.Narcan. 15.Protonix. Doses reviewed. PHYSICAL EXAMINATION: Patient is alert and oriented x2. Pulse 60, blood pressure 152/72, respirations 26, temperature 98.4, pulse ox 97% on 6 L. HEENT: Conjunctivae normal. Oral mucosa moist. NECK: No jugular venous distention. No carotid bruit. No lymph node enlargement. CARDIOVASCULAR: S1, S2 muffled. RESPIRATORY: Breath sounds diminished at the bases. A few scattered rhonchi and crackles. ABDOMEN: Soft. LEGS: No edema. NERVOUS SYSTEM: Significant weakness of the left side, otherwise diffusely weak. LABS: Labs are WBC 9.6, hemoglobin 10.7, sodium 142, potassium 3.5. ASSESSMENT: 1. Syncope, possible acute stroke. 2. Seizure disorder, present on admission. 3. Change in mental status acute toxic metabolic encephalopathy. 4. Possible acute urinary tract infection with ESBL Escherichia coli. 5. History of previous stroke. 6. History of atrial fibrillation. 7. History of cerebrovascular accident, transient ischemic attack. 8. Diabetes mellitus type 2. 9. Hypertension. 10.Hypoxic respiratory failure, multifactorial. 11.History of methicillin-resistant Staphylococcus aureus. 12.History of depression. 13.History of nicotine dependence. 14.Gait dysfunction. 15.FULL CODE. 16.Obesity, body mass index 49.3. 17.Increased creatinine with mild acute renal failure, present on admission. RECOMMENDATIONS AND DISCUSSION: This 64-year-old woman presented with multiple complex medical issues, we will monitor the patient closely. Continue the current medications. Continue symptomatic treatment. Continue with antiplatelet agents. Continue with antibiotics. Closely follow with Neurology. I would also recommend a chest x-ray to evaluate for any lung lesions also. Prognosis guarded because of multiple complex medical issues. Discussed with the patient, discussed with family. Prognosis guarded. Further recommendations to follow. MMODL / IJN: [id number] / KRISH
--- NOTE | 2019-11-08 13:56 | XR ---
EXAMINATION TYPE: XR chest 1V portable DATE OF EXAM: 11/08/2019 COMPARISON: Prior chest x-ray 11/06/2019 HISTORY: Congestive heart failure TECHNIQUE: Single frontal view of the chest is obtained. FINDINGS: The heart is enlarged. There is prominence of interstitium and central vascularity. Thicke jolie is present along the minor fissure. No evident pneumothorax or pleural effusion. IMPRESSION: Suspect some improvement in aeration, correlate for persistent congestive heart failure, interstitial edema.
[2019-11-08 14:24] LABS: Appearance,Urine Clear (Clear); Bacteria,Urine Rare /hpf; Bilirubin,Urine Negative (Negative); Blood,Urine Moderate (Negative); Budding Yeast,Urine Few /hpf; Color,Urine Yellow; Glucose,Urine (UA) Negative (Negative); Hyaline Casts,Urine 3 /lpf (0-2); Ketones,Urine Trace (Negative); Leukocyte Esterase,Urine Large (Negative); Nitrite,Urine Negative (Negative); PH, Urine 5.5 (5.0-8.0); Protein,Urine 1+ (Negative); RBC,Urine 61 /hpf (0-5); Squamous Epithelial Cell,Urine 1 /hpf (0-4); WBC,Urine 57 /hpf (0-5)
--- NOTE | 2019-11-08 15:04 | CDI ---
Documentation Clarification Form Date: 11/08/2019 02:42:42 PM From: Kylie Daniels RN CCDS Admit Date: 11/06/2019 07:57:00 AM Patient Name: Joanna Segovia Visit Number: [id number] Discharge Date: ATTENTION: The Clinical Documentation Specialists (CDI) and [facility] Coding Staff appreciate your assistance in clarifying documentation. Please respond to the clarification below the line at the bottom and electronically sign. The CDI & [facility] Coding staff will review the response and follow-up if needed. Please note: Queries are made part of the Legal Health Record. If you have any questions, please contact the author of this message via ITS. Dr. Kristi Pino Hypoxic respiratory failure, multifactorial is documented in your progress note 11/08/19 History/Risk Factors: 64-year-old female presents to the ED via EMS after falling from commode chair hitting her head. Recent admission currently being treated outpatient for urinary tract infection, patient had seizure grand mal in the ED. Medical of CVA with left sided weakness, Heart failure Clinical Indicators: Radiology findings: CXR 11/06 there is some pulmonary interstitial edema that could relate to mild heart failure Vital Signs: 11/06/19 197/122 85 20 93% non-rebreather 15L Other Clinical Indicators: Lung assessment your progress note 11/08 Breath sounds diminished at the bases. A few scattered rhonchi and crackles. Treatment: 11/06 4L oxygen nasal cannula, 11/06 15L oxygen non- rebreather, 11/07 6 L nasal cannula In your professional opinion, can you please clarify the acuity of Hypoxic Respiratory Failure? * Acute Hypoxic Respiratory Failure POA * Acute Hypoxic Respiratory Failure * Other, please specify * Unable to determine (Last Revision: January 2018) Acute Hypoxic Respiratory Failure MTDD
[2019-11-08] MEDS: CEFTAZIDIME/AVIBACTAM 1.25 GM in SODIUM CHLORIDE 0.9% 100 ML IVPB SCH (15:57)
[2019-11-08 16:47] LABS: Glucose,Whole Blood 107 mg/dL (75-99)
[2019-11-08] MEDS: IPRATROPIUM-ALBUTEROL 3 ML NEB INHALATION SCH ×2 (20:16→20:17)
[2019-11-08 20:25] LABS: Glucose,Whole Blood 127 mg/dL (75-99)
[2019-11-08] MEDS: ATORVASTATIN 80 MG TAB PO SCH (22:04)
[2019-11-08] MEDS: ACETAMINOPHEN TAB 325 MG TAB PO PRN (22:04)
[2019-11-08] MEDS: CITALOPRAM HYDROBROMIDE 20 MG TAB PO SCH (22:05)
--- NOTE | 2019-11-08 22:39 | PN ---
PROGRESS NOTE DATE OF SERVICE: 11/08/2019 REASON FOR FOLLOWUP: ESBL E coli bacteremia and UTI. INTERVAL HISTORY: The patient is currently afebrile, has been breathing comfortably. The patient denies having any chest pain. No shortness of breath or cough. No nausea, vomiting, abdominal pain, no further has been noticed. PHYSICAL EXAMINATION: Blood pressure 108/87 with a pulse of 89, temperature 98.4. She is 96% on 3 L nasal cannula. General description is a middle-aged female lying in bed in no distress. Respiratory system: Unlabored breathing. Clear to auscultation anteriorly. Heart S1, S2. Regular rate and rhythm. Abdomen soft. No tenderness. LABS: White count of 9.6. Urine is positive. Urine cultures currently pending. Chest x-ray improvement in aeration. DIAGNOSTIC IMPRESSION AND PLAN: Patient with ESBL E coli bacteremia secondary to urinary source in this patient who was admitted to the hospital after seizure activity, possibly due to CVA with stroke seen on MRI. was discontinued has significant decrease in decrease the seizure threshold. Patient is currently on to continue to finish a course of therapy. Continue supportive care. MMODL / IJN: [id number] /
[2019-11-09] MEDS: CEFTAZIDIME/AVIBACTAM 1.25 GM in SODIUM CHLORIDE 0.9% 100 ML IVPB SCH ×4 (00:36→23:51)
[2019-11-09 05:55] LABS: Glucose,Whole Blood 98 mg/dL (75-99)
[2019-11-09] MEDS: metFORMIN 500 MG TAB PO SCH ×2 (06:47→18:17)
[2019-11-09] MEDS: INSULIN ASPART (NovoLOG) 100 UNIT/ML VIAL SQ SCH ×4 (06:47→20:56)
[2019-11-09] MEDS: PANTOPRAZOLE 40 MG TABLET PO SCH (06:51)
[2019-11-09] MEDS: IPRATROPIUM-ALBUTEROL 3 ML NEB INHALATION SCH ×4 (07:42→20:10)
[2019-11-09] MEDS: levETIRAcetam IV 1,000 MG in SALINE 1 100ML.BAG IVPB SCH ×2 (08:56→21:13)
[2019-11-09] MEDS: hydrALAZINE HCL 50 MG TAB PO SCH ×3 (08:57→21:16)
[2019-11-09] MEDS: METOPROLOL TARTRATE 25 MG TAB PO SCH (08:57)
[2019-11-09] MEDS: LOSARTAN 50 MG TAB PO SCH (08:57)
[2019-11-09] MEDS: APIXABAN 5 MG TAB PO SCH ×2 (08:57→21:15)
[2019-11-09] MEDS: amLODIPine 10 MG TAB PO SCH (08:57)
[2019-11-09] MEDS: cloNIDine HCL 0.2 MG TAB PO SCH ×2 (08:57→21:15)
[2019-11-09] MEDS: HYDROCORTISONE 2.5% RECTAL CREAM 30 GM TUBE RECTAL SCH ×2 (10:17→21:14)
--- NOTE | 2019-11-09 10:42 | P.PN ---
Subjective Progress Note Date: 11/09/19 On today's evaluation of 11/09/2019, the patient is awake and alert in no respiratory difficulties. Chest x-ray from yesterday shows no acute abnormalities. MRI of the brain was done and the patient was found to have chronic cerebral atrophy and chronic advanced small vessel disease along with changes involving the right sided posterior watershed area infarct. He is also suspected punctate foci of acute/subacute ischemia involving the bilateral sethi radiata. The patient was switched to an alternative antibiotics and currently she is taking IV Fortaz. No seizure activity has been noted. She is swallowing fine. No fever. No chills. She is resting comfortably in bed. Family is at the bedside. Repeat urine cultures are still pending for now. Objective - Vital Signs Vital signs: Vital Signs Temp 99 F 11/09/19 08:20 Pulse 66 11/09/19 08:20 Resp 19 11/09/19 08:25 BP 144/64 11/09/19 08:20 Pulse Ox 92 L 11/09/19 08:25 Intake & Output 11/08/19 11/09/19 11/09/19 18:59 06:59 18:59 Intake Total 237 Output Total 500 Balance -263 Weight 104 kg Intake: Oral 237 Output: Urine 500 Other: # Voids 3 - Exam GENERAL EXAM: Alert, very pleasant, 64-year-old obese white female, currently sitting up in the recliner, on 3 L of oxygen with a pulse ox of 100% comfortable in no apparent distress. HEAD: Normocephalic/atraumatic. EYES: Normal reaction of pupils, equal size. Conjunctiva pink, sclera white. NOSE: Clear with pink turbinates. THROAT: No erythema or exudates. NECK: No masses, no JVD, no thyroid enlargement, no adenopathy. CHEST: No chest wall deformity. Symmetrical expansion. LUNGS: Equal air entry with no crackles, wheeze, rhonchi or dullness. CVS: Regular rate and rhythm, normal S1 and S2, no gallops, no murmurs, no rubs ABDOMEN: Soft, nontender. No hepatosplenomegaly, normal bowel sounds, no guarding or rigidity. EXTREMITIES: No clubbing, chronic lower extremity nonpitting edema, no cyanosis, 2+ pulses and upper and lower extremities. MUSCULOSKELETAL: Muscle strength and tone normal. SPINE: No scoliosis or deformity SKIN: No rashes CENTRAL NERVOUS SYSTEM: Alert and oriented -3. No focal deficits, tone is normal in all 4 extremities. PSYCHIATRIC: Alert and oriented -3. Appropriate affect. Intact judgment and insight. - Labs CBC & Chem 7: 11/07/19 06:42 11/09/19 06:35 Labs: Abnormal Lab Results - Last 24 Hours (Table) 11/08/19 11/08/19 11/08/19 Range/Units 11:45 12:55 16:45 Creatinine (0.52-1.04) mg/dL POC Glucose (mg/dL) 109 H 107 H (75-99) mg/dL Urine Protein 1+ H (Negative) Urine Ketones Trace H (Negative) Urine Blood Moderate H (Negative) Ur Leukocyte Esterase Large H (Negative) Urine RBC 61 H (0-5) /hpf Urine WBC 57 H (0-5) /hpf Urine Bacteria Rare H (None) /hpf Hyaline Casts 3 H (0-2) /lpf Urine Yeast (Budding) Few H (None) /hpf 11/08/19 11/09/19 Range/Units 20:21 06:35 Creatinine 1.05 H (0.52-1.04) mg/dL POC Glucose (mg/dL) 127 H (75-99) mg/dL Urine Protein (Negative) Urine Ketones (Negative) Urine Blood (Negative) Ur Leukocyte Esterase (Negative) Urine RBC (0-5) /hpf Urine WBC (0-5) /hpf Urine Bacteria (None) /hpf Hyaline Casts (0-2) /lpf Urine Yeast (Budding) (None) /hpf Microbiology - Last 24 Hours (Table) 11/08/19 05:41 Blood Culture - Preliminary Blood No Growth after 24 hours 11/08/19 12:55 Urine Culture - Preliminary Urine,Clean Catch Assessment and Plan Plan: 1 New onset seizure, currently on Keppra. CAT scan of the brain shows old CVA showing cerebral dysfunction without any seizure activity. Currently on Keppra. Consider seizures related to use of Invanz. Neurology consultation is in progress. MRI of the brain was noted. It showed chronic changes along with some possible new acute/subacute ischemic changes involving the sethi radiata. Breasts the findings are all chronic. The patient has been switched IV Fortaz. 2 hospitalization for Sepsis secondary to E. coli bacteremia/ESBL secondary to E. coli urinary tract infection and the patient was being treated for this condition with IV Invanz, currently has been switched to Fortaz 2 History of previous CVA 3, please refer to the most recent CAT scan of the brain 3 Obesity 4 History of atrial fibrillation with rapid ventricular response 5 Diabetes mellitus 6 Hyperlipidemia 7 Hypertension 8 History of both MRSA and ESBL organisms 9 Hepatosplenomegaly 10 Nephrolithiasis on the left mild to moderate left hydronephrosis 11 Cholelithiasis possible tumefactive sludge 12 small bilateral pleural effusion along with cardiomegaly 13 hypertensive heart disease with concentric LVH and preserved LV function Plan MRI of the brain noted Aspiration precautions Continue IV Fortaz Monitor for his seizures Urine cultures are negative Chest x-ray was repeated and there is no evidence of any pneumonia We'll continue to follow.
[2019-11-09 11:45] LABS: Glucose,Whole Blood 118 mg/dL (75-99)
[2019-11-09 12:58] LABS: Calcium 8.3 mg/dL (8.4-10.2); Potassium 3.1 mmol/L (3.5-5.1)
[2019-11-09 13:15] LABS: HCT 30.6 % (34.0-46.0); Hypochromasia Marked; MCH 24.8 pg (25.0-35.0); MCV 85.4 fL (80.0-100.0); Mean Platelet Volume 9.2; Platelet Count 247 k/uL (150-450); RBC 3.59 m/uL (3.80-5.40); RDW 15.4 % (11.5-15.5)
[2019-11-09 13:18] LABS: HGB 8.9 gm/dL (11.4-16.0)
[2019-11-09 14:35] LABS: Eosinophils # (M) 0.12 k/uL (0-0.7); Lymphocytes # (M) 1.67 k/uL (1.0-4.8); Monocytes # (M) 0.25 k/uL (0-1.0); Neutrophils # (M) 4.22 k/uL (1.3-7.7); Neutrophils % (M) 68 %; Nucleated Red Blood Cells 1 /100 WBC (0-0); Total Cells Counted 200; WBC 6.2 k/uL (3.8-10.6)
[2019-11-09] MEDS: HYDROPHILIC CREAM 180 GM TUBE TOPICAL SCH (16:18)
[2019-11-09 16:37] LABS: Glucose,Whole Blood 120 mg/dL (75-99)
[2019-11-09] MEDS ORDERED: Potassium Replacement Protocol 1 EACH MISC MISCELLANE PRN ×2 (17:04→18:10)
[2019-11-09] MEDS: POTASSIUM CHLORIDE ER 20 MEQ TAB.ER PO SCH ×2 (18:17→19:22)
[2019-11-09 20:29] LABS: Glucose,Whole Blood 108 mg/dL (75-99)
[2019-11-09] MEDS: ACETAMINOPHEN TAB 325 MG TAB PO PRN (21:14)
[2019-11-09] MEDS: CITALOPRAM HYDROBROMIDE 20 MG TAB PO SCH (21:15)
[2019-11-09] MEDS: ATORVASTATIN 80 MG TAB PO SCH (21:15)
--- NOTE | 2019-11-09 21:31 | PN ---
PROGRESS NOTE DATE OF SERVICE: 11/09/2019 This 64-year-old woman who was admitted with syncope also had possible stroke and MRI of the brain. The patient is being closely monitored. Patient also had multiple infections, most recent cultures are negative at this time. The patient had change in mental status, slightly improving. The patient is able to take food at this time with some help. PT/OT is also evaluating the patient also. The patient admitted with seizure disorder PAST MEDICAL HISTORY: Reviewed. REVIEW OF SYSTEMS: CARDIOVASCULAR system: No angina or palpitations. RESPIRATORY: As mentioned earlier. GASTROINTESTINAL: As mentioned earlier. no numbness or weakness. CURRENT MEDICATIONS: Reviewed and include: 1. Tylenol p.r.n. 2. DuoNeb q.i.d. and p.r.n. 3. Norvasc 10 mg p.o. daily. 4. Eliquis 5 mg p.o. b.i.d. 5. Lipitor 10 mg q.h.s. 6. Ceftazidime 1.25 g IV q.8h. 7. Catapres 2.2 mg p.o. b.i.d. 8. Apresoline. 9. Hydrocortisone. 10.Proctozone. 11.NovoLog scale. 12.Keppra 1000 mg. 13.Cozaar. 14.Glucophage. 15.Lopressor. 16.Narcan. 17.The doses are reviewed. PHYSICAL EXAM: Patient is alert, oriented x2. Pulse is 59. Blood pressure 140/62, respirations 19. Temperature is normal. Pulse ox 97% on 3 L. HEENT is conjunctivae normal. NECK: No JVD. CARDIOVASCULAR: S1, S2 muffled. RESPIRATIONS: Breath sounds diminished in the bases. A few scattered rhonchi and crackles. ABDOMEN: Soft, nontender. LEGS: No edema. No swelling. CENTRAL NERVOUS SYSTEM: Diffusely weak. LABS: At this time, WBC 6.2, hemoglobin is 8.9, sodium 140, potassium 3.1. ASSESSMENT: 1. Acute seizures, generalized tonic-clonic possibly related to stroke. 2. Acute stroke, present on admission. 3. Multiple strokes in the sethi radiata. 4. Change in mental status, acute toxic metabolic encephalopathy, multifactorial. 5. Possible acute urinary tract infection with ESBL E coli, present on admission. 6. History of previous stroke. 7. History of atrial fibrillation. 8. History of cerebrovascular accident, transient ischemic attack. 9. Diabetes mellitus type 2. 10.Hypertension. 11.Acute hypoxic respiratory failure, multifactorial. 12.History of MRSA. 13.History of depression. 14.History of nicotine dependence. 15.Gait dysfunction. 16.Obesity, body mass index of 49.3. 17.Increased creatinine with mild acute renal failure acute tubular necrosis present on admission. 18.FULL CODE. RECOMMENDATIONS AND DISCUSSION: In this 64-year-old woman who presented with multiple complex medical issues, at this time, I recommend to continue current medications, management and symptomatic treatment. Continue with Keppra. Continue the bronchodilators. Continue to monitor blood pressure closely. Monitor blood sugars closely. PT/OT evaluation. At this time, the family would like the patient to return home rather than ECF. We will continue to monitor. Once again, the prognosis is extremely guarded because of multiple complex medical issues. Closely follow with Neurology. Further recommendations to follow. TRUDI / MILTON: [id number] / KIRSH
--- NOTE | 2019-11-09 23:43 | PN ---
PROGRESS NOTE DATE OF SERVICE: 11/09/2019. REASON FOR FOLLOW UP: ESBL E-coli bacteremia next day. INTERVAL HISTORY: The patient is currently afebrile, has been breathing comfortably. The patient denies having any chest pain. No shortness of breath or cough. No nausea. No vomiting. No abdominal pain. No diarrhea. PHYSICAL EXAMINATION: Blood pressure 144/64 with a pulse of 51, temperature 98.9. She is 97% on 2 L nasal cannula. General description is an elderly female lying in bed in no distress. Respiratory system: Unlabored breathing. Decreased breath sounds in the bases. No wheeze. Heart S1, S2. Regular rate and rhythm noted. LABS: Hemoglobin 8.8, white count 6.2, BUN of 13, creatinine 1.05. Blood repeat culture so far pending. DIAGNOSTIC IMPRESSION AND PLAN: Patient with ESBL E coli urinary tract infection and bacteremia in this patient admitted to the hospital with seizure activity. I also have evidence of a new CVA more likely responsible for seizure that he has. The patient is currently covered with vancomycin and Zosyn and continued Marcaine. Monitor clinical course closely. at the bedside. Questions were answered. MMODL / IJN: [id number] /
[2019-11-10 06:08] LABS: Glucose,Whole Blood 108 mg/dL (75-99)
[2019-11-10 06:25] LABS: Basophils % (A) 0 %; Eosinophils # (A) 0.3 k/uL (0-0.7); Eosinophils % (A) 5 %; HCT 31.2 % (34.0-46.0); Hypochromasia Marked; Lymphocytes # (A) 1.4 k/uL (1.0-4.8); Lymphocytes % (A) 23 %; MCHC 28.8 g/dL (31.0-37.0); MCV 83.6 fL (80.0-100.0); Mean Platelet Volume 8.5; Monocytes # (A) 0.3 k/uL (0-1.0); Monocytes % (A) 5 %; Neutrophils # (A) 3.8 k/uL (1.3-7.7); Neutrophils % (A) 65 %; Platelet Count 264 k/uL (150-450); RBC 3.73 m/uL (3.80-5.40); RDW 15.4 % (11.5-15.5); WBC 5.9 k/uL (3.8-10.6)
[2019-11-10 06:38] LABS: Potassium 3.5 mmol/L (3.5-5.1)
[2019-11-10] MEDS: PANTOPRAZOLE 40 MG TABLET PO SCH (07:04)
[2019-11-10] MEDS: INSULIN ASPART (NovoLOG) 100 UNIT/ML VIAL SQ SCH ×4 (07:04→20:06)
[2019-11-10] MEDS: metFORMIN 500 MG TAB PO SCH ×2 (07:05→17:20)
[2019-11-10] MEDS: IPRATROPIUM-ALBUTEROL 3 ML NEB INHALATION SCH ×4 (07:40→19:41)
[2019-11-10] MEDS: levETIRAcetam IV 1,000 MG in SALINE 1 100ML.BAG IVPB SCH ×2 (09:11→20:04)
[2019-11-10] MEDS: hydrALAZINE HCL 50 MG TAB PO SCH ×3 (09:12→23:11)
[2019-11-10] MEDS: APIXABAN 5 MG TAB PO SCH ×2 (09:12→20:04)
[2019-11-10] MEDS: CEFTAZIDIME/AVIBACTAM 1.25 GM in SODIUM CHLORIDE 0.9% 100 ML IVPB SCH ×3 (09:12→23:12)
[2019-11-10] MEDS: amLODIPine 10 MG TAB PO SCH (09:12)
[2019-11-10] MEDS: LOSARTAN 50 MG TAB PO SCH (09:12)
[2019-11-10] MEDS: METOPROLOL TARTRATE 25 MG TAB PO SCH (09:12)
[2019-11-10] MEDS: cloNIDine HCL 0.2 MG TAB PO SCH ×2 (09:12→20:04)
[2019-11-10] MEDS: HYDROCORTISONE 2.5% RECTAL CREAM 30 GM TUBE RECTAL SCH ×2 (09:13→20:06)
[2019-11-10] MEDS: HYDROPHILIC CREAM 180 GM TUBE TOPICAL SCH (09:13)
[2019-11-10 11:41] LABS: Glucose,Whole Blood 116 mg/dL (75-99)
[2019-11-10 16:52] LABS: Glucose,Whole Blood 135 mg/dL (75-99)
[2019-11-10 19:49] LABS: Glucose,Whole Blood 130 mg/dL (75-99)
[2019-11-10] MEDS: CITALOPRAM HYDROBROMIDE 20 MG TAB PO SCH (20:04)
[2019-11-10] MEDS: ATORVASTATIN 80 MG TAB PO SCH (20:04)
--- NOTE | 2019-11-10 22:19 | PN ---
PROGRESS NOTE DATE OF SERVICE: 11/10/2019 This 64-year-old woman who was admitted with acute seizure, generalized tonic clonic seizures, also had possible acute stroke also. Patient being closely monitored. No chest pain. No palpitations. No fever. EXAM: Alert and oriented x2. Pulse 78. Blood pressure 145/60, respiration 19, temperature 98.9, pulse ox 98% on 3 L. HEENT is conjunctivae normal. NECK: No JVD. CARDIOVASCULAR: S1, S2 muffled. RESPIRATIONS: Breath sounds diminished in the bases. A few scattered rhonchi and crackles. Abdomen is soft, nontender. No mass palpable. LEGS are no edema. No swelling. CENTRAL NERVOUS SYSTEM: Significant weakness on the left side present. LAB STUDIES: WBC 5.2, hemoglobin is 9. ASSESSMENT: 1. Acute seizure, generalized tonic-clonic possibly related to stroke. 2. Acute stroke, present on admission. 3. Multiple strokes on the sethi radiata. 4. Change in mental status acute toxic metabolic encephalopathy multifactorial. 5. Possible acute urinary tract infection with ESBL E coli, present on admission. 6. History of previous stroke. 7. History of atrial fibrillation. 8. History of cerebrovascular accident, transient ischemic attack. 9. Diabetes mellitus type 2. 10.Hypertension. 11.Acute hypoxic respiratory failure, multifactorial. 12.History of MRSA. 13.History of depression. 14.Remote history of nicotine dependence. 15.Gait dysfunction. 16.Obesity, body mass index 49.3. 17.Increased creatinine with mild acute renal failure with acute tubular necrosis present on admission. 18.FULL CODE. RECOMMENDATIONS AND DISCUSSION: Recommend to continue current medications and symptomatic treatment. Otherwise, at this time, I would recommend continue the antiplatelet agents and continue the rest of medications. PT/OT evaluation at this time. The family and the patient would like to return home rather than ECF. The prognosis guarded because of multiple complex medical issues. Further recommendations to follow. Discussed with the family at length and closely follow with Neurology. Antiplatelet agents per Neurology. MMODL / IJN: [id number] /
[2019-11-11 06:24] LABS: Glucose,Whole Blood 119 mg/dL (75-99)
[2019-11-11] MEDS: INSULIN ASPART (NovoLOG) 100 UNIT/ML VIAL SQ SCH ×4 (06:26→21:13)
[2019-11-11 06:41] LABS: Basophils # (A) 0.1 k/uL (0-0.2); Basophils % (A) 1 %; Eosinophils # (A) 0.2 k/uL (0-0.7); Eosinophils % (A) 4 %; HCT 30.9 % (34.0-46.0); HGB 9.3 gm/dL (11.4-16.0); Hypochromasia Marked; Lymphocytes # (A) 1.2 k/uL (1.0-4.8); Lymphocytes % (A) 22 %; MCH 25.1 pg (25.0-35.0); MCHC 29.9 g/dL (31.0-37.0); MCV 83.9 fL (80.0-100.0); Mean Platelet Volume 8.8; Monocytes # (A) 0.3 k/uL (0-1.0); Monocytes % (A) 5 %; Neutrophils # (A) 3.9 k/uL (1.3-7.7); Neutrophils % (A) 68 %; Platelet Count 254 k/uL (150-450); RBC 3.69 m/uL (3.80-5.40); RDW 15.8 % (11.5-15.5); WBC 5.7 k/uL (3.8-10.6)
[2019-11-11] MEDS: metFORMIN 500 MG TAB PO SCH ×2 (06:50→17:36)
[2019-11-11] MEDS: PANTOPRAZOLE 40 MG TABLET PO SCH (06:50)
[2019-11-11 07:03] LABS: Calcium 8.2 mg/dL (8.4-10.2); Potassium 3.5 mmol/L (3.5-5.1)
[2019-11-11] MEDS: IPRATROPIUM-ALBUTEROL 3 ML NEB INHALATION SCH ×4 (08:13→19:28)
[2019-11-11] MEDS: CEFTAZIDIME/AVIBACTAM 1.25 GM in SODIUM CHLORIDE 0.9% 100 ML IVPB SCH ×3 (09:24→23:11)
[2019-11-11] MEDS: levETIRAcetam IV 1,000 MG in SALINE 1 100ML.BAG IVPB SCH ×2 (09:24→21:26)
[2019-11-11] MEDS: cloNIDine HCL 0.2 MG TAB PO SCH ×2 (09:28→21:26)
[2019-11-11] MEDS: hydrALAZINE HCL 50 MG TAB PO SCH ×3 (09:28→21:26)
[2019-11-11] MEDS: METOPROLOL TARTRATE 25 MG TAB PO SCH (09:28)
[2019-11-11] MEDS: amLODIPine 10 MG TAB PO SCH (09:28)
[2019-11-11] MEDS: APIXABAN 5 MG TAB PO SCH ×2 (09:28→21:26)
[2019-11-11] MEDS: LOSARTAN 50 MG TAB PO SCH (09:28)
[2019-11-11] MEDS: HYDROCORTISONE 2.5% RECTAL CREAM 30 GM TUBE RECTAL SCH ×2 (09:29→21:32)
[2019-11-11] MEDS: HYDROPHILIC CREAM 180 GM TUBE TOPICAL SCH (09:29)
--- NOTE | 2019-11-11 10:09 | PN ---
PROGRESS NOTE DATE OF SERVICE: 11/10/2019 REASON FOR FOLLOWUP: ESBL E coli, UTI and bacteremia. INTERVAL HISTORY: The patient is currently afebrile. The patient is breathing comfortably. Denies having any chest pain, shortness of breath or cough. No nausea or vomiting. No abdominal pain, no diarrhea. PHYSICAL EXAMINATION: Blood pressure 150/65 with a pulse of 76, temperature 98.1 he is 95% on 3 L nasal cannula. General description is an elderly female, lying in bed in no distress. RESPIRATORY SYSTEM: Unlabored breathing, clear to auscultation anteriorly. HEART: S1, S2. Regular rate and rhythm. ABDOMEN: Soft, no tenderness. LABS: Hemoglobin of 9 with white count 5.9, BUN of 14, creatinine 1.03. Urine now showing Jyoti albicans. Blood culture has been negative. DIAGNOSTIC IMPRESSION AND PLAN: Patient with ESBL E coli UTI and bacteremia for which the patient has received adequate antibiotic therapy, currently on that can be discontinued on discharge with no need for antibiotic. Continue supportive care. MMODL / IJN: [id number] /
[2019-11-11 11:17] VITALS: BMI 47.2
--- NOTE | 2019-11-11 11:34 | P.PN ---
Subjective Patient's baseline with communication requesting discharge home. Need clearance from neurology regarding antiseizure medicine. Patient remains hypertensive in the 200s requested revisit with cardiology for medication adjustment Objective - Vital Signs Vital signs: Vital Signs Temp 98.1 F 11/11/19 08:00 Pulse 70 11/11/19 08:23 Resp 16 11/11/19 08:00 BP 218/89 11/11/19 08:00 Pulse Ox 93 L 11/11/19 08:00 Intake & Output 11/10/19 11/11/19 11/11/19 18:59 06:59 18:59 Intake Total 200 100 0 Output Total 500 1 Balance 200 -400 -1 Weight 121 kg 121 kg Intake: Intake, IV Titration 200 100 Amount Ceftazidime/Avibactam 1. 100 25 gm In Sodium Chloride 0.9% 100 ml @ 50 mls/hr IVPB Q8HR [facility] Rx#: [id number] levETIRAcetam IV 1,000 mg 100 100 In Saline 1 100ml.bag @ 400 mls/hr IVPB Q12HR [facility] Rx#:[id number] Oral 0 Output: Urine 500 Stool 1 Other: Voiding Method Diaper Diaper Diaper Incontinent Incontinent Incontinent - Constitutional General appearance: Present: mild distress - EENT Eyes: Present: PERRLA Ears: bilateral: normal - Neck Neck: Present: normal ROM - Respiratory Respiratory: bilateral: CTA - Cardiovascular Rhythm: regular - Gastrointestinal General gastrointestinal: Present: normal bowel sounds, soft - Integumentary Integumentary Comment(s): Pressure sores to coccyx and left inner thigh - Neurologic Neurologic: Present: CNII-XII intact - Musculoskeletal Musculoskeletal: Present: left sided weakness - Psychiatric Psychiatric: Present: A&O x's 3 - Labs CBC & Chem 7: 11/11/19 06:02 11/11/19 06:02 Labs: Abnormal Lab Results - Last 24 Hours (Table) 11/10/19 11/10/19 11/10/19 Range/Units 11:30 16:50 19:47 RBC (3.80-5.40) m/uL Hgb (11.4-16.0) gm/dL Hct (34.0-46.0) % MCHC (31.0-37.0) g/dL RDW (11.5-15.5) % Glucose (74-99) mg/dL POC Glucose (mg/dL) 116 H 135 H 130 H (75-99) mg/dL Calcium (8.4-10.2) mg/dL 11/11/19 11/11/19 11/11/19 Range/Units 06:02 06:02 06:19 RBC 3.69 L (3.80-5.40) m/uL Hgb 9.3 L (11.4-16.0) gm/dL Hct 30.9 L (34.0-46.0) % MCHC 29.9 L (31.0-37.0) g/dL RDW 15.8 H (11.5-15.5) % Glucose 110 H (74-99) mg/dL POC Glucose (mg/dL) 119 H (75-99) mg/dL Calcium 8.2 L (8.4-10.2) mg/dL Microbiology - Last 24 Hours (Table) 11/08/19 05:41 Blood Culture - Preliminary Blood No Growth after 72 hours - Imaging and Cardiology MRI - head: report reviewed Assessment and Plan Plan: Assessment Unstable hypertension Acute hypoxic respiratory failure Mental status changes metabolic encephalopathy Presser ulcerations left thigh sacrum stage I Syncope seizure activity Hypo-magnesium corrected History of CVA with left-sided weakness and acute changes per MRI [place] obesity BMI 47 Obese type II Resistant urinary tract infection infectious disease states this is cleared will not be sent home on antibiotics Bradycardia resolved Medical debility Anemia chronic disease Atrial fibrillation intermittent Care chronic diastolic dysfunction EF 55-60% Plan Hopeful discharge soon Reconsult cardiology regarding hypertension Reconsult neurology regarding home medication for antiseizure medication
[2019-11-11 11:56] LABS: Glucose,Whole Blood 121 mg/dL (75-99)
[2019-11-11 16:55] LABS: Glucose,Whole Blood 121 mg/dL (75-99)
[2019-11-11 20:15] LABS: Glucose,Whole Blood 108 mg/dL (75-99)
--- NOTE | 2019-11-11 20:48 | PN ---
PROGRESS NOTE DATE OF SERVICE: 11/11/2019 REASON FOR FOLLOWUP: ESBL E coli bacteremia and UTI. INTERVAL HISTORY: The patient is currently afebrile. The patient has been breathing comfortably. The patient denies having any chest pain, shortness of breath or cough. No nausea, no vomiting. No abdominal pain. No diarrhea. PHYSICAL EXAMINATION: Blood pressure is 151/70 with a pulse of 65, temperature 98. General description is an elderly female lying in bed in no distress. RESPIRATORY SYSTEM: Unlabored breathing. Clear to auscultation anteriorly. HEART: S1, S2. Regular rate and rhythm. ABDOMEN: Soft. No tenderness. LABS: Hemoglobin is 9.3, white count 5.7, creatinine 0.88. Blood cultures have been negative. Urine with Jyoti albicans. DIAGNOSTIC IMPRESSION AND PLAN: Patient with extended-spectrum beta-lactamase Escherichia coli bacteremia secondary to a urinary source. Follow-up blood culture has been negative. The patient is currently covered with . Will complete her antibiotic therapy as of tomorrow. Monitor her clinical course closely. Continue supportive care. MMODL / IJN: [id number] /
[2019-11-11] MEDS: CITALOPRAM HYDROBROMIDE 20 MG TAB PO SCH (21:26)
[2019-11-11] MEDS: ATORVASTATIN 80 MG TAB PO SCH (21:26)
[2019-11-12 06:11] LABS: Glucose,Whole Blood 110 mg/dL (75-99)
[2019-11-12] MEDS: INSULIN ASPART (NovoLOG) 100 UNIT/ML VIAL SQ SCH ×2 (06:14→13:27)
[2019-11-12] MEDS: PANTOPRAZOLE 40 MG TABLET PO SCH (06:20)
[2019-11-12 06:23] LABS: Basophils # (A) 0.1 k/uL (0-0.2); Basophils % (A) 1 %; Eosinophils # (A) 0.2 k/uL (0-0.7); Eosinophils % (A) 4 %; HCT 30.8 % (34.0-46.0); HGB 9.2 gm/dL (11.4-16.0); Hypochromasia Marked; Lymphocytes # (A) 1.2 k/uL (1.0-4.8); Lymphocytes % (A) 22 %; MCH 25.3 pg (25.0-35.0); MCV 84.4 fL (80.0-100.0); Mean Platelet Volume 8.9; Monocytes # (A) 0.2 k/uL (0-1.0); Monocytes % (A) 4 %; Neutrophils # (A) 3.8 k/uL (1.3-7.7); Neutrophils % (A) 68 %; Platelet Count 274 k/uL (150-450); RBC 3.64 m/uL (3.80-5.40); RDW 15.2 % (11.5-15.5); WBC 5.6 k/uL (3.8-10.6)
[2019-11-12 06:31] LABS: Calcium 8.4 mg/dL (8.4-10.2); Potassium 3.9 mmol/L (3.5-5.1)
[2019-11-12] MEDS: HYDROCORTISONE 2.5% RECTAL CREAM 30 GM TUBE RECTAL SCH (07:48)
[2019-11-12 08:00] VITALS: RESP 18
[2019-11-12] MEDS: CEFTAZIDIME/AVIBACTAM 2.5 GM in SODIUM CHLORIDE 0.9% 100 ML IVPB SCH ×2 (08:07→13:27)
[2019-11-12] MEDS: hydrALAZINE HCL 50 MG TAB PO SCH (08:07)
[2019-11-12] MEDS: amLODIPine 10 MG TAB PO SCH (08:07)
[2019-11-12] MEDS: LOSARTAN 50 MG TAB PO SCH (08:07)
[2019-11-12] MEDS: APIXABAN 5 MG TAB PO SCH (08:07)
[2019-11-12] MEDS: METOPROLOL TARTRATE 25 MG TAB PO SCH (08:07)
[2019-11-12] MEDS: HYDROPHILIC CREAM 180 GM TUBE TOPICAL SCH (08:08)
[2019-11-12] MEDS: IPRATROPIUM-ALBUTEROL 3 ML NEB INHALATION SCH ×2 (08:12→11:43)
[2019-11-12] MEDS: cloNIDine HCL 0.2 MG TAB PO SCH (08:13)
[2019-11-12] MEDS: metFORMIN 500 MG TAB PO SCH (08:13)
[2019-11-12] MEDS ORDERED: levETIRAcetam 500 MG TAB PO SCH (09:00)
[2019-11-12 10:48] VITALS: BP 149/65; TEMP 98.1
[2019-11-12 11:54] VITALS: PULSE 72
[2019-11-12 12:00] LABS: Glucose,Whole Blood 123 mg/dL (75-99)
--- NOTE | 2019-11-12 12:21 | P.DS ---
Providers Date of admission: 11/06/19 07:57 Expected date of discharge: 11/12/19 Attending physician: Rhys Holley Consults: 11/06/19 07:57 Consult Physician Urgent Consulting Provider: Flores Ibarra Consult Reason/Comments: syncope, confusion Do you want consulting provider notified?: Yes 11/06/19 07:58 Consult Physician Urgent Consulting Provider: [facility] Consult Reason/Comments: bradycardia, syncope Do you want consulting provider notified?: Yes 11/06/19 17:04 Consult Physician Urgent Consulting Provider: Sabrina Santiago Consult Reason/Comments: Abnormal CXR Do you want consulting provider notified?: Yes 11/07/19 15:17 Consult Physician Routine Consulting Provider: Nedra Dutta Consult Reason/Comments: pt known to you currently on iv antibiotics per you Do you want consulting provider notified?: Yes Primary care physician: Rhys Holley Hospital Course: 64-year-old female was brought to the emergency room after seizure activity. Patient was evaluated by neurology and cardiology and wound care. Patient was found to have subsequent CVA. Patient baseline at this time family agreed to take patient home for care. Patient started on seizure medicine blood pressure medication adjusted Assessment Syncope seizure activity Hypertension Acute hypoxic Respiratory failure Pressure ulcerations left thigh sacral stage I Mental status changes metabolic encephalopathy Hypo-magnesium corrected History of CVA with left-sided weakness Morbid obesity BMI 50 Diabetes type 2 Resistant urinary tract infection Bradycardia Medical debility anemia chronic disease Atrial fibrillation intermittent Acute on chronic diastolic dysfunction EF 55-60% Plan Follow-up with family physician Dr. Rhys Holley continue with wound care follow- up with neurology and cardiology Patient Condition at Discharge: Serious Plan - Discharge Summary Discharge Rx Participant: No New Discharge Prescriptions: New hydrALAZINE HCL [Apresoline] 50 mg PO TID #90 tab levETIRAcetam [Keppra] 1,000 mg PO Q12HR #60 tab Hydrophilic Cream [Triad Cream] 1 applic TOPICAL DAILY #1 applic Acetaminophen Tab [Tylenol] 650 mg PO Q6HR PRN tab PRN Reason: Fever And/ Or Pain Continue metFORMIN HCL [Glucophage] 500 mg PO AC-BID amLODIPine [Norvasc] 5 mg PO DAILY #30 tab cloNIDine HCL [Catapres] 0.2 mg PO BID #60 tab Atorvastatin [Lipitor] 80 mg PO HS Pantoprazole [Protonix] 40 mg PO DAILY Losartan Potassium 100 mg PO DAILY Citalopram Hydrobromide [CeleXA] 40 mg PO HS Metoprolol Tartrate [Lopressor] 25 mg PO DAILY Apixaban [Eliquis] 5 mg PO BID Hydrocortisone Pr Cream [Proctosol-Hc 2.5%] 1 applic RECTAL BID #1 applic Discontinued Ertapenem [INVanz] 1 gm IVPB Q24H #14 bag Discharge Medication List metFORMIN HCL [Glucophage] 500 mg PO AC-BID 05/30/16 [History] amLODIPine [Norvasc] 5 mg PO DAILY #30 tab 06/03/16 [Rx] cloNIDine HCL [Catapres] 0.2 mg PO BID #60 tab 06/03/16 [Rx] Atorvastatin [Lipitor] 80 mg PO HS 03/22/19 [History] Losartan Potassium 100 mg PO DAILY 03/22/19 [History] Pantoprazole [Protonix] 40 mg PO DAILY 03/22/19 [History] Citalopram Hydrobromide [CeleXA] 40 mg PO HS 07/06/19 [History] Apixaban [Eliquis] 5 mg PO BID 10/09/19 [History] Metoprolol Tartrate [Lopressor] 25 mg PO DAILY 10/09/19 [History] Hydrocortisone Pr Cream [Proctosol-Hc 2.5%] 1 applic RECTAL BID #1 applic 10/31/19 [Rx] Acetaminophen Tab [Tylenol] 650 mg PO Q6HR PRN tab 11/12/19 [Rx] Hydrophilic Cream [Triad Cream] 1 applic TOPICAL DAILY #1 applic 11/12/19 [Rx] hydrALAZINE HCL [Apresoline] 50 mg PO TID #90 tab 11/12/19 [Rx] levETIRAcetam [Keppra] 1,000 mg PO Q12HR #60 tab 11/12/19 [Rx] Follow up Appointment(s)/Referral(s): Rhys Holley MD [Primary Care Provider] - 11/15/19 10:40 am (Monday) Asuncion Alicea MD [STAFF PHYSICIAN] - 11/15/19 9:30 am (Monday Previously scheduled appointment) Patient Instructions/Handouts: Urinary Tract Infection in Women (DC), New-Onset Seizure in Adults (DC) Activity/Diet/Wound Care/Special Instructions: Home with family care on discharge.
--- NOTE | 2019-11-12 13:40 | PN ---
PROGRESS NOTE DATE OF SERVICE: 11/12/2019. REASON FOR FOLLOWUP: ESBL E coli bacteremia and UTI. INTERVAL HISTORY: The patient is currently afebrile. Patient has been breathing comfortably. Patient denies having any chest pain or shortness of breath or cough. No nausea, no vomiting. No abdominal pain and no diarrhea. PHYSICAL EXAMINATION: Blood pressure 149/65 with a pulse of 62, temperature 98.1. She is 90% on room air. General description is an elderly female lying in bed in no distress. RESPIRATORY SYSTEM: Unlabored breathing, clear to auscultation anteriorly. HEART: S1, S2. Regular rate and rhythm. ABDOMEN: Soft, no tenderness. LABS: White count normal 5.6. Creatinine 0.81. Blood culture repeat has been negative so far. DIAGNOSTIC IMPRESSION AND PLAN: Patient admitted to the hospital with seizure in this patient who was getting treatment for ESBL Escherichia coli bacteremia secondary to urinary source. Patient's underlying infection has been adequately treated. She has completed her antibiotic therapy. will be discontinued today and Midline should be out before discharge. Family at the bedside. There were questions and concerns were answered. MMODL / IJN: [id number] /
== END 2019-11-12 13:33 | disposition home or self-care (01) | DRG 64 ==
LOC: EC 05:01 → 3SCARD 07:57
PROVIDERS: ADMIT Family Medicine; ATTEND Family Medicine
DX: I63.9 Cerebral infarction, unspecified (principal); J96.01 Acute respiratory failure with hypoxia; I50.33 Acute on chronic diastolic (congestive) heart failure; G92 Toxic encephalopathy; N17.0 Acute kidney failure with tubular necrosis; I69.354 Hemiplegia and hemiparesis following cerebral infarction affecting left non-dominant side; N13.6 Pyonephrosis; Z16.12 Extended spectrum beta lactamase (ESBL) resistance; L97.922 Non-pressure chronic ulcer of unspecified part of left lower leg with fat layer exposed; Z68.43 Body mass index [BMI] 50.0-59.9, adult; E66.01 Morbid (severe) obesity due to excess calories; L89.151 Pressure ulcer of sacral region, stage 1; G40.409 Other generalized epilepsy and epileptic syndromes, not intractable, without status epilepticus; E11.622 Type 2 diabetes mellitus with other skin ulcer; L89.891 Pressure ulcer of other site, stage 1; D63.8 Anemia in other chronic diseases classified elsewhere; I11.0 Hypertensive heart disease with heart failure; R16.2 Hepatomegaly with splenomegaly, not elsewhere classified; G93.89 Other specified disorders of brain; E78.5 Hyperlipidemia, unspecified; K80.20 Calculus of gallbladder without cholecystitis without obstruction; I48.0 Paroxysmal atrial fibrillation; B96.20 Unspecified Escherichia coli [E. coli] as the cause of diseases classified elsewhere; E83.42 Hypomagnesemia; I69.311 Memory deficit following cerebral infarction; R40.2143 Coma scale, eyes open, spontaneous, at hospital admission; R40.2363 Coma scale, best motor response, obeys commands, at hospital admission; R40.2253 Coma scale, best verbal response, oriented, at hospital admission; F32.9 Major depressive disorder, single episode, unspecified; R26.2 Difficulty in walking, not elsewhere classified; R00.1 Bradycardia, unspecified; R15.9 Full incontinence of feces; R26.9 Unspecified abnormalities of gait and mobility; R53.81 Other malaise; Z79.01 Long term (current) use of anticoagulants; Z79.2 Long term (current) use of antibiotics; Z79.84 Long term (current) use of oral hypoglycemic drugs; Z79.899 Other long term (current) drug therapy; Z87.440 Personal history of urinary (tract) infections; Z71.3 Dietary counseling and surveillance; Z74.01 Bed confinement status; Z86.14 Personal history of Methicillin resistant Staphylococcus aureus infection; Z86.79 Personal history of other diseases of the circulatory system; Z87.891 Personal history of nicotine dependence; Z98.51 Tubal ligation status; W18.11XA Fall from or off toilet without subsequent striking against object, initial encounter; Z83.3 Family history of diabetes mellitus; Z84.1 Family history of disorders of kidney and ureter
CPT/HCPCS: 36415; 70450; 70553; 71045; 71046; 72125; 80048; 80053; 81001; 83735; 83880; 84132; 84484; 85025; 85027; 85610; 85730; 87040; 87086; 87324; 87502; 93005; 94640; 94760; 95816; 96361; 96365; 96366; 96367; 96368; 96375; 96376; 99285

== ENCOUNTER 2020-01-14 04:48 | Inpatient (IN) | payer MEDICARE, BC ==
--- NOTE | 2020-01-14 05:19 | ED ---
Fever HPI - General Chief Complaint: Fever Stated Complaint: Altered mental status Time Seen by Provider: 01/14/20 04:53 Source: EMS Mode of arrival: EMS Limitations: no limitations - History of Present Illness Initial Comments: this patient is a 64-year-old woman, arriving by ambulance to have evaluation for fever. The patient states that she feels well and was unaware that her family had called EMS. She states that she would not have called EMS of her own volition. She is denying symptoms. She was not aware that she was having a fever. Patient denies cough, dyspnea, chest pain. No abdominal pain, nausea, vomiting or diarrhea. No change in urination that she noted. The patient states that she actually feels well. MD Complaint: fever Onset/Timin -: hour(s) Associated Symptoms: denies other symptoms Treatments Prior to Arrival: Acetaminophen - Related Data Home Medications Medication Instructions Recorded Confirmed metFORMIN HCL [Glucophage] 500 mg PO AC-BID 05/30/16 01/14/20 Atorvastatin [Lipitor] 80 mg PO HS 03/22/19 01/14/20 Losartan Potassium 100 mg PO DAILY 03/22/19 01/14/20 Pantoprazole [Protonix] 40 mg PO DAILY 03/22/19 01/14/20 Citalopram Hydrobromide [CeleXA] 40 mg PO HS 07/06/19 01/14/20 Apixaban [Eliquis] 5 mg PO BID 10/09/19 01/14/20 Metoprolol Tartrate [Lopressor] 25 mg PO DAILY 10/09/19 01/14/20 Acetaminophen with Codeine 1 tab PO Q6H PRN 01/14/20 01/14/20 [Tylenol w/codeine #3] Previous Rx's Medication Instructions Recorded Hydrocortisone Pr Cream 1 applic RECTAL BID #1 applic 10/31/19 [Proctosol-Hc 2.5%] Acetaminophen Tab [Tylenol] 650 mg PO Q6HR PRN tab 11/12/19 Hydrophilic Cream [Triad Cream] 1 applic TOPICAL DAILY #1 applic 11/12/19 amLODIPine [Norvasc] 10 mg PO DAILY #30 tablet 11/12/19 levETIRAcetam [Keppra] 1,000 mg PO Q12HR #60 tab 11/12/19 Amoxic-Pot Clav 875-125Mg 1 tab PO Q12HR 10 Days #20 tab 01/20/20 [Augmentin 875-125] Carvedilol [Coreg] 6.25 mg PO BID-W/MEALS 30 Days #60 01/20/20 tab cloNIDine HCL [Catapres] 0.2 mg PO TID 30 Days #90 tab 01/20/20 hydrALAZINE HCL [Apresoline] 100 mg PO TID 30 Days #90 tab 01/20/20 Allergies Allergy/AdvReac Type Severity Reaction Status Date / Time No Known Allergies Allergy Verified 01/14/20 05:05 Review of Systems ROS Statement: Those systems with pertinent positive or pertinent negative responses have been documented in the HPI. ROS Other: All systems not noted in ROS Statement are negative. Constitutional: Reports: fever Respiratory: Denies: cough, dyspnea Cardiovascular: Denies: chest pain, syncope Gastrointestinal: Denies: abdominal pain, vomiting, diarrhea Genitourinary: Denies: dysuria Musculoskeletal: Denies: back pain Skin: Denies: rash Neurological: Denies: headache Past Medical History Past Medical History: Atrial Fibrillation, CVA/TIA, Diabetes Mellitus, Hypertension Additional Past Medical History / Comment(s): cva x3- lt sided weakness, pt states she is unable to walk and is bedbound History of Any Multi-Drug Resistant Organisms: ESBL, MRSA Date of last positivie culture/infection: 10/28/19 ESBL 07/06/19 MRSA MDRO Source:: URINE Past Surgical History: Tubal Ligation Additional Past Surgical History / Comment(s): CAROTID ENDART TO CLEAN OUT NECK ARTERY LEFT; monitor technician chip placed Past Anesthesia/Blood Transfusion Reactions: No Reported Reaction Past Psychological History: Depression Smoking Status: Former smoker Past Alcohol Use History: None Reported Past Drug Use History: None Reported - Past Family History Brother(s) Family Medical History: No Reported History Sister(s) Family Medical History: Diabetes Mellitus Additional Family Medical History / Comment(s): RENAL FAILURE, ABCESSES Mother Additional Family Medical History / Comment(s): Brain Aneurism. Father Family Medical History: Diabetes Mellitus General Exam Limitations: no limitations General appearance: alert, in no apparent distress Head exam: Present: atraumatic, normocephalic Eye exam: Present: normal appearance. Absent: scleral icterus, conjunctival injection ENT exam: Present: normal oropharynx Neck exam: Present: full ROM. Absent: meningismus Respiratory exam: Present: normal lung sounds bilaterally. Absent: respiratory distress, wheezes, rales, rhonchi, stridor Cardiovascular Exam: Present: regular rate, normal rhythm, normal heart sounds. Absent: systolic murmur, diastolic murmur, rubs, gallop GI/Abdominal exam: Present: soft. Absent: distended, tenderness, guarding, rebound, mass Extremities exam: Present: normal inspection, normal capillary refill, pedal edema. Absent: calf tenderness Neurological exam: Present: alert, oriented X3, CN II-XII intact. Absent: motor sensory deficit Skin exam: Present: warm, dry, intact, normal color. Absent: rash Course Vital Signs 01/14/20 01/14/20 01/14/20 05:02 06:15 07:15 Temperature 102.4 F H 99.9 F H Pulse Rate 88 71 71 Respiratory 20 18 16 Rate Blood Pressure 136/50 131/66 117/61 O2 Sat by Pulse 96 98 98 Oximetry Medical Decision Making - Lab Data Result diagrams: 01/19/20 05:32 01/20/20 08:55 Lab Results 01/14/20 01/14/20 01/14/20 Range/Units 05:15 05:15 05:15 WBC 5.5 (3.8-10.6) k/uL RBC 3.67 L (3.80-5.40) m/uL Hgb 9.7 L (11.4-16.0) gm/dL Hct 30.5 L (34.0-46.0) % MCV 83.0 (80.0-100.0) fL MCH 26.4 (25.0-35.0) pg MCHC 31.8 (31.0-37.0) g/dL RDW 16.6 H (11.5-15.5) % Plt Count 206 (150-450) k/uL Neutrophils % 92 % Lymphocytes % 4 % Monocytes % 3 % Eosinophils % 1 % Basophils % 0 % Neutrophils # 5.1 (1.3-7.7) k/uL Lymphocytes # 0.2 L (1.0-4.8) k/uL Monocytes # 0.2 (0-1.0) k/uL Eosinophils # 0.1 (0-0.7) k/uL Basophils # 0.0 (0-0.2) k/uL Anisocytosis Slight PT 14.2 H (9.0-12.0) sec INR 1.4 H (<1.2) APTT 30.5 H (22.0-30.0) sec Sodium 133 L (137-145) mmol/L Potassium 3.2 L (3.5-5.1) mmol/L Chloride 105 (98-107) mmol/L Carbon Dioxide 21 L (22-30) mmol/L Anion Gap 7 mmol/L BUN 11 (7-17) mg/dL Creatinine 0.81 (0.52-1.04) mg/dL Est GFR (CKD-EPI)AfAm 88 (>60 ml/min/1.73 sqM) Est GFR (CKD-EPI)NonAf 76 (>60 ml/min/1.73 sqM) Glucose 138 H (74-99) mg/dL Plasma Lactic Acid Rock (0.7-2.0) mmol/L Calcium 8.1 L (8.4-10.2) mg/dL Ferritin 22.1 (10.0-291.0) ng/mL Total Bilirubin 0.8 (0.2-1.3) mg/dL AST 15 (14-36) U/L ALT 9 (4-34) U/L Alkaline Phosphatase 78 (38-126) U/L Troponin I (0.000-0.034) ng/mL NT-Pro-B Natriuret Pep pg/mL Total Protein 5.3 L (6.3-8.2) g/dL Albumin 2.5 L (3.5-5.0) g/dL Coronavirus (PCR) (Not Detectd) Influenza Type A RNA (Not Detectd) Influenza Type B (PCR) (Not Detectd) 01/14/20 01/14/20 01/14/20 Range/Units 05:15 05:15 05:15 WBC (3.8-10.6) k/uL RBC (3.80-5.40) m/uL Hgb (11.4-16.0) gm/dL Hct (34.0-46.0) % MCV (80.0-100.0) fL MCH (25.0-35.0) pg MCHC (31.0-37.0) g/dL RDW (11.5-15.5) % Plt Count (150-450) k/uL Neutrophils % % Lymphocytes % % Monocytes % % Eosinophils % % Basophils % % Neutrophils # (1.3-7.7) k/uL Lymphocytes # (1.0-4.8) k/uL Monocytes # (0-1.0) k/uL Eosinophils # (0-0.7) k/uL Basophils # (0-0.2) k/uL Anisocytosis PT (9.0-12.0) sec INR (<1.2) APTT (22.0-30.0) sec Sodium (137-145) mmol/L Potassium (3.5-5.1) mmol/L Chloride (98-107) mmol/L Carbon Dioxide (22-30) mmol/L Anion Gap mmol/L BUN (7-17) mg/dL Creatinine (0.52-1.04) mg/dL Est GFR (CKD-EPI)AfAm (>60 ml/min/1.73 sqM) Est GFR (CKD-EPI)NonAf (>60 ml/min/1.73 sqM) Glucose (74-99) mg/dL Plasma Lactic Acid Rock 1.8 (0.7-2.0) mmol/L Calcium (8.4-10.2) mg/dL Ferritin (10.0-291.0) ng/mL Total Bilirubin (0.2-1.3) mg/dL AST (14-36) U/L ALT (4-34) U/L Alkaline Phosphatase (38-126) U/L Troponin I 0.236 H* (0.000-0.034) ng/mL NT-Pro-B Natriuret Pep pg/mL Total Protein (6.3-8.2) g/dL Albumin (3.5-5.0) g/dL Coronavirus (PCR) (Not Detectd) Influenza Type A RNA Not Detected (Not Detectd) Influenza Type B (PCR) Not Detected (Not Detectd) 01/14/20 01/14/20 Range/Units 05:15 05:15 WBC (3.8-10.6) k/uL RBC (3.80-5.40) m/uL Hgb (11.4-16.0) gm/dL Hct (34.0-46.0) % MCV (80.0-100.0) fL MCH (25.0-35.0) pg MCHC (31.0-37.0) g/dL RDW (11.5-15.5) % Plt Count (150-450) k/uL Neutrophils % % Lymphocytes % % Monocytes % % Eosinophils % % Basophils % % Neutrophils # (1.3-7.7) k/uL Lymphocytes # (1.0-4.8) k/uL Monocytes # (0-1.0) k/uL Eosinophils # (0-0.7) k/uL Basophils # (0-0.2) k/uL Anisocytosis PT (9.0-12.0) sec INR (<1.2) APTT (22.0-30.0) sec Sodium (137-145) mmol/L Potassium (3.5-5.1) mmol/L Chloride (98-107) mmol/L Carbon Dioxide (22-30) mmol/L Anion Gap mmol/L BUN (7-17) mg/dL Creatinine (0.52-1.04) mg/dL Est GFR (CKD-EPI)AfAm (>60 ml/min/1.73 sqM) Est GFR (CKD-EPI)NonAf (>60 ml/min/1.73 sqM) Glucose (74-99) mg/dL Plasma Lactic Acid Rock (0.7-2.0) mmol/L Calcium (8.4-10.2) mg/dL Ferritin (10.0-291.0) ng/mL Total Bilirubin (0.2-1.3) mg/dL AST (14-36) U/L ALT (4-34) U/L Alkaline Phosphatase (38-126) U/L Troponin I (0.000-0.034) ng/mL NT-Pro-B Natriuret Pep 4480 pg/mL Total Protein (6.3-8.2) g/dL Albumin (3.5-5.0) g/dL Coronavirus (PCR) Not Detected (Not Detectd) Influenza Type A RNA (Not Detectd) Influenza Type B (PCR) (Not Detectd) - EKG Data -: EKG Interpreted by Ms EKG shows normal: sinus rhythm (with PAC.), axis (normal), intervals (normal), QRS complexes (normal), ST-T waves (normal) Rate: normal (rate 82 bpm) Disposition Clinical Impression: Pneumonia, Fever Disposition: ADMITTED IP TO THIS HOSP Condition: Stable
[2020-01-14 05:31] LABS: Anisocytosis Slight; Basophils % (A) 0 %; Eosinophils # (A) 0.1 k/uL (0-0.7); Eosinophils % (A) 1 %; HCT 30.5 % (34.0-46.0); HGB 9.7 gm/dL (11.4-16.0); Lymphocytes # (A) 0.2 k/uL (1.0-4.8); Lymphocytes % (A) 4 %; MCH 26.4 pg (25.0-35.0); MCHC 31.8 g/dL (31.0-37.0); Mean Platelet Volume 7.8; Monocytes # (A) 0.2 k/uL (0-1.0); Monocytes % (A) 3 %; Neutrophils # (A) 5.1 k/uL (1.3-7.7); Neutrophils % (A) 92 %; Platelet Count 206 k/uL (150-450); RBC 3.67 m/uL (3.80-5.40); RDW 16.6 % (11.5-15.5); WBC 5.5 k/uL (3.8-10.6)
[2020-01-14 05:42] LABS: Albumin 2.5 g/dL (3.5-5.0); Calcium 8.1 mg/dL (8.4-10.2); Potassium 3.2 mmol/L (3.5-5.1); Total Bilirubin 0.8 mg/dL (0.2-1.3); Total Protein 5.3 g/dL (6.3-8.2)
--- NOTE | 2020-01-14 05:46 | XR ---
EXAMINATION TYPE: XR chest 1V portable DATE OF EXAM: 01/14/2020 COMPARISON: 11/08/2019 HISTORY: Fever TECHNIQUE: FINDINGS: There is some diffuse interstitial infiltrate in the lungs and more on the right side. Hear t is slightly enlarged. There is no heart failure. There is no pleural effusion. There are chest leads. The bony thorax is intact. IMPRESSION: Pulmonary interstitial edema and infiltrate is slightly worse on the right side compared to last exam .
[2020-01-14 05:57] LABS: INR 1.4 (<1.2); Partial Thromboplastin Time 30.5 sec (22.0-30.0); Prothrombin Time 14.2 sec (9.0-12.0)
[2020-01-14] MEDS ORDERED: PNEUMONIA PROTOCOL UTILIZED 1 EACH MISC PO PRN (07:00)
[2020-01-14] MEDS: SODIUM CHLORIDE 0.9% 1,000 ML IV SCH ×2 (07:40→10:04)
[2020-01-14] MEDS ORDERED: ENOXAPARIN 40 MG/0.4 ML SYRINGE SQ SCH (09:00)
[2020-01-14] MEDS: PIPERACILLIN-TAZOBACTAM 3.375 GM in SODIUM CHLORIDE 0.9% 100 ML IVPB SCH ×3 (10:03→23:02)
[2020-01-14] MEDS ORDERED: VANCOMYCIN IV PER PHARMACY 1 EACH MISC MISCELLANE PRN (10:52)
[2020-01-14] MEDS ORDERED: POTASSIUM CHLORIDE ER 20 MEQ TAB.ER PO STA (11:06)
[2020-01-14 11:36] LABS: Glucose,Whole Blood 127 mg/dL (75-99)
[2020-01-14] MEDS ORDERED: Acetaminophen-Codeine 300-30mg TAB PO PRN (12:25)
[2020-01-14] MEDS ORDERED: ACETAMINOPHEN TAB 325 MG TAB PO PRN (12:25)
--- NOTE | 2020-01-14 12:40 | P.HPIM ---
History of Present Illness This is a pleasant 64-year-old female was brought in because of cough and shortness of breath and fever patient is only comparing of fever but the patient was apparently having cough as per the family members. Patient does have lymp hopenia I do not have any LH available which was ordered. Patient chest x-rays consistent with atypical pneumonia. Appropriate particularly on the right side. Patient does have history of atrial fibrillation on metoprolol and on Eliquis. Patient will 6 L of falls and presently on 4 L of oxygen saturating at 95% patient doesn't use any oxygen at home, patient also is a former smoker. Review of Systems REVIEW OF SYSTEMS: CONSTITUTIONAL: No fever, no malaise, no fatigue. HEENT: No recent visual problems or hearing problems. Denied any sore throat. CARDIOVASCULAR: No chest pain, orthopnea, PND, no palpitations, no syncope. PULMONARY: As mentioned in HPI GASTROINTESTINAL: No diarrhea, no nausea, no vomiting, no abdominal pain. NEUROLOGICAL: No headaches, no weakness, no numbness. HEMATOLOGICAL: Denies any bleeding or petechiae. GENITOURINARY: Denies any burning micturition, frequency, or urgency. MUSCULOSKELETAL/RHEUMATOLOGICAL: Denies any joint pain, swelling, or any muscle pain. ENDOCRINE: Denies any polyuria or polydipsia. The rest of the 14-point review of systems is negative. Past Medical History Past Medical History: Atrial Fibrillation, CVA/TIA, Diabetes Mellitus, Hypertension Additional Past Medical History / Comment(s): cva x3- lt sided weakness, pt states she is unable to walk and is bedbound History of Any Multi-Drug Resistant Organisms: ESBL, MRSA Date of last positivie culture/infection: 10/28/19 ESBL 07/06/19 MRSA MDRO Source:: URINE Past Surgical History: Tubal Ligation Additional Past Surgical History / Comment(s): CAROTID ENDART TO CLEAN OUT NECK ARTERY LEFT; monitor car operator chip placed Past Anesthesia/Blood Transfusion Reactions: No Reported Reaction Past Psychological History: Depression Smoking Status: Former smoker Past Alcohol Use History: None Reported Past Drug Use History: None Reported - Past Family History Brother(s) Family Medical History: No Reported History Sister(s) Family Medical History: Diabetes Mellitus Additional Family Medical History / Comment(s): RENAL FAILURE, ABCESSES Mother Additional Family Medical History / Comment(s): Brain Aneurism. Father Family Medical History: Diabetes Mellitus Medications and Allergies Home Medications Medication Instructions Recorded Confirmed Type metFORMIN HCL [Glucophage] 500 mg PO AC-BID 05/30/16 01/14/20 History cloNIDine HCL [Catapres] 0.2 mg PO BID #60 tab 06/03/16 01/14/20 Rx Atorvastatin [Lipitor] 80 mg PO HS 03/22/19 01/14/20 History Losartan Potassium 100 mg PO DAILY 03/22/19 01/14/20 History Pantoprazole [Protonix] 40 mg PO DAILY 03/22/19 01/14/20 History Citalopram Hydrobromide [CeleXA] 40 mg PO HS 07/06/19 01/14/20 History Apixaban [Eliquis] 5 mg PO BID 10/09/19 01/14/20 History Metoprolol Tartrate [Lopressor] 25 mg PO DAILY 10/09/19 01/14/20 History Hydrocortisone Pr Cream 1 applic RECTAL BID #1 applic 10/31/19 01/14/20 Rx [Proctosol-Hc 2.5%] Acetaminophen Tab [Tylenol] 650 mg PO Q6HR PRN tab 11/12/19 01/14/20 Rx Hydrophilic Cream [Triad Cream] 1 applic TOPICAL DAILY #1 applic 11/12/19 01/14/20 Rx amLODIPine [Norvasc] 10 mg PO DAILY #30 tablet 11/12/19 01/14/20 Rx hydrALAZINE HCL [Apresoline] 50 mg PO TID #90 tab 11/12/19 01/14/20 Rx levETIRAcetam [Keppra] 1,000 mg PO Q12HR #60 tab 11/12/19 01/14/20 Rx Acetaminophen with Codeine 1 tab PO Q6H PRN 01/14/20 01/14/20 History [Tylenol w/codeine #3] Allergies Allergy/AdvReac Type Severity Reaction Status Date / Time No Known Allergies Allergy Verified 01/14/20 05:05 Physical Exam Vitals: Vital Signs Temp Pulse Pulse Resp BP BP Pulse Ox 01/14/20 11:59 98.8 F 79 16 180/70 95 01/14/20 09:43 98.3 F 18 131/72 100 01/14/20 08:10 98.3 F 72 18 131/72 100 01/14/20 07:15 71 16 117/61 98 01/14/20 06:15 99.9 F H 71 18 131/66 98 01/14/20 05:02 102.4 F H 88 20 136/50 96 Intake and Output 01/13/20 01/14/20 01/14/20 22:59 06:59 14:59 Other: Weight 117.934 kg 117.934 kg PHYSICAL EXAMINATION: GENERAL: The patient is alert and oriented x3, not in any acute distress. Well developed, well nourished. HEENT: Pupils are round and equally reacting to light. EOMI. No scleral icterus. No conjunctival pallor. Normocephalic, atraumatic. No pharyngeal erythema. No thyromegaly. CARDIOVASCULAR: S1 and S2 present. No murmurs, rubs, or gallops. PULMONARY: Decreased air entry with some basilar crackles on exam ABDOMEN: Soft, nontender, nondistended, normoactive bowel sounds. No palpable organomegaly. MUSCULOSKELETAL: No joint swelling or deformity. EXTREMITIES: No cyanosis, clubbing, or pedal edema. NEUROLOGICAL: Gross neurological examination did not reveal any focal deficits. SKIN: No rashes. Note: Because of COVID 19 isolation, some of the history and physical exam findings or indirect and obtained from nursing staff, and other physician examinations to avoid unnecessary contact with the patient. Results CBC & Chem 7: 01/14/20 05:15 01/14/20 05:15 Labs: Abnormal Lab Results - Last 24 Hours (Table) 01/14/20 01/14/20 01/14/20 Range/Units 05:15 05:15 05:15 RBC 3.67 L (3.80-5.40) m/uL Hgb 9.7 L (11.4-16.0) gm/dL Hct 30.5 L (34.0-46.0) % RDW 16.6 H (11.5-15.5) % Lymphocytes # 0.2 L (1.0-4.8) k/uL PT 14.2 H (9.0-12.0) sec INR 1.4 H (<1.2) APTT 30.5 H (22.0-30.0) sec Sodium 133 L (137-145) mmol/L Potassium 3.2 L (3.5-5.1) mmol/L Carbon Dioxide 21 L (22-30) mmol/L Glucose 138 H (74-99) mg/dL POC Glucose (mg/dL) (75-99) mg/dL Calcium 8.1 L (8.4-10.2) mg/dL Troponin I (0.000-0.034) ng/mL Total Protein 5.3 L (6.3-8.2) g/dL Albumin 2.5 L (3.5-5.0) g/dL 01/14/20 01/14/20 Range/Units 05:15 11:34 RBC (3.80-5.40) m/uL Hgb (11.4-16.0) gm/dL Hct (34.0-46.0) % RDW (11.5-15.5) % Lymphocytes # (1.0-4.8) k/uL PT (9.0-12.0) sec INR (<1.2) APTT (22.0-30.0) sec Sodium (137-145) mmol/L Potassium (3.5-5.1) mmol/L Carbon Dioxide (22-30) mmol/L Glucose (74-99) mg/dL POC Glucose (mg/dL) 127 H (75-99) mg/dL Calcium (8.4-10.2) mg/dL Troponin I 0.236 H* (0.000-0.034) ng/mL Total Protein (6.3-8.2) g/dL Albumin (3.5-5.0) g/dL Thrombosis Risk Factor Assmnt - Choose All That Apply Each Factor Represents 1 point: Medical pt on bed rest, Obesity (BMI >25) Other Risk Factors: No Other congenital or acquired thrombophilia - If yes, enter type in comment: No Thrombosis Risk Factor Assessment Total Risk Factor Score: 2 Thrombosis Risk Factor Assessment Level: Low Risk Assessment and Plan Plan: 7 acute hypoxic respiratory failure: Most probably secondary to COVID 19, testing is pending at this time. Patient is being treated for graft healthcare associated pneumonia patient is on broad-spectrum antibiotics Zosyn and vancomycin this is as per pulmonary pulmonary evaluated the patient. Patient doesn't have any significant orthopnea paroxysmal nocturnal dyspnea in spite of elevated BNP my suspicion is low for CHF patient had normal ejection fraction the past. Chest x-ray showed some interstitial infiltrate predominantly in the right side. -Sepsis secondary to Covid 19 most probably -Hypovolemic hyponatremia constricting interstitial infiltrate and elevated BNP will not start her on IV fluids and repeat labs tomorrow she can use to be hypo natremic patient will require IV fluids at the time because of limited physical exam I was unable to assess JVD Hypokalemia potassium will be supplemented -Atrial fibrillation paroxysmal patient is presently rate controlled patient was started on metoprolol or change to twice a day and clonidine will be held -Hypertension patient will be started on half a dose of losartan and amlodipine will be resumed hold off on hydralazine and clonidine -Type 2 diabetes mellitus DVT prophylaxis patient was started back on Eliquis and Lovenox will be discontinued
--- NOTE | 2020-01-14 12:50 | P.CONS ---
History of Present Illness - Reason for Consult Consult date: 01/14/20 - Chief Complaint Wound care - History of Present Illness This is a 64-year-old pleasant female being seen by the wound care center on for nonhealing ulceration to the coccyx. Patient was seen in October for the same ulceration. At that time it was a pressure injury stage I however it is no progressed to a stage III pressure ulcer. Patient has been receiving wound care at home from her daughter they've been applying Santyl to the site. Patient's past medical history is significant for CVA, diabetes, hypertension Review of Systems Review Of Systems: Constitutional: No fever at this time, no chills, no night sweats. No weight change. No weakness, fatigue or lethargy. No daytime sleepiness. Integumentary:reports wounds, no lesions. No rash or pruritus. No unusual bruising. No change in hair or nails. Past Medical History Past Medical History: Atrial Fibrillation, CVA/TIA, Diabetes Mellitus, Hypertension Additional Past Medical History / Comment(s): cva x3- lt sided weakness, pt states she is unable to walk and is bedbound History of Any Multi-Drug Resistant Organisms: ESBL, MRSA Year Discovered:: 10/28/19 ESBL 07/06/19 MRSA MDRO Source:: URINE Past Surgical History: Tubal Ligation Additional Past Surgical History / Comment(s): CAROTID ENDART TO CLEAN OUT NECK ARTERY LEFT; carton forming machine tender chip placed Past Anesthesia/Blood Transfusion Reactions: No Reported Reaction Past Psychological History: Depression Smoking Status: Former smoker Past Alcohol Use History: None Reported Past Drug Use History: None Reported - Past Family History Brother(s) Family Medical History: No Reported History Sister(s) Family Medical History: Diabetes Mellitus Additional Family Medical History / Comment(s): RENAL FAILURE, ABCESSES Mother Additional Family Medical History / Comment(s): Brain Aneurism. Father Family Medical History: Diabetes Mellitus Medications and Allergies Home Medications Medication Instructions Recorded Confirmed Type metFORMIN HCL [Glucophage] 500 mg PO AC-BID 05/30/16 01/14/20 History cloNIDine HCL [Catapres] 0.2 mg PO BID #60 tab 06/03/16 01/14/20 Rx Atorvastatin [Lipitor] 80 mg PO HS 03/22/19 01/14/20 History Losartan Potassium 100 mg PO DAILY 03/22/19 01/14/20 History Pantoprazole [Protonix] 40 mg PO DAILY 03/22/19 01/14/20 History Citalopram Hydrobromide [CeleXA] 40 mg PO HS 07/06/19 01/14/20 History Apixaban [Eliquis] 5 mg PO BID 10/09/19 01/14/20 History Metoprolol Tartrate [Lopressor] 25 mg PO DAILY 10/09/19 01/14/20 History Hydrocortisone Pr Cream 1 applic RECTAL BID #1 applic 10/31/19 01/14/20 Rx [Proctosol-Hc 2.5%] Acetaminophen Tab [Tylenol] 650 mg PO Q6HR PRN tab 11/12/19 01/14/20 Rx Hydrophilic Cream [Triad Cream] 1 applic TOPICAL DAILY #1 applic 11/12/19 01/14/20 Rx amLODIPine [Norvasc] 10 mg PO DAILY #30 tablet 11/12/19 01/14/20 Rx hydrALAZINE HCL [Apresoline] 50 mg PO TID #90 tab 11/12/19 01/14/20 Rx levETIRAcetam [Keppra] 1,000 mg PO Q12HR #60 tab 11/12/19 01/14/20 Rx Acetaminophen with Codeine 1 tab PO Q6H PRN 01/14/20 01/14/20 History [Tylenol w/codeine #3] Allergies Allergy/AdvReac Type Severity Reaction Status Date / Time No Known Allergies Allergy Verified 01/14/20 05:05 Physical Exam Vitals: Vital Signs Temp Pulse Pulse Resp BP BP Pulse Ox 01/14/20 11:59 98.8 F 79 16 180/70 95 01/14/20 09:43 98.3 F 18 131/72 100 01/14/20 08:10 98.3 F 72 18 131/72 100 01/14/20 07:15 71 16 117/61 98 01/14/20 06:15 99.9 F H 71 18 131/66 98 01/14/20 05:02 102.4 F H 88 20 136/50 96 Intake and Output 01/13/20 01/14/20 01/14/20 22:59 06:59 14:59 Other: Weight 117.934 kg 117.934 kg Physical exam: General Appearance: Alert, cooperative, no distress, appears stated age. Skin: Midline coccyx ulceration measuring approximately 2 x 1.5 x 1 cm, no bone exposure noted, medium amount of slough and nonviable tissue noted, minimal granulation seen throughout the wound bed, no undermining noted, periwound shows no abnormalities of moisture or discoloration all other Skin color, texture, tugor normal, no rashes or lesions. Neurologic: Alert oriented x3 Results CBC & Chem 7: 01/14/20 05:15 01/14/20 05:15 Labs: Abnormal Lab Results - Last 24 Hours (Table) 01/14/20 01/14/20 01/14/20 Range/Units 05:15 05:15 05:15 RBC 3.67 L (3.80-5.40) m/uL Hgb 9.7 L (11.4-16.0) gm/dL Hct 30.5 L (34.0-46.0) % RDW 16.6 H (11.5-15.5) % Lymphocytes # 0.2 L (1.0-4.8) k/uL PT 14.2 H (9.0-12.0) sec INR 1.4 H (<1.2) APTT 30.5 H (22.0-30.0) sec Sodium 133 L (137-145) mmol/L Potassium 3.2 L (3.5-5.1) mmol/L Carbon Dioxide 21 L (22-30) mmol/L Glucose 138 H (74-99) mg/dL POC Glucose (mg/dL) (75-99) mg/dL Calcium 8.1 L (8.4-10.2) mg/dL Troponin I (0.000-0.034) ng/mL Total Protein 5.3 L (6.3-8.2) g/dL Albumin 2.5 L (3.5-5.0) g/dL 01/14/20 01/14/20 Range/Units 05:15 11:34 RBC (3.80-5.40) m/uL Hgb (11.4-16.0) gm/dL Hct (34.0-46.0) % RDW (11.5-15.5) % Lymphocytes # (1.0-4.8) k/uL PT (9.0-12.0) sec INR (<1.2) APTT (22.0-30.0) sec Sodium (137-145) mmol/L Potassium (3.5-5.1) mmol/L Carbon Dioxide (22-30) mmol/L Glucose (74-99) mg/dL POC Glucose (mg/dL) 127 H (75-99) mg/dL Calcium (8.4-10.2) mg/dL Troponin I 0.236 H* (0.000-0.034) ng/mL Total Protein (6.3-8.2) g/dL Albumin (3.5-5.0) g/dL Assessment and Plan (1) Pressure ulcer of sacral region, stage 3 Current Visit: Yes Status: Acute Code(s): L89.153 - PRESSURE ULCER OF SACRAL REGION, STAGE 3 SNOMED Code(s): 361758001 (2) Type 2 diabetes mellitus with other skin ulcer Current Visit: No Status: Acute Code(s): E11.622 - TYPE 2 DIABETES MELLITUS WITH OTHER SKIN ULCER; L98.499 - NON-PRESSURE CHRONIC ULCER OF SKIN OF SITES W UNSP SEVERITY SNOMED Code(s): 914733137 Plan: Apply absorptive silver rope to the ulceration moistened, foam dressing change Monday and Monday. Discussed with patient the importance of followi ng up for wound care. The ulceration has declined since last hospitalization. Patient verbalized understanding. Discussed with patient the importance of offloading. Utilize a waffle cushion when sitting. Review surface algorithm. Thank you kindly for the consultation. Any questions please contact the wound care center DNP note has been reviewed and discussed with Dr. Ruvalcaba and the impression and plan of care has been directed as dictated.
[2020-01-14 13:26] LABS: Magnesium 0.8 mg/dL (1.6-2.3)
[2020-01-14] MEDS ORDERED: Magnesium Replacement Protocol 1 EACH MISC MISCELLANE PRN (13:32)
--- NOTE | 2020-01-14 13:39 | P.CRDCN ---
History of Present Illness Consult date: 01/14/20 Chief complaint: Cough , shortness of breath, fever History of present illness: This is a pleasant 64-year-old female who follows with Dr. Dru Alicea in the office. She has a known history of diabetes, hypertension, hyperlipidemia, prior CVA 3, prior left carotid endarterectomy, paroxysmal atrial fibrillation. Presented to the hospital with symptoms of progressively worsening shortness of breath with associated cough and fever. Influenza A and B were negative. She denied having any chest discomfort. Cardiology consultation was requested because of abnormality in troponin. Her temperature on arrival here was 102.4, blood pressure 136/50 with a heart rate in the 80s, 96% on a 15% nonrebreather. White blood cell count 5.5, hemoglobin 9.7, platelet count 206. D-dimer 0.5. Sodium 133, potassium 3.2, BUN 11, creatinine 0.8. Magnesium 0.8. Troponin 0.23. C-reactive protein 135, BNP level 4480. At the time of my examination, patient continues to have cough, and complains of feeling short of breath. Past Medical History Past Medical History: Atrial Fibrillation, CVA/TIA, Diabetes Mellitus, Hyperlipidemia, Hypertension Additional Past Medical History / Comment(s): cva x3- lt sided weakness, pt states she is unable to walk and is bedbound, morbid obesity History of Any Multi-Drug Resistant Organisms: ESBL, MRSA Date of last positivie culture/infection: 10/28/19 ESBL 07/06/19 MRSA MDRO Source:: URINE Past Surgical History: Tubal Ligation Additional Past Surgical History / Comment(s): CAROTID ENDART TO CLEAN OUT NECK ARTERY LEFT; fisher lampara net chip placed Past Anesthesia/Blood Transfusion Reactions: No Reported Reaction Past Psychological History: Depression Smoking Status: Former smoker Past Alcohol Use History: None Reported Past Drug Use History: None Reported - Past Family History Brother(s) Family Medical History: No Reported History Sister(s) Family Medical History: Diabetes Mellitus Additional Family Medical History / Comment(s): RENAL FAILURE, ABCESSES Mother Additional Family Medical History / Comment(s): Brain Aneurism. Father Family Medical History: Diabetes Mellitus Medications and Allergies Home Medications Medication Instructions Recorded Confirmed Type metFORMIN HCL [Glucophage] 500 mg PO AC-BID 05/30/16 01/14/20 History cloNIDine HCL [Catapres] 0.2 mg PO BID #60 tab 06/03/16 01/14/20 Rx Atorvastatin [Lipitor] 80 mg PO HS 03/22/19 01/14/20 History Losartan Potassium 100 mg PO DAILY 03/22/19 01/14/20 History Pantoprazole [Protonix] 40 mg PO DAILY 03/22/19 01/14/20 History Citalopram Hydrobromide [CeleXA] 40 mg PO HS 07/06/19 01/14/20 History Apixaban [Eliquis] 5 mg PO BID 10/09/19 01/14/20 History Metoprolol Tartrate [Lopressor] 25 mg PO DAILY 10/09/19 01/14/20 History Hydrocortisone Pr Cream 1 applic RECTAL BID #1 applic 10/31/19 01/14/20 Rx [Proctosol-Hc 2.5%] Acetaminophen Tab [Tylenol] 650 mg PO Q6HR PRN tab 11/12/19 01/14/20 Rx Hydrophilic Cream [Triad Cream] 1 applic TOPICAL DAILY #1 applic 11/12/19 01/14/20 Rx amLODIPine [Norvasc] 10 mg PO DAILY #30 tablet 11/12/19 01/14/20 Rx hydrALAZINE HCL [Apresoline] 50 mg PO TID #90 tab 11/12/19 01/14/20 Rx levETIRAcetam [Keppra] 1,000 mg PO Q12HR #60 tab 11/12/19 01/14/20 Rx Acetaminophen with Codeine 1 tab PO Q6H PRN 01/14/20 01/14/20 History [Tylenol w/codeine #3] Allergies Allergy/AdvReac Type Severity Reaction Status Date / Time No Known Allergies Allergy Verified 01/14/20 05:05 Physical Exam Vitals: Vital Signs Temp Pulse Pulse Resp BP BP Pulse Ox 01/14/20 11:59 98.8 F 79 16 180/70 95 01/14/20 09:43 98.3 F 72 18 131/72 100 01/14/20 07:15 71 16 117/61 98 01/14/20 06:15 99.9 F H 71 18 131/66 98 01/14/20 05:02 102.4 F H 88 20 136/50 96 Intake and Output 01/13/20 01/14/20 01/14/20 22:59 06:59 14:59 Other: # Voids 1 Weight 117.934 kg 117.934 kg PHYSICAL EXAMINATION: GENERAL: 64-year-old female in no acute distress at the time of my examination HEENT: Head is atraumatic, normocephalic. Pupils equal, round. Sclera anicte estefania. Conjunctiva are clear. Mucous membranes of the mouth are moist. Neck is supple. There is no elevated jugular venous pressure. No carotid bruit is heard. HEART EXAMINATION: Heart S1, S2 systolic murmur is heard . CHEST EXAMINATION: Lungs reveal coarse crackles bilaterally ABDOMEN: Soft, obese, nontender. Bowel sounds are heard. No organomegaly noted. EXTREMITIES: 2+ peripheral pulses with 1+ evidence of peripheral edema left leg much more swollen than the right, chronic . Swelling of the left hand noted. NEUROLOGIC patient is awake, alert and oriented X3, left-sided flaccid. Results 01/14/20 05:15 01/14/20 05:15 Cardiac Enzymes 01/14/20 01/14/20 01/14/20 Range/Units 05:15 05:15 12:30 AST 15 (14-36) U/L Lactate Dehydrogenase 777 H (313-618) U/L Troponin I 0.236 H* (0.000-0.034) ng/mL Coagulation 01/14/20 Range/Units 05:15 PT 14.2 H (9.0-12.0) sec APTT 30.5 H (22.0-30.0) sec CBC 01/14/20 Range/Units 05:15 WBC 5.5 (3.8-10.6) k/uL RBC 3.67 L (3.80-5.40) m/uL Hgb 9.7 L (11.4-16.0) gm/dL Hct 30.5 L (34.0-46.0) % Plt Count 206 (150-450) k/uL Comprehensive Metabolic Panel 01/14/20 Range/Units 05:15 Sodium 133 L (137-145) mmol/L Potassium 3.2 L (3.5-5.1) mmol/L Chloride 105 (98-107) mmol/L Carbon Dioxide 21 L (22-30) mmol/L BUN 11 (7-17) mg/dL Creatinine 0.81 (0.52-1.04) mg/dL Glucose 138 H (74-99) mg/dL Calcium 8.1 L (8.4-10.2) mg/dL AST 15 (14-36) U/L ALT 9 (4-34) U/L Alkaline Phosphatase 78 (38-126) U/L Total Protein 5.3 L (6.3-8.2) g/dL Albumin 2.5 L (3.5-5.0) g/dL Current Medications Generic Name Dose Route Start Last Admin Trade Name Freq PRN Reason Stop Dose Admin Acetaminophen 650 mg 01/14/20 12:25 Tylenol Tab PO Q6HR PRN Fever and/ or Pain Acetaminophen/Codeine Phosphate 1 each 01/14/20 12:25 Tylenol #3 PO Q6H PRN Pain Amlodipine Besylate 10 mg 01/15/20 09:00 Norvasc PO DAILY COUNTS INCLUDE 234 BEDS AT THE [facility] Apixaban 5 mg 01/14/20 21:00 Eliquis PO BID COUNTS INCLUDE 234 BEDS AT THE [facility] Atorvastatin Calcium 80 mg 01/14/20 21:00 Lipitor PO HS COUNTS INCLUDE 234 BEDS AT THE [facility] Citalopram Hydrobromide 40 mg 01/14/20 21:00 Celexa PO HS BRODY Hydrocortisone 1 applic 01/14/20 21:00 Proctosol-Hc 2.5% RECTAL BID COUNTS INCLUDE 234 BEDS AT THE [facility] Sodium Chloride 1,000 mls @ 20 mls/hr 01/14/20 07:00 01/14/20 10:04 Saline 0.9% IV 20 mls/hr .Q24H BRODY Administration Piperacillin Sod/Tazobactam 100 mls @ 25 mls/hr 01/14/20 08:00 01/14/20 10:03 Sod 3.375 gm/ Sodium Chloride IVPB 01/24/20 08:01 25 mls/hr Q8HR BRODY Administration Vancomycin HCl 1,750 mg/ 500 mls @ 167 mls/hr 01/14/20 12:00 Sodium Chloride IVPB Q16H BRODY Levetiracetam 1,000 mg 01/14/20 12:30 Keppra PO Q12HR COUNTS INCLUDE 234 BEDS AT THE [facility] Losartan Potassium 50 mg 01/15/20 09:00 Cozaar PO DAILY COUNTS INCLUDE 234 BEDS AT THE [facility] Metoprolol Tartrate 25 mg 01/14/20 12:30 Lopressor PO BID COUNTS INCLUDE 234 BEDS AT THE [facility] Miscellaneous Information 1 each 01/14/20 07:00 Pneumonia Protocol Utilized PO ONCE PRN Per Protocol Multi-Ingred Cream/Lotion/Oil/Oint 1 applic 01/15/20 09:00 Triad Cream TOPICAL DAILY BRODY Pantoprazole Sodium 40 mg 01/15/20 07:30 Protonix PO AC-BRKFST BRODY Intake and Output 01/13/20 01/14/20 01/14/20 22:59 06:59 14:59 Other: # Voids 1 Weight 117.934 kg 117.934 kg Patient Weight 01/15/20 06:59 Weight 117.934 kg 01/14/20 05:15 01/14/20 05:15 Assessment and Plan Plan: Assessment and plan #1 shortness of breath with associated cough and elevated fever, rule out COVID 19, influenza A and B- #2 hypomagnesemia, being replaced #3 acute on chronic UTIs #4 hypertension #5 diabetes #6 hyperlipidemia #7 paroxysmal atrial fibrillation #8 history of CVA 3 with residual left-sided flaccidity #9 history of MRSA and ESBL #10 mild congestive heart failure, diastolic acute on chronic #11 abnormal troponin, likely secondary to sepsis, we will obtain 2 subsequent troponins. Patient denies having any chest discomfort. Plan We will obtain an echocardiogram with Doppler study. Most recent echocardiogram with Doppler study was performed in October which revealed a normal left ventricular systolic function. Replace the patient's magnesium. Further recommendations to follow. DNP note has been reviewed, I agree with a documented findings and plan of care. Patient was seen and examined.
--- NOTE | 2020-01-14 13:44 | P.CNPUL ---
History of Present Illness Consult date: 01/14/20 Chief complaint: Pneumonia History of present illness: This is a 64-year-old female patient who is followed by Dr. Rhys Holley on an outpatient basis. She has a past medical history significant for a nonhealing stage III pressure ulcer to her coccyx, hypertension, [id number] diabetes mellitus, hypertension, hyperlipidemia, morbid obesity sepsis secondary to the ESBL producing urinary tract infection/E. coli septicemia, atrial fibrillation on eliquis for home anticoagulation and history of CVA with residual left-sided weakness. She presented to the emergency department here at [facility] via EMS with complaints of fever. Denies any complaints of cough, shortness of breath, body aches, pain, nausea or vomiting. Laboratory results on admission show a WBC count 5.5, Hgb 9.7, lymphocytes 0.2, PT 14.2, INR 1.4, PTT 30.5, potassium 3.2, CO2 21, BUN 11, creatinine 0.81, lactic acid 1.8, and troponin elevated at 0.236. Influenza swabs were negative for type A aortic type B and her COVID-19 test remains pending. A chest x-ray was completed which demonstrated pulmonary interstitial edema and infiltrate slightly worse on the right side compared to her last exam. 12-lead EKG showed normal sinus rhythm with premature atrial complexes with a heart rate of 82 BPM. Temperature on admission was 102.4F. Currently she is on 4 L nasal cannula with oxygen saturations 95%. The patient does report that she is feeling better today. Currently her lower temperature is 98.8F. Review of Systems Constitutional: Reports fever, Denies chronic headaches, Denies chronic pain, Denies night sweats, Denies poor appetite, Denies weight gain, Denies weight loss Ears, nose, mouth and throat: Denies headache, Denies nasal congestion, Denies neck lump, Denies sinus pain, Denies sinus pressure, Denies sore throat Cardiovascular: Denies chest pain, Denies dyspnea on exertion, Denies irregular heart beat, Denies leg edema, Denies lightheadedness, Denies rapid heart beat, Denies shortness of breath Respiratory: Denies congestion, Denies cough, Denies home oxygen, Denies respiratory infections, Denies sleep apnea, Denies wheezing Gastrointestinal: Denies abdominal pain, Denies belching, Denies bloating, Denies constipation, Denies diarrhea, Denies jaundice, Denies nausea, Denies vomiting Genitourinary: Denies difficulty voiding, Denies hematuria, Denies nocturia, Denies stress incontinence, Denies urge incontinence, Denies urgency Musculoskeletal: Denies frequent falls, Denies gait dysfunction, Denies leg numbness/tingling, Denies low back pain Integumentary: Denies change in hair/nails, Denies lesions, Denies pruritus Neurological: Denies headaches, Denies numbness, Denies weakness Endocrine: Denies low blood sugars Allergic/Immunologic: Denies seasonal allergies Past Medical History Past Medical History: Atrial Fibrillation, CVA/TIA, Diabetes Mellitus, Hype rlipidemia, Hypertension Additional Past Medical History / Comment(s): cva x3- lt sided weakness, pt states she is unable to walk and is bedbound, morbid obesity History of Any Multi-Drug Resistant Organisms: ESBL, MRSA Date of last positivie culture/infection: 10/28/19 ESBL 07/06/19 MRSA MDRO Source:: URINE Past Surgical History: Tubal Ligation Additional Past Surgical History / Comment(s): CAROTID ENDART TO CLEAN OUT NECK ARTERY LEFT; quality assurance monitor body chip placed Past Anesthesia/Blood Transfusion Reactions: No Reported Reaction Past Psychological History: Depression Smoking Status: Former smoker Past Alcohol Use History: None Reported Past Drug Use History: None Reported - Past Family History Brother(s) Family Medical History: No Reported History Sister(s) Family Medical History: Diabetes Mellitus Additional Family Medical History / Comment(s): RENAL FAILURE, ABCESSES Mother Additional Family Medical History / Comment(s): Brain Aneurism. Father Family Medical History: Diabetes Mellitus Medications and Allergies Home Medications Medication Instructions Recorded Confirmed Type metFORMIN HCL [Glucophage] 500 mg PO AC-BID 05/30/16 01/14/20 History cloNIDine HCL [Catapres] 0.2 mg PO BID #60 tab 06/03/16 01/14/20 Rx Atorvastatin [Lipitor] 80 mg PO HS 03/22/19 01/14/20 History Losartan Potassium 100 mg PO DAILY 03/22/19 01/14/20 History Pantoprazole [Protonix] 40 mg PO DAILY 03/22/19 01/14/20 History Citalopram Hydrobromide [CeleXA] 40 mg PO HS 07/06/19 01/14/20 History Apixaban [Eliquis] 5 mg PO BID 10/09/19 01/14/20 History Metoprolol Tartrate [Lopressor] 25 mg PO DAILY 10/09/19 01/14/20 History Hydrocortisone Pr Cream 1 applic RECTAL BID #1 applic 10/31/19 01/14/20 Rx [Proctosol-Hc 2.5%] Acetaminophen Tab [Tylenol] 650 mg PO Q6HR PRN tab 11/12/19 01/14/20 Rx Hydrophilic Cream [Triad Cream] 1 applic TOPICAL DAILY #1 applic 11/12/19 01/14/20 Rx amLODIPine [Norvasc] 10 mg PO DAILY #30 tablet 11/12/19 01/14/20 Rx hydrALAZINE HCL [Apresoline] 50 mg PO TID #90 tab 11/12/19 01/14/20 Rx levETIRAcetam [Keppra] 1,000 mg PO Q12HR #60 tab 11/12/19 01/14/20 Rx Acetaminophen with Codeine 1 tab PO Q6H PRN 01/14/20 01/14/20 History [Tylenol w/codeine #3] Allergies Allergy/AdvReac Type Severity Reaction Status Date / Time No Known Allergies Allergy Verified 01/14/20 05:05 Physical Exam Vitals: Vital Signs Temp Pulse Pulse Resp BP BP Pulse Ox 01/14/20 11:59 98.8 F 79 16 180/70 95 01/14/20 09:43 98.3 F 18 131/72 100 01/14/20 08:10 98.3 F 72 18 131/72 100 01/14/20 07:15 71 16 117/61 98 01/14/20 06:15 99.9 F H 71 18 131/66 98 01/14/20 05:02 102.4 F H 88 20 136/50 96 Intake and Output 01/13/20 01/14/20 01/14/20 22:59 06:59 14:59 Other: # Voids 1 Weight 117.934 kg 117.934 kg 64-year-old female patient who is awake, alert and oriented 3. Current oxygen saturations 100% on 6 L nasal cannula, comfortable and is no apparent distress. - Constitutional General appearance: cooperative - EENT Normocephalic, atraumatic Eyes: PERRLA, no scleral icterus - Neck Neck is supple, no lymphadenopathy. No thyroidomegaly - Respiratory Essentially clear throughout, with scattered crackles to her right lower lobe. Respirations are symmetrical and nonlabored. - Cardiovascular Regular rhythm and rate. S1 and S2 present, negative for S3, gallop or murmur. - Gastrointestinal Abdomen is soft, nontender and nondistended. Normal bowel sounds present all 4 abdominal quadrants. No organomegaly. General gastrointestinal: no hepatomegaly, no splenomegaly - Integumentary Integumentary: no rash, ulcer - Neurologic Neurologic: CNII-XII intact - Psychiatric Psychiatric: A&O x's 3, appropriate affect, intact judgment & insight Results - Laboratory Findings CBC and BMP: 01/14/20 05:15 01/14/20 05:15 PT/INR, D-dimer PT 14.2 sec (9.0-12.0) H 01/14/20 05:15 INR 1.4 (<1.2) H 01/14/20 05:15 D-Dimer 0.56 mg/L FEU (<0.60) 01/14/20 12:24 Abnormal lab findings: Abnormal Labs 01/14/20 01/14/20 01/14/20 05:15 05:15 05:15 RBC 3.67 L Hgb 9.7 L Hct 30.5 L RDW 16.6 H Lymphocytes # 0.2 L PT 14.2 H INR 1.4 H APTT 30.5 H Sodium 133 L Potassium 3.2 L Carbon Dioxide 21 L Glucose 138 H POC Glucose (mg/dL) Calcium 8.1 L Troponin I Total Protein 5.3 L Albumin 2.5 L 01/14/20 01/14/20 05:15 11:34 RBC Hgb Hct RDW Lymphocytes # PT INR APTT Sodium Potassium Carbon Dioxide Glucose POC Glucose (mg/dL) 127 H Calcium Troponin I 0.236 H* Total Protein Albumin - Diagnostic Findings Chest x-ray: report reviewed, image reviewed Assessment and Plan Assessment: 1. Acute pulmonary interstitial edema and infiltrate. Possibly of Covid 19 infection is being considered, patient has been tested and the results are pending. 2. Fever, secondary to possible Covid 19 3. History of previous CVA 3 4. History of paroxysmal atrial fibrillation on eliquis for home anticoagulation 5. Diabetes mellitus 6. Hypertension 7. Hyperlipidemia 8. 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 The patient was seen and examined at her bedside with Dr. Sanchez. 2. COVID-19 markers ordered. LDH, d-dimer, ferritin level and pro calcitonin level. 3. Awaiting Covid 19 results. Continue droplet precautions. 4. Discontinue Levaquin and start vancomycin for pharmacy to dose due to hair history of MRSA and ESBL. 5. Replace magnesium per protocol. Repeat magnesium level, BMP and CBC in the a.m. 6. Repeat chest x-ray in the a.m. 7. More recommendations to follow based on patient's clinical course. The patient was seen and examined with Dr. Arellano, the plan and assessment were discussed. Time with Patient: Greater than 30
[2020-01-14] MEDS: VANCOMYCIN 1,750 MG in SODIUM CHLORIDE 0.9% 500 ML 500 ML IVPB SCH (13:46)
[2020-01-14] MEDS: METOPROLOL TARTRATE 25 MG TAB PO SCH ×2 (13:46→20:28)
[2020-01-14] MEDS: MAGNESIUM SULFATE-D5W PMX 1 GM in DEXTROSE/WATER 1 100ML.BAG IVPB SCH ×4 (13:46→18:55)
[2020-01-14] MEDS: levETIRAcetam 500 MG TAB PO SCH ×2 (13:46→20:27)
[2020-01-14] MEDS ORDERED: LEVOFLOXACIN 750MG-D5W PMX 750 MG in DEXTROSE/WATER 1 150ML.BAG IVPB SCH (14:00)
[2020-01-14 16:44] LABS: Glucose,Whole Blood 146 mg/dL (75-99)
[2020-01-14 18:29] LABS: Ferritin 22.1 ng/mL (10.0-291.0)
[2020-01-14] MEDS: ATORVASTATIN 80 MG TAB PO SCH (20:27)
[2020-01-14] MEDS: CITALOPRAM HYDROBROMIDE 20 MG TAB PO SCH (20:27)
[2020-01-14] MEDS: APIXABAN 5 MG TAB PO SCH (20:27)
[2020-01-14] MEDS: HYDROCORTISONE 2.5% RECTAL CREAM 30 GM TUBE RECTAL SCH (20:30)
[2020-01-14 20:46] LABS: Glucose,Whole Blood 137 mg/dL (75-99)
[2020-01-15] MEDS: VANCOMYCIN 1,750 MG in SODIUM CHLORIDE 0.9% 500 ML 500 ML IVPB SCH (03:29)
[2020-01-15 06:10] LABS: Glucose,Whole Blood 119 mg/dL (75-99)
[2020-01-15] MEDS: PANTOPRAZOLE 40 MG TABLET PO SCH (06:11)
[2020-01-15] MEDS: INSULIN ASPART (NovoLOG) 100 UNIT/ML VIAL SQ SCH ×4 (06:14→20:57)
[2020-01-15 06:18] LABS: Anisocytosis Slight; Basophils % (A) 0 %; Eosinophils % (A) 0 %; HGB 9.2 gm/dL (11.4-16.0); Hypochromasia Slight; Lymphocytes % (A) 12 %; MCH 25.9 pg (25.0-35.0); MCHC 30.8 g/dL (31.0-37.0); MCV 84.1 fL (80.0-100.0); Mean Platelet Volume 8.4; Monocytes # (A) 0.5 k/uL (0-1.0); Monocytes % (A) 6 %; Neutrophils # (A) 6.4 k/uL (1.3-7.7); Neutrophils % (A) 79 %; Platelet Count 214 k/uL (150-450); RBC 3.56 m/uL (3.80-5.40); RDW 16.8 % (11.5-15.5); WBC 8.1 k/uL (3.8-10.6)
[2020-01-15] MEDS ORDERED: LEVOFLOXACIN 750MG-D5W PMX 750 MG in DEXTROSE/WATER 1 150ML.BAG IVPB SCH (08:00)
--- NOTE | 2020-01-15 08:03 | XR ---
EXAMINATION TYPE: XR chest 1V portable DATE OF EXAM: 01/15/2020 HISTORY: Shortness of breath. COMPARISON: 01/14/2020 TECHNIQUE: Single view of the chest is submitted. FINDINGS: Demonstrated are scattered senescent parenchymal change. Improving infiltrate identified throughout the right lung and left perihilar regions. Near complete r esolution suggested. The heart is stable. Hilar and mediastinal structures are within normal limits. Degenerative changes are seen of the dorsal spine. IMPRESSION: 1. Improving infiltrate identified throughout the right lung and left perihilar regions. Near comple te resolution suggested.
--- NOTE | 2020-01-15 08:26 | ECHOF ---
Referral Reason:elevated troponin MEASUREMENTS -------- HEIGHT: 162.6 cm WEIGHT: 117.9 kg BP: RVIDd: 2.8 cm (< 3.3) IVSd: 1.2 cm (0.6 - 1.1) LVIDd: 4.5 cm (3.9 - 5.3) LVPWd: 1.4 cm (0.6 - 1.1) IVSs: 2.0 cm LVIDs: 1.7 cm LVPWs: 1.7 cm Ao Diam: 2.7 cm (2.0 - 3.7) AV Cusp: 1.8 cm (1.5 - 2.6) LA Diam: 4.0 cm (2.7 - 3.8) MV EXCURSION: 18.048 mm (> 18.000) MV EF SLOPE: 77 mm/s (70 - 150) EPSS: 0.4 cm MV E Kanu: 1.11 m/s MV DecT: 207 ms MV A Kanu: 1.07 m/s MV E/A Ratio: 1.04 AR PHT: 234 ms RAP: 5.00 mmHg RVSP: 9.42 mmHg FINDINGS -------- Sinus rhythm. This was a technically difficult study with suboptimal views. The left ventricular size is normal. There is mild concentric left ventricular hypertrophy. Overa ll left ventricular systolic function is normal with, an EF between 55 - 60 %. The right ventricle is normal in size. The left atrium is mildly dilated. The right atrial size is normal. Lumason used There is mild aortic valve sclerosis. There is mild aortic regurgitation. Moderate mitral annular calcification present. Mild mitral regurgitation is present. The tricuspid valve appears structurally normal. Mild tricuspid regurgitation present. Right vent ricular systolic pressure is normal at < 35 mmHg. The pulmonic valve was not well visualized. Trace/mild (physiologic) pulmonic regurgitation. The aortic root size is normal. IVC Not well visulized. There is a trivial pericardial effusion present. CONCLUSIONS -------- 1. This was a technically difficult study with suboptimal views. 2. There is mild concentric left ventricular hypertrophy. 3. Overall left ventricular systolic function is normal with, an EF between 55 - 60 %. 4. The left atrium is mildly dilated. 5. Lumason used 6. There is mild aortic valve sclerosis. 7. There is mild aortic regurgitation. 8. Moderate mitral annular calcification present. 9. Mild mitral regurgitation is present. 10. Mild tricuspid regurgitation present. 11. There is a trivial pericardial effusion present. HOUSEKEEPING ASSOCIATE: Sosa Ramos RDCS
[2020-01-15] MEDS: amLODIPine 10 MG TAB PO SCH (08:39)
[2020-01-15] MEDS: APIXABAN 5 MG TAB PO SCH ×2 (08:39→20:23)
[2020-01-15] MEDS: levETIRAcetam 500 MG TAB PO SCH ×2 (08:39→20:23)
[2020-01-15] MEDS: METOPROLOL TARTRATE 25 MG TAB PO SCH ×2 (08:39→20:23)
[2020-01-15] MEDS: SODIUM CHLORIDE 0.9% 1,000 ML IV SCH (08:40)
[2020-01-15] MEDS: PIPERACILLIN-TAZOBACTAM 3.375 GM in SODIUM CHLORIDE 0.9% 100 ML IVPB SCH ×3 (08:46→22:53)
[2020-01-15] MEDS: HYDROCORTISONE 2.5% RECTAL CREAM 30 GM TUBE RECTAL SCH ×2 (08:47→20:23)
[2020-01-15] MEDS: HYDROPHILIC CREAM 180 GM TUBE TOPICAL SCH (08:48)
[2020-01-15] MEDS ORDERED: LOSARTAN 50 MG TAB PO SCH (09:00)
[2020-01-15] MEDS ORDERED: Magnesium Replacement Protocol 1 EACH MISC MISCELLANE PRN (09:34)
[2020-01-15 10:38] LABS: Potassium 3.7 mmol/L (3.5-5.1)
[2020-01-15 10:39] LABS: Calcium 8.2 mg/dL (8.4-10.2)
[2020-01-15] MEDS: MAGNESIUM SULFATE-D5W PMX 1 GM in DEXTROSE/WATER 1 100ML.BAG IVPB SCH ×2 (11:25→13:02)
[2020-01-15 11:43] LABS: Glucose,Whole Blood 108 mg/dL (75-99)
--- NOTE | 2020-01-15 11:47 | P.PN ---
Subjective Progress Note Date: 01/15/20 This is a pleasant 64-year-old female who follows with Dr. Dru Alicea in the office. She has a known history of diabetes, hypertension, hyperlipidemia, prior CVA 3, prior left carotid endarterectomy, paroxysmal atrial fibrillation. Presented to the hospital with symptoms of progressively worsening shortness of breath with associated cough and fever. Influenza A and B were negative. She denied having any chest discomfort. Cardiology consultation was requested because of abnormality in troponin. Her temperature on arrival here was 102.4, blood pressure 136/50 with a heart rate in the 80s, 96% on a 15% nonrebreather. White blood cell count 5.5, hemoglobin 9.7, platelet count 206. D-dimer 0.5. Sodium 133, potassium 3.2, BUN 11, creatinine 0.8. Magnesium 0.8. Troponin 0.23. C-reactive protein 135, BNP level 4480. At the time of my examination, patient continues to have cough, and complains of feeling short of breath. 01/15/2020 Patient seen and examined this morning, continues to feel short of breath however improved somewhat from yesterday. Blood pressure 130/60 with a heart rate in the 60s. Afebrile this morning. White blood cell count 8.1, hemoglobin 9.2, platelet count 214. Sodium 135, potassium 3.7, BUN 16, creatinine 1.0, magnesium 1.6 which is being replaced. Echocardiogram with Doppler study reveals a normal left ventricular systolic function. Objective - Vital Signs Vital signs: Vital Signs Temp 98.1 F 01/15/20 11:34 Pulse 67 01/15/20 11:34 Resp 16 01/15/20 11:34 BP 151/70 01/15/20 11:34 Pulse Ox 99 01/15/20 11:34 Intake & Output 01/14/20 01/15/20 01/15/20 18:59 06:59 18:59 Intake Total 1040 910 437 Output Total 1 Balance 1039 910 437 Weight 117.934 kg 119 kg Intake: IV 10 Invasive Line 1 10 Intake, IV Titration 1040 260 100 Amount Magnesium Sulfate-D5w Pmx 300 1 gm In Dextrose/Water 1 100ml.bag @ 100 mls/hr IVPB Q1H [facility] Rx#: [id number] Piperacillin-Tazobactam 3 100 100 100 .375 gm In Sodium Chloride 0.9% 100 ml @ 25 mls/hr IVPB Q8HR [facility] Rx# :[id number] Sodium Chloride 0.9% 1, 140 160 000 ml @ 20 mls/hr IV . Q24H [facility] Rx#:[id number] Vancomycin 1,750 mg In 500 Sodium Chloride 0.9% 500 ml 500 ml @ 167 mls/hr IVPB Q16H [facility] Rx#: [id number] Oral 640 337 Output: Stool 1 Other: Voiding Method Diaper Diaper Diaper # Voids 1 0 1 - Exam PHYSICAL EXAMINATION: GENERAL: 64-year-old female in no acute distress at the time of my examination HEENT: Head is atraumatic, normocephalic. Pupils equal, round. Sclera anicteric. Conjunctiva are clear. Mucous membranes of the mouth are moist. Nec k is supple. There is no elevated jugular venous pressure. No carotid bruit is heard. HEART EXAMINATION: Heart S1, S2 systolic murmur is heard . CHEST EXAMINATION: Lungs reveal coarse crackles bilaterally ABDOMEN: Soft, obese, nontender. Bowel sounds are heard. No organomegaly noted. EXTREMITIES: 2+ peripheral pulses with 1+ evidence of peripheral edema left leg much more swollen than the right, chronic . Swelling of the left hand noted. NEUROLOGIC patient is awake, alert and oriented X3, left-sided flaccid. - Labs CBC & Chem 7: 01/15/20 05:29 01/15/20 05:29 Labs: Abnormal Lab Results - Last 24 Hours (Table) 01/14/20 01/14/20 01/14/20 Range/Units 05:15 12:30 16:41 RBC (3.80-5.40) m/uL Hgb (11.4-16.0) gm/dL Hct (34.0-46.0) % MCHC (31.0-37.0) g/dL RDW (11.5-15.5) % Sodium 133 L (137-145) mmol/L Potassium 3.2 L (3.5-5.1) mmol/L Carbon Dioxide 21 L (22-30) mmol/L Glucose 138 H (74-99) mg/dL POC Glucose (mg/dL) 146 H (75-99) mg/dL Calcium 8.1 L (8.4-10.2) mg/dL Magnesium 0.8 L* (1.6-2.3) mg/dL Lactate Dehydrogenase 777 H (313-618) U/L C-Reactive Protein 135.0 H (<10.0) mg/L Total Protein 5.3 L (6.3-8.2) g/dL Albumin 2.5 L (3.5-5.0) g/dL 01/14/20 01/15/20 01/15/20 Range/Units 20:45 05:29 05:29 RBC 3.56 L (3.80-5.40) m/uL Hgb 9.2 L (11.4-16.0) gm/dL Hct 30.0 L (34.0-46.0) % MCHC 30.8 L (31.0-37.0) g/dL RDW 16.8 H (11.5-15.5) % Sodium 135 L (137-145) mmol/L Potassium (3.5-5.1) mmol/L Carbon Dioxide 20 L (22-30) mmol/L Glucose 105 H (74-99) mg/dL POC Glucose (mg/dL) 137 H (75-99) mg/dL Calcium 8.2 L (8.4-10.2) mg/dL Magnesium (1.6-2.3) mg/dL Lactate Dehydrogenase (313-618) U/L C-Reactive Protein (<10.0) mg/L Total Protein (6.3-8.2) g/dL Albumin (3.5-5.0) g/dL 01/15/20 01/15/20 Range/Units 06:08 11:41 RBC (3.80-5.40) m/uL Hgb (11.4-16.0) gm/dL Hct (34.0-46.0) % MCHC (31.0-37.0) g/dL RDW (11.5-15.5) % Sodium (137-145) mmol/L Potassium (3.5-5.1) mmol/L Carbon Dioxide (22-30) mmol/L Glucose (74-99) mg/dL POC Glucose (mg/dL) 119 H 108 H (75-99) mg/dL Calcium (8.4-10.2) mg/dL Magnesium (1.6-2.3) mg/dL Lactate Dehydrogenase (313-618) U/L C-Reactive Protein (<10.0) mg/L Total Protein (6.3-8.2) g/dL Albumin (3.5-5.0) g/dL Microbiology - Last 24 Hours (Table) 01/14/20 05:15 Blood Culture Gram Stain - Preliminary Blood Blood Culture - Preliminary Klebsiella pneumoniae 01/14/20 05:15 Blood Culture - Final Blood Assessment and Plan Plan: Assessment and plan #1 shortness of breath with associated cough and elevated fever, rule out COVID 19, influenza A and B- #2 hypomagnesemia, being replaced #3 acute on chronic UTIs #4 hypertension #5 diabetes #6 hyperlipidemia #7 paroxysmal atrial fibrillation #8 history of CVA 3 with residual left-sided flaccidity #9 history of MRSA and ESBL #10 mild congestive heart failure, diastolic acute on chronic #11 abnormal troponin, likely secondary to sepsis, we will obtain 2 subsequent troponins. Patient denies having any chest discomfort. Plan Echocardiogram with Doppler study revealed a normal left ventricular systolic function. Patient's presentation does not appear to be cardiac in nature, appears to be more related to pneumonia and possible Covid. We will follow this patient along with you now on an as-needed basis only, please don't hesitate to call if you have any questions at all. DNP note has been reviewed, I agree with a documented findings and plan of care. Patient was seen and examined.
[2020-01-15] MEDS ORDERED: LOSARTAN 50 MG TAB PO STA (11:54)
--- NOTE | 2020-01-15 11:55 | P.PN ---
Subjective 64-year-old female was brought in because of cough and shortness of breath and fever patient is only comparing of fever but the patient was apparently having cough as per the family members. Patient does have lymphopenia I do not have any LH available which was ordered. Patient chest x-rays consistent with atypical pneumonia. Appropriate particularly on the right side. Patient does have history of atrial fibrillation on metoprolol and on Eliquis. Patient will 6 L of falls and presently on 4 L of oxygen saturating at 95% patient doesn't u se any oxygen at home, patient also is a former smoker. 01/15/2020 Patient denied any complaints today patient is feeling much better patient on Zyrtec requirements have come down but still requiring oxygen. Constitutional: Denied any fatigue denied any fever. Cardio vascular: denied any chest pain, palpitations Gastrointestinal denied any nausea vomiting Pulmonary: Denied any shortness of breath cough Neurologic denied any new focal deficits All inpatient medications were reviewed and appropriate changes in these medications as dictated in the interval history and assessment and plan. Objective - Vital Signs Vital signs: Vital Signs Temp 98.1 F 01/15/20 11:34 Pulse 67 01/15/20 11:34 Resp 16 01/15/20 11:34 BP 151/70 01/15/20 11:34 Pulse Ox 99 01/15/20 11:34 Intake & Output 01/14/20 01/15/20 01/15/20 18:59 06:59 18:59 Intake Total 1040 910 437 Output Total 1 Balance 1039 910 437 Weight 117.934 kg 119 kg Intake: IV 10 Invasive Line 1 10 Intake, IV Titration 1040 260 100 Amount Magnesium Sulfate-D5w Pmx 300 1 gm In Dextrose/Water 1 100ml.bag @ 100 mls/hr IVPB Q1H [facility] Rx#: [id number] Piperacillin-Tazobactam 3 100 100 100 .375 gm In Sodium Chloride 0.9% 100 ml @ 25 mls/hr IVPB Q8HR [facility] Rx# :[id number] Sodium Chloride 0.9% 1, 140 160 000 ml @ 20 mls/hr IV . Q24H [facility] Rx#:[id number] Vancomycin 1,750 mg In 500 Sodium Chloride 0.9% 500 ml 500 ml @ 167 mls/hr IVPB Q16H [facility] Rx#: [id number] Oral 640 337 Output: Stool 1 Other: Voiding Method Diaper Diaper Diaper # Voids 1 0 1 - Exam PHYSICAL EXAMINATION: GENERAL: The patient is alert and oriented x3, not in any acute distress. Well developed, well nourished. HEENT: Pupils are round and equally reacting to light. EOMI. No scleral icterus. No conjunctival pallor. Normocephalic, atraumatic. No pharyngeal erythema. No thyromegaly. CARDIOVASCULAR: S1 and S2 present. No murmurs, rubs, or gallops. PULMONARY: Decreased air entry with some basilar crackles on exam ABDOMEN: Soft, nontender, nondistended, normoactive bowel sounds. No palpable organomegaly. MUSCULOSKELETAL: No joint swelling or deformity. EXTREMITIES: No cyanosis, clubbing, or pedal edema. NEUROLOGICAL: Gross neurological examination did not reveal any focal deficits. SKIN: No rashes. Note: Because of COVID 19 isolation, some of the history and physical exam findings or indirect and obtained from nursing staff, and other physician examinations to avoid unnecessary contact with the patient. - Labs CBC & Chem 7: 01/15/20 05:29 01/15/20 05:29 Labs: Abnormal Lab Results - Last 24 Hours (Table) 01/14/20 01/14/20 01/14/20 Range/Units 05:15 12:30 16:41 RBC (3.80-5.40) m/uL Hgb (11.4-16.0) gm/dL Hct (34.0-46.0) % MCHC (31.0-37.0) g/dL RDW (11.5-15.5) % Sodium 133 L (137-145) mmol/L Potassium 3.2 L (3.5-5.1) mmol/L Carbon Dioxide 21 L (22-30) mmol/L Glucose 138 H (74-99) mg/dL POC Glucose (mg/dL) 146 H (75-99) mg/dL Calcium 8.1 L (8.4-10.2) mg/dL Magnesium 0.8 L* (1.6-2.3) mg/dL Lactate Dehydrogenase 777 H (313-618) U/L C-Reactive Protein 135.0 H (<10.0) mg/L Total Protein 5.3 L (6.3-8.2) g/dL Albumin 2.5 L (3.5-5.0) g/dL 01/14/20 01/15/20 01/15/20 Range/Units 20:45 05:29 05:29 RBC 3.56 L (3.80-5.40) m/uL Hgb 9.2 L (11.4-16.0) gm/dL Hct 30.0 L (34.0-46.0) % MCHC 30.8 L (31.0-37.0) g/dL RDW 16.8 H (11.5-15.5) % Sodium 135 L (137-145) mmol/L Potassium (3.5-5.1) mmol/L Carbon Dioxide 20 L (22-30) mmol/L Glucose 105 H (74-99) mg/dL POC Glucose (mg/dL) 137 H (75-99) mg/dL Calcium 8.2 L (8.4-10.2) mg/dL Magnesium (1.6-2.3) mg/dL Lactate Dehydrogenase (313-618) U/L C-Reactive Protein (<10.0) mg/L Total Protein (6.3-8.2) g/dL Albumin (3.5-5.0) g/dL 01/15/20 01/15/20 Range/Units 06:08 11:41 RBC (3.80-5.40) m/uL Hgb (11.4-16.0) gm/dL Hct (34.0-46.0) % MCHC (31.0-37.0) g/dL RDW (11.5-15.5) % Sodium (137-145) mmol/L Potassium (3.5-5.1) mmol/L Carbon Dioxide (22-30) mmol/L Glucose (74-99) mg/dL POC Glucose (mg/dL) 119 H 108 H (75-99) mg/dL Calcium (8.4-10.2) mg/dL Magnesium (1.6-2.3) mg/dL Lactate Dehydrogenase (313-618) U/L C-Reactive Protein (<10.0) mg/L Total Protein (6.3-8.2) g/dL Albumin (3.5-5.0) g/dL Microbiology - Last 24 Hours (Table) 01/14/20 05:15 Blood Culture Gram Stain - Preliminary Blood Blood Culture - Preliminary Klebsiella pneumoniae 01/14/20 05:15 Blood Culture - Final Blood Assessment and Plan Plan: 7 acute hypoxic respiratory failure: Most probably secondary to COVID 19, testing is pending at this time. Patient is being treated for graft healthcare associated pneumonia patient is on broad-spectrum antibiotics Zosyn and vancomycin this is as per pulmonary pulmonary evaluated the patient. Patient doesn't have any significant orthopnea paroxysmal nocturnal dyspnea in spite of elevated BNP my suspicion is low for CHF patient had normal ejection fraction the past. Chest x-ray showed some interstitial infiltrate predominantly in the right side. -Sepsis secondary to Covid 19 most probably hyponatremic improved probably hypovolemic hyponatremia improved now Hypokalemia potassium was supplemented -Atrial fibrillation paroxysmal patient is presently rate controlled patient was started on metoprolol or change to twice a day and clonidine is being held patient heart rate is well controlled and the patient is on losartan dose of which will be resumed to home dose -Hypertension patient will be started on half a dose of losartan and amlodipine will be resumed hold off on hydralazine and clonidine -Type 2 diabetes mellitus DVT prophylaxis patient was started back on Eliquis and Lovenox will be discontinued
--- NOTE | 2020-01-15 12:49 | P.PN ---
Subjective Progress Note Date: 01/15/20 Principal diagnosis: Pneumonia, rule out Covid 19 This is a 64-year-old female patient who is followed by Dr. Rhys Holley on an outpatient basis. She has a past medical history significant for a nonhealing stage III pressure ulcer to her coccyx, hypertension, non-insulin- dependent diabetes mellitus, hypertension, hyperlipidemia, morbid obesity sepsis secondary to the ESBL producing urinary tract infection/E. coli septicemia, atrial fibrillation on eliquis for home anticoagulation and history of CVA with residual left-sided weakness. She presented to the emergency department here at [facility] via EMS with complaints of fever. Denies any comp laints of cough, shortness of breath, body aches, pain, nausea or vomiting. Laboratory results on admission show a WBC count 5.5, Hgb 9.7, lymphocytes 0.2, PT 14.2, INR 1.4, PTT 30.5, potassium 3.2, CO2 21, BUN 11, creatinine 0.81, lactic acid 1.8, and troponin elevated at 0.236. Influenza swabs were negative for type A aortic type B and her COVID-19 test remains pending. A chest x-ray was completed which demonstrated pulmonary interstitial edema and infiltrate slightly worse on the right side compared to her last exam. 12-lead EKG showed normal sinus rhythm with premature atrial complexes with a heart rate of 82 BPM. Temperature on admission was 102.4F. Currently she is on 4 L nasal cannula with oxygen saturations 95%. The patient does report that she is feeling better today. Currently her lower temperature is 98.8F. 01/15/2020, the patient was seen at her bedside on the cardiac stepdown unit with Dr. Arellano. The patient reports she is feeling much better today. Oxygen saturations are 93% on room air. She has been afebrile in the last 24 hours. Her chest x-ray today is slightly improved in comparison to her chest x-ray from yesterday. The chest x-ray report shows improving infiltrate identified throughout the right lung and left perihilar regions, near complete resolution suggested. Her blood culture preliminary results show Klebsiella pneumoniae. Laboratory results this morning show a WBC count 8.1, Hgb 9.2, sodium 135, potassium 3.7, CO2 20, BUN 16, creatinine 1.02, and an improvement in her magnesium which is up to 1.6. Covid 19 result remains pending and she remains on droplet precautions per protocol. 0.9% normal saline is infusing at 20 mL per hour. Objective - Vital Signs Vital signs: Vital Signs Temp 98.1 F 01/15/20 11:34 Pulse 67 01/15/20 11:34 Resp 16 01/15/20 11:34 BP 151/70 01/15/20 11:34 Pulse Ox 99 01/15/20 11:34 Intake & Output 01/14/20 01/15/20 01/15/20 18:59 06:59 18:59 Intake Total 1040 910 437 Output Total 1 Balance 1039 910 437 Weight 117.934 kg 119 kg Intake: IV 10 Invasive Line 1 10 Intake, IV Titration 1040 260 100 Amount Magnesium Sulfate-D5w Pmx 300 1 gm In Dextrose/Water 1 100ml.bag @ 100 mls/hr IVPB Q1H [facility] Rx#: [id number] Piperacillin-Tazobactam 3 100 100 100 .375 gm In Sodium Chloride 0.9% 100 ml @ 25 mls/hr IVPB Q8HR [facility] Rx# :[id number] Sodium Chloride 0.9% 1, 140 160 000 ml @ 20 mls/hr IV . Q24H [facility]ODY Rx#:[id number] Vancomycin 1,750 mg In 500 Sodium Chloride 0.9% 500 ml 500 ml @ 167 mls/hr IVPB Q16H [facility]ODY Rx#: [id number] Oral 640 337 Output: Stool 1 Other: Voiding Method Diaper Diaper Diaper # Voids 1 0 1 - Constitutional Constitutional Comment(s): This is 64-year-old female patient who was awake and alert, oriented 3. Oxygen saturations are 93% on room air. She is in no acute distress. General appearance: Present: cooperative, morbidly obese, no acute distress - EENT Eyes: Present: PERRLA, normal appearance. Absent: scleral icterus - Neck Details: Neck is supple. Neck: Absent: lymphadenopathy, stridor - Respiratory Details: Lung sounds are essentially clear throughout, few scattered crackles to her bilateral bases. Respirations are symmetrical and nonlabored. - Cardiovascular Details: Regular rhythm and rate. S1 and S2 present, negative for S3, gallop or murmur. Remote telemetry showing normal sinus rhythm heart rate 66. - Gastrointestinal Gastrointestinal Comment(s): Abdomen is soft, nontender and nondistended. Active bowel sounds present in all 4 abdominal quadrants. General gastrointestinal: Absent: organomegaly, rigid - Integumentary Integumentary Comment(s): Skin is warm and dry. No clubbing or cyanosis was present. - Neurologic Neurologic: Present: CNII-XII intact - Musculoskeletal Musculoskeletal: Present: generalized weakness, strength equal bilaterally - Psychiatric Psychiatric: Present: A&O x's 3, appropriate affect, intact judgment & insight - Allied health notes Allied health notes reviewed: nursing - Labs CBC & Chem 7: 01/15/20 05:29 01/15/20 05:29 Labs: Abnormal Lab Results - Last 24 Hours (Table) 01/14/20 01/14/20 01/14/20 Range/Units 05:15 12:30 16:41 RBC (3.80-5.40) m/uL Hgb (11.4-16.0) gm/dL Hct (34.0-46.0) % MCHC (31.0-37.0) g/dL RDW (11.5-15.5) % Sodium 133 L (137-145) mmol/L Potassium 3.2 L (3.5-5.1) mmol/L Carbon Dioxide 21 L (22-30) mmol/L Glucose 138 H (74-99) mg/dL POC Glucose (mg/dL) 146 H (75-99) mg/dL Calcium 8.1 L (8.4-10.2) mg/dL Magnesium 0.8 L* (1.6-2.3) mg/dL Lactate Dehydrogenase 777 H (313-618) U/L C-Reactive Protein 135.0 H (<10.0) mg/L Total Protein 5.3 L (6.3-8.2) g/dL Albumin 2.5 L (3.5-5.0) g/dL 01/14/20 01/15/20 01/15/20 Range/Units 20:45 05:29 05:29 RBC 3.56 L (3.80-5.40) m/uL Hgb 9.2 L (11.4-16.0) gm/dL Hct 30.0 L (34.0-46.0) % MCHC 30.8 L (31.0-37.0) g/dL RDW 16.8 H (11.5-15.5) % Sodium 135 L (137-145) mmol/L Potassium (3.5-5.1) mmol/L Carbon Dioxide 20 L (22-30) mmol/L Glucose 105 H (74-99) mg/dL POC Glucose (mg/dL) 137 H (75-99) mg/dL Calcium 8.2 L (8.4-10.2) mg/dL Magnesium (1.6-2.3) mg/dL Lactate Dehydrogenase (313-618) U/L C-Reactive Protein (<10.0) mg/L Total Protein (6.3-8.2) g/dL Albumin (3.5-5.0) g/dL 01/15/20 01/15/20 Range/Units 06:08 11:41 RBC (3.80-5.40) m/uL Hgb (11.4-16.0) gm/dL Hct (34.0-46.0) % MCHC (31.0-37.0) g/dL RDW (11.5-15.5) % Sodium (137-145) mmol/L Potassium (3.5-5.1) mmol/L Carbon Dioxide (22-30) mmol/L Glucose (74-99) mg/dL POC Glucose (mg/dL) 119 H 108 H (75-99) mg/dL Calcium (8.4-10.2) mg/dL Magnesium (1.6-2.3) mg/dL Lactate Dehydrogenase (313-618) U/L C-Reactive Protein (<10.0) mg/L Total Protein (6.3-8.2) g/dL Albumin (3.5-5.0) g/dL Microbiology - Last 24 Hours (Table) 01/14/20 05:15 Blood Culture Gram Stain - Preliminary Blood Blood Culture - Preliminary Klebsiella pneumoniae 01/14/20 05:15 Blood Culture - Final Blood - Imaging and Cardiology Chest x-ray: report reviewed, image reviewed Assessment and Plan Assessment: 1. Acute pulmonary interstitial edema and infiltrate. Possibly Covid 19 infection is being considered, patient has been tested and the results remain pending. 2. Klebsiella bacteremia . 3. Fever, secondary to possible Covid 19 4. History of previous CVA 3 5. History of paroxysmal atrial fibrillation on eliquis for home anticoagulation 6. Diabetes mellitus 7. Hypertension 8. Hyperlipidemia 9. 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 Hypomagnesemia, magnesium was supplemented 11. Hypokalemia, potassium was supplemented Plan: 1. The patient was seen and examined at her bedside with Dr. Sanchez. 2. Discontinue vancomycin although continue Zosyn due to her positive blood cultures of Klebsiella pneumoniae. 3. Awaiting Covid 19 results. Continue droplet precautions. 4. Send urine for urinalysis with reflex culture, patient has a history of MRSA and E. coli ESBL to her urine. Looking for source of Klebsiella pneumoniae in her blood. 5. Replace magnesium per protocol. Repeat magnesium level, BMP. 6. Atrial fibrillation management per cardiology recommendations. Currently in normal sinus rhythm. 7. More recommendations to follow based on patient's clinical course. The patient was seen and examined with Dr. Arellano, the plan and assessment were discussed. Time with Patient: Less than 30
--- NOTE | 2020-01-15 14:06 | CONS ---
CONSULTATION DATE OF SERVICE: 01/15/2020 REASON FOR CONSULTATION: Bacteremia. HISTORY OF PRESENT ILLNESS: The patient is a 64-year-old female who has been brought in by EMS yesterday for evaluation of her fever. Apparently the patient family called for the patient having a fever; however, the patient did not recall she was having any fever or any chills. The patient denies having any headache, no chest pain, shortness of breath or cough. No abdominal pain or any diarrhea. The patient subsequently has been evaluated by the ER physician. On arrival to the ER, the patient did have a fever of 102 degrees Fahrenheit. Patient did not have tachycardia and was saturating well. Patient did have a normal white count. She did have a CRP of 135. Influenza PCR was negative as well as coronavirus. Patient did have a chest x-ray shows pulmonary interstitial edema, infiltrates slightly worse on the right side since the last exam. Patient was started on Zosyn for presumed aspiration pneumonia. She did have blood cultures done which came back positive with gram-negative bacilli that prompted this Infectious Disease consultation. As of my evaluation this afternoon the patient denies having any fever or chills. She denies having any chest pain or cough. No nausea, no vomiting. No abdominal pain. No urinary symptoms. She did have a sacral wound that has been evaluated by the wound care nurse. Did not mention any inflammatory changes to the sacral wound and the patient has no symptoms referable to the same. REVIEW OF SYSTEMS: Positive points have been mentioned in HPI. Rest of systems are negative. PAST MEDICAL HISTORY: Atrial fibrillation, CVA, TIA, diabetes mellitus, hypertension, previous history of MRSA infection. PAST SURGICAL HISTORY: Carotid endarterectomy, tubal ligation. SOCIAL HISTORY: Remote history of smoking. No drinking or drug use. FAMILY HISTORY: Sister history of diabetes. Mother with history of brain aneurysm. ALLERGIES: No known drug allergies. MEDICATIONS: The patient is currently on Zosyn 3.75 g q.8 hours. She is on Protonix, triad cream, Lopressor, Cozaar, Keppra, NovoLog, Callejas, Lipitor, Eliquis, Tylenol. PHYSICAL EXAMINATION: Blood pressure is 151/70 with a pulse of 67, temperature 98.1, she is 98% on 3 L nasal cannula. General description is an elderly female, lying in bed in no distress. No tachypnea or accessory muscle of respiration use. HEENT: Examination is slight pallor. No scleral icterus. Oral mucosa membrane is dry, no pharyngeal erythema or thrush. NECK: Trachea central, no thyromegaly. LUNGS: Unlabored breathing, clear to auscultation anteriorly. No wheeze or crackle. HEART: S1, S2. Regular rate and rhythm. ABDOMEN: Soft, no tenderness. No guarding or rigidity. EXTREMITIES: No edema of the feet. Sacral wound currently examined and asked the staff to help turn the patient around. NEUROLOGICAL: Patient is awake, alert, oriented x3. Mood and affect normal. LABS: Hemoglobin is 9.2, white count of 8.1. BUN of 16, creatinine 1.02. Electrolytes have been normal. Blood has been finalized with Klebsiella pneumonia. Chest x-ray initially showing right-sided infiltrate. Chest x-ray this morning shows some improvement of right-sided infiltrate. DIAGNOSTIC IMPRESSION AND PLAN: Patient with Klebsiella pneumoniae bacteremia, source could be more likely right-sided pneumonia. The patient seemed to be clinically responding to Zosyn that will be continued while waiting for the culture to finalize. PLAN: 1. Will try to obtain sputum for culture. 2. Repeat blood cultures to document clearance of bacteremia. 3. Zosyn 3.375 g q.8 hours to continue. Adjust antibiotic further based on the culture report. Thank you for this consultation. Will follow this patient along with you. MMODL / IJN: [id number] /
--- NOTE | 2020-01-15 16:04 | CDI ---
Documentation Clarification Form Date: 01/15/20 03:38 PM From: Kylie Daniels RN CCDS Admit Date: 01/14/2020 07:00:00 AM Patient Name: Joanna Segovia Visit Number: [id number] Discharge Date: ATTENTION: The Clinical Documentation Specialists (CDI) and [facility] Coding Staff appreciate your assistance in clarifying documentation. Please respond to the clarification below the line at the bottom and electronically sign. The CDI & [facility] Coding staff will review the response and follow-up if needed. Please note: Queries are made part of the Legal Health Record. If you have any questions, please contact the author of this message via ITS. Dr. Asuncion Alicea Abnormal troponin, likely secondary to sepsis is documented Cardiology Consult 01/13 and Progress note 01/14 History/Risk Factors: 64-year-old female presents to the ED via EMS for evaluation of cough, shortness of breath and fever. Medical History Atrial Fib, CVA, DM, HTN and bed bound. Clinical Indicators: Lab findings: 01/13 Lymphocytes 0.2, Inr 1.4, Na 133, K 3.2, Carbon dioxide 21, Calcium 8.1, BNP 4480, Troponin 0.236 01/14 Troponin 0.369 ECHO 01/13 Mild concentric left ventricular hypertrophy. Overall left ventricular function is normal with, an EF between 55-60%. The left atrium is mildly dilated. Mild aortic valve sclerosis. Mild aortic regurgitation. Moderate mitral annular calcification present. Mild mitral regurgitation is present. Mild tricuspid regurgitation. EKG 01/13 sinus rhythm with premature trial complexes. Vital Signs: 136/50 88 102.4 20 96% Non-ReBreather Treatment: 01/13 Levaquin Ivpb x1, Rocephin Ivpb x1, Vancomycin Ivpb Q16 hrs d/c 01/14, Zosyn Ivpb Q 8Hr In your professional opinion, can you please clarify the abnormal troponin? Type 2 [place] secondary to demand ischemia in the setting of Sepsis Type 2 NY secondary to demand ischemia due to (please specify) Type 2 NY Ruled OUt Other, please specify Unable to determine (Last Revision: January 2018) Type 2 [place] secondary to demand ischemia in the setting of Sepsis MTDD
[2020-01-15 16:48] LABS: Glucose,Whole Blood 106 mg/dL (75-99)
[2020-01-15 19:33] LABS: Appearance,Urine Cloudy (Clear); Bacteria,Urine Rare /hpf; Bilirubin,Urine Negative (Negative); Blood,Urine Trace (Negative); Color,Urine Yellow; Glucose,Urine (UA) Negative (Negative); Ketones,Urine Negative (Negative); Leukocyte Esterase,Urine Large (Negative); Mucus,Urine Rare /hpf; Nitrite,Urine Positive (Negative); PH, Urine 5.5 (5.0-8.0); Protein,Urine Trace (Negative); RBC,Urine 2 /hpf (0-5); Specific Gravity,Urine 1.017 (1.001-1.035); Urobilinogen,Urine <2.0 mg/dL (<2.0); WBC,Urine 64 /hpf (0-5)
[2020-01-15] MEDS: ATORVASTATIN 80 MG TAB PO SCH (20:23)
[2020-01-15] MEDS: CITALOPRAM HYDROBROMIDE 20 MG TAB PO SCH (20:23)
[2020-01-15 20:53] LABS: Glucose,Whole Blood 125 mg/dL (75-99)
[2020-01-15 20:55] LABS: Hemoglobin A1C 5.2 % (4.0-6.0)
[2020-01-16 06:11] LABS: Glucose,Whole Blood 91 mg/dL (75-99)
[2020-01-16] MEDS: INSULIN ASPART (NovoLOG) 100 UNIT/ML VIAL SQ SCH ×4 (06:11→20:55)
[2020-01-16] MEDS: SODIUM CHLORIDE 0.9% 1,000 ML IV SCH (06:32)
[2020-01-16] MEDS: PANTOPRAZOLE 40 MG TABLET PO SCH (06:32)
[2020-01-16 07:41] LABS: Calcium 8.5 mg/dL (8.4-10.2); Magnesium 1.8 mg/dL (1.6-2.3); Potassium 3.6 mmol/L (3.5-5.1)
[2020-01-16 10:23] LABS: Anisocytosis Slight; Basophils % (A) 0 %; Eosinophils # (A) 0.1 k/uL (0-0.7); Eosinophils % (A) 1 %; HCT 31.5 % (34.0-46.0); HGB 9.7 gm/dL (11.4-16.0); Hypochromasia Slight; Lymphocytes # (A) 1.1 k/uL (1.0-4.8); Lymphocytes % (A) 17 %; MCH 26.2 pg (25.0-35.0); MCHC 30.7 g/dL (31.0-37.0); MCV 85.4 fL (80.0-100.0); Mean Platelet Volume 8.6; Monocytes # (A) 0.5 k/uL (0-1.0); Monocytes % (A) 8 %; Neutrophils # (A) 4.9 k/uL (1.3-7.7); Neutrophils % (A) 72 %; Platelet Count 203 k/uL (150-450); RBC 3.68 m/uL (3.80-5.40); RDW 16.5 % (11.5-15.5); WBC 6.8 k/uL (3.8-10.6)
[2020-01-16] MEDS: amLODIPine 10 MG TAB PO SCH (10:28)
[2020-01-16] MEDS: APIXABAN 5 MG TAB PO SCH ×2 (10:28→20:54)
[2020-01-16] MEDS: LOSARTAN 50 MG TAB PO SCH (10:28)
[2020-01-16] MEDS: levETIRAcetam 500 MG TAB PO SCH ×2 (10:28→20:54)
[2020-01-16] MEDS: HYDROCORTISONE 2.5% RECTAL CREAM 30 GM TUBE RECTAL SCH ×2 (10:29→22:05)
[2020-01-16] MEDS: METOPROLOL TARTRATE 25 MG TAB PO SCH ×2 (10:30→20:54)
[2020-01-16] MEDS ORDERED: POTASSIUM CHLORIDE ER 20 MEQ TAB.ER PO STA (10:58)
--- NOTE | 2020-01-16 11:13 | P.PN ---
Subjective 64-year-old female was brought in because of cough and shortness of breath and fever patient is only comparing of fever but the patient was apparently having cough as per the family members. Patient does have lymphopenia I do not have any LH available which was ordered. Patient chest x-rays consistent with atypical pneumonia. Appropriate particularly on the right side. Patient does have history of atrial fibrillation on metoprolol and on Eliquis. Patient will 6 L of falls and presently on 4 L of oxygen saturating at 95% patient doesn't u se any oxygen at home, patient also is a former smoker. 01/15/2020 Patient denied any complaints today patient is feeling much better patient on Zosyn, onset requirements requirements have come down but still requiring oxygen. 01/16/2020 Patient is negative for Covid19. Patient is bacteremic with Klebsiella which is pansensitive patient antibiotics will be switched to Rocephin maximizing will be discontinued. Patient although feels better physical therapy and outpatient therapy will evaluate the patient. Repeat blood cultures were obtained so far negative the remain negative by tomorrow patient probably can be discharged on total of 14 day duration of antibiotics at the time of discharge will evaluated for home oxygen the primary source of infection is probably right lower lobe pneumonia Constitutional: Denied any fatigue denied any fever. Cardio vascular: denied any chest pain, palpitations Gastrointestinal denied any nausea vomiting Pulmonary: Denied any shortness of breath cough Neurologic denied any new focal deficits All inpatient medications were reviewed and appropriate changes in these medications as dictated in the interval history and assessment and plan. Objective - Vital Signs Vital signs: Vital Signs Temp 98.2 F 01/16/20 07:50 Pulse 64 01/16/20 07:50 Resp 18 01/16/20 07:50 BP 218/93 01/16/20 07:50 Pulse Ox 96 01/16/20 07:50 Intake & Output 01/15/20 01/16/20 01/16/20 18:59 06:59 18:59 Intake Total 974 100 Balance 974 100 Weight 119 kg 120 kg Intake: Intake, IV Titration 300 100 Amount Magnesium Sulfate-D5w Pmx 100 1 gm In Dextrose/Water 1 100ml.bag @ 100 mls/hr IVPB Q1H [facility] Rx#: [id number] Piperacillin-Tazobactam 3 200 100 .375 gm In Sodium Chloride 0.9% 100 ml @ 25 mls/hr IVPB Q8HR [facility] Rx# :[id number] Oral 674 Other: Voiding Method Incontinent Incontinent Incontinent # Voids 1 1 - Exam PHYSICAL EXAMINATION: GENERAL: The patient is alert and oriented x3, not in any acute distress. Well developed, well nourished. HEENT: Pupils are round and equally reacting to light. EOMI. No scleral icterus. No conjunctival pallor. Normocephalic, atraumatic. No pharyngeal erythema. No thyromegaly. CARDIOVASCULAR: S1 and S2 present. No murmurs, rubs, or gallops. PULMONARY: Decreased air entry with some basilar crackles on exam ABDOMEN: Soft, nontender, nondistended, normoactive bowel sounds. No palpable organomegaly. MUSCULOSKELETAL: No joint swelling or deformity. EXTREMITIES: No cyanosis, clubbing, or pedal edema. NEUROLOGICAL: Gross neurological examination did not reveal any focal deficits. SKIN: No rashes. Note: Because of [facility], some of the history and physical exam findings or indirect and obtained from nursing staff, and other physician examinations to avoid unnecessary contact with the patient. - Labs CBC & Chem 7: 01/16/20 06:51 01/16/20 06:51 Labs: Abnormal Lab Results - Last 24 Hours (Table) 01/15/20 01/15/20 01/15/20 Range/Units 11:41 12:19 15:30 RBC (3.80-5.40) m/uL Hgb (11.4-16.0) gm/dL Hct (34.0-46.0) % MCHC (31.0-37.0) g/dL RDW (11.5-15.5) % Sodium (137-145) mmol/L POC Glucose (mg/dL) 108 H (75-99) mg/dL Troponin I 0.369 H* (0.000-0.034) ng/mL Urine Appearance Cloudy H (Clear) Urine Protein Trace H (Negative) Urine Blood Trace H (Negative) Urine Nitrite Positive H (Negative) Ur Leukocyte Esterase Large H (Negative) Urine WBC 64 H (0-5) /hpf Urine WBC Clumps Few H (None) /hpf Urine Bacteria Rare H (None) /hpf Urine Mucus Rare H (None) /hpf 01/15/20 01/15/20 01/16/20 Range/Units 16:45 20:51 06:51 RBC (3.80-5.40) m/uL Hgb (11.4-16.0) gm/dL Hct (34.0-46.0) % MCHC (31.0-37.0) g/dL RDW (11.5-15.5) % Sodium 135 L (137-145) mmol/L POC Glucose (mg/dL) 106 H 125 H (75-99) mg/dL Troponin I (0.000-0.034) ng/mL Urine Appearance (Clear) Urine Protein (Negative) Urine Blood (Negative) Urine Nitrite (Negative) Ur Leukocyte Esterase (Negative) Urine WBC (0-5) /hpf Urine WBC Clumps (None) /hpf Urine Bacteria (None) /hpf Urine Mucus (None) /hpf 01/16/20 Range/Units 06:51 RBC 3.68 L (3.80-5.40) m/uL Hgb 9.7 L (11.4-16.0) gm/dL Hct 31.5 L (34.0-46.0) % MCHC 30.7 L (31.0-37.0) g/dL RDW 16.5 H (11.5-15.5) % Sodium (137-145) mmol/L POC Glucose (mg/dL) (75-99) mg/dL Troponin I (0.000-0.034) ng/mL Urine Appearance (Clear) Urine Protein (Negative) Urine Blood (Negative) Urine Nitrite (Negative) Ur Leukocyte Esterase (Negative) Urine WBC (0-5) /hpf Urine WBC Clumps (None) /hpf Urine Bacteria (None) /hpf Urine Mucus (None) /hpf Microbiology - Last 24 Hours (Table) 01/15/20 05:29 Blood Culture - Preliminary Blood No Growth after 24 hours 01/14/20 05:15 Blood Culture Gram Stain - Final Blood Blood Culture - Final Klebsiella pneumoniae 01/15/20 15:30 Urine Culture - Preliminary Urine,Voided Assessment and Plan Plan: 7 acute hypoxic respiratory failure: Secondary to right lower lobe pneumonia, Covid 19 is negative, rule out Covid 19 patient is bacteremic with Klebsiella pansensitive patient is presently on Rocephin other antibiotics were discontinued. -Sepsis secondary gram-negative Klebsiella pneumonia hyponatremic improved probably hypovolemic hyponatremia improved now Hypokalemia potassium was supplemented -Atrial fibrillation paroxysmal patient is presently rate controlled patient was started on metoprolol or change to twice a day and clonidine is being held patie nt heart rate is well controlled and the patient is on losartan dose of which will be resumed to home dose -Hypertension patient will be started on half a dose of losartan and amlodipine will be resumed hold off on hydralazine and clonidine -Type 2 diabetes mellitus DVT prophylaxis patient was started back on Eliquis and Lovenox will be discontinued
[2020-01-16] MEDS: PIPERACILLIN-TAZOBACTAM 3.375 GM in SODIUM CHLORIDE 0.9% 100 ML IVPB SCH (11:36)
[2020-01-16] MEDS: HYDROPHILIC CREAM 180 GM TUBE TOPICAL SCH (11:47)
[2020-01-16 12:08] LABS: Glucose,Whole Blood 104 mg/dL (75-99)
--- NOTE | 2020-01-16 12:39 | P.PN ---
Subjective Progress Note Date: 01/16/20 Principal diagnosis: Pneumonia This is a 64-year-old female patient who is followed by Dr. Rhys Holley on an outpatient basis. She has a past medical history significant for a nonhealing stage III pressure ulcer to her coccyx, hypertension, [id number] diabetes mellitus, hypertension, hyperlipidemia, morbid obesity sepsis secondary to the ESBL producing urinary tract infection/E. coli septicemia, atrial fibrillation on eliquis for home anticoagulation and history of CVA with residual left-sided weakness. She presented to the emergency department here at [facility] via EMS with complaints of fever. Denies any complaints of cough, shortness of breath, body aches, pain, nausea or vomiting. Laboratory results on admission show a WBC count 5.5, Hgb 9.7, lymphocytes 0.2, PT 14.2, INR 1.4, PTT 30.5, potassium 3.2, CO2 21, BUN 11, cre atinine 0.81, lactic acid 1.8, and troponin elevated at 0.236. Influenza swabs were negative for type A aortic type B and her COVID-19 test remains pending. A chest x-ray was completed which demonstrated pulmonary interstitial edema and infiltrate slightly worse on the right side compared to her last exam. 12-lead EKG showed normal sinus rhythm with premature atrial complexes with a heart rate of 82 BPM. Temperature on admission was 102.4F. Currently she is on 4 L nasal cannula with oxygen saturations 95%. The patient does report that she is feeling better today. Currently her lower temperature is 98.8F. 01/15/2020, the patient was seen at her bedside on the cardiac stepdown unit w tricia Arellano. The patient reports she is feeling much better today. Oxygen saturations are 93% on room air. She has been afebrile in the last 24 hours. Her chest x-ray today is slightly improved in comparison to her chest x-ray from yesterday. The chest x-ray report shows improving infiltrate identified throughout the right lung and left perihilar regions, near complete resolution suggested. Her blood culture preliminary results show Klebsiella pneumoniae. Laboratory results this morning show a WBC count 8.1, Hgb 9.2, sodium 135, potassium 3.7, CO2 20, BUN 16, creatinine 1.02, and an improvement in her magnesium which is up to 1.6. Covid 19 result remains pending and she remains on droplet precautions per protocol. 0.9% normal saline is infusing at 20 mL per hour. 01/16/2020, the patient was seen and examined at her bedside on the cardiac stepdown unit with Dr. Arellano. She continues to feel better on a daily basis. Blood cultures were positive for Klebsiella pneumoniae and she remains on Rocephin for antibiotics. She has been afebrile the last 24 hours and currently her oxygen saturations are 96% on 3 L nasal cannula. Laboratory results today show a WBC count of 6.8, Hgb 9.7, sodium 135, potassium 3.6, BUN 15, creatinine 0.88. A urine culture was sent yesterday with results pending. Covid 19 result was negative. Objective - Vital Signs Vital signs: Vital Signs Temp 98.2 F 01/16/20 07:50 Pulse 64 01/16/20 07:50 Resp 18 01/16/20 07:50 BP 218/93 01/16/20 07:50 Pulse Ox 96 01/16/20 07:50 Intake & Output 01/15/20 01/16/20 01/16/20 18:59 06:59 18:59 Intake Total 974 100 Balance 974 100 Weight 119 kg 120 kg Intake: Intake, IV Titration 300 100 Amount Magnesium Sulfate-D5w Pmx 100 1 gm In Dextrose/Water 1 100ml.bag @ 100 mls/hr IVPB Q1H [facility] Rx#: [id number] Piperacillin-Tazobactam 3 200 100 .375 gm In Sodium Chloride 0.9% 100 ml @ 25 mls/hr IVPB Q8HR [facility] Rx# :[id number] Oral 674 Other: Voiding Method Incontinent Incontinent Incontinent # Voids 1 1 - Constitutional Constitutional Comment(s): This is 64-year-old female patient who was awake and alert, oriented 3. Oxygen saturations are 96% on 3 L nasal cannula. She is in no acute distress. - EENT Eyes: Present: PERRLA, normal appearance. Absent: scleral icterus - Neck Neck: Absent: lymphadenopathy, stridor, thyromegaly - Respiratory Details: Lung sounds are essentially clear throughout, few scattered crackles to her bilateral bases. Respirations are symmetrical and nonlabored. - Cardiovascular Details: Regular rhythm and rate. S1 and S2 present, negative for S3, gallop or murmur. Remote telemetry showing normal sinus rhythm heart rate 65. - Gastrointestinal Gastrointestinal Comment(s): Abdomen is soft, nontender and nondistended. Active bowel sounds present in all 4 abdominal quadrants. No guarding or rigidity. No organomegaly appreciated. - Integumentary Integumentary Comment(s): Skin is warm and dry. No clubbing or cyanosis was present. - Neurologic Neurologic: Present: CNII-XII intact - Musculoskeletal Musculoskeletal: Present: strength equal bilaterally - Psychiatric Psychiatric: Present: A&O x's 3, appropriate affect, intact judgment & insight - Allied health notes Allied health notes reviewed: nursing - Labs CBC & Chem 7: 01/16/20 06:51 01/16/20 06:51 Labs: Abnormal Lab Results - Last 24 Hours (Table) 01/15/20 01/15/20 01/15/20 Range/Units 12:19 15:30 16:45 RBC (3.80-5.40) m/uL Hgb (11.4-16.0) gm/dL Hct (34.0-46.0) % MCHC (31.0-37.0) g/dL RDW (11.5-15.5) % Sodium (137-145) mmol/L POC Glucose (mg/dL) 106 H (75-99) mg/dL Troponin I 0.369 H* (0.000-0.034) ng/mL Urine Appearance Cloudy H (Clear) Urine Protein Trace H (Negative) Urine Blood Trace H (Negative) Urine Nitrite Positive H (Negative) Ur Leukocyte Esterase Large H (Negative) Urine WBC 64 H (0-5) /hpf Urine WBC Clumps Few H (None) /hpf Urine Bacteria Rare H (None) /hpf Urine Mucus Rare H (None) /hpf 01/15/20 01/16/20 01/16/20 Range/Units 20:51 06:51 06:51 RBC 3.68 L (3.80-5.40) m/uL Hgb 9.7 L (11.4-16.0) gm/dL Hct 31.5 L (34.0-46.0) % MCHC 30.7 L (31.0-37.0) g/dL RDW 16.5 H (11.5-15.5) % Sodium 135 L (137-145) mmol/L POC Glucose (mg/dL) 125 H (75-99) mg/dL Troponin I (0.000-0.034) ng/mL Urine Appearance (Clear) Urine Protein (Negative) Urine Blood (Negative) Urine Nitrite (Negative) Ur Leukocyte Esterase (Negative) Urine WBC (0-5) /hpf Urine WBC Clumps (None) /hpf Urine Bacteria (None) /hpf Urine Mucus (None) /hpf 01/16/20 Range/Units 11:56 RBC (3.80-5.40) m/uL Hgb (11.4-16.0) gm/dL Hct (34.0-46.0) % MCHC (31.0-37.0) g/dL RDW (11.5-15.5) % Sodium (137-145) mmol/L POC Glucose (mg/dL) 104 H (75-99) mg/dL Troponin I (0.000-0.034) ng/mL Urine Appearance (Clear) Urine Protein (Negative) Urine Blood (Negative) Urine Nitrite (Negative) Ur Leukocyte Esterase (Negative) Urine WBC (0-5) /hpf Urine WBC Clumps (None) /hpf Urine Bacteria (None) /hpf Urine Mucus (None) /hpf Microbiology - Last 24 Hours (Table) 01/15/20 05:29 Blood Culture - Preliminary Blood No Growth after 24 hours 01/14/20 05:15 Blood Culture Gram Stain - Final Blood Blood Culture - Final Klebsiella pneumoniae 01/15/20 15:30 Urine Culture - Preliminary Urine,Voided Assessment and Plan Assessment: 1. Acute pulmonary interstitial edema and infiltrate. Covid 19 infection negative. 2. Klebsiella bacteremia . 3. Fever, secondary to possible Covid 19 4. History of previous CVA 3 5. History of paroxysmal atrial fibrillation on eliquis for home anticoagulation 6. Diabetes mellitus 7. Hypertension 8. Hyperlipidemia 9. 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 Hypomagnesemia, resolved 11. Hypokalemia, resolved Plan: 1. The patient was seen and examined at her bedside with Dr. Sanchez. 2. Continue Rocephin, antibiotic management per infectious disease recommendations. 3. Awaiting Covid 19 results. Continue droplet precautions. 4. Send urine for urinalysis with reflex culture. Urine culture results remain pending. 5. Atrial fibrillation management per cardiology recommendations. Currently in normal sinus rhythm. 6. May be discharged home per the pulmonary medicine standpoint when okay with primary care service. The patient was seen and examined with Dr. Arellano, the plan and assessment were discussed. Time with Patient: Less than 30
[2020-01-16 17:03] LABS: Glucose,Whole Blood 115 mg/dL (75-99)
[2020-01-16 20:53] LABS: Glucose,Whole Blood 124 mg/dL (75-99)
[2020-01-16] MEDS: CITALOPRAM HYDROBROMIDE 20 MG TAB PO SCH (20:54)
[2020-01-16] MEDS: ATORVASTATIN 80 MG TAB PO SCH (20:54)
--- NOTE | 2020-01-16 22:50 | PN ---
PROGRESS NOTE DATE OF SERVICE: 01/16/2020 REASON FOR FOLLOWUP: Klebsiella bacteremia. Source is likely pneumonia. INTERVAL HISTORY: The patient is currently afebrile. She is breathing comfortably. Denies having any chest pain. Occasional cough. No nausea, no vomiting, no abdominal pain, no diarrhea. PHYSICAL EXAMINATION: Her blood pressure is 191/90, pulse of 74, temperature 98.1. She is 92% on 3 L nasal cannula. General description is an elderly female lying in bed in no distress. RESPIRATORY SYSTEM: Unlabored breathing with decreased breath sounds at the base. No wheeze. HEART: S1, S2. Regular rate and rhythm. ABDOMEN: Soft. No tenderness. LABS: Hemoglobin 9.7, white count 6.8. BUN of 15, creatinine 0.88. DIAGNOSTIC IMPRESSION AND PLAN: Patient with Klebsiella pneumoniae bacteremia. Source is likely pneumonia, right-sided. Patient's antibiotic was switched over to Rocephin; to continue. Follow-up blood culture has been negative. Hopefully finish therapy with oral antibiotics. Continue with supportive care. MMODL / IJN: [id number] /
[2020-01-17 06:08] LABS: Glucose,Whole Blood 105 mg/dL (75-99)
[2020-01-17] MEDS: INSULIN ASPART (NovoLOG) 100 UNIT/ML VIAL SQ SCH ×4 (06:39→23:06)
[2020-01-17] MEDS: SODIUM CHLORIDE 0.9% 1,000 ML IV SCH (06:40)
[2020-01-17] MEDS: PANTOPRAZOLE 40 MG TABLET PO SCH (06:40)
[2020-01-17] MEDS: LOSARTAN 50 MG TAB PO SCH (08:04)
[2020-01-17] MEDS: CARVEDILOL 6.25 MG TAB PO SCH ×2 (08:05→18:02)
[2020-01-17] MEDS: APIXABAN 5 MG TAB PO SCH ×2 (08:05→20:42)
[2020-01-17] MEDS: amLODIPine 10 MG TAB PO SCH (08:05)
[2020-01-17] MEDS: levETIRAcetam 500 MG TAB PO SCH ×2 (08:05→20:42)
[2020-01-17] MEDS: HYDROPHILIC CREAM 180 GM TUBE TOPICAL SCH (08:06)
[2020-01-17] MEDS: HYDROCORTISONE 2.5% RECTAL CREAM 30 GM TUBE RECTAL SCH ×2 (08:06→20:47)
[2020-01-17 08:09] LABS: Anisocytosis Slight; HCT 32.2 % (34.0-46.0); HGB 10.2 gm/dL (11.4-16.0); Hypochromasia Moderate; MCH 26.5 pg (25.0-35.0); MCHC 31.6 g/dL (31.0-37.0); MCV 83.8 fL (80.0-100.0); Mean Platelet Volume 8.1; Platelet Count 264 k/uL (150-450); RBC 3.84 m/uL (3.80-5.40); WBC 6.6 k/uL (3.8-10.6)
[2020-01-17] MEDS ORDERED: METOPROLOL TARTRATE 50 MG TAB PO SCH (09:00)
[2020-01-17 11:51] LABS: Glucose,Whole Blood 114 mg/dL (75-99)
--- NOTE | 2020-01-17 12:55 | P.PN ---
Subjective 64-year-old female was brought in because of cough and shortness of breath and fever patient is only comparing of fever but the patient was apparently having cough as per the family members. Patient does have lymphopenia I do not have any LH available which was ordered. Patient chest x-rays consistent with atypical pneumonia. Appropriate particularly on the right side. Patient does have history of atrial fibrillation on metoprolol and on Eliquis. Patient will 6 L of falls and presently on 4 L of oxygen saturating at 95% patient doesn't u se any oxygen at home, patient also is a former smoker. 01/15/2020 Patient denied any complaints today patient is feeling much better patient on Zosyn, onset requirements requirements have come down but still requiring oxygen. 01/16/2020 Patient is negative for Covid19. Patient is bacteremic with Klebsiella which is pansensitive patient antibiotics will be switched to Rocephin maximizing will be discontinued. Patient although feels better physical therapy and outpatient therapy will evaluate the patient. Repeat blood cultures were obtained so far negative the remain negative by tomorrow patient probably can be discharged on total of 14 day duration of antibiotics at the time of discharge will evaluated for home oxygen the primary source of infection is probably right lower lobe pneumonia\ 01/17/2020 Patient the repeat blood cultures are negative. Although patient blood pressures are very high patient was started on hydralazine will monitor her today possibility of discharge tomorrow patient is still requiring oxygen probably will need temporary until the her respiratory status improves until her pneumonia improves. Patient declined rehabilitation in the past Constitutional: Denied any fatigue denied any fever. Cardio vascular: denied any chest pain, palpitations Gastrointestinal denied any nausea vomiting Pulmonary: Denied any shortness of breath cough Neurologic denied any new focal deficits All inpatient medications were reviewed and appropriate changes in these medications as dictated in the interval history and assessment and plan. Objective - Vital Signs Vital signs: Vital Signs Temp 97.8 F 01/17/20 11:30 Pulse 69 01/17/20 11:30 Resp 18 01/17/20 11:30 BP 192/94 01/17/20 11:30 Pulse Ox 96 01/17/20 11:30 Intake & Output 01/16/20 01/17/20 01/17/20 18:59 06:59 18:59 Intake Total 1420 Output Total 0 1353 800 Balance 1420 -1353 -800 Weight 117 kg Intake: Intake, IV Titration 100 Amount cefTRIAXone 2 gm In 100 Sodium Chloride 0.9% 50 ml @ 100 mls/hr IVPB Q24HR COUNTS INCLUDE 234 BEDS AT THE [facility] Rx#:[id number] Oral 1320 Output: Urine 0 1350 800 Stool 3 Other: Voiding Method Incontinent Incontinent Incontinent - Exam PHYSICAL EXAMINATION: GENERAL: The patient is alert and oriented x3, not in any acute distress. Well developed, well nourished. HEENT: Pupils are round and equally reacting to light. EOMI. No scleral icterus. No conjunctival pallor. Normocephalic, atraumatic. No pharyngeal erythema. No thyromegaly. CARDIOVASCULAR: S1 and S2 present. No murmurs, rubs, or gallops. PULMONARY: Decreased air entry with some basilar crackles on exam ABDOMEN: Soft, nontender, nondistended, normoactive bowel sounds. No palpable organomegaly. MUSCULOSKELETAL: No joint swelling or deformity. EXTREMITIES: No cyanosis, clubbing, or pedal edema. NEUROLOGICAL: Gross neurological examination did not reveal any focal deficits. SKIN: No rashes. Note: Because of COVID 19 isolation, some of the history and physical exam findings or indirect and obtained from nursing staff, and other physician examinations to avoid unnecessary contact with the patient. - Labs CBC & Chem 7: 01/17/20 07:48 01/16/20 06:51 Labs: Abnormal Lab Results - Last 24 Hours (Table) 01/16/20 01/16/20 01/17/20 Range/Units 16:46 20:52 06:07 Hgb (11.4-16.0) gm/dL Hct (34.0-46.0) % RDW (11.5-15.5) % POC Glucose (mg/dL) 115 H 124 H 105 H (75-99) mg/dL 01/17/20 01/17/20 Range/Units 07:48 11:49 Hgb 10.2 L (11.4-16.0) gm/dL Hct 32.2 L (34.0-46.0) % RDW 16.0 H (11.5-15.5) % POC Glucose (mg/dL) 114 H (75-99) mg/dL Microbiology - Last 24 Hours (Table) 01/15/20 05:29 Blood Culture - Preliminary Blood No Growth after 48 hours 01/15/20 15:30 Urine Culture - Final Urine,Voided Assessment and Plan Plan: 7 acute hypoxic respiratory failure: Secondary to right lower lobe pneumonia, can be aspiration pneumonia, Covid 19 is negative, rule out Covid 19 patient is bacteremic with Klebsiella pansensitive patient is presently on Rocephin other antibiotics were discontinued. -Sepsis secondary gram-negative Klebsiella pneumonia hyponatremic improved probably hypovolemic hyponatremia improved now Hypokalemia potassium was supplemented -Atrial fibrillation paroxysmal patient is presently rate controlled patient was started on metoprolol or change to twice a day and clonidine is being held patient heart rate is well controlled and the patient is on losartan dose of which will be resumed to home dose -Hypertension: Patient has uncontrolled elevated blood pressure, patient was started on hydralazine will monitor today. Possibly of discharge tomorrow. Patient does have doesn't have any evidence of hypertensive emergency -Type 2 diabetes mellitus DVT prophylaxis patient was started back on Eliquis and Lovenox will be disco ntinued
[2020-01-17] MEDS: hydrALAZINE HCL 50 MG TAB PO SCH ×3 (13:10→23:59)
[2020-01-17 13:26] VITALS: BMI 44.2
[2020-01-17 17:31] LABS: Glucose,Whole Blood 125 mg/dL (75-99)
[2020-01-17 20:33] LABS: Glucose,Whole Blood 143 mg/dL (75-99)
[2020-01-17] MEDS: ATORVASTATIN 80 MG TAB PO SCH (20:42)
[2020-01-17] MEDS: CITALOPRAM HYDROBROMIDE 20 MG TAB PO SCH (20:42)
--- NOTE | 2020-01-17 23:30 | PN ---
PROGRESS NOTE DATE OF SERVICE: 01/17/2020 REASON FOR FOLLOWUP: Klebsiella bacteremia; source pneumonia. INTERVAL HISTORY: The patient is currently afebrile. The patient has been breathing comfortably. The patient denies having any chest pain or shortness of breath or cough. No nausea, no vomiting. No abdominal pain or diarrhea. PHYSICAL EXAMINATION: Blood pressure 159/72 with a pulse of 81, temperature 98.4. She is 94% on 3 L nasal cannula. General description is an elderly female lying in bed in no distress. RESPIRATORY SYSTEM: Unlabored breathing with decreased breath sounds at the base. No wheeze. HEART: S1, S2. Regular rate and rhythm. ABDOMEN: Soft. No tenderness. LABS: Hemoglobin is 10.2, white count 6.6. Blood culture repeat has been negative. DIAGNOSTIC IMPRESSION AND PLAN: Patient with Klebsiella bacteremia, source likely pneumonia. Patient currently on Rocephin and seems to have shown clinical improvement. With organism being sensitive, recommend finishing therapy with oral Cipro for another 10 days and monitor clinical course closely. MMODL / IJN: [id number] /
[2020-01-18 06:01] LABS: Glucose,Whole Blood 124 mg/dL (75-99)
[2020-01-18] MEDS: INSULIN ASPART (NovoLOG) 100 UNIT/ML VIAL SQ SCH ×4 (06:27→20:46)
[2020-01-18] MEDS: CARVEDILOL 6.25 MG TAB PO SCH ×2 (06:30→16:37)
[2020-01-18] MEDS: SODIUM CHLORIDE 0.9% 1,000 ML IV SCH (06:30)
[2020-01-18] MEDS: PANTOPRAZOLE 40 MG TABLET PO SCH (06:30)
[2020-01-18] MEDS: LOSARTAN 50 MG TAB PO SCH (08:24)
[2020-01-18] MEDS: amLODIPine 10 MG TAB PO SCH (08:24)
[2020-01-18] MEDS: hydrALAZINE HCL 50 MG TAB PO SCH ×3 (08:24→20:44)
[2020-01-18] MEDS: levETIRAcetam 500 MG TAB PO SCH ×2 (08:24→20:43)
[2020-01-18] MEDS: APIXABAN 5 MG TAB PO SCH ×2 (08:24→20:44)
[2020-01-18] MEDS: HYDROCORTISONE 2.5% RECTAL CREAM 30 GM TUBE RECTAL SCH ×2 (08:30→20:44)
[2020-01-18] MEDS: HYDROPHILIC CREAM 180 GM TUBE TOPICAL SCH (08:30)
[2020-01-18 11:32] LABS: Glucose,Whole Blood 130 mg/dL (75-99)
[2020-01-18] MEDS: cloNIDine HCL 0.2 MG TAB PO SCH ×2 (14:35→20:44)
[2020-01-18 16:41] LABS: Glucose,Whole Blood 125 mg/dL (75-99)
--- NOTE | 2020-01-18 19:44 | PN ---
PROGRESS NOTE DATE OF SERVICE: 01/18/2020 REASON FOR FOLLOWUP: Klebsiella bacteremia. INTERIM HISTORY: The patient is currently afebrile. Still having a problem with controlling blood pressure. The patient denies having any chest pain or shortness of breath. Minimal cough. No abdominal pain.. No diarrhea. PHYSICAL EXAMINATION: Blood pressure 119/87 with a pulse of 92, temperature 98.1. She is 92% on 4 L nasal cannula. General description is an elderly female lying in bed in no distress. Respiratory system: Unlabored breathing. Clear to auscultation anteriorly. Heart S1, S2. Regular rate and rhythm. Abdomen soft, no tenderness. LABS: Hemoglobin is 10.8, white count 6.6, BUN of 15, creatinine 0.88. DIAGNOSTIC IMPRESSION AND PLAN: Patient with Klebsiella pneumoniae bacteremia, source is likely pneumonia. Follow up blood cultures has been negative. Patient currently covered with Rocephin. Finish therapy with oral antibiotic on discharge. Continue supportive care. MMODL / IJN: [id number] /
[2020-01-18 20:27] LABS: Glucose,Whole Blood 118 mg/dL (75-99)
[2020-01-18] MEDS: CITALOPRAM HYDROBROMIDE 20 MG TAB PO SCH (20:43)
[2020-01-18] MEDS: ATORVASTATIN 80 MG TAB PO SCH (20:44)
[2020-01-19 05:41] LABS: Glucose,Whole Blood 111 mg/dL (75-99)
[2020-01-19 06:24] LABS: African American GFR (CKD) >90 (>60 ml/min/1.73 sqM); Anion Gap 6 mmol/L; Blood Urea Nitrogen 6 mg/dL (7-17); Calcium 8.5 mg/dL (8.4-10.2); Carbon Dioxide 24 mmol/L (22-30); Chloride 108 mmol/L (98-107); Glucose 97 mg/dL (74-99); Non-African American GFR(CKD) >90 (>60 ml/min/1.73 sqM); Potassium 3.3 mmol/L (3.5-5.1); Sodium 138 mmol/L (137-145)
[2020-01-19 06:32] LABS: Basophils % (A) 0 %; Eosinophils # (A) 0.1 k/uL (0-0.7); Eosinophils % (A) 2 %; HCT 29.6 % (34.0-46.0); HGB 9.1 gm/dL (11.4-16.0); Hypochromasia Moderate; Lymphocytes # (A) 1.1 k/uL (1.0-4.8); Lymphocytes % (A) 23 %; MCHC 30.9 g/dL (31.0-37.0); MCV 84.3 fL (80.0-100.0); Mean Platelet Volume 8.4; Monocytes # (A) 0.4 k/uL (0-1.0); Monocytes % (A) 7 %; Neutrophils # (A) 3.1 k/uL (1.3-7.7); Neutrophils % (A) 65 %; Platelet Count 258 k/uL (150-450); RBC 3.51 m/uL (3.80-5.40); RDW 15.6 % (11.5-15.5); WBC 4.8 k/uL (3.8-10.6)
[2020-01-19] MEDS: PANTOPRAZOLE 40 MG TABLET PO SCH (06:32)
[2020-01-19] MEDS: INSULIN ASPART (NovoLOG) 100 UNIT/ML VIAL SQ SCH ×4 (06:32→20:57)
[2020-01-19] MEDS: CARVEDILOL 6.25 MG TAB PO SCH ×2 (06:32→18:15)
[2020-01-19] MEDS: SODIUM CHLORIDE 0.9% 1,000 ML IV SCH (06:33)
[2020-01-19] MEDS: hydrALAZINE HCL 50 MG TAB PO SCH ×3 (07:35→20:54)
[2020-01-19] MEDS: LOSARTAN 50 MG TAB PO SCH (07:35)
[2020-01-19] MEDS: levETIRAcetam 500 MG TAB PO SCH ×2 (07:35→20:55)
[2020-01-19] MEDS: APIXABAN 5 MG TAB PO SCH ×2 (07:36→20:55)
[2020-01-19] MEDS: cloNIDine HCL 0.2 MG TAB PO SCH ×3 (07:36→20:55)
[2020-01-19] MEDS: amLODIPine 10 MG TAB PO SCH (07:36)
[2020-01-19] MEDS: HYDROPHILIC CREAM 180 GM TUBE TOPICAL SCH (07:46)
[2020-01-19] MEDS: HYDROCORTISONE 2.5% RECTAL CREAM 30 GM TUBE RECTAL SCH ×2 (07:46→20:57)
[2020-01-19 12:00] LABS: Glucose,Whole Blood 142 mg/dL (75-99)
[2020-01-19 17:10] LABS: Glucose,Whole Blood 107 mg/dL (75-99)
[2020-01-19] MEDS: ATORVASTATIN 80 MG TAB PO SCH (20:54)
[2020-01-19] MEDS: CITALOPRAM HYDROBROMIDE 20 MG TAB PO SCH (20:55)
[2020-01-19 20:59] LABS: Glucose,Whole Blood 103 mg/dL (75-99)
--- NOTE | 2020-01-19 22:19 | PN ---
PROGRESS NOTE DATE OF SERVICE: 01/19/2020 REASON FOR FOLLOWUP: Klebsiella bacteremia, source pneumonia. INTERVAL HISTORY: The patient is currently afebrile. She is breathing comfortably. She has seemed to be upset and wants to go home. No chest pain, no abdominal pain, no diarrhea. PHYSICAL EXAMINATION: Blood pressure 151/67 with a pulse of 95, temperature 98.5. She is 9=% on 4 L nasal cannula. General description is an elderly female lying in bed in no distress. Respiratory system: Unlabored breathing, decreased breath sounds at the base. No wheeze. Heart: S1, S2. Regular rate and rhythm. Abdomen soft, no tenderness. LABS: White count is normal. DIAGNOSTIC IMPRESSION AND PLAN: Patient with Klebsiella bacteremia, source likely right-sided pneumonia, question of aspiration. On Rocephin, transition to Augmentin 875 b.i.d. for about 10 days on discharge. Continue supportive care. MMODL / IJN: [id number] /
--- NOTE | 2020-01-19 23:14 | P.PN ---
Subjective Progress Note Date: 01/18/20 Ms. Segovia is a 64-year-old female with a past medical history of diabetes mellitus, hypertension, atrial fibrillation, CVA/TIA coming to the hospital with a chief complaint of cough and difficulty in breathing. Patient was febrile with 102 degrees Fahrenheit. At the time of admission patient's chest x-ray was consistent for atypical pneumonia. She tested negative for influenza PCR and coronavirus. ID Dr. Vera has been consulted. Patient had blood cultures done that were positive for gram-negative bacilli, positive for Klebsiella. Patient is currently being treated with ceftriaxone. On 01/18/2020 -patient is lying comfortably in the bed. Appears to be in no acute distress. Patient states that her respiratory status is improving. She has less cough. On review of systems-constitutional denies having any fevers chills or rigors. Respirato -shortness of breath is improving. Cough is improving. Gastrointestinal denies having any nausea or vomiting. Cardiovascular -no chest pain or palpitations. Patient labs and medications have been reviewed. Active Medications Acetaminophen (Tylenol Tab) 650 mg PO Q6HR PRN PRN Reason: Fever and/ or Pain Last Admin: 01/14/20 18:53 Dose: 650 mg Documented by: Acetaminophen/Codeine Phosphate (Tylenol #3) 1 each PO Q6H PRN PRN Reason: Pain Last Admin: 01/16/20 01:08 Dose: 1 each Documented by: Amlodipine Besylate (Norvasc) 10 mg PO DAILY [facility] Last Admin: 01/18/20 08:24 Dose: 10 mg Documented by: Apixaban (Eliquis) 5 mg PO BID [facility] Last Admin: 01/18/20 20:44 Dose: 5 mg Documented by: Atorvastatin Calcium (Lipitor) 80 mg PO [facility] Last Admin: 01/18/20 20:44 Dose: 80 mg Documented by: Carvedilol (Coreg) 6.25 mg PO BID-W/MEALS [facility] Last Admin: 01/18/20 16:37 Dose: 6.25 mg Documented by: Citalopram Hydrobromide (Celexa) 40 mg PO [facility] Last Admin: 01/18/20 20:43 Dose: 40 mg Documented by: Clonidine (Catapres) 0.2 mg PO TID [facility] Last Admin: 04/11/20 20:44 Dose: 0.2 mg Documented by: Hydralazine HCl (Apresoline) 100 mg PO TID [facility] Last Admin: 01/18/20 20:44 Dose: 100 mg Documented by: Hydrocortisone (Proctosol-Hc 2.5%) 1 applic RECTAL BID [facility] Last Admin: 01/18/20 20:44 Dose: 1 applic Documented by: Sodium Chloride (Saline 0.9%) 1,000 mls @ 20 mls/hr IV .Q24H [facility] Last Admin: 01/18/20 06:30 Dose: 20 mls/hr Documented by: Ceftriaxone Sodium 2 gm/ (Sodium Chloride) 50 mls @ 100 mls/hr IVPB Q24HR [facility] Last Admin: 01/18/20 08:23 Dose: 100 mls/hr Documented by: Insulin Aspart (Novolog) 0 unit SQ ACHS [facility]; Protocol Last Admin: 01/18/20 20:46 Dose: Not Given Documented by: Levetiracetam (Keppra) 1,000 mg PO Q12HR [facility] Last Admin: 01/18/20 20:43 Dose: 1,000 mg Documented by: Losartan Potassium (Cozaar) 100 mg PO DAILY [facility] Last Admin: 01/18/20 08:24 Dose: 100 mg Documented by: Miscellaneous Information (Pneumonia Protocol Utilized) 1 each PO ONCE PRN PRN Reason: Per Protocol Miscellaneous Information (Magnesium Per Protocol) 1 each MISCELLANE DAILY PRN; Protocol PRN Reason: Per Protocol Miscellaneous Information (Magnesium Per Protocol) 1 each MISCELLANE DAILY PRN; Protocol PRN Reason: Per Protocol Multi-Ingred Cream/Lotion/Oil/Oint (Triad Cream) 1 applic TOPICAL DAILY [facility] Last Admin: 01/18/20 08:30 Dose: 1 applic Documented by: Pantoprazole Sodium (Protonix) 40 mg PO AC-BRKFST [facility] Last Admin: 01/18/20 06:30 Dose: 40 mg Documented by: Objective - Vital Signs Vital signs: Vital Signs Temp 98.1 F 01/18/20 11:35 Pulse 92 01/18/20 12:00 Resp 18 01/18/20 12:00 BP 192/87 01/18/20 11:35 Pulse Ox 92 L 01/18/20 11:35 Intake & Output 01/17/20 01/18/20 01/18/20 18:59 06:59 18:59 Intake Total 330 800 Output Total 800 1305 2 Balance -470 -505 -2 Weight 117 kg 116 kg Intake: Intake, IV Titration 20 Amount Sodium Chloride 0.9% 1, 20 000 ml @ 20 mls/hr IV . Q24H [facility] Rx#:[id number] Oral 330 780 Output: Urine 800 1300 Stool 5 2 Other: Voiding Method Incontinent Incontinent Incontinent # Voids 2 2 2 # Bowel Movements 1 - Exam PHYSICAL EXAMINATION: GENERAL: The patient is alert and oriented x3, not in any acute distress. Well developed, well nourished. HEENT: No pallor, no icterus CARDIOVASCULAR: S1 and S2 present. . PULMONARY: Decreased air entry with some basilar crackles on exam ABDOMEN: Soft, nontender, nondistended, normoactive bowel sounds. MUSCULOSKELETAL: No joint swelling or deformity. EXTREMITIES: No cyanosis, clubbing, or pedal edema. NEUROLOGICAL: Gross neurological examination did not reveal any focal deficits. Note: Because of [facility] 19 isolation, some of the history and physical exam findings are indirect and obtained from nursing staff, and other physician examinations to avoid unnecessary contact with the patient. - Labs CBC & Chem 7: 01/17/20 07:48 01/16/20 06:51 Labs: Abnormal Lab Results - Last 24 Hours (Table) 01/17/20 01/17/20 01/18/20 Range/Units 17:13 20:31 05:59 POC Glucose (mg/dL) 125 H 143 H 124 H (75-99) mg/dL 01/18/20 Range/Units 11:30 POC Glucose (mg/dL) 130 H (75-99) mg/dL Microbiology - Last 24 Hours (Table) 01/15/20 05:29 Blood Culture - Preliminary Blood No Growth after 72 hours Assessment and Plan Assessment: ASSESSMENT Acute hypoxic respiratory failure secondary to right lower lobe pneumonia Sepsis secondary to Klebsiella pneumonia Hypovolemic hyponatremia improving Hypokalemia improving Hypomagnesemia Paroxysmal atrial fibrillation Hypertension Type 2 diabetes mellitus History of seizures PLAN: Patient's respiratory status is improving gradually. She is saturating at 94% on 4 L of oxygen. Patient's repeat blood cultures have been negative. We will replace electrolytes. Continue antibiotics in the form of ceftriaxone. Protonix for GI prophylaxis. Patient is on Eliquis for anticoagulation. Continue the rest of her current medication regimen. Further recommendations to follow depending on the progress of the patient.
[2020-01-20 00:24] VITALS: RESP 20
[2020-01-20] MEDS: INSULIN ASPART (NovoLOG) 100 UNIT/ML VIAL SQ SCH ×2 (06:28→11:51)
[2020-01-20 06:29] LABS: Glucose,Whole Blood 104 mg/dL (75-99)
[2020-01-20] MEDS: CARVEDILOL 6.25 MG TAB PO SCH (06:33)
[2020-01-20] MEDS: PANTOPRAZOLE 40 MG TABLET PO SCH (06:33)
[2020-01-20] MEDS ORDERED: Potassium Replacement Protocol 1 EACH MISC MISCELLANE PRN (08:19)
[2020-01-20] MEDS ORDERED: POTASSIUM CHLORIDE ER 20 MEQ TAB.ER PO SCH (09:00)
[2020-01-20 09:18] VITALS: BP 149/89; PULSE 66; TEMP 98.3
[2020-01-20] MEDS: levETIRAcetam 500 MG TAB PO SCH (09:51)
[2020-01-20] MEDS: LOSARTAN 50 MG TAB PO SCH (09:51)
[2020-01-20] MEDS: cloNIDine HCL 0.2 MG TAB PO SCH (09:52)
[2020-01-20] MEDS: HYDROPHILIC CREAM 180 GM TUBE TOPICAL SCH (09:52)
[2020-01-20] MEDS: amLODIPine 10 MG TAB PO SCH (09:52)
[2020-01-20] MEDS: HYDROCORTISONE 2.5% RECTAL CREAM 30 GM TUBE RECTAL SCH (09:52)
[2020-01-20] MEDS: APIXABAN 5 MG TAB PO SCH (09:52)
[2020-01-20] MEDS: SODIUM CHLORIDE 0.9% 1,000 ML IV SCH (09:53)
[2020-01-20] MEDS: hydrALAZINE HCL 50 MG TAB PO SCH (09:57)
[2020-01-20 11:52] LABS: Glucose,Whole Blood 108 mg/dL (75-99)
--- NOTE | 2020-01-20 13:39 | P.DS ---
Providers Date of admission: 01/14/20 07:00 Expected date of discharge: 01/20/20 Attending physician: Kristi Pino Consults: 01/14/20 07:06 Consult Physician Urgent Consulting Provider: Sabrina Santiago Consult Reason/Comments: pneumonia. Do you want consulting provider notified?: Yes 01/14/20 07:22 Consult Physician Routine Consulting Provider: Miko Morales Consult Reason/Comments: elevated troponin I Do you want consulting provider notified?: Yes 01/14/20 18:13 Consult Physician Routine Consulting Provider: Nedra Dutta Consult Reason/Comments: positive blood cultures Do you want consulting provider notified?: Yes, Notify in am Primary care physician: Rhys Holley Hospital Course: Final diagnosis Acute hypoxic respiratory failure secondary to right lower lobe pneumonia Sepsis secondary to Klebsiella pneumonia Hypovolemic hyponatremia Hypokalemia Hypomagnesemia Paroxysmal atrial fibrillation Hypertension Type II diabetes mellitus History of seizures Discharge disposition Patient is being discharged in a stable condition with guarded prognosis to home and will continue with home care. Patient will follow-up with Dr. Holley in the outpatient setting along with Dr. Arellano and Dr. MATILDA Alicea. Patient will continue on a short course of oral antibiotics in the form of Augmentin twice daily for the next 10 days. Total time taken is 35 minutes. History of present illness This is a 64-year-old female who was recently admitted with difficulty in breathing and cough and was found to be febrile and was being closely monitored. Patient's x-ray during hospitalization was consistent for atypical pneumonia. Patient was tested for influenza along with coronavirus and was negative. Factious disease was following. Patient remained on IV antibiotics in the form of ceftriaxone and cultures finalized showing Klebsiella pneumonia and we'll transition to oral antibiotics in the form of Augmentin twice daily for the next 10 days patient will also be continuing with home care in the outpatient setting. Currently no reports of chest pain, worsening shortness of breath, or palpitations. Patient is afebrile. No reports of nausea or vomiting and hal ent is tolerating diet. Patient be going home today. On exam vital signs are stable. Temp is 98.3F, pulse is 66, respirations are 20, blood pressure is 149/89, oxygen saturation is 97% on 2 L via nasal cannula. Cardio S1, S2 are present. Respiratory system shows diminished breath sounds at the bases with a few scattered rhonchi noted. Abdomen is soft and nontender. Nervous system shows no focal deficits Please refer to medication reconciliation sheet for a list of medications. Patient Condition at Discharge: Stable Plan - Discharge Summary Discharge Rx Participant: No New Discharge Prescriptions: New hydrALAZINE HCL [Apresoline] 100 mg PO TID 30 Days #90 tab Amoxic-Pot Clav 875-125Mg [Augmentin 875-125] 1 tab PO Q12HR 10 Days #20 tab cloNIDine HCL [Catapres] 0.2 mg PO TID 30 Days #90 tab Carvedilol [Coreg] 6.25 mg PO BID-W/MEALS 30 Days #60 tab Continue Acetaminophen with Codeine [Tylenol w/codeine #3] 1 tab PO Q6H PRN PRN Reason: Pain Discontinued cloNIDine HCL [Catapres] 0.2 mg PO BID #60 tab hydrALAZINE HCL [Apresoline] 50 mg PO TID #90 tab No Action metFORMIN HCL [Glucophage] 500 mg PO AC-BID Atorvastatin [Lipitor] 80 mg PO HS Pantoprazole [Protonix] 40 mg PO DAILY Losartan Potassium 100 mg PO DAILY Citalopram Hydrobromide [CeleXA] 40 mg PO HS Metoprolol Tartrate [Lopressor] 25 mg PO DAILY Apixaban [Eliquis] 5 mg PO BID Hydrocortisone Pr Cream [Proctosol-Hc 2.5%] 1 applic RECTAL BID #1 applic levETIRAcetam [Keppra] 1,000 mg PO Q12HR #60 tab Hydrophilic Cream [Triad Cream] 1 applic TOPICAL DAILY #1 applic Acetaminophen Tab [Tylenol] 650 mg PO Q6HR PRN tab PRN Reason: Fever And/ Or Pain amLODIPine [Norvasc] 10 mg PO DAILY #30 tablet Discharge Medication List metFORMIN HCL [Glucophage] 500 mg PO AC-BID 05/30/16 [History] Atorvastatin [Lipitor] 80 mg PO HS 03/22/19 [History] Losartan Potassium 100 mg PO DAILY 03/22/19 [History] Pantoprazole [Protonix] 40 mg PO DAILY 03/22/19 [History] Citalopram Hydrobromide [CeleXA] 40 mg PO HS 07/06/19 [History] Apixaban [Eliquis] 5 mg PO BID 10/09/19 [History] Metoprolol Tartrate [Lopressor] 25 mg PO DAILY 10/09/19 [History] Hydrocortisone Pr Cream [Proctosol-Hc 2.5%] 1 applic RECTAL BID #1 applic 10/31/19 [Rx] Acetaminophen Tab [Tylenol] 650 mg PO Q6HR PRN tab 11/12/19 [Rx] Hydrophilic Cream [Triad Cream] 1 applic TOPICAL DAILY #1 applic 11/12/19 [Rx] amLODIPine [Norvasc] 10 mg PO DAILY #30 tablet 11/12/19 [Rx] levETIRAcetam [Keppra] 1,000 mg PO Q12HR #60 tab 11/12/19 [Rx] Acetaminophen with Codeine [Tylenol w/codeine #3] 1 tab PO Q6H PRN 01/14/20 [History] Amoxic-Pot Clav 875-125Mg [Augmentin 875-125] 1 tab PO Q12HR 10 Days #20 tab 01/20/20 [Rx] Carvedilol [Coreg] 6.25 mg PO BID-W/MEALS 30 Days #60 tab 01/20/20 [Rx] cloNIDine HCL [Catapres] 0.2 mg PO TID 30 Days #90 tab 01/20/20 [Rx] hydrALAZINE HCL [Apresoline] 100 mg PO TID 30 Days #90 tab 01/20/20 [Rx] Follow up Appointment(s)/Referral(s): Rhys Holley MD [Primary Care Provider] - 1-2 days Ora Arellano MD [STAFF PHYSICIAN] - 1 Week Asuncion Alicea MD [STAFF PHYSICIAN] - 1 Week [facility], [NON-STAFF] - Patient Instructions/Handouts: Urinary Tract Infection in Women (DC), Hypertension (DC), Pneumonia (DC) Activity/Diet/Wound Care/Special Instructions: PNEUMONIA 1. Continue coughing and breathing exercises to help clear your lungs of secretions. 2. Sit upright during the day to promote lung expansion. Avoid lying flat. 3. Use incentive spirometer every hour to open your airways. 4. Wash your hands before taking your medications or using your nebulizer. 5. Drink clear liquids as directed, they can help loosen secretions. Avoid milk products, as these can make secretions thicker. 6. Do not smoke, or be around others who smoke. 7. Call your physician if your shortness of breath worsens, if you develop an increased fever greater than 100.4.
--- NOTE | 2020-01-20 18:04 | PN ---
PROGRESS NOTE DATE OF SERVICE: 01/20/2020 REASON FOR FOLLOWUP: Klebsiella bacteremia secondary to pneumonia. INTERVAL HISTORY: The patient is currently afebrile. The patient is breathing comfortable. Denies having any chest pain or shortness of breath or cough. No nausea, no vomiting, no abdominal pain, no diarrhea. PHYSICAL EXAMINATION: On examination, blood pressure 149/89 with a pulse of 66. Temperature 98.3. She is 97% on 2 L nasal cannula. General description is an elderly female lying in bed in no distress. RESPIRATORY SYSTEM: Unlabored breathing. Clear to ausculation anteriorly. HEART: S1, S2. Regular rate and rhythm. ABDOMEN: Soft. No tenderness. LABS: Follow-up blood culture has been negative. DIAGNOSTIC IMPRESSION AND PLAN: Patient with Klebsiella bacteremia. Source is likely pneumonia, possible aspiration. Overall improvement. Finish therapy with oral Augmentin and close outpatient followup. MMODL / IJN: [id number] /
--- NOTE | 2020-01-20 23:49 | P.PN ---
Subjective Progress Note Date: 01/19/20 Principal diagnosis: Gram negative sepsis Ms. Segovia is a 64-year-old female with a past medical history of diabetes mellitus, hypertension, atrial fibrillation, CVA/TIA coming to the hospital with a chief complaint of cough and difficulty in breathing. Patient was febrile with 102 degrees Fahrenheit. At the time of admission patient's chest x-ray was consistent for atypical pneumonia. She tested negative for influenza PCR and coronavirus. ID Dr. Dutta has been consulted. Patient had blood cultures done that were positive for gram-negative bacilli, positive for Klebsiella. Patient is currently being treated with ceftriaxone. On 01/18/2020 -patient is lying comfortably in the bed. Appears to be in no acute distress. Patient states that her respiratory status is improving. She has less cough. On review of systems-constitutional denies having any fevers chills or rigors. Respirato -shortness of breath is improving. Cough is improving. Gastrointes tinal denies having any nausea or vomiting. Cardiovascular -no chest pain or palpitations. On 01/19/2020 -patient is comfortably lying in bed. States that her respiratory status is getting better day by day with less cough. Patient denies having any other active complaints and looking forward to go home. Patient's vitals reviewed temperature 97.9 blood pressure 149 /undereating the patient's labs 62 saturating at 97% on 4 L of oxygen. Hemoglobin is stable at 9.1. Sodium 138, potassium is 3.3 and creatinine is 0.64. Active Medications Acetaminophen (Tylenol Tab) 650 mg PO Q6HR PRN PRN Reason: Fever and/ or Pain Last Admin: 01/14/20 18:53 Dose: 650 mg Documented by: Acetaminophen/Codeine Phosphate (Tylenol #3) 1 each PO Q6H PRN PRN Reason: Pain Last Admin: 01/16/20 01:08 Dose: 1 each Documented by: Amlodipine Besylate (Norvasc) 10 mg PO DAILY [facility] Last Admin: 01/19/20 07:36 Dose: 10 mg Documented by: Apixaban (Eliquis) 5 mg PO BID [facility] Last Admin: 01/19/20 07:36 Dose: 5 mg Documented by: Atorvastatin Calcium (Lipitor) 80 mg PO HS [facility] Last Admin: 01/18/20 20:44 Dose: 80 mg Documented by: Carvedilol (Coreg) 6.25 mg PO BID-W/MEALS [facility] Last Admin: 01/19/20 18:15 Dose: 6.25 mg Documented by: Citalopram Hydrobromide (Celexa) 40 mg PO HS [facility] Last Admin: 01/18/20 20:43 Dose: 40 mg Documented by: Clonidine (Catapres) 0.2 mg PO TID [facility] Last Admin: 01/19/20 18:15 Dose: 0.2 mg Documented by: Hydralazine HCl (Apresoline) 100 mg PO TID [facility] Last Admin: 01/19/20 18:15 Dose: 100 mg Documented by: Hydrocortisone (Proctosol-Hc 2.5%) 1 applic RECTAL BID [facility] Last Admin: 01/19/20 07:46 Dose: 1 applic Documented by: Sodium Chloride (Saline 0.9%) 1,000 mls @ 20 mls/hr IV .Q24H [facility] Last Admin: 01/19/20 06:33 Dose: 20 mls/hr Documented by: Ceftriaxone Sodium 2 gm/ (Sodium Chloride) 50 mls @ 100 mls/hr IVPB Q24HR [facility] Last Admin: 01/19/20 07:36 Dose: 100 mls/hr Documented by: Insulin Aspart (Novolog) 0 unit SQ ACHS [facility]; Protocol Last Admin: 01/19/20 18:08 Dose: Not Given Documented by: Levetiracetam (Keppra) 1,000 mg PO Q12HR [facility] Last Admin: 01/19/20 07:35 Dose: 1,000 mg Documented by: Losartan Potassium (Cozaar) 100 mg PO DAILY [facility] Last Admin: 01/19/20 07:35 Dose: 100 mg Documented by: Miscellaneous Information (Pneumonia Protocol Utilized) 1 each PO ONCE PRN PRN Reason: Per Protocol Miscellaneous Information (Magnesium Per Protocol) 1 each MISCELLANE DAILY PRN; Protocol PRN Reason: Per Protocol Miscellaneous Information (Magnesium Per Protocol) 1 each MISCELLANE DAILY PRN; Protocol PRN Reason: Per Protocol Multi-Ingred Cream/Lotion/Oil/Oint (Triad Cream) 1 applic TOPICAL DAILY [facility] Last Admin: 01/19/20 07:46 Dose: 1 applic Documented by: Pantoprazole Sodium (Protonix) 40 mg PO AC-BRKFST [facility] Last Admin: 01/19/20 06:32 Dose: 40 mg Documented by: Objective - Vital Signs Vital signs: Vital Signs Temp 97.9 F 01/19/20 12:00 Pulse 69 01/19/20 12:00 Resp 18 01/19/20 12:00 BP 139/63 01/19/20 12:00 Pulse Ox 98 01/19/20 12:00 Intake & Output 01/18/20 01/19/20 01/19/20 18:59 06:59 18:59 Intake Total 240 0 Output Total 3 453 2 Balance -3 -213 -2 Weight 116.5 kg Intake: Oral 240 0 Output: Urine 450 Stool 3 3 2 Other: Voiding Method Incontinent Incontinent Incontinent # Voids 2 # Bowel Movements 1 1 - Exam PHYSICAL EXAMINATION: GENERAL: The patient is alert and oriented x3, not in any acute distress. Resting comfortably HEENT: No pallor, no icterus CARDIOVASCULAR: S1 and S2 present. . PULMONARY: Decreased air entry with some basilar crackles on exam ABDOMEN: Soft, nontender, nondistended, normoactive bowel sounds. MUSCULOSKELETAL: No joint swelling or deformity. EXTREMITIES: No cyanosis, clubbing, or pedal edema. NEUROLOGICAL: did not reveal any focal deficits. Note: Because of COVID 19 isolation, some of the history and physical exam findings are indirect and obtained from nursing staff, and other physician examinations to avoid unnecessary contact with the patient. - Labs CBC & Chem 7: 01/19/20 05:32 01/19/20 05:32 Labs: Abnormal Lab Results - Last 24 Hours (Table) 01/18/20 01/18/20 01/19/20 Range/Units 16:40 20:25 05:32 RBC 3.51 L (3.80-5.40) m/uL Hgb 9.1 L (11.4-16.0) gm/dL Hct 29.6 L (34.0-46.0) % MCHC 30.9 L (31.0-37.0) g/dL RDW 15.6 H (11.5-15.5) % Potassium (3.5-5.1) mmol/L Chloride (98-107) mmol/L BUN (7-17) mg/dL POC Glucose (mg/dL) 125 H 118 H (75-99) mg/dL 01/19/20 01/19/20 01/19/20 Range/Units 05:32 05:39 11:43 RBC (3.80-5.40) m/uL Hgb (11.4-16.0) gm/dL Hct (34.0-46.0) % MCHC (31.0-37.0) g/dL RDW (11.5-15.5) % Potassium 3.3 L (3.5-5.1) mmol/L Chloride 108 H (98-107) mmol/L BUN 6 L (7-17) mg/dL POC Glucose (mg/dL) 111 H 142 H (75-99) mg/dL Microbiology - Last 24 Hours (Table) 01/15/20 05:29 Blood Culture - Preliminary Blood No Growth after 96 hours Assessment and Plan Assessment: ASSESSMENT Acute hypoxic respiratory failure secondary to right lower lobe pneumonia Sepsis secondary to Klebsiella pneumonia Hypovolemic hyponatremia improving Hypokalemia improving Hypomagnesemia Paroxysmal atrial fibrillation Hypertension Type 2 diabetes mellitus History of seizures PLAN: Patient's respiratory status is improving gradually. She is saturating at 94% on 4 L of oxygen. Patient's repeat blood cultures have been negative. We will replace electrolytes. Continue antibiotics in the form of ceftriaxone. Protonix for GI prophylaxis. Patient is on Eliquis for anticoagulation. Continue the rest of her current medication regimen. Anticipate discharge in the next 24 hours.
== END 2020-01-20 14:03 | disposition home health service (06) | DRG 871 ==
LOC: EC 04:48 → 3SCARD 07:00
PROVIDERS: ADMIT Hospitalist; ATTEND Hospitalist
DX: A41.59 Other Gram-negative sepsis (principal); L89.153 Pressure ulcer of sacral region, stage 3; J96.01 Acute respiratory failure with hypoxia; J18.9 Pneumonia, unspecified organism; I21.A1 Myocardial infarction type 2; E87.1 Hypo-osmolality and hyponatremia; N39.0 Urinary tract infection, site not specified; I50.32 Chronic diastolic (congestive) heart failure; E87.6 Hypokalemia; E86.1 Hypovolemia; I48.0 Paroxysmal atrial fibrillation; Z20.828 Contact with and (suspected) exposure to other viral communicable diseases; I11.0 Hypertensive heart disease with heart failure; E11.622 Type 2 diabetes mellitus with other skin ulcer; E78.5 Hyperlipidemia, unspecified; F32.9 Major depressive disorder, single episode, unspecified; L98.499 Non-pressure chronic ulcer of skin of other sites with unspecified severity; E83.42 Hypomagnesemia; R56.9 Unspecified convulsions; B96.1 Klebsiella pneumoniae [K. pneumoniae] as the cause of diseases classified elsewhere; Z79.84 Long term (current) use of oral hypoglycemic drugs; Z79.01 Long term (current) use of anticoagulants; Z79.899 Other long term (current) drug therapy; Z86.14 Personal history of Methicillin resistant Staphylococcus aureus infection; Z86.19 Personal history of other infectious and parasitic diseases; Z98.51 Tubal ligation status; Z98.890 Other specified postprocedural states; Z87.891 Personal history of nicotine dependence; Z83.3 Family history of diabetes mellitus; Z82.49 Family history of ischemic heart disease and other diseases of the circulatory system; Z84.1 Family history of disorders of kidney and ureter; Z86.73 Personal history of transient ischemic attack (TIA), and cerebral infarction without residual deficits
CPT/HCPCS: 36415; 71045; 80048; 80053; 81001; 82728; 83036; 83605; 83615; 83735; 83880; 84132; 84484; 85025; 85027; 85379; 85610; 85730; 86140; 87040; 87077; 87086; 87186; 87502; 87635; 93005; 93306; 96365; 99285

== ENCOUNTER 2020-02-04 16:03 | Inpatient (IN) | payer MEDICARE, BC ==
[2020-02-04] MEDS ORDERED: SODIUM CHLORIDE 0.9% 500 ML 500 ML IV STA (16:19)
[2020-02-04 17:08] LABS: INR 1.8 (<1.2); Partial Thromboplastin Time 26.5 sec (22.0-30.0); Prothrombin Time 17.4 sec (9.0-12.0)
[2020-02-04 17:12] LABS: Albumin 2.7 g/dL (3.5-5.0); C Reactive Protein 32.7 mg/L (<10.0); Total Bilirubin 0.7 mg/dL (0.2-1.3); Total Protein 6.2 g/dL (6.3-8.2)
[2020-02-04 17:13] LABS: HGB 11.2 gm/dL (11.4-16.0); Hypochromasia Moderate; MCH 26.5 pg (25.0-35.0); MCHC 31.8 g/dL (31.0-37.0); MCV 83.3 fL (80.0-100.0); Platelet Count 152 k/uL (150-450); RDW 15.6 % (11.5-15.5); WBC 4.4 k/uL (3.8-10.6)
[2020-02-04 17:14] LABS: Potassium 4.4 mmol/L (3.5-5.1)
--- NOTE | 2020-02-04 17:22 | XR ---
EXAMINATION TYPE: XR chest 1V portable DATE OF EXAM: 02/04/2020 COMPARISON: Chest x-ray January 15, 2020. HISTORY: Hypotension and weakness. Suspected COVID-19 pneumonia TECHNIQUE: Two AP portable frontal upright view of the chest is obtained. FINDINGS: Patient rotated to right on current study similar to prior makes evaluation suboptimal. Th e cardiac silhouette size remains enlarged. New small right pleural effusion. New patchy right mid an d basilar opacities. Left lung is clear. The osseous structures are intact. IMPRESSION: Cardiomegaly with new small right pleural effusion. Patchy right mid and basilar acute a telectasis and/or infiltrate noted.
[2020-02-04] MEDS ORDERED: NALOXONE 0.4 MG/ML 1 ML VIAL IV PRN (17:32)
--- NOTE | 2020-02-04 17:32 | ED ---
General Adult HPI - General Chief complaint: Recheck/Abnormal Lab/Rx Stated complaint: Low BP, Poss COVID Time Seen by Provider: 02/04/20 16:18 Source: patient, family Mode of arrival: wheelchair Limitations: no limitations - History of Present Illness Initial comments: Dictation was produced using QBE dictation software. please excuse any gramm atical, word or spelling errors. This patient was cared for during a federal and state declared state of emergency secondary to Covid 19 Chief Complaint: 64-year-old female with past medical history atrial fibrillation, diabetes and hypertension presents with hypoxia. History of Present Illness: 64-year-old female she was sent here through triage. Patient has been having low oxygen. She wears oxygen at home. According to patient HER-2 daughters tested positive for coronavirus. 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 Patient states she feels well. She does not feel the need to be here. She has no pain complaints. The ROS documented in this emergency department record has been reviewed and confirmed by me. Those systems with pertinent positive or negative responses have been documented in the HPI. All other systems are other negative and/or noncontributory. PHYSICAL EXAM: General Impression: Alert and oriented x3, not in acute distress HEENT: Normocephalic atraumatic, extra-ocular movements intact, pupils equal and reactive to light bilaterally, mucous membranes moist. Cardiovascular: Heart regular rate and rhythm Chest: Able to complete full sentences, no retractions, no tachypnea Abdomen: abdomen soft, non-tender, non-distended, no organomegaly Musculoskeletal: Pulses present and equal in all extremities, no peripheral edema Motor: no focal deficits noted Neurological: CN II-XII grossly intact, no focal motor or sensory deficits noted Skin: Intact with no visualized rashes Psych: Normal affect and mood ED course: 64-year-old female presents with hypoxia and low blood pressure. Upon arrival shows hypoxia of 87% on room air, blood pressure 80/48. Lab return evaluation obtained. CBC unremarkable. Coag panel shows INR 1.8. Metabolic panel shows mild non-gap acidosis. Hypomagnesemia of 1.0. Elevated CRP and LDH. Coronavirus test is positive. Chest x-ray shows patchy right mid and basilar acute atelectasis versus infiltrate. She reevaluated at bedside. She is put on supplemental oxygen. Her O2 saturation 97% on 2 L nasal cannula. Patient be admitted for hypoxic respiratory failure. Patient will be admitted to [facility] hospitalist group. EKG interpretation: Ventricular rate 53, sinus bradycardia tachycardia,. Interval 156, QRS 84, QTC 459. No VA prolongation, no QTC prolongation, no ST or T-wave changes noted. EKG compared to 01/14/2020 showing no changes. Overall, this EKG is unremarkable - Related Data Home Medications Medication Instructions Recorded Confirmed metFORMIN HCL [Glucophage] 500 mg PO AC-BID 05/30/16 01/14/20 Atorvastatin [Lipitor] 80 mg PO HS 03/22/19 01/14/20 Losartan Potassium 100 mg PO DAILY 03/22/19 01/14/20 Pantoprazole [Protonix] 40 mg PO DAILY 03/22/19 01/14/20 Citalopram Hydrobromide [CeleXA] 40 mg PO HS 07/06/19 01/14/20 Apixaban [Eliquis] 5 mg PO BID 10/09/19 01/14/20 Metoprolol Tartrate [Lopressor] 25 mg PO DAILY 10/09/19 01/14/20 Acetaminophen with Codeine 1 tab PO Q6H PRN 01/14/20 01/14/20 [Tylenol w/codeine #3] Previous Rx's Medication Instructions Recorded Hydrocortisone Pr Cream 1 applic RECTAL BID #1 applic 10/31/19 [Proctosol-Hc 2.5%] Acetaminophen Tab [Tylenol] 650 mg PO Q6HR PRN tab 11/12/19 Hydrophilic Cream [Triad Cream] 1 applic TOPICAL DAILY #1 applic 11/12/19 amLODIPine [Norvasc] 10 mg PO DAILY #30 tablet 11/12/19 levETIRAcetam [Keppra] 1,000 mg PO Q12HR #60 tab 11/12/19 Amoxic-Pot Clav 875-125Mg 1 tab PO Q12HR 10 Days #20 tab 01/20/20 [Augmentin 875-125] Carvedilol [Coreg] 6.25 mg PO BID-W/MEALS 30 Days #60 01/20/20 tab cloNIDine HCL [Catapres] 0.2 mg PO TID 30 Days #90 tab 01/20/20 hydrALAZINE HCL [Apresoline] 100 mg PO TID 30 Days #90 tab 01/20/20 Allergies Allergy/AdvReac Type Severity Reaction Status Date / Time No Known Allergies Allergy Verified 02/04/20 16:16 Review of Systems ROS Statement: Those systems with pertinent positive or pertinent negative responses have been documented in the HPI. ROS Other: All systems not noted in ROS Statement are negative. Past Medical History Past Medical History: Atrial Fibrillation, CVA/TIA, Diabetes Mellitus, Hypertension Additional Past Medical History / Comment(s): cva x3- lt sided weakness, pt sta kit she is unable to walk and is bedbound History of Any Multi-Drug Resistant Organisms: ESBL, MRSA Date of last positivie culture/infection: 10/28/19 ESBL 07/06/19 MRSA MDRO Source:: URINE Past Surgical History: Tubal Ligation Additional Past Surgical History / Comment(s): CAROTID ENDART TO CLEAN OUT NECK ARTERY LEFT; miter sawyer chip placed Past Anesthesia/Blood Transfusion Reactions: No Reported Reaction Past Psychological History: Depression Smoking Status: Former smoker Past Alcohol Use History: None Reported Past Drug Use History: None Reported - Past Family History Brother(s) Family Medical History: No Reported History Sister(s) Family Medical History: Diabetes Mellitus Additional Family Medical History / Comment(s): RENAL FAILURE, ABCESSES Mother Additional Family Medical History / Comment(s): Brain Aneurism. Father Family Medical History: Diabetes Mellitus General Exam Limitations: no limitations Course Vital Signs 02/04/20 02/04/20 02/04/20 16:09 16:30 17:00 Temperature 97.8 F Pulse Rate 73 51 L 53 L Respiratory 22 18 18 Rate Blood Pressure 80/48 110/64 94/79 O2 Sat by Pulse 87 L 94 L 97 Oximetry Medical Decision Making - Lab Data Result diagrams: 02/04/20 16:50 02/04/20 16:50 Lab Results 02/04/20 02/04/20 02/04/20 Range/Units 16:41 16:50 16:50 WBC 4.4 (3.8-10.6) k/uL RBC 4.20 (3.80-5.40) m/uL Hgb 11.2 L (11.4-16.0) gm/dL Hct 35.0 (34.0-46.0) % MCV 83.3 (80.0-100.0) fL MCH 26.5 (25.0-35.0) pg MCHC 31.8 (31.0-37.0) g/dL RDW 15.6 H (11.5-15.5) % Hypochromasia Moderate PT 17.4 H (9.0-12.0) sec INR 1.8 H (<1.2) APTT 26.5 (22.0-30.0) sec Sodium (137-145) mmol/L Potassium (3.5-5.1) mmol/L Chloride (98-107) mmol/L Carbon Dioxide (22-30) mmol/L Anion Gap mmol/L BUN (7-17) mg/dL Creatinine (0.52-1.04) mg/dL Est GFR (CKD-EPI)AfAm (>60 ml/min/1.73 sqM) Est GFR (CKD-EPI)NonAf (>60 ml/min/1.73 sqM) Glucose (74-99) mg/dL Plasma Lactic Acid Rock (0.7-2.0) mmol/L Calcium (8.4-10.2) mg/dL Magnesium (1.6-2.3) mg/dL Total Bilirubin (0.2-1.3) mg/dL AST (14-36) U/L ALT (4-34) U/L Alkaline Phosphatase (38-126) U/L Lactate Dehydrogenase (313-618) U/L C-Reactive Protein (<10.0) mg/L Total Protein (6.3-8.2) g/dL Albumin (3.5-5.0) g/dL Coronavirus (PCR) Detected A (Not Detectd) 02/04/20 02/04/20 Range/Units 16:50 16:50 WBC (3.8-10.6) k/uL RBC (3.80-5.40) m/uL Hgb (11.4-16.0) gm/dL Hct (34.0-46.0) % MCV (80.0-100.0) fL MCH (25.0-35.0) pg MCHC (31.0-37.0) g/dL RDW (11.5-15.5) % Hypochromasia PT (9.0-12.0) sec INR (<1.2) APTT (22.0-30.0) sec Sodium 135 L (137-145) mmol/L Potassium 4.4 (3.5-5.1) mmol/L Chloride 105 (98-107) mmol/L Carbon Dioxide 19 L (22-30) mmol/L Anion Gap 11 mmol/L BUN 10 (7-17) mg/dL Creatinine 0.86 (0.52-1.04) mg/dL Est GFR (CKD-EPI)AfAm 82 (>60 ml/min/1.73 sqM) Est GFR (CKD-EPI)NonAf 71 (>60 ml/min/1.73 sqM) Glucose 84 (74-99) mg/dL Plasma Lactic Acid Rock 1.2 (0.7-2.0) mmol/L Calcium 8.0 L (8.4-10.2) mg/dL Magnesium 1.0 L (1.6-2.3) mg/dL Total Bilirubin 0.7 (0.2-1.3) mg/dL AST 39 H (14-36) U/L ALT 11 (4-34) U/L Alkaline Phosphatase 78 (38-126) U/L Lactate Dehydrogenase 989 H (313-618) U/L C-Reactive Protein 32.7 H (<10.0) mg/L Total Protein 6.2 L (6.3-8.2) g/dL Albumin 2.7 L (3.5-5.0) g/dL Coronavirus (PCR) (Not Detectd) Disposition Clinical Impression: Hypoxia Disposition: ADMITTED IP TO THIS HOSP Condition: Fair Referrals: Rhys Holley MD [Primary Care Provider] - 1-2 days Decision Time: 17:31
[2020-02-04 17:55] LABS: Lymphocytes # (M) 0.66 k/uL (1.0-4.8); Monocytes # (M) 0.31 k/uL (0-1.0); Neutrophils # (M) 3.43 k/uL (1.3-7.7); Neutrophils % (M) 78 %; Nucleated Red Blood Cells 0 /100 WBC (0-0); Total Cells Counted 100
[2020-02-04 17:56] LABS: Anisocytosis (M) Present; Crenated RBC Present; Ovalocytes Present
[2020-02-04] MEDS: MAGNESIUM SULFATE-D5W PMX 1 GM in DEXTROSE/WATER 1 100ML.BAG IVPB SCH ×2 (18:05→19:44)
[2020-02-04] MEDS: SODIUM CHLORIDE 0.9% 1,000 ML IV SCH (18:05)
[2020-02-04 23:34] LABS: Ferritin 83.4 ng/mL (10.0-291.0)
[2020-02-05] MEDS: AZITHROMYCIN 500 MG TAB PO SCH (10:23)
[2020-02-05] MEDS: CLOPIDOGREL 75 MG TAB PO SCH (10:23)
[2020-02-05] MEDS: CYCLOBENZAPRINE 10 MG TAB PO SCH (10:24)
[2020-02-05] MEDS: Acetaminophen-Codeine 300-30mg TAB PO PRN ×2 (10:24→23:32)
[2020-02-05] MEDS: PANTOPRAZOLE 40 MG TABLET PO SCH (10:24)
--- NOTE | 2020-02-05 11:29 | P.HPIM ---
History of Present Illness Patient is a pleasant 64-year-old the female came in with complaints of shortness of breath and dry cough has been going on for last few days patient the has multiple family members that are positive for coronavirus because of which patient is coming Monday and came to the hospital patient's saturations were apparently lower yesterday patient is presently in 2 L at at this time saturating well. Patient is found to have COVID 19 positive. She is afebrile since hospital admission. Patient has a elevated LDH, lymphopenia and mildly elevated d-dimer. Patient does have history of atrial fibrillation multiple rate control medication actually on 2 beta blockers for will be discontinued patient is also on clonidine patient is bradycardic at this time. Patient blood pressure is low normal on multiple antidepressant medications will be held temporally now depending on her blood pressure response. Would initiate back. Patient denied any dysuria or increased urinary frequency suprapubic pain denied any due to production chest x-ray did not show any pneumonic process except for some pleural effusion and atelectasis on the right side probably from her previous pneumonia patient was recently discharged from the hospital after she was treated for Klebsiella pneumoniae pneumonia Review of Systems REVIEW OF SYSTEMS: CONSTITUTIONAL: No fever, no malaise, no fatigue. HEENT: No recent visual problems or hearing problems. Denied any sore throat. CARDIOVASCULAR: No chest pain, orthopnea, PND, no palpitations, no syncope. PULMONARY: As mentioned in HPI GASTROINTESTINAL: No diarrhea, no nausea, no vomiting, no abdominal pain. NEUROLOGICAL: No headaches, no weakness, no numbness. HEMATOLOGICAL: Denies any bleeding or petechiae. GENITOURINARY: Denies any burning micturition, frequency, or urgency. MUSCULOSKELETAL/RHEUMATOLOGICAL: Denies any joint pain, swelling, or any muscle pain. ENDOCRINE: Denies any polyuria or polydipsia. The rest of the 14-point review of systems is negative. 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 Father Family Medical History: Diabetes Mellitus Medications and Allergies Home Medications Medication Instructions Recorded Confirmed Type metFORMIN HCL [Glucophage] 500 mg PO AC-BID 05/30/16 02/04/20 History Atorvastatin [Lipitor] 80 mg PO HS 03/22/19 02/04/20 History Losartan Potassium 100 mg PO DAILY 03/22/19 02/04/20 History Pantoprazole [Protonix] 40 mg PO DAILY 03/22/19 02/04/20 History Citalopram Hydrobromide [CeleXA] 40 mg PO HS 07/06/19 02/04/20 History Apixaban [Eliquis] 5 mg PO BID 10/09/19 02/04/20 History Metoprolol Tartrate [Lopressor] 25 mg PO DAILY 10/09/19 02/04/20 History Hydrocortisone Pr Cream 1 applic RECTAL BID #1 applic 10/31/19 02/04/20 Rx [Proctosol-Hc 2.5%] Acetaminophen Tab [Tylenol] 650 mg PO Q6HR PRN tab 11/12/19 02/04/20 Rx Hydrophilic Cream [Triad Cream] 1 applic TOPICAL DAILY #1 applic 11/12/19 02/04/20 Rx amLODIPine [Norvasc] 10 mg PO DAILY #30 tablet 11/12/19 02/04/20 Rx levETIRAcetam [Keppra] 1,000 mg PO Q12HR #60 tab 11/12/19 02/04/20 Rx Acetaminophen with Codeine 1 tab PO Q6H PRN 01/14/20 02/04/20 History [Tylenol w/codeine #3] Carvedilol [Coreg] 6.25 mg PO BID-W/MEALS 30 Days #60 01/20/20 02/04/20 Rx tab cloNIDine HCL [Catapres] 0.2 mg PO TID 30 Days #90 tab 01/20/20 02/04/20 Rx hydrALAZINE HCL [Apresoline] 100 mg PO TID 30 Days #90 tab 01/20/20 02/04/20 Rx Clopidogrel [Plavix] 75 mg PO DAILY 02/04/20 02/04/20 History Cyclobenzaprine HCl 10 mg PO DAILY 02/04/20 02/04/20 History Allergies Allergy/AdvReac Type Severity Reaction Status Date / Time No Known Allergies Allergy Verified 02/04/20 16:16 Physical Exam Vitals: Vital Signs Temp Pulse Pulse Resp BP BP Pulse Ox 02/05/20 11:18 98.1 F 56 L 16 108/52 96 02/05/20 07:00 97.9 F 52 L 16 117/74 99 02/05/20 04:00 49 L 19 02/05/20 03:07 97.8 F 48 L 18 115/54 98 02/04/20 23:54 49 L 19 02/04/20 23:10 98.1 F 48 L 18 111/65 95 02/04/20 21:40 97.5 F L 49 L 19 113/56 100 02/04/20 20:00 51 L 14 121/65 99 02/04/20 19:30 98.7 F 47 L 12 136/55 97 02/04/20 19:00 52 L 18 133/81 99 02/04/20 18:30 52 L 16 131/78 98 02/04/20 18:00 54 L 15 109/57 98 02/04/20 17:42 97.5 F L 49 L 18 113/56 100 02/04/20 17:30 50 L 18 110/59 95 02/04/20 17:00 53 L 18 94/79 97 02/04/20 16:30 51 L 18 110/64 94 L 02/04/20 16:09 97.8 F 73 22 80/48 87 L Intake and Output 02/04/20 02/05/20 02/05/20 22:59 06:59 14:59 Intake Total 100 Balance 100 Intake: Intake, IV Titration 100 Amount Magnesium Sulfate-D5w Pmx 100 1 gm In Dextrose/Water 1 100ml.bag @ 100 mls/hr IVPB Q1H [facility] Rx#: [id number] Other: Voiding Method Bedpan Bedpan # Bowel Movements 1 Weight 83.915 kg PHYSICAL EXAMINATION: GENERAL: The patient is alert and oriented x3, not in any acute distress. Well developed, well nourished. HEENT: Pupils are round and equally reacting to light. EOMI. No scleral icterus. No conjunctival pallor. Normocephalic, atraumatic. No pharyngeal erythema. No thyromegaly. CARDIOVASCULAR: S1 and S2 present. No murmurs, rubs, or gallops. PULMONARY: Chest is clear to auscultation, no wheezing or crackles. ABDOMEN: Soft, nontender, nondistended, normoactive bowel sounds. No palpable organomegaly. MUSCULOSKELETAL: No joint swelling or deformity. EXTREMITIES: No cyanosis, clubbing, or pedal edema. NEUROLOGICAL: Gross neurological examination did not reveal any focal deficits. SKIN: No rashes. Note: Because of [facility] [place] [place], some of the history and physical exam findings or indirect and obtained from nursing staff, and other physician examinations to avoid unnecessary contact with the patient. Results CBC & Chem 7: 02/04/20 16:50 02/04/20 16:50 Labs: Abnormal Lab Results - Last 24 Hours (Table) 02/04/20 02/04/20 02/04/20 Range/Units 16:41 16:50 16:50 Hgb 11.2 L (11.4-16.0) gm/dL RDW 15.6 H (11.5-15.5) % Lymphocytes # (Manual) 0.66 L (1.0-4.8) k/uL PT 17.4 H (9.0-12.0) sec INR 1.8 H (<1.2) D-Dimer (<0.60) mg/L FEU Sodium (137-145) mmol/L Carbon Dioxide (22-30) mmol/L Calcium (8.4-10.2) mg/dL Magnesium (1.6-2.3) mg/dL AST (14-36) U/L Lactate Dehydrogenase (313-618) U/L C-Reactive Protein (<10.0) mg/L Total Protein (6.3-8.2) g/dL Albumin (3.5-5.0) g/dL Procalcitonin (0.02-0.09) ng/mL Coronavirus (PCR) Detected A (Not Detectd) 02/04/20 02/04/20 02/04/20 Range/Units 16:50 16:50 16:50 Hgb (11.4-16.0) gm/dL RDW (11.5-15.5) % Lymphocytes # (Manual) (1.0-4.8) k/uL PT (9.0-12.0) sec INR (<1.2) D-Dimer 0.63 H (<0.60) mg/L FEU Sodium 135 L (137-145) mmol/L Carbon Dioxide 19 L (22-30) mmol/L Calcium 8.0 L (8.4-10.2) mg/dL Magnesium 1.0 L (1.6-2.3) mg/dL AST 39 H (14-36) U/L Lactate Dehydrogenase 989 H (313-618) U/L C-Reactive Protein 32.7 H (<10.0) mg/L Total Protein 6.2 L (6.3-8.2) g/dL Albumin 2.7 L (3.5-5.0) g/dL Procalcitonin 0.11 H (0.02-0.09) ng/mL Coronavirus (PCR) (Not Detectd) Thrombosis Risk Factor Assmnt - Choose All That Apply Each Factor Represents 1 point: Obesity (BMI >25) Each Risk Factor Represents 2 Points: Age 61-74 years Thrombosis Risk Factor Assessment Total Risk Factor Score: 3 Thrombosis Risk Factor Assessment Level: Moderate Risk Assessment and Plan Plan: 1 shortness of breath and cough: Secondary to COVID 19, continue the azithromycin supportive care possibly of discharge tomorrow if patient is not hypoxemic overnight today and tomorrow. -Hypomagnesemia magnesium will be replaced repeat magnesium tomorrow -Atrial fibrillation presently bradycardic with all the rate control medications were discontinued except for metoprolol which will be started later today if her heart rate improves. Patient is on Eliquis which will continue -CVAT in the past next and heparin type 2 diabetes mellitus hold off on metformin patient was started on sliding scale insulin -Hypertension patient is hypotensive patient is on multiple antidepressant medications as of the hypotension on hold off all of them expiration blood pressure tolerates patient was started on losartan as mentioned above continue with metoprolol. -DVT prophylaxis patient is already on anticoagulation for her A. fib
--- NOTE | 2020-02-05 12:18 | P.CNPUL ---
History of Present Illness Consult date: 02/05/20 Requesting physician: Corwin Lyn Reason for consult: hypoxemia Chief complaint: Hypoxemia, acute COVID 19 infection History of present illness: 64-year-old white female patient of Dr. Holley, who is well-known to our service from previous admissions for complications related to ESBL producing E. coli urinary tract infections with septicemia, has a known history of hypertension, [id number] diabetes mellitus, hyperlipidemia, morbid obesity, chronic atrial fibrillation on Eliquis, previous history of CVA with residual left-sided weakness, and gait dysfunction. Patient lives at home with her daughter and her , patient is bedbound, and requires 24-hour care which is provided by her daughter and her . She was brought into the hospital on 02/04/2020 were evaluation of low oxygen saturation and concern of COVID 19 infection. Patient's daughters are both hospital workers and tested positive for coronavirus. Otherwise patient states she feels well, she did not feel that she needed to be here, she has no complaints of shortness of breath, or any other specific complaints. Pulse ox was documented to be at 87% on room air on arrival, and patient also had low blood pressures of 80/48. Coronavirus PCR was positive. White blood cell count was 4.4, hemoglobin of 11.2, leukocyte count was 0.66, INR is 1.8, d-dimer was 0.63, sodium was 135, potassium is 4.4, chloride was 105, CO2 is 19, renal profile was within normal limits, plasma lactic acid was 1.2, ferritin level was within normal limits at 83.4, AST was 39, ALT and alk phos were within normal limits, LDH was 982, CRP was 32.7, proBNP was 4020, pro-calcitonin level was low at 0.11. Chest x-ray showed cardiomegaly with new small right pleural effusion, and patchy right mid and basilar acute atelectasis or infiltrate. EKG showed sinus bradycardia with evidence of an inferior infarct of undetermined age, no acute ST or T-wave abnormality. She was fluid resuscitated, she was given 500 mL bolus with improvement of her blood pressures. On today's exam she is awake and alert, oriented 3, she is resting comfortably in bed, she denies any specific complaints, no shortness of breath, she is on 2 L of oxygen the pulse ox 95%, blood pressures 110/59, patient has been afebrile. She states she is ready to go home today. Review of Systems All systems: negative Constitutional: Denies chills, Denies fever Eyes: denies blurred vision, denies pain Ears, nose, mouth and throat: Denies headache, Denies sore throat Cardiovascular: Denies chest pain, Denies shortness of breath Respiratory: Denies cough Gastrointestinal: Denies abdominal pain, Denies diarrhea, Denies nausea, Denies vomiting Genitourinary: Denies dysuria, Denies hematuria Musculoskeletal: Denies myalgias Integumentary: Denies pruritus, Denies rash Neurological: Denies numbness, Denies weakness Psychiatric: Denies anxiety, Denies depression Endocrine: Denies fatigue, Denies weight change Past Medical History Past Medical History: Atrial Fibrillation, CVA/TIA, Diabetes Mellitus, Hypertension Additional Past Medical History / Comment(s): cva x3- lt sided weakness, pt states she is unable to walk and is bedbound History of Any Multi-Drug Resistant Organisms: ESBL, MRSA Date of last positivie culture/infection: 10/28/19 ESBL 07/06/19 MRSA MDRO Source:: URINE Past Surgical History: Tubal Ligation Additional Past Surgical History / Comment(s): CAROTID ENDART TO CLEAN OUT NECK ARTERY LEFT; 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 Father Family Medical History: Diabetes Mellitus Medications and Allergies Home Medications Medication Instructions Recorded Confirmed Type metFORMIN HCL [Glucophage] 500 mg PO AC-BID 05/30/16 02/04/20 History Atorvastatin [Lipitor] 80 mg PO HS 03/22/19 02/04/20 History Losartan Potassium 100 mg PO DAILY 03/22/19 02/04/20 History Pantoprazole [Protonix] 40 mg PO DAILY 03/22/19 02/04/20 History Citalopram Hydrobromide [CeleXA] 40 mg PO HS 07/06/19 02/04/20 History Apixaban [Eliquis] 5 mg PO BID 10/09/19 02/04/20 History Metoprolol Tartrate [Lopressor] 25 mg PO DAILY 10/09/19 02/04/20 History Hydrocortisone Pr Cream 1 applic RECTAL BID #1 applic 10/31/19 02/04/20 Rx [Proctosol-Hc 2.5%] Acetaminophen Tab [Tylenol] 650 mg PO Q6HR PRN tab 11/12/19 02/04/20 Rx Hydrophilic Cream [Triad Cream] 1 applic TOPICAL DAILY #1 applic 11/12/19 02/04/20 Rx amLODIPine [Norvasc] 10 mg PO DAILY #30 tablet 11/12/19 02/04/20 Rx levETIRAcetam [Keppra] 1,000 mg PO Q12HR #60 tab 11/12/19 02/04/20 Rx Acetaminophen with Codeine 1 tab PO Q6H PRN 01/14/20 02/04/20 History [Tylenol w/codeine #3] Carvedilol [Coreg] 6.25 mg PO BID-W/MEALS 30 Days #60 01/20/20 02/04/20 Rx tab cloNIDine HCL [Catapres] 0.2 mg PO TID 30 Days #90 tab 01/20/20 02/04/20 Rx hydrALAZINE HCL [Apresoline] 100 mg PO TID 30 Days #90 tab 01/20/20 02/04/20 Rx Clopidogrel [Plavix] 75 mg PO DAILY 02/04/20 02/04/20 History Cyclobenzaprine HCl 10 mg PO DAILY 02/04/20 02/04/20 History Allergies Allergy/AdvReac Type Severity Reaction Status Date / Time No Known Allergies Allergy Verified 02/04/20 16:16 Physical Exam Vitals: Vital Signs Temp Pulse Pulse Resp BP BP Pulse Ox 02/05/20 11:18 98.1 F 56 L 16 108/52 96 02/05/20 07:00 97.9 F 52 L 16 117/74 99 02/05/20 04:00 49 L 19 02/05/20 03:07 97.8 F 48 L 18 115/54 98 02/04/20 23:54 49 L 19 02/04/20 23:10 98.1 F 48 L 18 111/65 95 02/04/20 21:40 97.5 F L 49 L 19 113/56 100 02/04/20 20:00 51 L 14 121/65 99 02/04/20 19:30 98.7 F 47 L 12 136/55 97 02/04/20 19:00 52 L 18 133/81 99 02/04/20 18:30 52 L 16 131/78 98 02/04/20 18:00 54 L 15 109/57 98 02/04/20 17:42 97.5 F L 49 L 18 113/56 100 02/04/20 17:30 50 L 18 110/59 95 02/04/20 17:00 53 L 18 94/79 97 02/04/20 16:30 51 L 18 110/64 94 L 02/04/20 16:09 97.8 F 73 22 80/48 87 L Intake and Output 02/04/20 02/05/20 02/05/20 22:59 06:59 14:59 Intake Total 100 Balance 100 Intake: Intake, IV Titration 100 Amount Magnesium Sulfate-D5w Pmx 100 1 gm In Dextrose/Water 1 100ml.bag @ 100 mls/hr IVPB Q1H [facility] Rx#: [id number] Other: Voiding Method Bedpan Bedpan # Bowel Movements 1 Weight 83.915 kg GENERAL EXAM: Alert, very pleasant, 64-year-old obese white female, currently resting comfortably in bed, on 2L of oxygen with a pulse ox of 96% comfortable in no apparent distress. HEAD: Normocephalic/atraumatic. EYES: Normal reaction of pupils, equal size. Conjunctiva pink, sclera white. NOSE: Clear with pink turbinates. THROAT: No erythema or exudates. NECK: No masses, no JVD, no thyroid enlargement, no adenopathy. CHEST: No chest wall deformity. Symmetrical expansion. LUNGS: Equal air entry with clear breath sounds CVS: Regular rate and rhythm, normal S1 and S2, no gallops, no murmurs, no rubs ABDOMEN: Soft, nontender. No hepatosplenomegaly, normal bowel sounds, no guarding or rigidity. EXTREMITIES: No clubbing, chronic lower extremity nonpitting edema, no cyanosis, 2+ pulses and upper and lower extremities. MUSCULOSKELETAL: Muscle strength and tone normal. SPINE: No scoliosis or deformity SKIN: No rashes CENTRAL NERVOUS SYSTEM: Alert and oriented -2. No focal deficits, tone is normal in all 4 extremities. Results - Laboratory Findings CBC and BMP: 02/04/20 16:50 02/04/20 16:50 PT/INR, D-dimer PT 17.4 sec (9.0-12.0) H 02/04/20 16:50 INR 1.8 (<1.2) H 02/04/20 16:50 D-Dimer 0.63 mg/L FEU (<0.60) H 02/04/20 16:50 Abnormal lab findings: Abnormal Labs 02/04/20 02/04/20 02/04/20 16:41 16:50 16:50 Hgb 11.2 L RDW 15.6 H Lymphocytes # (Manual) 0.66 L PT 17.4 H INR 1.8 H D-Dimer Sodium Carbon Dioxide Calcium Magnesium AST Lactate Dehydrogenase C-Reactive Protein Total Protein Albumin Procalcitonin Coronavirus (PCR) Detected A 02/04/20 02/04/20 02/04/20 16:50 16:50 16:50 Hgb RDW Lymphocytes # (Manual) PT INR D-Dimer 0.63 H Sodium 135 L Carbon Dioxide 19 L Calcium 8.0 L Magnesium 1.0 L AST 39 H Lactate Dehydrogenase 989 H C-Reactive Protein 32.7 H Total Protein 6.2 L Albumin 2.7 L Procalcitonin 0.11 H Coronavirus (PCR) - Diagnostic Findings Chest x-ray: report reviewed, image reviewed Additional studies: EKG reviewed Assessment and Plan Plan: Assessment: #1. Acute hypoxic respiratory failure related to acute Covid 19 infection #2. Hypotension, likely hypovolemic, responded well to fluids. Lactic acid was within normal limits #3. Elevated d-dimer of 0.63, LDH of 989, and CRP of 32.7, related to COVID 19 related infection #4. 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 coli requiring hospitalization #5. Morbid obesity #6. Diabetes mellitus type 2 #7. Hypertension #8. Hyperlipidemia #9. History of CVA 3 with left-sided weakness, and gait dysfunction #10. Carotid artery stenosis with prior carotid endarterectomy on the left #11. Paroxysmal atrial fibrillation on Eliquis #12. History of seizures on Keppra #13. History of ESBL E. coli bacteremia in October 2019 #14. History of MRSA infections #15. Gait dysfunction #16. Poor functional performance, patient resides at home and requires extensive assistance with ADLs Plan: Continue current medical treatment, blood pressure has improved, patient is on 2 L of oxygen which can probably be weaned off, no worsening dyspnea, she has bee n afebrile, vital signs are stable. Continue with oral anticoagulation. No acute events overnight, we will send a urinalysis to rule out possibility of urinary tract infection, with reflex to culture. No nausea vomiting or diarrhea. No shortness of breath. She is requesting to go home. We'll c ontinue to monitor her for another 24 hours, we will add azithromycin, no Plaquenil needed. We'll continue to follow her clinical course I performed a history & physical examination of the patient and discussed their management with my nurse practitioner, Perla Jensen. I reviewed the nurse practitioner's note and agree with the documented findings and plan of care. Lung sounds are positive for clear breath sounds. The findings and the impression was discussed with the patient. I attest to the documentation by the nurse practitioner. Time with Patient: Greater than 30
[2020-02-05] MEDS: MAGNESIUM SULFATE-D5W PMX 1 GM in DEXTROSE/WATER 1 100ML.BAG IVPB SCH ×4 (13:27→18:12)
[2020-02-05] MEDS ORDERED: hydrALAZINE HCL 50 MG TAB PO SCH (16:00)
[2020-02-05] MEDS: CITALOPRAM HYDROBROMIDE 20 MG TAB PO SCH (20:32)
[2020-02-05] MEDS: APIXABAN 5 MG TAB PO SCH (20:32)
[2020-02-05] MEDS: ATORVASTATIN 80 MG TAB PO SCH (20:32)
[2020-02-05] MEDS: METOPROLOL TARTRATE 25 MG TAB PO SCH (20:32)
[2020-02-05] MEDS: levETIRAcetam 500 MG TAB PO SCH (20:32)
[2020-02-05] MEDS: HYDROCORTISONE 2.5% RECTAL CREAM 30 GM TUBE RECTAL SCH (23:33)
[2020-02-05] MEDS: SODIUM CHLORIDE 0.9% 1,000 ML IV SCH (23:35)
[2020-02-06] MEDS: ACETAMINOPHEN TAB 325 MG TAB PO PRN (03:43)
[2020-02-06] MEDS: CLOPIDOGREL 75 MG TAB PO SCH (08:15)
[2020-02-06] MEDS: CYCLOBENZAPRINE 10 MG TAB PO SCH (08:15)
[2020-02-06] MEDS: APIXABAN 5 MG TAB PO SCH ×2 (08:15→21:19)
[2020-02-06] MEDS: PANTOPRAZOLE 40 MG TABLET PO SCH (08:15)
[2020-02-06] MEDS: AZITHROMYCIN 500 MG TAB PO SCH (08:16)
[2020-02-06] MEDS: levETIRAcetam 500 MG TAB PO SCH ×2 (08:16→21:18)
[2020-02-06] MEDS: METOPROLOL TARTRATE 25 MG TAB PO SCH (08:18)
[2020-02-06] MEDS: HYDROCORTISONE 2.5% RECTAL CREAM 30 GM TUBE RECTAL SCH ×2 (08:18→21:19)
[2020-02-06] MEDS: HYDROPHILIC CREAM 180 GM TUBE TOPICAL SCH (08:18)
[2020-02-06 08:42] LABS: HCT 30.4 % (34.0-46.0); Hypochromasia Marked; MCH 26.6 pg (25.0-35.0); MCHC 31.1 g/dL (31.0-37.0); MCV 85.5 fL (80.0-100.0); Mean Platelet Volume 8.7; Platelet Count 142 k/uL (150-450); RBC 3.55 m/uL (3.80-5.40); RDW 15.8 % (11.5-15.5); WBC 2.7 k/uL (3.8-10.6)
[2020-02-06 08:46] LABS: HGB 9.5 gm/dL (11.4-16.0)
[2020-02-06 08:56] LABS: African American GFR (CKD) >90 (>60 ml/min/1.73 sqM); Anion Gap 9 mmol/L; Blood Urea Nitrogen 11 mg/dL (7-17); Calcium 7.8 mg/dL (8.4-10.2); Carbon Dioxide 22 mmol/L (22-30); Chloride 105 mmol/L (98-107); Glucose 76 mg/dL (74-99); Magnesium 1.9 mg/dL (1.6-2.3); Non-African American GFR(CKD) 83 (>60 ml/min/1.73 sqM); Potassium 2.9 mmol/L (3.5-5.1); Sodium 136 mmol/L (137-145)
[2020-02-06] MEDS ORDERED: amLODIPine 10 MG TAB PO SCH (09:00)
[2020-02-06] MEDS ORDERED: LOSARTAN 50 MG TAB PO SCH (09:00)
[2020-02-06] MEDS ORDERED: Potassium Replacement Protocol 1 EACH MISC MISCELLANE PRN ×2 (11:27→13:30)
[2020-02-06] MEDS ORDERED: ALBUTEROL HFA INHALER INHALATION PRN (11:31)
--- NOTE | 2020-02-06 11:39 | P.PN ---
Subjective Progress Note Date: 02/06/20 Principal diagnosis: Acute on chronic hypoxic respiratory failure, acute COVID 19 infection 64-year-old white female patient of Dr. Holley, who is well-known to our service from previous admissions for complications related to ESBL producing E. coli urinary tract infections with septicemia, has a known history of hypertension, [id number] diabetes mellitus, hyperlipidemia, morbid obesity, chronic atrial fibrillation on Eliquis, previous history of CVA with residual left-sided weakness, and gait dysfunction. Patient lives at home with her daughter and her , patient is bedbound, and requires 24-hour care which is provided by her daughter and her . She was brought into the hospital on 02/04/2020 were evaluation of low oxygen saturation and concern of COVID 19 infection. Patient's daughters are both hospital workers and tested positive for coron avirus. Otherwise patient states she feels well, she did not feel that she needed to be here, she has no complaints of shortness of breath, or any other specific complaints. Pulse ox was documented to be at 87% on room air on arrival, and patient also had low blood pressures of 80/48. Coronavirus PCR was positive. White blood cell count was 4.4, hemoglobin of 11.2, leukocyte count was 0.66, INR is 1.8, d-dimer was 0.63, sodium was 135, potassium is 4.4, chloride was 105, CO2 is 19, renal profile was within normal limits, plasma lactic acid was 1.2, ferritin level was within normal limits at 83.4, AST was 39, ALT and alk phos were within normal limits, LDH was 982, CRP was 32.7, proBNP was 4020, pro-calcitonin level was low at 0.11. Chest x-ray showed cardiomegaly with new small right pleural effusion, and patchy right mid and basilar acute atelectasis or infiltrate. EKG showed sinus bradycardia with evidence of an inferior infarct of undetermined age, no acute ST or T-wave abnormality. She was fluid resuscitated, she was given 500 mL bolus with improvement of her blood pressures. On today's exam she is awake and alert, oriented 3, she is resting comfortably in bed, she denies any specific complaints, no shortness of breath, she is on 2 L of oxygen the pulse ox 95%, blood pressures 110/59, patient has been afebrile. She states she is ready to go home today. On 02/06/2020 patient seen in follow-up on general medical floor, she is resting comfortably in bed, in no acute distress, she is currently on 3 L of oxygen the pulse ox of 94%, hemodynamically she is stable, she did have a fever spike with a temp of 101.0F early this morning at 3 AM. Today's labs have been reviewed showing leukopenia, with a white blood cell count of 2.7, hemoglobin of 9.5, platelet count is 142, sodium was 136, potassium is 2.9, the rest of the electrolytes and renal profile were within normal limits. No follow-up LDH or CRP or ferritin today, pro-calcitonin was 0.11, patient remains on azithromycin for empiric antibiotic coverage, she denies any shortness of breath, lung sounds are clear diminished at the bases, mentation seems to be appropriate. Objective - Vital Signs Vital signs: Vital Signs Temp 98.3 F 02/06/20 07:00 Pulse 55 L 02/06/20 07:00 Resp 18 02/06/20 07:00 BP 108/56 02/06/20 07:00 Pulse Ox 94 L 02/06/20 07:00 Intake & Output 02/05/20 02/06/20 02/06/20 18:59 06:59 18:59 Output Total 275 Balance -275 Output: Urine 275 Other: Voiding Method Bedpan Diaper Diaper # Voids 2 1 # Bowel Movements 1 - Exam GENERAL EXAM: Alert, very pleasant, 64-year-old obese white female, currently resting comfortably in bed, on 2L of oxygen with a pulse ox of 94% comfortable in no apparent distress. HEAD: Normocephalic/atraumatic. EYES: Normal reaction of pupils, equal size. Conjunctiva pink, sclera white. NOSE: Clear with pink turbinates. THROAT: No erythema or exudates. NECK: No masses, no JVD, no thyroid enlargement, no adenopathy. CHEST: No chest wall deformity. Symmetrical expansion. LUNGS: Equal air entry with clear breath sounds CVS: Regular rate and rhythm, normal S1 and S2, no gallops, no murmurs, no rubs ABDOMEN: Soft, nontender. No hepatosplenomegaly, normal bowel sounds, no guarding or rigidity. EXTREMITIES: No clubbing, chronic lower extremity nonpitting edema, no cyanosis, 2+ pulses and upper and lower extremities. MUSCULOSKELETAL: Muscle strength and tone normal. SPINE: No scoliosis or deformity SKIN: No rashes CENTRAL NERVOUS SYSTEM: Alert and oriented -2. No focal deficits, tone is normal in all 4 extremities. - Labs CBC & Chem 7: 02/06/20 07:55 02/06/20 07:55 Labs: Abnormal Lab Results - Last 24 Hours (Table) 02/06/20 02/06/20 Range/Units 07:55 07:55 WBC 2.7 L (3.8-10.6) k/uL RBC 3.55 L (3.80-5.40) m/uL Hgb 9.5 L D (11.4-16.0) gm/dL Hct 30.4 L (34.0-46.0) % RDW 15.8 H (11.5-15.5) % Plt Count 142 L (150-450) k/uL Sodium 136 L (137-145) mmol/L Potassium 2.9 L (3.5-5.1) mmol/L Calcium 7.8 L (8.4-10.2) mg/dL Microbiology - Last 24 Hours (Table) 02/04/20 16:50 Blood Culture - Preliminary Blood No Growth after 24 hours Assessment and Plan Plan: Assessment: #1. Acute hypoxic respiratory failure related to acute Covid 19 infection #2. Hypotension, likely hypovolemic, responded well to fluids. Lactic acid was within normal limits #3. Elevated d-dimer of 0.63, LDH of 989, and CRP of 32.7, related to COVID 19 related infection #4. 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 coli requiring hospitalization #5. Morbid obesity #6. Diabetes mellitus type 2 #7. Hypertension #8. Hyperlipidemia #9. History of CVA 3 with left-sided weakness, and gait dysfunction #10. Carotid artery stenosis with prior carotid endarterectomy on the left #11. Paroxysmal atrial fibrillation on Eliquis #12. History of seizures on Keppra #13. History of ESBL E. coli bacteremia in October 2019 #14. History of MRSA infections #15. Gait dysfunction #16. Poor functional performance, patient resides at home and requires extensive assistance with ADLs #17. Leukopenia and fever, rule out sepsis. Plan: Obtain urinalysis with reflex to culture patient did have a fever spike early this morning and she is leukopenic on today's labs. Continue with current antibiotics, continue current medical treatment, patient denies any shortness of breath, denies any cough or congestion. Hemodynamically is stable. Maintain aspiration precautions, monitor mentation, and fever pattern. Follow-up LDH CRP and d-dimer in the morning I performed a history & physical examination of the patient and discussed their management with my nurse practitioner, Perla Jensen. I reviewed the nurse practitioner's note and agree with the documented findings and plan of care. Lung sounds are positive for clear breath sounds. The findings and the impression was discussed with the patient. I attest to the documentation by the nurse practitioner. Time with Patient: Less than 30
--- NOTE | 2020-02-06 12:02 | P.PN ---
Subjective 64-year-old pleasant female is admitted the for acute respiratory failure secondary to Covid 19 infection. Patient is presently on 3 L saturating only 94% because of which I'll hold her discharged today. Patient doesn't have any UTI symptoms but per neurology is recommending [facility] because of which a year was obtained. But her fever is secondary to Covid 19. Patient is mildly bradycardic because of which are cutting down the dose of metoprolol patient losartan dose will be cut down as well as patient's blood pressure is low normal. She is bit hypokalemic secondary to IV fluids and potassium will be replaced Constitutional: Denied any fatigue denied any fever. Cardio vascular: denied any chest pain, palpitations Gastrointestinal denied any nausea vomiting Pulmonary: Denied any shortness of breath cough Neurologic denied any new focal deficits All inpatient medications were reviewed and appropriate changes in these medications as dictated in the interval history and assessment and plan. Objective - Vital Signs Vital signs: Vital Signs Temp 98.3 F 02/06/20 07:00 Pulse 55 L 02/06/20 07:00 Resp 18 02/06/20 07:00 BP 108/56 02/06/20 07:00 Pulse Ox 94 L 02/06/20 07:00 Intake & Output 02/05/20 02/06/20 02/06/20 18:59 06:59 18:59 Output Total 275 Balance -275 Output: Urine 275 Other: Voiding Method Bedpan Diaper Diaper # Voids 2 1 # Bowel Movements 1 - Exam PHYSICAL EXAMINATION: GENERAL: The patient is alert and oriented x3, not in any acute distress. Well developed, well nourished. HEENT: Pupils are round and equally reacting to light. EOMI. No scleral icterus. No conjunctival pallor. Normocephalic, atraumatic. No pharyngeal erythema. No thyromegaly. CARDIOVASCULAR: S1 and S2 present. No murmurs, rubs, or gallops. PULMONARY: Mild expiratory wheezing on exam ABDOMEN: Soft, nontender, nondistended, normoactive bowel sounds. No palpable organomegaly. MUSCULOSKELETAL: No joint swelling or deformity. EXTREMITIES: No cyanosis, clubbing, or pedal edema. NEUROLOGICAL: Gross neurological examination did not reveal any focal deficits. SKIN: No rashes. Note: Because of COVID 19 isolation, some of the history and physical exam f indings or indirect and obtained from nursing staff, and other physician examinations to avoid unnecessary contact with the patient. - Labs CBC & Chem 7: 02/06/20 07:55 02/06/20 07:55 Labs: Abnormal Lab Results - Last 24 Hours (Table) 02/06/20 02/06/20 Range/Units 07:55 07:55 WBC 2.7 L (3.8-10.6) k/uL RBC 3.55 L (3.80-5.40) m/uL Hgb 9.5 L D (11.4-16.0) gm/dL Hct 30.4 L (34.0-46.0) % RDW 15.8 H (11.5-15.5) % Plt Count 142 L (150-450) k/uL Sodium 136 L (137-145) mmol/L Potassium 2.9 L (3.5-5.1) mmol/L Calcium 7.8 L (8.4-10.2) mg/dL Microbiology - Last 24 Hours (Table) 02/04/20 16:50 Blood Culture - Preliminary Blood No Growth after 24 hours Assessment and Plan Plan: 1 acute hypoxic respiratory failure: Secondary to COVID 19, continue the azithromycin supportive care agent appears to have some wheezing because of which patient will be started on inhalational treatments inhaled steroids. Patient was pretty status is bit worse compared to yesterday because of which I'll hold her discharged today. Do not believe patient has urinary tract infection fevers are secondary to Covid 19 as patient doesn't have any UTI symptoms even a few is abnormal it's considered as asymptomatic bacteriuria and will not need antibiotics. -Hypomagnesemia was replaced -Hypokalemia potassium was replaced -Atrial fibrillation presently bradycardic with all the rate control medications were discontinued except for metoprolol which will be started later today if her heart rate improves. Patient is on Eliquis which will continue -COPD with minimal exacerbation -History of seizures for which patient on Keppra which will be continued - type 2 diabetes mellitus hold off on metformin patient was started on sliding scale insulin -Hypertension is bit hypotensive cutting down the dose of metoprolol and losartan -DVT prophylaxis patient is already on anticoagulation for her A. fib
[2020-02-06 12:29] LABS: Appearance,Urine Cloudy (Clear); Bacteria,Urine Many /hpf; Bilirubin,Urine Negative (Negative); Blood,Urine Negative (Negative); Budding Yeast,Urine Many /hpf; Color,Urine Yellow; Glucose,Urine (UA) Negative (Negative); Hyphae Yeast, Urine Rare /hpf; Ketones,Urine Negative (Negative); Leukocyte Esterase,Urine Large (Negative); Mucus,Urine Rare /hpf; Nitrite,Urine Positive (Negative); PH, Urine 6.5 (5.0-8.0); Protein,Urine Trace (Negative); RBC,Urine 19 /hpf (0-5); Squamous Epithelial Cell,Urine 1 /hpf (0-4); Urobilinogen,Urine <2.0 mg/dL (<2.0); WBC,Urine 38 /hpf (0-5)
[2020-02-06] MEDS: POTASSIUM CHLORIDE 10 MEQ in WATER FOR INJECTION 1 100ML.BAG IVPB SCH (13:36)
[2020-02-06] MEDS: POTASSIUM CHLORIDE ER 20 MEQ TAB.ER PO SCH ×3 (13:41→18:12)
[2020-02-06] MEDS: SODIUM CHLORIDE 0.9% 1,000 ML IV SCH (17:28)
[2020-02-06] MEDS: FLUTICASONE 110 MCG INHALER INHALATION SCH (19:26)
[2020-02-06] MEDS: CITALOPRAM HYDROBROMIDE 20 MG TAB PO SCH (21:19)
[2020-02-06] MEDS: ATORVASTATIN 80 MG TAB PO SCH (21:19)
[2020-02-06] MEDS: METOPROLOL TARTRATE 12.5 MG TAB PO SCH (21:19)
[2020-02-07] MEDS: ACETAMINOPHEN TAB 325 MG TAB PO PRN (00:52)
[2020-02-07] MEDS: FLUTICASONE 110 MCG INHALER INHALATION SCH ×2 (08:11→20:09)
[2020-02-07 09:03] LABS: HCT 31.1 % (34.0-46.0); HGB 9.8 gm/dL (11.4-16.0); Hypochromasia Marked; MCH 26.6 pg (25.0-35.0); MCHC 31.4 g/dL (31.0-37.0); MCV 84.8 fL (80.0-100.0); Mean Platelet Volume 8.4; Platelet Count 135 k/uL (150-450); RBC 3.67 m/uL (3.80-5.40); RDW 15.8 % (11.5-15.5); WBC 2.8 k/uL (3.8-10.6)
[2020-02-07 09:14] LABS: Calcium 8.2 mg/dL (8.4-10.2); Potassium 3.6 mmol/L (3.5-5.1)
[2020-02-07] MEDS: LOSARTAN 50 MG TAB PO SCH (09:37)
[2020-02-07] MEDS: PANTOPRAZOLE 40 MG TABLET PO SCH (09:37)
[2020-02-07] MEDS: CLOPIDOGREL 75 MG TAB PO SCH (09:37)
[2020-02-07] MEDS: APIXABAN 5 MG TAB PO SCH ×2 (09:37→21:02)
[2020-02-07] MEDS: CYCLOBENZAPRINE 10 MG TAB PO SCH (09:37)
[2020-02-07] MEDS: levETIRAcetam 500 MG TAB PO SCH ×2 (09:38→21:02)
[2020-02-07] MEDS: AZITHROMYCIN 500 MG TAB PO SCH (09:38)
[2020-02-07] MEDS: HYDROCORTISONE 2.5% RECTAL CREAM 30 GM TUBE RECTAL SCH ×2 (09:39→21:03)
[2020-02-07] MEDS: METOPROLOL TARTRATE 12.5 MG TAB PO SCH ×2 (09:40→21:02)
[2020-02-07] MEDS: HYDROPHILIC CREAM 180 GM TUBE TOPICAL SCH (09:45)
[2020-02-07] MEDS ORDERED: POTASSIUM CHLORIDE ER 20 MEQ TAB.ER PO SCH (10:00)
[2020-02-07 10:04] LABS: C Reactive Protein 65.4 mg/L (<10.0)
--- NOTE | 2020-02-07 11:08 | XR ---
EXAMINATION TYPE: XR chest 1V portable DATE OF EXAM: 02/07/2020 COMPARISON: 02/04/2020 HISTORY: Shortness of breath TECHNIQUE: Single frontal view of the chest is obtained. FINDINGS: Reticular opacities are seen at the lung bases with sparing in the lung apices. These are worsened from the prior. Enlarged cardiac mediastinal silhouette. Very trace right pleural effusion b lunts the costophrenic angle. No sizable pneumothorax. Patient is again rotated shifting the mediasti num to the right. IMPRESSION: Worsening reticular bibasilar airspace disease favored to represent multifocal pneumonia .
[2020-02-07] MEDS: POTASSIUM CHLORIDE 10 MEQ in WATER FOR INJECTION 1 100ML.BAG IVPB SCH (11:17)
--- NOTE | 2020-02-07 12:09 | P.PN ---
Subjective 64-year-old pleasant female is admitted the for acute respiratory failure secondary to Covid 19 infection. Patient is presently on 3 L saturating only 94% because of which I'll hold her discharged today. Patient doesn't have any UTI symptoms but per neurology is recommending [facility] because of which a year was obtained. But her fever is secondary to Covid 19. Patient is mildly bradycardic because of which are cutting down the dose of metoprolol patient losartan dose will be cut down as well as patient's blood pressure is low normal. She is bit hypokalemic secondary to IV fluids and potassium will be replaced. 02/07/2020 Patient is on 3 L of oxygen which she cut down to 2 patient wanted to go home no matter or if you're able to wean off on's and patient will be discharged today. Patient was started on Rocephin by pulmonology because of abnormal uterine although I believe his chest and chronic bacteriuria with left arm pain consultation from infectious disease in their opinion regarding abnormal urine and other antibiotics. Patient is on azithromycin for Covid 19 infection Constitutional: Denied any fatigue denied any fever. Cardio vascular: denied any chest pain, palpitations Gastrointestinal denied any nausea vomiting Pulmonary: Denied any shortness of breath cough Neurologic denied any new focal deficits All inpatient medications were reviewed and appropriate changes in these medications as dictated in the interval history and assessment and plan. Objective - Vital Signs Vital signs: Vital Signs Temp 98.2 F 02/07/20 07:00 Pulse 66 02/07/20 07:00 Resp 18 02/07/20 07:00 BP 170/88 02/07/20 07:00 Pulse Ox 95 02/07/20 09:59 Intake & Output 02/06/20 02/07/20 02/07/20 18:59 06:59 18:59 Intake Total 50 Balance 50 Intake: Oral 50 Other: Voiding Method Diaper Diaper Diaper # Voids 1 - Exam PHYSICAL EXAMINATION: GENERAL: The patient is alert and oriented x3, not in any acute distress. Well developed, well nourished. HEENT: Pupils are round and equally reacting to light. EOMI. No scleral icterus. No conjunctival pallor. Normocephalic, atraumatic. No pharyngeal erythema. No thyromegaly. CARDIOVASCULAR: S1 and S2 present. No murmurs, rubs, or gallops. PULMONARY: No wheezing today ABDOMEN: Soft, nontender, nondistended, normoactive bowel sounds. No palpable organomegaly. MUSCULOSKELETAL: No joint swelling or deformity. EXTREMITIES: No cyanosis, clubbing, or pedal edema. NEUROLOGICAL: Gross neurological examination did not reveal any focal deficits. SKIN: No rashes. Note: Because of COVID 19 isolation, some of the history and physical exam findings or indirect and obtained from nursing staff, and other physician e xaminations to avoid unnecessary contact with the patient. - Labs CBC & Chem 7: 02/07/20 08:20 02/07/20 08:20 Labs: Abnormal Lab Results - Last 24 Hours (Table) 02/06/20 02/06/20 02/07/20 Range/Units 10:30 12:32 08:20 WBC 2.8 L (3.8-10.6) k/uL RBC 3.67 L (3.80-5.40) m/uL Hgb 9.8 L (11.4-16.0) gm/dL Hct 31.1 L (34.0-46.0) % RDW 15.8 H (11.5-15.5) % Plt Count 135 L (150-450) k/uL Potassium 2.9 L (3.5-5.1) mmol/L Calcium (8.4-10.2) mg/dL Lactate Dehydrogenase (313-618) U/L C-Reactive Protein (<10.0) mg/L Urine Appearance Cloudy H (Clear) Urine Protein Trace H (Negative) Urine Nitrite Positive H (Negative) Ur Leukocyte Esterase Large H (Negative) Urine RBC 19 H (0-5) /hpf Urine WBC 38 H (0-5) /hpf Urine Bacteria Many H (None) /hpf Urine Mucus Rare H (None) /hpf Urine Yeast (Budding) Many H (None) /hpf 02/07/20 Range/Units 08:20 WBC (3.8-10.6) k/uL RBC (3.80-5.40) m/uL Hgb (11.4-16.0) gm/dL Hct (34.0-46.0) % RDW (11.5-15.5) % Plt Count (150-450) k/uL Potassium (3.5-5.1) mmol/L Calcium 8.2 L (8.4-10.2) mg/dL Lactate Dehydrogenase 660 H (313-618) U/L C-Reactive Protein 65.4 H (<10.0) mg/L Urine Appearance (Clear) Urine Protein (Negative) Urine Nitrite (Negative) Ur Leukocyte Esterase (Negative) Urine RBC (0-5) /hpf Urine WBC (0-5) /hpf Urine Bacteria (None) /hpf Urine Mucus (None) /hpf Urine Yeast (Budding) (None) /hpf Microbiology - Last 24 Hours (Table) 02/06/20 10:30 Urine Culture - Preliminary Urine,Clean Catch 02/04/20 16:50 Blood Culture - Preliminary Blood No Growth after 48 hours Assessment and Plan Plan: 1 acute hypoxic respiratory failure: Secondary to COVID 19, continue the azithromycin supportive care agent appears to have some wheezing because of which patient will be started on inhalational treatments inhaled steroids. , Patient is bit better today no wheezing today we're able to get her for observation be discharged today -Asymptomatic bacteriuria -Hypomagnesemia was replaced -Hypokalemia potassium was replaced -Atrial fibrillation presently bradycardic with all the rate control medications were discontinued except for metoprolol which will be started later today if her heart rate improves. Patient is on Eliquis which will continue -COPD with minimal exacerbation -History of seizures for which patient on Keppra which will be continued - type 2 diabetes mellitus hold off on metformin patient was started on sliding scale insulin -Hypertension is bit hypotensive cutting down the dose of metoprolol and losartan -DVT prophylaxis patient is already on anticoagulation for her A. fib
--- NOTE | 2020-02-07 13:01 | P.PN ---
Subjective Progress Note Date: 02/07/20 Principal diagnosis: Acute on chronic hypoxic respiratory failure, acute CoVID 19 infection 64-year-old white female patient of Dr. Holley, who is well-known to our service from previous admissions for complications related to ESBL producing E. coli urinary tract infections with septicemia, has a known history of hypertension, [id number] diabetes mellitus, hyperlipidemia, morbid obesity, chronic atrial fibrillation on Eliquis, previous history of CVA with residual left-sided weakness, and gait dysfunction. Patient lives at home with her daughter and her , patient is bedbound, and requires 24-hour care which is provided by her daughter and her . She was brought into the hospital on 02/04/2020 were evaluation of low oxygen saturation and concern of COVID 19 infection. Patient's daughters are both hospital workers and tested positive for coron avirus. Otherwise patient states she feels well, she did not feel that she needed to be here, she has no complaints of shortness of breath, or any other specific complaints. Pulse ox was documented to be at 87% on room air on arrival, and patient also had low blood pressures of 80/48. Coronavirus PCR was positive. White blood cell count was 4.4, hemoglobin of 11.2, leukocyte count was 0.66, INR is 1.8, d-dimer was 0.63, sodium was 135, potassium is 4.4, chloride was 105, CO2 is 19, renal profile was within normal limits, plasma lactic acid was 1.2, ferritin level was within normal limits at 83.4, AST was 39, ALT and alk phos were within normal limits, LDH was 982, CRP was 32.7, proBNP was 4020, pro-calcitonin level was low at 0.11. Chest x-ray showed cardiomegaly with new small right pleural effusion, and patchy right mid and basilar acute atelectasis or infiltrate. EKG showed sinus bradycardia with evidence of an inferior infarct of undetermined age, no acute ST or T-wave abnormality. She was fluid resuscitated, she was given 500 mL bolus with improvement of her blood pressures. On today's exam she is awake and alert, oriented 3, she is resting comfortably in bed, she denies any specific complaints, no shortness of breath, she is on 2 L of oxygen the pulse ox 95%, blood pressures 110/59, patient has been afebrile. She states she is ready to go home today. On 02/06/2020 patient seen in follow-up on general medical floor, she is resting comfortably in bed, in no acute distress, she is currently on 3 L of oxygen the pulse ox of 94%, hemodynamically she is stable, she did have a fever spike with a temp of 101.0F early this morning at 3 AM. Today's labs have been reviewed showing leukopenia, with a white blood cell count of 2.7, hemoglobin of 9.5, platelet count is 142, sodium was 136, potassium is 2.9, the rest of the electrolytes and renal profile were within normal limits. No follow-up LDH or CRP or ferritin today, pro-calcitonin was 0.11, patient remains on azithromycin for empiric antibiotic coverage, she denies any shortness of breath, lung sounds are clear diminished at the bases, mentation seems to be appropriate. The patient is seen today 02/07/2020 in follow-up on the regular medical floor. She is currently awake and alert in no acute distress. She is maintaining O2 saturations in the low 90s on 2 L/m per nasal cannula. She did desaturate to 85% on room air. Chest x-ray does reveal worsening reticular by basilar airspace disease most likely multifocal pneumonia. Urine culture pending. Blood culture pending. Currently on azithromycin. He remains on bronchodilators. Anticoagulated with Eliquis. White count 2.8. Hemoglobin 9.8. Platelets 135. D-dimer 0.58. Sodium 138. Potassium 3.6. Creatinine 0.92. LDH 660. C-reactive protein 65. Objective - Vital Signs Vital signs: Vital Signs Temp 98.2 F 02/07/20 07:00 Pulse 66 02/07/20 07:00 Resp 18 02/07/20 07:00 BP 170/88 02/07/20 07:00 Pulse Ox 93 L 02/07/20 12:15 Intake & Output 02/06/20 02/07/20 02/07/20 18:59 06:59 18:59 Intake Total 50 Balance 50 Intake: Oral 50 Other: Voiding Method Diaper Diaper Diaper # Voids 1 - Exam GENERAL EXAM: Alert, very pleasant, 64-year-old obese female patient, currently resting comfortably in bed, on 2L of oxygen with a pulse ox of 93% comfortable in no apparent distress. HEAD: Normocephalic/atraumatic. EYES: Normal reaction of pupils, equal size. Conjunctiva pink, sclera white. NOSE: Clear with pink turbinates. THROAT: No erythema or exudates. NECK: No masses, no JVD, no thyroid enlargement, no adenopathy. CHEST: No chest wall deformity. Symmetrical expansion. LUNGS: Equal air entry with bilateral scattered rhonchi. CVS: Regular rate and rhythm, normal S1 and S2, no gallops, no murmurs, no rubs ABDOMEN: Soft, nontender. No hepatosplenomegaly, normal bowel sounds, no guarding or rigidity. EXTREMITIES: No clubbing, chronic lower extremity nonpitting edema, no cyanosis, 2+ pulses and upper and lower extremities. MUSCULOSKELETAL: Muscle strength and tone normal. SPINE: No scoliosis or deformity SKIN: No rashes CENTRAL NERVOUS SYSTEM: Alert and oriented -2. No focal deficits, tone is normal in all 4 extremities. - Labs CBC & Chem 7: 02/07/20 08:20 02/07/20 08:20 Labs: Abnormal Lab Results - Last 24 Hours (Table) 02/06/20 02/07/20 02/07/20 Range/Units 12:32 08:20 08:20 WBC 2.8 L (3.8-10.6) k/uL RBC 3.67 L (3.80-5.40) m/uL Hgb 9.8 L (11.4-16.0) gm/dL Hct 31.1 L (34.0-46.0) % RDW 15.8 H (11.5-15.5) % Plt Count 135 L (150-450) k/uL Potassium 2.9 L (3.5-5.1) mmol/L Calcium 8.2 L (8.4-10.2) mg/dL Lactate Dehydrogenase 660 H (313-618) U/L C-Reactive Protein 65.4 H (<10.0) mg/L Microbiology - Last 24 Hours (Table) 02/06/20 10:30 Urine Culture - Preliminary Urine,Clean Catch 02/04/20 16:50 Blood Culture - Preliminary Blood No Growth after 48 hours Assessment and Plan Assessment: #1. Acute hypoxic respiratory failure related to acute Covid 19 infection #2. Hypotension, likely hypovolemic, responded well to fluids. Lactic acid was within normal limits #3. Elevated d-dimer of 0.63, LDH of 989, and CRP of 32.7, related to COVID 19 related infection #4. 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 coli requiring hospitalization #5. Morbid obesity #6. Diabetes mellitus type 2 #7. Hypertension #8. Hyperlipidemia #9. History of CVA 3 with left-sided weakness, and gait dysfunction #10. Carotid artery stenosis with prior carotid endarterectomy on the left #11. Paroxysmal atrial fibrillation on Eliquis #12. History of seizures on Keppra #13. History of ESBL E. coli bacteremia in October 2019 #14. History of MRSA infections #15. Gait dysfunction #16. Poor functional performance, patient resides at home and requires extens bertin assistance with ADLs #17. Leukopenia and fever, rule out sepsis. Plan: The patient was seen and evaluated by Dr. Arellano Chest x-ray and labs reviewed Added ceftriaxone, continue azithromycin, continue bronchodilators Urine and blood cultures pending We'll continue to follow make further recommendations based on her clinical status I, the cosigning physician, performed a history & physical examination of the patient. Lungs sounds with bilateral scattered rhonchi. Maintaining good O2 saturations in the 90s on 2 L/m per nasal cannula. I discussed the assessment and plan of care with my nurse practitioner, Annette Dugan. I attest to the above note as dictated by her.
[2020-02-07] MEDS: methylPREDNISolone SOD SUCCI 40 MG/ML 1 ML VIAL IV SCH ×2 (15:23→21:13)
[2020-02-07] MEDS: ZINC SULFATE 220 MG CAP PO SCH (17:24)
[2020-02-07] MEDS: HYDROXYCHLOROQUINE SULFATE 200 MG TAB PO SCH ×2 (17:24→21:02)
[2020-02-07] MEDS: CITALOPRAM HYDROBROMIDE 20 MG TAB PO SCH (21:02)
[2020-02-07] MEDS: ATORVASTATIN 80 MG TAB PO SCH (21:02)
--- NOTE | 2020-02-07 22:09 | P.CONS ---
History of Present Illness - Reason for Consult Consult date: 02/07/20 covid 19 infection , sacral wound Requesting physician: Corwin Lyn - Chief Complaint low O2 sats x 1 day - History of Present Illness Patient is a 64-year female presenting to the ER at [facility] on 01/27/2020 after the patient was noticed to be hypoxic the patient needs oxygen at home 2 4 patient daughter had tested positive for COVID-19 or dered by healthcare worker patient on arrival to the ER was feeling fine and did not want to be here patient denies any complaint to the ER physician on arrival to the ER patient was afebrile however the patient did spike a fever of 101 F yesterday morning, patient on admission did have a normal white count however she did have lymphopenia also have elevated CRP LDH positive UA in the COVID-19 test was positive patient initial chest x-ray shows cardiomegaly with new small right pleural effusion patchy right mid and basal infiltrate the patient did have a chest x-ray completed this morning which is now showing worsening reticular bibasilar airspace disease favored to represent multifocal pneumonia patient is currently being treated with Rocephin and Zithromax I was asked to see the patient for recommendations on her worsening pneumonia patient continued to deny any symptoms and is asking for if she can go home denies having any chest pain she did have some shortness of breath or cough but wanted me but no sputum production no vomiting or diarrhea has been reported by nursing staff james mcqueen also have a 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 however the patient unable to me how long she has this wound she has no symptoms referable to the wound at this point Review of Systems Positive point has been mentioned in HPI rest of the systems are negative Past Medical History Past Medical History: Atrial Fibrillation, CVA/TIA, Diabetes Mellitus, Hypertension Additional Past Medical History / Comment(s): cva x3- lt sided weakness, pt states she is unable to walk and is bedbound History of Any Multi-Drug Resistant Organisms: ESBL, MRSA Year Discovered:: 10/28/19 ESBL 07/06/19 MRSA MDRO Source:: URINE Past Surgical History: Tubal Ligation Additional Past Surgical History / Comment(s): CAROTID ENDART TO CLEAN OUT NECK ARTERY LEFT; hall monitor chip placed Past Anesthesia/Blood Transfusion Reactions: No Reported Reaction Past Psychological History: Depression Smoking Status: Former smoker Past Alcohol Use History: None Reported Past Drug Use History: None Reported - Past Family History Brother(s) Family Medical History: No Reported History Sister(s) Family Medical History: Diabetes Mellitus Additional Family Medical History / Comment(s): RENAL FAILURE, ABCESSES Mother Additional Family Medical History / Comment(s): Brain Aneurism. Father Family Medical History: Diabetes Mellitus Medications and Allergies Home Medications Medication Instructions Recorded Confirmed Type metFORMIN HCL [Glucophage] 500 mg PO AC-BID 05/30/16 02/04/20 History Atorvastatin [Lipitor] 80 mg PO HS 03/22/19 02/04/20 History Losartan Potassium 100 mg PO DAILY 03/22/19 02/04/20 History Pantoprazole [Protonix] 40 mg PO DAILY 03/22/19 02/04/20 History Citalopram Hydrobromide [CeleXA] 40 mg PO HS 07/06/19 02/04/20 History Apixaban [Eliquis] 5 mg PO BID 10/09/19 02/04/20 History Metoprolol Tartrate [Lopressor] 25 mg PO DAILY 10/09/19 02/04/20 History Hydrocortisone Pr Cream 1 applic RECTAL BID #1 applic 10/31/19 02/04/20 Rx [Proctosol-Hc 2.5%] Acetaminophen Tab [Tylenol] 650 mg PO Q6HR PRN tab 11/12/19 02/04/20 Rx Hydrophilic Cream [Triad Cream] 1 applic TOPICAL DAILY #1 applic 11/12/1902/03 Rx amLODIPine [Norvasc] 10 mg PO DAILY #30 tablet 11/12/19 02/04/20 Rx levETIRAcetam [Keppra] 1,000 mg PO Q12HR #60 tab 11/12/19 02/04/20 Rx Acetaminophen with Codeine 1 tab PO Q6H PRN 01/14/20 02/04/20 History [Tylenol w/codeine #3] Carvedilol [Coreg] 6.25 mg PO BID-W/MEALS 30 Days #60 01/20/20 02/04/20 Rx tab cloNIDine HCL [Catapres] 0.2 mg PO TID 30 Days #90 tab 01/20/20 02/04/20 Rx hydrALAZINE HCL [Apresoline] 100 mg PO TID 30 Days #90 tab 01/20/20 02/04/20 Rx Clopidogrel [Plavix] 75 mg PO DAILY 02/04/20 02/04/20 History Cyclobenzaprine HCl 10 mg PO DAILY 02/04/20 02/04/20 History Allergies Allergy/AdvReac Type Severity Reaction Status Date / Time No Known Allergies Allergy Verified 02/04/20 16:16 Physical Exam Vitals: Vital Signs Temp Pulse Resp BP Pulse Ox 02/07/20 19:30 98.7 F 63 16 159/89 96 02/07/20 15:00 97.8 F 58 L 18 144/67 97 02/07/20 12:15 93 L 02/07/20 12:10 85 L 02/07/20 09:59 95 02/07/20 07:00 98.2 F 66 18 170/88 90 L 02/07/20 03:53 98.3 F 69 18 167/66 90 L 02/07/20 03:02 98.3 F Intake and Output 02/07/20 02/07/20 02/07/20 06:59 14:59 22:59 Intake Total 160 Balance 160 Intake: IV 160 Sodium Chloride 0.9% 1, 160 000 ml @ 20 mls/hr IV . Q24H [facility] Rx#:[id number] Other: Voiding Method Diaper Diaper Incontinent # Voids 1 GENERAL DESCRIPTION: Elderly female lying in bed, no distress. No tachypnea or accessory muscle of respiration use. HEENT: Shows Pallor , no scleral icterus. Oral mucous membrane is dry. NECK: Trachea central, no thyromegaly. LUNGS: Unlabored breathing. Decreased breath sound at the base. No wheeze or crackle. HEART: S1, S2, regular rate and rhythm. ABDOMEN: Soft, no tenderness , guarding or rigidity EXTREMITIES: No edema of feet. SKIN: No rash, no masses palpable. Patient did have a stage II sacral pressure ulcer with no slough tissue or surrounding cellulitis NEUROLOGICAL: The patient is awake, alert, oriented x3, mood and affect normal. Results CBC & Chem 7: 02/07/20 08:20 02/07/20 08:20 Labs: Abnormal Lab Results - Last 24 Hours (Table) 02/07/20 02/07/20 Range/Units 08:20 08:20 WBC 2.8 L (3.8-10.6) k/uL RBC 3.67 L (3.80-5.40) m/uL Hgb 9.8 L (11.4-16.0) gm/dL Hct 31.1 L (34.0-46.0) % RDW 15.8 H (11.5-15.5) % Plt Count 135 L (150-450) k/uL Calcium 8.2 L (8.4-10.2) mg/dL Lactate Dehydrogenase 660 H (313-618) U/L C-Reactive Protein 65.4 H (<10.0) mg/L Microbiology - Last 24 Hours (Table) 02/06/20 10:30 Urine Culture - Preliminary Urine,Clean Catch Gram Neg Bacilli 02/04/20 16:50 Blood Culture - Preliminary Blood No Growth after 72 hours Assessment and Plan Assessment: 1-patient presented hospital with hypoxemia in this patient who did have a multifocal infiltrate on the chest x-ray patient did have leukopenia elevated L DH CRP likely acute coronary infection that has been confirmed on nasopharyngeal swab with a repeat x-ray this morning which shows worsening infiltrate likely representing worsening of her COVID-19 pneumonia 2- Patient with a stage II sacral pressure ulcer with no definite cellulitis recommend local wound care. 3-positive UA likely enteric gram-negative enteric infection (1) Pressure ulcer of sacral region, stage 2 Current Visit: Yes Status: Acute Code(s): L89.152 - PRESSURE ULCER OF SACRAL REGION, STAGE 2 SNOMED Code(s): 407049334 (2) COVID-19 Current Visit: Yes Status: Acute Code(s): U07.1 - COVID-19 SNOMED Code(s): 344362165 Plan: 1-we will start the patient on Plaquenil 400 mg twice daily x2 doses followed by 12 mg twice daily x8 doses 2-add low-dose Solu-Medrol at 40 mg IV every 12 hours and zinc 3- Patient is already on anticoagulation per pulmonary 4- Continue with Rocephin for a UTI 5- dry Aquacel dressing packing of the sacral wound daily -we will follow on clinical condition and cultures to further adjust medication if needed Thank you for this consultation we will follow the patient along with you Time with Patient: Greater than 30
[2020-02-08] MEDS: SODIUM CHLORIDE 0.9% 1,000 ML IV SCH ×2 (07:06→17:33)
[2020-02-08] MEDS: FLUTICASONE 110 MCG INHALER INHALATION SCH ×2 (07:36→19:55)
[2020-02-08] MEDS: CLOPIDOGREL 75 MG TAB PO SCH (08:24)
[2020-02-08] MEDS: ZINC SULFATE 220 MG CAP PO SCH (08:24)
[2020-02-08] MEDS: levETIRAcetam 500 MG TAB PO SCH ×2 (08:24→22:15)
[2020-02-08] MEDS: APIXABAN 5 MG TAB PO SCH ×2 (08:24→22:16)
[2020-02-08] MEDS: PANTOPRAZOLE 40 MG TABLET PO SCH (08:24)
[2020-02-08] MEDS: CYCLOBENZAPRINE 10 MG TAB PO SCH (08:24)
[2020-02-08] MEDS: methylPREDNISolone SOD SUCCI 40 MG/ML 1 ML VIAL IV SCH ×2 (08:24→22:14)
[2020-02-08] MEDS: METOPROLOL TARTRATE 12.5 MG TAB PO SCH (08:24)
[2020-02-08] MEDS: HYDROXYCHLOROQUINE SULFATE 200 MG TAB PO SCH ×2 (08:24→22:15)
[2020-02-08] MEDS: LOSARTAN 50 MG TAB PO SCH (08:24)
[2020-02-08] MEDS: HYDROPHILIC CREAM 180 GM TUBE TOPICAL SCH (11:17)
[2020-02-08] MEDS: HYDROCORTISONE 2.5% RECTAL CREAM 30 GM TUBE RECTAL SCH ×2 (11:17→22:16)
--- NOTE | 2020-02-08 13:00 | P.PN ---
Subjective Progress Note Date: 02/08/20 Principal diagnosis: Acute on chronic hypoxic respiratory failure, acute CoVID 19 infection 64-year-old white female patient of Dr. Holley, who is well-known to our service from previous admissions for complications related to ESBL producing E. coli urinary tract infections with septicemia, has a known history of hypertension, [id number] diabetes mellitus, hyperlipidemia, morbid obesity, chronic atrial fibrillation on Eliquis, previous history of CVA with residual left-sided weakness, and gait dysfunction. Patient lives at home with her daughter and her , patient is bedbound, and requires 24-hour care which is provided by her daughter and her . She was brought into the hospital on 02/04/2020 were evaluation of low oxygen saturation and concern of COVID 19 infection. Patient's daughters are both hospital workers and tested positive for coron avirus. Otherwise patient states she feels well, she did not feel that she needed to be here, she has no complaints of shortness of breath, or any other specific complaints. Pulse ox was documented to be at 87% on room air on arrival, and patient also had low blood pressures of 80/48. Coronavirus PCR was positive. White blood cell count was 4.4, hemoglobin of 11.2, leukocyte count was 0.66, INR is 1.8, d-dimer was 0.63, sodium was 135, potassium is 4.4, chloride was 105, CO2 is 19, renal profile was within normal limits, plasma lactic acid was 1.2, ferritin level was within normal limits at 83.4, AST was 39, ALT and alk phos were within normal limits, LDH was 982, CRP was 32.7, proBNP was 4020, pro-calcitonin level was low at 0.11. Chest x-ray showed cardiomegaly with new small right pleural effusion, and patchy right mid and basilar acute atelectasis or infiltrate. EKG showed sinus bradycardia with evidence of an inferior infarct of undetermined age, no acute ST or T-wave abnormality. She was fluid resuscitated, she was given 500 mL bolus with improvement of her blood pressures. On today's exam she is awake and alert, oriented 3, she is resting comfortably in bed, she denies any specific complaints, no shortness of breath, she is on 2 L of oxygen the pulse ox 95%, blood pressures 110/59, patient has been afebrile. She states she is ready to go home today. On 02/06/2020 patient seen in follow-up on general medical floor, she is resting comfortably in bed, in no acute distress, she is currently on 3 L of oxygen the pulse ox of 94%, hemodynamically she is stable, she did have a fever spike with a temp of 101.0F early this morning at 3 AM. Today's labs have been reviewed showing leukopenia, with a white blood cell count of 2.7, hemoglobin of 9.5, platelet count is 142, sodium was 136, potassium is 2.9, the rest of the electrolytes and renal profile were within normal limits. No follow-up LDH or CRP or ferritin today, pro-calcitonin was 0.11, patient remains on azithromycin for empiric antibiotic coverage, she denies any shortness of breath, lung sounds are clear diminished at the bases, mentation seems to be appropriate. The patient is seen today 02/07/2020 in follow-up on the regular medical floor. She is currently awake and alert in no acute distress. She is maintaining O2 saturations in the low 90s on 2 L/m per nasal cannula. She did desaturate to 85% on room air. Chest x-ray does reveal worsening reticular by basilar airspace disease most likely multifocal pneumonia. Urine culture pending. Blood culture pending. Currently on azithromycin. He remains on bronchodilators. Anticoagulated with Eliquis. White count 2.8. Hemoglobin 9.8. Platelets 135. D-dimer 0.58. Sodium 138. Potassium 3.6. Creatinine 0.92. LDH 660. C-reactive protein 65. The patient is seen today 02/08/2020 in follow-up on the regular medical floor. She is currently resting comfortably in bed. Awake and alert in no acute distress. She is maintaining O2 saturations in the 90s on 4 L/m per nasal cannula. She's been afebrile. Somewhat hypertensive. Blood culture reveals no growth. Urine culture positive for gram-negative bacilli. She is currently on ceftriaxone. She's been seen by infectious disease and has been initiated on Plaquenil, IV Solu-Medrol and zinc for her Covid 19 positive status. Objective - Vital Signs Vital signs: Vital Signs Temp 98.2 F 02/08/20 07:00 Pulse 58 L 02/08/20 07:00 Resp 16 05/02/20 07:00 BP 170/69 02/08/20 07:00 Pulse Ox 96 02/08/20 07:00 Intake & Output 02/07/20 02/08/20 02/08/20 18:59 06:59 18:59 Intake Total 160 Output Total 0 Balance 160 0 Intake: IV 160 Sodium Chloride 0.9% 1, 160 000 ml @ 20 mls/hr IV . Q24H [facility] Rx#:[id number] Output: Urine 0 Other: Voiding Method Diaper Diaper Incontinent Incontinent # Voids 1 1 # Bowel Movements 1 - Exam GENERAL EXAM: Alert, very pleasant, 64-year-old obese female patient, currently resting comfortably in bed, on 4 L of oxygen with a pulse ox of 96% comfortable in no apparent distress. HEAD: Normocephalic/atraumatic. EYES: Normal reaction of pupils, equal size. Conjunctiva pink, sclera white. NOSE: Clear with pink turbinates. THROAT: No erythema or exudates. NECK: No masses, no JVD, no thyroid enlargement, no adenopathy. CHEST: No chest wall deformity. Symmetrical expansion. LUNGS: Equal air entry with bilateral scattered rhonchi. CVS: Regular rate and rhythm, normal S1 and S2, no gallops, no murmurs, no rubs ABDOMEN: Soft, nontender. No hepatosplenomegaly, normal bowel sounds, no guarding or rigidity. EXTREMITIES: No clubbing, chronic lower extremity nonpitting edema, no cyanosis, 2+ pulses and upper and lower extremities. MUSCULOSKELETAL: Muscle strength and tone normal. SPINE: No scoliosis or deformity SKIN: No rashes CENTRAL NERVOUS SYSTEM: Alert and oriented -2. No focal deficits, tone is normal in all 4 extremities. - Labs CBC & Chem 7: 02/07/20 08:20 02/08/20 08:52 Labs: Microbiology - Last 24 Hours (Table) 02/06/20 10:30 Urine Culture - Preliminary Urine,Clean Catch Gram Neg Bacilli 02/04/20 16:50 Blood Culture - Preliminary Blood No Growth after 72 hours Assessment and Plan Assessment: #1. Acute hypoxic respiratory failure related to acute Covid 19 infection #2. Hypotension, likely hypovolemic, responded well to fluids. Lactic acid was within normal limits #3. Elevated d-dimer of 0.63, LDH of 989, and CRP of 32.7, related to COVID 19 related infection #4. 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 coli requiring hospitalization #5. Morbid obesity #6. Diabetes mellitus type 2 #7. Hypertension #8. Hyperlipidemia #9. History of CVA 3 with left-sided weakness, and gait dysfunction #10. Carotid artery stenosis with prior carotid endarterectomy on the left #11. Paroxysmal atrial fibrillation on Eliquis #12. History of seizures on Keppra #13. History of ESBL E. coli bacteremia in October 2019 #14. History of MRSA infections #15. Gait dysfunction #16. Poor functional performance, patient resides at home and requires extensive assistance with ADLs #17. Leukopenia and fever, rule out sepsis. Blood cultures reveal no growth. Afebrile since 02/06/2020. Plan: The patient was seen and evaluated by Dr. Arellano She is improved from the pulmonary standpoint. Plaquenil, IV Solu-Medrol and zinc initiated by ID services Continued on ceftriaxone for gram-negative bacilli in the urine We'll continue to follow make further recommendations based on her clinical status I, the cosigning physician, performed a history & physical examination of the patient. Lungs sounds with bilateral scattered rhonchi. Maintaining good O2 saturations in the 90s on 4 L/m per nasal cannula. I discussed the assessment and plan of care with my nurse practitioner, Annette Dugan. I attest to the above note as dictated by her.
--- NOTE | 2020-02-08 14:45 | P.PN ---
Subjective 64-year-old pleasant female is admitted the for acute respiratory failure secondary to Covid 19 infection. Patient is presently on 3 L saturating only 94% because of which I'll hold her discharged today. Patient doesn't have any UTI symptoms but per neurology is recommending [facility] because of which a year was obtained. But her fever is secondary to Covid 19. Patient is mildly bradycardic because of which are cutting down the dose of metoprolol patient losartan dose will be cut down as well as patient's blood pressure is low normal. She is bit hypokalemic secondary to IV fluids and potassium will be replaced. 02/07/2020 Patient is on 3 L of oxygen which she cut down to 2 patient wanted to go home no matter or if you're able to wean off on's and patient will be discharged today. Patient was started on Rocephin by pulmonology because of abnormal uterine although I believe his chest and chronic bacteriuria with left arm pain consultation from infectious disease in their opinion regarding abnormal urine and other antibiotics. Patient is on azithromycin for Covid 19 infection 02/08/2020 Patient was pretty status improved although her chest x-ray was bit to worse yesterday. Urination gram-negative bacilli awaiting finalization of the urine cultures positive discharge tomorrow patient is saturating well without oxygen apparently patient has absent at home patient is being I was thinking of evaluation for subacute rehab but family wanted to come back and patient has been cared for by the family. Patient was started by infectious disease will be continued. Constitutional: Denied any fatigue denied any fever. Cardio vascular: denied any chest pain, palpitations Gastrointestinal denied any nausea vomiting Pulmonary: Denied any shortness of breath cough Neurologic denied any new focal deficits All inpatient medications were reviewed and appropriate changes in these medications as dictated in the interval history and assessment and plan. Objective - Vital Signs Vital signs: Vital Signs Temp 98.2 F 02/08/20 07:00 Pulse 58 L 02/08/20 07:00 Resp 16 02/08/20 07:00 BP 170/69 02/08/20 07:00 Pulse Ox 82 L 02/08/20 14:07 Intake & Output 02/07/20 02/08/20 02/08/20 18:59 06:59 18:59 Intake Total 160 Output Total 0 200 Balance 160 0 -200 Intake: IV 160 Sodium Chloride 0.9% 1, 160 000 ml @ 20 mls/hr IV . Q24H [facility] Rx#:[id number] Output: Urine 0 200 Other: Voiding Method Diaper Diaper Incontinent Incontinent # Voids 1 1 # Bowel Movements 1 - Exam PHYSICAL EXAMINATION: GENERAL: The patient is alert and oriented x3, not in any acute distress. Well developed, well nourished. HEENT: Pupils are round and equally reacting to light. EOMI. No scleral icterus. No conjunctival pallor. Normocephalic, atraumatic. No pharyngeal erythema. No thyromegaly. CARDIOVASCULAR: S1 and S2 present. No murmurs, rubs, or gallops. PULMONARY: No wheezing today ABDOMEN: Soft, nontender, nondistended, normoactive bowel sounds. No palpable organomegaly. MUSCULOSKELETAL: No joint swelling or deformity. EXTREMITIES: No cyanosis, clubbing, or pedal edema. NEUROLOGICAL: Gross neurological examination did not reveal any focal deficits. SKIN: No rashes. Note: Because of COVID 19 isolation, some of the history and physical exam findings or indirect and obtained from nursing staff, and other physician exami nations to avoid unnecessary contact with the patient. - Labs CBC & Chem 7: 02/07/20 08:20 02/08/20 08:52 Labs: Microbiology - Last 24 Hours (Table) 02/06/20 10:30 Urine Culture - Preliminary Urine,Clean Catch Gram Neg Bacilli 02/04/20 16:50 Blood Culture - Preliminary Blood No Growth after 72 hours Assessment and Plan Plan: 1 acute hypoxic respiratory failure: Secondary to COVID 19, continue the azithromycin supportive care agent appears to have some wheezing because of which patient will be started on inhalational treatments inhaled steroids. , P atient is bit better today no wheezing today, patient was evaluated by infectious disease the recommending return to continue Rocephin for possible urinary tract infection, finalization of the cultures are pending patient was started on plaque renal by infectious disease. Respiratory status today i mproved -Possible urinary tract infection management as mentioned above -Hypomagnesemia was replaced -Hypokalemia potassium was replaced -Atrial fibrillation presently bradycardic with all the rate control medications were discontinued except for metoprolol which will be started later today if her heart rate improves. Patient is on Eliquis which will continue -COPD with minimal exacerbation -History of seizures for which patient on Keppra which will be continued - type 2 diabetes mellitus hold off on metformin patient was started on sliding scale insulin -Hypertension is bit hypotensive cutting down the dose of metoprolol and losartan -DVT prophylaxis patient is already on anticoagulation for her A. fib
[2020-02-08] MEDS: CARVEDILOL 3.125 MG TAB PO SCH (16:28)
--- NOTE | 2020-02-08 22:13 | PN ---
PROGRESS NOTE DATE OF SERVICE: 02/08/2020 REASON FOR FOLLOW UP: Acute COVID-19 pneumonia. INTERVAL HISTORY: The patient is currently afebrile. The patient is breathing comfortably. The patient denies having any chest pain or cough. No nausea, no vomiting. No abdominal pain. No diarrhea. PHYSICAL EXAMINATION: Blood pressure 177/75 with a pulse of 65. Temperature is 97.9. She is 97% on 2 L nasal cannula. General description is an elderly female lying in bed in no distress. Respiratory system: Unlabored breathing, decreased breath sounds in the bases. No wheeze. Heart S1, S2. Regular rate and rhythm. Abdomen soft, no tenderness. LABS: Hemoglobin 9.8, white count 2.9, BUN of 12, creatinine 0.92. Urine with Enterobacter resistant to Rocephin. DIAGNOSTIC IMPRESSION AND PLAN: 1. Patient with fever, source likely acute COVID-19 pneumonia. This patient clinically responding to the Plaquenil, Zinc, Solu-Medrol and to continue. 2. Patient with Enterobacter urinary tract infection. Discontinue Rocephin and start the patient on cefepime and monitor clinical course closely. MMODL / IJN: [id number] /
[2020-02-08] MEDS: CITALOPRAM HYDROBROMIDE 20 MG TAB PO SCH (22:14)
[2020-02-08] MEDS: hydrALAZINE HCL 50 MG TAB PO SCH (22:15)
[2020-02-08] MEDS: ATORVASTATIN 80 MG TAB PO SCH (22:15)
[2020-02-08] MEDS: CEFEPIME 2 GM in SODIUM CHLORIDE 0.9% 100 ML IVPB SCH (22:16)
[2020-02-09 04:49] LABS: Appearance,Urine Cloudy (Clear); Bacteria,Urine Moderate /hpf; Bilirubin,Urine Negative (Negative); Blood,Urine Small (Negative); Budding Yeast,Urine Rare /hpf; Color,Urine Yellow; Glucose,Urine (UA) Negative (Negative); Hyaline Casts,Urine 1 /lpf (0-2); Ketones,Urine 1+ (Negative); Leukocyte Esterase,Urine Large (Negative); Mucus,Urine Rare /hpf; Nitrite,Urine Negative (Negative); Protein,Urine Trace (Negative); RBC,Urine 26 /hpf (0-5); Specific Gravity,Urine 1.013 (1.001-1.035); Squamous Epithelial Cell,Urine 3 /hpf (0-4); Urobilinogen,Urine <2.0 mg/dL (<2.0); WBC,Urine 13 /hpf (0-5)
[2020-02-09 06:44] LABS: Anisocytosis Slight; HCT 30.3 % (34.0-46.0); HGB 9.4 gm/dL (11.4-16.0); Hypochromasia Moderate; MCH 26.2 pg (25.0-35.0); MCHC 31.1 g/dL (31.0-37.0); MCV 84.4 fL (80.0-100.0); Mean Platelet Volume 8.1; Platelet Count 199 k/uL (150-450); RBC 3.59 m/uL (3.80-5.40); RDW 16.3 % (11.5-15.5); WBC 2.4 k/uL (3.8-10.6)
[2020-02-09 06:59] LABS: African American GFR (CKD) >90 (>60 ml/min/1.73 sqM); Anion Gap 8 mmol/L; Blood Urea Nitrogen 13 mg/dL (7-17); Calcium 8.6 mg/dL (8.4-10.2); Carbon Dioxide 22 mmol/L (22-30); Chloride 109 mmol/L (98-107); Glucose 171 mg/dL (74-99); Non-African American GFR(CKD) >90 (>60 ml/min/1.73 sqM); Potassium 3.4 mmol/L (3.5-5.1); Sodium 139 mmol/L (137-145)
[2020-02-09] MEDS: CYCLOBENZAPRINE 10 MG TAB PO SCH (07:42)
[2020-02-09] MEDS: APIXABAN 5 MG TAB PO SCH (07:42)
[2020-02-09] MEDS: levETIRAcetam 500 MG TAB PO SCH (07:42)
[2020-02-09] MEDS: PANTOPRAZOLE 40 MG TABLET PO SCH (07:42)
[2020-02-09] MEDS: CARVEDILOL 3.125 MG TAB PO SCH (07:42)
[2020-02-09] MEDS: hydrALAZINE HCL 50 MG TAB PO SCH (07:42)
[2020-02-09] MEDS: CLOPIDOGREL 75 MG TAB PO SCH (07:42)
[2020-02-09] MEDS: ZINC SULFATE 220 MG CAP PO SCH (07:43)
[2020-02-09] MEDS: LOSARTAN 50 MG TAB PO SCH (07:43)
[2020-02-09] MEDS: CEFEPIME 2 GM in SODIUM CHLORIDE 0.9% 100 ML IVPB SCH (07:43)
[2020-02-09] MEDS: methylPREDNISolone SOD SUCCI 40 MG/ML 1 ML VIAL IV SCH (07:43)
[2020-02-09] MEDS: HYDROCORTISONE 2.5% RECTAL CREAM 30 GM TUBE RECTAL SCH (07:44)
[2020-02-09] MEDS: HYDROPHILIC CREAM 180 GM TUBE TOPICAL SCH (07:44)
[2020-02-09] MEDS: FLUTICASONE 110 MCG INHALER INHALATION SCH (08:19)
[2020-02-09 09:36] VITALS: BP 162/74; PULSE 75; RESP 16; TEMP 98.7
[2020-02-09] MEDS: HYDROXYCHLOROQUINE SULFATE 200 MG TAB PO SCH (10:35)
--- NOTE | 2020-02-09 11:06 | P.PN ---
Subjective Progress Note Date: 02/09/20 Principal diagnosis: Acute on chronic hypoxic respiratory failure, acute CoVID 19 infection 64-year-old white female patient of Dr. Holley, who is well-known to our service from previous admissions for complications related to ESBL producing E. coli urinary tract infections with septicemia, has a known history of hypertension, [id number] diabetes mellitus, hyperlipidemia, morbid obesity, chronic atrial fibrillation on Eliquis, previous history of CVA with residual left-sided weakness, and gait dysfunction. Patient lives at home with her daughter and her , patient is bedbound, and requires 24-hour care which is provided by her daughter and her . She was brought into the hospital on 02/04/2020 were evaluation of low oxygen saturation and concern of COVID 19 infection. Patient's daughters are both hospital workers and tested positive for coron avirus. Otherwise patient states she feels well, she did not feel that she needed to be here, she has no complaints of shortness of breath, or any other specific complaints. Pulse ox was documented to be at 87% on room air on arrival, and patient also had low blood pressures of 80/48. Coronavirus PCR was positive. White blood cell count was 4.4, hemoglobin of 11.2, leukocyte count was 0.66, INR is 1.8, d-dimer was 0.63, sodium was 135, potassium is 4.4, chloride was 105, CO2 is 19, renal profile was within normal limits, plasma lactic acid was 1.2, ferritin level was within normal limits at 83.4, AST was 39, ALT and alk phos were within normal limits, LDH was 982, CRP was 32.7, proBNP was 4020, pro-calcitonin level was low at 0.11. Chest x-ray showed cardiomegaly with new small right pleural effusion, and patchy right mid and basilar acute atelectasis or infiltrate. EKG showed sinus bradycardia with evidence of an inferior infarct of undetermined age, no acute ST or T-wave abnormality. She was fluid resuscitated, she was given 500 mL bolus with improvement of her blood pressures. On today's exam she is awake and alert, oriented 3, she is resting comfortably in bed, she denies any specific complaints, no shortness of breath, she is on 2 L of oxygen the pulse ox 95%, blood pressures 110/59, patient has been afebrile. She states she is ready to go home today. On 02/06/2020 patient seen in follow-up on general medical floor, she is resting comfortably in bed, in no acute distress, she is currently on 3 L of oxygen the pulse ox of 94%, hemodynamically she is stable, she did have a fever spike with a temp of 101.0F early this morning at 3 AM. Today's labs have been reviewed showing leukopenia, with a white blood cell count of 2.7, hemoglobin of 9.5, platelet count is 142, sodium was 136, potassium is 2.9, the rest of the electrolytes and renal profile were within normal limits. No follow-up LDH or CRP or ferritin today, pro-calcitonin was 0.11, patient remains on azithromycin for empiric antibiotic coverage, she denies any shortness of breath, lung sounds are clear diminished at the bases, mentation seems to be appropriate. The patient is seen today 02/07/2020 in follow-up on the regular medical floor. She is currently awake and alert in no acute distress. She is maintaining O2 saturations in the low 90s on 2 L/m per nasal cannula. She did desaturate to 85% on room air. Chest x-ray does reveal worsening reticular by basilar airspace disease most likely multifocal pneumonia. Urine culture pending. Blood culture pending. Currently on azithromycin. He remains on bronchodilators. Anticoagulated with Eliquis. White count 2.8. Hemoglobin 9.8. Platelets 135. D-dimer 0.58. Sodium 138. Potassium 3.6. Creatinine 0.92. LDH 660. C-reactive protein 65. The patient is seen today 02/08/2020 in follow-up on the regular medical floor. She is currently resting comfortably in bed. Awake and alert in no acute distress. She is maintaining O2 saturations in the 90s on 4 L/m per nasal cannula. She's been afebrile. Somewhat hypertensive. Blood culture reveals no growth. Urine culture positive for gram-negative bacilli. She is currently on ceftriaxone. She's been seen by infectious disease and has been initiated on Plaquenil, IV Solu-Medrol and zinc for her Covid 19 positive status. The patient is seen today 02/09/2020 in follow-up on the regular medical floor. She remains awake and alert in no acute distress. She is maintaining O2 saturations in the low 90s on 2 L/m per nasal cannula. She's afebrile. Urine was positive for Enterobacter cloacae. White count 2.4. Hemoglobin 9.4. Sodium 139. Potassium 3.4. Chloride 109. Bicarb 22. Creatinine 0.62. She is currently on cefepime. Anticoagulated with Eliquis. Remains on Plaquenil, IV Solu-Medrol, zinc. Objective - Vital Signs Vital signs: Vital Signs Temp 98.7 F 02/09/20 09:32 Pulse 75 02/09/20 09:32 Resp 16 02/09/20 09:32 BP 162/74 02/09/20 09:32 Pulse Ox 91 L 02/09/20 09:32 Intake & Output 02/08/20 02/09/20 02/09/20 18:59 06:59 18:59 Intake Total 500 540 Output Total 200 1001 Balance -200 -501 540 Intake: Oral 500 540 Output: Urine 200 1000 Stool 1 Other: Voiding Method Incontinent Bedpan Incontinent Urinal Diaper Incontinent # Voids 2 # Bowel Movements 1 - Exam GENERAL EXAM: Alert, very pleasant, 64-year-old obese female patient, currently resting comfortably in bed, on 2 L of oxygen with a pulse ox of 91% comfortable in no apparent distress. HEAD: Normocephalic/atraumatic. EYES: Normal reaction of pupils, equal size. Conjunctiva pink, sclera white. NOSE: Clear with pink turbinates. THROAT: No erythema or exudates. NECK: No masses, no JVD, no thyroid enlargement, no adenopathy. CHEST: No chest wall deformity. Symmetrical expansion. LUNGS: Equal air entry with bilateral scattered rhonchi. CVS: Regular rate and rhythm, normal S1 and S2, no gallops, no murmurs, no rubs ABDOMEN: Soft, nontender. No hepatosplenomegaly, normal bowel sounds, no guarding or rigidity. EXTREMITIES: No clubbing, chronic lower extremity nonpitting edema, no cyanosis, 2+ pulses and upper and lower extremities. MUSCULOSKELETAL: Muscle strength and tone normal. SPINE: No scoliosis or deformity SKIN: No rashes CENTRAL NERVOUS SYSTEM: Alert and oriented -2. No focal deficits, tone is normal in all 4 extremities. - Labs CBC & Chem 7: 02/09/20 06:08 02/09/20 06:08 Labs: Abnormal Lab Results - Last 24 Hours (Table) 02/09/20 02/09/20 02/09/20 Range/Units 06:08 06:08 Unknown WBC 2.4 L (3.8-10.6) k/uL RBC 3.59 L (3.80-5.40) m/uL Hgb 9.4 L (11.4-16.0) gm/dL Hct 30.3 L (34.0-46.0) % RDW 16.3 H (11.5-15.5) % Potassium 3.4 L (3.5-5.1) mmol/L Chloride 109 H (98-107) mmol/L Glucose 171 H (74-99) mg/dL Urine Appearance Cloudy H (Clear) Urine Protein Trace H (Negative) Urine Ketones 1+ H (Negative) Urine Blood Small H (Negative) Ur Leukocyte Esterase Large H (Negative) Urine RBC 26 H (0-5) /hpf Urine WBC 13 H (0-5) /hpf Urine Bacteria Moderate H (None) /hpf Urine Mucus Rare H (None) /hpf Urine Yeast (Budding) Rare H (None) /hpf Microbiology - Last 24 Hours (Table) 02/04/20 16:50 Blood Culture - Preliminary Blood No Growth after 96 hours 02/06/20 10:30 Urine Culture - Final Urine,Clean Catch Enterobacter cloacae Assessment and Plan Assessment: #1. Acute hypoxic respiratory failure related to acute Covid 19 infection #2. Hypotension, likely hypovolemic, responded well to fluids. Lactic acid was within normal limits #3. Elevated d-dimer of 0.63, LDH of 989, and CRP of 32.7, related to COVID 19 related infection #4. 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 coli requiring hospitalization amount this admission the patient has urine culture positive for Enterobacter cloacae currently on ce fepime #5. Morbid obesity #6. Diabetes mellitus type 2 #7. Hypertension #8. Hyperlipidemia #9. History of CVA 3 with left-sided weakness, and gait dysfunction #10. Carotid artery stenosis with prior carotid endarterectomy on the left #11. Paroxysmal atrial fibrillation on Eliquis #12. History of seizures on Keppra #13. History of ESBL E. coli bacteremia in October 2019 #14. History of MRSA infections #15. Gait dysfunction #16. Poor functional performance, patient resides at home and requires extensive assistance with ADLs #17. Leukopenia and fever, rule out sepsis. Blood cultures reveal no growth. Afebrile since 02/06/2020. Plan: The patient was seen and evaluated by Dr. Arellano She is improved from the pulmonary standpoint. ID is on the case regarding Covid 19 and UTI Changed to cefepime for Enterobacter cloacae Home once cleared medically She does have home oxygen available. I, the cosigning physician, performed a history & physical examination of the patient. Lungs sounds with bilateral scattered rhonchi. Maintaining good O2 saturations in the 90s on 2 L/m per nasal cannula. I discussed the assessment and plan of care with my nurse practitioner, Annette Dugan. I attest to the above note as dictated by her.
--- NOTE | 2020-02-09 14:34 | P.DS ---
Providers Date of admission: 02/04/20 17:32 Attending physician: Kristi Pino Consults: 02/04/20 17:32 Consult Physician Routine Consulting Provider: Ora Arellano Consult Reason/Comments: covid 19 Do you want consulting provider notified?: Yes 02/07/20 10:19 Consult Physician Routine Consulting Provider: Nedra Dutta Consult Reason/Comments: COVID infection, asymptomatic bacteriuria Do you want consulting provider notified?: Yes Primary care physician: Rhys Holley Hospital Course: 64-year-old pleasant female is admitted the for acute respiratory failure secondary to Covid 19 infection. Patient is presently on 3 L saturating only 94% because of which I'll hold her discharged today. Patient doesn't have any UTI symptoms but per neurology is recommending [facility] because of which a year was obtained. But her fever is secondary to Covid 19. Patient is mildly bradycardic because of which are cutting down the dose of metoprolol patient losartan dose will be cut down as well as patient's blood pressure is low normal. She is bit hypokalemic secondary to IV fluids and potassium will be replaced. 02/07/2020 Patient is on 3 L of oxygen which she cut down to 2 patient wanted to go home no matter or if you're able to wean off on's and patient will be discharged today. Patient was started on Rocephin by pulmonology because of abnormal uterine although I believe his chest and chronic bacteriuria with left arm pain consultation from infectious disease in their opinion regarding abnormal urine and other antibiotics. Patient is on azithromycin for Covid 19 infection 02/08/2020 Patient was pretty status improved although her chest x-ray was bit to worse yesterday. Urination gram-negative bacilli awaiting finalization of the urine cultures positive discharge tomorrow patient is saturating well without oxygen apparently patient has absent at home patient is being I was thinking of evaluation for subacute rehab but family wanted to come back and patient has been cared for by the family. Patient was started by infectious disease will be continued. 02/09/2020 Patient is clinically doing well although requiring oxygen patient does use oxygen at home. Patient will be discharged today. We discussed regarding antibiotics with the infectious disease the recommending 3 more days of black renal but patient will not be started on any fluoroquinolones as patient most probably has a symptomatically bacteriuria that his note as of UTI. IDs not recommending any Cipro on levofloxacin at this time as patient has risk of QT prolongation with multiple medications including Celexa plaquanel and Cipro. PHYSICAL EXAMINATION: GENERAL: The patient is alert and oriented x3, not in any acute distress. Well developed, well nourished. HEENT: Pupils are round and equally reacting to light. EOMI. No scleral icterus. No conjunctival pallor. Normocephalic, atraumatic. No pharyngeal erythema. No thyromegaly. CARDIOVASCULAR: S1 and S2 present. No murmurs, rubs, or gallops. PULMONARY: Chest is clear to auscultation, no wheezing or crackles. ABDOMEN: Soft, nontender, nondistended, normoactive bowel sounds. No palpable organomegaly. MUSCULOSKELETAL: No joint swelling or deformity. EXTREMITIES: No cyanosis, clubbing, or pedal edema. NEUROLOGICAL: Gross neurological examination did not reveal any focal deficits. SKIN: No rashes. Assessment and Plan Plan: 1 acute hypoxic respiratory failure: Secondary to COVID 19, pretty status improved patient is being discharged today -Patient has a symptomatically bacteriuria will not require any antibiotics discuss with infectious disease they're not recommending in any more antibiotic support discharged patient will be discharged only hydroxychloroquine. There is no evidence of urinary tract infection -Hypomagnesemia was replaced -Hypokalemia potassium was replaced -Atrial fibrillation presently rate controlled sinus rhythm continue with Eliquis multiple medication changes were made -COPD with minimal exacerbation -History of seizures for which patient on Keppra which will be continued - type 2 diabetes mellitus hold off on metformin patient was started on sliding scale insulin -Hypertension Patient Condition at Discharge: Fair Plan - Discharge Summary Discharge Rx Participant: Yes New Discharge Prescriptions: New Hydroxychloroquine Sulfate [Plaquenil] 200 mg PO BID #6 tab Continue metFORMIN HCL [Glucophage] 500 mg PO AC-BID Atorvastatin [Lipitor] 80 mg PO HS Pantoprazole [Protonix] 40 mg PO DAILY Losartan Potassium 100 mg PO DAILY Citalopram Hydrobromide [CeleXA] 40 mg PO HS Apixaban [Eliquis] 5 mg PO BID Hydrocortisone Pr Cream [Proctosol-Hc 2.5%] 1 applic RECTAL BID #1 applic levETIRAcetam [Keppra] 1,000 mg PO Q12HR #60 tab Hydrophilic Cream [Triad Cream] 1 applic TOPICAL DAILY #1 applic Acetaminophen Tab [Tylenol] 650 mg PO Q6HR PRN tab PRN Reason: Fever And/ Or Pain Acetaminophen with Codeine [Tylenol w/codeine #3] 1 tab PO Q6H PRN PRN Reason: Pain hydrALAZINE HCL [Apresoline] 100 mg PO TID 30 Days #90 tab Carvedilol [Coreg] 6.25 mg PO BID-W/MEALS 30 Days #60 tab Clopidogrel [Plavix] 75 mg PO DAILY Cyclobenzaprine HCl 10 mg PO DAILY Discontinued Metoprolol Tartrate [Lopressor] 25 mg PO DAILY amLODIPine [Norvasc] 10 mg PO DAILY #30 tablet cloNIDine HCL [Catapres] 0.2 mg PO TID 30 Days #90 tab Discharge Medication List metFORMIN HCL [Glucophage] 500 mg PO AC-BID 05/30/16 [History] Atorvastatin [Lipitor] 80 mg PO HS 03/22/19 [History] Losartan Potassium 100 mg PO DAILY 03/22/19 [History] Pantoprazole [Protonix] 40 mg PO DAILY 03/22/19 [History] Citalopram Hydrobromide [CeleXA] 40 mg PO HS 07/06/19 [History] Apixaban [Eliquis] 5 mg PO BID 10/09/19 [History] Hydrocortisone Pr Cream [Proctosol-Hc 2.5%] 1 applic RECTAL BID #1 applic 10/31/19 [Rx] Acetaminophen Tab [Tylenol] 650 mg PO Q6HR PRN tab 11/12/19 [Rx] Hydrophilic Cream [Triad Cream] 1 applic TOPICAL DAILY #1 applic 11/12/19 [Rx] levETIRAcetam [Keppra] 1,000 mg PO Q12HR #60 tab 11/12/19 [Rx] Acetaminophen with Codeine [Tylenol w/codeine #3] 1 tab PO Q6H PRN 01/14/20 [History] Carvedilol [Coreg] 6.25 mg PO BID-W/MEALS 30 Days #60 tab 01/20/20 [Rx] hydrALAZINE HCL [Apresoline] 100 mg PO TID 30 Days #90 tab 01/20/20 [Rx] Clopidogrel [Plavix] 75 mg PO DAILY 02/04/20 [History] Cyclobenzaprine HCl 10 mg PO DAILY 02/04/20 [History] Hydroxychloroquine Sulfate [Plaquenil] 200 mg PO BID #6 tab 02/09/20 [Rx] Follow up Appointment(s)/Referral(s): Rhys Holley MD [Primary Care Provider] - 3 Days [facility], [NON-STAFF] - As Needed Patient Instructions/Handouts: Viral Pneumonia (DC) Discharge Disposition: HOME WITH HOME HEALTH SERVICES
== END 2020-02-09 14:37 | disposition home health service (06) | DRG 177 ==
LOC: EC 16:03 → 4SSUR 17:32
PROVIDERS: ADMIT Hospitalist; ATTEND Hospitalist
DX: U07.1 COVID-19 (principal); J96.21 Acute and chronic respiratory failure with hypoxia; J12.89 Other viral pneumonia; E87.2 Acidosis; J44.0 Chronic obstructive pulmonary disease with (acute) lower respiratory infection; J44.1 Chronic obstructive pulmonary disease with (acute) exacerbation; E78.5 Hyperlipidemia, unspecified; E83.42 Hypomagnesemia; D72.810 Lymphocytopenia; E11.9 Type 2 diabetes mellitus without complications; R56.9 Unspecified convulsions; E86.1 Hypovolemia; E87.6 Hypokalemia; I11.9 Hypertensive heart disease without heart failure; I65.29 Occlusion and stenosis of unspecified carotid artery; R26.9 Unspecified abnormalities of gait and mobility; L89.152 Pressure ulcer of sacral region, stage 2; F32.9 Major depressive disorder, single episode, unspecified; E66.01 Morbid (severe) obesity due to excess calories; I95.9 Hypotension, unspecified; I48.0 Paroxysmal atrial fibrillation; Z68.33 Body mass index [BMI] 33.0-33.9, adult; Z79.84 Long term (current) use of oral hypoglycemic drugs; Z79.02 Long term (current) use of antithrombotics/antiplatelets; Z79.01 Long term (current) use of anticoagulants; Z79.899 Other long term (current) drug therapy; Z83.3 Family history of diabetes mellitus; Z86.14 Personal history of Methicillin resistant Staphylococcus aureus infection; Z86.19 Personal history of other infectious and parasitic diseases; Z87.01 Personal history of pneumonia (recurrent); Z87.891 Personal history of nicotine dependence; Z98.51 Tubal ligation status; Z82.49 Family history of ischemic heart disease and other diseases of the circulatory system
CPT/HCPCS: 36415; 71045; 80048; 80053; 81001; 82728; 83605; 83615; 83735; 83880; 84132; 84145; 85025; 85027; 85379; 85610; 85730; 86140; 87040; 87077; 87086; 87186; 87635; 93005; 94640; 96361; 96365; 96366; 99285

== ENCOUNTER 2020-03-04 17:26 | Observation (INO) | payer MEDICARE, BC ==
[2020-03-04] MEDS ORDERED: PIPERACILLIN-TAZOBACTAM 3.375 GM in SODIUM CHLORIDE 0.9% 100 ML IVPB STA (20:01)
[2020-03-04] MEDS ORDERED: NALOXONE 0.4 MG/ML 1 ML VIAL IV PRN (20:37)
--- NOTE | 2020-03-04 20:37 | ED ---
Female Urogenital HPI - General Source: patient, family Mode of arrival: ambulatory Limitations: no limitations <Josefa Givens - Last Filed: 03/05/20 04:12> <Kris Grant - Last Filed: 03/06/20 00:27> - General Chief complaint: Urogenital Stated complaint: Infection Time Seen by Provider: 03/04/20 18:06 - History of Present Illness Initial comments: 64yo female presenting for IV antibiotics. Patient states she had outpatient laboratory and urinalysis performed as she has recurrent infections she states there was concern for urinary tract infection however the culture returned positive E.Coli with only sensitivities to IM or IV antibiotics. Pt denies fever, flank pain, nausea, general malaise. Patient states she has no complaints. Upon arrival pt afebrile no acute distress. Does not appear toxic. (Josefa Givens) - Related Data Home Medications Medication Instructions Recorded Confirmed metFORMIN HCL [Glucophage] 500 mg PO AC-BID 05/30/16 03/05/20 Atorvastatin [Lipitor] 80 mg PO HS 03/22/19 03/05/20 Losartan Potassium 100 mg PO DAILY 03/22/19 03/05/20 Pantoprazole [Protonix] 40 mg PO DAILY 03/22/19 03/05/20 Citalopram Hydrobromide [CeleXA] 40 mg PO HS 07/06/19 03/05/20 Apixaban [Eliquis] 5 mg PO BID 10/09/19 03/05/20 Cyclobenzaprine HCl 10 mg PO HS 02/04/20 03/05/20 hydrALAZINE HCL [Apresoline] 50 mg PO BID 03/05/20 03/05/20 levETIRAcetam [Keppra] 500 mg PO Q12HR 03/05/20 03/05/20 Previous Rx's Medication Instructions Recorded Acetaminophen Tab [Tylenol] 650 mg PO Q6HR PRN tab 11/12/19 Carvedilol [Coreg] 6.25 mg PO BID-W/MEALS 30 Days #60 01/20/20 tab Allergies Allergy/AdvReac Type Severity Reaction Status Date / Time lorazepam [From Ativan] Allergy Unknown Verified 03/04/20 17:33 Review of Systems ROS Other: All systems not noted in ROS Statement are negative. <Josefa Givens - Last Filed: 03/05/20 04:12> ROS Other: All systems not noted in ROS Statement are negative. <Kris Grant - Last Filed: 03/06/20 00:27> ROS Statement: Those systems with pertinent positive or pertinent negative responses have been documented in the HPI. Past Medical History Past Medical History: Atrial Fibrillation, CVA/TIA, Diabetes Mellitus, Hypertension Additional Past Medical History / Comment(s): cva x3- lt sided weakness, pt states she is unable to walk and is bedbound History of Any Multi-Drug Resistant Organisms: ESBL, MRSA Date of last positivie culture/infection: 02/28/20 ESBL MDRO Source:: URINE Past Surgical History: Tubal Ligation Additional Past Surgical History / Comment(s): CAROTID ENDART TO CLEAN OUT NECK ARTERY LEFT; information assoc chip placed Past Anesthesia/Blood Transfusion Reactions: No Reported Reaction Past Psychological History: Depression Smoking Status: Former smoker Past Alcohol Use History: None Reported Past Drug Use History: None Reported - Past Family History Brother(s) Family Medical History: No Reported History Sister(s) Family Medical History: Diabetes Mellitus Additional Family Medical History / Comment(s): RENAL FAILURE, ABCESSES Mother Additional Family Medical History / Comment(s): Brain Aneurism. Father Family Medical History: Diabetes Mellitus <Josefa Givens - Last Filed: 03/05/20 04:12> General Exam Limitations: no limitations <Josfea Givens - Last Filed: 03/05/20 04:12> - General Exam Comments Initial Comments: General: The patient is awake and alert, in no distress Eye: Pupils are equal, round and reactive to light, extra-ocular movements are intact. No nystagmus. There is normal conjunctiva bilaterally. No signs of icterus. Cardiovascular: There is a regular rate and rhythm. No murmur, rub or gallop is appreciated. Respiratory: Lungs are clear to auscultation, respirations are non-labored, breath sounds are equal. No wheezes, stridor, rales, or rhonchi. Gastrointestinal: Soft, non-distended, non-tender abdomen without masses or organomegaly noted. There is no rebound or guarding present. Musculoskeletal: Normal ROM, no tenderness. Strength 5/5. Sensation intact. Pulses equal bilaterally 2+. Neurological: A&O x 3. CN II-XII intact grossly, There are no obvious motor or sensory deficits. Coordination appears grossly intact. Speech is normal. Skin: Skin is warm and dry and no rashes or lesions are noted. Psychiatric: Cooperative, appropriate mood & affect, normal judgment. (Josefa Givens) Course <Kris Grant - Last Filed: 03/06/20 00:27> Vital Signs 03/04/20 03/04/20 03/05/20 17:31 23:15 00:00 Temperature 97.6 F 98.0 F Pulse Rate 86 82 80 Respiratory 19 18 18 Rate Blood Pressure 165/83 202/101 185/95 O2 Sat by Pulse 98 97 96 Oximetry 03/05/20 03/05/20 03/05/20 01:00 02:00 05:00 Temperature Pulse Rate 86 81 81 Respiratory 18 18 18 Rate Blood Pressure 162/75 157/74 175/81 O2 Sat by Pulse 96 97 97 Oximetry 03/05/20 03/05/20 03/05/20 07:00 08:58 11:34 Temperature 97.3 F L Pulse Rate 80 84 87 Respiratory 18 18 18 Rate Blood Pressure 176/83 195/88 167/84 O2 Sat by Pulse 98 98 98 Oximetry - Reevaluation(s) Reevaluation #1: 03/05/20 01:45 Patient's 64-year-old woman admitted for urinary tract infection. Nursing staff informed me that they were not able to obtain labs, and that her peripheral IV had stopped functioning. In light of this, I discussed risks, benefits, and indications for central line placement with the patient and family member at the bedside and they did give verbal consent. I placed a left femoral triple lumen central line without complication, see the procedure note. (Kris Grant) Procedures - Central Line Placement Left Femoral Consent Obtained: verbal consent Patient Placed on Monitor/Pulse Ox: Yes MD Prep: mask, gown, gloves Central Line Prep: Chlorhexidine scrub, sterile drapes applied Local Anesthesia Used: Lidocaine 1% Central Line Lumen Inserted: triple Bloods Obtained for Lab: Yes Central Line Position: good blood return, all ports aspirated, flushed, capped, sutured in place with nylon Dressing Applied: Tegaderm Patient Tolerated Procedure: well, no complications Complications: none <Kris Grant - Last Filed: 03/06/20 00:27> Medical Decision Making - Lab Data Result diagrams: 03/05/20 01:45 03/05/20 01:45 <Josefa Givens - Last Filed: 03/05/20 04:12> - Lab Data Result diagrams: 03/05/20 01:45 03/05/20 01:45 <Kris Grant - Last Filed: 03/06/20 00:27> - Medical Decision Making 64yo female presenting today for cc of IV abx no other complaints. Urine culture reviewed. IV access was not established. Numerous attempts. Pt will be given IM medications. Lactic acid was obtained which was WNL. HR not elevated, pt not hypotensive. No focalized findings. Patient will have a central line placed in order to establish vascular access for medications and for further evaluation of laboratory studies. Majority of care in ER was provided with Dr Salazar who was agreeable ti admissions for IV antibiotics concerning UTI. Dr Grant provided further care after shift change/lab results. however durther management will be of accepting admitting provider. Pt continues fo appear stable oral BP agents provided in lieu of IV when peripheral line not yet established will continue to monitor (Josefa Givens) - Lab Data Lab Results 03/04/20 Range/Units 18:45 Plasma Lactic Acid Rock 2.0 (0.7-2.0) mmol/L Disposition Is patient prescribed a controlled substance at d/c from ED?: No Time of Disposition: 20:36 Decision to Admit Reason: Admit from EC Decision Date: 03/04/20 Decision Time: 20:37 <Josefa Givens - Last Filed: 03/05/20 04:12> <Kris Grant - Last Filed: 03/06/20 00:27> Clinical Impression: UTI (urinary tract infection), Resistance to multiple antibiotics, Hypokalemia Disposition: ADMITTED IP TO THIS HOSP Condition: Stable
[2020-03-04] MEDS ORDERED: hydrALAZINE HCL 50 MG TAB PO STA (23:19)
[2020-03-04 23:20] VITALS: RESP 18
[2020-03-04] MEDS: SODIUM CHLORIDE 0.9% 1,000 ML IV SCH (23:20)
[2020-03-05 01:38] LABS: Appearance,Urine Clear (Clear); Bacteria,Urine Rare /hpf; Bilirubin,Urine Negative (Negative); Blood,Urine Negative (Negative); Budding Yeast,Urine Rare /hpf; Color,Urine Yellow; Glucose,Urine (UA) Negative (Negative); Hyphae Yeast, Urine Rare /hpf; Ketones,Urine Negative (Negative); Leukocyte Esterase,Urine Large (Negative); Nitrite,Urine Negative (Negative); Protein,Urine Trace (Negative); RBC,Urine 2 /hpf (0-5); Specific Gravity,Urine 1.008 (1.001-1.035); Urobilinogen,Urine <2.0 mg/dL (<2.0); WBC,Urine 52 /hpf (0-5)
[2020-03-05 02:00] LABS: Anisocytosis Slight; Basophils % (A) 1 %; Eosinophils # (A) 0.1 k/uL (0-0.7); Eosinophils % (A) 3 %; HCT 33.9 % (34.0-46.0); HGB 11.2 gm/dL (11.4-16.0); Hypochromasia Slight; Lymphocytes # (A) 1.2 k/uL (1.0-4.8); Lymphocytes % (A) 24 %; MCH 27.4 pg (25.0-35.0); MCHC 33.1 g/dL (31.0-37.0); MCV 82.7 fL (80.0-100.0); Mean Platelet Volume 8.4; Monocytes # (A) 0.2 k/uL (0-1.0); Monocytes % (A) 4 %; Neutrophils # (A) 3.3 k/uL (1.3-7.7); Neutrophils % (A) 68 %; Platelet Count 187 k/uL (150-450); RDW 16.3 % (11.5-15.5); WBC 4.9 k/uL (3.8-10.6)
[2020-03-05 02:16] LABS: ALT 10 U/L (4-34); AST 19 U/L (14-36); African American GFR (CKD) >90 (>60 ml/min/1.73 sqM); Albumin 2.5 g/dL (3.5-5.0); Alkaline Phosphatase 75 U/L (38-126); Anion Gap 6 mmol/L; Blood Urea Nitrogen 6 mg/dL (7-17); Calcium 7.7 mg/dL (8.4-10.2); Carbon Dioxide 30 mmol/L (22-30); Chloride 97 mmol/L (98-107); Glucose 102 mg/dL (74-99); Non-African American GFR(CKD) >90 (>60 ml/min/1.73 sqM); Potassium 2.8 mmol/L (3.5-5.1); Sodium 133 mmol/L (137-145); Total Bilirubin 0.6 mg/dL (0.2-1.3); Total Protein 5.3 g/dL (6.3-8.2)
[2020-03-05] MEDS ORDERED: POTASSIUM CHLORIDE 20 MEQ in WATER FOR INJECTION 1 100ML.BAG IVPB ONE (04:00)
[2020-03-05] MEDS: SODIUM CHLORIDE 0.9% 1,000 ML IV SCH ×2 (04:05→17:43)
[2020-03-05] MEDS ORDERED: ACETAMINOPHEN TAB 325 MG TAB PO PRN (09:40)
[2020-03-05] MEDS: PANTOPRAZOLE 40 MG TABLET PO SCH (10:23)
[2020-03-05] MEDS: metFORMIN 500 MG TAB PO SCH ×2 (10:23→17:32)
[2020-03-05] MEDS: CARVEDILOL 6.25 MG TAB PO SCH ×2 (10:23→17:32)
[2020-03-05] MEDS: hydrALAZINE HCL 50 MG TAB PO SCH ×2 (10:24→20:34)
[2020-03-05] MEDS: LOSARTAN 50 MG TAB PO SCH (10:24)
[2020-03-05] MEDS: levETIRAcetam 500 MG TAB PO SCH ×2 (10:24→22:15)
[2020-03-05] MEDS: APIXABAN 5 MG TAB PO SCH ×2 (10:24→20:34)
[2020-03-05] MEDS: POTASSIUM CHLORIDE ER 20 MEQ TAB.ER PO SCH ×2 (10:29→20:34)
--- NOTE | 2020-03-05 14:42 | P.HPIM ---
History of Present Illness His is a pleasant 64-year-old female was admitted secondary to is ESBL E. coli in the urine. Patient at this point of time denied any symptoms of dysuria and increased urinary frequency or urgency suprapubic pain flank pain this doesn't have any fever doesn't have any confusion. Patient doesn't have any symptoms of UTI urine is definitely abnormal. Patient has a renal calculi in the past which appears to be secondary to UTIs and patient has multiple urinary tract infections in the past. Review of Systems REVIEW OF SYSTEMS: CONSTITUTIONAL: No fever, no malaise, no fatigue. HEENT: No recent visual problems or hearing problems. Denied any sore throat. CARDIOVASCULAR: No chest pain, orthopnea, PND, no palpitations, no syncope. PULMONARY: No shortness of breath, no cough, no hemoptysis. GASTROINTESTINAL: No diarrhea, no nausea, no vomiting, no abdominal pain. NEUROLOGICAL: No headaches, no weakness, no numbness. HEMATOLOGICAL: Denies any bleeding or petechiae. GENITOURINARY: Denies any burning micturition, frequency, or urgency. MUSCULOSKELETAL/RHEUMATOLOGICAL: Denies any joint pain, swelling, or any muscle pain. ENDOCRINE: Denies any polyuria or polydipsia. The rest of the 14-point review of systems is negative. Past Medical History Past Medical History: Atrial Fibrillation, CVA/TIA, Diabetes Mellitus, Hypertension Additional Past Medical History / Comment(s): cva x3- lt sided weakness, pt states she is unable to walk and is bedbound History of Any Multi-Drug Resistant Organisms: ESBL, MRSA Date of last positivie culture/infection: 02/28/20 ESBL MDRO Source:: URINE Past Surgical History: Tubal Ligation Additional Past Surgical History / Comment(s): CAROTID ENDART TO CLEAN OUT NECK ARTERY LEFT; monitoring analyst chip placed Past Anesthesia/Blood Transfusion Reactions: No Reported Reaction Past Psychological History: Depression Smoking Status: Former smoker Past Alcohol Use History: None Reported Past Drug Use History: None Reported - Past Family History Brother(s) Family Medical History: No Reported History Sister(s) Family Medical History: Diabetes Mellitus Additional Family Medical History / Comment(s): RENAL FAILURE, ABCESSES Mother Additional Family Medical History / Comment(s): Brain Aneurism. Father Family Medical History: Diabetes Mellitus Medications and Allergies Home Medications Medication Instructions Recorded Confirmed Type metFORMIN HCL [Glucophage] 500 mg PO AC-BID 05/30/16 03/05/20 History Atorvastatin [Lipitor] 80 mg PO HS 03/22/19 03/05/20 History Losartan Potassium 100 mg PO DAILY 03/22/19 03/05/20 History Pantoprazole [Protonix] 40 mg PO DAILY 03/22/19 03/05/20 History Citalopram Hydrobromide [CeleXA] 40 mg PO HS 07/06/19 03/05/20 History Apixaban [Eliquis] 5 mg PO BID 10/09/19 03/05/20 History Acetaminophen Tab [Tylenol] 650 mg PO Q6HR PRN tab 11/12/19 03/05/20 Rx Carvedilol [Coreg] 6.25 mg PO BID-W/MEALS 30 Days #60 01/20/20 03/05/20 Rx tab Cyclobenzaprine HCl 10 mg PO HS 02/04/20 03/05/20 History hydrALAZINE HCL [Apresoline] 50 mg PO BID 03/05/20 03/05/20 History levETIRAcetam [Keppra] 500 mg PO Q12HR 03/05/20 03/05/20 History Allergies Allergy/AdvReac Type Severity Reaction Status Date / Time lorazepam [From Ativan] Allergy Unknown Verified 03/04/20 17:33 Physical Exam Vitals: Vital Signs Temp Pulse Pulse Resp BP BP Pulse Ox 03/05/20 14:32 97.9 F 72 18 134/77 97 03/05/20 11:34 87 18 167/84 98 03/05/20 08:58 97.3 F L 84 18 195/88 98 03/05/20 07:00 80 18 176/83 98 03/05/20 05:00 81 18 175/81 97 03/05/20 02:00 81 18 157/74 97 03/05/20 01:00 86 18 162/75 96 03/05/20 00:00 80 18 185/95 96 03/04/20 23:15 98.0 F 82 18 202/101 97 03/04/20 17:31 97.6 F 86 19 165/83 98 Intake and Output 03/04/20 03/05/20 03/05/20 22:59 06:59 14:59 Other: Weight 104.326 kg PHYSICAL EXAMINATION: GENERAL: The patient is alert and oriented x3, not in any acute distress. Well developed, well nourished. HEENT: Pupils are round and equally reacting to light. EOMI. No scleral icterus. No conjunctival pallor. Normocephalic, atraumatic. No pharyngeal erythema. No thyromegaly. CARDIOVASCULAR: S1 and S2 present. No murmurs, rubs, or gallops. PULMONARY: Chest is clear to auscultation, no wheezing or crackles. ABDOMEN: Soft, nontender, nondistended, normoactive bowel sounds. No palpable organomegaly. MUSCULOSKELETAL: No joint swelling or deformity. EXTREMITIES: No cyanosis, clubbing, or pedal edema. NEUROLOGICAL: Gross neurological examination did not reveal any focal deficits. SKIN: No rashes. Results CBC & Chem 7: 03/05/20 01:45 03/05/20 01:45 Labs: Abnormal Lab Results - Last 24 Hours (Table) 03/05/20 03/05/20 03/05/20 Range/Units 01:10 01:45 01:45 Hgb 11.2 L (11.4-16.0) gm/dL Hct 33.9 L (34.0-46.0) % RDW 16.3 H (11.5-15.5) % Sodium 133 L (137-145) mmol/L Potassium 2.8 L (3.5-5.1) mmol/L Chloride 97 L (98-107) mmol/L BUN 6 L (7-17) mg/dL Glucose 102 H (74-99) mg/dL Calcium 7.7 L (8.4-10.2) mg/dL Total Protein 5.3 L (6.3-8.2) g/dL Albumin 2.5 L (3.5-5.0) g/dL Urine Protein Trace H (Negative) Ur Leukocyte Esterase Large H (Negative) Urine WBC 52 H (0-5) /hpf Urine Bacteria Rare H (None) /hpf Urine Yeast (Budding) Rare H (None) /hpf Microbiology - Last 24 Hours (Table) 03/05/20 01:10 Urine Culture - Preliminary Urine,Catheterized Assessment and Plan Plan: -ESBL E. coli in urine cultures: Patient doesn't have any symptoms of UTI there is no evidence of urinary tract infection patient will not require any antibiotics. Patient will be continued on meropenem until she is evaluated by infectious disease as mentioned above she doesn't have any symptoms of UTI patient probably has a symptomatically bacteriuria and may not require antibiotics. -Hyponatremia hypotonic hyponatremia patient is on IV fluids which will be continued repeat basic metabolic profile tomorrow -Seizure disorder -Atrial fibrillation rate controlled and patient is on anti-correlation which will be continued -CVA TIA in the past -type 2 diabetes mellitus -hypertension -Depression For above-mentioned chronic stable medical problems patient will be resumed and continued on appropriate home medications
[2020-03-05] MEDS ORDERED: MEROPENEM 1 GM in SODIUM CHLORIDE 0.9% 100 ML IVPB SCH (16:00)
[2020-03-05] MEDS ORDERED: DICLOFENAC SODIUM GEL 100 GM TUBE TOPICAL PRN (17:06)
[2020-03-05] MEDS ORDERED: DICLOFENAC SODIUM GEL 100 GM TUBE TOPICAL SCH (18:00)
[2020-03-05] MEDS ORDERED: CITALOPRAM HYDROBROMIDE 20 MG TAB PO SCH (21:00)
[2020-03-05] MEDS ORDERED: ATORVASTATIN 80 MG TAB PO SCH (21:00)
[2020-03-05] MEDS ORDERED: CYCLOBENZAPRINE 10 MG TAB PO SCH (21:00)
--- NOTE | 2020-03-05 22:31 | P.CONS ---
History of Present Illness - Reason for Consult Consult date: 03/05/20 ESBL e.coli UTI Requesting physician: Corwin Lyn - Chief Complaint positive urine cultures with ESBL e.coli - History of Present Illness Patient is a 54-year-old female with a past medical history of the present for recurrent urine tract infection in this patient apparently did have a urine culture done in outpatient setting on 02/28/2020 which came back positive for ESBL E. coli for the patient has been advised to go to the hospital by the primary care physician it is not clear why she did have a UA and culture done on 02/28/2020 as the patient currently at this point denies having any burning or frequency of urine no suprapubic or flank pain no chest pain shortness of breath or cough no nausea vomiting overall mention she is doing well however she has hours in the past minimize her symptom and she wants to go home, during this admission patient has no fever or elevated white count-repeat UA is currently positive as well Review of Systems Positive point has been mentioned in HPI rest of the systems are negative Past Medical History Past Medical History: Atrial Fibrillation, CVA/TIA, Diabetes Mellitus, Hypertension Additional Past Medical History / Comment(s): cva x3- lt sided weakness, pt states she is unable to walk and is bedbound History of Any Multi-Drug Resistant Organisms: ESBL, MRSA Year Discovered:: 02/28/20 ESBL MDRO Source:: URINE Past Surgical History: Tubal Ligation Additional Past Surgical History / Comment(s): CAROTID ENDART TO CLEAN OUT NECK ARTERY LEFT; cardiac exercise physiologist chip placed Past Anesthesia/Blood Transfusion Reactions: No Reported Reaction Past Psychological History: Depression Smoking Status: Former smoker Past Alcohol Use History: None Reported Past Drug Use History: None Reported - Past Family History Brother(s) Family Medical History: No Reported History Sister(s) Family Medical History: Diabetes Mellitus Additional Family Medical History / Comment(s): RENAL FAILURE, ABCESSES Mother Additional Family Medical History / Comment(s): Brain Aneurism. Father Family Medical History: Diabetes Mellitus Medications and Allergies Home Medications Medication Instructions Recorded Confirmed Type metFORMIN HCL [Glucophage] 500 mg PO AC-BID 05/30/16 03/05/20 History Atorvastatin [Lipitor] 80 mg PO HS 03/22/19 03/05/20 History Losartan Potassium 100 mg PO DAILY 03/22/19 03/05/20 History Pantoprazole [Protonix] 40 mg PO DAILY 03/22/19 03/05/20 History Citalopram Hydrobromide [CeleXA] 40 mg PO HS 07/06/19 03/05/20 History Apixaban [Eliquis] 5 mg PO BID 10/09/19 03/05/20 History Acetaminophen Tab [Tylenol] 650 mg PO Q6HR PRN tab 11/12/19 03/05/20 Rx Carvedilol [Coreg] 6.25 mg PO BID-W/MEALS 30 Days #60 01/20/20 03/05/20 Rx tab Cyclobenzaprine HCl 10 mg PO HS 02/04/20 03/05/20 History hydrALAZINE HCL [Apresoline] 50 mg PO BID 03/05/20 03/05/20 History levETIRAcetam [Keppra] 500 mg PO Q12HR 03/05/20 03/05/20 History Allergies Allergy/AdvReac Type Severity Reaction Status Date / Time lorazepam [From Ativan] Allergy Unknown Verified 03/04/20 17:33 Physical Exam Vitals: Vital Signs Temp Pulse Pulse Resp BP BP Pulse Ox 03/05/20 14:32 97.9 F 72 18 134/77 97 03/05/20 11:34 87 18 167/84 98 03/05/20 08:58 97.3 F L 84 18 195/88 98 03/05/20 07:00 80 18 176/83 98 03/05/20 05:00 81 18 175/81 97 03/05/20 02:00 81 18 157/74 97 03/05/20 01:00 86 18 162/75 96 03/05/20 00:00 80 18 185/95 96 03/04/20 23:15 98.0 F 82 18 202/101 97 03/04/20 17:31 97.6 F 86 19 165/83 98 Intake and Output 03/05/20 03/05/20 03/05/20 06:59 14:59 22:59 Other: Weight 104.326 kg GENERAL DESCRIPTION: Elderly female lying in bed, no distress. No tachypnea or accessory muscle of respiration use. HEENT: Shows Pallor , no scleral icterus. Oral mucous membrane is dry. NECK: Trachea central, no thyromegaly. LUNGS: Unlabored breathing. Clear to auscultation anteriorly. No wheeze or crackle. HEART: S1, S2, regular rate and rhythm. ABDOMEN: Soft, no tenderness , guarding or rigidity EXTREMITIES: No edema of feet. SKIN: No rash, no masses palpable. NEUROLOGICAL: The patient is awake, alert, oriented x3, mood and affect normal. Results CBC & Chem 7: 03/05/20 01:45 03/05/20 01:45 Labs: Abnormal Lab Results - Last 24 Hours (Table) 03/05/20 03/05/20 03/05/20 Range/Units 01:10 01:45 01:45 Hgb 11.2 L (11.4-16.0) gm/dL Hct 33.9 L (34.0-46.0) % RDW 16.3 H (11.5-15.5) % Sodium 133 L (137-145) mmol/L Potassium 2.8 L (3.5-5.1) mmol/L Chloride 97 L (98-107) mmol/L BUN 6 L (7-17) mg/dL Glucose 102 H (74-99) mg/dL Calcium 7.7 L (8.4-10.2) mg/dL Total Protein 5.3 L (6.3-8.2) g/dL Albumin 2.5 L (3.5-5.0) g/dL Urine Protein Trace H (Negative) Ur Leukocyte Esterase Large H (Negative) Urine WBC 52 H (0-5) /hpf Urine Bacteria Rare H (None) /hpf Urine Yeast (Budding) Rare H (None) /hpf Microbiology - Last 24 Hours (Table) 03/05/20 01:10 Urine Culture - Preliminary Urine,Catheterized Assessment and Plan Assessment: -patient with a positive urine culture that was done in the outpatient setting showing ESBL E. coli is not very clear why she did have those urine culture done as patient currently do not have any urinary symptoms she is overall not a very good historian though however she has no fever or elevated white count making it to be less likely a symptomatic urine tract infection (1) Asymptomatic bacteriuria Current Visit: Yes Status: Acute Code(s): R82.71 - BACTERIURIA SNOMED Code(s): 068549637 Plan: 1-meropenem can be safely discontinued 2-patient will monitor closely off antibiotic therapy We will follow on clinical condition and cultures to further adjust medication if needed Thank you for this consultation we will follow the patient along with you Time with Patient: Greater than 30
[2020-03-06] MEDS: SODIUM CHLORIDE 0.9% 1,000 ML IV SCH (00:19)
[2020-03-06 03:23] VITALS: TEMP 97.7
[2020-03-06] MEDS: APIXABAN 5 MG TAB PO SCH (07:23)
[2020-03-06] MEDS: hydrALAZINE HCL 50 MG TAB PO SCH (07:23)
[2020-03-06] MEDS: POTASSIUM CHLORIDE ER 20 MEQ TAB.ER PO SCH (07:23)
[2020-03-06] MEDS: LOSARTAN 50 MG TAB PO SCH (07:23)
[2020-03-06] MEDS: metFORMIN 500 MG TAB PO SCH (07:24)
[2020-03-06] MEDS: CARVEDILOL 6.25 MG TAB PO SCH (07:24)
[2020-03-06] MEDS: PANTOPRAZOLE 40 MG TABLET PO SCH (07:24)
[2020-03-06] MEDS: levETIRAcetam 500 MG TAB PO SCH (07:24)
[2020-03-06 08:43] LABS: African American GFR (CKD) >90 (>60 ml/min/1.73 sqM); Anion Gap 6 mmol/L; Blood Urea Nitrogen 6 mg/dL (7-17); Calcium 7.6 mg/dL (8.4-10.2); Carbon Dioxide 29 mmol/L (22-30); Chloride 101 mmol/L (98-107); Glucose 63 mg/dL (74-99); Non-African American GFR(CKD) >90 (>60 ml/min/1.73 sqM); Potassium 3.3 mmol/L (3.5-5.1); Sodium 136 mmol/L (137-145)
[2020-03-06 09:11] VITALS: PULSE 86
[2020-03-06 11:16] VITALS: BMI 42.0
[2020-03-06] MEDS ORDERED: POTASSIUM CHLORIDE ER 20 MEQ TAB.ER PO STA (11:35)
--- NOTE | 2020-03-06 15:10 | PN ---
PROGRESS NOTE DATE OF SERVICE: 03/06/2020 REASON FOR FOLLOWUP: Positive urine culture with ESBL in outpatient setting. INTERVAL HISTORY: The patient is currently afebrile. The patient is breathing comfortably. The patient denies having any chest pain or shortness of breath or cough. No nausea, no vomiting, no abdominal pain, no diarrhea. PHYSICAL EXAMINATION: On examination, her blood pressure is 160/75 with a pulse of 83, temperature 97.7. She is 97% on room air. General description is an elderly female, lying in bed in no distress. RESPIRATORY SYSTEM: Unlabored breathing, clear to auscultation anteriorly. HEART: S1, S2. Regular rate and rhythm. ABDOMEN: Soft, no tenderness. LABS: BUN of 6, creatinine 0.54. Urine is currently showing Jyoti albicans. DIAGNOSTIC IMPRESSION AND PLAN: Patient with ESBL E coli positive urine culture in outpatient setting. Possible asymptomatic bacteriuria as the patient was sent along with it and the urine culture now showing the same pathogen. No need for antibiotic on discharge. Discussed with the admitting physician. MMODL / IJN: [id number] /
[2020-03-06 15:21] VITALS: BP 141/87
--- NOTE | 2020-03-06 15:24 | P.DS ---
Providers Date of admission: 03/04/20 20:31 Expected date of discharge: 03/06/20 Attending physician: Kristi Pino Consults: 03/05/20 12:43 Consult Physician Routine Consulting Provider: Nedra Dutta Consult Reason/Comments: Possible UTI Do you want consulting provider notified?: Yes Primary care physician: Rhys Holley Hospital Course: Final diagnosis -ESBL E. coli in urine cultures, probable asymptomatic bacteriuria -Hyponatremia; hypotonic hyponatremia -Natriuretic hypokalemia -Seizure disorder -Atrial fibrillation rate controlled -CVA TIA in the past -type 2 diabetes mellitus -hypertension -Depression Discharge disposition Patient is being discharged in a stable condition with guarded prognosis to home and will follow-up with Dr. Holley in the outpatient setting upon discharge. Total time taken is 35 minutes. History of present illness This is a 64-year-old female who was recently admitted with urinary tract infection failed outpatient with a history of ESBL E. coli in the urine and was being closely monitored. Patient was initially started on meropenem until seen and evaluated infectious disease. Antibiotics were discontinued and patient will not be requiring any antibiotics in the outpatient setting. Patient is normally alert and oriented 2 at baseline. Currently no reports of chest pain, shortness of breath, or palpitations. Patient is afebrile. No reports of nausea or vomiting and patient is tolerating diet. Patient will be going home today. On exam vital signs are stable. Temp is 97.7F, pulse is 86, respirations are 18, blood pressure is 141/87, oxygen saturation is 97% on room air. Cardio S1, S2 are present. Respiratory system shows diminished breath sounds at the bases with no wheezing or rhonchi noted. Abdomen is soft and nontender. Nervous system shows no focal deficits. Please refer to medication reconciliation sheet for a list of medications. Patient Condition at Discharge: Stable Plan - Discharge Summary Discharge Rx Participant: No New Discharge Prescriptions: Continue metFORMIN HCL [Glucophage] 500 mg PO AC-BID Atorvastatin [Lipitor] 80 mg PO HS Pantoprazole [Protonix] 40 mg PO DAILY Losartan Potassium 100 mg PO DAILY Citalopram Hydrobromide [CeleXA] 40 mg PO HS Apixaban [Eliquis] 5 mg PO BID Acetaminophen Tab [Tylenol] 650 mg PO Q6HR PRN tab PRN Reason: Fever And/ Or Pain Carvedilol [Coreg] 6.25 mg PO BID-W/MEALS 30 Days #60 tab Cyclobenzaprine HCl 10 mg PO HS hydrALAZINE HCL [Apresoline] 50 mg PO BID levETIRAcetam [Keppra] 500 mg PO Q12HR Discharge Medication List metFORMIN HCL [Glucophage] 500 mg PO AC-BID 05/30/16 [History] Atorvastatin [Lipitor] 80 mg PO HS 03/22/19 [History] Losartan Potassium 100 mg PO DAILY 03/22/19 [History] Pantoprazole [Protonix] 40 mg PO DAILY 03/22/19 [History] Citalopram Hydrobromide [CeleXA] 40 mg PO HS 07/06/19 [History] Apixaban [Eliquis] 5 mg PO BID 10/09/19 [History] Acetaminophen Tab [Tylenol] 650 mg PO Q6HR PRN tab 11/12/19 [Rx] Carvedilol [Coreg] 6.25 mg PO BID-W/MEALS 30 Days #60 tab 01/20/20 [Rx] Cyclobenzaprine HCl 10 mg PO HS 02/04/20 [History] hydrALAZINE HCL [Apresoline] 50 mg PO BID 03/05/20 [History] levETIRAcetam [Keppra] 500 mg PO Q12HR 03/05/20 [History] Follow up Appointment(s)/Referral(s): Rhys Holley MD [Primary Care Provider] - 03/12/20 11:30 am Ambulatory/Diagnostic Orders: Basic Metabolic Panel [LAB.AMB] Time Frame: 2 Days, Location: None Selected Patient Instructions/Handouts: Urinary Tract Infection in Women (DC) Activity/Diet/Wound Care/Special Instructions: Activity Limited until follow-up Follow up with primary care provider upon discharge Continue current diet Repeat labs in 2-3 days Discharge Disposition: HOME SELF-CARE
== END 2020-03-06 15:34 | disposition home or self-care (01) ==
LOC: EC 17:26 → 4SSUR 20:31 → 1SOBS 03-05 08:40 → 4SSUR 03-05 09:01
PROVIDERS: ADMIT Hospitalist; ATTEND Hospitalist
DX: R82.71 Bacteriuria (principal); Z16.12 Extended spectrum beta lactamase (ESBL) resistance; B96.20 Unspecified Escherichia coli [E. coli] as the cause of diseases classified elsewhere; E87.6 Hypokalemia; E87.1 Hypo-osmolality and hyponatremia; G40.909 Epilepsy, unspecified, not intractable, without status epilepticus; I48.19 Other persistent atrial fibrillation; I69.354 Hemiplegia and hemiparesis following cerebral infarction affecting left non-dominant side; E11.9 Type 2 diabetes mellitus without complications; I10 Essential (primary) hypertension; F32.9 Major depressive disorder, single episode, unspecified; Z79.84 Long term (current) use of oral hypoglycemic drugs; Z79.899 Other long term (current) drug therapy; Z79.01 Long term (current) use of anticoagulants; Z88.8 Allergy status to other drugs, medicaments and biological substances; Z74.01 Bed confinement status; Z86.14 Personal history of Methicillin resistant Staphylococcus aureus infection; Z86.19 Personal history of other infectious and parasitic diseases; Z98.51 Tubal ligation status; Z98.890 Other specified postprocedural states; Z95.818 Presence of other cardiac implants and grafts; Z87.891 Personal history of nicotine dependence; Z87.442 Personal history of urinary calculi; Z83.3 Family history of diabetes mellitus; Z84.1 Family history of disorders of kidney and ureter; Z84.89 Family history of other specified conditions; Z82.49 Family history of ischemic heart disease and other diseases of the circulatory system
CPT/HCPCS: 96361; 96366 ×2; 96367; 96365; 96372; 99284; 36415; 80053; 80048; 83605; 85025; 81001; 87040; 87086; G0378 ×3; U0003; J3480; J0694; J2185

== ENCOUNTER 2020-03-22 11:59 | Inpatient (IN) | payer MEDICARE, BC ==
[2020-03-22] MEDS ORDERED: SODIUM CHLORIDE 0.9% 500 ML 500 ML IV STA (12:25)
[2020-03-22 12:37] LABS: Anisocytosis Slight; Basophils % (A) 0 %; Eosinophils # (A) 0.1 k/uL (0-0.7); Eosinophils % (A) 1 %; HGB 10.4 gm/dL (11.4-16.0); Hypochromasia Slight; Lymphocytes # (A) 1.4 k/uL (1.0-4.8); Lymphocytes % (A) 20 %; MCH 26.8 pg (25.0-35.0); MCHC 32.4 g/dL (31.0-37.0); MCV 82.8 fL (80.0-100.0); Mean Platelet Volume 8.1; Monocytes # (A) 0.3 k/uL (0-1.0); Monocytes % (A) 4 %; Neutrophils # (A) 5.1 k/uL (1.3-7.7); Neutrophils % (A) 74 %; Platelet Count 228 k/uL (150-450); RBC 3.87 m/uL (3.80-5.40); RDW 16.5 % (11.5-15.5); WBC 6.9 k/uL (3.8-10.6)
[2020-03-22 12:47] LABS: ALT 9 U/L (4-34); AST 17 U/L (14-36); African American GFR (CKD) >90 (>60 ml/min/1.73 sqM); Albumin 2.6 g/dL (3.5-5.0); Alkaline Phosphatase 81 U/L (38-126); Anion Gap 7 mmol/L; Blood Urea Nitrogen 12 mg/dL (7-17); Calcium 8.4 mg/dL (8.4-10.2); Carbon Dioxide 27 mmol/L (22-30); Chloride 100 mmol/L (98-107); Creatine Kinase 40 U/L (30-135); Glucose 80 mg/dL (74-99); Non-African American GFR(CKD) >90 (>60 ml/min/1.73 sqM); Sodium 134 mmol/L (137-145); Total Bilirubin 1.1 mg/dL (0.2-1.3); Total Protein 5.3 g/dL (6.3-8.2)
--- NOTE | 2020-03-22 12:47 | ED ---
General Adult HPI - General Chief complaint: Recheck/Abnormal Lab/Rx Stated complaint: failure to thrive Time Seen by Provider: 03/22/20 12:21 Source: patient, EMS, RN notes reviewed Mode of arrival: EMS Limitations: physical limitation - History of Present Illness Initial comments: This a 64-year-old female presents emergency Department via EMS from home chief complaint failure thrive. Patient reportedly has been declining in health, decreased oral intake. She states she does not eat much food states that she drinks a little amount of fluids daily. She has had a cough is been ongoing. Denies any chest pain, headache or dizziness. She is appointment abdominal pain. She states that she does ambulate occasionally with a walker but has a wheelchair at home. Patient had no recent medication changes. Denies any vomiting diarrhea. No fevers chills. Patient gives very limited information - Related Data Home Medications Medication Instructions Recorded Confirmed metFORMIN HCL [Glucophage] 500 mg PO AC-BID 05/30/16 03/05/20 Atorvastatin [Lipitor] 80 mg PO HS 03/22/19 03/05/20 Losartan Potassium 100 mg PO DAILY 03/22/19 03/05/20 Pantoprazole [Protonix] 40 mg PO DAILY 03/22/19 03/05/20 Citalopram Hydrobromide [CeleXA] 40 mg PO HS 07/06/19 03/05/20 Apixaban [Eliquis] 5 mg PO BID 10/09/19 03/05/20 Cyclobenzaprine HCl 10 mg PO HS 02/04/20 03/05/20 hydrALAZINE HCL [Apresoline] 50 mg PO BID 03/05/20 03/05/20 levETIRAcetam [Keppra] 500 mg PO Q12HR 03/05/20 03/05/20 Previous Rx's Medication Instructions Recorded Acetaminophen Tab [Tylenol] 650 mg PO Q6HR PRN tab 11/12/19 Carvedilol [Coreg] 6.25 mg PO BID-W/MEALS 30 Days #60 01/20/20 tab Allergies Allergy/AdvReac Type Severity Reaction Status Date / Time lorazepam [From Ativan] Allergy Unknown Verified 03/04/20 17:33 Review of Systems ROS Statement: Those systems with pertinent positive or pertinent negative responses have been documented in the HPI. ROS Other: All systems not noted in ROS Statement are negative. Past Medical History Past Medical History: Atrial Fibrillation, CVA/TIA, Diabetes Mellitus, Hypertension Additional Past Medical History / Comment(s): cva x3- lt sided weakness, pt states she is unable to walk and is bedbound History of Any Multi-Drug Resistant Organisms: ESBL, MRSA Date of last positivie culture/infection: 02/28/20 ESBL MDRO Source:: URINE Past Surgical History: Tubal Ligation Additional Past Surgical History / Comment(s): CAROTID ENDART TO CLEAN OUT NECK ARTERY LEFT; ekg monitor tech chip placed Past Anesthesia/Blood Transfusion Reactions: No Reported Reaction Past Psychological History: Depression Smoking Status: Former smoker Past Alcohol Use History: None Reported Past Drug Use History: None Reported - Past Family History Brother(s) Family Medical History: No Reported History Sister(s) Family Medical History: Diabetes Mellitus Additional Family Medical History / Comment(s): RENAL FAILURE, ABCESSES Mother Additional Family Medical History / Comment(s): Brain Aneurism. Father Family Medical History: Diabetes Mellitus General Exam Limitations: physical limitation General appearance: alert, in no apparent distress Head exam: Present: atraumatic, normocephalic, normal inspection Eye exam: Present: normal appearance, PERRL, EOMI. Absent: scleral icterus, conjunctival injection, periorbital swelling ENT exam: Present: mucous membranes dry. Absent: normal exam, normal oropharynx, mucous membranes moist Neck exam: Present: normal inspection, full ROM. Absent: tenderness, men ingismus, lymphadenopathy Respiratory exam: Present: normal lung sounds bilaterally. Absent: respiratory distress, wheezes, rales, rhonchi, stridor Cardiovascular Exam: Present: regular rate, normal rhythm, normal heart sounds. Absent: systolic murmur, diastolic murmur, rubs, gallop, clicks GI/Abdominal exam: Present: soft, normal bowel sounds. Absent: distended, tenderness, guarding, rebound, rigid Neurological exam: Present: alert, oriented X3 Skin exam: Present: dry Course Vital Signs 03/22/20 03/22/20 03/22/20 12:06 12:30 13:00 Temperature 97.9 F Pulse Rate 74 74 71 Respiratory 18 Rate Blood Pressure 133/75 133/75 137/67 O2 Sat by Pulse 99 96 100 Oximetry 03/22/20 13:30 Temperature Pulse Rate 75 Respiratory Rate Blood Pressure 162/72 O2 Sat by Pulse 100 Oximetry EKG Findings - EKG Comments: EKG Findings:: EKG performed at oh: 12 sinus rhythm with short SD, rate of 75 SD 104 QRS 88 QT/QTC 466/520 Medical Decision Making - Medical Decision Making 64-year-old presented for failure to thrive. Patient will be dehydrated, hypomagnesemia with a magnesium of 1, potassium 3.0 replacement was ordered. Patient has evidence of urinary tract infection she has had some confusion which it is unclear is from infection or dementia. Patient started on room states that she's been steadily declining. Patient refused the or drink at home. Dede ent has evidence of urinary tract infection, Rocephin was ordered. Blood culture urine culture ordered. Patient's case discussed with Dr. Arguelles to in which the patient will be admitted. - Lab Data Result diagrams: 03/22/20 12:19 03/22/20 12:19 Lab Results 03/22/20 03/22/20 03/22/20 Range/Units 12:19 12:19 12:19 WBC 6.9 (3.8-10.6) k/uL RBC 3.87 (3.80-5.40) m/uL Hgb 10.4 L (11.4-16.0) gm/dL Hct 32.0 L (34.0-46.0) % MCV 82.8 (80.0-100.0) fL MCH 26.8 (25.0-35.0) pg MCHC 32.4 (31.0-37.0) g/dL RDW 16.5 H (11.5-15.5) % Plt Count 228 (150-450) k/uL Neutrophils % 74 % Lymphocytes % 20 % Monocytes % 4 % Eosinophils % 1 % Basophils % 0 % Neutrophils # 5.1 (1.3-7.7) k/uL Lymphocytes # 1.4 (1.0-4.8) k/uL Monocytes # 0.3 (0-1.0) k/uL Eosinophils # 0.1 (0-0.7) k/uL Basophils # 0.0 (0-0.2) k/uL Hypochromasia Slight Anisocytosis Slight PT 11.8 (9.0-12.0) sec INR 1.2 H (<1.2) APTT 25.0 (22.0-30.0) sec Sodium 134 L (137-145) mmol/L Potassium 3.0 L (3.5-5.1) mmol/L Chloride 100 (98-107) mmol/L Carbon Dioxide 27 (22-30) mmol/L Anion Gap 7 mmol/L BUN 12 (7-17) mg/dL Creatinine 0.56 (0.52-1.04) mg/dL Est GFR (CKD-EPI)AfAm >90 (>60 ml/min/1.73 sqM) Est GFR (CKD-EPI)NonAf >90 (>60 ml/min/1.73 sqM) Glucose 80 (74-99) mg/dL Plasma Lactic Acid Rock (0.7-2.0) mmol/L Calcium 8.4 (8.4-10.2) mg/dL Magnesium 1.0 L (1.6-2.3) mg/dL Total Bilirubin 1.1 (0.2-1.3) mg/dL AST 17 (14-36) U/L ALT 9 (4-34) U/L Alkaline Phosphatase 81 (38-126) U/L Creatine Kinase 40 (30-135) U/L Troponin I (0.000-0.034) ng/mL Total Protein 5.3 L (6.3-8.2) g/dL Albumin 2.6 L (3.5-5.0) g/dL Urine Color Urine Appearance (Clear) Urine pH (5.0-8.0) Ur Specific [place] (1.001-1.035) Urine Protein (Negative) Urine Glucose (UA) (Negative) Urine Ketones (Negative) Urine Blood (Negative) Urine Nitrite (Negative) Urine Bilirubin (Negative) Urine Urobilinogen (<2.0) mg/dL Ur Leukocyte Esterase (Negative) Urine RBC (0-5) /hpf Urine WBC (0-5) /hpf 03/22/20 03/22/20 03/22/20 Range/Units 12:19 12:19 14:10 WBC (3.8-10.6) k/uL RBC (3.80-5.40) m/uL Hgb (11.4-16.0) gm/dL Hct (34.0-46.0) % MCV (80.0-100.0) fL MCH (25.0-35.0) pg MCHC (31.0-37.0) g/dL RDW (11.5-15.5) % Plt Count (150-450) k/uL Neutrophils % % Lymphocytes % % Monocytes % % Eosinophils % % Basophils % % Neutrophils # (1.3-7.7) k/uL Lymphocytes # (1.0-4.8) k/uL Monocytes # (0-1.0) k/uL Eosinophils # (0-0.7) k/uL Basophils # (0-0.2) k/uL Hypochromasia Anisocytosis PT (9.0-12.0) sec INR (<1.2) APTT (22.0-30.0) sec Sodium (137-145) mmol/L Potassium (3.5-5.1) mmol/L Chloride (98-107) mmol/L Carbon Dioxide (22-30) mmol/L Anion Gap mmol/L BUN (7-17) mg/dL Creatinine (0.52-1.04) mg/dL Est GFR (CKD-EPI)AfAm (>60 ml/min/1.73 sqM) Est GFR (CKD-EPI)NonAf (>60 ml/min/1.73 sqM) Glucose (74-99) mg/dL Plasma Lactic Acid Rock 1.1 (0.7-2.0) mmol/L Calcium (8.4-10.2) mg/dL Magnesium (1.6-2.3) mg/dL Total Bilirubin (0.2-1.3) mg/dL AST (14-36) U/L ALT (4-34) U/L Alkaline Phosphatase (38-126) U/L Creatine Kinase (30-135) U/L Troponin I 0.030 (0.000-0.034) ng/mL Total Protein (6.3-8.2) g/dL Albumin (3.5-5.0) g/dL Urine Color Yellow Urine Appearance Clear (Clear) Urine pH 7.5 (5.0-8.0) Ur Specific [place] 1.013 (1.001-1.035) Urine Protein Trace H (Negative) Urine Glucose (UA) Negative (Negative) Urine Ketones 1+ H (Negative) Urine Blood Negative (Negative) Urine Nitrite Negative (Negative) Urine Bilirubin Negative (Negative) Urine Urobilinogen <2.0 (<2.0) mg/dL Ur Leukocyte Esterase Moderate H (Negative) Urine RBC 1 (0-5) /hpf Urine WBC 22 H (0-5) /hpf Disposition Clinical Impression: Failure to thrive, UTI (urinary tract infection), Dehydration, Hypokalemia, Hypomagnesemia Disposition: ADMITTED IP TO THIS HOSP Condition: Fair Referrals: Rhys Holley MD [Primary Care Provider] - 1-2 days
[2020-03-22 12:54] LABS: INR 1.2 (<1.2); Prothrombin Time 11.8 sec (9.0-12.0)
--- NOTE | 2020-03-22 13:00 | XR ---
EXAMINATION TYPE: XR chest 2V DATE OF EXAM: 03/22/2020 HISTORY: Weakness. REFERENCE: Previous study dated 02/07/2020. FINDINGS: Study is moderately rotated. The heart is enlarged. The lungs are clear. Pleural space are clear. IMPRESSION: MILD CARDIOMEGALY.
[2020-03-22] MEDS ORDERED: POTASSIUM BICARBONATE/CIT AC 20 MEQ TABLET.EFF PO ONE (14:03)
[2020-03-22] MEDS ORDERED: SODIUM CHLORIDE 0.9% 1,000 ML IV ONE (14:11)
[2020-03-22 14:26] LABS: Appearance,Urine Clear (Clear); Bilirubin,Urine Negative (Negative); Blood,Urine Negative (Negative); Color,Urine Yellow; Glucose,Urine (UA) Negative (Negative); Ketones,Urine 1+ (Negative); Leukocyte Esterase,Urine Moderate (Negative); Nitrite,Urine Negative (Negative); PH, Urine 7.5 (5.0-8.0); Protein,Urine Trace (Negative); RBC,Urine 1 /hpf (0-5); Specific Gravity,Urine 1.013 (1.001-1.035); Urobilinogen,Urine <2.0 mg/dL (<2.0); WBC,Urine 22 /hpf (0-5)
[2020-03-22] MEDS ORDERED: MAGNESIUM SULFATE-D5W PMX 1 GM in DEXTROSE/WATER 1 100ML.BAG IVPB ONE (14:44)
[2020-03-22] MEDS ORDERED: NALOXONE 0.4 MG/ML 1 ML VIAL IV PRN (14:48)
[2020-03-22] MEDS ORDERED: ONDANSETRON 4 MG/2 ML VIAL IVP PRN (14:48)
[2020-03-22 17:28] LABS: Glucose,Whole Blood 92 mg/dL (75-99)
[2020-03-22 20:36] LABS: Glucose,Whole Blood 76 mg/dL (75-99)
[2020-03-22] MEDS ORDERED: Potassium Replacement Protocol 1 EACH MISC MISCELLANE PRN (21:08)
--- NOTE | 2020-03-22 21:29 | P.HPIM ---
History of Present Illness H&P Date: 03/22/20 Chief Complaint: Altered Mental status Patient is a 64-year-old female with a known history of hypertension, diabetes type 2 [id number], paroxysmal atrial fibrillation currently not on any anticoagulation, history of CVA with left-sided weakness, history of ESBL urinary tract infection, carotid endarterectomy, depression and previous history of smoking was brought to the hospital by EMS along with her due to complaints of altered mental status and failure to thrive. Patient has been declining health and decreased oral intake. Patient has been drinking only liquids Patient was diagnosed with COVID-19 viral infection about 3 months ago. Patient is off oxygen. Patient still having cough without sputum production. No nausea vomiting or abdominal pain or diarrhea. Patient usually ambulates with a walker. Patient was more confused than normal today and was brought to the hospital by EMS. Patient is a poor historian and most of the history was taken from medical records and her at bedside. EKG showed sinus rhythm with short WI. Prolonged QT. Chest x-ray showed cardiomegaly. Laboratory data showed WBC 6.9, hemoglobin 1 0.4, platelets 228 INR 1.2 Sodium 134 and potassium 3.0 Chloride 100 and BUN 12 and creatinine 0.56 Magnesium level is 1.0 during onset not elevated albumin 2.6 Urinalysis showed yellow with 1+ ketones moderate leukocyte esterase and 22 WBCs Review of Systems Constitutional: Patient denies any fever or chills . . decreased appetite, weight loss. gen weakness Abdomen: Patient denied nausea vomiting and diarrhea and abdominal pain. Cardiovascular: Patient denies any chest pain or short of breath no palpitations. Respiratory: patient denied any cough is from production. No shortness of breath Neurologic: Patient denied any numbness or tingling headache. Musculoskeletal: Patient denies any complaints of joint swelling or deformity. Complete review of systems could not be obtained from the patient. Past Medical History Past Medical History: Atrial Fibrillation, CVA/TIA, Diabetes Mellitus, Hypertension Additional Past Medical History / Comment(s): cva x3- lt sided weakness, pt states she is unable to walk and is bedbound History of Any Multi-Drug Resistant Organisms: ESBL, MRSA Date of last positivie culture/infection: 02/28/20 ESBL MDRO Source:: URINE Past Surgical History: Tubal Ligation Additional Past Surgical History / Comment(s): CAROTID ENDART TO CLEAN OUT NECK ARTERY LEFT; monitor technician chip placed Past Anesthesia/Blood Transfusion Reactions: No Reported Reaction Past Psychological History: Depression Smoking Status: Former smoker Past Alcohol Use History: None Reported Past Drug Use History: None Reported - Past Family History Brother(s) Family Medical History: No Reported History Sister(s) Family Medical History: Diabetes Mellitus Additional Family Medical History / Comment(s): RENAL FAILURE, ABCESSES Mother Additional Family Medical History / Comment(s): Brain Aneurism. Father Family Medical History: Diabetes Mellitus Medications and Allergies Home Medications Medication Instructions Recorded Confirmed Type metFORMIN HCL [Glucophage] 500 mg PO AC-BID 05/30/16 03/22/20 History Atorvastatin [Lipitor] 80 mg PO HS 03/22/19 03/22/20 History Losartan Potassium 100 mg PO DAILY 03/22/19 03/22/20 History Pantoprazole [Protonix] 40 mg PO DAILY 03/22/19 03/22/20 History Citalopram Hydrobromide [CeleXA] 40 mg PO HS 07/06/19 03/22/20 History Acetaminophen Tab [Tylenol] 650 mg PO Q6HR PRN tab 11/12/19 03/22/20 Rx Carvedilol [Coreg] 6.25 mg PO BID-W/MEALS 30 Days #60 01/20/20 03/22/20 Rx tab Cyclobenzaprine HCl 10 mg PO HS 02/04/20 03/22/20 History hydrALAZINE HCL [Apresoline] 50 mg PO BID 03/05/20 03/22/20 History levETIRAcetam [Keppra] 500 mg PO Q12HR 03/05/20 03/22/20 History Aspirin EC [Ecotrin Low Dose] 81 mg PO DAILY 03/22/20 03/22/20 History Allergies Allergy/AdvReac Type Severity Reaction Status Date / Time lorazepam [From Ativan] Allergy Unknown Verified 03/22/20 19:53 Physical Exam Vitals: Vital Signs Temp Pulse Resp BP Pulse Ox 03/22/20 13:30 75 162/72 100 03/22/20 13:00 71 137/67 100 03/22/20 12:30 74 133/75 96 03/22/20 12:06 97.9 F 74 18 133/75 99 Intake and Output 03/22/20 03/22/20 03/22/20 06:59 14:59 22:59 Other: Weight 108.862 kg PHYSICAL EXAMINATION: Patient is lying in the bed comfortably, no acute distress, awake alert and oriented 2-3. drowsy and lethrgic. HEENT: Normocephalic. Neck is supple. Pupils reactive. Nostrils clear. Oral cavity is moist. Ears reveal no drainage. Neck reveals no JVD, carotid bruits, or thyromegaly. CHEST EXAMINATION: Trachea is central. Symmetrical expansion. Lung clifford clear to auscultation and percussion. CARDIAC: Normal S1, S2 with no gallops. No murmurs ABDOMEN: Soft. Bowel sounds normal. No organomegaly. No abdominal bruits. Extremities: reveal no edema. No clubbing or cyanosis lethargc, left sided weakness. Skin: No rash or skin lesions. Psychiatric: Cooperative. could not be assesed completely Musculoskeletal: No joint swelling or deformity. Results CBC & Chem 7: 03/22/20 12:19 03/22/20 12:19 Labs: Abnormal Lab Results - Last 24 Hours (Table) 03/22/20 03/22/20 03/22/20 Range/Units 12:19 12:19 12:19 Hgb 10.4 L (11.4-16.0) gm/dL Hct 32.0 L (34.0-46.0) % RDW 16.5 H (11.5-15.5) % INR 1.2 H (<1.2) Sodium 134 L (137-145) mmol/L Potassium 3.0 L (3.5-5.1) mmol/L Magnesium 1.0 L (1.6-2.3) mg/dL Total Protein 5.3 L (6.3-8.2) g/dL Albumin 2.6 L (3.5-5.0) g/dL Urine Protein (Negative) Urine Ketones (Negative) Ur Leukocyte Esterase (Negative) Urine WBC (0-5) /hpf 03/22/20 Range/Units 14:10 Hgb (11.4-16.0) gm/dL Hct (34.0-46.0) % RDW (11.5-15.5) % INR (<1.2) Sodium (137-145) mmol/L Potassium (3.5-5.1) mmol/L Magnesium (1.6-2.3) mg/dL Total Protein (6.3-8.2) g/dL Albumin (3.5-5.0) g/dL Urine Protein Trace H (Negative) Urine Ketones 1+ H (Negative) Ur Leukocyte Esterase Moderate H (Negative) Urine WBC 22 H (0-5) /hpf Thrombosis Risk Factor Assmnt - DVT/VTE Prophylaxis DVT/VTE Prophylaxis: Pharmacologic Prophylaxis ordered Assessment and Plan Assessment: Altered mental status possible metabolic encephalopathy with infection. Acute urinary tract infection Severe hypokalemia and hypomagnesemia Hypovolemic hyponatremia Failure to thrive Recent COVID-19 viral infection 2 months ago. Currently on room air Diabetes type 2 [id number] History of CVA with left-sided weakness. Hypertension Paroxysmal atrial fibrillation currently not on any anticoagulation History of ESBL urinary tract infection Depression Previous history of smoking Morbid obesity with BMI 41.2 Plan: Patient will be continued on gentle hydration replace potassium and magnesium. Continue with antibiotics in the form of ceftriaxone for urinary tract infection. Continue to encourage oral intake and PT OT will be consulted. Continue with home medications and further recommendations based on the clinical course. Prognosis guarded. Discussed with her at bedside in detail. Time with Patient: Greater than 30
[2020-03-22] MEDS: levETIRAcetam 500 MG TAB PO SCH (21:47)
[2020-03-22] MEDS: ATORVASTATIN 80 MG TAB PO SCH (21:47)
[2020-03-22] MEDS: LOSARTAN 50 MG TAB PO SCH (21:47)
[2020-03-22] MEDS: CITALOPRAM HYDROBROMIDE 20 MG TAB PO SCH (21:48)
[2020-03-22] MEDS: hydrALAZINE HCL 50 MG TAB PO SCH (21:48)
[2020-03-22] MEDS: SODIUM CHLORIDE 0.9% 1,000 ML IV SCH (21:48)
[2020-03-22] MEDS: CARVEDILOL 6.25 MG TAB PO SCH (21:48)
[2020-03-22] MEDS: INSULIN ASPART (NovoLOG) 100 UNIT/ML VIAL SQ SCH (21:50)
[2020-03-22 22:25] LABS: Glucose,Whole Blood 81 mg/dL (75-99)
[2020-03-22] MEDS: HEPARIN SODIUM,PORCINE 5,000 UNIT/ML 1 ML VIAL SQ SCH (23:48)
[2020-03-23] MEDS: SODIUM CHLORIDE 0.9% 1,000 ML IV SCH ×2 (04:24→17:29)
[2020-03-23 07:08] LABS: Glucose,Whole Blood 73 mg/dL (75-99)
[2020-03-23] MEDS: INSULIN ASPART (NovoLOG) 100 UNIT/ML VIAL SQ SCH ×4 (07:52→20:39)
[2020-03-23] MEDS: ASPIRIN 81 MG PO SCH (07:56)
[2020-03-23] MEDS: CARVEDILOL 6.25 MG TAB PO SCH ×2 (07:56→17:29)
[2020-03-23] MEDS: hydrALAZINE HCL 50 MG TAB PO SCH ×2 (07:56→20:48)
[2020-03-23] MEDS: LOSARTAN 50 MG TAB PO SCH (07:56)
[2020-03-23] MEDS: PANTOPRAZOLE 40 MG TABLET PO SCH (07:56)
[2020-03-23] MEDS: HEPARIN SODIUM,PORCINE 5,000 UNIT/ML 1 ML VIAL SQ SCH ×2 (07:57→17:29)
[2020-03-23] MEDS: levETIRAcetam 500 MG TAB PO SCH ×2 (07:57→20:48)
[2020-03-23 09:15] LABS: African American GFR (CKD) >90 (>60 ml/min/1.73 sqM); Anion Gap 4 mmol/L; Blood Urea Nitrogen 9 mg/dL (7-17); Calcium 7.7 mg/dL (8.4-10.2); Carbon Dioxide 27 mmol/L (22-30); Chloride 104 mmol/L (98-107); Glucose 72 mg/dL (74-99); Non-African American GFR(CKD) >90 (>60 ml/min/1.73 sqM); Sodium 135 mmol/L (137-145)
[2020-03-23 09:21] LABS: Potassium 2.5 mmol/L (3.5-5.1)
[2020-03-23 09:31] LABS: Anisocytosis Slight; Basophils % (A) 0 %; Eosinophils # (A) 0.1 k/uL (0-0.7); Eosinophils % (A) 1 %; HCT 30.2 % (34.0-46.0); HGB 9.8 gm/dL (11.4-16.0); Hypochromasia Slight; Lymphocytes # (A) 0.9 k/uL (1.0-4.8); Lymphocytes % (A) 18 %; MCH 27.3 pg (25.0-35.0); MCHC 32.5 g/dL (31.0-37.0); Mean Platelet Volume 8.4; Monocytes # (A) 0.2 k/uL (0-1.0); Monocytes % (A) 3 %; Neutrophils # (A) 3.7 k/uL (1.3-7.7); Neutrophils % (A) 76 %; Platelet Count 179 k/uL (150-450); RBC 3.59 m/uL (3.80-5.40); RDW 16.2 % (11.5-15.5); WBC 4.9 k/uL (3.8-10.6)
[2020-03-23] MEDS: POTASSIUM CHLORIDE 10 MEQ in WATER FOR INJECTION 1 100ML.BAG IVPB SCH ×3 (09:44→12:32)
[2020-03-23] MEDS: POTASSIUM CHLORIDE ER 20 MEQ TAB.ER PO SCH ×3 (09:44→13:46)
[2020-03-23] MEDS: MAGNESIUM SULFATE-D5W PMX 1 GM in DEXTROSE/WATER 1 100ML.BAG IVPB SCH ×2 (11:19→13:47)
[2020-03-23 11:37] LABS: Glucose,Whole Blood 83 mg/dL (75-99)
[2020-03-23 15:33] VITALS: BMI 41.1
[2020-03-23 16:42] LABS: Glucose,Whole Blood 95 mg/dL (75-99)
[2020-03-23 20:37] LABS: Glucose,Whole Blood 86 mg/dL (75-99)
[2020-03-23] MEDS: ATORVASTATIN 80 MG TAB PO SCH (20:48)
[2020-03-23] MEDS: CITALOPRAM HYDROBROMIDE 20 MG TAB PO SCH (20:48)
--- NOTE | 2020-03-24 00:08 | P.PN ---
Subjective Progress Note Date: 03/23/20 Principal diagnosis: Altered mental status possible metabolic encephalopathy with infection. Patient is a 64-year-old female with a known history of hypertension, diabetes type 2 [id number], paroxysmal atrial fibrillation currently not on any anticoagulation, history of CVA with left-sided weakness, history of ESBL urinary tract infection, carotid endarterectomy, depression and previous history of smoking was brought to the hospital by EMS along with her due to complaints of altered mental status and failure to thrive. Patient has been declining health and decreased oral intake. Patient has been drinking only liquids Patient was diagnosed with COVID-19 viral infection about 3 months ago. Patient is off oxygen. Patient still having cough without sputum production. No nausea vomiting or abdominal pain or diarrhea. Patient usually ambulates with a walker. Patient was more confused than normal today and was brought to the hospital by EMS. Patient is a poor historian and most of the history was taken from medical records and her at bedside. EKG showed sinus rhythm with short MN. Prolonged QT. Chest x-ray showed cardiomegaly. Laboratory data showed WBC 6.9, hemoglobin 10.4, platelets 228 INR 1.2 Sodium 134 and potassium 3.0 Chloride 100 and BUN 12 and creatinine 0.56 Magnesium level is 1.0 during onset not elevated albumin 2.6 Urinalysis showed yellow with 1+ ketones moderate leukocyte esterase and 22 WBCs 03/23/2020 Patient is currently lying in the bed comfortably. Patient is more awake and oriented today. POTASSIUM level is 2.5 which is being replaced. Patient is being continued on antibiotics off ceftriaxone for urinary tract infection. Urine culture showed Jyoti albicans. No leukocytosis. Patient has been afebrile. PT OT was consulted. Patient is wheelchair-bound at baseline. Otherwise denied any complaints of chest pain or shortness breath.. Current medications reviewed. Objective - Vital Signs Vital signs: Vital Signs Temp 98.2 F 03/23/20 07:00 Pulse 71 03/23/20 07:00 Resp 18 03/23/20 07:00 BP 171/72 03/23/20 07:00 Pulse Ox 98 03/23/20 07:00 Intake & Output 03/22/20 03/23/20 03/23/20 18:59 06:59 18:59 Intake Total 150 Output Total 600 Balance -450 Weight 108.862 kg Intake: Oral 150 Output: Urine 600 Straight 600 Other: Voiding Method Diaper Diaper - Exam PHYSICAL EXAMINATION: Patient is lying in the bed comfortably, no acute distress, awake alert and o riented 2-3. drowsy and lethrgic. HEENT: Normocephalic. Neck is supple. Pupils reactive. Nostrils clear. Oral cavity is moist. Ears reveal no drainage. Neck reveals no JVD, carotid bruits, or thyromegaly. CHEST EXAMINATION: Trachea is central. Symmetrical expansion. Lung clifford clear to auscultation and percussion. CARDIAC: Normal S1, S2 with no gallops. No murmurs ABDOMEN: Soft. Bowel sounds normal. No organomegaly. No abdominal bruits. Extremities: reveal no edema. No clubbing or cyanosis lethargc, left sided weakness. Skin: No rash or skin lesions. Psychiatric: Cooperative. could not be assesed completely Musculoskeletal: No joint swelling or deformity. - Labs CBC & Chem 7: 03/23/20 08:30 03/23/20 16:31 Labs: Abnormal Lab Results - Last 24 Hours (Table) 03/22/20 03/22/20 03/22/20 Range/Units 12:19 12:19 12:19 RBC (3.80-5.40) m/uL Hgb 10.4 L (11.4-16.0) gm/dL Hct 32.0 L (34.0-46.0) % RDW 16.5 H (11.5-15.5) % Lymphocytes # (1.0-4.8) k/uL INR 1.2 H (<1.2) Sodium 134 L (137-145) mmol/L Potassium 3.0 L (3.5-5.1) mmol/L Creatinine (0.52-1.04) mg/dL Glucose (74-99) mg/dL POC Glucose (mg/dL) (75-99) mg/dL Calcium (8.4-10.2) mg/dL Magnesium 1.0 L (1.6-2.3) mg/dL Total Protein 5.3 L (6.3-8.2) g/dL Albumin 2.6 L (3.5-5.0) g/dL Urine Protein (Negative) Urine Ketones (Negative) Ur Leukocyte Esterase (Negative) Urine WBC (0-5) /hpf 03/22/20 03/23/20 03/23/20 Range/Units 14:10 07:06 08:30 RBC 3.59 L (3.80-5.40) m/uL Hgb 9.8 L (11.4-16.0) gm/dL Hct 30.2 L (34.0-46.0) % RDW 16.2 H (11.5-15.5) % Lymphocytes # 0.9 L (1.0-4.8) k/uL INR (<1.2) Sodium (137-145) mmol/L Potassium (3.5-5.1) mmol/L Creatinine (0.52-1.04) mg/dL Glucose (74-99) mg/dL POC Glucose (mg/dL) 73 L (75-99) mg/dL Calcium (8.4-10.2) mg/dL Magnesium (1.6-2.3) mg/dL Total Protein (6.3-8.2) g/dL Albumin (3.5-5.0) g/dL Urine Protein Trace H (Negative) Urine Ketones 1+ H (Negative) Ur Leukocyte Esterase Moderate H (Negative) Urine WBC 22 H (0-5) /hpf 03/23/20 Range/Units 08:30 RBC (3.80-5.40) m/uL Hgb (11.4-16.0) gm/dL Hct (34.0-46.0) % RDW (11.5-15.5) % Lymphocytes # (1.0-4.8) k/uL INR (<1.2) Sodium 135 L (137-145) mmol/L Potassium 2.5 L* (3.5-5.1) mmol/L Creatinine 0.51 L (0.52-1.04) mg/dL Glucose 72 L (74-99) mg/dL POC Glucose (mg/dL) (75-99) mg/dL Calcium 7.7 L (8.4-10.2) mg/dL Magnesium (1.6-2.3) mg/dL Total Protein (6.3-8.2) g/dL Albumin (3.5-5.0) g/dL Urine Protein (Negative) Urine Ketones (Negative) Ur Leukocyte Esterase (Negative) Urine WBC (0-5) /hpf Microbiology - Last 24 Hours (Table) 03/22/20 14:10 Urine Culture - Preliminary Urine,Voided Assessment and Plan Assessment: Altered mental status possible metabolic encephalopathy with infection. Acute urinary tract infection Severe hypokalemia and hypomagnesemia Hypovolemic hyponatremia Failure to thrive Recent COVID-19 viral infection 2 months ago. Currently on room air Diabetes type 2 [id number] History of CVA with left-sided weakness. Hypertension Paroxysmal atrial fibrillation currently not on any anticoagulation History of ESBL urinary tract infection Depression Previous history of smoking Morbid obesity with BMI 41.2 Plan: Patient will be continued on gentle hydration replace potassium and magnesium. Continue with antibiotics in the form of ceftriaxone for urinary tract infection. Continue to encourage oral intake and PT OT will be consulted. Continue with home medications and further recommendations based on the clinical course. Prognosis guarded. Discussed with her at bedside in detail. Time with Patient: Greater than 30
[2020-03-24] MEDS: HEPARIN SODIUM,PORCINE 5,000 UNIT/ML 1 ML VIAL SQ SCH ×4 (00:24→23:06)
[2020-03-24 03:36] LABS: Glucose,Whole Blood 79 mg/dL (75-99)
[2020-03-24 06:57] LABS: Glucose,Whole Blood 221 mg/dL (75-99)
[2020-03-24] MEDS: SODIUM CHLORIDE 0.9% 1,000 ML IV SCH ×2 (07:41→20:20)
[2020-03-24] MEDS: INSULIN ASPART (NovoLOG) 100 UNIT/ML VIAL SQ SCH ×4 (07:53→21:08)
[2020-03-24] MEDS: LOSARTAN 50 MG TAB PO SCH (07:58)
[2020-03-24] MEDS: hydrALAZINE HCL 50 MG TAB PO SCH ×2 (07:58→20:18)
[2020-03-24] MEDS: ASPIRIN 81 MG PO SCH (07:58)
[2020-03-24] MEDS: PANTOPRAZOLE 40 MG TABLET PO SCH (07:58)
[2020-03-24] MEDS: CARVEDILOL 6.25 MG TAB PO SCH ×2 (07:58→17:38)
[2020-03-24] MEDS: levETIRAcetam 500 MG TAB PO SCH (07:59)
[2020-03-24 11:56] LABS: Glucose,Whole Blood 90 mg/dL (75-99)
--- NOTE | 2020-03-24 16:10 | EEG ---
ELECTROENCEPHALOGRAM REPORT DATE OF SERVICE: 03/24/2020 PREAMBLE: This is a 64-year-old female with intermittent episodes of confusion. Rule out seizures. EEG FINDINGS: This is a 21 channel routine EEG recording on a patient utilizing 10-20 international system with bipolar and referential montages. The background consists of well- developed, moderately well regulated, mixed frequencies of 4-6 hertz theta, with some alpha and some delta activity. Background does not seem to be reactive to eye opening and closing. Different stages of sleep were not seen. Photic driving response was not seen. Some myogenic activity and eye movement artifacts were frequently seen. No focal or generalized epileptiform activity was seen. IMPRESSION: This is an abnormal EEG due to background slowing and disorganization. This is suggestive of generalized cerebral dysfunction as can be seen with toxic metabolic encephalopathies or due to diffuse structural brain abnormality. No epileptiform activity was seen. MMJOSEL / IJN: [id number] /
[2020-03-24 17:07] LABS: Glucose,Whole Blood 122 mg/dL (75-99)
--- NOTE | 2020-03-24 17:46 | P.CNNES ---
History of Present Illness Consult date: 03/24/20 Requesting physician: Feli Arguelles Reason for Consult: Intermittent confusion, possible seizure History of Present Illness: Patient is a 64-year-old female brought to the hospital for failure to thrive. Patient reportedly has been declining in health, decreased oral intake. She does not eat much food, states she drinks a little amount of fluids daily. Patient has history of stroke about 4 years ago, with residual left hemiplegia. Patient is wheelchair bound since then. Patient also has history of seizures since October 2019. Patient is currently on Keppra. She lives at home with her . Patient not able to provide any history. Her was present at the time of this interview. He states that patient has been acting different for couple weeks. Patient's stated that in the last week she had 3 spells, in which when patient is being transferred from 40 chair to the bed, she locks up, look straight on the ceiling, does not respond. It lasts for a couple minutes. No shaking or clonic activity. No tongue bite. Patient had an EEG performed today, which revealed background slowing and disorganization. No definitive epileptiform activity was seen. Patient underwent Chest x-ray showed cardiomegaly. EKG shows sinus rhythm with short UT interval. ST and T-wave abnormality, consider inferior ischemia. Prolonged QT. Patient had an MRI of the brain on 11/08/2023 fall and mental status change. The tibial suspect punctate foci of acute/subacute ischemia throughout the bi lateral sethi radiate a. There is background mild to moderate diffuse cerebral atrophy and advanced chronic small vessel ischemic change with old right-sided posterior watershed infarct are all redemonstrated. Patient had a 2-D echo on 01/14/2020, which revealed mild concentric LVH. EF is 55-60%. Left atrium is mildly dilated. Mild aortic valve sclerosis. Moderate mitral annular calcification. Patient CTA of the neck from 05/31/2016 showed atheromatous plaquing at the right internal carotid artery origin without significant flow limiting stenosis. The neck vessels visualized appear patent. Patient has history of left CEA in the past. Patient has suffered from COVID 19 in January 2020. Her sethi virus PCR is now negative. Patient's other family members including her also suffered from sethi virus at that time. Patient's blood test shows normal WBC, hemoglobin 9.8 and platelets are 179. Sodium 135, potassium 3.8, renal functions normal. Hemoglobin A1c 5.2. Liver panel normal. TSH normal on 10/10/2019. UA showed moderate leukocyte esterase, 22 WBCs. Rare bacteria. Urine cultures have grown Jyoti albicans 10,000-49,000. Blood culture negative. 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 Father Family Medical History: Diabetes Mellitus Medications and Allergies Home Medications Medication Instructions Recorded Confirmed Type metFORMIN HCL [Glucophage] 500 mg PO AC-BID 05/30/16 03/22/20 History Atorvastatin [Lipitor] 80 mg PO HS 03/22/19 03/22/20 History Losartan Potassium 100 mg PO DAILY 03/22/19 03/22/20 History Pantoprazole [Protonix] 40 mg PO DAILY 03/22/19 03/22/20 History Citalopram Hydrobromide [CeleXA] 40 mg PO HS 07/06/19 03/22/20 History Acetaminophen Tab [Tylenol] 650 mg PO Q6HR PRN tab 11/12/19 03/22/20 Rx Carvedilol [Coreg] 6.25 mg PO BID-W/MEALS 30 Days #60 01/20/20 03/22/20 Rx tab Cyclobenzaprine HCl 10 mg PO HS 02/04/20 03/22/20 History hydrALAZINE HCL [Apresoline] 50 mg PO BID 03/05/20 03/22/20 History levETIRAcetam [Keppra] 500 mg PO Q12HR 03/05/20 03/22/20 History Aspirin EC [Ecotrin Low Dose] 81 mg PO DAILY 03/22/20 03/22/20 History Allergies Allergy/AdvReac Type Severity Reaction Status Date / Time lorazepam [From Ativan] Allergy Unknown Verified 03/22/20 19:53 Physical Examination - Vital Signs Vital Signs: Vital Signs Temp Pulse Resp BP Pulse Ox 03/24/20 07:00 98.5 F 73 18 160/76 98 03/24/20 02:15 98.1 F 72 20 147/69 98 03/23/20 19:50 98.3 F 67 16 155/75 97 Intake and Output 03/24/20 03/24/20 03/24/20 06:59 14:59 22:59 Intake Total 100 Output Total 400 Balance -300 Intake: Oral 100 Output: Urine 400 Other: Voiding Method Indwelling Catheter On examination patient is awake, slow mentation. Patient laughs for unclear reasons at times. Patient is hallucinating saying "look at my baby laughing". Patient states that the year is 1988. Could not tell the month. When I asked about the president, patient states "I know that Mervat---". Patient states that she is in [place]. Patient's speech is slightly hoarse. Patient mumbles, often makes no sense. Patient could not name knuckles or earlobe. She has some paraphasic errors. She can repeat well. Attention and concentration fund of knowledge is limited. On cranial examination pupils are round and reacting. Visual clifford could not be tested. Face appears symmetric. Tongue protrudes on midline. Hearing is decreased. Shoulder shrug cannot be assessed. On muscle strength testing patient has normal strength in the right upper limb. She did wiggle and move her right leg but did not cooperate. She is left hemiplegic. Left arm worse than left leg. Patient has brisk reflexes on the left with Babinski only on the left. Sensory and cerebellar functions could not be tested because of patient's noncooperation. Patient is wheelchair bound. Abdomen is soft nontender. Chest is clear. S1 and S2 audible. No obvious bruit. She has peripheral edema. Results - Laboratory Findings CBC and BMP: 03/23/20 08:30 03/23/20 16:31 Abnormal Lab Findings: Abnormal Labs 03/22/20 03/22/20 03/22/20 12:19 12:19 12:19 RBC Hgb 10.4 L Hct 32.0 L RDW 16.5 H Lymphocytes # INR 1.2 H Sodium 134 L Potassium 3.0 L Creatinine Glucose POC Glucose (mg/dL) Calcium Magnesium 1.0 L Total Protein 5.3 L Albumin 2.6 L Urine Protein Urine Ketones Ur Leukocyte Esterase Urine WBC 03/22/20 03/23/20 03/23/20 14:10 07:06 08:30 RBC 3.59 L Hgb 9.8 L Hct 30.2 L RDW 16.2 H Lymphocytes # 0.9 L INR Sodium Potassium Creatinine Glucose POC Glucose (mg/dL) 73 L Calcium Magnesium Total Protein Albumin Urine Protein Trace H Urine Ketones 1+ H Ur Leukocyte Esterase Moderate H Urine WBC 22 H 03/23/20 03/24/20 08:30 06:55 RBC Hgb Hct RDW Lymphocytes # INR Sodium 135 L Potassium 2.5 L* Creatinine 0.51 L Glucose 72 L POC Glucose (mg/dL) 221 H Calcium 7.7 L Magnesium Total Protein Albumin Urine Protein Urine Ketones Ur Leukocyte Esterase Urine WBC Assessment and Plan Assessment: * Altered mental status, likely due to delirium. Patient probably has an underlying vascular dementia. 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 * Seizure disorder. Patient had 3 episodes of possible seizure-type spells, but all of them occurred while being transferred from bedside commode to her bed. Uncertain if these were focal seizures, or near syncopal spells or behavioral spells. * History of atrial fibrillation, currently not on anticoagulation. * Recent history of COVID-19 infection in January 2020. * Hypertension * Diabetes, well controlled Plan: * Patient has presented with possible seizure-type spells. We will increase dose of Keppra to 750 mg twice a day. * Treatment of UTI as per IM. * Patient has history of atrial fibrillation, currently not on anticoagulation. Suggest starting anticoagulation, if indicated, and no contraindication. At present patient is in sinus rhythm, on aspirin 81 mg and Lipitor 80 mg. * We will check B12, folate and RPR.
[2020-03-24] MEDS: CITALOPRAM HYDROBROMIDE 20 MG TAB PO SCH (20:18)
[2020-03-24] MEDS: ATORVASTATIN 80 MG TAB PO SCH (20:18)
[2020-03-24] MEDS: levETIRAcetam 250 MG TAB PO SCH (20:19)
[2020-03-24 21:03] LABS: Glucose,Whole Blood 96 mg/dL (75-99)
[2020-03-25] MEDS ORDERED: hydrALAZINE HCL 20 MG/ML 1 ML VIAL IVP STA (05:37)
[2020-03-25 07:01] LABS: Glucose,Whole Blood 81 mg/dL (75-99)
[2020-03-25] MEDS: CARVEDILOL 6.25 MG TAB PO SCH ×2 (07:04→16:18)
[2020-03-25] MEDS: ASPIRIN 81 MG PO SCH (07:04)
[2020-03-25] MEDS: PANTOPRAZOLE 40 MG TABLET PO SCH (07:04)
[2020-03-25] MEDS: INSULIN ASPART (NovoLOG) 100 UNIT/ML VIAL SQ SCH ×4 (07:04→20:46)
[2020-03-25] MEDS: hydrALAZINE HCL 50 MG TAB PO SCH ×2 (07:05→20:45)
[2020-03-25] MEDS: HEPARIN SODIUM,PORCINE 5,000 UNIT/ML 1 ML VIAL SQ SCH ×3 (07:06→23:07)
[2020-03-25] MEDS: levETIRAcetam 250 MG TAB PO SCH ×2 (07:06→20:46)
[2020-03-25] MEDS: LOSARTAN 50 MG TAB PO SCH (07:06)
[2020-03-25] MEDS: SODIUM CHLORIDE 0.9% 1,000 ML IV SCH ×2 (07:07→23:07)
[2020-03-25 11:21] LABS: Glucose,Whole Blood 77 mg/dL (75-99)
[2020-03-25 12:21] LABS: Folate, Serum 3.7 ng/mL
[2020-03-25 16:25] LABS: Glucose,Whole Blood 85 mg/dL (75-99)
--- NOTE | 2020-03-25 18:37 | P.PN ---
Subjective Progress Note Date: 03/25/20 Patient continues to be encephalopathic. Patient is not eating. She is oriented 1. Patient continues to have failure to thrive. Her confusion gets worse at times. Objective - Vital Signs Vital signs: Vital Signs Temp 97.9 F 03/25/20 15:00 Pulse 73 03/25/20 15:00 Resp 20 03/25/20 16:30 BP 133/80 03/25/20 15:00 Pulse Ox 97 03/25/20 15:00 Intake & Output 03/24/20 03/25/20 03/25/20 18:59 06:59 18:59 Intake Total 660 Output Total 300 1350 600 Balance -300 -1350 60 Intake: Intake, IV Titration 120 Amount Sodium Chloride 0.9% 1, 120 000 ml @ 75 mls/hr IV . [id number] [facility] Rx#:[id number] Oral 540 Output: Urine 300 1350 600 Other: Voiding Method Indwelling Catheter Indwelling Catheter Indwelling Catheter - Exam Essentially unchanged as compared to yesterday. - Labs CBC & Chem 7: 03/23/20 08:30 03/23/20 16:31 Labs: Microbiology - Last 24 Hours (Table) 03/22/20 16:17 Blood Culture - Preliminary Blood No Growth after 48 hours Assessment and Plan Assessment: * Altered mental status, likely due to delirium. Patient probably has an underlying vascular dementia. 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 * Seizure disorder. Patient had 3 episodes of possible seizure-type spells, but all of them occurred while being transferred from bedside commode to her bed. Uncertain if these were focal seizures, or near syncopal spells or behavioral spells. * History of atrial fibrillation, currently not on anticoagulation. * Recent history of COVID-19 infection in January 2020. * Hypertension * Diabetes, well controlled Plan: * Patient has presented with possible seizure-type spells. We will increase dose of Keppra to 750 mg twice a day. * Treatment of UTI as per IM. * Patient has history of atrial fibrillation, currently not on anticoagulation. Suggest starting anticoagulation, if indicated, and no contraindication. At present patient is in sinus rhythm, on aspirin 81 mg and Lipitor 80 mg. * B12 236, will start replacement, folate also low 3.7 and RPR nonreactive. * If her mental status continues to be significantly altered as compared to baseline, then consider lumbar puncture, as COVID-19 infection can be associated with encephalitis.
[2020-03-25 20:39] LABS: Glucose,Whole Blood 112 mg/dL (75-99)
[2020-03-25] MEDS: ATORVASTATIN 80 MG TAB PO SCH (20:45)
[2020-03-25] MEDS: CYANOCOBALAMIN-FA-PYRIDOXINE 1 EACH TAB PO SCH (20:45)
[2020-03-25] MEDS: CITALOPRAM HYDROBROMIDE 20 MG TAB PO SCH (20:46)
[2020-03-25] MEDS: CYANOCOBALAMIN 1,000 MCG/ML 1 ML VIAL IM SCH (21:34)
--- NOTE | 2020-03-25 23:04 | P.PN ---
Subjective Progress Note Date: 03/24/20 Principal diagnosis: Altered mental status possible metabolic encephalopathy with infection. Patient is a 64-year-old female with a known history of hypertension, diabetes type 2 [id number], paroxysmal atrial fibrillation currently not on any anticoagulation, history of CVA with left-sided weakness, history of ESBL urinary tract infection, carotid endarterectomy, depression and previous history of smoking was brought to the hospital by EMS along with her due to complaints of altered mental status and failure to thrive. Patient has been declining health and decreased oral intake. Patient has been drinking only liquids Patient was diagnosed with COVID-19 viral infection about 3 months ago. Patient is off oxygen. Patient still having cough without sputum production. No nausea vomiting or abdominal pain or diarrhea. Patient usually ambulates with a walker. Patient was more confused than normal today and was brought to the hospital by EMS. Patient is a poor historian and most of the history was taken from medical records and her at bedside. EKG showed sinus rhythm with short MN. Prolonged QT. Chest x-ray showed cardiomegaly. Laboratory data showed WBC 6.9, hemoglobin 10.4, platelets 228 INR 1.2 Sodium 134 and potassium 3.0 Chloride 100 and BUN 12 and creatinine 0.56 Magnesium level is 1.0 during onset not elevated albumin 2.6 Urinalysis showed yellow with 1+ ketones moderate leukocyte esterase and 22 WBCs 03/23/2020 Patient is currently lying in the bed comfortably. Patient is more awake and oriented today. POTASSIUM level is 2.5 which is being replaced. Patient is being continued on antibiotics off ceftriaxone for urinary tract infection. Urine culture showed Jyoti albicans. No leukocytosis. Patient has been afebrile. PT OT was consulted. Patient is wheelchair-bound at baseline. Otherwise denied any complaints of chest pain or shortness breath.. 03/24/2020 Patient is currently lying in the bed comfortably but more confused compared to yesterday. Patient has been having on and off episodes of confusion as per family. EEG was ordered and rule out any seizures. Neurology was consulted as well. Keppra dose increased to 750 mg twice daily. Otherwise patient is having decrease of oral intake. Potassium was replaced. Current medications reviewed. Objective - Vital Signs Vital signs: Vital Signs Temp 97.8 F 03/24/20 15:00 Pulse 75 03/24/20 15:00 Resp 18 03/24/20 15:00 BP 142/74 03/24/20 15:00 Pulse Ox 95 03/24/20 15:00 Intake & Output 03/24/20 03/24/20 03/25/20 06:59 18:59 06:59 Intake Total 250 Output Total 400 300 Balance -150 -300 Intake: Intake, IV Titration 150 Amount Sodium Chloride 0.9% 1, 150 000 ml @ 75 mls/hr IV . [id number] [facility] Rx#:[id number] Oral 100 Output: Urine 400 300 Other: Voiding Method Indwelling Catheter - Exam PHYSICAL EXAMINATION: Patient is lying in the bed comfortably, no acute distress, awake alert and or iented 2-3. drowsy and lethrgic. HEENT: Normocephalic. Neck is supple. Pupils reactive. Nostrils clear. Oral cavity is moist. Ears reveal no drainage. Neck reveals no JVD, carotid bruits, or thyromegaly. CHEST EXAMINATION: Trachea is central. Symmetrical expansion. Lung clifford clear to auscultation and percussion. CARDIAC: Normal S1, S2 with no gallops. No murmurs ABDOMEN: Soft. Bowel sounds normal. No organomegaly. No abdominal bruits. Extremities: reveal no edema. No clubbing or cyanosis lethargc, left sided weakness. Skin: No rash or skin lesions. Psychiatric: Cooperative. could not be assesed completely Musculoskeletal: No joint swelling or deformity. - Labs CBC & Chem 7: 03/23/20 08:30 03/23/20 16:31 Labs: Abnormal Lab Results - Last 24 Hours (Table) 03/24/20 03/24/20 Range/Units 06:55 17:06 POC Glucose (mg/dL) 221 H 122 H (75-99) mg/dL Microbiology - Last 24 Hours (Table) 03/22/20 16:17 Blood Culture - Preliminary Blood No Growth after 48 hours 03/22/20 14:10 Urine Culture - Final Urine,Voided Jyoti albicans Assessment and Plan Assessment: Altered mental status possible metabolic encephalopathy with infection. Acute urinary tract infection Severe hypokalemia and hypomagnesemia Hypovolemic hyponatremia Vascular dementia. History of seizure disorder Failure to thrive Recent COVID-19 viral infection 2 months ago. Currently on room air Diabetes type 2 [id number] History of CVA with left-sided weakness. Hypertension Paroxysmal atrial fibrillation currently not on any anticoagulation History of ESBL urinary tract infection Depression Previous history of smoking Morbid obesity with BMI 41.2 Plan: Patient will be continued on gentle hydration replace potassium and magnesium. Continue with antibiotics in the form of ceftriaxone for urinary tract infe ction. Continue to encourage oral intake and PT OT will be consulted. Continue with home medications and further recommendations based on the clinical course. Prognosis guarded. Discussed with her at bedside in detail. Time with Patient: Greater than 30
--- NOTE | 2020-03-25 23:12 | P.PN ---
Subjective Progress Note Date: 03/25/20 Principal diagnosis: Altered mental status possible metabolic encephalopathy with infection. Patient is a 64-year-old female with a known history of hypertension, diabetes type 2 [id number], paroxysmal atrial fibrillation currently not on any anticoagulation, history of CVA with left-sided weakness, history of ESBL urinary tract infection, carotid endarterectomy, depression and previous history of smoking was brought to the hospital by EMS along with her due to complaints of altered mental status and failure to thrive. Patient has been declining health and decreased oral intake. Patient has been drinking only liquids Patient was diagnosed with COVID-19 viral infection about 3 months ago. Patient is off oxygen. Patient still having cough without sputum production. No nausea vomiting or abdominal pain or diarrhea. Patient usually ambulates with a walker. Patient was more confused than normal today and was brought to the hospital by EMS. Patient is a poor historian and most of the history was taken from medical records and her at bedside. EKG showed sinus rhythm with short NH. Prolonged QT. Chest x-ray showed cardiomegaly. Laboratory data showed WBC 6.9, hemoglobin 10.4, platelets 228 INR 1.2 Sodium 134 and potassium 3.0 Chloride 100 and BUN 12 and creatinine 0.56 Magnesium level is 1.0 during onset not elevated albumin 2.6 Urinalysis showed yellow with 1+ ketones moderate leukocyte esterase and 22 WBCs 03/23/2020 Patient is currently lying in the bed comfortably. Patient is more awake and oriented today. POTASSIUM level is 2.5 which is being replaced. Patient is being continued on antibiotics off ceftriaxone for urinary tract infection. Urine culture showed Jyoti albicans. No leukocytosis. Patient has been afebrile. PT OT was consulted. Patient is wheelchair-bound at baseline. Otherwise denied any complaints of chest pain or shortness breath.. 03/24/2020 Patient is currently lying in the bed comfortably but more confused compared to yesterday. Patient has been having on and off episodes of confusion as per family. EEG was ordered and rule out any seizures. Neurology was consulted as well. Keppra dose increased to 750 mg twice daily. Otherwise patient is having decrease of oral intake. Potassium was replaced. 03/25/2020 Patient still is confused. Otherwise patient has been afebrile. No nausea vomiting or diarrhea. Patient does have decreased oral intake. Continued on Keppra dose. Neurology is considering possible COVID-19 later encephalitis. Patient continues to decline her mental status. We will discuss with her caregiver regarding previous anticoagulation and restart if not contraindicated. Current medications reviewed. Objective - Vital Signs Vital signs: Vital Signs Temp 97.6 F 03/25/20 18:52 Pulse 67 03/25/20 18:52 Resp 20 03/25/20 19:35 BP 171/76 03/25/20 18:52 Pulse Ox 97 03/25/20 18:52 Intake & Output 03/25/20 03/25/20 03/26/20 06:59 18:59 06:59 Intake Total 660 Output Total 1350 600 Balance -1350 60 Intake: Intake, IV Titration 120 Amount Sodium Chloride 0.9% 1, 120 000 ml @ 75 mls/hr IV . [id number] BRODY Rx#:[id number] Oral 540 Output: Urine 1350 600 Other: Voiding Method Indwelling Catheter Indwelling Catheter - Exam PHYSICAL EXAMINATION: Patient is lying in the bed comfortably, no acute distress, awake alert and oriented x1. confused. HEENT: Normocephalic. Neck is supple. Pupils reactive. Nostrils clear. Oral cavity is moist. Ears reveal no drainage. Neck reveals no JVD, carotid bruits, or thyromegaly. CHEST EXAMINATION: Trachea is central. Symmetrical expansion. Lung clifford clear to auscultation and percussion. CARDIAC: Normal S1, S2 with no gallops. No murmurs ABDOMEN: Soft. Bowel sounds normal. No organomegaly. No abdominal bruits. Extremities: reveal no edema. No clubbing or cyanosis lethargc, left sided weakness. Skin: No rash or skin lesions. Psychiatric: Cooperative. could not be assesed completely Musculoskeletal: No joint swelling or deformity. - Labs CBC & Chem 7: 03/23/20 08:30 03/23/20 16:31 Labs: Abnormal Lab Results - Last 24 Hours (Table) 03/25/20 Range/Units 20:38 POC Glucose (mg/dL) 112 H (75-99) mg/dL Microbiology - Last 24 Hours (Table) 03/22/20 16:17 Blood Culture - Preliminary Blood No Growth after 72 hours Assessment and Plan Assessment: Altered mental status possible metabolic encephalopathy with infection. Acute urinary tract infection Severe hypokalemia and hypomagnesemia Hypovolemic hyponatremia Vascular dementia. History of seizure disorder Failure to thrive Recent COVID-19 viral infection 2 months ago. Currently on room air Diabetes type 2 [id number] History of CVA with left-sided weakness. Hypertension Paroxysmal atrial fibrillation currently not on any anticoagulation History of ESBL urinary tract infection Depression Previous history of smoking Morbid obesity with BMI 41.2 Plan: Patient will be continued on gentle hydration replace potassium and magnesium. Continue with antibiotics in the form of ceftriaxone for urinary tract infection. Keppra dose was increased due to possible seizure episodes. Patient was started on B12 supplementation. B12 level is low normal level. Neurology is following. Continue to encourage oral intake and PT OT will be consulted. Continue with home medications and further recommendations based on the clinical course. Prognosis guarded. Discussed with her at bedside in detail. Time with Patient: Greater than 30
[2020-03-26 07:28] LABS: Glucose,Whole Blood 84 mg/dL (75-99)
[2020-03-26] MEDS: INSULIN ASPART (NovoLOG) 100 UNIT/ML VIAL SQ SCH ×4 (07:37→20:18)
[2020-03-26 07:39] LABS: Anisocytosis Slight; Basophils % (A) 1 %; Eosinophils # (A) 0.1 k/uL (0-0.7); Eosinophils % (A) 3 %; HCT 25.8 % (34.0-46.0); HGB 8.5 gm/dL (11.4-16.0); Hypochromasia Slight; Lymphocytes # (A) 1.7 k/uL (1.0-4.8); Lymphocytes % (A) 42 %; MCH 27.1 pg (25.0-35.0); MCHC 32.8 g/dL (31.0-37.0); MCV 82.5 fL (80.0-100.0); Mean Platelet Volume 9.2; Monocytes # (A) 0.3 k/uL (0-1.0); Monocytes % (A) 8 %; Neutrophils # (A) 1.9 k/uL (1.3-7.7); Neutrophils % (A) 45 %; Platelet Count 185 k/uL (150-450); RBC 3.13 m/uL (3.80-5.40); RDW 16.4 % (11.5-15.5); WBC 4.1 k/uL (3.8-10.6)
[2020-03-26 08:30] LABS: African American GFR (CKD) >90 (>60 ml/min/1.73 sqM); Anion Gap 3 mmol/L; Blood Urea Nitrogen 9 mg/dL (7-17); Calcium 8.3 mg/dL (8.4-10.2); Carbon Dioxide 24 mmol/L (22-30); Chloride 109 mmol/L (98-107); Glucose 69 mg/dL (74-99); Non-African American GFR(CKD) >90 (>60 ml/min/1.73 sqM); Potassium 3.4 mmol/L (3.5-5.1); Sodium 136 mmol/L (137-145)
[2020-03-26] MEDS: HEPARIN SODIUM,PORCINE 5,000 UNIT/ML 1 ML VIAL SQ SCH ×3 (08:36→23:52)
[2020-03-26] MEDS: CYANOCOBALAMIN 1,000 MCG/ML 1 ML VIAL IM SCH (08:37)
--- NOTE | 2020-03-26 11:12 | P.CONS ---
History of Present Illness - Reason for Consult Consult date: 03/26/20 - History of Present Illness This is a 64-year-old pleasant female being seen by the wound care center on [address] for nonhealing ulceration to the coccyx. Patient has been seen on multiple occasions during her hospital visit with the similar ulceration. The first visit the pressure ulcer with only a stage I at this time it has progressed to a stage III pressure ulcer. There is no bone exposed. Patient has been receiving wound care at home with her daughter at that time they were utilizing Santyl. Unsure of any wound care is being offered at this time. Patient's past medical history significant for CVA, diabetes and hypertension. Patient appears to be bedbound mostly. She was sleepy unable to answer q uestions appropriately did respond to physical touch. Review of Systems Review Of Systems: Constitutional: No fever, no chills, no night sweats. No weight change. No weakness, fatigue or lethargy. No daytime sleepiness. Integumentary:reports wounds, no lesions. No rash or pruritus. No unusual bruising. No change in hair or nails. Past Medical History Past Medical History: Atrial Fibrillation, CVA/TIA, Diabetes Mellitus, Hypertension Additional Past Medical History / Comment(s): cva x3- lt sided weakness, pt states she is unable to walk and is bedbound History of Any Multi-Drug Resistant Organisms: ESBL, MRSA Year Discovered:: 02/28/20 ESBL MDRO Source:: URINE Past Surgical History: Tubal Ligation Additional Past Surgical History / Comment(s): CAROTID ENDART TO CLEAN OUT NECK ARTERY LEFT; quality assurance monitor final chip placed Past Anesthesia/Blood Transfusion Reactions: No Reported Reaction Past Psychological History: Depression Smoking Status: Former smoker Past Alcohol Use History: None Reported Past Drug Use History: None Reported - Past Family History Brother(s) Family Medical History: No Reported History Sister(s) Family Medical History: Diabetes Mellitus Additional Family Medical History / Comment(s): RENAL FAILURE, ABCESSES Mother Additional Family Medical History / Comment(s): Brain Aneurism. Father Family Medical History: Diabetes Mellitus Medications and Allergies Home Medications Medication Instructions Recorded Confirmed Type metFORMIN HCL [Glucophage] 500 mg PO AC-BID 05/30/16 03/22/20 History Atorvastatin [Lipitor] 80 mg PO HS 03/22/19 03/22/20 History Losartan Potassium 100 mg PO DAILY 03/22/19 03/22/20 History Pantoprazole [Protonix] 40 mg PO DAILY 03/22/19 03/22/20 History Citalopram Hydrobromide [CeleXA] 40 mg PO HS 07/06/19 03/22/20 History Acetaminophen Tab [Tylenol] 650 mg PO Q6HR PRN tab 11/12/19 03/22/20 Rx Carvedilol [Coreg] 6.25 mg PO BID-W/MEALS 30 Days #60 01/20/20 03/22/20 Rx tab Cyclobenzaprine HCl 10 mg PO HS 02/04/20 03/22/20 History hydrALAZINE HCL [Apresoline] 50 mg PO BID 03/05/20 03/22/20 History levETIRAcetam [Keppra] 500 mg PO Q12HR 03/05/20 03/22/20 History Aspirin EC [Ecotrin Low Dose] 81 mg PO DAILY 03/22/20 03/22/20 History Allergies Allergy/AdvReac Type Severity Reaction Status Date / Time lorazepam [From Ativan] Allergy Unknown Verified 03/22/20 19:53 Physical Exam Vitals: Vital Signs Temp Pulse Resp BP Pulse Ox 03/26/20 08:00 63 16 03/26/20 07:20 97.9 F 63 16 150/68 98 03/26/20 02:35 98.0 F 68 129/68 95 03/25/20 19:35 20 03/25/20 18:52 97.6 F 67 171/76 97 03/25/20 16:30 20 03/25/20 15:00 97.9 F 73 18 133/80 97 Intake and Output 03/25/20 03/26/20 03/26/20 22:59 06:59 14:59 Intake Total 540 Output Total 600 150 Balance -60 -150 Intake: Oral 540 Output: Urine 600 150 Other: Voiding Method Indwelling Catheter Indwelling Catheter Physical exam: General Appearance: Alert, cooperative, no distress, appears stated age. Skin: Midline stage III coccyx ulceration. Moderate granulation seen within wound bed minimal slough, no bone exposure or palpated. Undermining noted from 6:00 to 8 a clotted approximately 0.5 cm. Ulceration measuring approximate 3 x 3 x 2 cm. Wound shows dry scaly, no Rudor Pallor ecchymosis noted all other Skin color, texture, tugor normal, no rashes or lesions. Neurologic: Alert oriented x3 Results CBC & Chem 7: 03/26/20 06:30 03/26/20 06:30 Labs: Abnormal Lab Results - Last 24 Hours (Table) 03/25/20 03/26/20 03/26/20 Range/Units 20:38 06:30 06:30 RBC 3.13 L (3.80-5.40) m/uL Hgb 8.5 L (11.4-16.0) gm/dL Hct 25.8 L (34.0-46.0) % RDW 16.4 H (11.5-15.5) % Sodium 136 L (137-145) mmol/L Potassium 3.4 L (3.5-5.1) mmol/L Chloride 109 H (98-107) mmol/L Glucose 69 L (74-99) mg/dL POC Glucose (mg/dL) 112 H (75-99) mg/dL Calcium 8.3 L (8.4-10.2) mg/dL Microbiology - Last 24 Hours (Table) 03/22/20 16:17 Blood Culture - Preliminary Blood No Growth after 72 hours Assessment and Plan (1) Pressure ulcer of sacral region, stage 3 Current Visit: No Status: Acute Code(s): L89.153 - PRESSURE ULCER OF SACRAL REGION, STAGE 3 SNOMED Code(s): 262451934 (2) Type 2 diabetes mellitus with other skin ulcer Current Visit: No Status: Acute Code(s): E11.622 - TYPE 2 DIABETES MELLITUS WITH OTHER SKIN ULCER; L98.499 - NON-PRESSURE CHRONIC ULCER OF SKIN OF SITES W UNSP SEVERITY SNOMED Code(s): 781514260 Plan: Apply moistened observed to silver, dry gauze and foam border gauze. Change Monday. Turn every 2 hours. Assess the surface algorithm for appropriate surface. Reviewed nutrition to increase protein. Patient may benefit from outpatient wound care. This was discussed previously in the past at that time was declined. Thank you kindly for the consultation any questions please contact the wound care center DNP note has been reviewed and discussed with Dr. Ruvalcaba and the impression and plan of care has been directed as dictated.
[2020-03-26] MEDS: hydrALAZINE HCL 50 MG TAB PO SCH ×2 (11:20→21:49)
[2020-03-26] MEDS: CARVEDILOL 6.25 MG TAB PO SCH ×2 (11:20→16:57)
[2020-03-26] MEDS: levETIRAcetam 250 MG TAB PO SCH ×2 (11:20→21:50)
[2020-03-26] MEDS: CYANOCOBALAMIN-FA-PYRIDOXINE 1 EACH TAB PO SCH (11:20)
[2020-03-26] MEDS: LOSARTAN 50 MG TAB PO SCH (11:20)
[2020-03-26] MEDS: PANTOPRAZOLE 40 MG TABLET PO SCH (11:21)
[2020-03-26] MEDS: ASPIRIN 81 MG PO SCH (11:21)
[2020-03-26 11:50] LABS: Glucose,Whole Blood 75 mg/dL (75-99)
[2020-03-26 17:04] LABS: Glucose,Whole Blood 85 mg/dL (75-99)
[2020-03-26] MEDS: SODIUM CHLORIDE 0.9% 1,000 ML IV SCH ×2 (19:43→23:53)
[2020-03-26 20:10] LABS: Glucose,Whole Blood 106 mg/dL (75-99)
--- NOTE | 2020-03-26 20:32 | P.PN ---
Subjective Progress Note Date: 03/26/20 Patient continues to be encephalopathic. Patient is not eating. She is oriented 1. Patient continues to have failure to thrive. Her confusion gets worse at times. Patient is not complaining of any headache or pain. Family has agreed for lumbar puncture. Patient has to be reminded to swallow. Objective - Vital Signs Vital signs: Vital Signs Temp 98.0 F 03/26/20 18:54 Pulse 63 03/26/20 18:54 Resp 16 03/26/20 15:51 BP 102/53 03/26/20 18:54 Pulse Ox 93 L 03/26/20 18:54 Intake & Output 03/26/20 03/26/20 03/27/20 06:59 18:59 06:59 Intake Total 200 Output Total 150 Balance -150 200 Weight 108.862 kg Intake: Oral 200 Output: Urine 150 Other: Voiding Method Indwelling Catheter - Exam Patient is somnolent, encephalopathic. Not cooperative with exam. - Labs CBC & Chem 7: 03/26/20 06:30 03/26/20 06:30 Labs: Abnormal Lab Results - Last 24 Hours (Table) 03/25/20 03/26/20 03/26/20 Range/Units 20:38 06:30 06:30 RBC 3.13 L (3.80-5.40) m/uL Hgb 8.5 L (11.4-16.0) gm/dL Hct 25.8 L (34.0-46.0) % RDW 16.4 H (11.5-15.5) % Sodium 136 L (137-145) mmol/L Potassium 3.4 L (3.5-5.1) mmol/L Chloride 109 H (98-107) mmol/L Glucose 69 L (74-99) mg/dL POC Glucose (mg/dL) 112 H (75-99) mg/dL Calcium 8.3 L (8.4-10.2) mg/dL 03/26/20 Range/Units 20:09 RBC (3.80-5.40) m/uL Hgb (11.4-16.0) gm/dL Hct (34.0-46.0) % RDW (11.5-15.5) % Sodium (137-145) mmol/L Potassium (3.5-5.1) mmol/L Chloride (98-107) mmol/L Glucose (74-99) mg/dL POC Glucose (mg/dL) 106 H (75-99) mg/dL Calcium (8.4-10.2) mg/dL Microbiology - Last 24 Hours (Table) 03/22/20 16:17 Blood Culture - Preliminary Blood No Growth after 96 hours Assessment and Plan Assessment: * Altered mental status, likely due to delirium. Patient probably has an underlying vascular dementia. 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 * Seizure disorder. Patient had 3 episodes of possible seizure-type spells, but all of them occurred while being transferred from bedside commode to her bed. Uncertain if these were focal seizures, or near syncopal spells or behavioral spells. * History of atrial fibrillation, currently not on anticoagulation. * Recent history of COVID-19 infection in January 2020. * Hypertension * Diabetes, well controlled Plan: * Continue Keppra 750 mg twice a day. * Treatment of UTI as per IM. * Patient has history of atrial fibrillation, currently not on anticoagulation. Suggest starting anticoagulation, if indicated, and no contraindication. At present patient is in sinus rhythm, on aspirin 81 mg and Lipitor 80 mg. * B12 236, currently started on B12 and folate replacement, folate also low 3.7 and RPR nonreactive. * If her mental status continues to be significantly altered as compared to baseline, then consider lumbar puncture, as COVID-19 infection can be associated with encephalitis.
[2020-03-26] MEDS: ATORVASTATIN 80 MG TAB PO SCH (21:49)
[2020-03-26] MEDS: CITALOPRAM HYDROBROMIDE 20 MG TAB PO SCH (21:49)
[2020-03-27 06:59] LABS: Glucose,Whole Blood 88 mg/dL (75-99)
[2020-03-27] MEDS: INSULIN ASPART (NovoLOG) 100 UNIT/ML VIAL SQ SCH ×4 (08:17→20:22)
[2020-03-27] MEDS: CARVEDILOL 6.25 MG TAB PO SCH ×2 (08:17→16:59)
[2020-03-27] MEDS: ASPIRIN 81 MG PO SCH (08:17)
[2020-03-27] MEDS: PANTOPRAZOLE 40 MG TABLET PO SCH (08:17)
[2020-03-27] MEDS: HEPARIN SODIUM,PORCINE 5,000 UNIT/ML 1 ML VIAL SQ SCH ×3 (08:17→23:28)
[2020-03-27] MEDS: LOSARTAN 50 MG TAB PO SCH (08:17)
[2020-03-27] MEDS: hydrALAZINE HCL 50 MG TAB PO SCH ×2 (08:17→20:22)
[2020-03-27] MEDS: CYANOCOBALAMIN 1,000 MCG/ML 1 ML VIAL IM SCH (08:18)
[2020-03-27] MEDS: CYANOCOBALAMIN-FA-PYRIDOXINE 1 EACH TAB PO SCH (08:18)
[2020-03-27] MEDS: levETIRAcetam 250 MG TAB PO SCH ×2 (08:18→20:22)
[2020-03-27 11:56] LABS: Glucose,Whole Blood 92 mg/dL (75-99)
--- NOTE | 2020-03-27 11:59 | P.PN ---
Subjective Progress Note Date: 03/27/20 Patient continues to be encephalopathic. Patient denies numbness tingling, denies headache. Denies visual symptoms. Patient's daughter had visited the patient, who is noticing significant mental status changes. She is oriented 1. Patient continues to have failure to thrive. Her confusion gets worse at times. Family has agreed for lumbar puncture. Objective - Vital Signs Vital signs: Vital Signs Temp 98 F 03/27/20 07:28 Pulse 62 03/27/20 08:00 Resp 16 03/27/20 08:00 BP 162/69 03/27/20 07:28 Pulse Ox 95 03/27/20 07:28 Intake & Output 03/26/20 03/27/20 03/27/20 18:59 06:59 18:59 Intake Total 200 200 Output Total 475 Balance 200 -475 200 Weight 108.862 kg Intake: Oral 200 200 Output: Urine 475 Other: Voiding Method Indwelling Catheter Indwelling Catheter Indwelling Catheter - Exam Patient is more alert today. Patient knows [facility] name, [facility] She knows name of the current president. Patient has left hemiparesis. - Labs CBC & Chem 7: 03/26/20 06:30 03/26/20 06:30 Labs: Abnormal Lab Results - Last 24 Hours (Table) 03/26/20 Range/Units 20:09 POC Glucose (mg/dL) 106 H (75-99) mg/dL Microbiology - Last 24 Hours (Table) 03/22/20 16:17 Blood Culture - Preliminary Blood No Growth after 96 hours Assessment and Plan Assessment: * Altered mental status, likely due to delirium. Rule out intracranial process. Rule out vascular dementia. 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 * Seizure disorder. Patient had 3 episodes of possible seizure-type spells, but all of them occurred while being transferred from bedside commode to her bed. Uncertain if these were focal seizures, or near syncopal spells or behavioral spells. * History of atrial fibrillation, currently not on anticoagulation. * Recent history of COVID-19 infection in January 2020. * Hypertension * Diabetes, well controlled Plan: * Continue Keppra 750 mg twice a day. * Treatment of UTI as per IM. * Patient has history of atrial fibrillation, currently not on anticoagulation. Suggest starting anticoagulation, if indicated, and no contraindication. At present patient is in sinus rhythm, on aspirin 81 mg and Lipitor 80 mg. * B12 236, currently started on B12 and folate replacement, folate also low 3.7 and RPR nonreactive. * Lumbar puncture by interventional radiology, to rule out any intracranial infectious process. * Neurology coverage not available on the weekend. Dr. Vallejo will resume neurology service from Monday.
--- NOTE | 2020-03-27 15:10 | FL ---
EXAMINATION TYPE: FL guided lumbar puncture LP DATE OF EXAM: 03/27/2020 COMPARISON: NONE HISTORY: Encephalopathy TECHNIQUE: Fluoroscopy. FINDINGS attempted lumbar puncture was unsuccessful given difficulty in patient positioning. Patient could not follow directions. Fluoroscopic time was 4 minutes 15 seconds. Standard sterile technique w as utilized as well as appropriate local anesthesia with 1% lidocaine. Multiple attempts were made af ter placing a spinal needle into the thecal sac which proved unsuccessful. IMPRESSION: As Above.
[2020-03-27 16:55] LABS: Glucose,Whole Blood 102 mg/dL (75-99)
[2020-03-27 20:17] LABS: Glucose,Whole Blood 104 mg/dL (75-99)
[2020-03-27] MEDS: CITALOPRAM HYDROBROMIDE 20 MG TAB PO SCH (20:21)
[2020-03-27] MEDS: ATORVASTATIN 80 MG TAB PO SCH (20:22)
[2020-03-27] MEDS: SODIUM CHLORIDE 0.9% 1,000 ML IV SCH (20:23)
[2020-03-28] MEDS: SODIUM CHLORIDE 0.9% 1,000 ML IV SCH ×2 (04:49→16:24)
[2020-03-28 07:49] LABS: Glucose,Whole Blood 88 mg/dL (75-99)
[2020-03-28] MEDS: INSULIN ASPART (NovoLOG) 100 UNIT/ML VIAL SQ SCH ×4 (08:30→20:27)
[2020-03-28] MEDS: hydrALAZINE HCL 50 MG TAB PO SCH ×2 (08:39→20:27)
[2020-03-28] MEDS: ASPIRIN 81 MG PO SCH (08:39)
[2020-03-28] MEDS: CYANOCOBALAMIN-FA-PYRIDOXINE 1 EACH TAB PO SCH (08:39)
[2020-03-28] MEDS: PANTOPRAZOLE 40 MG TABLET PO SCH (08:39)
[2020-03-28] MEDS: LOSARTAN 50 MG TAB PO SCH (08:39)
[2020-03-28] MEDS: HEPARIN SODIUM,PORCINE 5,000 UNIT/ML 1 ML VIAL SQ SCH ×4 (08:39→23:32)
[2020-03-28] MEDS: levETIRAcetam 250 MG TAB PO SCH ×2 (08:39→20:27)
[2020-03-28] MEDS: CARVEDILOL 6.25 MG TAB PO SCH ×2 (08:40→16:19)
--- NOTE | 2020-03-28 11:00 | P.PN ---
Subjective Progress Note Date: 03/28/20 per RN the patient continues to be confused. Attempted lumbar puncture of yesterday, was unsuccessful. Objective - Vital Signs Vital signs: Vital Signs Temp 97.7 F 03/28/20 07:00 Pulse 61 03/28/20 07:00 Resp 18 03/28/20 07:00 BP 154/77 03/28/20 07:00 Pulse Ox 97 03/28/20 07:00 Intake & Output 03/27/20 03/28/20 03/28/20 18:59 06:59 18:59 Intake Total 200 Output Total 300 Balance 200 -300 Weight 108.862 kg Intake: Oral 200 Output: Urine 300 Other: Voiding Method Indwelling Catheter Indwelling Catheter Indwelling Catheter # Voids 1 # Bowel Movements 1 - Exam Gen.: The patient is reclining in the bed. She is in no acute distress. Mental status: The patient is able to tell me her name and her date of . She reports her age to be "14". She states that the current year is "1972". She is oriented to her location. She tells me she has 4 children. These children are "between the ages of 14 and 16". When asked her age again, the patient states that she is "old, in my 40s". Cranial nerves: Grossly intact Motor examination was not performed - Labs CBC & Chem 7: 03/26/20 06:30 03/26/20 06:30 Labs: Abnormal Lab Results - Last 24 Hours (Table) 03/27/20 03/27/20 Range/Units 16:53 20:16 POC Glucose (mg/dL) 102 H 104 H (75-99) mg/dL Microbiology - Last 24 Hours (Table) 03/22/20 16:17 Blood Culture - Preliminary Blood No Growth after 120 hours Assessment and Plan Assessment: 1. Mental status changes-possible encephalitis 2. Failure to thrive 3. Possible underlying dementia Plan: 1. We will ask anesthesia to attempt lumbar puncture today I did speak with the anesthesiologist, he will attempt a lumbar puncture. Time with Patient: Less than 30 (spent 25 minutes with patient via teleneurology)
[2020-03-28 11:42] LABS: Glucose,Whole Blood 102 mg/dL (75-99)
--- NOTE | 2020-03-28 12:45 | P.PN ---
Progress Note - Text Anesthesia was consulted to perform a lumbar puncture by Dr. Worthington.. The chart was reviewed. The patient is oriented to person. Informed consent was obtained by the nursing staff from the family. . Procedure: The patient was placed in the sitting position. The low back was then sterilely prepped and draped. Then [1 ]mL of lidocaine 1% was injected subcutaneously at the L3-L4 interspace. Then a 20 gauge spinal needle was placed into the subarachnoid space at [ L3-L4] without difficulty. Then approximately [8-9 ]mL's of[ clear colorless]spinal fluid was obtained in 4 tubes. [ Approximately 2 mL]/tube. The patient tolerated the procedure well. There were no complications. Instructions were then given to the nursing staff. Patient was to be at bed rest for the next 2 hours. Patient is encouraged to increase oral fluids. Patient may take previously prescribed pain meds if needed.
[2020-03-28 13:38] LABS: Glucose,CSF 45 mg/dL (40-70); Total Protein,CSF 64 mg/dL (12-60)
[2020-03-28 14:34] LABS: Appearance,CSF Clear; CSF Tube Number 4; CSF Tube Volume 2.5; Nucleated Cells, CSF 0 u/L (0-5); Red Blood Cell,CSF 650 u/L (0-10)
[2020-03-28 14:35] LABS: Red Blood Cell, CSF Crenated 3 %; Red Blood Cell, CSF Fresh 97 %
[2020-03-28 16:45] LABS: Glucose,Whole Blood 94 mg/dL (75-99)
[2020-03-28] MEDS: ACETAMINOPHEN TAB 325 MG TAB PO PRN (18:06)
[2020-03-28 20:24] LABS: Glucose,Whole Blood 94 mg/dL (75-99)
[2020-03-28] MEDS: CITALOPRAM HYDROBROMIDE 20 MG TAB PO SCH (20:26)
[2020-03-28] MEDS: ATORVASTATIN 80 MG TAB PO SCH (20:26)
--- NOTE | 2020-03-28 23:38 | P.PN ---
Subjective Progress Note Date: 03/26/20 Principal diagnosis: Altered mental status possible metabolic encephalopathy with infection. Patient is a 64-year-old female with a known history of hypertension, diabetes type 2 [id number], paroxysmal atrial fibrillation currently not on any anticoagulation, history of CVA with left-sided weakness, history of ESBL urinary tract infection, carotid endarterectomy, depression and previous history of smoking was brought to the hospital by EMS along with her due to complaints of altered mental status and failure to thrive. Patient has been declining health and decreased oral intake. Patient has been drinking only liquids Patient was diagnosed with COVID-19 viral infection about 3 months ago. Patient is off oxygen. Patient still having cough without sputum production. No nausea vomiting or abdominal pain or diarrhea. Patient usually ambulates with a walker. Patient was more confused than normal today and was brought to the hospital by EMS. Patient is a poor historian and most of the history was taken from medical records and her at bedside. EKG showed sinus rhythm with short [place]. Prolonged QT. Chest x-ray showed cardiomegaly. Laboratory data showed WBC 6.9, hemoglobin 10.4, platelets 228 INR 1.2 Sodium 134 and potassium 3.0 Chloride 100 and BUN 12 and creatinine 0.56 Magnesium level is 1.0 during onset not elevated albumin 2.6 Urinalysis showed yellow with 1+ ketones moderate leukocyte esterase and 22 WBCs 03/23/2020 Patient is currently lying in the bed comfortably. Patient is more awake and oriented today. POTASSIUM level is 2.5 which is being replaced. Patient is being continued on antibiotics off ceftriaxone for urinary tract infection. Urine culture showed Jyoti albicans. No leukocytosis. Patient has been afebrile. PT OT was consulted. Patient is wheelchair-bound at baseline. Otherwise denied any complaints of chest pain or shortness breath.. 03/24/2020 Patient is currently lying in the bed comfortably but more confused compared to yesterday. Patient has been having on and off episodes of confusion as per family. EEG was ordered and rule out any seizures. Neurology was consulted as well. Keppra dose increased to 750 mg twice daily. Otherwise patient is having decrease of oral intake. Potassium was replaced. 03/25/2020 Patient still is confused. Otherwise patient has been afebrile. No nausea vomiting or diarrhea. Patient does have decreased oral intake. Continued on Keppra dose. Neurology is considering possible COVID-19 later encephalitis. Patient continues to decline her mental status. We will discuss with her caregiver regarding previous anticoagulation and restart if not contraindicated. Patient continues to be confused and encephalopathic. Not eating well with. Denied any complaints of headache. No chest pain or shortness of breath. Patient is being continued on IV gentle hydration. Family agreeable for lumbar puncture. Neurology is following. Patient has been afebrile. Laboratory data showed WBC 4.1, hemoglobin 8.5 RDW 16.4, sodium 136, potassium 3.4, chloride 109 BUN 9 and creatinine 0.57 Current medications reviewed. Patient continues to be encephalopathic. Patient is not eating. She is oriented 1. Patient continues to have failure to thrive. Her confusion gets worse at times. Patient is not complaining of any headache or pain. Family has agreed for lumbar puncture. Patient has to be reminded to swallow. Objective - Vital Signs Vital signs: Vital Signs Temp 97.9 F 03/26/20 07:20 Pulse 63 03/26/20 08:00 Resp 16 03/26/20 08:00 BP 150/68 03/26/20 07:20 Pulse Ox 98 03/26/20 07:20 Intake & Output 03/25/20 03/26/20 03/26/20 18:59 06:59 18:59 Intake Total 660 200 Output Total 600 150 Balance 60 -150 200 Intake: Intake, IV Titration 120 Amount Sodium Chloride 0.9% 1, 120 000 ml @ 75 mls/hr IV . [id number] [facility] Rx#:[id number] Oral 540 200 Output: Urine 600 150 Other: Voiding Method Indwelling Catheter Indwelling Catheter - Exam PHYSICAL EXAMINATION: Patient is lying in the bed comfortably, no acute distress, awake alert and oriented x1. confused. HEENT: Normocephalic. Neck is supple. Pupils reactive. Nostrils clear. Oral cavity is moist. Ears reveal no drainage. Neck reveals no JVD, carotid bruits, or thyromegaly. CHEST EXAMINATION: Trachea is central. Symmetrical expansion. Lung clifford clear to auscultation and percussion. CARDIAC: Normal S1, S2 with no gallops. No murmurs ABDOMEN: Soft. Bowel sounds normal. No organomegaly. No abdominal bruits. Extremities: reveal no edema. No clubbing or cyanosis lethargc, left sided weakness. Skin: No rash or skin lesions. Psychiatric: Cooperative. could not be assesed completely Musculoskeletal: No joint swelling or deformity. - Labs CBC & Chem 7: 03/26/20 06:30 03/26/20 06:30 Labs: Abnormal Lab Results - Last 24 Hours (Table) 03/25/20 03/26/20 03/26/20 Range/Units 20:38 06:30 06:30 RBC 3.13 L (3.80-5.40) m/uL Hgb 8.5 L (11.4-16.0) gm/dL Hct 25.8 L (34.0-46.0) % RDW 16.4 H (11.5-15.5) % Sodium 136 L (137-145) mmol/L Potassium 3.4 L (3.5-5.1) mmol/L Chloride 109 H (98-107) mmol/L Glucose 69 L (74-99) mg/dL POC Glucose (mg/dL) 112 H (75-99) mg/dL Calcium 8.3 L (8.4-10.2) mg/dL Microbiology - Last 24 Hours (Table) 03/22/20 16:17 Blood Culture - Preliminary Blood No Growth after 72 hours Assessment and Plan Assessment: Altered mental status possible metabolic encephalopathy with infection. Acute urinary tract infection. . Urine culture showed Jyoti albicans. Severe hypokalemia and hypomagnesemia. replaced Hypovolemic hyponatremia Vascular dementia. History of seizure disorder Failure to thrive Recent COVID-19 viral infection 2 months ago. Currently on room air Diabetes type 2 [id number] History of CVA with left-sided weakness. Hypertension Paroxysmal atrial fibrillation currently not on any anticoagulation History of ESBL urinary tract infection Depression Previous history of smoking Morbid obesity with BMI 41.2 Plan: Patient will be continued on gentle hydration replace potassium and magnesium. Continue with antibiotics in the form of ceftriaxone for urinary tract infection. Keppra dose was increased due to possible seizure episodes. Patient was started on B12 supplementation. B12 level is low normal level. Neurology is following. Continue to encourage oral intake and PT OT will be consulted. Continue with home medications and further recommendations based on the clinical course. Prognosis guarded. Discussed with her at bedside in detail. Time with Patient: Greater than 30
--- NOTE | 2020-03-28 23:40 | P.PN ---
Subjective Progress Note Date: 03/27/20 Principal diagnosis: Altered mental status possible metabolic encephalopathy with infection. Patient is a 64-year-old female with a known history of hypertension, diabetes type 2 [id number], paroxysmal atrial fibrillation currently not on any anticoagulation, history of CVA with left-sided weakness, history of ESBL urinary tract infection, carotid endarterectomy, depression and previous history of smoking was brought to the hospital by EMS along with her due to complaints of altered mental status and failure to thrive. Patient has been declining health and decreased oral intake. Patient has been drinking only liquids Patient was diagnosed with COVID-19 viral infection about 3 months ago. Patient is off oxygen. Patient still having cough without sputum production. No nausea vomiting or abdominal pain or diarrhea. Patient usually ambulates with a walker. Patient was more confused than normal today and was brought to the hospital by EMS. Patient is a poor historian and most of the history was taken from medical records and her at bedside. EKG showed sinus rhythm with short [place]. Prolonged QT. Chest x-ray showed cardiomegaly. Laboratory data showed WBC 6.9, hemoglobin 10.4, platelets 228 INR 1.2 Sodium 134 and potassium 3.0 Chloride 100 and BUN 12 and creatinine 0.56 Magnesium level is 1.0 during onset not elevated albumin 2.6 Urinalysis showed yellow with 1+ ketones moderate leukocyte esterase and 22 WBCs 03/23/2020 Patient is currently lying in the bed comfortably. Patient is more awake and oriented today. POTASSIUM level is 2.5 which is being replaced. Patient is being continued on antibiotics off ceftriaxone for urinary tract infection. Urine culture showed Jyoti albicans. No leukocytosis. Patient has been afebrile. PT OT was consulted. Patient is wheelchair-bound at baseline. Otherwise denied any complaints of chest pain or shortness breath.. 03/24/2020 Patient is currently lying in the bed comfortably but more confused compared to yesterday. Patient has been having on and off episodes of confusion as per family. EEG was ordered and rule out any seizures. Neurology was consulted as well. Keppra dose increased to 750 mg twice daily. Otherwise patient is having decrease of oral intake. Potassium was replaced. 03/25/2020 Patient still is confused. Otherwise patient has been afebrile. No nausea vomiting or diarrhea. Patient does have decreased oral intake. Continued on Keppra dose. Neurology is considering possible COVID-19 later encephalitis. Patient continues to decline her mental status. We will discuss with her caregiver regarding previous anticoagulation and restart if not contraindicated. 03/27 Patient continues to be confused and encephalopathic. Not eating well with. Denied any complaints of headache. No chest pain or shortness of breath. Patient is being continued on IV gentle hydration. Family agreeable for lumbar puncture. Neurology is following. Patient has been afebrile. Laboratory data showed WBC 4.1, hemoglobin 8.5 RDW 16.4, sodium 136, potassium 3.4, chloride 109 BUN 9 and creatinine 0.57 03/27/2020 Patient is still confused. Lumbar puncture was attempted today but was not successful. Patient is afebrile. Continued on gentle hydration. Lethargic and not eating. Denied any complaints of chest pain shortness of breath or abdominal pain. No diarrhea. Neurology is on board. Current medications reviewed. Objective - Vital Signs Vital signs: Vital Signs Temp 97.8 F 03/27/20 18:56 Pulse 61 03/27/20 20:00 Resp 18 03/27/20 20:00 BP 152/71 03/27/20 18:56 Pulse Ox 97 03/27/20 18:56 Intake & Output 03/27/20 03/27/20 03/28/20 06:59 18:59 06:59 Intake Total 200 Output Total 475 Balance -475 200 Weight 108.862 kg Intake: Oral 200 Output: Urine 475 Other: Voiding Method Indwelling Catheter Indwelling Catheter Indwelling Catheter - Exam PHYSICAL EXAMINATION: Patient is lying in the bed comfortably, no acute distress, awake alert and oriented x1. confused. HEENT: Normocephalic. Neck is supple. Pupils reactive. Nostrils clear. Oral cavity is moist. Ears reveal no drainage. Neck reveals no JVD, carotid bruits, or thyromegaly. CHEST EXAMINATION: Trachea is central. Symmetrical expansion. Lung clifford clear to auscultation and percussion. CARDIAC: Normal S1, S2 with no gallops. No murmurs ABDOMEN: Soft. Bowel sounds normal. No organomegaly. No abdominal bruits. Extremities: reveal no edema. No clubbing or cyanosis lethargc, left sided weakness. Skin: No rash or skin lesions. Psychiatric: Cooperative. could not be assesed completely Musculoskeletal: No joint swelling or deformity. - Labs CBC & Chem 7: 03/26/20 06:30 03/26/20 06:30 Labs: Abnormal Lab Results - Last 24 Hours (Table) 03/27/20 03/27/20 Range/Units 16:53 20:16 POC Glucose (mg/dL) 102 H 104 H (75-99) mg/dL Microbiology - Last 24 Hours (Table) 03/22/20 16:17 Blood Culture - Preliminary Blood No Growth after 120 hours Assessment and Plan Assessment: Altered mental status possible metabolic encephalopathy with infection. Acute urinary tract infection. . Urine culture showed Jyoti albicans. Severe hypokalemia and hypomagnesemia. replaced Hypovolemic hyponatremia Vascular dementia. History of seizure disorder Failure to thrive Recent COVID-19 viral infection 2 months ago. Currently on room air Diabetes type 2 [id number] History of CVA with left-sided weakness. Hypertension Paroxysmal atrial fibrillation currently not on any anticoagulation History of ESBL urinary tract infection Depression Previous history of smoking Morbid obesity with BMI 41.2 Plan: Patient will be continued on gentle hydration replace potassium and magnesium. Continue with antibiotics in the form of ceftriaxone for urinary tract infection. Keppra dose was increased due to possible seizure episodes. Patient was started on B12 supplementation. B12 level is low normal level. Neurology is following. Continue to encourage oral intake and PT OT will be consulted. Continue with home medications and further recommendations based on the clinical course. Prognosis guarded. Discussed with her at bedside in detail. Time with Patient: Greater than 30
[2020-03-29 07:12] LABS: Glucose,Whole Blood 84 mg/dL (75-99)
[2020-03-29] MEDS: SODIUM CHLORIDE 0.9% 1,000 ML IV SCH ×2 (07:18→21:25)
[2020-03-29] MEDS: CARVEDILOL 6.25 MG TAB PO SCH ×2 (07:18→17:12)
[2020-03-29] MEDS: ASPIRIN 81 MG PO SCH (07:18)
[2020-03-29] MEDS: HEPARIN SODIUM,PORCINE 5,000 UNIT/ML 1 ML VIAL SQ SCH ×3 (07:18→23:09)
[2020-03-29] MEDS: hydrALAZINE HCL 50 MG TAB PO SCH ×2 (07:18→20:56)
[2020-03-29] MEDS: PANTOPRAZOLE 40 MG TABLET PO SCH (07:18)
[2020-03-29] MEDS: LOSARTAN 50 MG TAB PO SCH (07:18)
[2020-03-29] MEDS: levETIRAcetam 250 MG TAB PO SCH ×2 (07:22→20:56)
[2020-03-29] MEDS: CYANOCOBALAMIN-FA-PYRIDOXINE 1 EACH TAB PO SCH (07:22)
[2020-03-29] MEDS: ACETAMINOPHEN TAB 325 MG TAB PO PRN (07:50)
[2020-03-29] MEDS: INSULIN ASPART (NovoLOG) 100 UNIT/ML VIAL SQ SCH ×4 (07:55→20:57)
[2020-03-29 08:07] LABS: African American GFR (CKD) >90 (>60 ml/min/1.73 sqM); Anion Gap 3 mmol/L; Blood Urea Nitrogen 7 mg/dL (7-17); Calcium 8.6 mg/dL (8.4-10.2); Carbon Dioxide 21 mmol/L (22-30); Chloride 113 mmol/L (98-107); Glucose 80 mg/dL (74-99); Non-African American GFR(CKD) >90 (>60 ml/min/1.73 sqM); Sodium 137 mmol/L (137-145)
[2020-03-29 08:10] LABS: Potassium 3.3 mmol/L (3.5-5.1)
[2020-03-29 08:19] LABS: Anisocytosis Slight; Basophils % (A) 1 %; Eosinophils # (A) 0.1 k/uL (0-0.7); Eosinophils % (A) 3 %; Hypochromasia Marked; Lymphocytes # (A) 1.4 k/uL (1.0-4.8); Lymphocytes % (A) 34 %; MCH 27.1 pg (25.0-35.0); MCV 87.3 fL (80.0-100.0); Mean Platelet Volume 8.2; Monocytes # (A) 0.2 k/uL (0-1.0); Monocytes % (A) 4 %; Neutrophils # (A) 2.2 k/uL (1.3-7.7); Neutrophils % (A) 55 %; Platelet Count 190 k/uL (150-450); RBC 3.32 m/uL (3.80-5.40); RDW 16.5 % (11.5-15.5); WBC 3.9 k/uL (3.8-10.6)
[2020-03-29 11:43] LABS: Glucose,Whole Blood 117 mg/dL (75-99)
[2020-03-29] MEDS ORDERED: POTASSIUM CHLORIDE ER 20 MEQ TAB.ER PO STA (12:53)
--- NOTE | 2020-03-29 14:50 | P.PN ---
Subjective Progress Note Date: 03/29/20 The patient reports feeling "real good" today. She denies having any difficulty with yesterday's lumbar puncture. Objective - Vital Signs Vital signs: Vital Signs Temp 97.9 F 03/29/20 07:00 Pulse 61 03/29/20 07:00 Resp 17 03/29/20 07:00 BP 191/64 03/29/20 07:00 Pulse Ox 98 03/29/20 07:00 Intake & Output 03/28/20 03/29/20 03/29/20 18:59 06:59 18:59 Intake Total 262.5 Output Total 200 550 Balance -200 -287.5 Intake: Intake, IV Titration 262.5 Amount Sodium Chloride 0.9% 1, 262.5 000 ml @ 75 mls/hr IV . [id number] [facility] Rx#:[id number] Output: Urine 200 550 Other: Voiding Method Indwelling Catheter Indwelling Catheter Indwelling Catheter # Bowel Movements 1 1 - Exam Gen.: The patient is reclining in the bed. She is sleeping she is easily awakened. Heart: Regular rate and rhythm without murmur Lungs: Diminished breath sounds. The patient does have a productive cough. Neurological examination Mental status: Patient is awake. She is able to tell me her name and date of . She is not oriented to the current location. She says she is "at home" she reports the year to be "2018" the month is "february" the patient is able to follow some simple commands. Cranial nerves: Pupils are equal, round and reactive to light. There is a left facial droop. Motor: Left upper extremity is flaccid secondary to previous stroke. Right java j2ee application developer strength is 5/5. - Labs CBC & Chem 7: 03/29/20 07:20 03/29/20 07:20 Labs: Abnormal Lab Results - Last 24 Hours (Table) 03/28/20 03/28/20 03/29/20 Range/Units 11:41 13:00 07:20 RBC 3.32 L (3.80-5.40) m/uL Hgb 9.0 L (11.4-16.0) gm/dL Hct 29.0 L (34.0-46.0) % RDW 16.5 H (11.5-15.5) % Potassium (3.5-5.1) mmol/L Chloride (98-107) mmol/L Carbon Dioxide (22-30) mmol/L Creatinine (0.52-1.04) mg/dL POC Glucose (mg/dL) 102 H (75-99) mg/dL CSF RBC 650 H (0-10) u/L CSF Total Protein 64 H (12-60) mg/dL 03/29/20 Range/Units 07:20 RBC (3.80-5.40) m/uL Hgb (11.4-16.0) gm/dL Hct (34.0-46.0) % RDW (11.5-15.5) % Potassium 3.3 L (3.5-5.1) mmol/L Chloride 113 H (98-107) mmol/L Carbon Dioxide 21 L (22-30) mmol/L Creatinine 0.51 L (0.52-1.04) mg/dL POC Glucose (mg/dL) (75-99) mg/dL CSF RBC (0-10) u/L CSF Total Protein (12-60) mg/dL Microbiology - Last 24 Hours (Table) 03/28/20 13:00 CSF Gram Stain - Preliminary Cerebral Spinal Fluid CSF Culture - Preliminary 03/22/20 16:17 Blood Culture - Final Blood No Growth after 144 hours Assessment and Plan Assessment: 1. Mental status changes-likely toxic/metabolic encephalopathy secondary to UTI 2. CSF negative for infection 3. Possible underlying dementia Plan: 1. continue treatment of UTI 2. Appreciate Dr. Gilbert performance of lumbar puncture 3. Neurology will sign off at this point. Please call if needed. Thank you for allowing me to participate in the care of this patient Time with Patient: Less than 30 (spent 25 minutes with patient via teleneur ology)
[2020-03-29 16:29] LABS: Glucose,Whole Blood 115 mg/dL (75-99)
[2020-03-29 20:30] LABS: Glucose,Whole Blood 92 mg/dL (75-99)
[2020-03-29] MEDS: ATORVASTATIN 80 MG TAB PO SCH (20:56)
[2020-03-29] MEDS: CITALOPRAM HYDROBROMIDE 20 MG TAB PO SCH (20:56)
--- NOTE | 2020-03-30 01:12 | P.PN ---
Subjective Progress Note Date: 03/28/20 Principal diagnosis: Altered mental status possible metabolic encephalopathy with infection. Patient is a 64-year-old female with a known history of hypertension, diabetes type 2 [id number], paroxysmal atrial fibrillation currently not on any anticoagulation, history of CVA with left-sided weakness, history of ESBL urinary tract infection, carotid endarterectomy, depression and previous history of smoking was brought to the hospital by EMS along with her due to complaints of altered mental status and failure to thrive. Patient has been declining health and decreased oral intake. Patient has been drinking only liquids Patient was diagnosed with COVID-19 viral infection about 3 months ago. Patient is off oxygen. Patient still having cough without sputum production. No nausea vomiting or abdominal pain or diarrhea. Patient usually ambulates with a walker. Patient was more confused than normal today and was brought to the hospital by EMS. Patient is a poor historian and most of the history was taken from medical records and her at bedside. EKG showed sinus rhythm with short [place]. Prolonged QT. Chest x-ray showed cardiomegaly. Laboratory data showed WBC 6.9, hemoglobin 10.4, platelets 228 INR 1.2 Sodium 134 and potassium 3.0 Chloride 100 and BUN 12 and creatinine 0.56 Magnesium level is 1.0 during onset not elevated albumin 2.6 Urinalysis showed yellow with 1+ ketones moderate leukocyte esterase and 22 WBCs 03/23/2020 Patient is currently lying in the bed comfortably. Patient is more awake and oriented today. POTASSIUM level is 2.5 which is being replaced. Patient is being continued on antibiotics off ceftriaxone for urinary tract infection. Urine culture showed Jyoti albicans. No leukocytosis. Patient has been afebrile. PT OT was consulted. Patient is wheelchair-bound at baseline. Otherwise denied any complaints of chest pain or shortness breath.. 03/24/2020 Patient is currently lying in the bed comfortably but more confused compared to yesterday. Patient has been having on and off episodes of confusion as per family. EEG was ordered and rule out any seizures. Neurology was consulted as well. Keppra dose increased to 750 mg twice daily. Otherwise patient is having decrease of oral intake. Potassium was replaced. 03/25/2020 Patient still is confused. Otherwise patient has been afebrile. No nausea vomiting or diarrhea. Patient does have decreased oral intake. Continued on Keppra dose. Neurology is considering possible COVID-19 later encephalitis. Patient continues to decline her mental status. We will discuss with her caregiver regarding previous anticoagulation and restart if not contraindicated. 03/27 Patient continues to be confused and encephalopathic. Not eating well with. Denied any complaints of headache. No chest pain or shortness of breath. Patient is being continued on IV gentle hydration. Family agreeable for lumbar puncture. Neurology is following. Patient has been afebrile. Laboratory data showed WBC 4.1, hemoglobin 8.5 RDW 16.4, sodium 136, potassium 3.4, chloride 109 BUN 9 and creatinine 0.57 03/27/2020 Patient is still confused. Lumbar puncture was attempted today but was not successful. Patient is afebrile. Continued on gentle hydration. Lethargic and not eating. Denied any complaints of chest pain shortness of breath or abdominal pain. No diarrhea. Neurology is on board. 03/28/2020 Patient is still lethargic and confused this morning. Patient had LP done and fluid analysis for cytology and culture was sent. Neurology is following. Patient is afebrile. Continue antibiotics in the form of ceftriaxone which can be discontinued. Urine culture only showed Jyoti albicans. Patient is on gentle hydration and current medications include Keppra and cyanocobalamin. No nausea vomiting. Patient did have decreased oral intake. Continue with Ensure 3 times daily. Current medications reviewed. Objective - Vital Signs Vital signs: Vital Signs Temp 97.7 F 03/28/20 14:46 Pulse 67 03/28/20 14:46 Resp 18 03/28/20 14:46 BP 164/82 03/28/20 14:46 Pulse Ox 99 03/28/20 14:46 Intake & Output 03/27/20 03/28/20 03/28/20 18:59 06:59 18:59 Intake Total 200 Output Total 300 200 Balance 200 -300 -200 Weight 108.862 kg Intake: Oral 200 Output: Urine 300 200 Other: Voiding Method Indwelling Catheter Indwelling Catheter Indwelling Catheter # Voids 1 # Bowel Movements 1 1 - Exam PHYSICAL EXAMINATION: Patient is lying in the bed comfortably, no acute distress, awake alert and oriented x1. confused. HEENT: Normocephalic. Neck is supple. Pupils reactive. Nostrils clear. Oral cavity is moist. Ears reveal no drainage. Neck reveals no JVD, carotid bruits, or thyromegaly. CHEST EXAMINATION: Trachea is central. Symmetrical expansion. Lung clifford clear to auscultation and percussion. CARDIAC: Normal S1, S2 with no gallops. No murmurs ABDOMEN: Soft. Bowel sounds normal. No organomegaly. No abdominal bruits. Extremities: reveal no edema. No clubbing or cyanosis lethargc, left sided weakness. Skin: No rash or skin lesions. Psychiatric: Cooperative. could not be assesed completely Musculoskeletal: No joint swelling or deformity. - Labs CBC & Chem 7: 03/29/20 07:20 03/29/20 07:20 Labs: Abnormal Lab Results - Last 24 Hours (Table) 03/27/20 03/28/20 03/28/20 Range/Units 20:16 11:41 13:00 POC Glucose (mg/dL) 104 H 102 H (75-99) mg/dL CSF RBC 650 H (0-10) u/L CSF Total Protein 64 H (12-60) mg/dL Microbiology - Last 24 Hours (Table) 03/28/20 13:00 CSF Gram Stain - Preliminary Cerebral Spinal Fluid 03/22/20 16:17 Blood Culture - Preliminary Blood No Growth after 120 hours Assessment and Plan Assessment: Altered mental status possible metabolic encephalopathy with infection. Acute urinary tract infection. . Urine culture showed Jyoti albicans. Severe hypokalemia and hypomagnesemia. replaced Hypovolemic hyponatremia Vascular dementia. History of seizure disorder Failure to thrive Recent COVID-19 viral infection 2 months ago. Currently on room air Diabetes type 2 [id number] History of CVA with left-sided weakness. Hypertension Paroxysmal atrial fibrillation currently not on any anticoagulation History of ESBL urinary tract infection Depression Previous history of smoking Morbid obesity with BMI 41.2 Plan: Patient will be continued on gentle hydration replace potassium and magnesium. Continue with antibiotics in the form of ceftriaxone for urinary tract infection. Keppra dose was increased due to possible seizure episodes. Patient was started on B12 supplementation. B12 level is low normal level. Neurology is following. Continue to encourage oral intake and PT OT was consulted. Continue with home medications and further recommendations based on the clinical course. Prognosis guarded. Discussed with her at bedside in detail. Time with Patient: Greater than 30
[2020-03-30] MEDS ORDERED: DOCUSATE 100 MG CAP PO PRN (01:13)
--- NOTE | 2020-03-30 01:15 | P.PN ---
Subjective Progress Note Date: 03/29/20 Principal diagnosis: Altered mental status possible metabolic encephalopathy with infection. Patient is a 64-year-old female with a known history of hypertension, diabetes type 2 [id number], paroxysmal atrial fibrillation currently not on any anticoagulation, history of CVA with left-sided weakness, history of ESBL urinary tract infection, carotid endarterectomy, depression and previous history of smoking was brought to the hospital by EMS along with her due to complaints of altered mental status and failure to thrive. Patient has been declining health and decreased oral intake. Patient has been drinking only liquids Patient was diagnosed with COVID-19 viral infection about 3 months ago. Patient is off oxygen. Patient still having cough without sputum production. No nausea vomiting or abdominal pain or diarrhea. Patient usually ambulates with a walker. Patient was more confused than normal today and was brought to the hospital by EMS. Patient is a poor historian and most of the history was taken from medical records and her at bedside. EKG showed sinus rhythm with short MA. Prolonged QT. Chest x-ray showed cardiomegaly. Laboratory data showed WBC 6.9, hemoglobin 10.4, platelets 228 INR 1.2 Sodium 134 and potassium 3.0 Chloride 100 and BUN 12 and creatinine 0.56 Magnesium level is 1.0 during onset not elevated albumin 2.6 Urinalysis showed yellow with 1+ ketones moderate leukocyte esterase and 22 WBCs 03/23/2020 Patient is currently lying in the bed comfortably. Patient is more awake and oriented today. POTASSIUM level is 2.5 which is being replaced. Patient is being continued on antibiotics off ceftriaxone for urinary tract infection. Urine culture showed Jyoti albicans. No leukocytosis. Patient has been afebrile. PT OT was consulted. Patient is wheelchair-bound at baseline. Otherwise denied any complaints of chest pain or shortness breath.. 03/24/2020 Patient is currently lying in the bed comfortably but more confused compared to yesterday. Patient has been having on and off episodes of confusion as per family. EEG was ordered and rule out any seizures. Neurology was consulted as well. Keppra dose increased to 750 mg twice daily. Otherwise patient is having decrease of oral intake. Potassium was replaced. 03/25/2020 Patient still is confused. Otherwise patient has been afebrile. No nausea vomiting or diarrhea. Patient does have decreased oral intake. Continued on Keppra dose. Neurology is considering possible COVID-19 later encephalitis. Patient continues to decline her mental status. We will discuss with her caregiver regarding previous anticoagulation and restart if not contraindicated. 03/27 Patient continues to be confused and encephalopathic. Not eating well with. Denied any complaints of headache. No chest pain or shortness of breath. Patient is being continued on IV gentle hydration. Family agreeable for lumbar puncture. Neurology is following. Patient has been afebrile. Laboratory data showed WBC 4.1, hemoglobin 8.5 RDW 16.4, sodium 136, potassium 3.4, chloride 109 BUN 9 and creatinine 0.57 03/27/2020 Patient is still confused. Lumbar puncture was attempted today but was not successful. Patient is afebrile. Continued on gentle hydration. Lethargic and not eating. Denied any complaints of chest pain shortness of breath or abdominal pain. No diarrhea. Neurology is on board. 03/28/2020 Patient is still lethargic and confused this morning. Patient had LP done and fluid analysis for cytology and culture was sent. Neurology is following. Patient is afebrile. Continue antibiotics in the form of ceftriaxone which can be discontinued. Urine culture only showed Jyoti albicans. Patient is on gentle hydration and current medications include Keppra and cyanocobalamin. No nausea vomiting. Patient did have decreased oral intake. Continue with Ensure 3 times daily. 03/29/2020 Patient is more awake and alert and oriented today. Able to recognize her family. Still lethargic. Potassium is done which is being replaced. No complaints of chest pain or shortness of the. No nausea vomiting or abdominal pain. Denies any diarrhea. Patient is being continued on stool softeners. Antibiotics will be discontinued today patient completed antibiotics for urinary tract infection. Otherwise patient is CSF analysis showed no evidence of infection. Neurology is following. PT OT. Encourage oral intake possible discharge to rehab.. Current medications reviewed. Objective - Vital Signs Vital signs: Vital Signs Temp 97.9 F 03/29/20 07:00 Pulse 61 03/29/20 07:00 Resp 17 03/29/20 07:00 BP 191/64 03/29/20 07:00 Pulse Ox 98 03/29/20 07:00 Intake & Output 03/28/20 03/29/20 03/29/20 18:59 06:59 18:59 Intake Total 262.5 Output Total 200 550 Balance -200 -287.5 Intake: Intake, IV Titration 262.5 Amount Sodium Chloride 0.9% 1, 262.5 000 ml @ 75 mls/hr IV . [id number] [facility] Rx#:[id number] Output: Urine 200 550 Other: Voiding Method Indwelling Catheter Indwelling Catheter Indwelling Catheter # Bowel Movements 1 1 - Exam PHYSICAL EXAMINATION: Patient is lying in the bed comfortably, no acute distress, awake alert and oriented x2-3. HEENT: Normocephalic. Neck is supple. Pupils reactive. Nostrils clear. Oral cavity is moist. Ears reveal no drainage. Neck reveals no JVD, carotid bruits, or thyromegaly. CHEST EXAMINATION: Trachea is central. Symmetrical expansion. Lung clifford clear to auscultation and percussion. CARDIAC: Normal S1, S2 with no gallops. No murmurs ABDOMEN: Soft. Bowel sounds normal. No organomegaly. No abdominal bruits. Extremities: reveal no edema. No clubbing or cyanosis lethargc, left sided weakness. Skin: No rash or skin lesions. Psychiatric: Cooperative. could not be assesed completely Musculoskeletal: No joint swelling or deformity. - Labs CBC & Chem 7: 03/29/20 07:20 03/29/20 07:20 Labs: Abnormal Lab Results - Last 24 Hours (Table) 03/28/20 03/28/20 03/29/20 Range/Units 11:41 13:00 07:20 RBC 3.32 L (3.80-5.40) m/uL Hgb 9.0 L (11.4-16.0) gm/dL Hct 29.0 L (34.0-46.0) % RDW 16.5 H (11.5-15.5) % Potassium (3.5-5.1) mmol/L Chloride (98-107) mmol/L Carbon Dioxide (22-30) mmol/L Creatinine (0.52-1.04) mg/dL POC Glucose (mg/dL) 102 H (75-99) mg/dL CSF RBC 650 H (0-10) u/L CSF Total Protein 64 H (12-60) mg/dL 03/29/20 Range/Units 07:20 RBC (3.80-5.40) m/uL Hgb (11.4-16.0) gm/dL Hct (34.0-46.0) % RDW (11.5-15.5) % Potassium 3.3 L (3.5-5.1) mmol/L Chloride 113 H (98-107) mmol/L Carbon Dioxide 21 L (22-30) mmol/L Creatinine 0.51 L (0.52-1.04) mg/dL POC Glucose (mg/dL) (75-99) mg/dL CSF RBC (0-10) u/L CSF Total Protein (12-60) mg/dL Microbiology - Last 24 Hours (Table) 03/28/20 13:00 CSF Gram Stain - Preliminary Cerebral Spinal Fluid CSF Culture - Preliminary 03/22/20 16:17 Blood Culture - Final Blood No Growth after 144 hours Assessment and Plan Assessment: Altered mental status possible metabolic encephalopathy with infection. Improving. Acute urinary tract infection. . Urine culture showed Jyoti albicans. Severe hypokalemia and hypomagnesemia. replaced Hypovolemic hyponatremia Vascular dementia. History of seizure disorder Failure to thrive Recent COVID-19 viral infection 2 months ago. Currently on room air Diabetes type 2 [id number] History of CVA with left-sided weakness. Hypertension Paroxysmal atrial fibrillation currently not on any anticoagulation History of ESBL urinary tract infection Depression Previous history of smoking Morbid obesity with BMI 41.2 Plan: Patient will be continued on gentle hydration replace potassium and magnesium. Continue with antibiotics in the form of ceftriaxone for urinary tract infection. Completed for 7 days. Keppra dose was increased due to possible seizure episodes. Patient was started on B12 supplementation. B12 level is low normal level. Neurology is following. Continue to encourage oral intake and PT OT was consulted. Continue with home medications and further recommendations based on the clinical course. Prognosis guarded. Discussed with her at bedside in detail. Time with Patient: Greater than 30
[2020-03-30 06:50] LABS: Glucose,Whole Blood 91 mg/dL (75-99)
[2020-03-30] MEDS: INSULIN ASPART (NovoLOG) 100 UNIT/ML VIAL SQ SCH ×4 (07:14→21:09)
[2020-03-30] MEDS: levETIRAcetam 250 MG TAB PO SCH ×2 (08:13→21:10)
[2020-03-30] MEDS: hydrALAZINE HCL 50 MG TAB PO SCH ×2 (08:14→21:10)
[2020-03-30] MEDS: CYANOCOBALAMIN-FA-PYRIDOXINE 1 EACH TAB PO SCH (08:14)
[2020-03-30] MEDS: ASPIRIN 81 MG PO SCH (08:14)
[2020-03-30] MEDS: CARVEDILOL 6.25 MG TAB PO SCH ×3 (08:14→17:18)
[2020-03-30] MEDS: PANTOPRAZOLE 40 MG TABLET PO SCH (08:14)
[2020-03-30] MEDS: LOSARTAN 50 MG TAB PO SCH (08:14)
[2020-03-30] MEDS: HEPARIN SODIUM,PORCINE 5,000 UNIT/ML 1 ML VIAL SQ SCH ×2 (08:14→17:18)
--- NOTE | 2020-03-30 09:19 | P.PN ---
Subjective From the records Patient is a 64-year-old female with a known history of hypertension, diabetes type 2 [id number], paroxysmal atrial fibrillation currently not on any anticoagulation, history of CVA with left-sided weakness, history of ESBL urinary tract infection, carotid endarterectomy, depression and previous history of smoking was brought to the hospital by EMS along with her due to complaints of altered mental status and failure to thrive. Patient has been declining health and decreased oral intake. Patient has been drinking only liquids Patient was diagnosed with COVID-19 viral infection about 3 months ago. Patient is off oxygen. Patient still having cough without sputum production. No nausea vomiting or abdominal pain or diarrhea. Patient usually ambulates with a walker. Patient was more confused than normal today and was brought to the hospital by EMS. Patient is a poor historian and most of the history was taken from medical records and her at bedside. EKG showed sinus rhythm with short HI. Prolonged QT. Chest x-ray showed cardiomegaly. Laboratory data showed WBC 6.9, hemoglobin 10.4, platelets 228 INR 1.2 Sodium 134 and potassium 3.0 Chloride 100 and BUN 12 and creatinine 0.56 Magnesium level is 1.0 during onset not elevated albumin 2.6 Urinalysis showed yellow with 1+ ketones moderate leukocyte esterase and 22 WBCs 03/23/2020 Patient is currently lying in the bed comfortably. Patient is more awake and oriented today. POTASSIUM level is 2.5 which is being replaced. Patient is being continued on antibiotics off ceftriaxone for urinary tract infection. Urine culture showed Jyoti albicans. No leukocytosis. Patient has been afebrile. PT OT was consulted. Patient is wheelchair-bound at baseline. Otherwise denied any complaints of chest pain or shortness breath.. 03/24/2020 Patient is currently lying in the bed comfortably but more confused compared to yesterday. Patient has been having on and off episodes of confusion as per family. EEG was ordered and rule out any seizures. Neurology was consulted as well. Keppra dose increased to 750 mg twice daily. Otherwise patient is having decrease of oral intake. Potassium was replaced. 03/25/2020 Patient still is confused. Otherwise patient has been afebrile. No nausea vomiting or diarrhea. Patient does have decreased oral intake. Continued on Keppra dose. Neurology is considering possible COVID-19 later encephalitis. Patient continues to decline her mental status. We will discuss with her caregiver regarding previous anticoagulation and restart if not contraindicated. 03/27 Patient continues to be confused and encephalopathic. Not eating well with. Denied any complaints of headache. No chest pain or shortness of breath. Patient is being continued on IV gentle hydration. Family agreeable for lumbar puncture. Neurology is following. Patient has been afebrile. Laboratory data showed WBC 4.1, hemoglobin 8.5 RDW 16.4, sodium 136, potassium 3.4, chloride 109 BUN 9 and creatinine 0.57 03/27/2020 Patient is still confused. Lumbar puncture was attempted today but was not successful. Patient is afebrile. Continued on gentle hydration. Lethargic and not eating. Denied any complaints of chest pain shortness of breath or abdominal pain. No diarrhea. Neurology is on board. 03/28/2020 Patient is still lethargic and confused this morning. Patient had LP done and fluid analysis for cytology and culture was sent. Neurology is following. Patient is afebrile. Continue antibiotics in the form of ceftriaxone which can be discontinued. Urine culture only showed Jyoti albicans. Patient is on gentle hydration and current medications include Keppra and cyanocobalamin. No nausea vomiting. Patient did have decreased oral intake. Continue with Ensure 3 times daily. 03/29/2020 Patient is more awake and alert and oriented today. Able to recognize her family. Still lethargic. Potassium is done which is being replaced. No complaints of chest pain or shortness of the. No nausea vomiting or abdominal pain. Denies any diarrhea. Patient is being continued on stool softeners. Antibiotics will be discontinued today patient completed antibiotics for urinary tract infection. Otherwise patient is CSF analysis showed no evidence of infection. Neurology is following. PT OT. Encourage oral intake possible discharge to rehab.. Subjective 03/30/2020 This is a pleasant 64 years old female for failure to thrive. Patient is confused and cannot provide information. I spoke with the MrJaylen Segovia over the phone and he told me she's been confused but that that she got worse. She always have left sided weakness from multiples strokes the pubic stroke was about 4 years ago. He was concerned about her inability to eat but according to him she does not ask for food or to be cleaned and it looks like patient could not recognize the surrounding. Neurology already evaluated the patient and she still had negative for lumbar puncture. Workup by neurologist was negative so far and they signed off. Also patient is being treated for UTI which may contribute to her confusion, however patient is afebrile, no leukocytosis. Urine culture is growing Jyoti. MRI from 11/08/2019 showing punctate foci of acute/subacute ischemia throughout the bilateral coronary artery to, and there is background mild to moderate diffuse cerebral atrophy and advanced chronic small vessel ischemic changes with old right-sided posterior watershed infarct At looks to me that the patient has advanced dementia going towards and the stage dementia I discussed with the and they are willing for the patient to go to [facility] for rehab Review of system: N/a, patient could not provide information Active Medications Generic Name Dose Route Start Last Admin Trade Name Freq PRN Reason Stop Dose Admin Acetaminophen 650 mg 03/22/20 20:32 03/29/20 07:50 Tylenol Tab PO 650 mg Q6HR PRN Administration Fever and/ or Pain Aspirin 81 mg 03/23/20 09:00 03/30/20 08:14 Aspirin PO 81 mg DAILY BRODY Administration Atorvastatin Calcium 80 mg 03/22/20 21:00 03/29/20 20:56 Lipitor PO 80 mg HS BRODY Administration Carvedilol 6.25 mg 03/22/20 20:45 03/30/20 08:14 Coreg PO 6.25 mg BID-W/MEALS BRODY Administration Citalopram Hydrobromide 40 mg 03/22/20 21:00 03/29/20 20:56 Celexa PO 40 mg HS BR[facility] Administration Docusate Sodium 100 mg 03/30/20 01:13 Colace PO DAILY PRN Constipation Folic Acid 1 each 03/25/20 18:45 03/30/20 08:14 Folbic PO 1 each DAILY BR[facility] Administration Heparin Sodium (Porcine) 5,000 unit 03/23/20 00:00 03/30/20 08:14 Heparin SQ 5,000 unit Q8HR [facility] Administration Hydralazine HCl 50 mg 03/22/20 21:00 03/30/20 08:14 Apresoline PO 50 mg BID BR[facility] Administration Sodium Chloride 1,000 mls @ 50 mls/hr 03/22/20 15:00 03/29/20 21:25 Saline 0.9% IV Not Given .Q20H [facility] Insulin Aspart 0 unit 03/22/20 21:00 03/30/20 07:14 Novolog SQ Not Given ACHS [facility] Protocol Levetiracetam 750 mg 03/24/20 21:00 03/30/20 08:13 Keppra PO 750 mg Q12HR [facility] Administration Losartan Potassium 100 mg 03/22/20 20:45 03/30/20 08:14 Cozaar PO 100 mg DAILY BR[facility] Administration Miscellaneous Information 1 each 03/22/20 21:08 Potassium Per Protocol MISCELLANE DAILY PRN Per Protocol Protocol Naloxone HCl 0.2 mg 03/22/20 14:48 Narcan IV Q2M PRN Opioid Reversal Ondansetron HCl 4 mg 03/22/20 14:48 Zofran IVP Q8HR PRN Nausea And Vomiting Pantoprazole Sodium 40 mg 03/23/20 07:30 03/30/20 08:14 Protonix PO 40 mg [id number] BR[facility] Administration Objective - Vital Signs Vital signs: Vital Signs Temp 97.5 F L 03/30/20 07:15 Pulse 66 03/30/20 07:15 Resp 16 03/30/20 07:15 BP 160/81 03/30/20 07:15 Pulse Ox 93 L 03/30/20 07:15 Intake & Output 03/29/20 03/30/20 03/30/20 18:59 06:59 18:59 Intake Total 600 Output Total 350 Balance -350 600 Intake: Intake, IV Titration 600 Amount Sodium Chloride 0.9% 1, 600 000 ml @ 50 mls/hr IV . Q20H [facility] Rx#:[id number] Output: Urine 350 Other: Voiding Method Indwelling Catheter Indwelling Catheter - Exam -GENERAL: The patient is but confused, she does not follow command. She is obese HEENT: Pupils are round and equally reacting to light. EOMI. No scleral icterus. No conjunctival pallor. Normocephalic, atraumatic. No pharyngeal erythema. No thyromegaly. CARDIOVASCULAR: S1 and S2 present. No murmurs, rubs, or gallops. PULMONARY: Chest is clear to auscultation, no wheezing or crackles. ABDOMEN: Soft, nontender, nondistended, normoactive bowel sounds. No palpable organomegaly. MUSCULOSKELETAL: No joint swelling or deformity. EXTREMITIES: No cyanosis, clubbing, or pedal edema. -NEUROLOGICAL: Gross neurological examination did not reveal any focal deficits. Left hemiparesis SKIN: No rashes. no petechiae. - Labs CBC & Chem 7: 03/29/20 07:20 03/29/20 07:20 Labs: Abnormal Lab Results - Last 24 Hours (Table) 03/29/20 03/29/20 Range/Units 11:41 16:26 POC Glucose (mg/dL) 117 H 115 H (75-99) mg/dL Microbiology - Last 24 Hours (Table) 03/28/20 13:00 CSF Gram Stain - Preliminary Cerebral Spinal Fluid CSF Culture - Preliminary Assessment and Plan Assessment: Altered mental status possible metabolic encephalopathy with infection. Improving. Advanced dementia, vascular dementia. Acute urinary tract infection. . Urine culture showed Jyoti albicans. Severe hypokalemia and hypomagnesemia. replaced Hypovolemic hyponatremia Vascular dementia. History of seizure disorder Failure to thrive Recent COVID-19 viral infection 2 months ago. Currently on room air Diabetes type 2 [id number] History of CVA with left-sided weakness. Hypertension Paroxysmal atrial fibrillation currently not on any anticoagulation History of ESBL urinary tract infection Depression Previous history of smoking Morbid obesity with BMI 41.2 Plan: This is a pleasant 64 years old female who presents with altered mental status, most likely patient has worsening vascular dementia with some elements of metabolic encephalopathy from UTI which is been treated. Patient probably will continue to have worsening mental status with time. Neurology already evaluated the patient and signed out for unremarkable workup. Physical therapy recommended home health care versus ECF and has been so like her to go to rehab for 2 weeks but no placement Labs and medication were reviewed.. Continue same treatment. Continue with symptomatic treatment. Resume home medication. Monitor lytes and vitals. DVT and GI prophylaxis. Further recommendations of the clinical course of the patient DVT prophylaxis: Subcutaneous heparin GI Prophylaxis: Ppi Prognosis is guarded
[2020-03-30 09:58] LABS: African American GFR (CKD) >90 (>60 ml/min/1.73 sqM); Anion Gap 3 mmol/L; Blood Urea Nitrogen 8 mg/dL (7-17); Calcium 8.5 mg/dL (8.4-10.2); Carbon Dioxide 22 mmol/L (22-30); Chloride 113 mmol/L (98-107); Glucose 83 mg/dL (74-99); Non-African American GFR(CKD) >90 (>60 ml/min/1.73 sqM); Potassium 3.6 mmol/L (3.5-5.1); Sodium 138 mmol/L (137-145)
[2020-03-30 10:15] LABS: Anisocytosis Slight; Basophils % (A) 0 %; Eosinophils # (A) 0.1 k/uL (0-0.7); Eosinophils % (A) 3 %; HCT 26.5 % (34.0-46.0); HGB 8.5 gm/dL (11.4-16.0); Hypochromasia Marked; Lymphocytes # (A) 1.3 k/uL (1.0-4.8); Lymphocytes % (A) 30 %; MCH 27.7 pg (25.0-35.0); MCHC 32.1 g/dL (31.0-37.0); MCV 86.2 fL (80.0-100.0); Mean Platelet Volume 8.4; Monocytes # (A) 0.2 k/uL (0-1.0); Monocytes % (A) 5 %; Neutrophils # (A) 2.6 k/uL (1.3-7.7); Neutrophils % (A) 60 %; Platelet Count 212 k/uL (150-450); RBC 3.07 m/uL (3.80-5.40); RDW 17.5 % (11.5-15.5); WBC 4.2 k/uL (3.8-10.6)
[2020-03-30 10:33] LABS: Crenated RBC Present; Poikilocytosis (M) Present
[2020-03-30 11:53] LABS: Glucose,Whole Blood 97 mg/dL (75-99)
[2020-03-30 16:51] LABS: Glucose,Whole Blood 113 mg/dL (75-99)
[2020-03-30] MEDS: SODIUM CHLORIDE 0.9% 1,000 ML IV SCH (17:18)
[2020-03-30] MEDS ORDERED: Magnesium Replacement Protocol 1 EACH MISC MISCELLANE PRN (19:22)
[2020-03-30 21:02] LABS: Glucose,Whole Blood 104 mg/dL (75-99)
[2020-03-30] MEDS: CITALOPRAM HYDROBROMIDE 20 MG TAB PO SCH (21:10)
[2020-03-30] MEDS: ATORVASTATIN 80 MG TAB PO SCH (21:10)
[2020-03-30] MEDS: CYANOCOBALAMIN 1,000 MCG/ML 1 ML VIAL IM SCH (21:19)
[2020-03-31] MEDS: MAGNESIUM SULFATE-D5W PMX 1 GM in DEXTROSE/WATER 1 100ML.BAG IVPB SCH ×3 (00:06→04:36)
[2020-03-31] MEDS: HEPARIN SODIUM,PORCINE 5,000 UNIT/ML 1 ML VIAL SQ SCH ×2 (00:16→08:25)
[2020-03-31] MEDS: POTASSIUM CHLORIDE 10 MEQ in WATER FOR INJECTION 1 100ML.BAG IVPB SCH ×6 (01:20→19:43)
[2020-03-31 07:17] LABS: Glucose,Whole Blood 89 mg/dL (75-99)
[2020-03-31] MEDS: INSULIN ASPART (NovoLOG) 100 UNIT/ML VIAL SQ SCH ×4 (08:07→21:00)
[2020-03-31] MEDS: PANTOPRAZOLE 40 MG TABLET PO SCH (08:25)
[2020-03-31] MEDS: ASPIRIN 81 MG PO SCH (08:25)
[2020-03-31] MEDS: CARVEDILOL 6.25 MG TAB PO SCH ×2 (08:25→17:50)
[2020-03-31] MEDS: hydrALAZINE HCL 50 MG TAB PO SCH ×2 (08:26→21:01)
[2020-03-31] MEDS: MAGNESIUM OXIDE 400 MG TAB PO SCH ×2 (08:26→21:01)
[2020-03-31] MEDS: CYANOCOBALAMIN 1,000 MCG/ML 1 ML VIAL IM SCH (08:26)
[2020-03-31] MEDS: levETIRAcetam 250 MG TAB PO SCH ×2 (08:26→21:01)
[2020-03-31] MEDS: CYANOCOBALAMIN-FA-PYRIDOXINE 1 EACH TAB PO SCH (08:26)
[2020-03-31] MEDS: LOSARTAN 50 MG TAB PO SCH (08:26)
[2020-03-31] MEDS: APIXABAN 5 MG TAB PO SCH ×2 (10:05→21:01)
[2020-03-31 11:03] LABS: ALT 11 U/L (4-34); AST 21 U/L (14-36); African American GFR (CKD) >90 (>60 ml/min/1.73 sqM); Albumin 1.9 g/dL (3.5-5.0); Alkaline Phosphatase 86 U/L (38-126); Anion Gap 3 mmol/L; Blood Urea Nitrogen 7 mg/dL (7-17); Calcium 8.3 mg/dL (8.4-10.2); Carbon Dioxide 24 mmol/L (22-30); Chloride 110 mmol/L (98-107); Glucose 79 mg/dL (74-99); Magnesium 1.9 mg/dL (1.6-2.3); Non-African American GFR(CKD) >90 (>60 ml/min/1.73 sqM); Potassium 3.5 mmol/L (3.5-5.1); Sodium 137 mmol/L (137-145); Total Bilirubin 0.4 mg/dL (0.2-1.3); Total Protein 4.5 g/dL (6.3-8.2)
[2020-03-31 11:08] LABS: IgG - CSF 4.9 mg/dL (0.0 - 3.4); IgG Synthesis Rate 0.36 mg/day (0.00 - 3.00); IgG/Albumin Index (CSF) 0.51 (0.00 - 0.77); Immunoglobulin G 865 mg/dL (700 - 1600)
[2020-03-31 11:16] LABS: Glucose,Whole Blood 108 mg/dL (75-99)
[2020-03-31 11:18] LABS: Anisocytosis Slight; Basophils % (A) 0 %; Eosinophils # (A) 0.1 k/uL (0-0.7); Eosinophils % (A) 4 %; HCT 27.3 % (34.0-46.0); HGB 8.7 gm/dL (11.4-16.0); Hypochromasia Marked; Lymphocytes # (A) 1.2 k/uL (1.0-4.8); Lymphocytes % (A) 31 %; MCH 27.5 pg (25.0-35.0); MCHC 31.8 g/dL (31.0-37.0); MCV 86.5 fL (80.0-100.0); Mean Platelet Volume 8.1; Monocytes # (A) 0.2 k/uL (0-1.0); Monocytes % (A) 5 %; Neutrophils # (A) 2.3 k/uL (1.3-7.7); Neutrophils % (A) 59 %; Platelet Count 219 k/uL (150-450); RBC 3.15 m/uL (3.80-5.40); RDW 18.1 % (11.5-15.5); WBC 3.9 k/uL (3.8-10.6)
[2020-03-31] MEDS ORDERED: MAGNESIUM SULFATE-D5W PMX 1 GM in DEXTROSE/WATER 1 100ML.BAG IVPB ONE ×2 (11:44→13:58)
--- NOTE | 2020-03-31 12:28 | P.CRDCN ---
History of Present Illness History of present illness: HISTORY OF PRESENTING ILLNESS This is a pleasant 64-year-old female past medical history significant for paroxysmal atrial fibrillation previously on Eliquis, diabetes mellitus, hy pertension, dyslipidemia, CVA and peripheral vascular disease s/p carotid endartectomy. She follows in the office with Dr. Alicea. We have been asked to see in consultation for anti-coagulation recommendations. She is seen and examined laying flat resting comfortably sleeping in bed. She is confused and not conversing appropriately. Information is obtained from nursing staff and medical record. Apparently sometime between January and now the eliquis was stopped due to cost. This was discussed with Dr. Holley per the family. The question is now to resume it given her history of CVA and paroxysmal afib. The recommendation is to continue, however this is a decision that must be agreed upon by the family. She is currently admitted to the hospital with failure to thrive and progressively worsening altered mental status. She was found to have urinary tract infection along with significant electrolytes abnormalities. She has been admitted for the past 8 days. Hemoglobin on admission was 10.4. R epeat from yesterday was 8.5. DIAGNOSTICS EKG reveals sinus mechanism with nonspecific ST abnormalities inferolaterally. Chest xray mild cardiomegaly. Laboratory reviewed, WBC 4.2, hemoglobin 8.5, platelets 212, sodium 138, potassium 3.6, creatinine 0.57, magnesium 1.4. Current cardiac medications include aspirin 81 mg daily, atorvastatin 80 mg daily, carvedilol 6.25 mg twice a day, losartan 100 mg daily and hydralazine 50 mg twice a day. Most recent echocardiogram obtained January 2020 revealed preserved LV systolic function with ejection fraction 55-60%, mild aortic regurgitation, mild mitral regurgitation and mild tricuspid regurgitation noted. REVIEW OF SYSTEMS At the time of my exam: CONSTITUTIONAL: Denies fever or chills. CARDIOVASCULAR: Denies chest pain, shortness of breath, orthopnea, PND or palpitations. RESPIRATORY: Denies cough. GASTROINTESTINAL: Denies abdominal pain, diarrhea, constipation, nausea or vomiting. MUSCULOSKELETAL: Denies myalgias. NEUROLOGIC: Denies numbness, tingling or weakness. ENDOCRINE: Denies fatigue, weight change, polydipsia or polyurina. GENITOURINARY: Denies burning, hematuria or urgency with micturation. HEMATOLOGIC: Denies history of anemia or bleeding. PHYSICAL EXAMINATION Blood pressure 167/76 heart rate 74 afebrile and maintaining oxygen saturation on room air. CONSTITUTIONAL: No apparent distress. HEENT: Head is normocephalic. Pupils are equal, round. Sclerae anicteric. Mucous membranes of the mouth are moist. No JVD. No carotid bruit. CHEST EXAMINATION: Lungs are clear to auscultation. No chest wall tenderness is noted on palpation or with deep breathing. Diminished bilaterally. HEART EXAMINATION: Regular rate and rhythm. S1, S2 heard. No murmurs, gallops or rub. ABDOMEN: Soft, nontender. Positive bowel sounds. EXTREMITIES: 2+ peripheral pulses, no lower extremity edema and no calf tenderness. NEUROLOGIC EXAMINATION: Patient is awake, alert and oriented x3. ASSESSMENT Altered mental status with vascular dementia Urinary tract infection Failure to thrive Hypomagnesemia, replace Paroxysmal atrial fibrillation Hypertension Dyslipidemia Peripheral vascular disease PLAN Dr. Woo discussed the case with the and they are now in agreement to resume Eliquis. The patient will be going to [facility] upon discharge. Nurse Practitioner note has been reviewed, I agree with a documented findings and plan of care. Patient was seen and examined. Past Medical History Past Medical History: Atrial Fibrillation, CVA/TIA, Diabetes Mellitus, Hypertension Additional Past Medical History / Comment(s): cva x3- lt sided weakness, pt states she is unable to walk and is bedbound History of Any Multi-Drug Resistant Organisms: ESBL, MRSA Date of last positivie culture/infection: 02/28/20 ESBL MDRO Source:: URINE Past Surgical History: Tubal Ligation Additional Past Surgical History / Comment(s): CAROTID ENDART TO CLEAN OUT NECK ARTERY LEFT; sewer hand chip placed Past Anesthesia/Blood Transfusion Reactions: No Reported Reaction Past Psychological History: Depression Smoking Status: Former smoker Past Alcohol Use History: None Reported Past Drug Use History: None Reported - Past Family History Brother(s) Family Medical History: No Reported History Sister(s) Family Medical History: Diabetes Mellitus Additional Family Medical History / Comment(s): RENAL FAILURE, ABCESSES Mother Additional Family Medical History / Comment(s): Brain Aneurism. Father Family Medical History: Diabetes Mellitus Medications and Allergies Home Medications Medication Instructions Recorded Confirmed Type metFORMIN HCL [Glucophage] 500 mg PO AC-BID 05/30/16 03/22/20 History Atorvastatin [Lipitor] 80 mg PO HS 03/22/19 03/22/20 History Losartan Potassium 100 mg PO DAILY 03/22/19 03/22/20 History Pantoprazole [Protonix] 40 mg PO DAILY 03/22/19 03/22/20 History Citalopram Hydrobromide [CeleXA] 40 mg PO HS 07/06/19 03/22/20 History Acetaminophen Tab [Tylenol] 650 mg PO Q6HR PRN tab 11/12/19 03/22/20 Rx Carvedilol [Coreg] 6.25 mg PO BID-W/MEALS 30 Days #60 01/20/20 03/22/20 Rx tab Cyclobenzaprine HCl 10 mg PO HS 02/04/20 03/22/20 History hydrALAZINE HCL [Apresoline] 50 mg PO BID 03/05/20 03/22/20 History levETIRAcetam [Keppra] 500 mg PO Q12HR 03/05/20 03/22/20 History Aspirin EC [Ecotrin Low Dose] 81 mg PO DAILY 03/22/20 03/22/20 History Allergies Allergy/AdvReac Type Severity Reaction Status Date / Time lorazepam [From Ativan] Allergy Unknown Verified 03/22/20 19:53 Physical Exam Vitals: Vital Signs Temp Pulse Resp BP Pulse Ox 03/31/20 07:00 98.5 F 74 17 167/76 99 03/31/20 03:36 150/79 03/31/20 01:00 97.9 F 72 20 166/67 99 03/30/20 20:04 98.4 F 65 16 163/71 97 03/30/20 14:00 98 F 70 16 163/73 97 Intake and Output 03/30/20 03/31/20 03/31/20 22:59 06:59 14:59 Intake Total 400 Output Total 460 Balance 400 -460 Intake: Intake, IV Titration 400 Amount Sodium Chloride 0.9% 1, 400 000 ml @ 50 mls/hr IV . Q20H [facility] Rx#:[id number] Output: Urine 460 Other: Voiding Method Indwelling Catheter Results 03/31/20 09:54 03/31/20 09:54 CBC 03/30/20 Range/Units 08:59 WBC 4.2 (3.8-10.6) k/uL RBC 3.07 L (3.80-5.40) m/uL Hgb 8.5 L (11.4-16.0) gm/dL Hct 26.5 L (34.0-46.0) % Plt Count 212 (150-450) k/uL Comprehensive Metabolic Panel 03/30/20 Range/Units 08:59 Sodium 138 (137-145) mmol/L Potassium 3.6 (3.5-5.1) mmol/L Chloride 113 H (98-107) mmol/L Carbon Dioxide 22 (22-30) mmol/L BUN 8 (7-17) mg/dL Creatinine 0.57 (0.52-1.04) mg/dL Glucose 83 (74-99) mg/dL Calcium 8.5 (8.4-10.2) mg/dL Current Medications Generic Name Dose Route Start Last Admin Trade Name Freq PRN Reason Stop Dose Admin Acetaminophen 650 mg 03/22/20 20:32 03/29/20 07:50 Tylenol Tab PO 650 mg Q6HR PRN Administration Fever and/ or Pain Aspirin 81 mg 03/23/20 09:00 03/31/20 08:25 Aspirin PO 81 mg DAILY [facility] Administration Atorvastatin Calcium 80 mg 03/22/20 21:00 03/30/20 21:10 Lipitor PO 80 mg HS [facility] Administration Carvedilol 6.25 mg 03/22/20 20:45 03/31/20 08:25 Coreg PO 6.25 mg BID-W/MEALS [facility] Administration Citalopram Hydrobromide 40 mg 03/22/20 21:00 03/30/20 21:10 Celexa PO 40 mg HS [facility] Administration Cyanocobalamin 1,000 mcg 03/30/20 19:30 03/31/20 08:26 Vitamin B-12 IM 03/31/20 09:01 1,000 mcg DAILY [facility] Administration Cyanocobalamin 1,000 mcg 04/01/20 09:00 Vitamin B-12 PO DAILY [facility] Docusate Sodium 100 mg 03/30/20 01:13 Colace PO DAILY PRN Constipation Folic Acid 1 each 03/25/20 18:45 03/31/20 08:26 Folbic PO 1 each DAILY [facility] Administration Heparin Sodium (Porcine) 5,000 unit 03/23/20 00:00 03/31/20 08:25 Heparin SQ 5,000 unit Q8HR [facility] Administration Hydralazine HCl 50 mg 03/22/20 21:00 03/31/20 08:26 Apresoline PO 50 mg BID [facility] Administration Sodium Chloride 1,000 mls @ 50 mls/hr 03/22/20 15:00 03/30/20 17:18 Saline 0.9% IV 50 mls/hr .Q20H [facility] Administration Insulin Aspart 0 unit 03/22/20 21:00 03/31/20 08:07 Novolog SQ Not Given ACHS [facility] Protocol Levetiracetam 750 mg 03/24/20 21:00 03/31/20 08:26 Keppra PO 750 mg Q12HR [facility] Administration Losartan Potassium 100 mg 03/22/20 20:45 03/31/20 08:26 Cozaar PO 100 mg DAILY [facility] Administration Magnesium Oxide 400 mg 03/31/20 09:00 03/31/20 08:26 Mag-Ox PO 400 mg BID [facility] Administration Miscellaneous Information 1 each 03/22/20 21:08 Potassium Per Protocol MISCELLANE DAILY PRN Per Protocol Protocol Miscellaneous Information 1 each 03/30/20 19:22 Magnesium Per Protocol MISCELLANE DAILY PRN Per Protocol Protocol Naloxone HCl 0.2 mg 03/22/20 14:48 Narcan IV Q2M PRN Opioid Reversal Ondansetron HCl 4 mg 03/22/20 14:48 Zofran IVP Q8HR PRN Nausea And Vomiting Pantoprazole Sodium 40 mg 03/23/20 07:30 03/31/20 08:25 Protonix PO 40 mg AC-BRKFST [facility] Administration Intake and Output 03/30/20 03/31/20 03/31/20 22:59 06:59 14:59 Intake Total 400 Output Total 460 Balance 400 -460 Intake: Intake, IV Titration 400 Amount Sodium Chloride 0.9% 1, 400 000 ml @ 50 mls/hr IV . Q20H [facility] Rx#:[id number] Output: Urine 460 Other: Voiding Method Indwelling Catheter 03/30/20 08:59 03/30/20 08:59
[2020-03-31] MEDS: POTASSIUM CHLORIDE ER 20 MEQ TAB.ER PO SCH ×2 (12:39→13:44)
[2020-03-31] MEDS: SODIUM CHLORIDE 0.9% 1,000 ML IV SCH (12:39)
[2020-03-31] MEDS ORDERED: Potassium Replacement Protocol 1 EACH MISC MISCELLANE PRN (13:46)
[2020-03-31 14:51] VITALS: RESP 16
[2020-03-31 16:32] LABS: Glucose,Whole Blood 107 mg/dL (75-99)
--- NOTE | 2020-03-31 19:22 | P.PN ---
Subjective From the records Patient is a 64-year-old female with a known history of hypertension, diabetes type 2 [id number], paroxysmal atrial fibrillation currently not on any anticoagulation, history of CVA with left-sided weakness, history of ESBL urinary tract infection, carotid endarterectomy, depression and previous history of smoking was brought to the hospital by EMS along with her due to complaints of altered mental status and failure to thrive. Patient has been declining health and decreased oral intake. Patient has been drinking only liquids Patient was diagnosed with COVID-19 viral infection about 3 months ago. Patient is off oxygen. Patient still having cough without sputum production. No nausea vomiting or abdominal pain or diarrhea. Patient usually ambulates with a walker. Patient was more confused than normal today and was brought to the hospital by EMS. Patient is a poor historian and most of the history was taken from medical records and her at bedside. EKG showed sinus rhythm with short MT. Prolonged QT. Chest x-ray showed cardiomegaly. Laboratory data showed WBC 6.9, hemoglobin 10.4, platelets 228 INR 1.2 Sodium 134 and potassium 3.0 Chloride 100 and BUN 12 and creatinine 0.56 Magnesium level is 1.0 during onset not elevated albumin 2.6 Urinalysis showed yellow with 1+ ketones moderate leukocyte esterase and 22 WBCs 03/23/2020 Patient is currently lying in the bed comfortably. Patient is more awake and oriented today. POTASSIUM level is 2.5 which is being replaced. Patient is being continued on antibiotics off ceftriaxone for urinary tract infection. Urine culture showed Jyoti albicans. No leukocytosis. Patient has been afebrile. PT OT was consulted. Patient is wheelchair-bound at baseline. Otherwise denied any complaints of chest pain or shortness breath.. 03/24/2020 Patient is currently lying in the bed comfortably but more confused compared to yesterday. Patient has been having on and off episodes of confusion as per family. EEG was ordered and rule out any seizures. Neurology was consulted as well. Keppra dose increased to 750 mg twice daily. Otherwise patient is having decrease of oral intake. Potassium was replaced. 03/25/2020 Patient still is confused. Otherwise patient has been afebrile. No nausea vomiting or diarrhea. Patient does have decreased oral intake. Continued on Keppra dose. Neurology is considering possible COVID-19 later encephalitis. Patient continues to decline her mental status. We will discuss with her caregiver regarding previous anticoagulation and restart if not contraindicated. 03/27 Patient continues to be confused and encephalopathic. Not eating well with. Denied any complaints of headache. No chest pain or shortness of breath. Patient is being continued on IV gentle hydration. Family agreeable for lumbar puncture. Neurology is following. Patient has been afebrile. Laboratory data showed WBC 4.1, hemoglobin 8.5 RDW 16.4, sodium 136, potassium 3.4, chloride 109 BUN 9 and creatinine 0.57 03/27/2020 Patient is still confused. Lumbar puncture was attempted today but was not successful. Patient is afebrile. Continued on gentle hydration. Lethargic and not eating. Denied any complaints of chest pain shortness of breath or abdominal pain. No diarrhea. Neurology is on board. 03/28/2020 Patient is still lethargic and confused this morning. Patient had LP done and fluid analysis for cytology and culture was sent. Neurology is following. Patient is afebrile. Continue antibiotics in the form of ceftriaxone which can be discontinued. Urine culture only showed Jyoti albicans. Patient is on gentle hydration and current medications include Keppra and cyanocobalamin. No nausea vomiting. Patient did have decreased oral intake. Continue with Ensure 3 times daily. 03/29/2020 Patient is more awake and alert and oriented today. Able to recognize her family. Still lethargic. Potassium is done which is being replaced. No complaints of chest pain or shortness of the. No nausea vomiting or abdominal pain. Denies any diarrhea. Patient is being continued on stool softeners. Antibiotics will be discontinued today patient completed antibiotics for urinary tract infection. Otherwise patient is CSF analysis showed no evidence of infection. Neurology is following. PT OT. Encourage oral intake possible discharge to rehab.. Subjective 03/30/2020 This is a pleasant 64 years old female for failure to thrive. Patient is confused and cannot provide information. I spoke with the MrJaylen Segovia over the phone and he told me she's been confused but that that she got worse. She always have left sided weakness from multiples strokes the pubic stroke was about 4 years ago. He was concerned about her inability to eat but according to him she does not ask for food or to be cleaned and it looks like patient could not recognize the surrounding. Neurology already evaluated the patient and she still had negative for lumbar puncture. Workup by neurologist was negative so far and they signed off. Also patient is being treated for UTI which may contribute to her confusion, however patient is afebrile, no leukocytosis. Urine culture is growing Jyoti. MRI from 11/08/2019 showing punctate foci of acute/subacute ischemia throughout the bilateral coronary artery to, and there is background mild to moderate diffuse cerebral atrophy and advanced chronic small vessel ischemic changes with old right-sided posterior watershed infarct At looks to me that the patient has advanced dementia going towards and the stage dementia I discussed with the and they are willing for the patient to go to [facility] for rehab Review of system: N/a, patient could not provide information 03/31/20 I discussed the case with the hydroelectric production technician, it looks like previously the family decided not to start anticoagulation with her PCP Dr. Holley , I spoke with the Mr. Jamar Segovia and explained this patient for him he said he is not sure and he asked me to talk to his daughter ms. Sepideh Desir, who told me they refused the anticoagulation before because the co-pay for Eliquis was $300, However she is telling me it's okay now to Start anticoagulation even if they have co-pay. I explained risks and benefits of an decannulation including but not limited to bleeding into the brain and the stomach, organ dysfunction and/or and she verbalized understanding and acceptance After certain Eliquis I called the daughter again Ms. Bunn and she confirmed to me she agrees with the Eliquis which was started. Patient is medically clear for discharge however her senior living wanted 2 negative Covid test , So discharge was held. Review of systems: N/a Active Medications Generic Name Dose Route Start Last Admin Trade Name Freq PRN Reason Stop Dose Admin Acetaminophen 650 mg 03/22/20 20:32 03/29/20 07:50 Tylenol Tab PO 650 mg Q6HR PRN Administration Fever and/ or Pain Apixaban 5 mg 03/31/20 09:30 03/31/20 10:05 Eliquis PO 5 mg BID [facility] Administration Aspirin 81 mg 03/23/20 09:00 03/31/20 08:25 Aspirin PO 81 mg DAILY [facility] Administration Atorvastatin Calcium 80 mg 03/22/20 21:00 03/30/20 21:10 Lipitor PO 80 mg HS [facility] Administration Carvedilol 6.25 mg 03/22/20 20:45 03/31/20 17:50 Coreg PO 6.25 mg BID-W/MEALS [facility] Administration Citalopram Hydrobromide 40 mg 03/22/20 21:00 03/30/20 21:10 Celexa PO 40 mg HS [facility] Administration Cyanocobalamin 1,000 mcg 04/01/20 09:00 Vitamin B-12 PO DAILY [facility] Docusate Sodium 100 mg 03/30/20 01:13 Colace PO DAILY PRN Constipation Folic Acid 1 each 03/25/20 18:45 03/31/20 08:26 Folbic PO 1 each DAILY [facility] Administration Hydralazine HCl 50 mg 03/22/20 21:00 03/31/20 08:26 Apresoline PO 50 mg BID [facility] Administration Sodium Chloride 1,000 mls @ 50 mls/hr 03/22/20 15:00 03/31/20 12:39 Saline 0.9% IV 50 mls/hr .Q20H [facility] Administration Insulin Aspart 0 unit 03/22/20 21:00 03/31/20 16:56 Novolog SQ Not Given ACHS [facility] Protocol Levetiracetam 750 mg 03/24/20 21:00 03/31/20 08:26 Keppra PO 750 mg Q12HR [facility] Administration Losartan Potassium 100 mg 03/22/20 20:45 03/31/20 08:26 Cozaar PO 100 mg DAILY [facility] Administration Magnesium Oxide 400 mg 03/31/20 09:00 03/31/20 08:26 Mag-Ox PO 400 mg BID [facility] Administration Miscellaneous Information 1 each 03/22/20 21:08 Potassium Per Protocol MISCELLANE DAILY PRN Per Protocol Protocol Miscellaneous Information 1 each 03/30/20 19:22 Magnesium Per Protocol MISCELLANE DAILY PRN Per Protocol Protocol Miscellaneous Information 1 each 03/31/20 13:46 Potassium Per Protocol MISCELLANE DAILY PRN Per Protocol Protocol Naloxone HCl 0.2 mg 03/22/20 14:48 Narcan IV Q2M PRN Opioid Reversal Ondansetron HCl 4 mg 03/22/20 14:48 Zofran IVP Q8HR PRN Nausea And Vomiting Pantoprazole Sodium 40 mg 03/23/20 07:30 03/31/20 08:25 Protonix PO 40 mg AC-BRKFST [facility] Administration Objective - Vital Signs Vital signs: Vital Signs Temp 97.9 F 03/31/20 14:50 Pulse 63 03/31/20 14:50 Resp 16 03/31/20 14:50 BP 161/76 03/31/20 14:50 Pulse Ox 97 03/31/20 14:50 Intake & Output 03/31/20 03/31/20 04/01/20 06:59 18:59 06:59 Intake Total 400 200 Output Total 460 600 Balance -60 -400 Weight 108.862 kg Intake: Intake, IV Titration 400 200 Amount Magnesium Sulfate-D5w Pmx 100 1 gm In Dextrose/Water 1 100ml.bag @ 100 mls/hr IVPB ONCE ONE Rx#: [id number] Potassium Chloride 10 meq 100 In Water For Injection 1 100ml.bag @ 100 mls/hr IVPB Q1HR [facility] Rx#: [id number] Sodium Chloride 0.9% 1, 400 000 ml @ 50 mls/hr IV . Q20H [facility] Rx#:[id number] Output: Urine 460 600 Uretheral (Goodman) 600 Other: Voiding Method Indwelling Catheter Indwelling Catheter - Exam -GENERAL: The patient is but confused, she does not follow command. She is obese HEENT: Pupils are round and equally reacting to light. EOMI. No scleral icterus. No conjunctival pallor. Normocephalic, atraumatic. No pharyngeal erythema. No thyromegaly. CARDIOVASCULAR: S1 and S2 present. No murmurs, rubs, or gallops. PULMONARY: Chest is clear to auscultation, no wheezing or crackles. ABDOMEN: Soft, nontender, nondistended, normoactive bowel sounds. No palpable organomegaly. MUSCULOSKELETAL: No joint swelling or deformity. EXTREMITIES: No cyanosis, clubbing, or pedal edema. -NEUROLOGICAL: Gross neurological examination did not reveal any focal deficits. Left hemiparesis SKIN: No rashes. no petechiae. - Labs CBC & Chem 7: 03/31/20 09:54 03/31/20 09:54 Labs: Abnormal Lab Results - Last 24 Hours (Table) 03/28/20 03/30/20 03/30/20 Range/Units 13:50 08:59 20:58 RBC (3.80-5.40) m/uL Hgb (11.4-16.0) gm/dL Hct (34.0-46.0) % RDW (11.5-15.5) % Chloride (98-107) mmol/L POC Glucose (mg/dL) 104 H (75-99) mg/dL Calcium (8.4-10.2) mg/dL Magnesium 1.4 L (1.6-2.3) mg/dL Total Protein (6.3-8.2) g/dL Albumin (3.5-5.0) g/dL CSF IgG (MS) 4.9 H (0.0 - 3.4) mg/dL Serum Albumin 2,150 L (3500 - 5200) mg/dL 03/31/20 03/31/20 03/31/20 Range/Units 09:54 09:54 11:14 RBC 3.15 L (3.80-5.40) m/uL Hgb 8.7 L (11.4-16.0) gm/dL Hct 27.3 L (34.0-46.0) % RDW 18.1 H (11.5-15.5) % Chloride 110 H (98-107) mmol/L POC Glucose (mg/dL) 108 H (75-99) mg/dL Calcium 8.3 L (8.4-10.2) mg/dL Magnesium (1.6-2.3) mg/dL Total Protein 4.5 L (6.3-8.2) g/dL Albumin 1.9 L (3.5-5.0) g/dL CSF IgG (MS) (0.0 - 3.4) mg/dL Serum Albumin (3500 - 5200) mg/dL 03/31/20 Range/Units 16:30 RBC (3.80-5.40) m/uL Hgb (11.4-16.0) gm/dL Hct (34.0-46.0) % RDW (11.5-15.5) % Chloride (98-107) mmol/L POC Glucose (mg/dL) 107 H (75-99) mg/dL Calcium (8.4-10.2) mg/dL Magnesium (1.6-2.3) mg/dL Total Protein (6.3-8.2) g/dL Albumin (3.5-5.0) g/dL CSF IgG (MS) (0.0 - 3.4) mg/dL Serum Albumin (3500 - 5200) mg/dL Microbiology - Last 24 Hours (Table) 03/28/20 13:00 Acid Fast Bacilli Smear - Final Cerebral Spinal Fluid Acid Fast Bacilli Culture - Preliminary 03/28/20 13:00 CSF Gram Stain - Preliminary Cerebral Spinal Fluid CSF Culture - Preliminary 03/28/20 13:00 Fungal Culture - Preliminary Cerebral Spinal Fluid Assessment and Plan Assessment: Altered mental status possible metabolic encephalopathy with infection. Improving. Advanced dementia, vascular dementia. Acute urinary tract infection. . Urine culture showed Jyoti albicans. Severe hypokalemia and hypomagnesemia. replaced Hypovolemic hyponatremia Vascular dementia. History of seizure disorder Failure to thrive Recent COVID-19 viral infection 2 months ago. Currently on room air Diabetes type 2 [id number] History of CVA with left-sided weakness. Hypertension Paroxysmal atrial fibrillation currently not on any anticoagulation History of ESBL urinary tract infection Depression Previous history of smoking Morbid obesity with BMI 41.2 Plan: This is a pleasant 64 years old female who presents with altered mental status, most likely patient has worsening vascular dementia with some elements of metabolic encephalopathy from UTI which is been treated. Patient probably will continue to have worsening mental status with time. Neurology already evaluated the patient and signed out for unremarkable workup. Eliquis is restarted and family agree. Physical therapy recommended home health care versus ECF and has been so like her to go to rehab for 2 weeks but no placement Labs and medication were reviewed.. Continue same treatment. Continue with symptomatic treatment. Resume home medication. Monitor lytes and vitals. DVT and GI prophylaxis. Further recommendations of the clinical course of the patient DVT prophylaxis: Eliquis GI Prophylaxis: Ppi Prognosis is guarded
[2020-03-31 20:37] LABS: Glucose,Whole Blood 89 mg/dL (75-99)
[2020-03-31] MEDS: CITALOPRAM HYDROBROMIDE 20 MG TAB PO SCH (21:01)
[2020-03-31] MEDS: ATORVASTATIN 80 MG TAB PO SCH (21:01)
[2020-04-01 06:19] VITALS: PULSE 76
[2020-04-01] MEDS: hydrALAZINE HCL 50 MG TAB PO SCH (06:21)
[2020-04-01 07:39] LABS: Glucose,Whole Blood 208 mg/dL (75-99)
[2020-04-01 08:05] VITALS: BP 138/80; TEMP 97.4
[2020-04-01] MEDS: INSULIN ASPART (NovoLOG) 100 UNIT/ML VIAL SQ SCH ×2 (08:53→12:40)
[2020-04-01] MEDS: CARVEDILOL 6.25 MG TAB PO SCH (08:54)
[2020-04-01] MEDS: LOSARTAN 50 MG TAB PO SCH (08:54)
[2020-04-01] MEDS: ASPIRIN 81 MG PO SCH (08:54)
[2020-04-01] MEDS: levETIRAcetam 250 MG TAB PO SCH (08:54)
[2020-04-01] MEDS: PANTOPRAZOLE 40 MG TABLET PO SCH (08:55)
[2020-04-01] MEDS: APIXABAN 5 MG TAB PO SCH (08:55)
[2020-04-01] MEDS: CYANOCOBALAMIN-FA-PYRIDOXINE 1 EACH TAB PO SCH (08:55)
[2020-04-01] MEDS: MAGNESIUM OXIDE 400 MG TAB PO SCH (08:55)
[2020-04-01] MEDS: SODIUM CHLORIDE 0.9% 1,000 ML IV SCH (08:55)
[2020-04-01] MEDS ORDERED: CYANOCOBALAMIN 500 MCG TAB PO SCH (09:00)
[2020-04-01 10:12] LABS: Magnesium 1.9 mg/dL (1.6-2.3); Potassium 4.1 mmol/L (3.5-5.1)
[2020-04-01 11:03] LABS: Anisocytosis Slight; Basophils % (A) 0 %; Eosinophils # (A) 0.1 k/uL (0-0.7); Eosinophils % (A) 1 %; HCT 26.2 % (34.0-46.0); HGB 7.9 gm/dL (11.4-16.0); Hypochromasia Moderate; Lymphocytes # (A) 0.8 k/uL (1.0-4.8); Lymphocytes % (A) 18 %; MCH 26.3 pg (25.0-35.0); MCHC 30.3 g/dL (31.0-37.0); MCV 86.8 fL (80.0-100.0); Mean Platelet Volume 8.1; Monocytes # (A) 0.2 k/uL (0-1.0); Monocytes % (A) 5 %; Neutrophils # (A) 3.3 k/uL (1.3-7.7); Neutrophils % (A) 75 %; Platelet Count 185 k/uL (150-450); RBC 3.02 m/uL (3.80-5.40); RDW 18.5 % (11.5-15.5); WBC 4.4 k/uL (3.8-10.6)
[2020-04-01 11:19] LABS: Glucose,Whole Blood 79 mg/dL (75-99)
--- NOTE | 2020-04-01 11:43 | P.DS ---
Providers Date of admission: 03/22/20 14:49 Attending physician: Feli Arguelles Consults: 03/24/20 11:59 Consult Physician Routine Consulting Provider: Tim Finney Consult Reason/Comments: intermittent confusion, possible seizures Do you want consulting provider notified?: Yes 03/28/20 09:36 Consult to Anesthesia Stat Consulting Provider: Anesthesia,Services Consult Reason/Comments: lumbar puncture 03/30/20 13:34 Consult Physician Urgent Consulting Provider: Asuncion Alicea Consult Reason/Comments: afib,does she need anticoagulation Do you want consulting provider notified?: Yes Primary care physician: Rhys Holley Hospital Course: Diagnoses: Altered mental status , mostly related to her advanced dementia, with possible slight worsening and related to her infection, improving and stable possible metabolic encephalopathy with infection. Improving. Advanced dementia, vascular dementia. Patient with previous stroke 3 Acute urinary tract infection. Urine culture showed Jyoti albicans. Severe hypokalemia and hypomagnesemia. replaced Hypovolemic hyponatremia Vascular dementia. History of seizure disorder Failure to thrive Recent COVID-19 viral infection 2 months ago. Currently on room air Diabetes type 2 [id number] History of CVA with left-sided weakness. Hypertension Paroxysmal atrial fibrillation currently not on any anticoagulation History of ESBL urinary tract infection Depression Previous history of smoking Morbid obesity with BMI 41.2 Hospital course: This is a pleasant 64 years old female admitted with confusion. Patient is confused and cannot provide information. I spoke with the Mr. Jamar Segovia over the phone and he told me she's been confused for a while but that that she got worse. She always have left sided weakness from multiples strokes the last stroke was about 4 years ago. He was concerned about her inability to eat but according to him she does not ask for food or to be cleaned and it looks like patient could not recognize the surrounding. Neurology already evaluated the patient and she still had negative for lumbar puncture. Workup by neurologist was negative so far and they signed off. Also patient is being treated for UTI which may contribute to her confusion, however patient is afebrile, no leukocytosis. Urine culture is growing Jyoti. MRI from 11/08/2019 showing punctate foci of acute/subacute ischemia throughout the bilateral coronary artery to, and there is background mild to moderate diffuse cerebral atrophy and advanced chronic small vessel ischemic changes with old right-sided posterior watershed infarct. As per records patient at least had 3 strokes in the past. At looks to me that the patient has advanced dementia I discussed with the and they are willing for the patient to go to ECF for rehab Also I discussed with the and daughter Mrs. Bunn and they are willing to proceed with anticoagulation Eliquis. Risks, benefits and alternatives are explained. Patient will need to monitor her hemoglobin closely every 2-3 days I explained risks and benefits of an anticoagulation including but not limited to bleeding into the brain and the stomach, organ dysfunction and/or and they verbalized understanding and acceptance Problems and management plan were discussed with the patient's and he verbalized understanding and acceptance Patient was found stable and can be discharged to ECF in regards prognosis however she needs follow-up as an outpatient. Recommend to follow up with PCP Dr. Holley within one week . And neurology in 1-2 weeks Gen: patient is a alert, awake but confused, no distress CVS: S1-S2, RRR, no murmur Lungs: B/L CTA, no wheezing Abdomen: soft, no distention, no tenderness, positive bowel sounds Extremity: no leg edema or induration Neuro: Confused, left hemiparesis Time spent more than 35 minutes Patient Condition at Discharge: Fair Plan - Discharge Summary New Discharge Prescriptions: New Docusate [Colace] 100 mg PO DAILY PRN cap PRN Reason: Constipation Apixaban [Eliquis] 5 mg PO BID tab levETIRAcetam [Keppra] 750 mg PO Q12HR tab INSULIN ASPART (NovoLOG) [NovoLOG (formulary)] 0 unit SQ ACHS vial Cyanocobalamin [Vitamin B-12] 1,000 mcg PO DAILY tab Continue Atorvastatin [Lipitor] 80 mg PO HS Pantoprazole [Protonix] 40 mg PO DAILY Losartan Potassium 100 mg PO DAILY Citalopram Hydrobromide [CeleXA] 40 mg PO HS Acetaminophen Tab [Tylenol] 650 mg PO Q6HR PRN tab PRN Reason: Fever And/ Or Pain Carvedilol [Coreg] 6.25 mg PO BID-W/MEALS 30 Days #60 tab hydrALAZINE HCL [Apresoline] 50 mg PO BID Aspirin EC [Ecotrin Low Dose] 81 mg PO DAILY Discontinued metFORMIN HCL [Glucophage] 500 mg PO AC-BID Cyclobenzaprine HCl 10 mg PO HS levETIRAcetam [Keppra] 500 mg PO Q12HR Discharge Medication List Atorvastatin [Lipitor] 80 mg PO HS 03/22/19 [History] Losartan Potassium 100 mg PO DAILY 03/22/19 [History] Pantoprazole [Protonix] 40 mg PO DAILY 03/22/19 [History] Citalopram Hydrobromide [CeleXA] 40 mg PO HS 07/06/19 [History] Acetaminophen Tab [Tylenol] 650 mg PO Q6HR PRN tab 11/12/19 [Rx] Carvedilol [Coreg] 6.25 mg PO BID-W/MEALS 30 Days #60 tab 01/20/20 [Rx] hydrALAZINE HCL [Apresoline] 50 mg PO BID 03/05/20 [History] Aspirin EC [Ecotrin Low Dose] 81 mg PO DAILY 03/22/20 [History] Apixaban [Eliquis] 5 mg PO BID tab 03/31/20 [Rx] Cyanocobalamin [Vitamin B-12] 1,000 mcg PO DAILY tab 03/31/20 [Rx] Docusate [Colace] 100 mg PO DAILY PRN cap 03/31/20 [Rx] INSULIN ASPART (NovoLOG) [NovoLOG (formulary)] 0 unit SQ ACHS vial 03/31/20 [Rx] levETIRAcetam [Keppra] 750 mg PO Q12HR tab 03/31/20 [Rx] Follow up Appointment(s)/Referral(s): Rhys Holley MD [Primary Care Provider] - 1-2 days Asuncion Alicea MD [STAFF PHYSICIAN] - 2 Weeks [facility], [NON-STAFF] - Todd Lopez MD [STAFF PHYSICIAN] - 10 Days (Neurologist) Activity/Diet/Wound Care/Special Instructions: heart healthy diet activity is limited till you see your doctor Please monitor hemoglobin closely every 2-3 days, while she is started recently on Eliquis Discharge Disposition: TRANSFER TO SNF/ECF
[2020-04-01] MEDS ORDERED: FERROUS SULFATE 325 MG TAB PO SCH (11:45)
[2020-04-01 11:48] LABS: Poikilocytosis (M) Present
== END 2020-04-01 14:25 | DRG 757 ==
LOC: EC 11:59 → 4SSUR 14:49
PROVIDERS: ADMIT Internal Medicine; ATTEND Internal Medicine
PROC: 00JU3ZZ Inspection of Spinal Canal, Percutaneous Approach (ICD-10-PCS; principal; 2020-03-27 08:20)
DX: B37.49 Other urogenital candidiasis (principal); L89.153 Pressure ulcer of sacral region, stage 3; G92 Toxic encephalopathy; E87.1 Hypo-osmolality and hyponatremia; I69.354 Hemiplegia and hemiparesis following cerebral infarction affecting left non-dominant side; Z68.41 Body mass index [BMI] 40.0-44.9, adult; E11.51 Type 2 diabetes mellitus with diabetic peripheral angiopathy without gangrene; E11.622 Type 2 diabetes mellitus with other skin ulcer; E66.01 Morbid (severe) obesity due to excess calories; E78.5 Hyperlipidemia, unspecified; E83.42 Hypomagnesemia; E86.0 Dehydration; E86.1 Hypovolemia; E87.6 Hypokalemia; F01.50 Vascular dementia, unspecified severity, without behavioral disturbance, psychotic disturbance, mood disturbance, and anxiety; F32.9 Major depressive disorder, single episode, unspecified; G40.909 Epilepsy, unspecified, not intractable, without status epilepticus; I10 Essential (primary) hypertension; I35.8 Other nonrheumatic aortic valve disorders; I48.0 Paroxysmal atrial fibrillation; K59.00 Constipation, unspecified; R62.7 Adult failure to thrive; Z79.84 Long term (current) use of oral hypoglycemic drugs; Z79.899 Other long term (current) drug therapy; Z79.82 Long term (current) use of aspirin; Z83.3 Family history of diabetes mellitus; Z87.440 Personal history of urinary (tract) infections; Z87.891 Personal history of nicotine dependence; Z74.01 Bed confinement status; Z99.3 Dependence on wheelchair; Z86.19 Personal history of other infectious and parasitic diseases; Z86.14 Personal history of Methicillin resistant Staphylococcus aureus infection; Z84.1 Family history of disorders of kidney and ureter; Z82.49 Family history of ischemic heart disease and other diseases of the circulatory system; Z88.8 Allergy status to other drugs, medicaments and biological substances
CPT/HCPCS: 36410; 36415; 62328; 71046; 76937; 80048; 80053; 81001; 82040; 82042; 82164; 82550; 82607; 82746; 82784; 82945; 83605; 83735; 83916; 84132; 84145; 84157; 84484; 85025; 85610; 85730; 86780; 87040; 87070; 87086; 87102; 87116; 87205; 87206; 87252; 87327; 87496; 87498; 87529; 87798; 89050; 93005; 95816; 96361; 96365; 96368; 99285

== ENCOUNTER 2020-12-08 11:54 | Inpatient (IN) | payer MEDICARE, BC ==
--- NOTE | 2020-12-08 12:47 | ED ---
General Adult HPI - General Chief complaint: Shortness of Breath Stated complaint: Low 02 sob Time Seen by Provider: 12/08/20 12:00 Source: patient, RN notes reviewed, old records reviewed Mode of arrival: wheelchair Limitations: altered mental status, physical limitation - History of Present Illness Initial comments: This a 65-year-old female with past mental history significant for congestive heart failure, diabetes, atrial fibrillation and is on a blood thinner, high blood pressure and was recently diagnosed with covert in his symptoms [facility] ed. Patient comes in today because she was having some respiratory distress earlier and family states that her pulse ox was in the 70s. Patient arrived here his pulse ox on room air was 80-85 placed on 4 L of oxygen she is currently 99% in bed. Patient also had a stroke and has complete left-sided paralysis per family. Patient states she has no difficulty breathing currently and has no pain anywhere however she is somewhat of a poor historian. Patient has had no fever chills according to family there's been no complaint of abdominal pain no nausea vomiting. Patient denies any headache patient denies numbness weakness. - Related Data Home Medications Medication Instructions Recorded Confirmed Atorvastatin [Lipitor] 80 mg PO HS 03/22/19 12/08/20 Losartan Potassium 100 mg PO DAILY 03/22/19 12/08/20 Citalopram Hydrobromide [CeleXA] 40 mg PO DAILY 07/06/19 12/08/20 hydrALAZINE HCL [Apresoline] 50 mg PO TID 03/05/20 12/08/20 amLODIPine [Norvasc] 10 mg PO DAILY 12/08/20 12/08/20 levETIRAcetam [Keppra] 1,000 mg PO Q12HR 12/08/20 12/08/20 metFORMIN HCL [Glucophage] 500 mg PO BID 12/08/20 12/08/20 traZODone HCL 50 mg PO HS 12/08/20 12/08/20 Previous Rx's Medication Instructions Recorded carvediloL [Coreg] 6.25 mg PO BID-W/MEALS 30 Days #60 01/20/20 tab Apixaban [Eliquis] 5 mg PO BID tab 03/31/20 Allergies Allergy/AdvReac Type Severity Reaction Status Date / Time lorazepam [From Ativan] Allergy Unknown Verified 12/08/20 13:50 Review of Systems ROS Statement: Those systems with pertinent positive or pertinent negative responses have been documented in the HPI. ROS Other: All systems not noted in ROS Statement are negative. Past Medical History Past Medical History: Atrial Fibrillation, CVA/TIA, Diabetes Mellitus, Hypertension Additional Past Medical History / Comment(s): cva x3- lt sided weakness History of Any Multi-Drug Resistant Organisms: ESBL, MRSA Date of last positivie culture/infection: 04/08/20 MRSA 02/28/20 ESBL MDRO Source:: MRSA BUTTOCK/ ESBL URINE Past Surgical History: Tubal Ligation Additional Past Surgical History / Comment(s): CAROTID ENDART TO CLEAN OUT NECK ARTERY LEFT; cardiac/vascular sonographer chip placed Past Anesthesia/Blood Transfusion Reactions: No Reported Reaction Past Psychological History: Depression Smoking Status: Former smoker Past Alcohol Use History: None Reported Past Drug Use History: None Reported - Past Family History Brother(s) Family Medical History: No Reported History Sister(s) Family Medical History: Diabetes Mellitus Additional Family Medical History / Comment(s): RENAL FAILURE, ABCESSES Mother Additional Family Medical History / Comment(s): Brain Aneurism. Father Family Medical History: Diabetes Mellitus General Exam - General Exam Comments Initial Comments: GENERAL: Patient is well-developed and well-nourished. Patient is nontoxic and well- hydrated and is in no acute distress. ENT: Neck is soft and supple. No significant lymphadenopathy is noted. Oropharynx is clear. Moist mucous membranes. Neck has full range of motion without eliciting any pain. EYES: The sclera were anicteric and conjunctiva were pink and moist. Extraocular movements were intact and pupils were equal round and reactive to light. Eyelids were unremarkable. PULMONARY: Unlabored respirations. Good breath sounds bilaterally. No audible rales rhonchi or wheezing was noted. CARDIOVASCULAR: There is a regular rate and rhythm without any murmurs gallops or rubs. ABDOMEN: Soft and nontender with normal bowel sounds. SKIN: Skin is clear with no lesions or rashes and otherwise unremarkable. NEUROLOGIC: Patient is alert and oriented 2 family states that this is baseline. Cranial nerves II through XII are grossly intact. Patient is unable to move the left side of her body MUSCULOSKELETAL: No lower extremity swelling or edema. No calf tenderness. LYMPHATICS: No significant lymphadenopathy is noted PSYCHIATRIC: Normal psychiatric evaluation. Limitations: altered mental status, physical limitation Course Vital Signs 12/08/20 12/08/20 12/08/20 11:59 12:15 12:18 Temperature 98.4 F Pulse Rate 61 Respiratory 22 22 18 Rate Blood Pressure 155/66 O2 Sat by Pulse 85 L 82 L 97 Oximetry 12/08/20 12/08/20 12:44 13:44 Temperature Pulse Rate 64 Respiratory 18 16 Rate Blood Pressure 142/59 O2 Sat by Pulse 94 L 94 L Oximetry Medical Decision Making - Medical Decision Making EKG shows normal sinus rhythm at 61 bpm UT interval 152 QRS is 82 QT interval is 452 QTC is 455. Patient's EKG shows no ST segment elevation or depression. Chest x-ray shows congestive heart failure I gave the patient Lasix and Nitropaste. I spoke with Nasim and he agreed to admit the patient admitted the patient I wrote admitting orders. I consulted cardiology - Lab Data Result diagrams: 12/08/20 12:47 12/08/20 12:47 Lab Results 12/08/20 12/08/20 12/08/20 Range/Units 12:47 12:47 12:47 WBC 6.1 (3.8-10.6) k/uL RBC 3.75 L (3.80-5.40) m/uL Hgb 8.3 L (11.4-16.0) gm/dL Hct 28.7 L (34.0-46.0) % MCV 76.5 L (80.0-100.0) fL MCH 22.0 L (25.0-35.0) pg MCHC 28.8 L (31.0-37.0) g/dL RDW 15.5 (11.5-15.5) % Plt Count 308 (150-450) k/uL MPV 7.5 Neutrophils % 72 % Lymphocytes % 22 % Monocytes % 5 % Eosinophils % 1 % Basophils % 0 % Neutrophils # 4.4 (1.3-7.7) k/uL Lymphocytes # 1.3 (1.0-4.8) k/uL Monocytes # 0.3 (0-1.0) k/uL Eosinophils # 0.1 (0-0.7) k/uL Basophils # 0.0 (0-0.2) k/uL Hypochromasia Marked Poikilocytosis Slight Microcytosis Slight PT 11.6 (9.0-12.0) sec INR 1.1 (<1.2) APTT 27.2 (22.0-30.0) sec D-Dimer 0.43 (<0.60) mg/L FEU VBG pH (7.31-7.41) VBG pCO2 (37-51) mmHg VBG HCO3 (24-28) mmol/L Sodium 137 (137-145) mmol/L Potassium 5.1 (3.5-5.1) mmol/L Chloride 104 (98-107) mmol/L Carbon Dioxide 26 (22-30) mmol/L Anion Gap 7 mmol/L BUN 18 H (7-17) mg/dL Creatinine 0.64 (0.52-1.04) mg/dL Est GFR (CKD-EPI)AfAm >90 (>60 ml/min/1.73 sqM) Est GFR (CKD-EPI)NonAf >90 (>60 ml/min/1.73 sqM) Glucose 107 H (74-99) mg/dL Plasma Lactic Acid Rock (0.7-2.0) mmol/L Calcium 9.8 (8.4-10.2) mg/dL Magnesium 1.5 L (1.6-2.3) mg/dL Total Bilirubin 0.5 (0.2-1.3) mg/dL AST 15 (14-36) U/L ALT 6 (4-34) U/L Alkaline Phosphatase 73 (38-126) U/L Troponin I (0.000-0.034) ng/mL NT-Pro-B Natriuret Pep pg/mL Total Protein 6.4 (6.3-8.2) g/dL Albumin 3.5 (3.5-5.0) g/dL 12/08/20 12/08/20 12/08/20 Range/Units 12:47 12:47 12:47 WBC (3.8-10.6) k/uL RBC (3.80-5.40) m/uL Hgb (11.4-16.0) gm/dL Hct (34.0-46.0) % MCV (80.0-100.0) fL MCH (25.0-35.0) pg MCHC (31.0-37.0) g/dL RDW (11.5-15.5) % Plt Count (150-450) k/uL MPV Neutrophils % % Lymphocytes % % Monocytes % % Eosinophils % % Basophils % % Neutrophils # (1.3-7.7) k/uL Lymphocytes # (1.0-4.8) k/uL Monocytes # (0-1.0) k/uL Eosinophils # (0-0.7) k/uL Basophils # (0-0.2) k/uL Hypochromasia Poikilocytosis Microcytosis PT (9.0-12.0) sec INR (<1.2) APTT (22.0-30.0) sec D-Dimer (<0.60) mg/L FEU VBG pH (7.31-7.41) VBG pCO2 (37-51) mmHg VBG HCO3 (24-28) mmol/L Sodium (137-145) mmol/L Potassium (3.5-5.1) mmol/L Chloride (98-107) mmol/L Carbon Dioxide (22-30) mmol/L Anion Gap mmol/L BUN (7-17) mg/dL Creatinine (0.52-1.04) mg/dL Est GFR (CKD-EPI)AfAm (>60 ml/min/1.73 sqM) Est GFR (CKD-EPI)NonAf (>60 ml/min/1.73 sqM) Glucose (74-99) mg/dL Plasma Lactic Acid Rock 1.5 (0.7-2.0) mmol/L Calcium (8.4-10.2) mg/dL Magnesium (1.6-2.3) mg/dL Total Bilirubin (0.2-1.3) mg/dL AST (14-36) U/L ALT (4-34) U/L Alkaline Phosphatase (38-126) U/L Troponin I <0.012 (0.000-0.034) ng/mL NT-Pro-B Natriuret Pep 748 pg/mL Total Protein (6.3-8.2) g/dL Albumin (3.5-5.0) g/dL 12/08/20 Range/Units 12:47 WBC (3.8-10.6) k/uL RBC (3.80-5.40) m/uL Hgb (11.4-16.0) gm/dL Hct (34.0-46.0) % MCV (80.0-100.0) fL MCH (25.0-35.0) pg MCHC (31.0-37.0) g/dL RDW (11.5-15.5) % Plt Count (150-450) k/uL MPV Neutrophils % % Lymphocytes % % Monocytes % % Eosinophils % % Basophils % % Neutrophils # (1.3-7.7) k/uL Lymphocytes # (1.0-4.8) k/uL Monocytes # (0-1.0) k/uL Eosinophils # (0-0.7) k/uL Basophils # (0-0.2) k/uL Hypochromasia Poikilocytosis Microcytosis PT (9.0-12.0) sec INR (<1.2) APTT (22.0-30.0) sec D-Dimer (<0.60) mg/L FEU VBG pH 7.34 (7.31-7.41) VBG pCO2 48 (37-51) mmHg VBG HCO3 25 (24-28) mmol/L Sodium (137-145) mmol/L Potassium (3.5-5.1) mmol/L Chloride (98-107) mmol/L Carbon Dioxide (22-30) mmol/L Anion Gap mmol/L BUN (7-17) mg/dL Creatinine (0.52-1.04) mg/dL Est GFR (CKD-EPI)AfAm (>60 ml/min/1.73 sqM) Est GFR (CKD-EPI)NonAf (>60 ml/min/1.73 sqM) Glucose (74-99) mg/dL Plasma Lactic Acid Rock (0.7-2.0) mmol/L Calcium (8.4-10.2) mg/dL Magnesium (1.6-2.3) mg/dL Total Bilirubin (0.2-1.3) mg/dL AST (14-36) U/L ALT (4-34) U/L Alkaline Phosphatase (38-126) U/L Troponin I (0.000-0.034) ng/mL NT-Pro-B Natriuret Pep pg/mL Total Protein (6.3-8.2) g/dL Albumin (3.5-5.0) g/dL Critical Care Time Critical Care Time: Yes Total Critical Care Time: 35 Disposition Clinical Impression: Acute pulmonary edema Disposition: ADMITTED IP TO THIS HOSP Referrals: Rhys Holley MD [Primary Care Provider] - 1-2 days Time of Disposition: 14:13
[2020-12-08 12:58] LABS: VBG PH 7.34 (7.31-7.41)
[2020-12-08 13:09] LABS: ALT 6 U/L (4-34); AST 15 U/L (14-36); African American GFR (CKD) >90 (>60 ml/min/1.73 sqM); Albumin 3.5 g/dL (3.5-5.0); Alkaline Phosphatase 73 U/L (38-126); Anion Gap 7 mmol/L; Blood Urea Nitrogen 18 mg/dL (7-17); Calcium 9.8 mg/dL (8.4-10.2); Carbon Dioxide 26 mmol/L (22-30); Chloride 104 mmol/L (98-107); Glucose 107 mg/dL (74-99); Magnesium 1.5 mg/dL (1.6-2.3); Non-African American GFR(CKD) >90 (>60 ml/min/1.73 sqM); Potassium 5.1 mmol/L (3.5-5.1); Sodium 137 mmol/L (137-145); Total Bilirubin 0.5 mg/dL (0.2-1.3); Total Protein 6.4 g/dL (6.3-8.2)
[2020-12-08 13:12] LABS: D-Dimer 0.43 mg/L FEU (<0.60); INR 1.1 (<1.2); Partial Thromboplastin Time 27.2 sec (22.0-30.0); Prothrombin Time 11.6 sec (9.0-12.0)
[2020-12-08 13:15] LABS: Basophils % (A) 0 %; Eosinophils # (A) 0.1 k/uL (0-0.7); Eosinophils % (A) 1 %; HCT 28.7 % (34.0-46.0); HGB 8.3 gm/dL (11.4-16.0); Hypochromasia Marked; Lymphocytes # (A) 1.3 k/uL (1.0-4.8); Lymphocytes % (A) 22 %; MCHC 28.8 g/dL (31.0-37.0); MCV 76.5 fL (80.0-100.0); Mean Platelet Volume 7.5; Microcytosis Slight; Monocytes # (A) 0.3 k/uL (0-1.0); Monocytes % (A) 5 %; Neutrophils # (A) 4.4 k/uL (1.3-7.7); Neutrophils % (A) 72 %; Platelet Count 308 k/uL (150-450); Poikilocytosis Slight; RBC 3.75 m/uL (3.80-5.40); RDW 15.5 % (11.5-15.5); WBC 6.1 k/uL (3.8-10.6)
--- NOTE | 2020-12-08 13:30 | XR ---
EXAMINATION TYPE: XR chest 2V DATE OF EXAM: 12/08/2020 COMPARISON: Chest x-ray 03/22/2020 HISTORY: Difficult breathing TECHNIQUE: Frontal and lateral views of the chest are obtained. FINDINGS: Bibasilar increased attenuation obscures the hemidiaphragms. Central vascularity and inter stitium are increased. No pneumothorax. Patient is rotated. Heart is likely enlarged. IMPRESSION: Correlate for congestive heart failure, pneumonia not excluded. There may be basilar eff usion.
[2020-12-08] MEDS ORDERED: FUROSEMIDE 10 MG/ML 2 ML VIAL IV STA (13:51)
[2020-12-08] MEDS ORDERED: NITROGLYCERIN OINT 1 INCH/GM PACKET TOPICAL STA (13:52)
[2020-12-08] MEDS ORDERED: ASPIRIN 325 MG TAB PO STA (14:14)
[2020-12-08 17:00] LABS: Glucose,Whole Blood 114 mg/dL (75-99)
[2020-12-08] MEDS: carvediloL 6.25 MG TAB PO SCH (17:11)
[2020-12-08] MEDS: hydrALAZINE HCL 50 MG TAB PO SCH ×2 (17:11→20:41)
[2020-12-08] MEDS: NITROGLYCERIN OINT 1 INCH/GM PACKET TOPICAL SCH ×2 (17:11→20:40)
[2020-12-08] MEDS ORDERED: Magnesium Replacement Protocol 1 EACH MISC MISCELLANE PRN (17:25)
[2020-12-08] MEDS: MAGNESIUM SULFATE-D5W PMX 1 GM in DEXTROSE/WATER 1 100ML.BAG IVPB SCH ×2 (18:18→20:45)
[2020-12-08 20:39] LABS: Glucose,Whole Blood 122 mg/dL (75-99)
[2020-12-08] MEDS: FUROSEMIDE 10 MG/ML 2 ML VIAL IV SCH (20:40)
[2020-12-08] MEDS: traZODone HCL 50 MG TAB PO SCH (20:40)
[2020-12-08] MEDS: ATORVASTATIN 80 MG TAB PO SCH (20:40)
[2020-12-08] MEDS: metFORMIN 500 MG TAB PO SCH (20:40)
[2020-12-08] MEDS: levETIRAcetam 500 MG TAB PO SCH (20:40)
[2020-12-08] MEDS: APIXABAN 5 MG TAB PO SCH (20:41)
[2020-12-09 00:54] LABS: Amorphous Sediment,Urine Rare /hpf; Appearance,Urine Clear (Clear); Bacteria,Urine Many /hpf; Bilirubin,Urine Negative (Negative); Blood,Urine Negative (Negative); Color,Urine Light Yellow; Glucose,Urine (UA) Negative (Negative); Ketones,Urine Negative (Negative); Leukocyte Esterase,Urine Large (Negative); Mucus,Urine Rare /hpf; Nitrite,Urine Negative (Negative); Protein,Urine Negative (Negative); RBC,Urine 9 /hpf (0-5); Specific Gravity,Urine 1.008 (1.001-1.035); Urobilinogen,Urine <2.0 mg/dL (<2.0); WBC,Urine 75 /hpf (0-5)
[2020-12-09 06:10] LABS: Glucose,Whole Blood 94 mg/dL (75-99)
[2020-12-09] MEDS: FUROSEMIDE 10 MG/ML 2 ML VIAL IV SCH ×3 (06:41→20:07)
[2020-12-09] MEDS: carvediloL 6.25 MG TAB PO SCH ×2 (06:41→17:11)
[2020-12-09 07:50] LABS: Basophils % (A) 1 %; Eosinophils # (A) 0.1 k/uL (0-0.7); Eosinophils % (A) 1 %; HCT 27.9 % (34.0-46.0); HGB 8.1 gm/dL (11.4-16.0); Hypochromasia Marked; Lymphocytes # (A) 1.2 k/uL (1.0-4.8); Lymphocytes % (A) 23 %; MCH 22.9 pg (25.0-35.0); MCHC 29.1 g/dL (31.0-37.0); MCV 78.5 fL (80.0-100.0); Mean Platelet Volume 6.7; Monocytes # (A) 0.2 k/uL (0-1.0); Monocytes % (A) 4 %; Neutrophils # (A) 3.8 k/uL (1.3-7.7); Neutrophils % (A) 70 %; Platelet Count 246 k/uL (150-450); RBC 3.56 m/uL (3.80-5.40); RDW 15.7 % (11.5-15.5); WBC 5.4 k/uL (3.8-10.6)
--- NOTE | 2020-12-09 08:18 | XR ---
EXAMINATION TYPE: XR chest 2V DATE OF EXAM: 12/09/2020 COMPARISON: Chest x-ray 12/08/2020 HISTORY: Shortness of breath TECHNIQUE: Frontal and lateral views of the chest are obtained. FINDINGS: Patient is rotated. Pleural parenchymal changes are similar. There is no evident pneumotho rax. Difficult to exclude effusion. There are overlying artifacts. IMPRESSION: Correlate for congestive heart failure, pneumonia not excluded. Rotated exam.
--- NOTE | 2020-12-09 08:26 | P.HPIM ---
History of Present Illness H&P Date: 12/09/20 Chief Complaint: Shortness breath This pleasant 65-year-old female is known to the practice she is unable to state the reason why she came to the hospital she is alert and oriented 1 as she believes that she is at someone's home history reviewed emergency department note stating that she had had respiratory distress earlier in the family states that her pulse ox was in the 70s. She has history of congestive heart failure, diabetes, atrial fibrillation, and CVA with left-sided paralysis. She is resting comfortably in bed alert and oriented only to self, she denies any shortness of breath at this time she denies chest pains, palpitations, abdominal pain, states she slept very well last night. She was admitted to the hospital with a diagnosis acute pulmonary edema ER EKG shows sinus rhythm, and cardiology consultation has been initiated. Review of Systems Constitutional: Reports as per HPI Ears, nose, mouth and throat: Reports as per HPI Respiratory: Reports as per HPI Gastrointestinal: Reports as per HPI Genitourinary: Reports as per HPI Musculoskeletal: Reports as per HPI Neurological: Reports as per HPI, Reports confusion Psychiatric: Reports confusion Past Medical History Past Medical History: Atrial Fibrillation, CVA/TIA, Diabetes Mellitus, Hypertension, Pneumonia, Seizure Disorder, Vascular Disorder Additional Past Medical History / Comment(s): Paroxysmal Afib, CVA x3 with L sided paralysis, TIA, NIDDM type II, vascular dementia, sacral ulcer-healing but just reopened slightly, past L thigh ulcer, UTIs, UTI with sepsis, incontinence at times, seizure d/t reaction to antibiotic in 2020 per gian, hyponatremia, hypomagnesemia, possible CHF-gian states they were told yes/no about chf in past, anemia. History of Any Multi-Drug Resistant Organisms: ESBL, MRSA Date of last positivie culture/infection: 04/08/20 MRSA 02/28/20 ESBL MDRO Source:: MRSA BUTTOCK/ ESBL URINE Past Surgical History: Tubal Ligation Additional Past Surgical History / Comment(s): Arch study, L caratid endartectomy, loop recorder Past Anesthesia/Blood Transfusion Reactions: No Reported Reaction Type of Cardiac Device: Loop Smoking Status: Former smoker - Past Family History Brother(s) Family Medical History: No Reported History Sister(s) Family Medical History: Diabetes Mellitus Additional Family Medical History / Comment(s): RENAL FAILURE, ABCESSES Mother Family Medical History: Vascular Disorder Additional Family Medical History / Comment(s): Brain Aneurism. Father Family Medical History: Diabetes Mellitus Medications and Allergies Home Medications Medication Instructions Recorded Confirmed Type Atorvastatin [Lipitor] 80 mg PO HS 03/22/19 12/08/20 History Losartan Potassium 100 mg PO DAILY 03/22/19 12/08/20 History Citalopram Hydrobromide [CeleXA] 40 mg PO DAILY 07/06/19 12/08/20 History carvediloL [Coreg] 6.25 mg PO BID-W/MEALS 30 Days #60 01/20/20 12/08/20 Rx tab hydrALAZINE HCL [Apresoline] 50 mg PO TID 03/05/20 12/08/20 History Apixaban [Eliquis] 5 mg PO BID tab 03/31/20 12/08/20 Rx amLODIPine [Norvasc] 10 mg PO DAILY 12/08/20 12/08/20 History levETIRAcetam [Keppra] 1,000 mg PO Q12HR 12/08/20 12/08/20 History metFORMIN HCL [Glucophage] 500 mg PO BID 12/08/20 12/08/20 History traZODone HCL 50 mg PO HS 12/08/20 12/08/20 History Allergies Allergy/AdvReac Type Severity Reaction Status Date / Time lorazepam [From Ativan] Allergy Unknown Verified 12/08/20 13:50 Physical Exam Vitals: Vital Signs Temp Pulse Pulse Resp BP BP Pulse Ox 12/09/20 03:32 97.8 F 62 18 124/67 91 L 12/09/20 02:00 62 18 12/08/20 23:17 97.6 F 62 18 147/67 93 L 12/08/20 20:00 97.9 F 62 18 146/80 93 L 12/08/20 16:30 98.1 F 63 18 183/70 93 L 12/08/20 15:28 64 16 146/78 94 L 12/08/20 13:44 64 16 142/59 94 L 12/08/20 12:44 18 94 L 12/08/20 12:18 18 97 12/08/20 12:15 22 82 L 03/02/21 11:59 98.4 F 61 22 155/66 85 L Intake and Output 12/08/20 12/09/20 12/09/20 22:59 06:59 14:59 Output Total 1700 Balance -1700 Output: Urine 1700 Other: Voiding Method External Catheter External Catheter # Voids 1 Weight 113.398 kg 111 kg - Constitutional General appearance: cooperative, morbidly obese - EENT ENT: hearing grossly normal Ears: bilateral: normal - Respiratory Respiratory: bilateral: CTA - Cardiovascular Rhythm: regular Heart sounds: normal: S1, S2 - Gastrointestinal General gastrointestinal: soft - Integumentary Integumentary: normal - Musculoskeletal Musculoskeletal: left sided weakness - Psychiatric Confusion oriented only to self Results CBC & Chem 7: 12/09/20 07:28 12/08/20 12:47 Labs: Abnormal Lab Results - Last 24 Hours (Table) 12/08/20 12/08/20 12/08/20 Range/Units 12:47 12:47 16:50 RBC 3.75 L (3.80-5.40) m/uL Hgb 8.3 L (11.4-16.0) gm/dL Hct 28.7 L (34.0-46.0) % MCV 76.5 L (80.0-100.0) fL MCH 22.0 L (25.0-35.0) pg MCHC 28.8 L (31.0-37.0) g/dL RDW (11.5-15.5) % BUN 18 H (7-17) mg/dL Glucose 107 H (74-99) mg/dL POC Glucose (mg/dL) 114 H (75-99) mg/dL Magnesium 1.5 L (1.6-2.3) mg/dL Ur Leukocyte Esterase (Negative) Urine RBC (0-5) /hpf Urine WBC (0-5) /hpf Amorphous Sediment (None) /hpf Urine Bacteria (None) /hpf Urine Mucus (None) /hpf 12/08/20 12/09/20 12/09/20 Range/Units 20:33 00:30 07:28 RBC 3.56 L (3.80-5.40) m/uL Hgb 8.1 L (11.4-16.0) gm/dL Hct 27.9 L (34.0-46.0) % MCV 78.5 L (80.0-100.0) fL MCH 22.9 L (25.0-35.0) pg MCHC 29.1 L (31.0-37.0) g/dL RDW 15.7 H (11.5-15.5) % BUN (7-17) mg/dL Glucose (74-99) mg/dL POC Glucose (mg/dL) 122 H (75-99) mg/dL Magnesium (1.6-2.3) mg/dL Ur Leukocyte Esterase Large H (Negative) Urine RBC 9 H (0-5) /hpf Urine WBC 75 H (0-5) /hpf Amorphous Sediment Rare H (None) /hpf Urine Bacteria Many H (None) /hpf Urine Mucus Rare H (None) /hpf Chest x-ray: report reviewed Thrombosis Risk Factor Assmnt - Choose All That Apply Any of the Below Risk Factors Present?: Yes Each Factor Represents 1 point: Heart failure (<1month), Obesity (BMI >25) Other Risk Factors: Yes Each Risk Factor Represents 2 Points: Age 61-74 years Other congenital or acquired thrombophilia - If yes, enter type in comment: No Thrombosis Risk Factor Assessment Total Risk Factor Score: 4 Thrombosis Risk Factor Assessment Level: Moderate Risk Assessment and Plan Assessment: Shortness breath Acute pulmonary edema History of diabetes mellitus type II History of paroxysmal atrial fibrillation on anticoagulation History of CVA with left-sided flaccidity Hypertension Plan: Continue medications as prescribed Continue cardiac monitoring Continue cardiology consultation for recommendations and plan Time with Patient: Greater than 30
[2020-12-09 08:38] LABS: ALT <6 U/L (4-34); AST 14 U/L (14-36); African American GFR (CKD) >90 (>60 ml/min/1.73 sqM); Alkaline Phosphatase 62 U/L (38-126); Anion Gap 7 mmol/L; Blood Urea Nitrogen 18 mg/dL (7-17); Calcium 9.8 mg/dL (8.4-10.2); Carbon Dioxide 26 mmol/L (22-30); Chloride 103 mmol/L (98-107); Glucose 94 mg/dL (74-99); Magnesium 1.6 mg/dL (1.6-2.3); Non-African American GFR(CKD) >90 (>60 ml/min/1.73 sqM); Potassium 4.7 mmol/L (3.5-5.1); Sodium 136 mmol/L (137-145); Total Bilirubin 0.6 mg/dL (0.2-1.3); Total Protein 6.2 g/dL (6.3-8.2)
[2020-12-09] MEDS: NITROGLYCERIN OINT 1 INCH/GM PACKET TOPICAL SCH ×4 (08:51→21:44)
[2020-12-09] MEDS: hydrALAZINE HCL 50 MG TAB PO SCH ×3 (08:51→21:44)
[2020-12-09] MEDS: CITALOPRAM HYDROBROMIDE 20 MG TAB PO SCH (08:51)
[2020-12-09] MEDS: ASPIRIN 325 MG TAB PO SCH (08:51)
[2020-12-09] MEDS: metFORMIN 500 MG TAB PO SCH ×2 (08:51→20:06)
[2020-12-09] MEDS: amLODIPine 10 MG TAB PO SCH (08:51)
[2020-12-09] MEDS: LOSARTAN 50 MG TAB PO SCH (08:51)
[2020-12-09] MEDS: APIXABAN 5 MG TAB PO SCH ×2 (08:51→20:06)
[2020-12-09] MEDS: levETIRAcetam 500 MG TAB PO SCH ×2 (08:52→20:06)
[2020-12-09 08:59] LABS: Albumin 3.4 g/dL (3.5-5.0)
[2020-12-09 11:46] LABS: Glucose,Whole Blood 95 mg/dL (75-99)
--- NOTE | 2020-12-09 11:52 | ECHOF ---
Referral Reason:shortness of breath, atrial fibrillation MEASUREMENTS -------- HEIGHT: 157.5 cm WEIGHT: 110.7 kg BP: 161/78 RVIDd: 3.3 cm (< 3.3) IVSd: 1.5 cm (0.6 - 1.1) LVIDd: 4.4 cm (3.9 - 5.3) LVPWd: 1.3 cm (0.6 - 1.1) IVSs: 1.5 cm LVIDs: 2.6 cm LVPWs: 1.5 cm LAESV Index (A-L): 40.86 ml/m Ao Diam: 2.2 cm (2.0 - 3.7) AV Cusp: 1.6 cm (1.5 - 2.6) LA Diam: 4.6 cm (2.7 - 3.8) MV EXCURSION: 23.351 mm (> 18.000) MV EF SLOPE: 141 mm/s (70 - 150) EPSS: 0.4 cm MV E Kanu: 1.49 m/s MV DecT: 255 ms MV A Kanu: 1.02 m/s MV E/A Ratio: 1.46 AV maxP.87 mmHg AV meanP.98 mmHg AR PHT: 924 ms RAP: 5.00 mmHg RVSP: 36.95 mmHg FINDINGS -------- Sinus rhythm. This was a technically adequate study. The left ventricular size is normal. There is moderate concentric left ventricular hypertrophy. O verall left ventricular systolic function is normal with, an EF between 55 - 60 %. Left ventricular fillimg pressure cannot be estimated due to severe mitral annular calcification. The right ventricle is mildly enlarged. LA is moderately dilated 34-39 ml/m2 The right atrial size is normal. Interatrial and interventricular septum intact. There is mild aortic regurgitation. There is mild aortic stenosis present. Peak/mean gradient acr oss the Aortic Valve is 19.87mmHg / 12.98mmHg. Severe mitral annular calcification present. Mild mitral regurgitation is present , with a MVA of 2 .9cm (by PHT) Mild tricuspid regurgitation present. There is mild pulmonary hypertension. The right ventricular systolic pressure, as measured by Doppler, is 36.95mmHg. Trace/mild (physiologic) pulmonic regurgitation. The aortic root size is normal. IVC Not well visulized. There is a small, generalized pericardial effusion present. CONCLUSIONS -------- 1. The left ventricular size is normal. 2. There is moderate concentric left ventricular hypertrophy. 3. Overall left ventricular systolic function is normal with, an EF between 55 - 60 %. 4. Left ventricular fillimg pressure cannot be estimated due to severe mitral annular calcification. 5. The right ventricle is mildly enlarged. 6. LA is moderately dilated 34-39 ml/m2 7. There is mild aortic regurgitation. 8. There is mild aortic stenosis present. 9. Peak/mean gradient across the Aortic Valve is 19.87mmHg / 12.98mmHg. 10. Severe mitral annular calcification present. 11. Mild mitral regurgitation is present. 12. , with a MVA of 2.9cm (by PHT) 13. Mild tricuspid regurgitation present. 14. There is mild pulmonary hypertension. 15. The right ventricular systolic pressure, as measured by Doppler, is 36.95mmHg. 16. Trace/mild (physiologic) pulmonic regurgitation. 17. There is a small, generalized pericardial effusion present. MATERIAL HANDLER LOADER: Idania Finley RDCS
--- NOTE | 2020-12-09 12:04 | P.CRDCN ---
History of Present Illness History of present illness: HISTORY OF PRESENTING ILLNESS This is a pleasant 65-year-old female past medical history significant for paroxysmal atrial fibrillation on eliquis, hypertension, hyperlipidemia, type 2 diabetes, peripheral vascular disease status post carotid endartectomy, CVA with left sided paralysis, Loop recorder placed 05/2016, Vascular dementia, TIA. Patient is a poor historian. She follows in the office with Dr. Alicea. We have been asked to see in consultation for shortness of breath, possible congestive heart failure. Patient is seen and examined patient resting comfortably in bed, lying flat in bed, no apparent distress. Patient is a poor historian. She stated that she lives with her "mom, dad, and her kids" and she woke up yesterday morning, was "walking around" and felt short of breath. Patient is bed bound. She states her breathing is "much better than yesterday." Patient denies symptoms of chest pain, palpitations, lower extremity edema. orthopnea. Patient sleeps lying flat at home. Patient does have wheelchair at bedside. Of note, patient's 2 weeks ago, and patient is not aware of this. Most recent weight 113kg on admission, 111kg taken on the cardiac floor. On arrival to the emergency department patient's pulse ox was 80-85 on room air and was placed on 4 L nasal cannula, with improvement in 99% Patient has been weaned to 2L nasal cannula with SpO2 93-94%. Laboratory data reviewed, Hgb stable at 8.1, WBC 5.4, Platelets 246, D-dimer 0.43, BNP- 748, troponin negative x 1. Sodium 136, K 4.7, sCr 0.65, glucose 94, Magnesium 1.6. Vital signs B{ 161/78 HR 60s, RR 20, afebrile, 95% on 2L nasal cannula. DIAGNOSTICS Most recent Echo 01/2020 TTE, EF 55-60%, mild aortic valve sclerosis, mild aortic regurgitation, mild mitral regurgitation, mild tricuspid regurgitation EKG reveals normal sinus rhythm, HR 61, non-specific ST wave changes in inferior leads. Telemetry tracings indicate normal sinus rhythm HR 60s, HR low 59. Chest xray- patient is rotated, not a good view. - read "correlate for congestive heart failure, pneumonia not excluded" Current home cardiac medications include hydralazine 50mg TID, carvedilol 6.25mg BID, amlodipine 10mg daily, losartan 100mg daily, eliquis 5mg BID, atorvastatin 80mg nightly. REVIEW OF SYSTEMS At the time of my exam: CONSTITUTIONAL: Denies fever or chills. CARDIOVASCULAR: +shortness of breath. Denies chest pain, orthopnea, PND or palpitations. RESPIRATORY: Denies cough. GASTROINTESTINAL: Denies abdominal pain, diarrhea, constipation, nausea or vomiting. MUSCULOSKELETAL: Denies myalgias. NEUROLOGIC: Denies numbness, tingling, headacbe or weakness. ENDOCRINE: Denies fatigue, weight change, polydipsia or polyurina. GENITOURINARY: Denies burning, hematuria or urgency with micturation. HEMATOLOGIC: Denies history of anemia or bleeding. PHYSICAL EXAMINATION CONSTITUTIONAL: No apparent distress. HEENT: Head is normocephalic. Pupils are equal, round. Sclerae anicteric. Mucous membranes of the mouth are moist. No JVD. No carotid bruit. CHEST EXAMINATION: Diminished bilateral bases. . No chest wall tenderness is noted on palpation or with deep breathing. HEART EXAMINATION: Regular rate and rhythm. S1, S2 heard. No murmurs, gallops or rub. ABDOMEN: Soft, nontender. Positive bowel sounds. EXTREMITIES: 2+ peripheral pulses, non-pitting bilateral lower extremity edema (Leg appears > Right leg) and no calf tenderness. NEUROLOGIC EXAMINATION: Left sided weakness. Patient is awake, alert and oriented x 2. ASSESSMENT - Paroxysmal atrial fibrillation on eliquis -History of Hypertension -History of Hyperlipidemia -Type 2 diabetes -Peripheral vascular disease status post carotid endartectomy -CVA x 3 with left sided paralysis -Loop recorder placed 05/2016. -Vascular dementia -History of TIA PLAN -Ordered TTE -Patient on ARB and beta elizabeth- will continue home medication Losartan 100mg daily, carvedilol 6.25mg BID. -Patient continues to be shortness of breath, with improvement and lower extremity edema. Will continue IV diuresis today- Lasix 20mg IV Q8hr -Heart Healthy Diet, I/Os, Daily Weights Nurse Practitioner note has been reviewed, I agree with a documented findings and plan of care. Patient was seen and examined. Past Medical History Past Medical History: Atrial Fibrillation, CVA/TIA, Diabetes Mellitus, Hypertension, Pneumonia, Seizure Disorder, Vascular Disorder Additional Past Medical History / Comment(s): Paroxysmal Afib, CVA x3 with L sided paralysis, TIA, NIDDM type II, vascular dementia, sacral ulcer-healing but just reopened slightly, past L thigh ulcer, UTIs, UTI with sepsis, incontinence at times, seizure d/t reaction to antibiotic in 2019 per gian, hyponatremia, hypomagnesemia, possible CHF-gian states they were told yes/no about chf in past, anemia. History of Any Multi-Drug Resistant Organisms: ESBL, MRSA Date of last positivie culture/infection: 04/08/20 MRSA 02/28/20 ESBL MDRO Source:: MRSA BUTTOCK/ ESBL URINE Past Surgical History: Tubal Ligation Additional Past Surgical History / Comment(s): Arch study, L caratid endartectomy, loop recorder Past Anesthesia/Blood Transfusion Reactions: No Reported Reaction Type of Cardiac Device: Loop Smoking Status: Former smoker - Past Family History Brother(s) Family Medical History: No Reported History Sister(s) Family Medical History: Diabetes Mellitus Additional Family Medical History / Comment(s): RENAL FAILURE, ABCESSES Mother Family Medical History: Vascular Disorder Additional Family Medical History / Comment(s): Brain Aneurism. Father Family Medical History: Diabetes Mellitus Medications and Allergies Home Medications Medication Instructions Recorded Confirmed Type Atorvastatin [Lipitor] 80 mg PO HS 03/22/19 12/08/20 History Losartan Potassium 100 mg PO DAILY 03/22/19 12/08/20 History Citalopram Hydrobromide [CeleXA] 40 mg PO DAILY 07/06/19 12/08/20 History carvediloL [Coreg] 6.25 mg PO BID-W/MEALS 30 Days #60 01/20/20 12/08/20 Rx tab hydrALAZINE HCL [Apresoline] 50 mg PO TID 03/05/20 12/08/20 History Apixaban [Eliquis] 5 mg PO BID tab 03/31/20 12/08/20 Rx amLODIPine [Norvasc] 10 mg PO DAILY 12/08/20 12/08/20 History levETIRAcetam [Keppra] 1,000 mg PO Q12HR 12/08/20 12/08/20 History metFORMIN HCL [Glucophage] 500 mg PO BID 12/08/20 12/08/20 History traZODone HCL 50 mg PO HS 12/08/20 12/08/20 History Allergies Allergy/AdvReac Type Severity Reaction Status Date / Time lorazepam [From Ativan] Allergy Unknown Verified 12/08/20 13:50 Physical Exam Vitals: Vital Signs Temp Pulse Pulse Resp BP BP Pulse Ox 12/09/20 08:48 98.3 F 65 20 161/78 95 12/09/20 08:00 65 20 12/09/20 03:32 97.8 F 62 18 124/67 91 L 12/09/20 02:00 62 18 12/08/20 23:17 97.6 F 62 18 147/67 93 L 12/08/20 20:00 97.9 F 62 18 146/80 93 L 12/08/20 16:30 98.1 F 63 18 183/70 93 L 12/08/20 15:28 64 16 146/78 94 L 12/08/20 13:44 64 16 142/59 94 L 12/08/20 12:44 18 94 L 12/08/20 12:18 18 97 12/08/20 12:15 22 82 L 12/08/20 11:59 98.4 F 61 22 155/66 85 L Intake and Output 12/08/20 12/09/20 12/09/20 22:59 06:59 14:59 Intake Total 0 Output Total 1700 Balance -1700 0 Intake: Oral 0 Output: Urine 1700 Other: Voiding Method External Catheter External Catheter External Catheter # Voids 1 Weight 113.398 kg 111 kg Results 12/09/20 07:28 12/09/20 07:28 Cardiac Enzymes 12/08/20 12/08/20 12/09/20 Range/Units 12:47 12:47 07:28 AST 15 14 (14-36) U/L Troponin I <0.012 (0.000-0.034) ng/mL Coagulation 12/08/20 Range/Units 12:47 PT 11.6 (9.0-12.0) sec APTT 27.2 (22.0-30.0) sec CBC 12/08/20 12/09/20 Range/Units 12:47 07:28 WBC 6.1 5.4 (3.8-10.6) k/uL RBC 3.75 L 3.56 L (3.80-5.40) m/uL Hgb 8.3 L 8.1 L (11.4-16.0) gm/dL Hct 28.7 L 27.9 L (34.0-46.0) % Plt Count 308 246 (150-450) k/uL Comprehensive Metabolic Panel 12/08/20 12/09/20 Range/Units 12:47 07:28 Sodium 137 136 L (137-145) mmol/L Potassium 5.1 4.7 (3.5-5.1) mmol/L Chloride 104 103 (98-107) mmol/L Carbon Dioxide 26 26 (22-30) mmol/L BUN 18 H 18 H (7-17) mg/dL Creatinine 0.64 0.65 (0.52-1.04) mg/dL Glucose 107 H 94 (74-99) mg/dL Calcium 9.8 9.8 (8.4-10.2) mg/dL AST 15 14 (14-36) U/L ALT 6 <6 (4-34) U/L Alkaline Phosphatase 73 62 (38-126) U/L Total Protein 6.4 6.2 L (6.3-8.2) g/dL Albumin 3.5 3.4 L (3.5-5.0) g/dL Current Medications Generic Name Dose Route Start Last Admin Trade Name Freq PRN Reason Stop Dose Admin Acetaminophen 500 mg 12/08/20 17:27 Acetaminophen Tab 500 Mg Tab PO Q6HR PRN Fever and/ or Mild Pain Amlodipine Besylate 10 mg 12/09/20 09:00 12/09/20 08:51 Amlodipine 10 Mg Tab PO 10 mg DAILY BRODY Administration Apixaban 5 mg 12/08/20 21:00 12/09/20 08:51 Apixaban 5 Mg Tab PO 5 mg BID BRODY Administration Aspirin 325 mg 12/09/20 09:00 12/09/20 08:51 Aspirin 325 Mg Tab PO 325 mg DAILY BRODY Administration Atorvastatin Calcium 80 mg 12/08/20 21:00 12/08/20 20:40 Atorvastatin 80 Mg Tab PO 80 mg HS BRODY Administration Carvedilol 6.25 mg 12/08/20 17:30 12/09/20 06:41 Carvedilol 6.25 Mg Tab PO 6.25 mg BID-W/MEALS BRODY Administration Citalopram Hydrobromide 40 mg 12/09/20 09:00 12/09/20 08:51 Citalopram Hydrobromide 20 Mg Tab PO 40 mg DAILY BRODY Administration Furosemide 20 mg 12/08/20 22:00 12/09/20 06:41 Furosemide 10 Mg/Ml 2 Ml Vial IV 20 mg Q8H BRODY Administration Hydralazine HCl 50 mg 12/08/20 16:00 12/09/20 08:51 Hydralazine Hcl 50 Mg Tab PO 50 mg TID BRODY Administration Levetiracetam 1,000 mg 12/08/20 21:00 12/09/20 08:52 Levetiracetam 500 Mg Tab PO 1,000 mg Q12HR BRODY Administration Losartan Potassium 100 mg 12/09/20 09:00 12/09/20 08:51 Losartan 50 Mg Tab PO 100 mg DAILY BRODY Administration Metformin HCl 500 mg 12/08/20 21:00 12/09/20 08:51 Metformin 500 Mg Tab PO 500 mg BID BRODY Administration Miscellaneous Information 1 each 12/08/20 17:25 Magnesium Replacement Protocol 1 Each Misc MISCELLANE DAILY PRN Per Protocol Protocol Nitroglycerin 1 inch 12/08/20 18:00 12/09/20 08:51 Nitroglycerin Oint 1 Inch/Gm Packet TOPICAL 1 inch QID BRODY Administration Trazodone HCl 50 mg 12/08/20 21:00 12/08/20 20:40 Trazodone Hcl 50 Mg Tab PO 50 mg HS BRODY Administration Intake and Output 12/08/20 12/09/20 12/09/20 22:59 06:59 14:59 Intake Total 0 Output Total 1700 Balance -1700 0 Intake: Oral 0 Output: Urine 1700 Other: Voiding Method External Catheter External Catheter External Catheter # Voids 1 Weight 113.398 kg 111 kg 12/09/20 07:28 12/09/20 07:28
[2020-12-09 14:11] VITALS: BMI 44.7
[2020-12-09 16:52] LABS: Glucose,Whole Blood 129 mg/dL (75-99)
[2020-12-09 19:41] LABS: Glucose,Whole Blood 115 mg/dL (75-99)
[2020-12-09] MEDS: traZODone HCL 50 MG TAB PO SCH (20:06)
[2020-12-09] MEDS: ATORVASTATIN 80 MG TAB PO SCH (20:06)
[2020-12-10 00:23] LABS: % Iron Saturation 5.63 (12.00-45.00); Ferritin 10.9 ng/mL (10.0-291.0); Iron 22 ug/dL (50-170); Total Iron Binding Capacity 391 ug/dL (228-460)
[2020-12-10 06:08] LABS: Glucose,Whole Blood 107 mg/dL (75-99)
[2020-12-10] MEDS: FUROSEMIDE 10 MG/ML 2 ML VIAL IV SCH ×2 (06:09→15:06)
[2020-12-10] MEDS: carvediloL 6.25 MG TAB PO SCH ×2 (06:09→17:28)
[2020-12-10 06:11] LABS: Basophils % (A) 0 %; Eosinophils # (A) 0.1 k/uL (0-0.7); Eosinophils % (A) 1 %; HGB 8.3 gm/dL (11.4-16.0); Hypochromasia Marked; Lymphocytes # (A) 1.4 k/uL (1.0-4.8); Lymphocytes % (A) 20 %; MCH 21.9 pg (25.0-35.0); MCHC 28.6 g/dL (31.0-37.0); MCV 76.3 fL (80.0-100.0); Mean Platelet Volume 7.1; Microcytosis Slight; Monocytes # (A) 0.2 k/uL (0-1.0); Monocytes % (A) 3 %; Neutrophils # (A) 5.4 k/uL (1.3-7.7); Neutrophils % (A) 75 %; Platelet Count 260 k/uL (150-450); RDW 15.8 % (11.5-15.5); WBC 7.2 k/uL (3.8-10.6)
[2020-12-10 06:33] LABS: Albumin 3.4 g/dL (3.5-5.0); Chloride 99 mmol/L (98-107); Glucose 106 mg/dL (74-99); Potassium 4.5 mmol/L (3.5-5.1); Total Protein 6.2 g/dL (6.3-8.2)
[2020-12-10 06:35] LABS: ALT <6 U/L (4-34); AST 14 U/L (14-36); African American GFR (CKD) >90 (>60 ml/min/1.73 sqM); Alkaline Phosphatase 67 U/L (38-126); Anion Gap 8 mmol/L; Blood Urea Nitrogen 19 mg/dL (7-17); Calcium 9.7 mg/dL (8.4-10.2); Carbon Dioxide 26 mmol/L (22-30); Non-African American GFR(CKD) 86 (>60 ml/min/1.73 sqM); Sodium 133 mmol/L (137-145); Total Bilirubin 0.6 mg/dL (0.2-1.3)
[2020-12-10] MEDS: APIXABAN 5 MG TAB PO SCH ×2 (08:19→20:54)
[2020-12-10] MEDS: levETIRAcetam 500 MG TAB PO SCH ×2 (08:19→20:54)
[2020-12-10] MEDS: hydrALAZINE HCL 50 MG TAB PO SCH ×2 (08:19→17:28)
[2020-12-10] MEDS: amLODIPine 10 MG TAB PO SCH (08:19)
[2020-12-10] MEDS: LOSARTAN 50 MG TAB PO SCH (08:20)
[2020-12-10] MEDS: metFORMIN 500 MG TAB PO SCH ×2 (08:20→20:54)
[2020-12-10] MEDS: ASPIRIN 325 MG TAB PO SCH (08:20)
[2020-12-10] MEDS: CITALOPRAM HYDROBROMIDE 20 MG TAB PO SCH (08:20)
[2020-12-10] MEDS: NITROGLYCERIN OINT 1 INCH/GM PACKET TOPICAL SCH ×3 (08:20→18:51)
--- NOTE | 2020-12-10 08:36 | P.PN ---
Subjective Progress Note Date: 12/10/20 Principal diagnosis: Dyspnea This pleasant 65-year-old female is resting comfortably in bed in no acute distress, she is alert and oriented 1 and continues to have confusion, her oxygen level had desaturations overnight and she was placed on oxygen via nasal cannula she is currently on 3 L/m with induction level in the lower 90s she is not in acute distress at this time. She was reported to have a restless night last night including calling out which she did settle down without any intervention. She does report that she does have a cough Rocephin was initiated for pneumonia still awaiting urinary culture which is in preliminary status as she has recurring urinary tract infections. Echocardiogram reviewed she is then diuresed with Lasix 20 mg IV every 8 hours which she is currently tolerating. Objective - Vital Signs Vital signs: Vital Signs Temp 98.2 F 12/10/20 08:10 Pulse 69 12/10/20 08:10 Resp 16 12/10/20 08:10 BP 162/68 12/10/20 08:10 Pulse Ox 92 L 12/10/20 08:10 Intake & Output 12/09/20 12/10/20 12/10/20 18:59 06:59 18:59 Intake Total 600 Output Total 600 Balance 600 -600 Weight 111 kg 102.5 kg Intake: Oral 600 Output: Urine 600 Other: Voiding Method External Catheter External Catheter - Constitutional General appearance: Present: morbidly obese - EENT Eyes: Present: poor dentition ENT: Present: hearing grossly normal - Neck Neck: Present: normal ROM - Respiratory Respiratory: bilateral: CTA - Cardiovascular Rhythm: regular - Gastrointestinal General gastrointestinal: Present: normal bowel sounds, soft - Neurologic Neurologic: Present: focal deficits - Musculoskeletal Musculoskeletal: Present: left sided weakness - Psychiatric Psychiatric Comment(s): Alert and oriented to self - Labs CBC & Chem 7: 12/10/20 05:38 12/10/20 05:38 Labs: Abnormal Lab Results - Last 24 Hours (Table) 12/09/20 12/09/20 12/09/20 Range/Units 07:28 16:50 19:38 Hgb (11.4-16.0) gm/dL Hct (34.0-46.0) % MCV (80.0-100.0) fL MCH (25.0-35.0) pg MCHC (31.0-37.0) g/dL RDW (11.5-15.5) % Sodium 136 L (137-145) mmol/L BUN 18 H (7-17) mg/dL Glucose (74-99) mg/dL POC Glucose (mg/dL) 129 H 115 H (75-99) mg/dL Iron 22 L (50-170) ug/dL % Saturation 5.63 L (12.00-45.00) Total Protein 6.2 L (6.3-8.2) g/dL Albumin 3.4 L (3.5-5.0) g/dL 12/10/20 12/10/20 12/10/20 Range/Units 05:38 05:38 06:06 Hgb 8.3 L (11.4-16.0) gm/dL Hct 29.0 L (34.0-46.0) % MCV 76.3 L (80.0-100.0) fL MCH 21.9 L (25.0-35.0) pg MCHC 28.6 L (31.0-37.0) g/dL RDW 15.8 H (11.5-15.5) % Sodium 133 L (137-145) mmol/L BUN 19 H (7-17) mg/dL Glucose 106 H (74-99) mg/dL POC Glucose (mg/dL) 107 H (75-99) mg/dL Iron (50-170) ug/dL % Saturation (12.00-45.00) Total Protein 6.2 L (6.3-8.2) g/dL Albumin 3.4 L (3.5-5.0) g/dL Microbiology - Last 24 Hours (Table) 12/09/20 00:30 Urine Culture - Preliminary Urine,Voided - Imaging and Cardiology Chest x-ray: report reviewed Echocardiogram Assessment and Plan Assessment: Shortness breath Acute pulmonary edema History of diabetes mellitus type II History of paroxysmal atrial fibrillation on eliquis History of CVA with left-sided flaccidity Hypertension Vascular dementia Plan: Continue medications as prescribed Continue cardiac monitoring Continue cardiology consultation for recommendations and plan
[2020-12-10 11:43] LABS: Glucose,Whole Blood 105 mg/dL (75-99)
--- NOTE | 2020-12-10 11:58 | XR ---
EXAMINATION TYPE: XR chest 2V DATE OF EXAM: 12/10/2020 COMPARISON: Chest x-ray 12/09/2020 HISTORY: Shortness of breath TECHNIQUE: Frontal and lateral views of the chest are obtained. FINDINGS: There is blunting the posterior costophrenic angles. Bilateral airspace disease persists. Hemidiaphragms are obscured. There is no pneumothorax. Cardiac mediastinal silhouette is stable chase ter for rotation. IMPRESSION: Correlate for congestive heart failure with associated effusions. Pneumonia not excluded .
--- NOTE | 2020-12-10 12:13 | CDI ---
Documentation Clarification Form Date: 12/10/2020 11:42:16 AM From: Kylie Daniels RN CCDS Admit Date: 12/08/2020 02:14:00 PM Patient Name: Joanna Segovia Visit Number: [id number] Discharge Date: ATTENTION: The Clinical Documentation Specialists (CDI) and [facility] Coding Staff appreciate your assistance in clarifying documentation. Please respond to the clarification below the line at the bottom and electronically sign. The CDI & [facility] Coding staff will review the response and follow-up if needed. Please note: Queries are made part of the Legal Health Record. If you have any questions, please contact the author of this message via ITS. Dr. Rhys Holley Respiratory distress was documented in the H&P 12/09. History/Risk Factors: 65-year-old female presents to the ED with respiratory distress, per family pulse ox was in the 70s. Medical History: CHF; HTN and Atrial Fibrillation. Documented in the H&P 12/08. Former smoker per H&P 12/09. Clinical Indicators: Home history reviewed emergency department note stating that she had respiratory distress earlier in the family states that her pulse ox was in the 70s. Documented in the H&P 12/09. Vital signs: 12/08 B/P 155/66; HR 61; Temp 98.4 F Oral; RR 22; SpO2 85% room air. 12/08 23:17 B/P 147/67; HR 62; Temp 97.6 F Oral; RR 18; SpO2 93% 2L nasal cannula 12/09 23:06 B/P 117/62; HR 70; Temp 98.5 F Oral; RR 16; SpO2 91% 3L nasal cannula 12/10 03:06 B/P 142/64; HR 71; Temp 98.0 F Oral; RR 18; SpO2 75% Room Air. 12/10 08:10 B/P 162/68; HR 69; Temp 98.2 F Oral: RR 16; SpO2 92% 4L nasal cannula Respiratory assessment: CTA. Documented in the H&P 12/09. Chest Examination: Diminished bilateral bases. Documented in Cardiology Consult 12/09. CXR 12/08: Bibasilar increased attenuation obscures the hemidiaphragms. Central vascularity and interstitium are increased. Treatment: 3/2 2L nasal cannula; 3/3 3L nasal cannula and 3/4 4L nasal cannula. In your professional opinion, can you please clarify if these findings signify one of the following conditions? Acute Respiratory Failure Other Diagnosis, please specify Unable to determine If known, further specify (if known): With hypercapnia? (pCO2 >50 and pH <7.35) With hypoxia? (pO2 <60 mm Hg or SpO2 <91% on room air) (Last Query Form Revision: June 2019) KRISH
--- NOTE | 2020-12-10 14:33 | P.PN ---
Subjective This is a pleasant 65-year-old female past medical history significant for paroxysmal atrial fibrillation on eliquis, hypertension, hyperlipidemia, type 2 diabetes, peripheral vascular disease status post carotid endartectomy, CVA with left sided paralysis, Loop recorder placed 05/2016, Vascular dementia, TIA. Patient is a poor historian. She follows in the office with Dr. Alicea. We have been asked to see in consultation for shortness of breath, possible congestive heart failure. Patient is a poor historian. On arrival to the emergency department patient's pulse ox was 80-85 on room air and was placed on 4 L nasal cannula Patient is seen and examined patient resting comfortably in bed, lying flat in bed, no apparent distress. Patient denies symptoms of chest pain, palpitations, orthopnea. Patient alert, oriented to person and place. Stated that the year is 1971. Patient's oxygen saturations were stable on 2 L yesterday. Patient with documented oxygen saturation 75% on room air. Patient placed on 4 L nasal can nula to maintain oxygen saturations. Laboratory data reviewed, WBC 7.2, Hgb stable at 8.3. Sodium 133, K 4.5, renal function stable sCr 0.673. Vital signs BP 162/68 HR 60s, RR 18, afebrile, 92-95% on 4L nasal cannula. Telemetry tracings indicate normal sinus rhythm HR 60-70s Chest xray done today- patient appears rotated, appears to have an enlarged cardiac silhouette. I/Os today with 1700mL urine output yesterday, 800mL urine output today. Patient currently being treated with IV azithromycin and IV ceftriaxone. Echo 12/09/20 revealed left ventricular systolic function normal with an EF betwee n 55- 60%. Mild aortic regurigation, mild aortic stenosis present with mean gradient 12.98mmHg. Severe mitral annular calcification present. LA is moderately dilated. Patient is currently maintained on lasix 40mg IV BID, hydralazine 50mg TID, amlodipine 10 mg daily, Eliquis 5 mg twice a day, losartan 100 mg daily, aspirin 325 mg daily, carvedilol 6.25 mg by mouth twice a day, atorvastatin 80 mg nightly PHYSICAL EXAMINATION CONSTITUTIONAL: No apparent distress. HEENT: Head is normocephalic. Pupils are equal, round. Sclerae anicteric. Mucous membranes of the mouth are moist. No JVD. No carotid bruit. CHEST EXAMINATION: Diminished bilateral bases. . No chest wall tenderness is noted on palpation or with deep breathing. HEART EXAMINATION: Regular rate and rhythm. S1, S2 heard. No murmurs, gallops or rub. ABDOMEN: Soft, nontender. Positive bowel sounds. EXTREMITIES: 2+ peripheral pulses, non-pitting bilateral lower extremity edema (Leg appears > Right leg) and no calf tenderness. 2+ pitting edema left hand. NEUROLOGIC EXAMINATION: Left sided weakness. Patient is awake, alert and oriented x 2. ASSESSMENT -Paroxysmal atrial fibrillation on eliquis -History of Hypertension -History of Hyperlipidemia -Type 2 diabetes -Peripheral vascular disease status post carotid endartectomy -CVA x 3 with left sided paralysis -Loop recorder placed 05/2016. -Vascular dementia -History of TIA PLAN -Will continue IV diuresis today- Lasix 20mg IV Q8hr today -Will continue home medication hydralaine 50mg TID, Losartan 100mg daily, carvedilol 6.25mg BID, amlodipine 10 mg daily, Eliquis 5 mg twice a day, losartan 100 mg daily. -Will change aspirin to 81mg daily -Heart Healthy Diet, I/Os, Daily Weights Nurse Practitioner note has been reviewed, I agree with a documented findings and plan of care. Patient was seen and examined. Objective - Vital Signs Vital signs: Vital Signs Temp 98.2 F 12/10/20 11:30 Pulse 68 12/10/20 11:30 Resp 16 12/10/20 11:30 BP 152/68 12/10/20 11:30 Pulse Ox 95 12/10/20 11:30 Intake & Output 12/09/20 12/10/20 12/10/20 18:59 06:59 18:59 Intake Total 600 Output Total 600 800 Balance 600 -600 -800 Weight 111 kg 102.5 kg Intake: Oral 600 Output: Urine 600 800 Other: Voiding Method External Catheter External Catheter External Catheter - Labs CBC & Chem 7: 12/10/20 05:38 12/10/20 05:38 Labs: Abnormal Lab Results - Last 24 Hours (Table) 12/09/20 12/09/20 12/09/20 Range/Units 07:28 16:50 19:38 Hgb (11.4-16.0) gm/dL Hct (34.0-46.0) % MCV (80.0-100.0) fL MCH (25.0-35.0) pg MCHC (31.0-37.0) g/dL RDW (11.5-15.5) % Sodium (137-145) mmol/L BUN (7-17) mg/dL Glucose (74-99) mg/dL POC Glucose (mg/dL) 129 H 115 H (75-99) mg/dL Iron 22 L (50-170) ug/dL % Saturation 5.63 L (12.00-45.00) Total Protein (6.3-8.2) g/dL Albumin (3.5-5.0) g/dL 12/10/20 12/10/20 12/10/20 Range/Units 05:38 05:38 06:06 Hgb 8.3 L (11.4-16.0) gm/dL Hct 29.0 L (34.0-46.0) % MCV 76.3 L (80.0-100.0) fL MCH 21.9 L (25.0-35.0) pg MCHC 28.6 L (31.0-37.0) g/dL RDW 15.8 H (11.5-15.5) % Sodium 133 L (137-145) mmol/L BUN 19 H (7-17) mg/dL Glucose 106 H (74-99) mg/dL POC Glucose (mg/dL) 107 H (75-99) mg/dL Iron (50-170) ug/dL % Saturation (12.00-45.00) Total Protein 6.2 L (6.3-8.2) g/dL Albumin 3.4 L (3.5-5.0) g/dL 12/10/20 Range/Units 11:41 Hgb (11.4-16.0) gm/dL Hct (34.0-46.0) % MCV (80.0-100.0) fL MCH (25.0-35.0) pg MCHC (31.0-37.0) g/dL RDW (11.5-15.5) % Sodium (137-145) mmol/L BUN (7-17) mg/dL Glucose (74-99) mg/dL POC Glucose (mg/dL) 105 H (75-99) mg/dL Iron (50-170) ug/dL % Saturation (12.00-45.00) Total Protein (6.3-8.2) g/dL Albumin (3.5-5.0) g/dL Microbiology - Last 24 Hours (Table) 12/09/20 00:30 Urine Culture - Preliminary Urine,Voided Gram Neg Bacilli
[2020-12-10] MEDS: AZITHROMYCIN 500 MG in SODIUM CHLORIDE 0.9% 250 ML IVPB SCH (15:05)
[2020-12-10 16:52] LABS: Glucose,Whole Blood 173 mg/dL (75-99)
[2020-12-10] MEDS: FERROUS SULFATE 325 MG TAB PO SCH (17:28)
[2020-12-10 20:36] LABS: Glucose,Whole Blood 114 mg/dL (75-99)
[2020-12-10] MEDS: ATORVASTATIN 80 MG TAB PO SCH (20:55)
[2020-12-10] MEDS: traZODone HCL 50 MG TAB PO SCH (20:55)
[2020-12-11] MEDS: FUROSEMIDE 10 MG/ML 2 ML VIAL IV SCH ×2 (00:38→06:38)
[2020-12-11] MEDS: hydrALAZINE HCL 50 MG TAB PO SCH ×4 (00:38→20:01)
[2020-12-11] MEDS: NITROGLYCERIN OINT 1 INCH/GM PACKET TOPICAL SCH ×5 (00:39→20:07)
[2020-12-11 05:33] LABS: Mycoplasma IgG Antibody (EIA) 2.23 INDEX (<=0.90); Mycoplasma IgM Antibody 0.12 INDEX (<=0.90)
[2020-12-11 06:36] LABS: Glucose,Whole Blood 101 mg/dL (75-99)
[2020-12-11] MEDS: carvediloL 6.25 MG TAB PO SCH ×2 (06:37→17:26)
[2020-12-11] MEDS: FERROUS SULFATE 325 MG TAB PO SCH ×2 (06:38→17:26)
--- NOTE | 2020-12-11 08:16 | P.PN ---
Subjective Progress Note Date: 12/11/20 Principal diagnosis: Dyspnea community acquired pneumonia This pleasant 65-year-old female is resting comfortably in bed in no acute distress, she is alert and oriented 1 and continues to have confusion. She does report that she does have a cough, with desaturation requiring oxygen via nasal cannula and her chest x-ray cannot exclude pneumonia ceftriaxone and azithyromycin were initiated; urinary culture results show gram negative bacilli, she is currently on ceftriaxone, no changes at this time. Echocardiogram reviewed she is then diuresed with Lasix 20 mg IV every 8 hours which she is currently tolerating. Will continue the IV antibiotics and transition her to oral antibiotics for home over the weekend if cleared by cardiology. Objective - Vital Signs Vital signs: Vital Signs Temp 97.7 F 12/11/20 04:00 Pulse 71 12/11/20 04:00 Resp 18 12/11/20 04:00 BP 128/71 12/11/20 04:00 Pulse Ox 78 L 12/11/20 04:00 Intake & Output 12/10/20 12/11/20 12/11/20 18:59 06:59 18:59 Intake Total 480 Output Total 1100 Balance -620 Weight 97.5 kg Intake: Oral 480 Output: Urine 1100 Other: Voiding Method External Catheter External Catheter # Bowel Movements 1 - Constitutional General appearance: Present: morbidly obese - EENT Eyes: Present: poor dentition ENT: Present: hearing grossly normal - Neck Neck: Present: normal ROM - Respiratory Respiratory: bilateral: diminished - Cardiovascular Rhythm: regular - Gastrointestinal General gastrointestinal: Present: decreased bowel sounds - Musculoskeletal Musculoskeletal: Present: generalized weakness, left sided weakness - Psychiatric Psychiatric Comment(s): Alert to self - Labs CBC & Chem 7: 12/10/20 05:38 12/10/20 05:38 Labs: Abnormal Lab Results - Last 24 Hours (Table) 12/08/20 12/10/20 12/10/20 Range/Units 12:47 11:41 16:50 POC Glucose (mg/dL) 105 H 173 H (75-99) mg/dL Mycoplasma pneumon IgG 2.23 H (<=0.90) INDEX 12/10/20 12/11/20 Range/Units 20:34 06:34 POC Glucose (mg/dL) 114 H 101 H (75-99) mg/dL Mycoplasma pneumon IgG (<=0.90) INDEX Microbiology - Last 24 Hours (Table) 12/09/20 00:30 Urine Culture - Preliminary Urine,Voided Gram Neg Bacilli - Imaging and Cardiology Chest x-ray: report reviewed Assessment and Plan Assessment: Shortness breath Community acquired pneumonia Acute on chronic urinary tract infection Acute pulmonary edema History of diabetes mellitus type II History of paroxysmal atrial fibrillation on eliquis History of CVA with left-sided flaccidity Hypertension Vascular dementia Plan: Continue medications as prescribed Continue antibiotics Continue cardiac monitoring Continue cardiology consultation for recommendations and plan Consult PT/OT for recommendations
[2020-12-11] MEDS: metFORMIN 500 MG TAB PO SCH ×2 (08:28→20:01)
[2020-12-11] MEDS: amLODIPine 10 MG TAB PO SCH (08:28)
[2020-12-11] MEDS: APIXABAN 5 MG TAB PO SCH ×2 (08:28→20:01)
[2020-12-11] MEDS: CITALOPRAM HYDROBROMIDE 20 MG TAB PO SCH (08:28)
[2020-12-11] MEDS: LOSARTAN 50 MG TAB PO SCH (08:28)
[2020-12-11] MEDS: levETIRAcetam 500 MG TAB PO SCH ×2 (08:28→20:01)
[2020-12-11] MEDS: ASPIRIN 81 MG PO SCH (08:28)
[2020-12-11] MEDS: AZITHROMYCIN 500 MG in SODIUM CHLORIDE 0.9% 250 ML IVPB SCH (08:29)
[2020-12-11 09:14] LABS: African American GFR (CKD) >90 (>60 ml/min/1.73 sqM); Anion Gap 8 mmol/L; Blood Urea Nitrogen 21 mg/dL (7-17); Calcium 9.5 mg/dL (8.4-10.2); Carbon Dioxide 26 mmol/L (22-30); Chloride 101 mmol/L (98-107); Glucose 91 mg/dL (74-99); Non-African American GFR(CKD) 82 (>60 ml/min/1.73 sqM); Potassium 4.2 mmol/L (3.5-5.1); Sodium 135 mmol/L (137-145)
--- NOTE | 2020-12-11 11:30 | P.PN ---
Subjective This is a pleasant 65-year-old female past medical history significant for paroxysmal atrial fibrillation on eliquis, hypertension, hyperlipidemia, type 2 diabetes, peripheral vascular disease status post carotid endartectomy, CVA with left sided paralysis, Loop recorder placed 05/2016, Vascular dementia, TIA. Patient is a poor historian. She follows in the office with Dr. Alicea. We have been asked to see in consultation for shortness of breath, possible congestive heart failure. Patient is a poor historian. On arrival to the emergency department patient's pulse ox was 80-85 on room air and was placed on 4 L nasal cannula Echo on 12/09/20 revealed left ventricular systolic function normal with an EF between 55- 60%. LV filling pressures cannot be estimated due to severe mitral annular calcification. RV mildly enlarged, LA moderately dilated. Mild aortic regurgitation, mild aortic stenosis present with mean gradient 12.98mmHg. Severe mitral annular calcification present. LA is moderately dilated. Mild pulmonary hypertension. Small, generalized pericardial effusion present. 12/11/20: Patient is seen and examined patient resting comfortably in bed, no apparent distress. Patient denies symptoms of chest pain, palpitations, orthopnea. Patient alert, oriented to person this morning. Is confused. Patient with doc umented oxygen saturation 78% on room air this morning 4am. Laboratory data reviewed, Sodium 135, K 4.2, renal function stable sCr 0.76. Vital signs taken before getting any antihypertensive medication- BP 187/77 HR 60s, RR 20, afebrile, 94% on 2L nasal cannula. Telemetry tracings indicate normal sinus rhythm HR 60-70s. Does have episodes of bradycardia HR 50s. I/Os today with 600mL urine output yesterday, 1100mL urine output today. Patient is incontinent. Patient currently being treated with IV azithromycin and IV ceftriaxone. Patient is currently maintained on lasix 20mg IV Q8hr, hydralazine 50mg TID, amlodipine 10 mg daily, Eliquis 5 mg twice a day, losartan 100 mg daily, aspirin 81 mg daily, carvedilol 6.25 mg by mouth twice a day, atorvastatin 80 mg nightly PHYSICAL EXAMINATION CONSTITUTIONAL: No apparent distress. HEENT: Head is normocephalic. Pupils are equal, round. Sclerae anicteric. Mucous membranes of the mouth are moist. No JVD. No carotid bruit. CHEST EXAMINATION: Diminished bilateral bases. . No chest wall tenderness is noted on palpation or with deep breathing. HEART EXAMINATION: Regular rate and rhythm. S1, S2 heard. No murmurs, gallops or rub. ABDOMEN: Soft, nontender. Positive bowel sounds. EXTREMITIES: 2+ peripheral pulses, non-pitting bilateral lower extremity edema (Leg appears > Right leg) and no calf tenderness. 2+ pitting edema left hand. NEUROLOGIC EXAMINATION: Left sided weakness. Patient is awake, alert and oriented x 1. ASSESSMENT -Acute diastolic heart failure -Paroxysmal atrial fibrillation on eliquis -History of Hypertension -History of Hyperlipidemia -Type 2 diabetes -Peripheral vascular disease status post carotid endartectomy -CVA x 3 with left sided paralysis -Loop recorder placed 05/2016. -Vascular dementia -History of TIA PLAN -Patient appears euvolemic today. Ok to discharge patient from cardiology perspective. Will transition to PO Lasix today. -Will continue home medication hydralazine 50mg TID, Losartan 100mg daily, carvedilol 6.25mg BID, amlodipine 10 mg daily, Eliquis 5 mg twice a day, losartan 100 mg daily, aspirin to 81mg daily -Heart Healthy Diet, I/Os, Daily Weights Nurse Practitioner note has been reviewed, I agree with a documented findings and plan of care. Patient was seen and examined. Objective - Vital Signs Vital signs: Vital Signs Temp 97.7 F 12/11/20 04:00 Pulse 71 12/11/20 04:00 Resp 18 12/11/20 04:00 BP 128/71 12/11/20 04:00 Pulse Ox 78 L 12/11/20 04:00 Intake & Output 12/10/20 12/10/20 12/11/20 06:59 18:59 06:59 Intake Total 480 Output Total 600 1100 Balance -600 -620 Weight 102.5 kg Intake: Oral 480 Output: Urine 600 1100 Other: Voiding Method External Catheter External Catheter External Catheter # Bowel Movements 1 - Labs CBC & Chem 7: 12/10/20 05:38 12/11/20 07:18 Labs: Abnormal Lab Results - Last 24 Hours (Table) 12/08/20 12/10/20 12/10/20 Range/Units 12:47 11:41 16:50 POC Glucose (mg/dL) 105 H 173 H (75-99) mg/dL Mycoplasma pneumon IgG 2.23 H (<=0.90) INDEX 12/10/20 12/11/20 Range/Units 20:34 06:34 POC Glucose (mg/dL) 114 H 101 H (75-99) mg/dL Mycoplasma pneumon IgG (<=0.90) INDEX Microbiology - Last 24 Hours (Table) 12/09/20 00:30 Urine Culture - Preliminary Urine,Voided Gram Neg Bacilli
[2020-12-11 11:35] LABS: Glucose,Whole Blood 91 mg/dL (75-99)
--- NOTE | 2020-12-11 12:16 | CDI ---
Documentation Clarification Form Date: 12/11/2020 11:38:01 AM From: Kylie Daniels RN CCDS Admit Date: 12/08/2020 02:14:00 PM Patient Name: Joanna Segovia Visit Number: [id number] Discharge Date: ATTENTION: The Clinical Documentation Specialists (CDI) and [facility] Coding Staff appreciate your assistance in clarifying documentation. Please respond to the clarification below the line at the bottom and electronically sign. The CDI & [facility] Coding staff will review the response and follow-up if needed. Please note: Queries are made part of the Legal Health Record. If you have any questions, please contact the author of this message via ITS. Dr. Larry Reinoso Possible congestive heart failure is document in the Cardiology consult 12/09 and progress note 12/10 History/Risk Factors: 65-year-old female presents to the ED with shortness of breath. Medical History: Possible CHF, HTN, Atrial Fib and DM. Documented in the H&P 12/08. Clinical Indicators: Extremities: 2+ peripheral pulses, non-pitting bilateral lower extremity edema (Leg appears>Right leg) and no calf tenderness. 2+ pitting edema left had. Documented in Cardiology 12/10 progress note. VS/Pulse OX 12/08: B/P 155/66; HR 61; Temp 98.4 F oral; RR 22; SpO2 85% room air. Echocardiogram Results 12/09: Left ventricular systolic function normal with an EF between 55-60%. Mild aortic regurgitation, mild aortic stenosis. Severe mitral annular calcification present. LA moderately dilated. Chest X Ray 12/08: Bibasilar increased attenuation obscures the hemidiaphragms. Central vascularity and interstitium are increased. Treatment: 12/08 Lasix 20mg IV x1; 12/08 Lasix 20mg IV Q8H BRODY d/c 12/11; 12/12 Lasix 40mg PO Daily. 12/08 Coreg 6.25mg PO BID-W/MEALS BRODY. In your professional opinion, can you please clarify the acuity and type of CHF if known? Acute Diastolic Heart Failure Acute on Chronic Heart Failure Heart Failure Ruled Out Unable to Determine Other, please specify (Last Revision: January 2018) Acute on chronic diastolic heart failure MTDD
[2020-12-11 16:38] LABS: Glucose,Whole Blood 113 mg/dL (75-99)
[2020-12-11] MEDS: ATORVASTATIN 80 MG TAB PO SCH (20:01)
[2020-12-11] MEDS: traZODone HCL 50 MG TAB PO SCH (20:01)
[2020-12-11 21:04] LABS: Glucose,Whole Blood 109 mg/dL (75-99)
[2020-12-12 07:41] LABS: Glucose,Whole Blood 86 mg/dL (75-99)
[2020-12-12 08:46] LABS: Anisocytosis Slight; Basophils % (A) 0 %; Eosinophils # (A) 0.1 k/uL (0-0.7); Eosinophils % (A) 2 %; HCT 25.9 % (34.0-46.0); HGB 7.3 gm/dL (11.4-16.0); Hypochromasia Marked; Lymphocytes # (A) 1.5 k/uL (1.0-4.8); Lymphocytes % (A) 32 %; MCH 22.4 pg (25.0-35.0); MCHC 28.1 g/dL (31.0-37.0); MCV 79.6 fL (80.0-100.0); Mean Platelet Volume 7.1; Monocytes # (A) 0.2 k/uL (0-1.0); Monocytes % (A) 5 %; Neutrophils # (A) 2.9 k/uL (1.3-7.7); Neutrophils % (A) 60 %; Platelet Count 193 k/uL (150-450); RBC 3.25 m/uL (3.80-5.40); RDW 16.4 % (11.5-15.5); WBC 4.8 k/uL (3.8-10.6)
[2020-12-12 08:58] LABS: ALT <6 U/L (4-34); AST 17 U/L (14-36); African American GFR (CKD) >90 (>60 ml/min/1.73 sqM); Albumin 3.1 g/dL (3.5-5.0); Alkaline Phosphatase 50 U/L (38-126); Anion Gap 7 mmol/L; Blood Urea Nitrogen 21 mg/dL (7-17); Calcium 9.3 mg/dL (8.4-10.2); Carbon Dioxide 26 mmol/L (22-30); Chloride 102 mmol/L (98-107); Glucose 80 mg/dL (74-99); Magnesium 1.5 mg/dL (1.6-2.3); Non-African American GFR(CKD) 90 (>60 ml/min/1.73 sqM); Potassium 4.4 mmol/L (3.5-5.1); Sodium 135 mmol/L (137-145); Total Bilirubin 0.4 mg/dL (0.2-1.3); Total Protein 5.8 g/dL (6.3-8.2)
[2020-12-12] MEDS: APIXABAN 5 MG TAB PO SCH ×2 (09:41→23:30)
[2020-12-12] MEDS: CITALOPRAM HYDROBROMIDE 20 MG TAB PO SCH (09:41)
[2020-12-12] MEDS: ASPIRIN 81 MG PO SCH (09:41)
[2020-12-12] MEDS: FERROUS SULFATE 325 MG TAB PO SCH ×2 (09:42→16:38)
[2020-12-12] MEDS: LOSARTAN 50 MG TAB PO SCH (09:42)
[2020-12-12] MEDS: amLODIPine 10 MG TAB PO SCH (09:42)
[2020-12-12] MEDS: hydrALAZINE HCL 50 MG TAB PO SCH ×3 (09:42→23:30)
[2020-12-12] MEDS: NITROGLYCERIN OINT 1 INCH/GM PACKET TOPICAL SCH ×4 (09:42→23:34)
[2020-12-12] MEDS: metFORMIN 500 MG TAB PO SCH ×2 (09:42→23:31)
[2020-12-12] MEDS: carvediloL 6.25 MG TAB PO SCH ×2 (09:42→16:38)
[2020-12-12] MEDS: FUROSEMIDE 40 MG TAB PO SCH (09:42)
[2020-12-12] MEDS: levETIRAcetam 500 MG TAB PO SCH ×2 (10:10→23:31)
[2020-12-12] MEDS: AZITHROMYCIN 500 MG TAB PO SCH (10:11)
[2020-12-12 11:56] LABS: Glucose,Whole Blood 89 mg/dL (75-99)
[2020-12-12 16:50] LABS: Glucose,Whole Blood 110 mg/dL (75-99)
--- NOTE | 2020-12-12 19:28 | XR ---
EXAMINATION TYPE: XR chest 1V portable DATE OF EXAM: 12/12/2020 COMPARISON: Chest x-ray 12/10/2020 HISTORY: Congestive heart failure TECHNIQUE: Single frontal view of the chest is obtained. FINDINGS: There is improvement in aeration as compared to prior exam. Heart remains enlarged. No pne umothorax or pleural effusion. IMPRESSION: Improvement in patient's volume status, aeration
[2020-12-12] MEDS: MEROPENEM 2 GM in SODIUM CHLORIDE 0.9% 100 ML IVPB SCH (19:52)
[2020-12-12] MEDS: ACETAMINOPHEN TAB 500 MG TAB PO PRN (20:02)
--- NOTE | 2020-12-12 20:37 | PN ---
PROGRESS NOTE DATE OF SERVICE: 12/12/2020 I am covering for Dr. Holley. This 65-year-old woman was admitted with shortness of breath and community-acquired pneumonia also had acute on chronic UTI. The patient is being followed by multiple consultants including Cardiology and Cardiology has noted atrial fibrillation. The patient is on Eliquis at this time. The patient also had ESBL E. coli. LAB: Hemoglobin is 8.3. Most recent chest x-ray which was done two days ago, which was reviewed personally by me, showed significant evidence of fluid overload at this time. PAST MEDICAL HISTORY: Reviewed. REVIEW OF SYSTEMS: CARDIOVASCULAR: No angina. RESPIRATORY: As mentioned earlier. GI: As mentioned earlier. : No dysuria. NERVOUS SYSTEM: No numbness or weakness. CURRENT MEDICATIONS: Reviewed include Tylenol, Norvasc, Eliquis, aspirin, Lipitor Zithromax, Coreg, Rocephin. Doses reviewed. PHYSICAL EXAM: Patient alert and oriented x2. Pulse 55, blood pressure 108/74, respiration 20, temperature 98.2, pulse ox 97% on room air. HEENT: Conjunctivae normal. Oral mucosa moist. NECK: No jugular venous distention. No lymph node enlargement. CARDIOVASCULAR: S1, S2, muffled. No S3, no S4, RESPIRATORY: Diminished breath sounds at the bases. Bilateral scattered rhonchi and crackles. ABDOMEN: Soft, nontender. LEGS: No edema, no swelling. NERVOUS SYSTEM: Higher functions mentioned earlier. Diffusely weak. LAB INVESTIGATIONS: WBC 4.8, hemoglobin 7.3, and ESBL E coli from the UTI. ASSESSMENT: 1. Congestive heart failure acute exacerbation, acute on chronic diastolic heart failure. 2. Paroxysmal atrial fibrillation, on Eliquis. 3. Possible community-acquired pneumonia. 4. ESBL E coli urinary tract infection. 5. Acute pulmonary edema. 6. History of diabetes type 2. 7. Anemia of undetermined significance. 8. History of cerebrovascular accident, left-sided weakness. 9. Hypertension. 10.Vascular dementia. RECOMMENDATIONS AND DISCUSSION: In this 65-year-old woman who presented with multiple complex medical issues, we will monitor the patient closely, continue the current management and continue symptomatic treatment. Will initiate Merrem for antibiotic coverage. Otherwise, continue with Lasix. I will repeat a chest x-ray. Low hemoglobin is also a concern. If the chest x- ray showed some clearing I would recommend one unit transfusion with Lasix 20 mg after and closely monitor.. Repeat labs to be ordered. Overall prognosis extremely guarded because of multiple complex medical issues as listed above. Further recommendations to follow. MMODL / IJN: [id number] /
[2020-12-12 21:15] LABS: Glucose,Whole Blood 129 mg/dL (75-99)
[2020-12-12] MEDS: traZODone HCL 50 MG TAB PO SCH (23:30)
[2020-12-12] MEDS: ATORVASTATIN 80 MG TAB PO SCH (23:31)
[2020-12-13] MEDS: MEROPENEM 2 GM in SODIUM CHLORIDE 0.9% 100 ML IVPB SCH ×2 (00:56→09:15)
[2020-12-13 07:31] LABS: Glucose,Whole Blood 90 mg/dL (75-99)
[2020-12-13] MEDS: carvediloL 6.25 MG TAB PO SCH ×3 (09:14→17:29)
[2020-12-13] MEDS: CITALOPRAM HYDROBROMIDE 20 MG TAB PO SCH ×2 (09:14→11:39)
[2020-12-13] MEDS: NITROGLYCERIN OINT 1 INCH/GM PACKET TOPICAL SCH ×5 (09:14→21:41)
[2020-12-13] MEDS: LOSARTAN 50 MG TAB PO SCH ×2 (09:14→11:40)
[2020-12-13] MEDS: FERROUS SULFATE 325 MG TAB PO SCH ×3 (09:15→17:29)
[2020-12-13] MEDS: ASPIRIN 81 MG PO SCH ×2 (09:15→11:40)
[2020-12-13] MEDS: hydrALAZINE HCL 50 MG TAB PO SCH ×4 (09:15→21:41)
[2020-12-13] MEDS: metFORMIN 500 MG TAB PO SCH ×3 (09:15→19:25)
[2020-12-13] MEDS: levETIRAcetam 500 MG TAB PO SCH ×3 (09:15→19:25)
[2020-12-13] MEDS: AZITHROMYCIN 500 MG TAB PO SCH (09:15)
[2020-12-13] MEDS: FUROSEMIDE 40 MG TAB PO SCH ×2 (09:15→11:39)
[2020-12-13] MEDS: APIXABAN 5 MG TAB PO SCH ×3 (09:15→20:25)
[2020-12-13] MEDS: amLODIPine 10 MG TAB PO SCH ×2 (09:15→11:39)
[2020-12-13] MEDS ORDERED: AZITHROMYCIN 500 MG TAB PO SCH (10:30)
[2020-12-13 11:49] LABS: Glucose,Whole Blood 109 mg/dL (75-99)
[2020-12-13 12:12] LABS: African American GFR (CKD) 88.4 (60.0-200.0); Anion Gap 6.6 mmol/L (4.00-12.00); BUN/Creat Ratio 23.75 Ratio (12.00-20.00); Calcium 9.2 mg/dL (8.7-10.3); Carbon Dioxide 29.4 mmol/L (21.6-31.8); Non-African American GFR(CKD) 76.3 (60.0-200.0)
[2020-12-13 12:15] LABS: Basophils # (A) 0.04 X 10*3/uL (0.00-0.10); Basophils % (A) 0.7 %; Eosinophils % (A) 1.8 %; Lymphocytes # (A) 2.09 X 10*3/uL (0.90-5.00); Lymphocytes % (A) 38.5 %; Monocytes # (A) 0.35 X 10*3/uL (0.20-1.00); Monocytes % (A) 6.4 %; Neutrophils # (A) 2.83 X 10*3/uL (1.80-7.70); Neutrophils % (A) 52.2 %
[2020-12-13 12:16] LABS: HCT 24.9 % (37.2-46.3); MCH 22.2 pg (27.0-32.0); MCHC 26.5 g/dL (32.0-37.0); MCV 83.8 fL (80.0-97.0); Platelet Count 214 X 10*3/uL (140-440); RBC 2.97 X 10*6/uL (4.10-5.20); RDW 16.3 % (11.5-14.5); WBC 5.43 X 10*3/uL (4.50-10.00)
[2020-12-13] MEDS ORDERED: FUROSEMIDE 10 MG/ML 4 ML VIAL IV PRN (13:11)
[2020-12-13] MEDS: ACETAMINOPHEN TAB 500 MG TAB PO PRN (15:49)
[2020-12-13] MEDS: MEROPENEM 1 GM in SODIUM CHLORIDE 0.9% 100 ML IVPB SCH (15:54)
[2020-12-13 16:35] LABS: Glucose,Whole Blood 119 mg/dL (75-99)
[2020-12-13 18:44] LABS: Appearance,Urine Cloudy (Clear); Bacteria,Urine Moderate /hpf; Bilirubin,Urine Negative (Negative); Blood,Urine Negative (Negative); Budding Yeast,Urine Rare /hpf; Color,Urine Yellow; Glucose,Urine (UA) Negative (Negative); Hyaline Casts,Urine 5 /lpf (0-2); Ketones,Urine Trace (Negative); Leukocyte Esterase,Urine Large (Negative); Mucus,Urine Moderate /hpf; Nitrite,Urine Negative (Negative); Protein,Urine Trace (Negative); Specific Gravity,Urine 1.013 (1.001-1.035); Squamous Epithelial Cell,Urine 1 /hpf (0-4); Urobilinogen,Urine <2.0 mg/dL (<2.0); WBC,Urine >182 /hpf (0-5)
[2020-12-13] MEDS: ALPRAZolam 0.5 MG TAB PO PRN (19:24)
[2020-12-13] MEDS: traZODone HCL 50 MG TAB PO SCH (19:24)
[2020-12-13] MEDS: ATORVASTATIN 80 MG TAB PO SCH (19:25)
--- NOTE | 2020-12-13 19:43 | PN ---
PROGRESS NOTE DATE OF SERVICE: 12/13/2020 I am covering for Dr. Holley. This 65-year-old woman was admitted with shortness of breath, community acquired pneumonia also had UTI. The patient had some change in mental status. A chest x-ray ordered by me was reviewed personally by me and showed improvement of the volume status. Lab johnson, hemoglobin is found to be 6.60. No obvious bleeding is noted at this time. Urine Legionella is negative. Past medical history reviewed. REVIEW OF SYSTEMS: CARDIOVASCULAR SYSTEM: No angina. RESPIRATION as mentioned earlier. GI: As mentioned earlier. : No dysuria. NERVOUS SYSTEM: No numbness or weakness. CURRENT MEDICATIONS: Reviewed and include: Tylenol, Norvasc, Eliquis, aspirin, Lipitor, Lasix, Glucophage, Desyrel. PHYSICAL EXAM: Patient is alert, oriented x2. Pulse 60, blood pressure 116/60, respiration 18, temperature 98.2, pulse ox 97% on 3 L. HEENT: Conjunctivae pale. NECK: No JVD. CARDIOVASCULAR: S1, S2. RESPIRATION: Breath sounds diminished in the bases. No rhonchi. No crackles. ABDOMEN: Soft, nontender. NERVOUS SYSTEM: No focal deficits. LABS: WBC 5.4, hemoglobin 6.6. Other labs are noted. ASSESSMENT: 1. Congestive heart failure, acute exacerbation with acute on chronic diastolic failure. 2. Anemia, rule out acute blood loss anemia, exact etiology undetermined. 3. Paroxysmal atrial fibrillation, on Eliquis. 4. Possible community-acquired pneumonia. 5. ESBL E coli on meropenem. 6. Acute pulmonary edema. 7. History of diabetes type 2. 8. Anemia of undetermined significance. 9. History of cerebrovascular accident, transient ischemic attack, left-sided weakness. 10.Hypertension. 11.History of vascular dementia. RECOMMENDATIONS AND DISCUSSION: Recommend to continue current medications, symptomatic treatment. Otherwise at this time I would recommend to closely monitor the patient. Continue the antibiotics. 1 unit transfusion. Monitor hemoglobin closely. I would also recommend a CT scan of the abdomen and pelvis to rule out the possibility of retroperitoneal bleed. Stool occult blood also. MMODL / IJN: [id number] /
[2020-12-13 20:48] LABS: Glucose,Whole Blood 115 mg/dL (75-99)
[2020-12-13 21:23] LABS: Anisocytosis Slight; HCT 27.8 % (34.0-46.0); HGB 8.5 gm/dL (11.4-16.0); Hypochromasia Marked; MCH 24.6 pg (25.0-35.0); MCHC 30.6 g/dL (31.0-37.0); MCV 80.6 fL (80.0-100.0); Platelet Count 190 k/uL (150-450); Poikilocytosis Slight; RBC 3.45 m/uL (3.80-5.40); RDW 18.6 % (11.5-15.5); WBC 5.7 k/uL (3.8-10.6)
[2020-12-14] MEDS: MEROPENEM 1 GM in SODIUM CHLORIDE 0.9% 100 ML IVPB SCH ×4 (00:59→23:09)
--- NOTE | 2020-12-14 06:51 | CONS ---
CONSULTATION DATE OF SERVICE: 12/13/2020 REASON FOR CONSULTATION: ESBL urinary tract infection. HISTORY OF PRESENT ILLNESS: The patient is a 65-year-old female presenting to the ER at [facility] on 08 December 2020 for evaluation of hypoxemia and increasing shortness of breath. Apparently, the patient was noticed oxygen saturations of 70% on room air at home. On arrival to the ER, the patient was at 85% and was placed on 4 liters nasal cannula. The patient did have a history of stroke with left-sided paralysis. Did have a history of recurrent UTI. The patient denies any symptoms to the ER physician. Denies having any headache. No URI symptoms. No chest pain, shortness of breath or cough. No nausea, no vomiting. No abdominal pain. No diarrhea. On presentation to the hospital, the patient has been afebrile. The patient did have a normal white count. The patient did have a positive UA with urine culture that has been finalized with ESBL E coli. The patient was started on meropenem 2 grams q.8 hours. Continued on Rocephin and Zithromax as well as there was a question of possible pneumonia on admission. Infectious Disease was consulted for further management of antibiotic therapy. REVIEW OF SYSTEMS: Positive points have been mentioned in HPI. Rest of the systems are negative. PAST MEDICAL HISTORY: Atrial fibrillation, CVA, TIA, diabetes mellitus, hypertension, previous history of ESBL and MRSA urinary tract infection. PAST SURGICAL HISTORY: Tubal ligation, carotid endarterectomy. SOCIAL HISTORY: Remote history of smoking. No drinking or drug use. FAMILY HISTORY: . ALLERGIES: LORAZEPAM. MEDICATIONS: Home medications include the patient is currently on Tylenol, Xanax, Norvasc, Eliquis, aspirin, Lipitor, Coreg, Celexa, iron sulfate, Lasix, hydralazine, meropenem 2 grams q8h. He is on Rocephin and Zithromax. PHYSICAL EXAMINATION: VITAL SIGNS: Her blood pressure is 125/69, pulse of 70, temperature of 98.2. She is 93% on 3 L nasal cannula. GENERAL DESCRIPTION: Is an elderly female lying in bed in no distress. No tachypnea or accessory muscles of respiration use. HEENT: Examination shows slight pallor. No scleral icterus. Oral mucous membrane is dry. NECK: Trachea central, no thyromegaly. LUNGS: Unlabored breathing, decreased breath sounds in the base, with no wheeze or crackle. HEART: S1, S2. Regular rate and rhythm. ABDOMEN: Soft, no tenderness. No guarding or rigidity. EXTREMITIES: No edema of the feet. SKIN: No rash or masses palpable. NEUROLOGIC: The patient is awake, alert, oriented. Mood and affect normal. LABS: Hemoglobin 8.5, white count 5.7, BUN of 19, creatinine 0.8. Electrolytes have been normal. Urine was positive culture with ESBL E coli. DIAGNOSTIC IMPRESSION: Patient admitted to the hospital with hypoxemia, possibly related to underlying congestive heart failure. Clinically not behaving as pneumonia in this patient who did have a history of recurrent urinary tract infections. Did have a positive UA. Concern for possible asymptomatic bacteruria but now has significant urinary symptoms with some mild cystitis. Clinically doubt deep infection. PLAN: 1. We will check a postvoid residual and may need Goodman catheter if the patient is retaining urine. 2. We will repeat a UA and culture. 3. Decrease the dose of meropenem to 1 g q.8 hours and discontinue Rocephin and Zithromax. 4. We will follow on her clinical condition and further adjust medication if needed. Thank you for this consultation. Will follow this patient along with you. MMODL / IJN: [id number] /
[2020-12-14 07:22] LABS: Glucose,Whole Blood 82 mg/dL (75-99)
[2020-12-14] MEDS: IOPAMIDOL CONTRAST (ORAL USE) VIAL PO PRN ×2 (07:45→08:50)
[2020-12-14] MEDS: metFORMIN 500 MG TAB PO SCH ×2 (07:54→19:55)
[2020-12-14] MEDS: ACETAMINOPHEN TAB 500 MG TAB PO PRN (08:49)
[2020-12-14 09:01] LABS: Basophils # (A) 0.04 X 10*3/uL (0.00-0.10); Basophils % (A) 0.7 %; Eosinophils # (A) 0.13 X 10*3/uL (0.04-0.35); Eosinophils % (A) 2.3 %; HCT 27.7 % (37.2-46.3); HGB 7.6 g/dL (12.0-15.0); Lymphocytes # (A) 1.93 X 10*3/uL (0.90-5.00); Lymphocytes % (A) 33.9 %; MCH 23.5 pg (27.0-32.0); MCHC 27.4 g/dL (32.0-37.0); MCV 85.5 fL (80.0-97.0); Mean Platelet Volume 10.5 fL (9.5-12.2); Monocytes # (A) 0.33 X 10*3/uL (0.20-1.00); Monocytes % (A) 5.8 %; Neutrophils # (A) 3.24 X 10*3/uL (1.80-7.70); Neutrophils % (A) 56.9 %; Platelet Count 192 X 10*3/uL (140-440); RBC 3.24 X 10*6/uL (4.10-5.20); RDW 17.4 % (11.5-14.5); WBC 5.69 X 10*3/uL (4.50-10.00)
[2020-12-14 09:20] LABS: HGB 6.6 g/dL (12.0-15.0)
--- NOTE | 2020-12-14 09:34 | CT ---
EXAMINATION TYPE: CT abdomen pelvis wo con DATE OF EXAM: 12/14/2020 HISTORY: gi bleed, blood loss. CT DLP: 2081 mGycm. Automated Exposure Control for Dose Reduction was Utilized. TECHNIQUE: CT scan of the abdomen and pelvis is performed with oral but without IV contrast. COMPARISON: CT July 09, 2019 FINDINGS: Within the limitations of a non-contrast study, the following observations are made. LUNG BASES: At least small bilateral pleural effusions with associated compressive atelectasis larger from prior. Small pericardial effusion anterior inferior aspect larger from prior. LIVER/GB: Gallbladder has distended margins and is dilated without surrounding inflammatory change on current study. PANCREAS: No significant abnormality is seen. SPLEEN: No significant abnormality is seen. 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 KIDNEYS: Cortical thinning both kidneys. Roughly 5-6 new punctate calculi scattered throughout the ri ght kidney. No right-sided hydronephrosis. Left kidney shows persistent moderate to severe pyelocalie ctasis without hydroureter. There is 10 mm collecting system calculus axial image 52 redemonstrated. There is 4 mm nonobstructing calculus in left sided calyx axial image 54. Suspect UPJ stricture or st enosis. No intraluminal calculus and poorly distended bladder. Scattered bilateral pelvic phleboliths . BOWEL: Oral contrast does not reach distal ileal bowel loops. There is no suspicious small or large b owel dilatation. GENITAL ORGANS: Anteverted uterus. LYMPH NODES: No greater than 1cm abdominal or pelvic lymph nodes are appreciated. OSSEOUS STRUCTURES: Kmuubuot-co-hibnai disc space narrowing lumbosacral junction.. OTHER: Moderate diffuse subcutaneous edema in the lateral flanks of the abdomen. Moderate to severe c alcified plaque of the smaller arterial branch vessels. IMPRESSION: No suspicious retroperitoneal fluid collection to suggest hematoma. At least small bilate ral pleural effusions with moderate subcutaneous edema consistent with desired fluid overload state.
[2020-12-14] MEDS: FERROUS SULFATE 325 MG TAB PO SCH ×2 (09:41→16:39)
[2020-12-14] MEDS: ASPIRIN 81 MG PO SCH (09:41)
[2020-12-14] MEDS: APIXABAN 5 MG TAB PO SCH ×2 (09:41→19:53)
[2020-12-14] MEDS: CITALOPRAM HYDROBROMIDE 20 MG TAB PO SCH (09:41)
[2020-12-14] MEDS: amLODIPine 10 MG TAB PO SCH (09:41)
[2020-12-14] MEDS: hydrALAZINE HCL 50 MG TAB PO SCH ×2 (09:41→16:39)
[2020-12-14] MEDS: FUROSEMIDE 40 MG TAB PO SCH (09:41)
[2020-12-14] MEDS: NITROGLYCERIN OINT 1 INCH/GM PACKET TOPICAL SCH ×4 (09:42→21:01)
[2020-12-14] MEDS: carvediloL 6.25 MG TAB PO SCH ×2 (09:42→16:39)
[2020-12-14] MEDS: levETIRAcetam 500 MG TAB PO SCH ×2 (09:42→19:55)
[2020-12-14] MEDS: LOSARTAN 50 MG TAB PO SCH (09:42)
[2020-12-14 09:50] LABS: African American GFR (CKD) 103.9 (60.0-200.0); Anion Gap 8.1 mmol/L (4.00-12.00); BUN/Creat Ratio 24.29 Ratio (12.00-20.00); Calcium 9.4 mg/dL (8.7-10.3); Carbon Dioxide 27.9 mmol/L (21.6-31.8); Non-African American GFR(CKD) 89.7 (60.0-200.0); Potassium 3.9 mmol/L (3.5-5.5)
[2020-12-14 11:21] LABS: Glucose,Whole Blood 91 mg/dL (75-99)
--- NOTE | 2020-12-14 12:23 | P.PN ---
Subjective Progress Note Date: 12/14/20 HISTORY OF PRESENT ILLNESS This is a 65-year-old female patient treated for ESBL urinary tract infection. Bladder scan was done and patient did not have urinary retention. Urine culture is ESBL E. coli and patient is currently on meropenem. Repeat urine culture is in process. Patient denies having any abdominal pain. No chest pain, no cough no sputum production. CAT scan of the abdomen and pelvis without contrast revealed no suspicious retroperitoneal fluid collection to suggest hematoma area and small bilateral pleural effusions with moderate diffuse edema consistent with fluid overload state. PHYSICAL EXAMINATION Gen: This is a 65-year-old female. Patient is resting but appears to be comfortable. HEENT: Head is atraumatic, normocephalic. Pupils equal, round. Sclerae is an icteric. NECK: Supple. No JVD. No lymphadenopathy. LUNGS: Clear to auscultation. No wheezes or rhonchi. No intercostal retractions. HEART: Regular rate and rhythm. ABDOMEN: Soft. No masses. No tenderness. EXTREMITIES: No pedal edema. No calf tenderness. NEUROLOGICAL: Patient is awake, alert and oriented x3. ASSESSMENT ESBL E. coli urinary tract infection Urinary retention ruled out PLAN Await repeat urine culture Plan for 2-3 days of carbapenem Further recommendations based upon patient's clinical course The above dictated assessment and findings were discussed with Dr. Dutta. The impression and plan of care have been directed as dictated. Hellen Epstein nurse practitioner acting as scribe for Dr. Dutta. Objective - Vital Signs Vital signs: Vital Signs Temp 97.9 F 12/14/20 07:00 Pulse 57 L 12/14/20 07:00 Resp 17 12/14/20 07:00 BP 126/54 12/14/20 07:00 Pulse Ox 95 12/14/20 07:00 Intake & Output 12/13/20 12/14/20 12/14/20 18:59 06:59 18:59 Intake Total 0 310 Output Total 600 900 Balance -600 -590 Weight 109.6 kg Intake: Blood Product 0 310 Rc As-1 Unit 0 310 [id number] Output: Urine 600 900 Straight 100 Other: Voiding Method External Catheter External Catheter External Catheter - Labs CBC & Chem 7: 12/14/20 05:17 12/14/20 05:17 Labs: Abnormal Lab Results - Last 24 Hours (Table) 12/13/20 12/13/20 12/13/20 Range/Units 06:47 06:47 11:48 RBC 2.97 L (4.10-5.20) X 10*6/uL Hgb 6.6 L* (12.0-15.0) g/dL Hct 24.9 L (37.2-46.3) % MCH 22.2 L (27.0-32.0) pg MCHC 26.5 L (32.0-37.0) g/dL RDW 16.3 H (11.5-14.5) % BUN/Creatinine Ratio 23.75 H (12.00-20.00) Ratio POC Glucose (mg/dL) 109 H (75-99) mg/dL Urine Appearance (Clear) Urine Protein (Negative) Urine Ketones (Negative) Ur Leukocyte Esterase (Negative) Urine WBC (0-5) /hpf Urine WBC Clumps (None) /hpf Urine Bacteria (None) /hpf Hyaline Casts (0-2) /lpf Urine Mucus (None) /hpf Urine Yeast (Budding) (None) /hpf Crossmatch 12/13/20 12/13/20 12/13/20 Range/Units 14:20 16:34 18:13 RBC (4.10-5.20) X 10*6/uL Hgb (12.0-15.0) g/dL Hct (37.2-46.3) % MCH (27.0-32.0) pg MCHC (32.0-37.0) g/dL RDW (11.5-14.5) % BUN/Creatinine Ratio (12.00-20.00) Ratio POC Glucose (mg/dL) 119 H (75-99) mg/dL Urine Appearance Cloudy H (Clear) Urine Protein Trace H (Negative) Urine Ketones Trace H (Negative) Ur Leukocyte Esterase Large H (Negative) Urine WBC >182 H (0-5) /hpf Urine WBC Clumps Moderate H (None) /hpf Urine Bacteria Moderate H (None) /hpf Hyaline Casts 5 H (0-2) /lpf Urine Mucus Moderate H (None) /hpf Urine Yeast (Budding) Rare H (None) /hpf Crossmatch See Detail 03/07/21 03/07/21 03/08/21 Range/Units 20:46 21:03 05:17 RBC 3.45 L 3.24 L (4.10-5.20) X 10*6/uL Hgb 8.5 L 7.6 L (12.0-15.0) g/dL Hct 27.8 L 27.7 L (37.2-46.3) % MCH 24.6 L 23.5 L (27.0-32.0) pg MCHC 30.6 L 27.4 L (32.0-37.0) g/dL RDW 18.6 H 17.4 H (11.5-14.5) % BUN/Creatinine Ratio (12.00-20.00) Ratio POC Glucose (mg/dL) 115 H (75-99) mg/dL Urine Appearance (Clear) Urine Protein (Negative) Urine Ketones (Negative) Ur Leukocyte Esterase (Negative) Urine WBC (0-5) /hpf Urine WBC Clumps (None) /hpf Urine Bacteria (None) /hpf Hyaline Casts (0-2) /lpf Urine Mucus (None) /hpf Urine Yeast (Budding) (None) /hpf Crossmatch 12/14/20 Range/Units 05:17 RBC (4.10-5.20) X 10*6/uL Hgb (12.0-15.0) g/dL Hct (37.2-46.3) % MCH (27.0-32.0) pg MCHC (32.0-37.0) g/dL RDW (11.5-14.5) % BUN/Creatinine Ratio 24.29 H (12.00-20.00) Ratio POC Glucose (mg/dL) (75-99) mg/dL Urine Appearance (Clear) Urine Protein (Negative) Urine Ketones (Negative) Ur Leukocyte Esterase (Negative) Urine WBC (0-5) /hpf Urine WBC Clumps (None) /hpf Urine Bacteria (None) /hpf Hyaline Casts (0-2) /lpf Urine Mucus (None) /hpf Urine Yeast (Budding) (None) /hpf Crossmatch Microbiology - Last 24 Hours (Table) 12/13/20 18:13 Urine Culture - Preliminary Urine,Voided
--- NOTE | 2020-12-14 12:25 | XR ---
EXAMINATION TYPE: XR chest 1V portable DATE OF EXAM: 12/14/2020 Comparison: 12/12/2020 Clinical History: 65-year-old female CHF Findings: Heart is enlarged. Loop recorder device noted over the left heart. Diffuse interstitial and patchy ai rspace opacities greatest in the mid and lower lungs. Josefina B lines are demonstrated. Small to moder ate right and small left effusions. Impression: 1. Findings in keeping with CHF with patchy bilateral pulmonary edema. Findings worsened from prior. 2. Small to moderate right and small left effusions with adjacent atelectasis and/or consolidation.
[2020-12-14 16:26] LABS: Glucose,Whole Blood 108 mg/dL (75-99)
--- NOTE | 2020-12-14 16:30 | PN ---
PROGRESS NOTE DATE OF SERVICE: 12/14/2020 I am covering for Dr. Holley. This 65 -year-old woman was admitted with CHF exacerbation and anemia. The exact etiology of anemia is unknown at this time. The patient received one unit transfusion yesterday. Hemoglobin was down to 7.3, but today is again 7.6 after 8.5. The patient being closely monitored. UA shows significant UTI. The culture showed E coli which is ESBL. PAST MEDICAL HISTORY: Reviewed. REVIEW OF SYSTEMS: CARDIOVASCULAR SYSTEM: No angina. RESPIRATORY SYSTEM: As mentioned earlier. GI: As mentioned earlier. : As mentioned earlier. NERVOUS SYSTEM: No numbness or weakness. MEDICATIONS: Current medications are reviewed and include Tylenol. Xanax, Eliquis, Lipitor, Coreg. Celexa. Doses are reviewed. PHYSICAL EXAMINATION: Patient is alert and oriented x2. Pulse 56, blood pressure 147/70, respirations 18, temperature 98.2, pulse ox 96% on 3 L. HEENT: Conjunctivae normal. NECK: No jugular venous distention. CARDIOVASCULAR: S1, S2 muffled. RESPIRATORY: Breath sounds diminished in the bases. No rhonchi. No crackles. ABDOMEN: Soft, nontender. No mass palpable. LEGS: No edema, no swelling. NERVOUS SYSTEM: No focal deficits. LABS: WBC 5.6, hemoglobin 7.6. ASSESSMENT: 1. Congestive heart failure acute exacerbation acute on chronic diastolic dysfunction. 2. Anemia, rule out acute blood loss anemia, exact etiology undetermined, status post blood transfusion. 3. Urinary tract infection with ESBL Escherichia coli, on meropenem. 4. Paroxysmal atrial fibrillation. On Eliquis. 5. Possible community-acquired pneumonia. 6. Acute pulmonary edema. 7. History of diabetes mellitus type 2. 8. Anemia of undetermined significance. 9. History of cerebrovascular accident, transient ischemic attack, left-sided weakness. 10.Hypertension. 11.History of vascular dementia. 12.FULL CODE. RECOMMENDATIONS AND DISCUSSION: In this 65-year-old woman who presented with multiple complex medical issues, we will monitor the patient closely, continue the current medications, continues symptomatic treatment. Otherwise, the UA is still profoundly abnormal. Continue with meropenem and Infectious Disease has been consulted. Abdomen and pelvis CAT scan noted. Prognosis is extremely guarded because of multiple complex medical issues. Further recommendations to follow. Dr. Rhys Holley will follow tomorrow. MMODL / IJN: [id number] /
[2020-12-14] MEDS: FUROSEMIDE 10 MG/ML 4 ML VIAL IV SCH ×2 (16:38→21:00)
[2020-12-14] MEDS: traZODone HCL 50 MG TAB PO SCH (19:53)
[2020-12-14] MEDS: ATORVASTATIN 80 MG TAB PO SCH (19:53)
[2020-12-14 20:20] LABS: Glucose,Whole Blood 113 mg/dL (75-99)
[2020-12-15] MEDS: hydrALAZINE HCL 50 MG TAB PO SCH ×4 (00:46→20:51)
[2020-12-15] MEDS: metFORMIN 500 MG TAB PO SCH ×2 (06:50→20:51)
[2020-12-15 06:54] LABS: Glucose,Whole Blood 90 mg/dL (75-99)
[2020-12-15 08:32] LABS: Basophils # (A) 0.04 X 10*3/uL (0.00-0.10); Basophils % (A) 0.8 %; Eosinophils # (A) 0.18 X 10*3/uL (0.04-0.35); Eosinophils % (A) 3.8 %; HCT 28.5 % (37.2-46.3); HGB 8.1 g/dL (12.0-15.0); Lymphocytes # (A) 1.74 X 10*3/uL (0.90-5.00); Lymphocytes % (A) 36.8 %; MCH 23.9 pg (27.0-32.0); MCHC 28.4 g/dL (32.0-37.0); MCV 84.1 fL (80.0-97.0); Mean Platelet Volume 10.8 fL (9.5-12.2); Monocytes # (A) 0.31 X 10*3/uL (0.20-1.00); Monocytes % (A) 6.6 %; Neutrophils # (A) 2.45 X 10*3/uL (1.80-7.70); Neutrophils % (A) 51.8 %; Platelet Count 186 X 10*3/uL (140-440); RBC 3.39 X 10*6/uL (4.10-5.20); RDW 18.2 % (11.5-14.5); WBC 4.73 X 10*3/uL (4.50-10.00)
[2020-12-15] MEDS: MEROPENEM 1 GM in SODIUM CHLORIDE 0.9% 100 ML IVPB SCH ×3 (08:48→23:13)
--- NOTE | 2020-12-15 08:58 | XR ---
EXAMINATION TYPE: XR chest 1V portable DATE OF EXAM: 12/15/2020 COMPARISON: Chest x-ray 12/14/2020 HISTORY: Shortness of breath TECHNIQUE: Single frontal view of the chest is obtained. FINDINGS: Findings are similar to prior exam. Patient is rotated. There is no evident pneumothorax. Bibasilar increased attenuation is noted, the heart is stable. There is an overlying loop recorder. C entral vascularity and interstitium are increased. IMPRESSION: Correlate for congestive heart failure, pneumonia not excluded. There are basilar effusi ons.
[2020-12-15] MEDS: FUROSEMIDE 10 MG/ML 4 ML VIAL IV SCH ×2 (08:59→20:01)
[2020-12-15] MEDS: CITALOPRAM HYDROBROMIDE 20 MG TAB PO SCH (08:59)
[2020-12-15] MEDS: LOSARTAN 50 MG TAB PO SCH (08:59)
[2020-12-15] MEDS: APIXABAN 5 MG TAB PO SCH ×2 (08:59→20:01)
[2020-12-15] MEDS: FERROUS SULFATE 325 MG TAB PO SCH ×2 (08:59→16:58)
[2020-12-15] MEDS: amLODIPine 10 MG TAB PO SCH (08:59)
[2020-12-15] MEDS: ASPIRIN 81 MG PO SCH (08:59)
[2020-12-15] MEDS: carvediloL 6.25 MG TAB PO SCH ×2 (08:59→16:58)
[2020-12-15 09:38] LABS: ALT <8 U/L (8-44); AST 18 U/L (13-35); African American GFR (CKD) 103.9 (60.0-200.0); Albumin/Globulin Ratio 1.83 (1.60-3.17); Alkaline Phosphatase 62 U/L (41-126); BUN/Creat Ratio 24.29 Ratio (12.00-20.00); Calcium 9.4 mg/dL (8.7-10.3); Carbon Dioxide 31.8 mmol/L (21.6-31.8); Chloride 101 mmol/L (96-109); Globulin 1.8 g/dL (1.6-3.3); Glucose 72 mg/dL (70-110); Non-African American GFR(CKD) 89.7 (60.0-200.0); Potassium 3.7 mmol/L (3.5-5.5); Sodium 139 mmol/L (135-145); Total Bilirubin 0.3 mg/dL (0.3-1.2); Total Protein 5.1 g/dL (6.2-8.2)
[2020-12-15] MEDS: levETIRAcetam 500 MG TAB PO SCH ×2 (09:42→20:01)
[2020-12-15] MEDS: NITROGLYCERIN OINT 1 INCH/GM PACKET TOPICAL SCH ×4 (09:42→20:50)
[2020-12-15 11:24] LABS: Glucose,Whole Blood 92 mg/dL (75-99)
--- NOTE | 2020-12-15 12:51 | P.PN ---
Subjective Progress Note Date: 12/15/20 Principal diagnosis: Acute on chronic congestive heart failure diastolic acute urinary tract infection anemia Evaluated a 65-year-old female this a.m., resting comfortably in bed. Patient alert the person; patient able to answer your questions limited due to underlying history of cerebrovascular incidents. Patient has significant episodes of fluid overload intermittent diuresis; acute urinary tract infection carbapen has been initiated due to culture and sensitivity. Significant rising hemoglobin after one unit of packed blood red blood cells, continue ferous sulfate 325 mg PO BID. Objective - Vital Signs Vital signs: Vital Signs Temp 97.5 F L 12/15/20 07:57 Pulse 70 12/15/20 08:47 Resp 17 12/15/20 07:57 BP 136/75 12/15/20 08:47 Pulse Ox 98 12/15/20 07:57 Intake & Output 12/14/20 12/15/20 12/15/20 18:59 06:59 18:59 Intake Total 100 Output Total 500 2200 1400 Balance -500 -2100 -1400 Weight 108.5 kg Intake: Oral 100 Output: Urine 500 2200 1400 Other: Voiding Method External Catheter External Catheter External Catheter - Constitutional General appearance: Present: cooperative, obese - EENT Eyes: Present: PERRLA ENT: Present: hard of hearing - Respiratory Respiratory: bilateral: diminished (Anterior and posterior lung clifford) - Cardiovascular Details: Normal sinus rhythm Heart rate: 72 Rhythm: regular Heart sounds: normal: S1, S2 - Peripheral edema leg Peripheral Edema: bilateral: 2+ ankle Peripheral Edema: bilateral: 3+ foot Peripheral Edema: bilateral: 2+ - Peripheral pulses radial pulse Peripheral Pulses: bilateral: Normal - Gastrointestinal General gastrointestinal: Present: normal bowel sounds - Integumentary Integumentary: Present: pale - Musculoskeletal Musculoskeletal: Present: generalized weakness, left sided weakness - Psychiatric Psychiatric Comment(s): Alert the person; disorient to place, time and situation - Allied health notes Allied health notes reviewed: nursing - Labs CBC & Chem 7: 12/15/20 05:14 12/15/20 05:14 Labs: Abnormal Lab Results - Last 24 Hours (Table) 12/14/20 12/14/20 12/15/20 Range/Units 16:22 20:19 05:14 RBC 3.39 L (4.10-5.20) X 10*6/uL Hgb 8.1 L (12.0-15.0) g/dL Hct 28.5 L (37.2-46.3) % MCH 23.9 L (27.0-32.0) pg MCHC 28.4 L (32.0-37.0) g/dL RDW 18.2 H (11.5-14.5) % BUN/Creatinine Ratio (12.00-20.00) Ratio POC Glucose (mg/dL) 108 H 113 H (75-99) mg/dL ALT (8-44) U/L Total Protein (6.2-8.2) g/dL Albumin (3.80-4.90) g/dL 12/15/20 Range/Units 05:14 RBC (4.10-5.20) X 10*6/uL Hgb (12.0-15.0) g/dL Hct (37.2-46.3) % MCH (27.0-32.0) pg MCHC (32.0-37.0) g/dL RDW (11.5-14.5) % BUN/Creatinine Ratio 24.29 H (12.00-20.00) Ratio POC Glucose (mg/dL) (75-99) mg/dL ALT <8 L (8-44) U/L Total Protein 5.1 L (6.2-8.2) g/dL Albumin 3.30 L (3.80-4.90) g/dL Microbiology - Last 24 Hours (Table) 12/13/20 18:13 Urine Culture - Final Urine,Voided - Imaging and Cardiology Chest x-ray: report reviewed Assessment and Plan Assessment: Acute urinary tract infection ESBL acute on chronic diastolic heart failure anemia possible community acquired pneumonia diabetes mellitus type II [id number] paroxysmal atrial fibrillation history of CVA/TIA left-sided weakness memory impairment hypertension vascular dementia full code Plan: Acute urinary tract infection continue antibiotic thrapy anemia status post blood transfusion hemoglobin 8.1 continue iron supplementation BID acute on chronic diastolic heart failure continue nitro paste/and diuresis diabetes mellitus type II continue sliding scale Continue to monitor hemoglobin and hematocrit continue to monitor vital signs continue medical management Time with Patient: Greater than 30
[2020-12-15 16:32] LABS: Glucose,Whole Blood 193 mg/dL (75-99)
[2020-12-15] MEDS: ACETAMINOPHEN TAB 500 MG TAB PO PRN (20:01)
[2020-12-15] MEDS: ATORVASTATIN 80 MG TAB PO SCH (20:01)
[2020-12-15] MEDS: traZODone HCL 50 MG TAB PO SCH (20:01)
[2020-12-15 20:31] LABS: Glucose,Whole Blood 148 mg/dL (75-99)
[2020-12-15] MEDS: DICLOFENAC SODIUM GEL 100 GM TUBE TOPICAL SCH (20:50)
--- NOTE | 2020-12-15 22:58 | PN ---
PROGRESS NOTE DATE OF SERVICE: 12/15/2020 REASON FOR FOLLOWUP: ESBL E coli urinary tract infection. INTERVAL HISTORY: The patient is currently afebrile. The patient is breathing comfortably. The patient denies having any chest pain or shortness of breath or cough. No nausea, no vomiting, no abdominal pain or diarrhea. PHYSICAL EXAMINATION: Blood pressure 105/67, pulse of 59, temperature 97.4. She is 95% on 3 L nasal cannula. General description is an elderly female lying in bed in no distress. RESPIRATORY SYSTEM: Unlabored breathing. Clear to auscultation anteriorly. HEART: S1, S2. Regular rate and rhythm. ABDOMEN: Soft. No tenderness. LABS: Hemoglobin is 8.9, white count of 4.7 with a BUN of 17, creatinine 0.7. Repeat urine is negative. DIAGNOSTIC IMPRESSION AND PLAN: Patient with extended-spectrum beta-lactamase Escherichia coli urinary tract infection with no evidence of any obstructive uropathy on CT of abdomen and pelvis, with repeat UA negative. Meropenem can be discontinued on discharge. Continue supportive care. MMODL / IJN: [id number] /
[2020-12-16 07:22] LABS: Glucose,Whole Blood 103 mg/dL (75-99)
[2020-12-16 08:25] LABS: Anisocytosis Slight; Basophils % (A) 1 %; Eosinophils # (A) 0.2 k/uL (0-0.7); Eosinophils % (A) 5 %; HGB 9.7 gm/dL (11.4-16.0); Hypochromasia Marked; Lymphocytes # (A) 1.6 k/uL (1.0-4.8); Lymphocytes % (A) 35 %; MCH 25.1 pg (25.0-35.0); MCHC 31.2 g/dL (31.0-37.0); MCV 80.6 fL (80.0-100.0); Mean Platelet Volume 7.7; Monocytes # (A) 0.3 k/uL (0-1.0); Monocytes % (A) 5 %; Neutrophils # (A) 2.5 k/uL (1.3-7.7); Neutrophils % (A) 54 %; Platelet Count 179 k/uL (150-450); RBC 3.84 m/uL (3.80-5.40); WBC 4.6 k/uL (3.8-10.6)
[2020-12-16 08:40] LABS: ALT <6 U/L (4-34); AST 18 U/L (14-36); African American GFR (CKD) >90 (>60 ml/min/1.73 sqM); Albumin 3.3 g/dL (3.5-5.0); Albumin/Globulin Ratio 1.2; Alkaline Phosphatase 58 U/L (38-126); Anion Gap 7 mmol/L; Blood Urea Nitrogen 16 mg/dL (7-17); Calcium 9.6 mg/dL (8.4-10.2); Carbon Dioxide 31 mmol/L (22-30); Chloride 99 mmol/L (98-107); Globulin 2.7 g/dL; Glucose 82 mg/dL (74-99); Non-African American GFR(CKD) >90 (>60 ml/min/1.73 sqM); Potassium 3.6 mmol/L (3.5-5.1); Sodium 137 mmol/L (137-145); Total Bilirubin 0.4 mg/dL (0.2-1.3)
[2020-12-16] MEDS: levETIRAcetam 500 MG TAB PO SCH ×2 (09:33→22:11)
[2020-12-16] MEDS: LOSARTAN 50 MG TAB PO SCH (09:33)
[2020-12-16] MEDS: NITROGLYCERIN OINT 1 INCH/GM PACKET TOPICAL SCH ×4 (09:33→22:12)
[2020-12-16] MEDS: ASPIRIN 81 MG PO SCH (09:33)
[2020-12-16] MEDS: CITALOPRAM HYDROBROMIDE 20 MG TAB PO SCH (09:33)
[2020-12-16] MEDS: APIXABAN 5 MG TAB PO SCH ×2 (09:34→22:12)
[2020-12-16] MEDS: carvediloL 6.25 MG TAB PO SCH ×2 (09:34→16:20)
[2020-12-16] MEDS: metFORMIN 500 MG TAB PO SCH ×2 (09:34→22:12)
[2020-12-16] MEDS: FERROUS SULFATE 325 MG TAB PO SCH ×2 (09:34→16:21)
[2020-12-16] MEDS: hydrALAZINE HCL 50 MG TAB PO SCH ×3 (09:34→22:12)
[2020-12-16] MEDS: amLODIPine 10 MG TAB PO SCH (09:34)
[2020-12-16] MEDS: MEROPENEM 1 GM in SODIUM CHLORIDE 0.9% 100 ML IVPB SCH ×3 (09:35→23:19)
[2020-12-16] MEDS: DICLOFENAC SODIUM GEL 100 GM TUBE TOPICAL SCH ×4 (09:35→22:13)
[2020-12-16] MEDS: FUROSEMIDE 10 MG/ML 4 ML VIAL IV SCH ×2 (09:35→22:12)
--- NOTE | 2020-12-16 10:13 | XR ---
EXAMINATION TYPE: XR chest 1V DATE OF EXAM: 12/16/2020 COMPARISON: Chest x-ray 12/15/2020 HISTORY: Shortness of breath TECHNIQUE: Single frontal view of the chest is obtained. FINDINGS: Findings are similar to prior exam. Patchy basilar density persists, left hemidiaphragm is partially obscured. There is an overlying loop recorder. Cardiac mediastinal silhouette is stable. P atient is rotated. There is no pneumothorax evident. IMPRESSION: Correlate for congestive heart failure, pneumonia, atelectasis, there are basilar effusi ons.
[2020-12-16 11:42] LABS: Glucose,Whole Blood 103 mg/dL (75-99)
--- NOTE | 2020-12-16 15:30 | PN ---
PROGRESS NOTE DATE OF SERVICE: 12/16/2020 REASON FOR FOLLOWUP: ESBL E coli urinary tract infection. INTERVAL HISTORY: The patient is currently afebrile. The patient is breathing comfortably. The patient denies having any chest pain or shortness of breath or cough. No nausea, no vomiting, no abdominal pain or diarrhea. PHYSICAL EXAMINATION: Blood pressure 127/68 with a pulse of 60, temperature 98.7. She is 97% on 3 L nasal cannula. General description is an elderly female lying in bed in no distress. RESPIRATORY SYSTEM: Unlabored breathing. Clear to auscultation anteriorly. HEART: S1, S2. Regular rate and rhythm. ABDOMEN: Soft. No tenderness. LABS: Hemoglobin is 9.7, white count 4.6, BUN of 16, creatinine 0.63. DIAGNOSTIC IMPRESSION AND PLAN: Patient with ESBL Escherichia coli urinary tract infection, possible mild cystitis that has been adequately treated. Repeat urine is negative. No need for antibiotic on discharge. Continue with supportive care. MMODL / IJN: [id number] /
[2020-12-16 16:54] LABS: Glucose,Whole Blood 164 mg/dL (75-99)
--- NOTE | 2020-12-16 20:42 | P.PN ---
Subjective Progress Note Date: 12/16/20 (714) Principal diagnosis: Acute on chronic congestive heart failure diastolic acute urinary tract infection anemia G.I. bleed Evaluated a 65-year-old female this a.m., resting comfortably in bed. Patient alert the person; patient able to answer your questions limited due to underlying history of cerebrovascular incidents. Patient has significant episodes of fluid overload intermittent diuresis; acute urinary tract infection carbapen has been initiated due to culture and sensitivity. Significant rising hemoglobin after one unit of packed blood red blood cells, continue ferous sulfate 325 mg PO BID.Obtained [id number] today with significant an emia and on Eliquis therapy for paroxysmal atrial fibrillation general surgery has been consulted to evaluate possible gastrointestinal bleeding. Objective - Vital Signs Vital signs: Vital Signs Temp 98.7 F 12/16/20 18:47 Pulse 59 L 12/16/20 18:47 Resp 15 12/16/20 18:47 BP 96/55 12/16/20 18:47 Pulse Ox 96 12/16/20 18:47 Intake & Output 12/16/20 12/16/20 12/17/20 06:59 18:59 06:59 Output Total 900 600 Balance -900 -600 Weight 106 kg Output: Urine 900 600 Other: Voiding Method External Catheter Incontinent # Voids 4 - Constitutional General appearance: Present: cooperative - EENT Eyes: Present: EOMI, PERRLA ENT: Present: normal oropharynx Ears: bilateral: normal - Neck Carotids: bilateral: upstroke normal Thyroid: bilateral: normal size - Respiratory Respiratory: bilateral: diminished (Anterior and posterior lung clifford diminished) - Cardiovascular Details: Normal sinus rhythm Heart rate: 68 Rhythm: regular Heart sounds: normal: S1, S2 - Peripheral edema leg Peripheral Edema: bilateral: 2+ ankle Peripheral Edema: bilateral: 2+ foot Peripheral Edema: bilateral: 2+ - Peripheral pulses radial pulse Peripheral Pulses: bilateral: Normal dorsalis pedis Peripheral Pulses: right: Normal, left: Diminished - Gastrointestinal General gastrointestinal: Present: normal bowel sounds, tenderness Localized gastrointestinal: tender: RUQ - Integumentary Integumentary: Present: pale - Neurologic Neurologic: Present: CNII-XII intact - Musculoskeletal Musculoskeletal: Present: generalized weakness - Psychiatric Psychiatric Comment(s): Alert to person; disoriented to place, time situation - Allied health notes Allied health notes reviewed: nursing - Labs CBC & Chem 7: 12/16/20 06:52 12/16/20 06:52 Labs: Abnormal Lab Results - Last 24 Hours (Table) 12/15/20 12/16/20 12/16/20 Range/Units 20:30 06:52 06:52 Hgb 9.7 L (11.4-16.0) gm/dL Hct 31.0 L (34.0-46.0) % RDW 19.0 H (11.5-15.5) % Carbon Dioxide 31 H (22-30) mmol/L POC Glucose (mg/dL) 148 H (75-99) mg/dL Total Protein 6.0 L (6.3-8.2) g/dL Albumin 3.3 L (3.5-5.0) g/dL Stool Occult Blood (Negative) 12/16/20 12/16/20 12/16/20 Range/Units 07:17 09:58 11:39 Hgb (11.4-16.0) gm/dL Hct (34.0-46.0) % RDW (11.5-15.5) % Carbon Dioxide (22-30) mmol/L POC Glucose (mg/dL) 103 H 103 H (75-99) mg/dL Total Protein (6.3-8.2) g/dL Albumin (3.5-5.0) g/dL Stool Occult Blood Positive H (Negative) 12/16/20 Range/Units 16:52 Hgb (11.4-16.0) gm/dL Hct (34.0-46.0) % RDW (11.5-15.5) % Carbon Dioxide (22-30) mmol/L POC Glucose (mg/dL) 164 H (75-99) mg/dL Total Protein (6.3-8.2) g/dL Albumin (3.5-5.0) g/dL Stool Occult Blood (Negative) - Imaging and Cardiology Chest x-ray: report reviewed Assessment and Plan Assessment: Acute urinary tract infection ESBL acute on chronic diastolic heart failure anemia Possibly to gastrointestinal bleeding possible community acquired pneumonia diabetes mellitus type II [id number] paroxysmal atrial fibrillation history of CVA/TIA left-sided weakness memory impairment hypertension vascular dementia full code Plan: Acute urinary tract infection continue antibiotic thrapy anemia status post blood transfusion hemoglobin 8.1 continue iron supplementation BID Consult general surgery for the evaluation of anemia and positive arcadio-occult acute on chronic diastolic heart failure continue nitro paste/and diuresis diabetes mellitus type II continue sliding scale Continue to monitor hemoglobin and hematocrit continue to monitor vital signs continue medical management Time with Patient: Greater than 30
[2020-12-16] MEDS: traZODone HCL 50 MG TAB PO SCH (22:12)
[2020-12-16] MEDS: ALPRAZolam 0.5 MG TAB PO PRN (22:12)
[2020-12-16] MEDS: ATORVASTATIN 80 MG TAB PO SCH (22:12)
[2020-12-16 22:15] LABS: Glucose,Whole Blood 107 mg/dL (75-99)
--- NOTE | 2020-12-17 03:56 | P.GSCN ---
History of Present Illness Consult date: 12/17/20 History of present illness: Patient seen and evaluated. Patient has been hospitalized for over 1 week. Hemoglobin had dropped approximately 2-3 g while hospitalized. She had received 1 unit of blood transfusion during hospitalization. She has history of anticoagulation. She had positive stool studies for occult blood. She denies any abdominal pain. Hemoglobin is over 9.0. Patient during assessment overall tearful regarding of family member. Patient on exam with generalized anasarca. CT of the abdomen and pelvis independent reviewed without intra-abdominal bleeding or hematoma. Patient offered endoscopy for source of GI bleed. With history of anticoagulant, upper endoscopy was described. Patient refused any surgical intervention including procedures. At this time, no active signs of moderate bleeding as hemoglobin continues to improve. We'll monitor peripherally. Upper and lower endoscopies on hold pending patient's consent. Past Medical History Past Medical History: Atrial Fibrillation, CVA/TIA, Diabetes Mellitus, Hypertension, Pneumonia, Seizure Disorder, Vascular Disorder Additional Past Medical History / Comment(s): Paroxysmal Afib, CVA x3 with L sided paralysis, TIA, NIDDM type II, vascular dementia, sacral ulcer-healing but just reopened slightly, past L thigh ulcer, UTIs, UTI with sepsis, incontinence at times, seizure d/t reaction to antibiotic in 2020 per gian, hyponatremia, hypomagnesemia, possible CHF-gian states they were told yes/no about chf in past, anemia. History of Any Multi-Drug Resistant Organisms: ESBL, MRSA Year Discovered:: 04/08/20 MRSA 12/09/20 ESBL MDRO Source:: MRSA BUTTOCK/ ESBL URINE Past Surgical History: Tubal Ligation Additional Past Surgical History / Comment(s): Arch study, L caratid endartectomy, loop recorder Past Anesthesia/Blood Transfusion Reactions: No Reported Reaction Type of Cardiac Device: Loop Smoking Status: Former smoker - Past Family History Brother(s) Family Medical History: No Reported History Sister(s) Family Medical History: Diabetes Mellitus Additional Family Medical History / Comment(s): RENAL FAILURE, ABCESSES Mother Family Medical History: Vascular Disorder Additional Family Medical History / Comment(s): Brain Aneurism. Father Family Medical History: Diabetes Mellitus Medications and Allergies Home Medications Medication Instructions Recorded Confirmed Type Atorvastatin [Lipitor] 80 mg PO HS 03/22/19 12/08/20 History Losartan Potassium 100 mg PO DAILY 03/22/19 12/08/20 History Citalopram Hydrobromide [CeleXA] 40 mg PO DAILY 07/06/19 12/08/20 History carvediloL [Coreg] 6.25 mg PO BID-W/MEALS 30 Days #60 01/20/20 12/08/20 Rx tab hydrALAZINE HCL [Apresoline] 50 mg PO TID 03/05/20 12/08/20 History Apixaban [Eliquis] 5 mg PO BID tab 03/31/20 12/08/20 Rx amLODIPine [Norvasc] 10 mg PO DAILY 12/08/20 12/08/20 History levETIRAcetam [Keppra] 1,000 mg PO Q12HR 12/08/20 12/08/20 History metFORMIN HCL [Glucophage] 500 mg PO BID 12/08/20 12/08/20 History traZODone HCL 50 mg PO HS 12/08/20 12/08/20 History Allergies Allergy/AdvReac Type Severity Reaction Status Date / Time lorazepam [From Ativan] Allergy Unknown Verified 12/08/20 13:50 Surgical - Exam Vital Signs Temp Pulse Resp BP Pulse Ox 98.4 F 61 22 155/66 85 L 12/08/20 11:59 12/08/20 11:59 12/08/20 11:59 12/08/20 11:59 12/08/20 11:59 Results - Labs 12/16/20 06:52 12/16/20 06:52 Abnormal Lab Results - Last 24 Hours (Table) 12/16/20 12/16/20 12/16/20 Range/Units 06:52 06:52 07:17 Hgb 9.7 L (11.4-16.0) gm/dL Hct 31.0 L (34.0-46.0) % RDW 19.0 H (11.5-15.5) % Carbon Dioxide 31 H (22-30) mmol/L POC Glucose (mg/dL) 103 H (75-99) mg/dL Total Protein 6.0 L (6.3-8.2) g/dL Albumin 3.3 L (3.5-5.0) g/dL Stool Occult Blood (Negative) 12/16/20 12/16/20 12/16/20 Range/Units 09:58 11:39 16:52 Hgb (11.4-16.0) gm/dL Hct (34.0-46.0) % RDW (11.5-15.5) % Carbon Dioxide (22-30) mmol/L POC Glucose (mg/dL) 103 H 164 H (75-99) mg/dL Total Protein (6.3-8.2) g/dL Albumin (3.5-5.0) g/dL Stool Occult Blood Positive H (Negative) 12/16/20 Range/Units 22:12 Hgb (11.4-16.0) gm/dL Hct (34.0-46.0) % RDW (11.5-15.5) % Carbon Dioxide (22-30) mmol/L POC Glucose (mg/dL) 107 H (75-99) mg/dL Total Protein (6.3-8.2) g/dL Albumin (3.5-5.0) g/dL Stool Occult Blood (Negative) Diabetes panel 12/16/20 Range/Units 06:52 Sodium 137 (137-145) mmol/L Potassium 3.6 (3.5-5.1) mmol/L Chloride 99 (98-107) mmol/L Carbon Dioxide 31 H (22-30) mmol/L BUN 16 (7-17) mg/dL Creatinine 0.63 (0.52-1.04) mg/dL Glucose 82 (74-99) mg/dL Calcium 9.6 (8.4-10.2) mg/dL AST 18 (14-36) U/L ALT <6 (4-34) U/L Alkaline Phosphatase 58 (38-126) U/L Total Protein 6.0 L (6.3-8.2) g/dL Albumin 3.3 L (3.5-5.0) g/dL Calcium panel 12/16/20 Range/Units 06:52 Calcium 9.6 (8.4-10.2) mg/dL Albumin 3.3 L (3.5-5.0) g/dL Pituitary panel 12/16/20 Range/Units 06:52 Sodium 137 (137-145) mmol/L Potassium 3.6 (3.5-5.1) mmol/L Chloride 99 (98-107) mmol/L Carbon Dioxide 31 H (22-30) mmol/L BUN 16 (7-17) mg/dL Creatinine 0.63 (0.52-1.04) mg/dL Glucose 82 (74-99) mg/dL Calcium 9.6 (8.4-10.2) mg/dL Adrenal panel 12/16/20 Range/Units 06:52 Sodium 137 (137-145) mmol/L Potassium 3.6 (3.5-5.1) mmol/L Chloride 99 (98-107) mmol/L Carbon Dioxide 31 H (22-30) mmol/L BUN 16 (7-17) mg/dL Creatinine 0.63 (0.52-1.04) mg/dL Glucose 82 (74-99) mg/dL Calcium 9.6 (8.4-10.2) mg/dL Total Bilirubin 0.4 (0.2-1.3) mg/dL AST 18 (14-36) U/L ALT <6 (4-34) U/L Alkaline Phosphatase 58 (38-126) U/L Total Protein 6.0 L (6.3-8.2) g/dL Albumin 3.3 L (3.5-5.0) g/dL
[2020-12-17 07:02] LABS: Anisocytosis Slight; Basophils % (A) 1 %; Eosinophils # (A) 0.2 k/uL (0-0.7); Eosinophils % (A) 4 %; HCT 30.7 % (34.0-46.0); HGB 9.8 gm/dL (11.4-16.0); Hypochromasia Marked; Lymphocytes % (A) 38 %; MCH 25.6 pg (25.0-35.0); MCHC 31.9 g/dL (31.0-37.0); MCV 80.1 fL (80.0-100.0); Mean Platelet Volume 7.8; Microcytosis Slight; Monocytes # (A) 0.3 k/uL (0-1.0); Monocytes % (A) 6 %; Neutrophils # (A) 2.8 k/uL (1.3-7.7); Neutrophils % (A) 51 %; Platelet Count 182 k/uL (150-450); RBC 3.84 m/uL (3.80-5.40); RDW 19.1 % (11.5-15.5); WBC 5.4 k/uL (3.8-10.6)
[2020-12-17 07:04] LABS: Glucose,Whole Blood 85 mg/dL (75-99)
[2020-12-17 07:18] LABS: ALT 6 U/L (4-34); AST 18 U/L (14-36); African American GFR (CKD) >90 (>60 ml/min/1.73 sqM); Albumin 3.2 g/dL (3.5-5.0); Albumin/Globulin Ratio 1.1; Alkaline Phosphatase 60 U/L (38-126); Anion Gap 6 mmol/L; Blood Urea Nitrogen 15 mg/dL (7-17); Calcium 9.4 mg/dL (8.4-10.2); Carbon Dioxide 33 mmol/L (22-30); Chloride 97 mmol/L (98-107); Globulin 2.8 g/dL; Glucose 79 mg/dL (74-99); Magnesium 1.2 mg/dL (1.6-2.3); Non-African American GFR(CKD) >90 (>60 ml/min/1.73 sqM); Potassium 3.7 mmol/L (3.5-5.1); Sodium 136 mmol/L (137-145); Total Bilirubin 0.4 mg/dL (0.2-1.3)
[2020-12-17 07:24] VITALS: TEMP 98.3
--- NOTE | 2020-12-17 07:59 | XR ---
EXAMINATION TYPE: XR chest 1V DATE OF EXAM: 12/17/2020 COMPARISON: Chest x-ray dated 12/16/2020 HISTORY: Shortness of breath TECHNIQUE: Single frontal view of the chest is obtained. FINDINGS: There is not a significant interval change. IMPRESSION: Correlate for edema, pneumonia, there are likely basilar effusions, possible atelectasis
[2020-12-17] MEDS: amLODIPine 10 MG TAB PO SCH (09:05)
[2020-12-17] MEDS: CITALOPRAM HYDROBROMIDE 20 MG TAB PO SCH (09:05)
[2020-12-17] MEDS: FERROUS SULFATE 325 MG TAB PO SCH (09:05)
[2020-12-17] MEDS: hydrALAZINE HCL 50 MG TAB PO SCH (09:05)
[2020-12-17] MEDS: levETIRAcetam 500 MG TAB PO SCH (09:05)
[2020-12-17] MEDS: LOSARTAN 50 MG TAB PO SCH (09:05)
[2020-12-17] MEDS: APIXABAN 5 MG TAB PO SCH (09:05)
[2020-12-17] MEDS: carvediloL 6.25 MG TAB PO SCH (09:05)
[2020-12-17] MEDS: NITROGLYCERIN OINT 1 INCH/GM PACKET TOPICAL SCH (09:06)
[2020-12-17] MEDS: metFORMIN 500 MG TAB PO SCH (09:06)
[2020-12-17] MEDS: ASPIRIN 81 MG PO SCH (09:06)
[2020-12-17] MEDS: FUROSEMIDE 10 MG/ML 4 ML VIAL IV SCH (09:06)
[2020-12-17] MEDS: DICLOFENAC SODIUM GEL 100 GM TUBE TOPICAL SCH (09:18)
[2020-12-17] MEDS: MEROPENEM 1 GM in SODIUM CHLORIDE 0.9% 100 ML IVPB SCH (09:53)
--- NOTE | 2020-12-17 10:07 | P.PN ---
Progress Note - Text Progress Note Date: 12/17/20 Physician clarification In my professional opinion significant findings acute respiratory failure
[2020-12-17 11:37] LABS: Glucose,Whole Blood 94 mg/dL (75-99)
[2020-12-17 13:47] VITALS: BP 132/54; PULSE 57; RESP 16
[2020-12-17] MEDS ORDERED: FUROSEMIDE 20 MG TAB PO SCH (16:00)
--- NOTE | 2020-12-17 18:57 | P.DS ---
Providers Date of admission: 12/08/20 14:14 Expected date of discharge: 12/17/20 Attending physician: Rhys Holley Consults: 12/08/20 14:14 Consult Physician Routine Consulting Provider: [facility] Consult Reason/Comments: acute pulmonary edema Do you want consulting provider notified?: Yes 12/12/20 12:25 Consult Physician Urgent Consulting Provider: Nedra Dutta Consult Reason/Comments: URINE CULTURE GRWOING E-COLI, HISTORY OF ESBL Do you want consulting provider notified?: Yes 12/16/20 15:43 Consult Physician Urgent Consulting Provider: Cami Reed Consult Reason/Comments: positive hemoccult- anemia- required one unit PRBC Do you want consulting provider notified?: Yes Primary care physician: Rhys Holley Hospital Course: 65-year-old female was admitted to the hospital fluid overload, and mild respiratory distress requiring significant oxygen to keep saturations above 94%. Upon hospital stay was found to have acute urinary tract infection treated with antibiotics, possible communion acquired pneumonia treated with broad-spectrum antibiotics, and acute on chronic diastolic heart failure treated with IV diuretics. During hospital stay patients hemoglobin and hematocrit drop significantly requiring one pack unit of red blood cells and initiation of iron supplementation. Cardiology was consulted regarding fluid overload with recommendations and treatment plan IV diuresis. Infectious disease was consulted regarding urinary culture for proper antibiotic therapy. Due to occult positive general surgery was consulted patient declined any procedures for colonoscopy to investigate possible contributing factors to anemia patient hemoglobin was stable upon discharge with vital signs stable upon discharge patient discharge with guarded prognosis. Assessment: Acute urinary tract infection ESBL AND E. coli acute on chronic diastolic heart failure anemia possibly community acquired pneumonia diabetes mellitus type II [id number] paroxysmal atrial fibrillation history of CVA/TIA left-sided weakness memory impairment vascular dementia hypertension hyperlipidemia full code Health Concerns: Vascular dementia with associated memory impairment CVA/TIA with left-sided weakness difficulty with ambulation inability to care for self dependent on family for care of patient Pertinent Studies: Echocardiogram serial chest x-rays CT abdomen and pelvis Procedures: None performed Patient Condition at Discharge: Fair Plan - Discharge Summary Discharge Rx Participant: No New Discharge Prescriptions: New Ferrous Sulfate [Iron (65 MG Elemental)] 325 mg PO BID 30 Days #60 tab Furosemide [Lasix] 20 mg PO BID@0900,1600 #20 tab Continue Atorvastatin [Lipitor] 80 mg PO HS Losartan Potassium 100 mg PO DAILY Citalopram Hydrobromide [CeleXA] 40 mg PO DAILY carvediloL [Coreg] 6.25 mg PO BID-W/MEALS 30 Days #60 tab hydrALAZINE HCL [Apresoline] 50 mg PO TID Apixaban [Eliquis] 5 mg PO BID tab amLODIPine [Norvasc] 10 mg PO DAILY levETIRAcetam [Keppra] 1,000 mg PO Q12HR metFORMIN HCL [Glucophage] 500 mg PO BID traZODone HCL 50 mg PO HS Discharge Medication List Atorvastatin [Lipitor] 80 mg PO HS 03/22/19 [History] Losartan Potassium 100 mg PO DAILY 03/22/19 [History] Citalopram Hydrobromide [CeleXA] 40 mg PO DAILY 07/06/19 [History] carvediloL [Coreg] 6.25 mg PO BID-W/MEALS 30 Days #60 tab 01/20/20 [Rx] hydrALAZINE HCL [Apresoline] 50 mg PO TID 03/05/20 [History] Apixaban [Eliquis] 5 mg PO BID tab 03/31/20 [Rx] amLODIPine [Norvasc] 10 mg PO DAILY 12/08/20 [History] levETIRAcetam [Keppra] 1,000 mg PO Q12HR 12/08/20 [History] metFORMIN HCL [Glucophage] 500 mg PO BID 12/08/20 [History] traZODone HCL 50 mg PO HS 12/08/20 [History] Ferrous Sulfate [Iron (65 MG Elemental)] 325 mg PO BID 30 Days #60 tab 12/17/20 [Rx] Furosemide [Lasix] 20 mg PO BID@0900,1600 #20 tab 12/17/20 [Rx] Follow up Appointment(s)/Referral(s): Rhys Holley MD [Primary Care Provider] - 12/23/20 2:30 pm Asuncion Alicea MD [STAFF PHYSICIAN] - 12/28/20 2:30 pm [facility],Equipment [NON-STAFF] - (*[facility] will deliver a portable oxygen tank to the bedside before discharge. Please call them once home to arrange delivery of the oxygen concentrator.) Patient Instructions/Handouts: Pulmonary Edema (DC) Activity/Diet/Wound Care/Special Instructions: The patient requires home oxygen to manage her chronic CHF and fluid volume overload. Discharge Disposition: HOME WITH HOME HEALTH SERVICES
--- NOTE | 2020-12-18 14:57 | P.PN ---
Progress Note - Text Progress Note Date: 12/17/20 REASON FOR FOLLOWUP: ESBL E coli urinary tract infection. INTERVAL HISTORY: The patient remains to be afebrile. The patient is breathing comfortably. The patient denies chest pain or shortness of breath or cough. No nausea, no vomiting, no abdominal pain or diarrhea. PHYSICAL EXAMINATION: Blood pressure 120/60 with a pulse of 60, temperature 98.7. She is 97% on 3 L nasal cannula. General description is an elderly female lying in bed in no distress. RESPIRATORY SYSTEM: Unlabored breathing. Clear to auscultation anteriorly. HEART: S1, S2. Regular rate and rhythm. ABDOMEN: Soft. No tenderness. LABS: Reviewed DIAGNOSTIC IMPRESSION AND PLAN: Patient with ESBL Escherichia coli urinary tract infection, possible mild cystitis that has been adequately treated. Repeat urine culture has been negative. No need for antibiotic on discharge.
== END 2020-12-17 14:59 | disposition home health service (06) | DRG 291 ==
LOC: EC 11:54 → 3SCARD 14:14 → 4SSUR 12-12 00:07
PROVIDERS: ADMIT Family Medicine; ATTEND Family Medicine
PROC: 30233N1 Transfusion of Nonautologous Red Blood Cells into Peripheral Vein, Percutaneous Approach (ICD-10-PCS; principal; 2020-12-13)
DX: I11.0 Hypertensive heart disease with heart failure (principal); J18.9 Pneumonia, unspecified organism; J96.01 Acute respiratory failure with hypoxia; K92.2 Gastrointestinal hemorrhage, unspecified; I69.354 Hemiplegia and hemiparesis following cerebral infarction affecting left non-dominant side; N39.0 Urinary tract infection, site not specified; Z16.12 Extended spectrum beta lactamase (ESBL) resistance; I50.33 Acute on chronic diastolic (congestive) heart failure; D64.9 Anemia, unspecified; Z79.4 Long term (current) use of insulin; I48.0 Paroxysmal atrial fibrillation; Z79.01 Long term (current) use of anticoagulants; E11.51 Type 2 diabetes mellitus with diabetic peripheral angiopathy without gangrene; F01.50 Vascular dementia, unspecified severity, without behavioral disturbance, psychotic disturbance, mood disturbance, and anxiety; Z74.01 Bed confinement status; E78.5 Hyperlipidemia, unspecified; B96.20 Unspecified Escherichia coli [E. coli] as the cause of diseases classified elsewhere; G40.909 Epilepsy, unspecified, not intractable, without status epilepticus; I27.20 Pulmonary hypertension, unspecified; Z79.82 Long term (current) use of aspirin; Z79.899 Other long term (current) drug therapy; Z87.440 Personal history of urinary (tract) infections
CPT/HCPCS: 36415; 71045; 71046; 74176; 80048; 80053; 80177; 81001; 82272; 82728; 82803; 83540; 83550; 83605; 83735; 83880; 84145; 84484; 85025; 85027; 85379; 85610; 85730; 86738; 86850; 86900; 86901; 86920; 87077; 87086; 87186; 87449; 87635; 93005; 93306; 94760

== ENCOUNTER 2021-04-25 19:23 | Inpatient (IN) | payer MEDICARE, BC ==
[2021-04-25 20:15] LABS: Basophils % (A) 0 %; Eosinophils # (A) 0.1 k/uL (0-0.7); Eosinophils % (A) 2 %; HGB 8.4 gm/dL (11.4-16.0); Hypochromasia Moderate; Lymphocytes # (A) 1.2 k/uL (1.0-4.8); Lymphocytes % (A) 23 %; MCH 25.2 pg (25.0-35.0); MCHC 32.3 g/dL (31.0-37.0); MCV 78.2 fL (80.0-100.0); Mean Platelet Volume 7.8; Monocytes # (A) 0.3 k/uL (0-1.0); Monocytes % (A) 6 %; Neutrophils # (A) 3.5 k/uL (1.3-7.7); Neutrophils % (A) 68 %; Platelet Count 228 k/uL (150-450); Poikilocytosis Slight; RBC 3.33 m/uL (3.80-5.40); RDW 15.3 % (11.5-15.5); WBC 5.2 k/uL (3.8-10.6)
[2021-04-25 20:27] LABS: ALT <6 U/L (4-34); AST 16 U/L (14-36); African American GFR (CKD) >90 (>60 ml/min/1.73 sqM); Albumin 3.2 g/dL (3.5-5.0); Alkaline Phosphatase 53 U/L (38-126); Anion Gap 4 mmol/L; Blood Urea Nitrogen 23 mg/dL (7-17); Calcium 9.2 mg/dL (8.4-10.2); Carbon Dioxide 38 mmol/L (22-30); Chloride 97 mmol/L (98-107); Glucose 105 mg/dL (74-99); Non-African American GFR(CKD) >90 (>60 ml/min/1.73 sqM); Potassium 3.3 mmol/L (3.5-5.1); Sodium 139 mmol/L (137-145); Total Bilirubin 0.6 mg/dL (0.2-1.3)
[2021-04-25 20:32] LABS: INR 1.1 (<1.2); Partial Thromboplastin Time 25.2 sec (22.0-30.0); Prothrombin Time 11.9 sec (9.0-12.0)
--- NOTE | 2021-04-25 20:35 | ED ---
General Adult HPI - General Chief complaint: Shortness of Breath Stated complaint: low oxygen Time Seen by Provider: 04/25/21 19:38 Source: patient Mode of arrival: ambulatory Limitations: no limitations - History of Present Illness Initial comments: 65-year-old female patient presents for evaluation of decreased oxygen saturation. Family member state the patient has been having to wear oxygen since November after a CHF exacerbation. States that she generally wears 5 L on her concentrator and maintained oxygen 94%. States today on her 5 L she was down in the 60s. States he did switch her over to the tanks and increase her to 10 L and she remained low in 80s today presented here for further evaluation. States that she has been more lethargic since waking up from her nap this afternoon. Patient denies any current shortness of breath, chest pain, or any other symptoms. States she feels well. They deny any fever or chills. Patient denies any nausea or vomiting. Denies any diarrhea. Denies any significant cough. - Related Data Home Medications Medication Instructions Recorded Confirmed Atorvastatin [Lipitor] 80 mg PO HS 03/22/19 04/25/21 Losartan Potassium 100 mg PO DAILY 03/22/19 04/25/21 Citalopram Hydrobromide [CeleXA] 40 mg PO DAILY 07/06/19 04/25/21 hydrALAZINE HCL [Apresoline] 50 mg PO TID@0800,1200,2000 03/05/20 04/25/21 amLODIPine [Norvasc] 10 mg PO DAILY 12/08/20 04/25/21 levETIRAcetam [Keppra] 1,000 mg PO Q12HR 12/08/20 04/25/21 metFORMIN HCL [Glucophage] 500 mg PO BID-W/MEALS 12/08/20 04/25/21 ALPRAZolam [Xanax] 0.5 mg PO DAILY 04/25/21 04/25/21 Furosemide [Lasix] 20 mg PO BID 04/25/21 04/25/21 traZODone HCL 100 mg PO HS 04/25/21 04/25/21 Previous Rx's Medication Instructions Recorded carvediloL [Coreg] 6.25 mg PO BID-W/MEALS 30 Days #60 01/20/20 tab Apixaban [Eliquis] 5 mg PO BID tab 03/31/20 Allergies Allergy/AdvReac Type Severity Reaction Status Date / Time lorazepam [From Ativan] Allergy Unknown Verified 04/25/21 23:13 Review of Systems ROS Statement: Those systems with pertinent positive or pertinent negative responses have been documented in the HPI. ROS Other: All systems not noted in ROS Statement are negative. Past Medical History Past Medical History: Atrial Fibrillation, CVA/TIA, Diabetes Mellitus, Hypertension, Pneumonia, Seizure Disorder, Vascular Disorder Additional Past Medical History / Comment(s): Paroxysmal Afib, CVA x3 with L sided paralysis, TIA, NIDDM type II, vascular dementia, sacral ulcer-healing but just reopened slightly, past L thigh ulcer, UTIs, UTI with sepsis, incontinence at times, seizure d/t reaction to antibiotic in 2020 per gian, hyponatremia, hypomagnesemia, possible CHF-gian states they were told yes/no about chf in past, anemia. History of Any Multi-Drug Resistant Organisms: ESBL, MRSA Date of last positivie culture/infection: 04/08/20 MRSA 12/09/20 ESBL MDRO Source:: MRSA BUTTOCK/ ESBL URINE Past Surgical History: Tubal Ligation Additional Past Surgical History / Comment(s): Arch study, L caratid endartectomy, loop recorder Past Anesthesia/Blood Transfusion Reactions: No Reported Reaction Type of Cardiac Device: Loop Past Psychological History: Depression Smoking Status: Former smoker Past Alcohol Use History: None Reported Past Drug Use History: None Reported - Past Family History Brother(s) Family Medical History: No Reported History Sister(s) Family Medical History: Diabetes Mellitus Additional Family Medical History / Comment(s): RENAL FAILURE, ABCESSES Mother Family Medical History: Vascular Disorder Additional Family Medical History / Comment(s): Brain Aneurism. Father Family Medical History: Diabetes Mellitus General Exam Limitations: no limitations General appearance: alert, in no apparent distress, other (Physical well-deve loped, well-nourished adult female patient in no acute distress. Vital signs upon presentation are temperature 97.5F, pulse 63, respirations 20, blood pressure 134/58, pulse ox 96% on 5 L nasal cannula.) ENT exam: Present: normal exam, normal oropharynx, mucous membranes moist Respiratory exam: Present: decreased breath sounds. Absent: respiratory distress, wheezes, rales, rhonchi, stridor Cardiovascular Exam: Present: regular rate, normal rhythm, normal heart sounds. Absent: systolic murmur, diastolic murmur, rubs, gallop, clicks GI/Abdominal exam: Present: soft, normal bowel sounds. Absent: distended, tenderness, guarding, rebound, rigid Extremities exam: Present: normal inspection, full ROM, normal capillary refill, other (No ankle or pedal edema). Absent: tenderness, pedal edema, joint swelling, calf tenderness Neurological exam: Present: alert, oriented X3, CN II-XII intact Psychiatric exam: Present: normal affect, normal mood Skin exam: Present: warm, dry, intact, normal color. Absent: rash Course Vital Signs 04/25/21 04/25/21 04/25/21 19:28 19:32 22:36 Temperature 97.5 F L Pulse Rate 63 63 Respiratory 20 18 18 Rate Blood Pressure 134/58 149/66 O2 Sat by Pulse 96 93 L Oximetry EKG Findings - EKG Comments: EKG Findings:: EKG obtained at 2146 shows sinus bradycardia with a ventricular rate of 59, MT interval 142, QRS duration 96, QT 416, QTC 411. No evidence of ST elevation or depression. Medical Decision Making - Medical Decision Making 65-year-old female patient was brought into the emergency department today for evaluation of low oxygen saturation. Patient has known CHF. Physical examination did reveal diminished lung sounds. No significant swelling to the extremities. She is in no respiratory distress at this time. Patient was placed on 5 L oxygen via nasal cannula did maintain saturation around 94-95% while here. Chest x-ray did show worsening or failure. Labs reviewed and did reveal elevated BNP at 4700. Low potassium. Low hemoglobin at 8.4 which seems chronic for the patient. I did discuss results with the patient and family. We we will admit to the hospital for IV Lasix and further evaluation by cardiology. Did replace potassium orally. Patient and family are agreeable with this plan. Case discussed with my attending Dr. Rosario. - Lab Data Result diagrams: 04/25/21 20:02 04/25/21 20:02 Lab Results 04/25/21 04/25/21 04/25/21 Range/Units 20:02 20:02 20:02 WBC 5.2 (3.8-10.6) k/uL RBC 3.33 L (3.80-5.40) m/uL Hgb 8.4 L (11.4-16.0) gm/dL Hct 26.0 L (34.0-46.0) % MCV 78.2 L (80.0-100.0) fL MCH 25.2 (25.0-35.0) pg MCHC 32.3 (31.0-37.0) g/dL RDW 15.3 (11.5-15.5) % Plt Count 228 (150-450) k/uL MPV 7.8 Neutrophils % 68 % Lymphocytes % 23 % Monocytes % 6 % Eosinophils % 2 % Basophils % 0 % Neutrophils # 3.5 (1.3-7.7) k/uL Lymphocytes # 1.2 (1.0-4.8) k/uL Monocytes # 0.3 (0-1.0) k/uL Eosinophils # 0.1 (0-0.7) k/uL Basophils # 0.0 (0-0.2) k/uL Hypochromasia Moderate Poikilocytosis Slight PT 11.9 (9.0-12.0) sec INR 1.1 (<1.2) APTT 25.2 (22.0-30.0) sec Sodium 139 (137-145) mmol/L Potassium 3.3 L (3.5-5.1) mmol/L Chloride 97 L (98-107) mmol/L Carbon Dioxide 38 H (22-30) mmol/L Anion Gap 4 mmol/L BUN 23 H (7-17) mg/dL Creatinine 0.67 (0.52-1.04) mg/dL Est GFR (CKD-EPI)AfAm >90 (>60 ml/min/1.73 sqM) Est GFR (CKD-EPI)NonAf >90 (>60 ml/min/1.73 sqM) Glucose 105 H (74-99) mg/dL Plasma Lactic Acid Rock (0.7-2.0) mmol/L Calcium 9.2 (8.4-10.2) mg/dL Total Bilirubin 0.6 (0.2-1.3) mg/dL AST 16 (14-36) U/L ALT <6 (4-34) U/L Alkaline Phosphatase 53 (38-126) U/L Troponin I (0.000-0.034) ng/mL NT-Pro-B Natriuret Pep pg/mL Total Protein 6.0 L (6.3-8.2) g/dL Albumin 3.2 L (3.5-5.0) g/dL 04/25/21 04/25/21 04/25/21 Range/Units 20:02 20:02 20:02 WBC (3.8-10.6) k/uL RBC (3.80-5.40) m/uL Hgb (11.4-16.0) gm/dL Hct (34.0-46.0) % MCV (80.0-100.0) fL MCH (25.0-35.0) pg MCHC (31.0-37.0) g/dL RDW (11.5-15.5) % Plt Count (150-450) k/uL MPV Neutrophils % % Lymphocytes % % Monocytes % % Eosinophils % % Basophils % % Neutrophils # (1.3-7.7) k/uL Lymphocytes # (1.0-4.8) k/uL Monocytes # (0-1.0) k/uL Eosinophils # (0-0.7) k/uL Basophils # (0-0.2) k/uL Hypochromasia Poikilocytosis PT (9.0-12.0) sec INR (<1.2) APTT (22.0-30.0) sec Sodium (137-145) mmol/L Potassium (3.5-5.1) mmol/L Chloride (98-107) mmol/L Carbon Dioxide (22-30) mmol/L Anion Gap mmol/L BUN (7-17) mg/dL Creatinine (0.52-1.04) mg/dL Est GFR (CKD-EPI)AfAm (>60 ml/min/1.73 sqM) Est GFR (CKD-EPI)NonAf (>60 ml/min/1.73 sqM) Glucose (74-99) mg/dL Plasma Lactic Acid Rock 0.8 (0.7-2.0) mmol/L Calcium (8.4-10.2) mg/dL Total Bilirubin (0.2-1.3) mg/dL AST (14-36) U/L ALT (4-34) U/L Alkaline Phosphatase (38-126) U/L Troponin I <0.012 (0.000-0.034) ng/mL NT-Pro-B Natriuret Pep 4720 pg/mL Total Protein (6.3-8.2) g/dL Albumin (3.5-5.0) g/dL - Radiology Data Radiology results: report reviewed, image reviewed Two-view x-ray of the chest is obtained. Report was reviewed in its entirety. Impression by Dr. Lacy shows moderately severe congestive heart failure with significant increased pulmonary edema compared to old exam. Disposition Clinical Impression: CHF exacerbation Disposition: ADMITTED IP TO THIS [facility] Condition: Serious Decision to Admit Reason: Admit from EC Decision Date: 04/25/21 Decision Time: 22:12
--- NOTE | 2021-04-25 21:02 | XR ---
EXAMINATION TYPE: XR chest 2V DATE OF EXAM: 04/25/2021 COMPARISON: 12/17/2020 HISTORY: Short of breath TECHNIQUE: 2 views FINDINGS: There is moderate pulmonary edema. There is blunting of the costophrenic angles. Heart is e nlarged. There are chest leads. IMPRESSION: Moderately severe congestive heart failure with significant increased pulmonary edema com pared to old exam.
[2021-04-25] MEDS ORDERED: FUROSEMIDE 10 MG/ML 4 ML VIAL IV STA (21:24)
[2021-04-25] MEDS ORDERED: NALOXONE 0.4 MG/ML 1 ML VIAL IV PRN (22:10)
[2021-04-25] MEDS ORDERED: POTASSIUM CHLORIDE ER 20 MEQ TAB.ER PO STA (22:11)
[2021-04-25] MEDS ORDERED: traZODone HCL 100 MG TAB PO PRN (23:33)
[2021-04-26] MEDS: metFORMIN 500 MG TAB PO SCH ×2 (06:30→17:17)
[2021-04-26] MEDS: carvediloL 6.25 MG TAB PO SCH ×2 (06:30→17:17)
[2021-04-26 06:40] LABS: Glucose,Whole Blood 141 mg/dL (75-99)
[2021-04-26 08:06] LABS: Basophils % (A) 0 %; Eosinophils % (A) 1 %; HCT 25.1 % (34.0-46.0); HGB 7.9 gm/dL (11.4-16.0); Hypochromasia Marked; Lymphocytes # (A) 0.6 k/uL (1.0-4.8); Lymphocytes % (A) 13 %; MCH 25.3 pg (25.0-35.0); MCHC 31.4 g/dL (31.0-37.0); MCV 80.5 fL (80.0-100.0); Mean Platelet Volume 7.6; Monocytes # (A) 0.2 k/uL (0-1.0); Monocytes % (A) 4 %; Neutrophils # (A) 3.5 k/uL (1.3-7.7); Neutrophils % (A) 81 %; Platelet Count 217 k/uL (150-450); Poikilocytosis Slight; RBC 3.12 m/uL (3.80-5.40); RDW 15.2 % (11.5-15.5); WBC 4.3 k/uL (3.8-10.6)
--- NOTE | 2021-04-26 08:19 | P.CRDCN ---
History of Present Illness Consult date: 04/26/21 History of present illness: HISTORY OF PRESENT ILLNESS: This is a 65-year-old female with a past medical history significant for paroxysmal atrial fibrillation on Eliquis, hypertension, hyperlipidemia, diabetes mellitus, previous carotid enterectomy, congestive heart failure, home O2 use, CVA with left-sided paralysis, loop recorder, and dementia. Patient follows in the office with Dr. Alicea. We have been asked to see the patient in consultation for congestive heart failure. Patient examined at the bedside. Patient is awake and alert. However patient is a poor historian and unable to provide any HPI. Apparently she was brought to the hospital for decreased oxygen saturations at home. Patient is on home oxygen and her family reported having to turn up her oxygen. Patient was found to be in congestive heart failure upon presentation to the hospital. She was started on Lasix 40 mg every 12 hours. At the time of examination, the patient denies shortness of breath. She denies chest pain or pressure. She denies cough or congestion. Denies dizziness or lightheadedness. Denies palpitations. Blood pressure 117/68. Telemetry reveals sinus mechanism with a heart rate in the 60s. She is on 11 L nasal cannula with oxygen saturations around 90%. EKG reveals sinus bradycardia Chest xray moderately severe congestive heart failure with significantly increased pulmonary edema compared to old exam Laboratory data: WBC 4.3. Hemoglobin 7.9. Platelet count 217. Sodium 139. Potassium 3.3. BUN 23. Creatinine 0.67. BNP 4720. Troponin negative x 1. Current home cardiac medications include hydralazine 50 mg 3 times a day, L ipitor 80 mg daily, carvedilol 6.25 mg twice a day, Lasix 20 mg twice a day, Eliquis 5 mg twice a day, Norvasc 10 g daily, losartan 100 mg daily Most recent echocardiogram obtained in December 2020 revealing ejection fraction 55-60%. Mild aortic stenosis. Mild mitral regurgitation. Mild tricuspid re gurgitation. Mild pulmonary hypertension. REVIEW OF SYSTEMS: Unable to obtain thorough review of systems PHYSICAL EXAM: VITAL SIGNS: Reviewed. GENERAL: Well-developed in no acute distress. HEENT: Head is normocephalic. Pupils are equal, round. Sclerae anicteric. Mucous membranes of the mouth are moist. Neck supple. No JVD or thyromegaly LUNGS: Respirations even and unlabored. Lungs diminished anteriorly. Unable to listen to lung clifford posteriorly as patient is unable to sit up or roll to the side at time of examination HEART: Regular rate and rhythm. S1 and S2 heard. Systolic murmur noted. ABDOMEN: Soft. Nondistended. Nontender. EXTREMITIES: Normal range of motion. No clubbing or cyanosis. Peripheral pulses intact. No lower extremity edema NEUROLOGIC: Awake and alert. ASSESSMENT: Acute on chronic hypoxic respiratory failure, on home oxygen Acute exacerbation of diastolic congestive heart failure, ejection fraction 55- 60% Paroxysmal atrial fibrillation on intake regulation with Eliquis Hypertension Hyperlipidemia Diabetes mellitus History of carotid endarterectomy History of CVA with left-sided ptosis History of loop recorder insertion Dementia PLAN: No need to repeat echocardiogram as this was performed in December 2020 Resume home cardiac medications Continue anticoagulation with Eliquis Continue IV Lasix Monitor kidney function Daily weights Accurate I&O Further recommendations pending patient's course Nurse practitioner note has been reviewed by physician. Signing provider agrees with the documented findings, assessment, and plan of care. Past Medical History Past Medical History: Atrial Fibrillation, CVA/TIA, Diabetes Mellitus, Hypertension, Pneumonia, Seizure Disorder, Vascular Disorder Additional Past Medical History / Comment(s): Paroxysmal Afib, CVA x3 with L sided paralysis, TIA, NIDDM type II, vascular dementia, sacral ulcer-healing but just reopened slightly, past L thigh ulcer, UTIs, UTI with sepsis, incontinence at times, seizure d/t reaction to antibiotic in 2019 per gian, hyponatremia, hypomagnesemia, possible CHF-gian states they were told yes/no about chf in past, anemia. History of Any Multi-Drug Resistant Organisms: ESBL, MRSA Date of last positivie culture/infection: 04/08/20 MRSA 12/09/20 ESBL MDRO Source:: MRSA BUTTOCK/ ESBL URINE Past Surgical History: Tubal Ligation Additional Past Surgical History / Comment(s): Arch study, L caratid endartectomy, loop recorder Past Anesthesia/Blood Transfusion Reactions: No Reported Reaction Type of Cardiac Device: Loop Past Psychological History: Depression Smoking Status: Former smoker Past Alcohol Use History: None Reported Past Drug Use History: None Reported - Past Family History Brother(s) Family Medical History: No Reported History Sister(s) Family Medical History: Diabetes Mellitus Additional Family Medical History / Comment(s): RENAL FAILURE, ABCESSES Mother Family Medical History: Vascular Disorder Additional Family Medical History / Comment(s): Brain Aneurism. Father Family Medical History: Diabetes Mellitus Medications and Allergies Home Medications Medication Instructions Recorded Confirmed Type Atorvastatin [Lipitor] 80 mg PO HS 03/22/19 04/25/21 History Losartan Potassium 100 mg PO DAILY 03/22/19 04/25/21 History Citalopram Hydrobromide [CeleXA] 40 mg PO DAILY 07/06/19 04/25/21 History carvediloL [Coreg] 6.25 mg PO BID-W/MEALS 30 Days #60 01/20/20 04/25/21 Rx tab hydrALAZINE HCL [Apresoline] 50 mg PO TID@0800,1200,2000 03/05/20 04/25/21 Histo ry Apixaban [Eliquis] 5 mg PO BID tab 03/31/20 04/25/21 Rx amLODIPine [Norvasc] 10 mg PO DAILY 12/08/20 04/25/21 History levETIRAcetam [Keppra] 1,000 mg PO Q12HR 12/08/20 04/25/21 History metFORMIN HCL [Glucophage] 500 mg PO BID-W/MEALS 12/08/20 04/25/21 History ALPRAZolam [Xanax] 0.5 mg PO DAILY 04/25/21 04/25/21 History Furosemide [Lasix] 20 mg PO BID 04/25/21 04/25/21 History traZODone HCL 100 mg PO HS 04/25/21 04/25/21 History Allergies Allergy/AdvReac Type Severity Reaction Status Date / Time lorazepam [From Ativan] Allergy Unknown Verified 04/25/21 23:13 Physical Exam Vitals: Vital Signs Temp Pulse Pulse Resp BP BP Pulse Ox 04/26/21 04:00 97.8 F 80 18 134/79 92 L 04/25/21 23:04 98.0 F 78 18 136/62 94 L 04/25/21 22:36 63 18 149/66 93 L 04/25/21 19:32 18 04/25/21 19:28 97.5 F L 63 20 134/58 96 Intake and Output 04/25/21 04/26/21 04/26/21 22:59 06:59 14:59 Intake Total 0 Balance 0 Intake: Oral 0 Other: Weight 113.398 kg 97.5 kg Results 04/26/21 07:33 04/25/21 20:02 Cardiac Enzymes 04/25/21 04/25/21 Range/Units 20:02 20:02 AST 16 (14-36) U/L Troponin I <0.012 (0.000-0.034) ng/mL Coagulation 04/25/21 Range/Units 20:02 PT 11.9 (9.0-12.0) sec APTT 25.2 (22.0-30.0) sec CBC 04/25/21 04/26/21 Range/Units 20:02 07:33 WBC 5.2 4.3 (3.8-10.6) k/uL RBC 3.33 L 3.12 L (3.80-5.40) m/uL Hgb 8.4 L 7.9 L (11.4-16.0) gm/dL Hct 26.0 L 25.1 L (34.0-46.0) % Plt Count 228 217 (150-450) k/uL Comprehensive Metabolic Panel 04/25/21 Range/Units 20:02 Sodium 139 (137-145) mmol/L Potassium 3.3 L (3.5-5.1) mmol/L Chloride 97 L (98-107) mmol/L Carbon Dioxide 38 H (22-30) mmol/L BUN 23 H (7-17) mg/dL Creatinine 0.67 (0.52-1.04) mg/dL Glucose 105 H (74-99) mg/dL Calcium 9.2 (8.4-10.2) mg/dL AST 16 (14-36) U/L ALT <6 (4-34) U/L Alkaline Phosphatase 53 (38-126) U/L Total Protein 6.0 L (6.3-8.2) g/dL Albumin 3.2 L (3.5-5.0) g/dL Current Medications Generic Name Dose Route Start Last Admin Trade Name Freq PRN Reason Stop Dose Admin Amlodipine Besylate 10 mg 04/26/21 09:00 Amlodipine 10 Mg Tab PO DAILY [facility] Apixaban 5 mg 04/26/21 09:00 Apixaban 5 Mg Tab PO BID [facility] Protocol Atorvastatin Calcium 80 mg 04/26/21 21:00 Atorvastatin 80 Mg Tab PO HS [facility] Carvedilol 6.25 mg 04/26/21 07:30 04/26/21 06:30 Carvedilol 6.25 Mg Tab PO 6.25 mg BID-W/MEALS [facility] Administration Citalopram Hydrobromide 40 mg 04/26/21 09:00 Citalopram Hydrobromide 20 Mg Tab PO DAILY [facility] Famotidine 20 mg 04/26/21 09:00 Famotidine 20 Mg/2 Ml Vial IV Q12HR [facility] Furosemide 40 mg 04/26/21 09:00 Furosemide 10 Mg/Ml 4 Ml Vial IV Q12HR [facility] Hydralazine HCl 50 mg 04/26/21 08:00 Hydralazine Hcl 50 Mg Tab PO TID@0800,1200,2000 [facility] Levetiracetam 1,000 mg 04/26/21 09:00 Levetiracetam 500 Mg Tab PO Q12HR [facility] Losartan Potassium 100 mg 04/26/21 09:00 Losartan 50 Mg Tab PO DAILY [facility] Metformin HCl 500 mg 04/26/21 07:30 04/26/21 06:30 Metformin 500 Mg Tab PO 500 mg BID-W/MEALS [facility] Administration Naloxone HCl 0.2 mg 04/25/21 22:10 Naloxone 0.4 Mg/Ml 1 Ml Vial IV Q2M PRN Opioid Reversal Trazodone HCl 100 mg 04/25/21 23:33 Trazodone Hcl 100 Mg Tab PO HS PRN Insomnia Intake and Output 04/25/21 04/26/21 04/26/21 22:59 06:59 14:59 Intake Total 0 Balance 0 Intake: Oral 0 Other: Weight 113.398 kg 97.5 kg 04/26/21 07:33 04/25/21 20:02
[2021-04-26 08:21] LABS: African American GFR (CKD) >90 (>60 ml/min/1.73 sqM); Anion Gap 8 mmol/L; Blood Urea Nitrogen 25 mg/dL (7-17); Calcium 8.9 mg/dL (8.4-10.2); Carbon Dioxide 34 mmol/L (22-30); Chloride 96 mmol/L (98-107); Glucose 137 mg/dL (74-99); Magnesium 1.2 mg/dL (1.6-2.3); Non-African American GFR(CKD) 90 (>60 ml/min/1.73 sqM); Potassium 3.8 mmol/L (3.5-5.1); Sodium 138 mmol/L (137-145)
[2021-04-26] MEDS: FUROSEMIDE 10 MG/ML 4 ML VIAL IV SCH ×2 (08:49→20:17)
[2021-04-26] MEDS: hydrALAZINE HCL 50 MG TAB PO SCH ×3 (08:50→21:42)
[2021-04-26] MEDS: CITALOPRAM HYDROBROMIDE 20 MG TAB PO SCH (08:50)
[2021-04-26] MEDS: APIXABAN 5 MG TAB PO SCH ×2 (08:50→20:16)
[2021-04-26] MEDS: amLODIPine 10 MG TAB PO SCH (08:50)
[2021-04-26] MEDS: levETIRAcetam 500 MG TAB PO SCH ×2 (08:50→20:16)
[2021-04-26] MEDS: LOSARTAN 50 MG TAB PO SCH (08:50)
[2021-04-26] MEDS ORDERED: FAMOTIDINE 20 MG/2 ML VIAL IV SCH (09:00)
[2021-04-26 11:53] LABS: Glucose,Whole Blood 158 mg/dL (75-99)
[2021-04-26] MEDS ORDERED: Magnesium Replacement Protocol 1 EACH MISC MISCELLANE PRN (12:34)
--- NOTE | 2021-04-26 13:15 | P.HPIM ---
History of Present Illness This is a pleasant 65 years old female with past medical history of upper tension, diabetes mellitus, atrial fibrillation, CVA, seizure disorder, left- sided hemiparesis, vascular dementia recurrent UTI. Patient was brought by family and daughter to emergency room because she was hypoxic saturating 89% on 10 L oxygen. Usually she has chronic hypoxia on 5 L oxygen per minute at home. Patient can of poor historian and information was provided by the patient and daughter at bedside. And developed hypoxia and shortness of breath of one-day duration so she brought her to the hospital. She has history of stroke and left side hemiparesis. Also recently patient diet change to soft diet. Patient complaining of from cough with no significant phlegm. No chest pain. No abdominal pain or diarrhea. No change in frequency. She is little more drowsy than usual. But she answers most of the questions appropriately, and sometimes she keep quiet and just does not answer the question Currently she is saturating 92% on 9 L oxygen via nasal cannula. Patient is afebrile. CBC, BMP and liver enzymes are unremarkable. Negative less than 0.012. He is only mildly elevated at 4720 magnesium is low at 1.2 which is been replaced Chest x-ray showing moderately severe congestive heart failure with significant increased pulmonary edema compared to old exam. EKG showing sinus bradycardia at 59 with T-wave inversion on lateral limits. QTC is 411 Patient currently is on Lasix 60 mg twice daily Echocardiogram on 12/2020 showed ejection fraction of 55-60%. No significant lower disease Review of Systems CONSTITUTIONAL: No fever, no malaise, no fatigue. HEENT: No recent visual problems or hearing problems. Denied any sore throat. CARDIOVASCULAR: No orthopnea, PND, no palpitations, no syncope. PULMONARY: No small tenderness, no hemoptysis. GASTROINTESTINAL: No diarrhea, no nausea, no vomiting, no abdominal pain. Normoactive bowel sounds. NEUROLOGICAL: No headaches, no weakness, no numbness. HEMATOLOGICAL: Denies any bleeding or petechiae. GENITOURINARY: Denies any burning micturition, frequency, or urgency. MUSCULOSKELETAL/RHEUMATOLOGICAL: Denies any joint pain, swelling, or any muscle pain. ENDOCRINE: Denies any polyuria or polydipsia. Past Medical History Past Medical History: Atrial Fibrillation, CVA/TIA, Diabetes Mellitus, Hyper tension, Pneumonia, Seizure Disorder, Vascular Disorder Additional Past Medical History / Comment(s): Paroxysmal Afib, CVA x3 with L sided paralysis, TIA, NIDDM type II, vascular dementia, sacral ulcer-healing but just reopened slightly, past L thigh ulcer, UTIs, UTI with sepsis, incontinence at times, seizure d/t reaction to antibiotic in 2020 per gian, hyponatremia, hypomagnesemia, possible CHF-gian states they were told yes/no about chf in past, anemia. History of Any Multi-Drug Resistant Organisms: ESBL, MRSA Date of last positivie culture/infection: 04/08/20 MRSA 12/09/20 ESBL MDRO Source:: MRSA BUTTOCK/ ESBL URINE Past Surgical History: Tubal Ligation Additional Past Surgical History / Comment(s): Arch study, L caratid endartectomy, loop recorder Past Anesthesia/Blood Transfusion Reactions: No Reported Reaction Type of Cardiac Device: Loop Past Psychological History: Depression Smoking Status: Former smoker Past Alcohol Use History: None Reported Past Drug Use History: None Reported - Past Family History Brother(s) Family Medical History: No Reported History Sister(s) Family Medical History: Diabetes Mellitus Additional Family Medical History / Comment(s): RENAL FAILURE, ABCESSES Mother Family Medical History: Vascular Disorder Additional Family Medical History / Comment(s): Brain Aneurism. Father Family Medical History: Diabetes Mellitus Medications and Allergies Home Medications Medication Instructions Recorded Confirmed Type Atorvastatin [Lipitor] 80 mg PO HS 03/22/19 04/25/21 History Losartan Potassium 100 mg PO DAILY 03/22/19 04/25/21 History Citalopram Hydrobromide [CeleXA] 40 mg PO DAILY 07/06/19 04/25/21 History carvediloL [Coreg] 6.25 mg PO BID-W/MEALS 30 Days #60 01/20/20 04/25/21 Rx tab hydrALAZINE HCL [Apresoline] 50 mg PO TID@0800,1200,2000 03/05/20 04/25/21 History Apixaban [Eliquis] 5 mg PO BID tab 03/31/20 04/25/21 Rx amLODIPine [Norvasc] 10 mg PO DAILY 12/08/20 04/25/21 History levETIRAcetam [Keppra] 1,000 mg PO Q12HR 12/08/20 04/25/21 History metFORMIN HCL [Glucophage] 500 mg PO BID-W/MEALS 12/08/20 04/25/21 History ALPRAZolam [Xanax] 0.5 mg PO DAILY 04/25/21 04/25/21 History Furosemide [Lasix] 20 mg PO BID 04/25/21 04/25/21 History traZODone HCL 100 mg PO HS 04/25/21 04/25/21 History Allergies Allergy/AdvReac Type Severity Reaction Status Date / Time lorazepam [From Ativan] Allergy Unknown Verified 04/25/21 23:13 Physical Exam Vitals: Vital Signs Temp Pulse Pulse Resp BP BP Pulse Ox 04/26/21 12:00 98.5 F 63 12 131/61 92 L 04/26/21 08:55 8 L 04/26/21 08:00 99.2 F 64 10 L 117/68 89 L 04/26/21 04:00 97.8 F 80 18 134/79 92 L 04/25/21 23:04 98.0 F 78 18 136/62 94 L 04/25/21 22:36 63 18 149/66 93 L 04/25/21 19:32 18 04/25/21 19:28 97.5 F L 63 20 134/58 96 Intake and Output 04/25/21 04/26/21 04/26/21 22:59 06:59 14:59 Intake Total 0 Balance 0 Intake: Oral 0 Other: Weight 113.398 kg 97.5 kg GENERAL: The patient is alert and oriented x3, not in any acute distress. Well developed, well nourished. HEENT: Pupils are round and equally reacting to light. EOMI. No scleral icterus. No conjunctival pallor. Normocephalic, atraumatic. No pharyngeal erythema. No thyromegaly. CARDIOVASCULAR: S1 and S2 present. No murmurs, rubs, or gallops. -PULMONARY: Chest is clear to auscultation, no wheezing Bilateral basal crepitation ABDOMEN: Soft, nontender, nondistended, normoactive bowel sounds. No palpable organomegaly. MUSCULOSKELETAL: No joint swelling or deformity. EXTREMITIES: No cyanosis, clubbing, or pedal edema. NEUROLOGICAL: Gross neurological examination did not reveal any focal deficits. SKIN: No rashes. No petechiae Results CBC & Chem 7: 04/26/21 07:33 04/26/21 07:33 Labs: Abnormal Lab Results - Last 24 Hours (Table) 04/25/21 04/25/21 04/26/21 Range/Units 20:02 20:02 06:20 RBC 3.33 L (3.80-5.40) m/uL Hgb 8.4 L (11.4-16.0) gm/dL Hct 26.0 L (34.0-46.0) % MCV 78.2 L (80.0-100.0) fL Lymphocytes # (1.0-4.8) k/uL Potassium 3.3 L (3.5-5.1) mmol/L Chloride 97 L (98-107) mmol/L Carbon Dioxide 38 H (22-30) mmol/L BUN 23 H (7-17) mg/dL Glucose 105 H (74-99) mg/dL POC Glucose (mg/dL) 141 H (75-99) mg/dL Magnesium (1.6-2.3) mg/dL Total Protein 6.0 L (6.3-8.2) g/dL Albumin 3.2 L (3.5-5.0) g/dL 04/26/21 04/26/21 04/26/21 Range/Units 07:33 07:33 11:49 RBC 3.12 L (3.80-5.40) m/uL Hgb 7.9 L (11.4-16.0) gm/dL Hct 25.1 L (34.0-46.0) % MCV (80.0-100.0) fL Lymphocytes # 0.6 L (1.0-4.8) k/uL Potassium (3.5-5.1) mmol/L Chloride 96 L (98-107) mmol/L Carbon Dioxide 34 H (22-30) mmol/L BUN 25 H (7-17) mg/dL Glucose 137 H (74-99) mg/dL POC Glucose (mg/dL) 158 H (75-99) mg/dL Magnesium 1.2 L (1.6-2.3) mg/dL Total Protein (6.3-8.2) g/dL Albumin (3.5-5.0) g/dL Assessment and Plan Assessment: Acute on chronic diastolic CHF with ejection fraction of 60-65% Acute hypoxic respiratory failure secondary to above the top of chronic respiratory failure Hypertension Diabetes mellitus Paroxysmal atrial fibrillation, on Eliquis Area of CVA 3 History of seizure disorder History of recurrent UTI Plan: This is a pleasant 65 years old female is with CHF exacerbation. Continue with Lasix intravenously. Monitor creatinine and electrolytes. Monitor input and output area to place patient on fluid restriction Training Officer Evaluated the patient Consult pulmonary service. Check for swallow evaluation Check procalcitonin Labs and medication were reviewed.. Continue same treatment. Continue with symptomatic treatment. Resume home medication. Monitor lytes and vitals. DVT and GI prophylaxis. Further recommendationsas per clinical course of the patient DVT prophylaxis: Eliquis GI Prophylaxis: Pepcid PT/OT: Pending Prognosis is guarded
[2021-04-26 17:16] LABS: Glucose,Whole Blood 115 mg/dL (75-99)
[2021-04-26] MEDS: FAMOTIDINE 20 MG TAB PO SCH (20:18)
[2021-04-26 21:00] LABS: Glucose,Whole Blood 123 mg/dL (75-99)
[2021-04-26] MEDS ORDERED: ATORVASTATIN 80 MG TAB PO SCH (21:00)
[2021-04-27 02:52] LABS: Basophils % (A) 0 %; Eosinophils # (A) 0.1 k/uL (0-0.7); Eosinophils % (A) 1 %; HCT 29.1 % (34.0-46.0); HGB 8.6 gm/dL (11.4-16.0); Hypochromasia Marked; Lymphocytes # (A) 1.6 k/uL (1.0-4.8); Lymphocytes % (A) 19 %; MCH 24.6 pg (25.0-35.0); MCHC 29.8 g/dL (31.0-37.0); MCV 82.6 fL (80.0-100.0); Mean Platelet Volume 7.8; Monocytes # (A) 0.3 k/uL (0-1.0); Monocytes % (A) 4 %; Neutrophils # (A) 6.4 k/uL (1.3-7.7); Neutrophils % (A) 75 %; Platelet Count 308 k/uL (150-450); Poikilocytosis Slight; RBC 3.52 m/uL (3.80-5.40); RDW 15.6 % (11.5-15.5); WBC 8.6 k/uL (3.8-10.6)
[2021-04-27 03:05] LABS: Calcium 9.4 mg/dL (8.4-10.2); Magnesium 1.3 mg/dL (1.6-2.3); Potassium 3.8 mmol/L (3.5-5.1)
[2021-04-27] MEDS ORDERED: Magnesium Replacement Protocol 1 EACH MISC MISCELLANE PRN (03:23)
[2021-04-27] MEDS: MAGNESIUM SULFATE-D5W PMX 1 GM in DEXTROSE/WATER 1 100ML.BAG IVPB SCH ×5 (03:51→16:42)
[2021-04-27] MEDS: metFORMIN 500 MG TAB PO SCH (06:19)
[2021-04-27] MEDS: carvediloL 6.25 MG TAB PO SCH (06:19)
[2021-04-27] MEDS: FUROSEMIDE 10 MG/ML 4 ML VIAL IV SCH ×2 (08:59→17:59)
[2021-04-27] MEDS: CITALOPRAM HYDROBROMIDE 20 MG TAB PO SCH (09:07)
[2021-04-27] MEDS: LOSARTAN 50 MG TAB PO SCH (09:08)
[2021-04-27] MEDS: levETIRAcetam 500 MG TAB PO SCH (09:08)
[2021-04-27] MEDS: hydrALAZINE HCL 50 MG TAB PO SCH ×2 (09:08→11:13)
[2021-04-27] MEDS: FAMOTIDINE 20 MG TAB PO SCH (09:08)
[2021-04-27] MEDS: amLODIPine 10 MG TAB PO SCH (09:08)
[2021-04-27] MEDS: APIXABAN 5 MG TAB PO SCH (09:08)
--- NOTE | 2021-04-27 11:10 | P.PN ---
Subjective Progress Note Date: 04/27/21 HISTORY OF PRESENT ILLNESS: This is a 65-year-old female with a past medical history significant for paroxysmal atrial fibrillation on Eliquis, hypertension, hyperlipidemia, diabetes mellitus, previous carotid enterectomy, congestive heart failure, home O2 use, CVA with left-sided paralysis, loop recorder, and dementia. Patient follows in the office with Dr. Alicea. We have been asked to see the patient in consultation for congestive heart failure. Patient examined at the bedside. Patient is awake and alert. However patient is a poor historian and unable to provide any HPI. Apparently she was brought to the hospital for decreased oxygen saturations at home. Patient is on home oxygen and her family reported having to turn up her oxygen. Patient was found to be in congestive heart failure upon presentation to the hospital. She was started on Lasix 40 mg every 12 hours. At the time of examination, the patient denies shortness of breath. She denies chest pain or pressure. She denies cough or congestion. Denies dizziness or lightheadedness. Denies palpitations. Blood pressure 117/68. Telemetry reveals sinus mechanism with a heart rate in the 60s. She is on 11 L nasal cannula with oxygen saturations around 90%. EKG reveals sinus bradycardia Chest xray moderately severe congestive heart failure with significantly increased pulmonary edema compared to old exam Laboratory data: WBC 4.3. Hemoglobin 7.9. Platelet count 217. Sodium 139. Potassium 3.3. BUN 23. Creatinine 0.67. BNP 4720. Troponin negative x 1. Current home cardiac medications include hydralazine 50 mg 3 times a day, Lipitor 80 mg daily, carvedilol 6.25 mg twice a day, Lasix 20 mg twice a day, Eliquis 5 mg twice a day, Norvasc 10 g daily, losartan 100 mg daily Most recent echocardiogram obtained in December 2020 revealing ejection fraction 55-60%. Mild aortic stenosis. Mild mitral regurgitation. Mild tricuspid regurgitation. Mild pulmonary hypertension. 04/27/2021 Patient examined this morning at the bedside. Patient is lethargic and unable to answer questions at the time of examination. She remains on nasal cannula with oxygen saturations greater than 92%. She remains on IV Lasix. BUN 25. Creatinine 0.80. Magnesium 1.3. PHYSICAL EXAM: VITAL SIGNS: Reviewed. GENERAL: Well-developed in no acute distress. HEENT: Head is normocephalic. Pupils are equal, round. Sclerae anicteric. Mucous membranes of the mouth are moist. Neck supple. No JVD or thyromegaly LUNGS: Respirations even and unlabored. Lungs diminished anteriorly. Unable to listen to lung clifford posteriorly as patient is unable to sit up or roll to the side at time of examination HEART: Regular rate and rhythm. S1 and S2 heard. Systolic murmur noted. ABDOMEN: Soft. Nondistended. Nontender. EXTREMITIES: Normal range of motion. No clubbing or cyanosis. Peripheral pulses intact. No lower extremity edema ASSESSMENT: Acute on chronic hypoxic respiratory failure, on home oxygen Acute exacerbation of diastolic congestive heart failure, ejection fraction 55- 60% Paroxysmal atrial fibrillation on anticoagulation with Eliquis Hypertension Hyperlipidemia Diabetes mellitus History of carotid endarterectomy History of CVA with left-sided ptosis History of loop recorder insertion Dementia Hypomagnesemia PLAN: No need to repeat echocardiogram as this was performed in December 2020 Resume home cardiac medications Continue anticoagulation with Eliquis Continue IV Lasix. Possible transition to oral dosing tomorrow. Replace magnesium Monitor kidney function Daily weights Accurate I&O Further recommendations pending patient's course Nurse practitioner note has been reviewed by physician. Signing provider agrees with the documented findings, assessment, and plan of care. Objective - Vital Signs Vital signs: Vital Signs Temp 98.2 F 04/27/21 08:00 Pulse 60 04/27/21 08:00 Resp 16 04/27/21 08:00 BP 157/67 04/27/21 08:00 Pulse Ox 94 L 04/27/21 08:00 Intake & Output 04/26/21 04/27/21 04/27/21 18:59 06:59 18:59 Intake Total 0 Output Total 200 Balance 0 -200 Weight 97 kg Intake: Oral 0 Output: Urine 200 Other: Voiding Method External Catheter External Catheter - Labs CBC & Chem 7: 04/27/21 02:22 04/27/21 02:22 Labs: Abnormal Lab Results - Last 24 Hours (Table) 04/26/21 04/26/21 04/26/21 Range/Units 11:49 17:10 20:55 RBC (3.80-5.40) m/uL Hgb (11.4-16.0) gm/dL Hct (34.0-46.0) % MCH (25.0-35.0) pg MCHC (31.0-37.0) g/dL RDW (11.5-15.5) % Chloride (98-107) mmol/L Carbon Dioxide (22-30) mmol/L BUN (7-17) mg/dL Glucose (74-99) mg/dL POC Glucose (mg/dL) 158 H 115 H 123 H (75-99) mg/dL Magnesium (1.6-2.3) mg/dL 04/27/21 04/27/21 Range/Units 02:22 02:22 RBC 3.52 L (3.80-5.40) m/uL Hgb 8.6 L (11.4-16.0) gm/dL Hct 29.1 L (34.0-46.0) % MCH 24.6 L (25.0-35.0) pg MCHC 29.8 L (31.0-37.0) g/dL RDW 15.6 H (11.5-15.5) % Chloride 97 L (98-107) mmol/L Carbon Dioxide 32 H (22-30) mmol/L BUN 25 H (7-17) mg/dL Glucose 142 H (74-99) mg/dL POC Glucose (mg/dL) (75-99) mg/dL Magnesium 1.3 L (1.6-2.3) mg/dL
[2021-04-27 11:58] LABS: Glucose,Whole Blood 118 mg/dL (75-99)
[2021-04-27] MEDS ORDERED: diphenhydrAMINE 50 MG/ML 1 ML VIAL IVP PRN (12:24)
[2021-04-27] MEDS: INSULIN ASPART (NovoLOG) 100 UNIT/ML VIAL SQ SCH ×3 (12:50→22:46)
--- NOTE | 2021-04-27 13:45 | P.PN ---
Subjective This is a pleasant 65 years old female with past medical history of upper tension, diabetes mellitus, atrial fibrillation, CVA, seizure disorder, left- sided hemiparesis, vascular dementia recurrent UTI. Patient was brought by family and daughter to emergency room because she was hypoxic saturating 89% on 10 L oxygen. Usually she has chronic hypoxia on 5 L oxygen per minute at home. Patient can of poor historian and information was provided by the patient and daughter at bedside. And developed hypoxia and shortness of breath of one-day duration so she brought her to the hospital. She has history of stroke and left side hemiparesis. Also recently patient diet change to soft diet. Patient complaining of from cough with no significant phlegm. No chest pain. No abdominal pain or diarrhea. No change in frequency. She is little more drowsy than usual. But she answers most of the questions appropriately, and sometimes she keep quiet and just does not answer the question Currently she is saturating 92% on 9 L oxygen via nasal cannula. Patient is afebrile. CBC, BMP and liver enzymes are unremarkable. Negative less than 0.012. He is only mildly elevated at 4720 magnesium is low at 1.2 which is been replaced Chest x-ray showing moderately severe congestive heart failure with significant increased pulmonary edema compared to old exam. EKG showing sinus bradycardia at 59 with T-wave inversion on lateral limits. QTC is 411 Patient currently is on Lasix 60 mg twice daily Echocardiogram on 12/2020 showed ejection fraction of 55-60%. No significant lower disease 04/27/2021 Patient today is lethargic and still hypoxic at 8 L oxygen via nasal cannula. She was admitted for seed acute diastolic CHF and she is on IV Lasix 40 mg twice daily Today regarding to repeat the chest x-ray also with check a pro-calcitonin is e levated at 18 antibiotics Also patient failed swallow evaluation today and her oral medication were placed to IV, patient is currently nothing by mouth. Restaurant And Bar Manager following the patient as well Review of Systems CONSTITUTIONAL: No fever, no malaise, no fatigue. HEENT: No recent visual problems or hearing problems. Denied any sore throat. CARDIOVASCULAR: No orthopnea, PND, no palpitations, no syncope. PULMONARY: No small tenderness, no hemoptysis. GASTROINTESTINAL: No diarrhea, no nausea, no vomiting, no abdominal pain. Normoactive bowel sounds. NEUROLOGICAL: No headaches, no weakness, no numbness. HEMATOLOGICAL: Denies any bleeding or petechiae. Active Medications Generic Name Dose Route Start Last Admin Trade Name Freq PRN Reason Stop Dose Admin Citalopram Hydrobromide 40 mg 04/26/21 09:00 04/27/21 09:07 Citalopram Hydrobromide 20 Mg Tab PO 40 mg DAILY BRODY Administration Diphenhydramine HCl 25 mg 04/27/21 12:24 Diphenhydramine 50 Mg/Ml 1 Ml Vial IVP HS PRN Insomnia Enoxaparin Sodium 100 mg 04/27/21 21:00 Enoxaparin 100 Mg/Ml Syringe SQ Q12HR BRODY Famotidine 20 mg 04/27/21 21:00 Famotidine 20 Mg/2 Ml Vial IV Q12HR BRODY Furosemide 40 mg 04/26/21 09:00 04/27/21 08:59 Furosemide 10 Mg/Ml 4 Ml Vial IV 40 mg Q12HR BRODY Administration Hydralazine HCl 10 mg 04/27/21 21:00 Hydralazine Hcl 20 Mg/Ml 1 Ml Vial IVP Q6H BRODY Levetiracetam 1,000 mg/ IV 100 mls @ 400 mls/hr 04/27/21 21:00 Solution IVPB Q12HR BRODY Magnesium Sulfate/Dextrose 1 100 mls @ 100 mls/hr 04/27/21 13:45 gm/ IV Solution IVPB 04/27/21 15:44 Q1H BRODY Insulin Aspart 0 unit 04/27/21 12:30 04/27/21 12:50 Insulin Aspart (Novolog) 100 Unit/Ml Vial SQ Not Given ACHS BRODY Protocol Miscellaneous Information 1 each 04/26/21 12:34 Magnesium Replacement Protocol 1 Each Misc MISCELLANE DAILY PRN Per Protocol Protocol Miscellaneous Information 1 each 04/27/21 03:23 Magnesium Replacement Protocol 1 Each Misc MISCELLANE DAILY PRN Per Protocol Protocol Naloxone HCl 0.2 mg 04/25/21 22:10 Naloxone 0.4 Mg/Ml 1 Ml Vial IV Q2M PRN Opioid Reversal Objective - Vital Signs Vital signs: Vital Signs Temp 98.2 F 04/27/21 08:00 Pulse 60 04/27/21 08:00 Resp 16 04/27/21 08:00 BP 157/67 04/27/21 08:00 Pulse Ox 94 L 04/27/21 08:00 Intake & Output 04/26/21 04/27/21 04/27/21 18:59 06:59 18:59 Intake Total 0 Output Total 200 800 Balance 0 -200 -800 Weight 97 kg Intake: Oral 0 Output: Urine 200 800 Other: Voiding Method External Catheter External Catheter # Bowel Movements 0 - Exam -GENERAL: The patient is lethargic and sleepy, not in any acute distress. Well developed, well nourished. HEENT: Pupils are round and equally reacting to light. EOMI. No scleral icterus. No conjunctival pallor. Normocephalic, atraumatic. No pharyngeal erythema. No thyromegaly. CARDIOVASCULAR: S1 and S2 present. No murmurs, rubs, or gallops. -PULMONARY: Chest is clear to auscultation, no wheezing Bilateral basal crepitation ABDOMEN: Soft, nontender, nondistended, normoactive bowel sounds. No palpable organomegaly. MUSCULOSKELETAL: No joint swelling or deformity. EXTREMITIES: No cyanosis, clubbing, or pedal edema. -NEUROLOGICAL: Gross neurological examination did not reveal any focal deficits. Chronic left hemiparesis SKIN: No rashes. No petechiae - Labs CBC & Chem 7: 04/27/21 02:22 04/27/21 02:22 Labs: Abnormal Lab Results - Last 24 Hours (Table) 04/26/21 04/26/21 04/27/21 Range/Units 17:10 20:55 02:22 RBC (3.80-5.40) m/uL Hgb (11.4-16.0) gm/dL Hct (34.0-46.0) % MCH (25.0-35.0) pg MCHC (31.0-37.0) g/dL RDW (11.5-15.5) % Chloride 97 L (98-107) mmol/L Carbon Dioxide 32 H (22-30) mmol/L BUN 25 H (7-17) mg/dL Glucose 142 H (74-99) mg/dL POC Glucose (mg/dL) 115 H 123 H (75-99) mg/dL Magnesium 1.3 L (1.6-2.3) mg/dL 04/27/21 04/27/21 Range/Units 02:22 11:55 RBC 3.52 L (3.80-5.40) m/uL Hgb 8.6 L (11.4-16.0) gm/dL Hct 29.1 L (34.0-46.0) % MCH 24.6 L (25.0-35.0) pg MCHC 29.8 L (31.0-37.0) g/dL RDW 15.6 H (11.5-15.5) % Chloride (98-107) mmol/L Carbon Dioxide (22-30) mmol/L BUN (7-17) mg/dL Glucose (74-99) mg/dL POC Glucose (mg/dL) 118 H (75-99) mg/dL Magnesium (1.6-2.3) mg/dL Assessment and Plan Assessment: Acute on chronic diastolic CHF with ejection fraction of 60-65% Acute hypoxic respiratory failure secondary to above the top of chronic respiratory failure Dysphagia, patient failed swallow evaluation Rule out aspiration pneumonia Hypertension Diabetes mellitus Paroxysmal atrial fibrillation, on Eliquis Area of CVA 3 History of seizure disorder History of recurrent UTI Plan: This is a pleasant 65 years old female is with CHF exacerbation. Continue with Lasix intravenously. Monitor creatinine and electrolytes. Monitor input and output area to place patient on fluid restriction Restaurant And Bar Manager Evaluated the patient Repeat chest x-ray Check procalcitonin keep patient nothing by mouth and change medication to IV Labs and medication were reviewed.. Continue same treatment. Continue with symptomatic treatment. Resume home medication. Monitor lytes and vitals. DVT and GI prophylaxis. Further recommendationsas per clinical course of the patient DVT prophylaxis:Lovenox GI Prophylaxis: Pepcid PT/OT: Pending Prognosis is guarded
--- NOTE | 2021-04-27 14:14 | XR ---
EXAMINATION TYPE: XR chest 1V DATE OF EXAM: 04/27/2021 COMPARISON: Chest x-ray 04/25/2021 HISTORY: Hypoxia TECHNIQUE: Single frontal view of the chest is obtained. FINDINGS: There is bibasilar increased attenuation with obscured hemidiaphragms as on prior exam. No evident pneumothorax. Central vascularity, interstitium are increased. Aorta is dense. Heart is enla rged. Loop recorder is present over the left lower chest. There are overlying artifacts. IMPRESSION: Correlate for congestive heart failure with bilateral pleural effusions, findings simila r to prior exam
[2021-04-27 16:50] LABS: Glucose,Whole Blood 108 mg/dL (75-99)
[2021-04-27 21:14] LABS: Glucose,Whole Blood 107 mg/dL (75-99)
[2021-04-27] MEDS: levETIRAcetam IV 1,000 MG in SALINE 1 100ML.BAG IVPB SCH (22:45)
[2021-04-27] MEDS: ENOXAPARIN 100 MG/ML SYRINGE SQ SCH (22:45)
[2021-04-27] MEDS: FAMOTIDINE 20 MG/2 ML VIAL IV SCH (22:45)
[2021-04-27] MEDS: hydrALAZINE HCL 20 MG/ML 1 ML VIAL IVP SCH (22:46)
[2021-04-28] MEDS: hydrALAZINE HCL 20 MG/ML 1 ML VIAL IVP SCH ×2 (04:45→08:09)
[2021-04-28 06:15] LABS: Glucose,Whole Blood 101 mg/dL (75-99)
[2021-04-28] MEDS: FUROSEMIDE 10 MG/ML 4 ML VIAL IV SCH ×2 (06:18→21:08)
[2021-04-28] MEDS: INSULIN ASPART (NovoLOG) 100 UNIT/ML VIAL SQ SCH ×4 (06:32→21:08)
[2021-04-28] MEDS: CITALOPRAM HYDROBROMIDE 20 MG TAB PO SCH ×2 (07:34→16:36)
[2021-04-28 07:36] LABS: Basophils % (A) 0 %; Eosinophils # (A) 0.1 k/uL (0-0.7); Eosinophils % (A) 3 %; HCT 31.8 % (34.0-46.0); HGB 9.4 gm/dL (11.4-16.0); Hypochromasia Marked; Lymphocytes % (A) 21 %; MCH 24.3 pg (25.0-35.0); MCHC 29.5 g/dL (31.0-37.0); MCV 82.3 fL (80.0-100.0); Mean Platelet Volume 8.1; Monocytes # (A) 0.2 k/uL (0-1.0); Monocytes % (A) 5 %; Neutrophils # (A) 3.4 k/uL (1.3-7.7); Neutrophils % (A) 70 %; Platelet Count 242 k/uL (150-450); Poikilocytosis Slight; RBC 3.86 m/uL (3.80-5.40); RDW 15.2 % (11.5-15.5); WBC 4.8 k/uL (3.8-10.6)
[2021-04-28 07:51] LABS: ALT 29 U/L (4-34); AST 42 U/L (14-36); African American GFR (CKD) >90 (>60 ml/min/1.73 sqM); Albumin 3.7 g/dL (3.5-5.0); Alkaline Phosphatase 70 U/L (38-126); Anion Gap 7 mmol/L; Blood Urea Nitrogen 23 mg/dL (7-17); Calcium 9.9 mg/dL (8.4-10.2); Carbon Dioxide 37 mmol/L (22-30); Chloride 96 mmol/L (98-107); Glucose 97 mg/dL (74-99); Non-African American GFR(CKD) >90 (>60 ml/min/1.73 sqM); Potassium 3.3 mmol/L (3.5-5.1); Sodium 140 mmol/L (137-145); Total Bilirubin 0.9 mg/dL (0.2-1.3); Total Protein 6.6 g/dL (6.3-8.2)
[2021-04-28] MEDS: levETIRAcetam IV 1,000 MG in SALINE 1 100ML.BAG IVPB SCH (08:09)
[2021-04-28] MEDS: FAMOTIDINE 20 MG/2 ML VIAL IV SCH ×2 (08:09→21:08)
[2021-04-28] MEDS: ENOXAPARIN 100 MG/ML SYRINGE SQ SCH (08:10)
[2021-04-28] MEDS ORDERED: Potassium Replacement Protocol 1 EACH MISC MISCELLANE PRN (11:42)
[2021-04-28 12:50] LABS: Glucose,Whole Blood 124 mg/dL (75-99)
--- NOTE | 2021-04-28 13:11 | FL ---
EXAMINATION TYPE: FL barium swallow w video DATE OF EXAM: 04/28/2021 MODIFIED SWALLOW / DEGLUTITION STUDY CLINICAL HISTORY: Dysphagia. TECHNIQUE: Deglutition study is performed utilizing thin liquid barium, honey and nectar thick liqui d barium, barium thick applesauce, and barium coated cracker. COMPARISON: None. FINDINGS: Examination was limited due to overlying structures as a result of difficulty with patient positioning due to poor patient mobility. The oral and pharyngeal phases show satisfactory initiation and propagation with all modalities tested. Normal mastication is seen with solid modalities tested . There is no evidence of penetration or aspiration with any modality tested. No significant pharyn geal residue was appreciated. After eating barium coated cracker with normal swallow mechanism, patie nt began to cough and there was suspected aspiration. IMPRESSION: After eating barium coated cracker with normal swallow mechanism, patient began to coug h and there was suspected aspiration.
[2021-04-28] MEDS: POTASSIUM CHLORIDE 10 MEQ in WATER FOR INJECTION 1 100ML.BAG IVPB SCH ×4 (13:19→16:36)
[2021-04-28] MEDS ORDERED: hydrALAZINE HCL 20 MG/ML 1 ML VIAL IVP SCH (14:00)
--- NOTE | 2021-04-28 14:04 | P.PN ---
Subjective This is a pleasant 65 years old female with past medical history of upper tension, diabetes mellitus, atrial fibrillation, CVA, seizure disorder, left- sided hemiparesis, vascular dementia recurrent UTI. Patient was brought by family and daughter to emergency room because she was hypoxic saturating 89% on 10 L oxygen. Usually she has chronic hypoxia on 5 L oxygen per minute at home. Patient can of poor historian and information was provided by the patient and daughter at bedside. And developed hypoxia and shortness of breath of one-day duration so she brought her to the hospital. She has history of stroke and left side hemiparesis. Also recently patient diet change to soft diet. Patient complaining of from cough with no significant phlegm. No chest pain. No abdominal pain or diarrhea. No change in frequency. She is little more drowsy than usual. But she answers most of the questions appropriately, and sometimes she keep quiet and just does not answer the question Currently she is saturating 92% on 9 L oxygen via nasal cannula. Patient is afebrile. CBC, BMP and liver enzymes are unremarkable. Negative less than 0.012. He is only mildly elevated at 4720 magnesium is low at 1.2 which is been replaced Chest x-ray showing moderately severe congestive heart failure with significant increased pulmonary edema compared to old exam. EKG showing sinus bradycardia at 59 with T-wave inversion on lateral limits. QTC is 411 Patient currently is on Lasix 60 mg twice daily Echocardiogram on 12/2020 showed ejection fraction of 55-60%. No significant lower disease 04/27/2021 Patient today is lethargic and still hypoxic at 8 L oxygen via nasal cannula. She was admitted for seed acute diastolic CHF and she is on IV Lasix 40 mg twice daily Today regarding to repeat the chest x-ray also with check a pro-calcitonin is e levated at 18 antibiotics Also patient failed swallow evaluation today and her oral medication were placed to IV, patient is currently nothing by mouth. Senior Research Consultant following the patient as well 04/28/2021 Today patient is more awake and sitting up in bed, eating is easier today, she still hypoxic but her oxygen requirement improved down to 6 L/m. Patient was placed nothing by mouth yesterday and repeat swallow evaluation today was still suspected aspiration, placed which her diet to ground diet. Her blood pressure is controlled with IV hydralazine, but she got one-time dose of 10 mg therefore we will lower the dose to 5 mg every 6 hours. Mildly low potassium is been replaced. Per protocol. She remains on IV Lasix 40 mg twice a day and she was placed on therapeutic dose Lovenox 100 mg twice a day. She has good urine output more than 1000 L today. There is no evidence of infection so far, leukocytosis, no fever. Pro-calcitonin is still pending Objective - Vital Signs Vital signs: Vital Signs Temp 97.8 F 04/27/21 20:00 Pulse 54 L 04/28/21 04:00 Resp 18 04/28/21 04:00 BP 131/61 04/28/21 04:00 Pulse Ox 97 04/28/21 04:00 Intake & Output 04/27/21 04/28/21 04/28/21 18:59 06:59 18:59 Intake Total 0 0 Output Total 665 281 0909 Balance -800 -175 -1000 Intake: Oral 0 0 Output: Urine 161 272 1669 Other: Voiding Method External Catheter External Catheter # Voids 3 # Bowel Movements 0 - Exam -GENERAL: The patient is lethargic and sleepy, not in any acute distress. Well developed, well nourished. HEENT: Pupils are round and equally reacting to light. EOMI. No scleral icterus. No conjunctival pallor. Normocephalic, atraumatic. No pharyngeal erythema. No thyromegaly. CARDIOVASCULAR: S1 and S2 present. No murmurs, rubs, or gallops. -PULMONARY: Chest is clear to auscultation, no wheezing Bilateral basal crepitation ABDOMEN: Soft, nontender, nondistended, normoactive bowel sounds. No palpable organomegaly. MUSCULOSKELETAL: No joint swelling or deformity. EXTREMITIES: No cyanosis, clubbing, or pedal edema. -NEUROLOGICAL: Gross neurological examination did not reveal any focal deficits. Chronic left hemiparesis SKIN: No rashes. No petechiae - Labs CBC & Chem 7: 04/28/21 07:11 04/28/21 06:57 Labs: Abnormal Lab Results - Last 24 Hours (Table) 04/27/21 04/27/21 04/27/21 Range/Units 02:22 16:45 21:12 Hgb (11.4-16.0) gm/dL Hct (34.0-46.0) % MCH (25.0-35.0) pg MCHC (31.0-37.0) g/dL Potassium (3.5-5.1) mmol/L Chloride (98-107) mmol/L Carbon Dioxide (22-30) mmol/L BUN (7-17) mg/dL POC Glucose (mg/dL) 108 H 107 H (75-99) mg/dL AST (14-36) U/L Procalcitonin 0.19 H (0.02-0.09) ng/mL 04/28/21 04/28/21 04/28/21 Range/Units 06:13 06:57 07:11 Hgb 9.4 L (11.4-16.0) gm/dL Hct 31.8 L (34.0-46.0) % MCH 24.3 L (25.0-35.0) pg MCHC 29.5 L (31.0-37.0) g/dL Potassium 3.3 L (3.5-5.1) mmol/L Chloride 96 L (98-107) mmol/L Carbon Dioxide 37 H (22-30) mmol/L BUN 23 H (7-17) mg/dL POC Glucose (mg/dL) 101 H (75-99) mg/dL AST 42 H (14-36) U/L Procalcitonin (0.02-0.09) ng/mL 04/28/21 Range/Units 12:39 Hgb (11.4-16.0) gm/dL Hct (34.0-46.0) % MCH (25.0-35.0) pg MCHC (31.0-37.0) g/dL Potassium (3.5-5.1) mmol/L Chloride (98-107) mmol/L Carbon Dioxide (22-30) mmol/L BUN (7-17) mg/dL POC Glucose (mg/dL) 124 H (75-99) mg/dL AST (14-36) U/L Procalcitonin (0.02-0.09) ng/mL Assessment and Plan Assessment: Acute on chronic diastolic CHF with ejection fraction of 60-65% Acute hypoxic respiratory failure secondary to above the top of chronic respirat ory failure Dysphagia, patient failed swallow evaluation Rule out aspiration pneumonia Hypertension Diabetes mellitus Paroxysmal atrial fibrillation, on Eliquis Area of CVA 3 History of seizure disorder History of recurrent UTI Plan: This is a pleasant 65 years old female is with CHF exacerbation. Continue with Lasix intravenously. Monitor creatinine and electrolytes. Monitor input and output area to place patient on fluid restriction Senior Research Consultant Evaluated the patient Check procalcitonin keep patient nothing by mouth and change medication to IV Labs and medication were reviewed.. Continue same treatment. Continue with symptomatic treatment. Resume home medication. Monitor lytes and vitals. DVT and GI prophylaxis. Further recommendationsas per clinical course of the patient DVT prophylaxis:Lovenox GI Prophylaxis: Pepcid PT/OT: Pending Prognosis is guarded
--- NOTE | 2021-04-28 14:43 | P.PN ---
Subjective This is a 65-year-old female with a past medical history significant for paroxysmal atrial fibrillation on Eliquis, hypertension, hyperlipidemia, krista betes mellitus, previous carotid enterectomy, congestive heart failure, home O2 use, CVA with left-sided paralysis, loop recorder, and dementia. Patient follows in the office with Dr. Alicea. We have been asked to see the patient in consultation for congestive heart failure. Most recent echocardiogram obtained in December 2020 revealing ejection fraction 55-60%. Mild aortic stenosis. Mild mitral regurgitation. Mild tricuspid regurgitation. Mild pulmonary hypertension. 04/28/2021 Patient examined this morning at the bedside. Patient is more alert able to answer questions. Patient was lethargic yesterday and Her swallow eval. All her home by mouth medications were discontinued due to aspiration precautions. She remains on nasal cannula with oxygen saturations greater than 92%. She remains on IV Lasix. Sodium 140 potassium 3.3, BUN 23, serum creatinine 0.6, Ma gnesium 2.0. PHYSICAL EXAM: VITAL SIGNS: Reviewed. GENERAL: in no acute distress. HEENT: Neck supple. No JVD LUNGS: Respirations even and unlabored. Lungs diminished anteriorly. Unable to listen to lung clifford posteriorly as patient is unable to sit up or roll to the side at time of examination HEART: Regular rate and rhythm. S1 and S2 heard. Systolic murmur noted. ABDOMEN: Soft. Nondistended. Nontender. EXTREMITIES: Normal range of motion. No clubbing or cyanosis. Peripheral pulses intact. No lower extremity edema ASSESSMENT: Acute on chronic hypoxic respiratory failure, on home oxygen Acute exacerbation of diastolic congestive heart failure, ejection fraction 55- 60% Paroxysmal atrial fibrillation on anticoagulation with Eliquis Hypertension Hyperlipidemia Diabetes mellitus History of carotid endarterectomy History of CVA with left-sided ptosis History of loop recorder insertion Dementia Hypomagnesemia PLAN: No need to repeat echocardiogram as this was performed in December 2020 Patient unable to take PO medication at this time due to aspiration risk- We will continue IV Lasix Please restart home cardiac medications, transition to PO Lasix, and restart anticoagulation when patient is able to take PO medication Replace potassium Monitor kidney function Daily weights, Accurate I&O From a cardiology perspective, patient is stable. We will follow the patient as needed. Please reconsult if needed. Nurse practitioner note has been reviewed by physician. Signing provider agrees with the documented findings, assessment, and plan of care. Objective - Vital Signs Vital signs: Vital Signs Temp 97.8 F 04/27/21 20:00 Pulse 54 L 04/28/21 04:00 Resp 18 04/28/21 04:00 BP 131/61 04/28/21 04:00 Pulse Ox 97 04/28/21 04:00 Intake & Output 04/27/21 04/28/21 04/28/21 18:59 06:59 18:59 Intake Total 0 0 Output Total 709 126 7307 Balance -800 -175 -1000 Intake: Oral 0 0 Output: Urine 928 222 7473 Other: Voiding Method External Catheter External Catheter # Voids 3 # Bowel Movements 0 - Labs CBC & Chem 7: 04/28/21 07:11 04/28/21 06:57 Labs: Abnormal Lab Results - Last 24 Hours (Table) 04/27/21 04/27/21 04/27/21 Range/Units 02:22 16:45 21:12 Hgb (11.4-16.0) gm/dL Hct (34.0-46.0) % MCH (25.0-35.0) pg MCHC (31.0-37.0) g/dL Potassium (3.5-5.1) mmol/L Chloride (98-107) mmol/L Carbon Dioxide (22-30) mmol/L BUN (7-17) mg/dL POC Glucose (mg/dL) 108 H 107 H (75-99) mg/dL AST (14-36) U/L Procalcitonin 0.19 H (0.02-0.09) ng/mL 04/28/21 04/28/21 04/28/21 Range/Units 06:13 06:57 07:11 Hgb 9.4 L (11.4-16.0) gm/dL Hct 31.8 L (34.0-46.0) % MCH 24.3 L (25.0-35.0) pg MCHC 29.5 L (31.0-37.0) g/dL Potassium 3.3 L (3.5-5.1) mmol/L Chloride 96 L (98-107) mmol/L Carbon Dioxide 37 H (22-30) mmol/L BUN 23 H (7-17) mg/dL POC Glucose (mg/dL) 101 H (75-99) mg/dL AST 42 H (14-36) U/L Procalcitonin (0.02-0.09) ng/mL 04/28/21 Range/Units 12:39 Hgb (11.4-16.0) gm/dL Hct (34.0-46.0) % MCH (25.0-35.0) pg MCHC (31.0-37.0) g/dL Potassium (3.5-5.1) mmol/L Chloride (98-107) mmol/L Carbon Dioxide (22-30) mmol/L BUN (7-17) mg/dL POC Glucose (mg/dL) 124 H (75-99) mg/dL AST (14-36) U/L Procalcitonin (0.02-0.09) ng/mL
[2021-04-28] MEDS ORDERED: FUROSEMIDE 40 MG TAB PO SCH (16:00)
[2021-04-28] MEDS: ALPRAZolam 0.5 MG TAB PO SCH (16:41)
[2021-04-28 21:02] LABS: Glucose,Whole Blood 121 mg/dL (75-99)
[2021-04-28] MEDS: levETIRAcetam 500 MG TAB PO SCH (21:07)
[2021-04-28] MEDS: hydrALAZINE HCL 50 MG TAB PO SCH (21:07)
[2021-04-28] MEDS: traZODone HCL 100 MG TAB PO SCH (21:07)
[2021-04-28] MEDS: APIXABAN 5 MG TAB PO SCH (21:07)
[2021-04-28] MEDS: ATORVASTATIN 80 MG TAB PO SCH (21:08)
[2021-04-28] MEDS: AMOXIC-POT CLAV 875-125MG 1 EACH TAB PO SCH (21:30)
[2021-04-29 06:42] LABS: Glucose,Whole Blood 101 mg/dL (75-99)
[2021-04-29] MEDS: carvediloL 6.25 MG TAB PO SCH ×2 (06:49→16:26)
[2021-04-29] MEDS: INSULIN ASPART (NovoLOG) 100 UNIT/ML VIAL SQ SCH ×4 (06:49→23:22)
[2021-04-29] MEDS: metFORMIN 500 MG TAB PO SCH ×2 (06:49→16:26)
[2021-04-29] MEDS: APIXABAN 5 MG TAB PO SCH ×2 (09:51→23:21)
[2021-04-29] MEDS: LOSARTAN 50 MG TAB PO SCH (09:51)
[2021-04-29] MEDS: levETIRAcetam 500 MG TAB PO SCH ×2 (09:51→23:20)
[2021-04-29] MEDS: AMOXIC-POT CLAV 875-125MG 1 EACH TAB PO SCH ×2 (09:52→23:20)
[2021-04-29] MEDS: CITALOPRAM HYDROBROMIDE 20 MG TAB PO SCH (09:52)
[2021-04-29] MEDS: FAMOTIDINE 20 MG TAB PO SCH ×2 (09:52→23:20)
[2021-04-29] MEDS: hydrALAZINE HCL 50 MG TAB PO SCH ×3 (09:52→23:20)
[2021-04-29] MEDS: FUROSEMIDE 10 MG/ML 4 ML VIAL IV SCH ×2 (09:52→23:21)
[2021-04-29] MEDS: amLODIPine 10 MG TAB PO SCH (09:55)
[2021-04-29 10:27] LABS: African American GFR (CKD) >90 (>60 ml/min/1.73 sqM); Anion Gap 4 mmol/L; Blood Urea Nitrogen 19 mg/dL (7-17); Calcium 8.9 mg/dL (8.4-10.2); Carbon Dioxide 36 mmol/L (22-30); Chloride 95 mmol/L (98-107); Glucose 87 mg/dL (74-99); Non-African American GFR(CKD) >90 (>60 ml/min/1.73 sqM); Potassium 3.5 mmol/L (3.5-5.1); Sodium 135 mmol/L (137-145)
--- NOTE | 2021-04-29 11:21 | XR ---
EXAMINATION TYPE: XR chest 1V DATE OF EXAM: 04/29/2021 COMPARISON: Chest x-ray 04/27/2021 HISTORY: Shortness of breath, congestive heart failure TECHNIQUE: Single frontal view of the chest is obtained. FINDINGS: Findings are similar to prior exam. Patient is rotated. IMPRESSION: Findings consistent with patient's history of congestive heart failure, basilar effusion s are suspected with associated edema versus atelectasis, pneumonia not excluded. Heart is obscured. There is contrast material within the bowel. There are overlying leads.
[2021-04-29 12:02] LABS: Glucose,Whole Blood 109 mg/dL (75-99)
--- NOTE | 2021-04-29 12:11 | P.PN ---
Subjective This is a pleasant 65 years old female with past medical history of upper tension, diabetes mellitus, atrial fibrillation, CVA, seizure disorder, left- sided hemiparesis, vascular dementia recurrent UTI. Patient was brought by family and daughter to emergency room because she was hypoxic saturating 89% on 10 L oxygen. Usually she has chronic hypoxia on 5 L oxygen per minute at home. Patient can of poor historian and information was provided by the patient and daughter at bedside. And developed hypoxia and shortness of breath of one-day duration so she brought her to the hospital. She has history of stroke and left side hemiparesis. Also recently patient diet change to soft diet. Patient complaining of from cough with no significant phlegm. No chest pain. No abdominal pain or diarrhea. No change in frequency. She is little more drowsy than usual. But she answers most of the questions appropriately, and sometimes she keep quiet and just does not answer the question Currently she is saturating 92% on 9 L oxygen via nasal cannula. Patient is afebrile. CBC, BMP and liver enzymes are unremarkable. Negative less than 0.012. He is only mildly elevated at 4720 magnesium is low at 1.2 which is been replaced Chest x-ray showing moderately severe congestive heart failure with significant increased pulmonary edema compared to old exam. EKG showing sinus bradycardia at 59 with T-wave inversion on lateral limits. QTC is 411 Patient currently is on Lasix 60 mg twice daily Echocardiogram on 12/2020 showed ejection fraction of 55-60%. No significant lower disease 04/27/2021 Patient today is lethargic and still hypoxic at 8 L oxygen via nasal cannula. She was admitted for seed acute diastolic CHF and she is on IV Lasix 40 mg twice daily Today regarding to repeat the chest x-ray also with check a pro-calcitonin is e levated at 18 antibiotics Also patient failed swallow evaluation today and her oral medication were placed to IV, patient is currently nothing by mouth. Windows Migration Technician following the patient as well 04/28/2021 Today patient is more awake and sitting up in bed, eating is easier today, she still hypoxic but her oxygen requirement improved down to 6 L/m. Patient was placed nothing by mouth yesterday and repeat swallow evaluation today was still suspected aspiration, placed which her diet to ground diet. Her blood pressure is controlled with IV hydralazine, but she got one-time dose of 10 mg therefore we will lower the dose to 5 mg every 6 hours. Mildly low potassium is been replaced. Per protocol. She remains on IV Lasix 40 mg twice a day and she was placed on therapeutic dose Lovenox 100 mg twice a day. She has good urine output more than 1000 L today. There is no evidence of infection so far, leukocytosis, no fever. Pro-calcitonin is still pending 04/29/2021 Patient this morning was more sleepy and her oxygen saturation was 90s on 7 liters per minute oxygen, she is mildly bradycardic and aggressive vitals are stable and blood pressure 118/72. Later on her oxygen requirements came down to half liter per minute Chest x-ray showing CHF and pneumonia cannot be excluded. CBC is unremarkable with stable hemoglobin. Patient yesterday swallow evaluation and tube feeding was discontinued and patient is back to oral medication. Also Augmentin therapy to dose was added. Patient currently on IV Lasix 40 mg twice daily with creatinine normal. Objective - Vital Signs Vital signs: Vital Signs Temp 98.2 F 04/29/21 11:53 Pulse 50 L 04/29/21 11:53 Resp 18 04/29/21 11:53 BP 118/72 04/29/21 11:53 Pulse Ox 98 04/29/21 11:53 Intake & Output 04/28/21 04/29/21 04/29/21 18:59 06:59 18:59 Intake Total 500 250 700 Output Total 1350 850 Balance -850 -600 700 Intake: Oral 500 250 700 Output: Urine 1350 850 Other: Voiding Method External Catheter External Catheter External Catheter - Exam -GENERAL: The patient is lethargic and sleepy, not in any acute distress. Well developed, well nourished. HEENT: Pupils are round and equally reacting to light. EOMI. No scleral icterus. No conjunctival pallor. Normocephalic, atraumatic. No pharyngeal erythema. No thyromegaly. CARDIOVASCULAR: S1 and S2 present. No murmurs, rubs, or gallops. -PULMONARY: Chest is clear to auscultation, no wheezing Bilateral basal crepitation ABDOMEN: Soft, nontender, nondistended, normoactive bowel sounds. No palpable organomegaly. MUSCULOSKELETAL: No joint swelling or deformity. EXTREMITIES: No cyanosis, clubbing, or pedal edema. -NEUROLOGICAL: Gross neurological examination did not reveal any focal deficits. Chronic left hemiparesis SKIN: No rashes. No petechiae - Labs CBC & Chem 7: 04/28/21 07:11 04/29/21 09:44 Labs: Abnormal Lab Results - Last 24 Hours (Table) 04/28/21 04/28/21 04/28/21 Range/Units 07:11 12:39 12:48 Sodium (137-145) mmol/L Chloride (98-107) mmol/L Carbon Dioxide (22-30) mmol/L BUN (7-17) mg/dL POC Glucose (mg/dL) 124 H (75-99) mg/dL Procalcitonin 0.14 H 0.13 H (0.02-0.09) ng/mL 04/28/21 04/29/21 04/29/21 Range/Units 21:00 06:41 09:44 Sodium 135 L (137-145) mmol/L Chloride 95 L (98-107) mmol/L Carbon Dioxide 36 H (22-30) mmol/L BUN 19 H (7-17) mg/dL POC Glucose (mg/dL) 121 H 101 H (75-99) mg/dL Procalcitonin (0.02-0.09) ng/mL 04/29/21 Range/Units 11:56 Sodium (137-145) mmol/L Chloride (98-107) mmol/L Carbon Dioxide (22-30) mmol/L BUN (7-17) mg/dL POC Glucose (mg/dL) 109 H (75-99) mg/dL Procalcitonin (0.02-0.09) ng/mL Assessment and Plan Assessment: Acute on chronic diastolic CHF with ejection fraction of 60-65% Acute hypoxic respiratory failure secondary to above the top of chronic respiratory failure Dysphagia, patient failed swallow evaluation Rule out aspiration pneumonia Hypertension Diabetes mellitus Paroxysmal atrial fibrillation, on Eliquis Area of CVA 3 History of seizure disorder History of recurrent UTI Plan: This is a pleasant 65 years old female is with CHF exacerbation. Continue with Lasix intravenously. Monitor creatinine and electrolytes. Monitor input and output area to place patient on fluid restriction Windows Migration Technician Evaluated the patient Check procalcitonin keep patient nothing by mouth and change medication to IV Labs and medication were reviewed.. Continue same treatment. Continue with symptomatic treatment. Resume home medication. Monitor lytes and vitals. DVT and GI prophylaxis. Further recommendationsas per clinical course of the patient DVT prophylaxis:Lovenox GI Prophylaxis: Pepcid PT/OT: Pending Prognosis is guarded
[2021-04-29] MEDS: ALPRAZolam 0.5 MG TAB PO SCH (14:51)
[2021-04-29 17:05] LABS: Glucose,Whole Blood 101 mg/dL (75-99)
[2021-04-29 20:04] LABS: Glucose,Whole Blood 90 mg/dL (75-99)
[2021-04-29] MEDS: traZODone HCL 100 MG TAB PO SCH (23:20)
[2021-04-29] MEDS: ATORVASTATIN 80 MG TAB PO SCH (23:21)
[2021-04-30 05:56] LABS: Glucose,Whole Blood 86 mg/dL (75-99)
[2021-04-30] MEDS: INSULIN ASPART (NovoLOG) 100 UNIT/ML VIAL SQ SCH ×4 (06:34→21:13)
[2021-04-30] MEDS: carvediloL 6.25 MG TAB PO SCH (06:36)
[2021-04-30] MEDS: metFORMIN 500 MG TAB PO SCH (06:36)
[2021-04-30 08:16] LABS: Basophils % (A) 1 %; Eosinophils # (A) 0.1 k/uL (0-0.7); Eosinophils % (A) 1 %; HCT 28.1 % (34.0-46.0); HGB 8.3 gm/dL (11.4-16.0); Hypochromasia Marked; Lymphocytes # (A) 1.4 k/uL (1.0-4.8); Lymphocytes % (A) 28 %; MCH 24.5 pg (25.0-35.0); MCHC 29.5 g/dL (31.0-37.0); MCV 82.9 fL (80.0-100.0); Mean Platelet Volume 7.2; Monocytes # (A) 0.3 k/uL (0-1.0); Monocytes % (A) 7 %; Neutrophils # (A) 3.1 k/uL (1.3-7.7); Neutrophils % (A) 61 %; Platelet Count 192 k/uL (150-450); Poikilocytosis Slight; RBC 3.39 m/uL (3.80-5.40); RDW 15.2 % (11.5-15.5)
[2021-04-30 08:17] LABS: African American GFR (CKD) >90 (>60 ml/min/1.73 sqM); Anion Gap 2 mmol/L; Blood Urea Nitrogen 18 mg/dL (7-17); Carbon Dioxide 37 mmol/L (22-30); Chloride 97 mmol/L (98-107); Glucose 72 mg/dL (74-99); Magnesium 1.5 mg/dL (1.6-2.3); Non-African American GFR(CKD) >90 (>60 ml/min/1.73 sqM); Potassium 3.5 mmol/L (3.5-5.1); Sodium 136 mmol/L (137-145)
[2021-04-30] MEDS: levETIRAcetam 500 MG TAB PO SCH (08:33)
[2021-04-30] MEDS: hydrALAZINE HCL 50 MG TAB PO SCH (08:33)
[2021-04-30] MEDS: ALPRAZolam 0.5 MG TAB PO SCH (08:33)
[2021-04-30] MEDS: AMOXIC-POT CLAV 875-125MG 1 EACH TAB PO SCH (08:33)
[2021-04-30] MEDS: FAMOTIDINE 20 MG TAB PO SCH (08:33)
[2021-04-30] MEDS: CITALOPRAM HYDROBROMIDE 20 MG TAB PO SCH (08:34)
[2021-04-30] MEDS: FUROSEMIDE 10 MG/ML 4 ML VIAL IV SCH ×2 (08:34→21:22)
[2021-04-30] MEDS: amLODIPine 10 MG TAB PO SCH (08:34)
[2021-04-30] MEDS: APIXABAN 5 MG TAB PO SCH (08:34)
[2021-04-30] MEDS: LOSARTAN 50 MG TAB PO SCH (08:34)
[2021-04-30] MEDS ORDERED: hydrALAZINE HCL 20 MG/ML 1 ML VIAL IVP PRN (10:00)
--- NOTE | 2021-04-30 11:42 | CT ---
EXAMINATION TYPE: CT brain wo con DATE OF EXAM: 04/30/2021 COMPARISON: CT 11/06/2019 HISTORY: AMS CT DLP: 1173.4 mGycm Automated exposure control for dose reduction was used. CT brain was performed. FINDINGS: There is evidence of prior cerebrovascular accident in the watershed area of the right parietal regio n, there is associated ex vacuo phenomenon of the posterior horn the right lateral ventricle, periven tricular white matter shows patchy low-attenuation, cortical atrophy again noted as on previous exam. Bony excrescence at the inner table at the level the convexity is stable and may represent an osteom a. There are cerebral vascular calcifications. There is no hemorrhage or change in the prominence of the ventricles as compared to prior exam. Paranasal sinuses are well aerated. Calvarium is intact. Or bits show symmetric appearance. IMPRESSION: STABLE CHRONIC SMALL VESSEL ISCHEMIC CHANGES. CORTICAL ATROPHY, DIFFICULT TO EXCLUDE NORMAL PRESSURE HYDROCEPHALUS
--- NOTE | 2021-04-30 11:56 | XR ---
EXAMINATION TYPE: XR chest 1V portable DATE OF EXAM: 04/30/2021 COMPARISON: Chest x-ray 04/29/2021 HISTORY: Congestive heart failure TECHNIQUE: Single frontal view of the chest is obtained. FINDINGS: Findings are similar to prior exam. IMPRESSION: Orally for congestive heart failure with bibasilar effusions and associated atelectasis versus edema, pneumonia not excluded. There is cardiomegaly. Patient is rotated.
[2021-04-30 11:57] LABS: Glucose,Whole Blood 81 mg/dL (75-99)
--- NOTE | 2021-04-30 13:09 | P.PN ---
Subjective This is a pleasant 65 years old female with past medical history of upper tension, diabetes mellitus, atrial fibrillation, CVA, seizure disorder, left- sided hemiparesis, vascular dementia recurrent UTI. Patient was brought by family and daughter to emergency room because she was hypoxic saturating 89% on 10 L oxygen. Usually she has chronic hypoxia on 5 L oxygen per minute at home. Patient can of poor historian and information was provided by the patient and daughter at bedside. And developed hypoxia and shortness of breath of one-day duration so she brought her to the hospital. She has history of stroke and left side hemiparesis. Also recently patient diet change to soft diet. Patient complaining of from cough with no significant phlegm. No chest pain. No abdominal pain or diarrhea. No change in frequency. She is little more drowsy than usual. But she answers most of the questions appropriately, and sometimes she keep quiet and just does not answer the question Currently she is saturating 92% on 9 L oxygen via nasal cannula. Patient is afebrile. CBC, BMP and liver enzymes are unremarkable. Negative less than 0.012. He is only mildly elevated at 4720 magnesium is low at 1.2 which is been replaced Chest x-ray showing moderately severe congestive heart failure with significant increased pulmonary edema compared to old exam. EKG showing sinus bradycardia at 59 with T-wave inversion on lateral limits. QTC is 411 Patient currently is on Lasix 60 mg twice daily Echocardiogram on 12/2020 showed ejection fraction of 55-60%. No significant lower disease 04/27/2021 Patient today is lethargic and still hypoxic at 8 L oxygen via nasal cannula. She was admitted for seed acute diastolic CHF and she is on IV Lasix 40 mg twice daily Today regarding to repeat the chest x-ray also with check a pro-calcitonin is e levated at 18 antibiotics Also patient failed swallow evaluation today and her oral medication were placed to IV, patient is currently nothing by mouth. Hospice Music Therapist following the patient as well 04/28/2021 Today patient is more awake and sitting up in bed, eating is easier today, she still hypoxic but her oxygen requirement improved down to 6 L/m. Patient was placed nothing by mouth yesterday and repeat swallow evaluation today was still suspected aspiration, placed which her diet to ground diet. Her blood pressure is controlled with IV hydralazine, but she got one-time dose of 10 mg therefore we will lower the dose to 5 mg every 6 hours. Mildly low potassium is been replaced. Per protocol. She remains on IV Lasix 40 mg twice a day and she was placed on therapeutic dose Lovenox 100 mg twice a day. She has good urine output more than 1000 L today. There is no evidence of infection so far, leukocytosis, no fever. Pro-calcitonin is still pending 04/29/2021 Patient this morning was more sleepy and her oxygen saturation was 90s on 7 liters per minute oxygen, she is mildly bradycardic and aggressive vitals are stable and blood pressure 118/72. Later on her oxygen requirements came down to half liter per minute Chest x-ray showing CHF and pneumonia cannot be excluded. CBC is unremarkable with stable hemoglobin. Patient yesterday swallow evaluation and tube feeding was discontinued and patient is back to oral medication. Also Augmentin therapy to dose was added. Patient currently on IV Lasix 40 mg twice daily with creatinine normal. 04/30/2021 Patient this morning was more sleepy, poorly responsive to verbal or tactile stimuli. She did not open eyes, she does not follow commands and she did not answer questions. Her vitals looks stable and afebrile. CT of the brain showing no acute process, difficult to exclude normal pressure hydrocephalus Showing bilateral CHF, pneumonia cannot be excluded patient difficulty eating with fissure medication to IV doses again Objective - Vital Signs Vital signs: Vital Signs Temp 98.6 F 04/30/21 12:00 Pulse 54 L 04/30/21 12:00 Resp 18 04/30/21 12:00 BP 129/61 04/30/21 12:00 Pulse Ox 92 L 04/30/21 12:00 Intake & Output 04/29/21 04/30/21 04/30/21 18:59 06:59 18:59 Intake Total 700 0 Output Total 550 300 1 Balance 150 -300 -1 Weight 94.5 kg Intake: Oral 700 0 Output: Urine 550 300 Urine/Stool Mix 1 Other: Voiding Method External Catheter External Catheter External Catheter - Exam -GENERAL: The patient is lethargic and sleepy, not in any acute distress. Well developed, well nourished. HEENT: Pupils are round and equally reacting to light. EOMI. No scleral icterus. No conjunctival pallor. Normocephalic, atraumatic. No pharyngeal erythema. No thyromegaly. CARDIOVASCULAR: S1 and S2 present. No murmurs, rubs, or gallops. -PULMONARY: Chest is clear to auscultation, no wheezing Bilateral basal crepitation ABDOMEN: Soft, nontender, nondistended, normoactive bowel sounds. No palpable organomegaly. MUSCULOSKELETAL: No joint swelling or deformity. EXTREMITIES: No cyanosis, clubbing, or pedal edema. -NEUROLOGICAL: Gross neurological examination did not reveal any focal deficits. Chronic left hemiparesis SKIN: No rashes. No petechiae - Labs CBC & Chem 7: 04/30/21 07:41 04/30/21 07:41 Labs: Abnormal Lab Results - Last 24 Hours (Table) 04/29/21 04/30/21 04/30/21 Range/Units 17:00 07:41 07:41 RBC 3.39 L (3.80-5.40) m/uL Hgb 8.3 L (11.4-16.0) gm/dL Hct 28.1 L (34.0-46.0) % MCH 24.5 L (25.0-35.0) pg MCHC 29.5 L (31.0-37.0) g/dL Sodium 136 L (137-145) mmol/L Chloride 97 L (98-107) mmol/L Carbon Dioxide 37 H (22-30) mmol/L BUN 18 H (7-17) mg/dL Glucose 72 L (74-99) mg/dL POC Glucose (mg/dL) 101 H (75-99) mg/dL Magnesium 1.5 L (1.6-2.3) mg/dL Assessment and Plan Assessment: Acute on chronic diastolic CHF with ejection fraction of 60-65% Acute hypoxic respiratory failure secondary to above the top of chronic respira tory failure Dysphagia, patient failed swallow evaluation Rule out aspiration pneumonia Hypertension Diabetes mellitus Paroxysmal atrial fibrillation, on Eliquis Area of CVA 3 History of seizure disorder History of recurrent UTI Plan: This is a pleasant 65 years old female is with CHF exacerbation. Continue with Lasix intravenously. Monitor creatinine and electrolytes. Monitor input and output area to place patient on fluid restriction Hospice Music Therapist Evaluated the patient Check procalcitonin keep patient nothing by mouth and change medication to IV Labs and medication were reviewed.. Continue same treatment. Continue with symptomatic treatment. Resume home medication. Monitor lytes and vitals. DVT and GI prophylaxis. Further recommendationsas per clinical course of the patient DVT prophylaxis:Lovenox GI Prophylaxis: Pepcid PT/OT: Pending Patient prognosis is poor and if she does not improve we may consider more comfortable measures with the family, also patient currently is full code. The family about the CODE STATUS
[2021-04-30] MEDS ORDERED: levETIRAcetam IV 500 MG in SALINE 1 100ML.BAG IVPB ONE (15:29)
[2021-04-30] MEDS ORDERED: levETIRAcetam IV 500 MG in SODIUM CHLORIDE 0.9% 100 ML IVPB ONE (15:45)
[2021-04-30 16:57] LABS: Glucose,Whole Blood 97 mg/dL (75-99)
[2021-04-30] MEDS: hydrALAZINE HCL 20 MG/ML 1 ML VIAL IVP SCH ×2 (17:02→23:59)
[2021-04-30] MEDS: PIPERACILLIN-TAZOBACTAM 3.375 GM in SODIUM CHLORIDE 0.9% 100 ML IVPB SCH ×2 (17:07→23:58)
[2021-04-30 20:20] LABS: Glucose,Whole Blood 88 mg/dL (75-99)
[2021-04-30] MEDS: levETIRAcetam IV 1,000 MG in SALINE 1 100ML.BAG IVPB SCH (21:21)
[2021-04-30] MEDS: FAMOTIDINE 20 MG/2 ML VIAL IV SCH (21:22)
[2021-04-30] MEDS: ENOXAPARIN 100 MG/ML SYRINGE SQ SCH (21:22)
[2021-05-01] MEDS: MAGNESIUM SULFATE-D5W PMX 1 GM in DEXTROSE/WATER 1 100ML.BAG IVPB SCH ×2 (02:05→02:58)
[2021-05-01 06:10] LABS: Glucose,Whole Blood 102 mg/dL (75-99)
[2021-05-01] MEDS: INSULIN ASPART (NovoLOG) 100 UNIT/ML VIAL SQ SCH ×4 (06:17→20:37)
[2021-05-01] MEDS: hydrALAZINE HCL 20 MG/ML 1 ML VIAL IVP SCH ×4 (06:17→23:31)
[2021-05-01] MEDS: levETIRAcetam IV 1,000 MG in SALINE 1 100ML.BAG IVPB SCH ×2 (08:24→20:37)
[2021-05-01] MEDS: FUROSEMIDE 10 MG/ML 4 ML VIAL IV SCH ×2 (08:24→20:37)
[2021-05-01] MEDS: ENOXAPARIN 100 MG/ML SYRINGE SQ SCH ×2 (08:24→20:37)
[2021-05-01] MEDS: FAMOTIDINE 20 MG/2 ML VIAL IV SCH ×2 (08:24→20:37)
[2021-05-01] MEDS: PIPERACILLIN-TAZOBACTAM 3.375 GM in SODIUM CHLORIDE 0.9% 100 ML IVPB SCH ×3 (08:52→23:37)
[2021-05-01 09:19] LABS: African American GFR (CKD) >90 (>60 ml/min/1.73 sqM); Anion Gap 10 mmol/L; Blood Urea Nitrogen 15 mg/dL (7-17); Calcium 9.3 mg/dL (8.4-10.2); Carbon Dioxide 33 mmol/L (22-30); Chloride 96 mmol/L (98-107); Glucose 92 mg/dL (74-99); Non-African American GFR(CKD) >90 (>60 ml/min/1.73 sqM); Potassium 3.1 mmol/L (3.5-5.1); Sodium 139 mmol/L (137-145)
[2021-05-01] MEDS ORDERED: Potassium Replacement Protocol 1 EACH MISC MISCELLANE PRN (09:26)
[2021-05-01] MEDS: POTASSIUM CHLORIDE 10 MEQ in WATER FOR INJECTION 1 100ML.BAG IVPB SCH ×4 (09:52→13:44)
[2021-05-01 12:16] LABS: Glucose,Whole Blood 85 mg/dL (75-99)
--- NOTE | 2021-05-01 13:36 | P.PN ---
Subjective This is a pleasant 65 years old female with past medical history of upper tension, diabetes mellitus, atrial fibrillation, CVA, seizure disorder, left- sided hemiparesis, vascular dementia recurrent UTI. Patient was brought by family and daughter to emergency room because she was hypoxic saturating 89% on 10 L oxygen. Usually she has chronic hypoxia on 5 L oxygen per minute at home. Patient can of poor historian and information was provided by the patient and daughter at bedside. And developed hypoxia and shortness of breath of one-day duration so she brought her to the hospital. She has history of stroke and left side hemiparesis. Also recently patient diet change to soft diet. Patient complaining of from cough with no significant phlegm. No chest pain. No abdominal pain or diarrhea. No change in frequency. She is little more drowsy than usual. But she answers most of the questions appropriately, and sometimes she keep quiet and just does not answer the question Currently she is saturating 92% on 9 L oxygen via nasal cannula. Patient is afebrile. CBC, BMP and liver enzymes are unremarkable. Negative less than 0.012. He is only mildly elevated at 4720 magnesium is low at 1.2 which is been replaced Chest x-ray showing moderately severe congestive heart failure with significant increased pulmonary edema compared to old exam. EKG showing sinus bradycardia at 59 with T-wave inversion on lateral limits. QTC is 411 Patient currently is on Lasix 60 mg twice daily Echocardiogram on 12/2020 showed ejection fraction of 55-60%. No significant lower disease 04/27/2021 Patient today is lethargic and still hypoxic at 8 L oxygen via nasal cannula. She was admitted for seed acute diastolic CHF and she is on IV Lasix 40 mg twice daily Today regarding to repeat the chest x-ray also with check a pro-calcitonin is e levated at 18 antibiotics Also patient failed swallow evaluation today and her oral medication were placed to IV, patient is currently nothing by mouth. Project Manager Industrial following the patient as well 04/28/2021 Today patient is more awake and sitting up in bed, eating is easier today, she still hypoxic but her oxygen requirement improved down to 6 L/m. Patient was placed nothing by mouth yesterday and repeat swallow evaluation today was still suspected aspiration, placed which her diet to ground diet. Her blood pressure is controlled with IV hydralazine, but she got one-time dose of 10 mg therefore we will lower the dose to 5 mg every 6 hours. Mildly low potassium is been replaced. Per protocol. She remains on IV Lasix 40 mg twice a day and she was placed on therapeutic dose Lovenox 100 mg twice a day. She has good urine output more than 1000 L today. There is no evidence of infection so far, leukocytosis, no fever. Pro-calcitonin is still pending 04/29/2021 Patient this morning was more sleepy and her oxygen saturation was 90s on 7 liters per minute oxygen, she is mildly bradycardic and aggressive vitals are stable and blood pressure 118/72. Later on her oxygen requirements came down to half liter per minute Chest x-ray showing CHF and pneumonia cannot be excluded. CBC is unremarkable with stable hemoglobin. Patient yesterday swallow evaluation and tube feeding was discontinued and patient is back to oral medication. Also Augmentin therapy to dose was added. Patient currently on IV Lasix 40 mg twice daily with creatinine normal. 04/30/2021 Patient this morning was more sleepy, poorly responsive to verbal or tactile stimuli. She did not open eyes, she does not follow commands and she did not answer questions. Her vitals looks stable and afebrile. CT of the brain showing no acute process, difficult to exclude normal pressure hydrocephalus Showing bilateral CHF, pneumonia cannot be excluded patient difficulty eating with fissure medication to IV doses again 05/01/2021 Patient is more awake today after stopping her benzodiazepines and trazodone, she is more interactive and follows commands. Her diet was resumed as dysphagia level II with ground diet, keep head of the bit more than 45. Her oxygen saturation and requirement is back to baseline, home she is on 5 L oxygen via nasal cannula and currently she is on 6 L saturating 97% to 98% Electrolytes replaced per protocol for example potassium we will keep her medication IV for now Keep the patient on Zosyn, IV Lasix Possible discharge on Monday Objective - Vital Signs Vital signs: Vital Signs Temp 99 F 05/01/21 12:14 Pulse 64 05/01/21 12:14 Resp 18 05/01/21 12:14 BP 115/69 05/01/21 12:14 Pulse Ox 97 05/01/21 12:14 Intake & Output 04/30/21 05/01/21 05/01/21 18:59 06:59 18:59 Intake Total 118 0 Output Total 851 1150 Balance -733 -1150 0 Weight 94.5 kg 89.5 kg Intake: Oral 118 0 Output: Urine 850 1150 Urine/Stool Mix 1 Other: Voiding Method External Catheter External Catheter External Catheter # Bowel Movements 0 - Exam -GENERAL: The patient is lethargic and sleepy, not in any acute distress. Well developed, well nourished. HEENT: Pupils are round and equally reacting to light. EOMI. No scleral icterus. No conjunctival pallor. Normocephalic, atraumatic. No pharyngeal erythema. No thyromegaly. CARDIOVASCULAR: S1 and S2 present. No murmurs, rubs, or gallops. -PULMONARY: Chest is clear to auscultation, no wheezing Bilateral basal crepitation ABDOMEN: Soft, nontender, nondistended, normoactive bowel sounds. No palpable organomegaly. MUSCULOSKELETAL: No joint swelling or deformity. EXTREMITIES: No cyanosis, clubbing, or pedal edema. -NEUROLOGICAL: Gross neurological examination did not reveal any focal deficits. Chronic left hemiparesis SKIN: No rashes. No petechiae - Labs CBC & Chem 7: 04/30/21 07:41 05/01/21 07:32 Labs: Abnormal Lab Results - Last 24 Hours (Table) 05/01/21 05/01/21 Range/Units 06:08 07:32 Potassium 3.1 L (3.5-5.1) mmol/L Chloride 96 L (98-107) mmol/L Carbon Dioxide 33 H (22-30) mmol/L POC Glucose (mg/dL) 102 H (75-99) mg/dL Assessment and Plan Assessment: Acute on chronic diastolic CHF with ejection fraction of 60-65% Acute hypoxic respiratory failure secondary to above the top of chronic respiratory failure Dysphagia, patient failed swallow evaluation Rule out aspiration pneumonia Hypertension Diabetes mellitus Paroxysmal atrial fibrillation, on Eliquis Area of CVA 3 History of seizure disorder History of recurrent UTI Plan: This is a pleasant 65 years old female is with CHF exacerbation. Continue with Lasix intravenously. Monitor creatinine and electrolytes. Monitor input and output area to place patient on fluid restriction Project Manager Industrial Evaluated the patient Place on dysphagia diet Labs and medication were reviewed.. Continue same treatment. Continue with symptomatic treatment. Resume home medication. Monitor lytes and vitals. DVT and GI prophylaxis. Further recommendationsas per clinical course of the patient DVT prophylaxis:Lovenox GI Prophylaxis: Pepcid PT/OT: Pending Patient prognosis is poor and if she does not improve we may consider more comfortable measures with the family, also patient currently is full code. The family about the CODE STATUS
[2021-05-01 16:58] LABS: Glucose,Whole Blood 115 mg/dL (75-99)
[2021-05-01 20:06] LABS: Glucose,Whole Blood 189 mg/dL (75-99)
[2021-05-02] MEDS: hydrALAZINE HCL 20 MG/ML 1 ML VIAL IVP SCH ×3 (06:20→16:24)
[2021-05-02 06:24] LABS: Glucose,Whole Blood 104 mg/dL (75-99)
[2021-05-02] MEDS: INSULIN ASPART (NovoLOG) 100 UNIT/ML VIAL SQ SCH ×4 (06:40→20:30)
[2021-05-02 08:00] LABS: African American GFR (CKD) >90 (>60 ml/min/1.73 sqM); Anion Gap 5 mmol/L; Blood Urea Nitrogen 13 mg/dL (7-17); Carbon Dioxide 37 mmol/L (22-30); Chloride 94 mmol/L (98-107); Glucose 89 mg/dL (74-99); Magnesium 1.5 mg/dL (1.6-2.3); Non-African American GFR(CKD) >90 (>60 ml/min/1.73 sqM); Potassium 3.3 mmol/L (3.5-5.1); Sodium 136 mmol/L (137-145)
[2021-05-02] MEDS: levETIRAcetam IV 1,000 MG in SALINE 1 100ML.BAG IVPB SCH ×2 (08:41→20:29)
[2021-05-02] MEDS: FAMOTIDINE 20 MG/2 ML VIAL IV SCH ×2 (08:41→20:30)
[2021-05-02] MEDS: FUROSEMIDE 10 MG/ML 4 ML VIAL IV SCH ×2 (08:41→20:30)
[2021-05-02] MEDS: ENOXAPARIN 100 MG/ML SYRINGE SQ SCH ×2 (08:41→20:30)
[2021-05-02] MEDS: MAGNESIUM SULFATE-D5W PMX 1 GM in DEXTROSE/WATER 1 100ML.BAG IVPB SCH ×2 (09:21→10:36)
[2021-05-02] MEDS: PIPERACILLIN-TAZOBACTAM 3.375 GM in SODIUM CHLORIDE 0.9% 100 ML IVPB SCH ×2 (09:21→16:22)
--- NOTE | 2021-05-02 11:13 | P.PN ---
Subjective This is a pleasant 65 years old female with past medical history of upper tension, diabetes mellitus, atrial fibrillation, CVA, seizure disorder, left- sided hemiparesis, vascular dementia recurrent UTI. Patient was brought by family and daughter to emergency room because she was hypoxic saturating 89% on 10 L oxygen. Usually she has chronic hypoxia on 5 L oxygen per minute at home. Patient can of poor historian and information was provided by the patient and daughter at bedside. And developed hypoxia and shortness of breath of one-day duration so she brought her to the hospital. She has history of stroke and left side hemiparesis. Also recently patient diet change to soft diet. Patient complaining of from cough with no significant phlegm. No chest pain. No abdominal pain or diarrhea. No change in frequency. She is little more drowsy than usual. But she answers most of the questions appropriately, and sometimes she keep quiet and just does not answer the question Currently she is saturating 92% on 9 L oxygen via nasal cannula. Patient is afebrile. CBC, BMP and liver enzymes are unremarkable. Negative less than 0.012. He is only mildly elevated at 4720 magnesium is low at 1.2 which is been replaced Chest x-ray showing moderately severe congestive heart failure with significant increased pulmonary edema compared to old exam. EKG showing sinus bradycardia at 59 with T-wave inversion on lateral limits. QTC is 411 Patient currently is on Lasix 60 mg twice daily Echocardiogram on 12/2020 showed ejection fraction of 55-60%. No significant lower disease 04/27/2021 Patient today is lethargic and still hypoxic at 8 L oxygen via nasal cannula. She was admitted for seed acute diastolic CHF and she is on IV Lasix 40 mg twice daily Today regarding to repeat the chest x-ray also with check a pro-calcitonin is e levated at 18 antibiotics Also patient failed swallow evaluation today and her oral medication were placed to IV, patient is currently nothing by mouth. It Business Systems Analyst following the patient as well 04/28/2021 Today patient is more awake and sitting up in bed, eating is easier today, she still hypoxic but her oxygen requirement improved down to 6 L/m. Patient was placed nothing by mouth yesterday and repeat swallow evaluation today was still suspected aspiration, placed which her diet to ground diet. Her blood pressure is controlled with IV hydralazine, but she got one-time dose of 10 mg therefore we will lower the dose to 5 mg every 6 hours. Mildly low potassium is been replaced. Per protocol. She remains on IV Lasix 40 mg twice a day and she was placed on therapeutic dose Lovenox 100 mg twice a day. She has good urine output more than 1000 L today. There is no evidence of infection so far, leukocytosis, no fever. Pro-calcitonin is still pending 04/29/2021 Patient this morning was more sleepy and her oxygen saturation was 90s on 7 liters per minute oxygen, she is mildly bradycardic and aggressive vitals are stable and blood pressure 118/72. Later on her oxygen requirements came down to half liter per minute Chest x-ray showing CHF and pneumonia cannot be excluded. CBC is unremarkable with stable hemoglobin. Patient yesterday swallow evaluation and tube feeding was discontinued and patient is back to oral medication. Also Augmentin therapy to dose was added. Patient currently on IV Lasix 40 mg twice daily with creatinine normal. 04/30/2021 Patient this morning was more sleepy, poorly responsive to verbal or tactile stimuli. She did not open eyes, she does not follow commands and she did not answer questions. Her vitals looks stable and afebrile. CT of the brain showing no acute process, difficult to exclude normal pressure hydrocephalus Showing bilateral CHF, pneumonia cannot be excluded patient difficulty eating with fissure medication to IV doses again 05/01/2021 Patient is more awake today after stopping her benzodiazepines and trazodone, she is more interactive and follows commands. Her diet was resumed as dysphagia level II with ground diet, keep head of the bit more than 45. Her oxygen saturation and requirement is back to baseline, home she is on 5 L oxygen via nasal cannula and currently she is on 6 L saturating 97% to 98% Electrolytes replaced per protocol for example potassium we will keep her medication IV for now Keep the patient on Zosyn, IV Lasix Possible discharge on Monday05/02/2021 Patient is more awake and alert after discontinuing her benzodiazepines and trazodone, she is more appropriate mentally today. Her oxygen saturation is 6 L per minute is 99%, we can bring her oxygen delivery to her baseline of 5 L/m and discussed with staff Low magnesium and potassium secondary to Lasix is been replaced. She remains on Zosyn for possible aspiration and tomorrow can be switched to Augmentin At this bit more than 45 Discussed with staff Possible discharge in 24-48 hours if she keeps improvement Objective - Vital Signs Vital signs: Vital Signs Temp 99.1 F 05/02/21 07:20 Pulse 58 L 05/02/21 07:20 Resp 18 05/02/21 07:20 BP 128/60 05/02/21 07:20 Pulse Ox 99 05/02/21 07:20 Intake & Output 05/01/21 05/02/21 05/02/21 18:59 06:59 18:59 Intake Total 240 580 60 Output Total 650 1500 Balance -410 -920 60 Weight 88.5 kg Intake: Oral 240 580 60 Output: Urine 650 1500 Other: Voiding Method External Catheter External Catheter External Catheter # Bowel Movements 0 1 - Exam -GENERAL: The patient is lethargic and sleepy, not in any acute distress. Well developed, well nourished. HEENT: Pupils are round and equally reacting to light. EOMI. No scleral icterus. No conjunctival pallor. Normocephalic, atraumatic. No pharyngeal erythema. No thyromegaly. CARDIOVASCULAR: S1 and S2 present. No murmurs, rubs, or gallops. -PULMONARY: Chest is clear to auscultation, no wheezing Bilateral basal crepitation ABDOMEN: Soft, nontender, nondistended, normoactive bowel sounds. No palpable organomegaly. MUSCULOSKELETAL: No joint swelling or deformity. EXTREMITIES: No cyanosis, clubbing, or pedal edema. -NEUROLOGICAL: Gross neurological examination did not reveal any focal deficits. Chronic left hemiparesis SKIN: No rashes. No petechiae - Labs CBC & Chem 7: 04/30/21 07:41 05/02/21 07:05 Labs: Abnormal Lab Results - Last 24 Hours (Table) 05/01/21 05/01/21 05/02/21 Range/Units 16:56 20:04 06:22 Sodium (137-145) mmol/L Potassium (3.5-5.1) mmol/L Chloride (98-107) mmol/L Carbon Dioxide (22-30) mmol/L POC Glucose (mg/dL) 115 H 189 H 104 H (75-99) mg/dL Magnesium (1.6-2.3) mg/dL 05/02/21 Range/Units 07:05 Sodium 136 L (137-145) mmol/L Potassium 3.3 L (3.5-5.1) mmol/L Chloride 94 L (98-107) mmol/L Carbon Dioxide 37 H (22-30) mmol/L POC Glucose (mg/dL) (75-99) mg/dL Magnesium 1.5 L (1.6-2.3) mg/dL Assessment and Plan Assessment: Acute on chronic diastolic CHF with ejection fraction of 60-65% Acute hypoxic respiratory failure secondary to above the top of chronic respiratory failure Dysphagia, patient failed swallow evaluation Rule out aspiration pneumonia Hypertension Diabetes mellitus Paroxysmal atrial fibrillation, on Eliquis Area of CVA 3 History of seizure disorder History of recurrent UTI Plan: This is a pleasant 65 years old female is with CHF exacerbation. Continue with Lasix intravenously. Monitor creatinine and electrolytes. Monitor input and output area to place patient on fluid restriction It Business Systems Analyst Evaluated the patient Place on dysphagia diet Labs and medication were reviewed.. Continue same treatment. Continue with symptomatic treatment. Resume home medication. Monitor lytes and vitals. DVT and GI prophylaxis. Further recommendationsas per clinical course of the patient DVT prophylaxis:Lovenox GI Prophylaxis: Pepcid PT/OT: Pending Patient prognosis is poor and if she does not improve we may consider more comfortable measures with the family, also patient currently is full code. The family about the CODE STATUS
[2021-05-02] MEDS: POTASSIUM CHLORIDE 10 MEQ in WATER FOR INJECTION 1 100ML.BAG IVPB SCH ×4 (11:45→14:53)
[2021-05-02 12:18] LABS: Glucose,Whole Blood 122 mg/dL (75-99)
[2021-05-02 16:40] LABS: Glucose,Whole Blood 108 mg/dL (75-99)
[2021-05-02 19:57] LABS: Glucose,Whole Blood 131 mg/dL (75-99)
[2021-05-03] MEDS: hydrALAZINE HCL 20 MG/ML 1 ML VIAL IVP SCH ×5 (01:11→23:33)
[2021-05-03] MEDS: PIPERACILLIN-TAZOBACTAM 3.375 GM in SODIUM CHLORIDE 0.9% 100 ML IVPB SCH ×2 (01:13→08:34)
[2021-05-03 06:11] LABS: Glucose,Whole Blood 111 mg/dL (75-99)
[2021-05-03] MEDS: INSULIN ASPART (NovoLOG) 100 UNIT/ML VIAL SQ SCH ×4 (06:38→21:30)
[2021-05-03 08:02] LABS: African American GFR (CKD) >90 (>60 ml/min/1.73 sqM); Anion Gap 8 mmol/L; Blood Urea Nitrogen 13 mg/dL (7-17); Calcium 9.5 mg/dL (8.4-10.2); Carbon Dioxide 33 mmol/L (22-30); Chloride 93 mmol/L (98-107); Glucose 94 mg/dL (74-99); Non-African American GFR(CKD) >90 (>60 ml/min/1.73 sqM); Sodium 134 mmol/L (137-145)
[2021-05-03 08:13] LABS: Magnesium 1.6 mg/dL (1.6-2.3)
[2021-05-03] MEDS: ENOXAPARIN 100 MG/ML SYRINGE SQ SCH ×2 (08:33→21:30)
[2021-05-03] MEDS: FAMOTIDINE 20 MG/2 ML VIAL IV SCH ×2 (08:33→21:30)
[2021-05-03] MEDS: levETIRAcetam IV 1,000 MG in SALINE 1 100ML.BAG IVPB SCH ×2 (08:33→21:30)
[2021-05-03] MEDS: FUROSEMIDE 10 MG/ML 4 ML VIAL IV SCH ×2 (08:33→21:30)
[2021-05-03 11:28] LABS: Glucose,Whole Blood 108 mg/dL (75-99)
--- NOTE | 2021-05-03 12:35 | P.PN ---
Subjective This is a pleasant 65 years old female with past medical history of upper tension, diabetes mellitus, atrial fibrillation, CVA, seizure disorder, left- sided hemiparesis, vascular dementia recurrent UTI. Patient was brought by family and daughter to emergency room because she was hypoxic saturating 89% on 10 L oxygen. Usually she has chronic hypoxia on 5 L oxygen per minute at home. Patient can of poor historian and information was provided by the patient and daughter at bedside. And developed hypoxia and shortness of breath of one-day duration so she brought her to the hospital. She has history of stroke and left side hemiparesis. Also recently patient diet change to soft diet. Patient complaining of from cough with no significant phlegm. No chest pain. No abdominal pain or diarrhea. No change in frequency. She is little more drowsy than usual. But she answers most of the questions appropriately, and sometimes she keep quiet and just does not answer the question Currently she is saturating 92% on 9 L oxygen via nasal cannula. Patient is afebrile. CBC, BMP and liver enzymes are unremarkable. Negative less than 0.012. He is only mildly elevated at 4720 magnesium is low at 1.2 which is been replaced Chest x-ray showing moderately severe congestive heart failure with significant increased pulmonary edema compared to old exam. EKG showing sinus bradycardia at 59 with T-wave inversion on lateral limits. QTC is 411 Patient currently is on Lasix 60 mg twice daily Echocardiogram on 12/2020 showed ejection fraction of 55-60%. No significant lower disease 04/27/2021 Patient today is lethargic and still hypoxic at 8 L oxygen via nasal cannula. She was admitted for seed acute diastolic CHF and she is on IV Lasix 40 mg twice daily Today regarding to repeat the chest x-ray also with check a pro-calcitonin is e levated at 18 antibiotics Also patient failed swallow evaluation today and her oral medication were placed to IV, patient is currently nothing by mouth. Vision Teacher following the patient as well 04/28/2021 Today patient is more awake and sitting up in bed, eating is easier today, she still hypoxic but her oxygen requirement improved down to 6 L/m. Patient was placed nothing by mouth yesterday and repeat swallow evaluation today was still suspected aspiration, placed which her diet to ground diet. Her blood pressure is controlled with IV hydralazine, but she got one-time dose of 10 mg therefore we will lower the dose to 5 mg every 6 hours. Mildly low potassium is been replaced. Per protocol. She remains on IV Lasix 40 mg twice a day and she was placed on therapeutic dose Lovenox 100 mg twice a day. She has good urine output more than 1000 L today. There is no evidence of infection so far, leukocytosis, no fever. Pro-calcitonin is still pending 04/29/2021 Patient this morning was more sleepy and her oxygen saturation was 90s on 7 liters per minute oxygen, she is mildly bradycardic and aggressive vitals are stable and blood pressure 118/72. Later on her oxygen requirements came down to half liter per minute Chest x-ray showing CHF and pneumonia cannot be excluded. CBC is unremarkable with stable hemoglobin. Patient yesterday swallow evaluation and tube feeding was discontinued and patient is back to oral medication. Also Augmentin therapy to dose was added. Patient currently on IV Lasix 40 mg twice daily with creatinine normal. 04/30/2021 Patient this morning was more sleepy, poorly responsive to verbal or tactile stimuli. She did not open eyes, she does not follow commands and she did not answer questions. Her vitals looks stable and afebrile. CT of the brain showing no acute process, difficult to exclude normal pressure hydrocephalus Showing bilateral CHF, pneumonia cannot be excluded patient difficulty eating with fissure medication to IV doses again 05/01/2021 Patient is more awake today after stopping her benzodiazepines and trazodone, she is more interactive and follows commands. Her diet was resumed as dysphagia level II with ground diet, keep head of the bit more than 45. Her oxygen saturation and requirement is back to baseline, home she is on 5 L oxygen via nasal cannula and currently she is on 6 L saturating 97% to 98% Electrolytes replaced per protocol for example potassium we will keep her medication IV for now Keep the patient on Zosyn, IV Lasix Possible discharge on Monday05/02/2021 Patient is more awake and alert after discontinuing her benzodiazepines and trazodone, she is more appropriate mentally today. Her oxygen saturation is 6 L per minute is 99%, we can bring her oxygen delivery to her baseline of 5 L/m and discussed with staff Low magnesium and potassium secondary to Lasix is been replaced. She remains on Zosyn for possible aspiration and tomorrow can be switched to Augmentin At this bit more than 45 Discussed with staff 05/03/2021 Patient is getting more awake today and alert. She is hemodynamically stable, she still on 6 L oxygen via nasal cannula compared to baseline of 5 L She still has some gurgling sounds and basal crepitation potassium and magnesium were normal She is on dysphagia Diet and tolerated that well Patient is on furosemide 40 mg IV twice a day We'll continue Lasix and she might benefit from 1 or 2 more days of IV Lasix Objective - Vital Signs Vital signs: Vital Signs Temp 98.5 F 05/03/21 12:11 Pulse 57 L 05/03/21 12:11 Resp 18 05/03/21 12:11 BP 142/63 05/03/21 12:11 Pulse Ox 97 05/03/21 12:11 Intake & Output 05/02/21 05/03/21 05/03/21 18:59 06:59 18:59 Intake Total 980 180 Output Total 1000 1800 400 Balance -20 1800 -220 Weight 89 kg Intake: Intake, IV Titration 800 Amount Magnesium Sulfate-D5w Pmx 200 1 gm In Dextrose/Water 1 100ml.bag @ 100 mls/hr IVPB Q1H [facility] Rx#: [id number] Piperacillin-Tazobactam 3 100 .375 gm In Sodium Chloride 0.9% 100 ml @ 25 mls/hr IVPB Q8HR [facility] Rx# :[id number] Potassium Chloride 10 meq 400 In Water For Injection 1 100ml.bag @ 100 mls/hr IVPB Q1HR [facility] Rx#: [id number] levETIRAcetam IV 1,000 mg 100 In Saline 1 100ml.bag @ 400 mls/hr IVPB BID [facility] Rx#:[id number] Oral 180 180 Output: Urine 1000 1800 400 Other: Voiding Method External Catheter External Catheter External Catheter # Bowel Movements 1 - Exam -GENERAL: The patient is lethargic and sleepy, not in any acute distress. Well developed, well nourished. HEENT: Pupils are round and equally reacting to light. EOMI. No scleral icterus. No conjunctival pallor. Normocephalic, atraumatic. No pharyngeal erythema. No thyromegaly. CARDIOVASCULAR: S1 and S2 present. No murmurs, rubs, or gallops. -PULMONARY: Chest is clear to auscultation, no wheezing Bilateral basal crepitation ABDOMEN: Soft, nontender, nondistended, normoactive bowel sounds. No palpable organomegaly. MUSCULOSKELETAL: No joint swelling or deformity. EXTREMITIES: No cyanosis, clubbing, or pedal edema. -NEUROLOGICAL: Gross neurological examination did not reveal any focal deficits. Chronic left hemiparesis SKIN: No rashes. No petechiae - Labs CBC & Chem 7: 04/30/21 07:41 05/03/21 07:16 Labs: Abnormal Lab Results - Last 24 Hours (Table) 05/02/21 05/02/21 05/03/21 Range/Units 16:37 19:55 06:09 Sodium (137-145) mmol/L Chloride (98-107) mmol/L Carbon Dioxide (22-30) mmol/L POC Glucose (mg/dL) 108 H 131 H 111 H (75-99) mg/dL 05/03/21 05/03/21 Range/Units 07:16 11:27 Sodium 134 L (137-145) mmol/L Chloride 93 L (98-107) mmol/L Carbon Dioxide 33 H (22-30) mmol/L POC Glucose (mg/dL) 108 H (75-99) mg/dL Assessment and Plan Assessment: Acute on chronic diastolic CHF with ejection fraction of 60-65% Acute hypoxic respiratory failure secondary to above the top of chronic respiratory failure Dysphagia, patient failed swallow evaluation Rule out aspiration pneumonia Hypertension Diabetes mellitus Paroxysmal atrial fibrillation, on Eliquis Area of CVA 3 History of seizure disorder History of recurrent UTI Plan: This is a pleasant 65 years old female is with CHF exacerbation. Continue with Lasix intravenously. Monitor creatinine and electrolytes. Monitor input and output area to place patient on fluid restriction Vision Teacher Evaluated the patient Place on dysphagia diet Labs and medication were reviewed.. Continue same treatment. Continue with symptomatic treatment. Resume home medication. Monitor lytes and vitals. DVT and GI prophylaxis. Further recommendationsas per clinical course of the patient DVT prophylaxis:Lovenox GI Prophylaxis: Pepcid PT/OT: Pending Patient prognosis is poor and if she does not improve we may consider more comfortable measures with the family, also patient currently is full code. The family about the CODE STATUS
[2021-05-03] MEDS ORDERED: MAGNESIUM SULFATE-D5W PMX 1 GM in DEXTROSE/WATER 1 100ML.BAG IVPB ONE (13:00)
--- NOTE | 2021-05-03 14:10 | P.CNPUL ---
History of Present Illness Consult date: 05/03/21 Reason for consult: dyspnea, hypoxemia Chief complaint: Shortness of breath History of present illness: Patient seen eval reexamined, and data mostly obtained from the chart and daughter is present at bedside, patient is back on 5 L nasal cannula shortness of breath stable, She was presented in emergency department for evaluation of decreased oxygen saturation. Family member state the patient has been having to wear oxygen since November after a CHF exacerbation. States that she generally wears 5 L on her concentrator and maintained oxygen 94%. On day of admission on 5 L she was down in the 60s. States he did switch her over to the tanks and increase her to 10 L and she remained low in 80s with more lethargichistory of any fever or chills. Patient denies any nausea or vomiting. Denies any diarrhea. Denies any significant cough. Workup and evaluation revealed stable anemia normal renal functions, potassium of 3.3 white cell count 5.2, chest x-ray consistent with pulmonary edema and CHF patient was admitted to hospital for CHF exacerbation with therapy Patient is getting more awake today and alert. She is hemodynamically stable, she back on 6 L oxygen via nasal cannula compared to baseline of 5 L She still has some gurgling sounds and basal crepitation potassium and magnesium were normal, She is on Diet and tolerated that well , Patient is on furosemide 40 mg IV twice a day, her oxygen is 97% remains afebrile with hemodynamics stable, her past medical history significant for a chronic diastolic heart failure with acute exacerbation baseline ejection fraction 60-65%, chronic hypoxic history failure on supplemental oxygen, chronic dysphagia, hypertension hypertensive cardiovascular disease, proximal atrial fibrillation on direct antiglobulin, hypertension hypertensive cardiovascular disease, history of multiple CVAs, seizure disorder, recurrent UTI Review of Systems ROS unobtainable: due to mental status Past Medical History Past Medical History: Atrial Fibrillation, CVA/TIA, Diabetes Mellitus, Hy pertension, Pneumonia, Seizure Disorder, Vascular Disorder Additional Past Medical History / Comment(s): Paroxysmal Afib, CVA x3 with L sided paralysis, TIA, NIDDM type II, vascular dementia, sacral ulcer-healing but just reopened slightly, past L thigh ulcer, UTIs, UTI with sepsis, incontinence at times, seizure d/t reaction to antibiotic in 2020 per gian, hyponatremia, hy pomagnesemia, possible CHF-gian states they were told yes/no about chf in past, anemia. History of Any Multi-Drug Resistant Organisms: ESBL, MRSA Date of last positivie culture/infection: 04/08/20 MRSA 12/09/20 ESBL MDRO Source:: MRSA BUTTOCK/ ESBL URINE Past Surgical History: Tubal Ligation Additional Past Surgical History / Comment(s): Arch study, L caratid endartectomy, loop recorder Past Anesthesia/Blood Transfusion Reactions: No Reported Reaction Type of Cardiac Device: Loop Past Psychological History: Depression Smoking Status: Former smoker Past Alcohol Use History: None Reported Past Drug Use History: None Reported - Past Family History Brother(s) Family Medical History: No Reported History Sister(s) Family Medical History: Diabetes Mellitus Additional Family Medical History / Comment(s): RENAL FAILURE, ABCESSES Mother Family Medical History: Vascular Disorder Additional Family Medical History / Comment(s): Brain Aneurism. Father Family Medical History: Diabetes Mellitus Medications and Allergies Home Medications Medication Instructions Recorded Confirmed Type Atorvastatin [Lipitor] 80 mg PO HS 03/22/19 04/25/21 History Losartan Potassium 100 mg PO DAILY 03/22/19 04/25/21 History Citalopram Hydrobromide [CeleXA] 40 mg PO DAILY 07/06/19 04/25/21 History carvediloL [Coreg] 6.25 mg PO BID-W/MEALS 30 Days #60 01/20/20 04/25/21 Rx tab hydrALAZINE HCL [Apresoline] 50 mg PO TID@0800,1200,2000 03/05/20 04/25/21 History Apixaban [Eliquis] 5 mg PO BID tab 03/31/20 04/25/21 Rx amLODIPine [Norvasc] 10 mg PO DAILY 12/08/20 04/25/21 History levETIRAcetam [Keppra] 1,000 mg PO Q12HR 12/08/20 04/25/21 History metFORMIN HCL [Glucophage] 500 mg PO BID-W/MEALS 12/08/20 04/25/21 History ALPRAZolam [Xanax] 0.5 mg PO DAILY 04/25/21 04/25/21 History Furosemide [Lasix] 20 mg PO BID 04/25/21 04/25/21 History traZODone HCL 100 mg PO HS 04/25/21 04/25/21 History Allergies Allergy/AdvReac Type Severity Reaction Status Date / Time lorazepam [From Ativan] Allergy Unknown Verified 04/25/21 23:13 Physical Exam Vitals: Vital Signs Temp Pulse Resp BP Pulse Ox 05/03/21 13:33 57 L 18 05/03/21 12:11 98.5 F 57 L 18 142/63 97 05/03/21 08:29 98.6 F 63 18 159/70 97 05/03/21 08:00 63 18 05/03/21 04:00 98.0 F 62 20 136/70 98 05/03/21 02:00 60 19 05/03/21 00:00 98.1 F 60 19 137/69 99 05/02/21 20:00 98.2 F 57 L 18 146/65 98 05/02/21 15:52 98.3 F 60 18 122/60 91 L Intake and Output 05/02/21 05/03/21 05/03/21 22:59 06:59 14:59 Intake Total 120 240 Output Total 700 1100 400 Balance -580 -1100 -160 Intake: Oral 120 240 Output: Urine 700 1100 400 Other: Voiding Method External Catheter External Catheter External Catheter Weight 89 kg - Constitutional General appearance: average body habitus, cooperative, disheveled - EENT Eyes: EOMI, PERRLA ENT: normal oropharynx Ears: bilateral: normal - Neck Neck: normal ROM Carotids: bilateral: upstroke normal - Respiratory Respiratory: bilateral: diminished - Cardiovascular Rhythm: regular Heart sounds: normal: S1, S2 - Gastrointestinal General gastrointestinal: normal bowel sounds - Neurologic Neurologic: CNII-XII intact - Musculoskeletal Musculoskeletal: generalized weakness - Psychiatric Psychiatric: A&O x's 3 Results - Laboratory Findings CBC and BMP: 04/30/21 07:41 05/03/21 07:16 PT/INR, D-dimer PT 11.9 sec (9.0-12.0) 04/25/21 20:02 INR 1.1 (<1.2) 04/25/21 20:02 Abnormal lab findings: Abnormal Labs 04/25/21 04/25/21 04/26/21 20:02 20:02 06:20 RBC 3.33 L Hgb 8.4 L Hct 26.0 L MCV 78.2 L MCH MCHC RDW Lymphocytes # Sodium Potassium 3.3 L Chloride 97 L Carbon Dioxide 38 H BUN 23 H Glucose 105 H POC Glucose (mg/dL) 141 H Magnesium AST Total Protein 6.0 L Albumin 3.2 L Procalcitonin 04/26/21 04/26/21 04/26/21 07:33 07:33 11:49 RBC 3.12 L Hgb 7.9 L Hct 25.1 L MCV MCH MCHC RDW Lymphocytes # 0.6 L Sodium Potassium Chloride 96 L Carbon Dioxide 34 H BUN 25 H Glucose 137 H POC Glucose (mg/dL) 158 H Magnesium 1.2 L AST Total Protein Albumin Procalcitonin 04/26/21 04/26/21 04/27/21 17:10 20:55 02:22 RBC Hgb Hct MCV MCH MCHC RDW Lymphocytes # Sodium Potassium Chloride Carbon Dioxide BUN Glucose POC Glucose (mg/dL) 115 H 123 H Magnesium AST Total Protein Albumin Procalcitonin 0.19 H 04/27/21 04/27/21 04/27/21 02:22 02:22 11:55 RBC 3.52 L Hgb 8.6 L Hct 29.1 L MCV MCH 24.6 L MCHC 29.8 L RDW 15.6 H Lymphocytes # Sodium Potassium Chloride 97 L Carbon Dioxide 32 H BUN 25 H Glucose 142 H POC Glucose (mg/dL) 118 H Magnesium 1.3 L AST Total Protein Albumin Procalcitonin 04/27/21 04/27/21 04/28/21 16:45 21:12 06:13 RBC Hgb Hct MCV MCH MCHC RDW Lymphocytes # Sodium Potassium Chloride Carbon Dioxide BUN Glucose POC Glucose (mg/dL) 108 H 107 H 101 H Magnesium AST Total Protein Albumin Procalcitonin 04/28/21 04/28/21 04/28/21 06:57 07:11 07:11 RBC Hgb 9.4 L Hct 31.8 L MCV MCH 24.3 L MCHC 29.5 L RDW Lymphocytes # Sodium Potassium 3.3 L Chloride 96 L Carbon Dioxide 37 H BUN 23 H Glucose POC Glucose (mg/dL) Magnesium AST 42 H Total Protein Albumin Procalcitonin 0.14 H 04/28/21 04/28/21 04/28/21 12:39 12:48 21:00 RBC Hgb Hct MCV MCH MCHC RDW Lymphocytes # Sodium Potassium Chloride Carbon Dioxide BUN Glucose POC Glucose (mg/dL) 124 H 121 H Magnesium AST Total Protein Albumin Procalcitonin 0.13 H 04/29/21 04/29/21 04/29/21 06:41 09:44 11:56 RBC Hgb Hct MCV MCH MCHC RDW Lymphocytes # Sodium 135 L Potassium Chloride 95 L Carbon Dioxide 36 H BUN 19 H Glucose POC Glucose (mg/dL) 101 H 109 H Magnesium AST Total Protein Albumin Procalcitonin 04/29/21 04/30/21 04/30/21 17:00 07:41 07:41 RBC 3.39 L Hgb 8.3 L Hct 28.1 L MCV MCH 24.5 L MCHC 29.5 L RDW Lymphocytes # Sodium 136 L Potassium Chloride 97 L Carbon Dioxide 37 H BUN 18 H Glucose 72 L POC Glucose (mg/dL) 101 H Magnesium 1.5 L AST Total Protein Albumin Procalcitonin 05/01/21 05/01/21 05/01/21 06:08 07:32 16:56 RBC Hgb Hct MCV MCH MCHC RDW Lymphocytes # Sodium Potassium 3.1 L Chloride 96 L Carbon Dioxide 33 H BUN Glucose POC Glucose (mg/dL) 102 H 115 H Magnesium AST Total Protein Albumin Procalcitonin 05/01/21 05/02/21 05/02/21 20:04 06:22 07:05 RBC Hgb Hct MCV MCH MCHC RDW Lymphocytes # Sodium 136 L Potassium 3.3 L Chloride 94 L Carbon Dioxide 37 H BUN Glucose POC Glucose (mg/dL) 189 H 104 H Magnesium 1.5 L AST Total Protein Albumin Procalcitonin 05/02/21 05/02/21 05/02/21 12:17 16:37 19:55 RBC Hgb Hct MCV MCH MCHC RDW Lymphocytes # Sodium Potassium Chloride Carbon Dioxide BUN Glucose POC Glucose (mg/dL) 122 H 108 H 131 H Magnesium AST Total Protein Albumin Procalcitonin 05/03/21 05/03/21 05/03/21 06:09 07:16 11:27 RBC Hgb Hct MCV MCH MCHC RDW Lymphocytes # Sodium 134 L Potassium Chloride 93 L Carbon Dioxide 33 H BUN Glucose POC Glucose (mg/dL) 111 H 108 H Magnesium AST Total Protein Albumin Procalcitonin - Diagnostic Findings Chest x-ray: report reviewed, image reviewed (Last chest x-ray performed on the April 30 consistent with bilateral tiny effusion basal atelectasis and cardiomegaly along with pulmonary vascular congestion consistent with congestive heart failure) Assessment and Plan Assessment: Acute on chronic hypoxic respiratory failure Acute exacerbation of diastolic heart failure Acute pulmonary edema Acute on Chronic hypokalemia Generalized weakness and medical debility due to multiple CVAs Paroxysmal atrial fibrillation Hypertension hypertensive heart disease Plan: Agree with gentle diuresis Continue supplemental oxygen Deep breathing exercise incentive spirometry Aspiration precautions Further plan of care as per clinical response of patient Time with Patient: Greater than 30
[2021-05-03 16:44] LABS: Glucose,Whole Blood 137 mg/dL (75-99)
[2021-05-03 19:41] LABS: Glucose,Whole Blood 171 mg/dL (75-99)
[2021-05-03] MEDS: AMOXIC-POT CLAV 500-125 MG 1 EACH TAB PO SCH (21:30)
[2021-05-04 06:09] LABS: Glucose,Whole Blood 98 mg/dL (75-99)
[2021-05-04] MEDS: INSULIN ASPART (NovoLOG) 100 UNIT/ML VIAL SQ SCH ×4 (06:37→20:12)
[2021-05-04] MEDS: hydrALAZINE HCL 20 MG/ML 1 ML VIAL IVP SCH (06:40)
[2021-05-04] MEDS: carvediloL 6.25 MG TAB PO SCH ×2 (06:47→17:26)
[2021-05-04] MEDS: metFORMIN 500 MG TAB PO SCH ×2 (06:47→17:26)
--- NOTE | 2021-05-04 08:15 | P.PN ---
Subjective Progress Note Date: 05/04/21 Principal diagnosis: Acute on chronic hypoxic respiratory failure Acute exacerbation of diastolic heart failure Acute pulmonary edema Acute on Chronic hypokalemia Generalized weakness and medical debility due to multiple CVAs Paroxysmal atrial fibrillation Hypertension hypertensive heart disease 05/04/2021, patient seen eval examined awake and alert, oxygen is down to 5 L, slowly being tapered down, 96% with stable blood pressure, chest x-ray performed earlier this morning shows tiny effusion with some atelectasis cardiomegaly interstitial edema severity however has improved Patient seen eval reexamined, and data mostly obtained from the chart and daughter is present at bedside, patient is back on 5 L nasal cannula shortness of breath stable, She was presented in emergency department for evaluation of decreased oxygen saturation. Family member state the patient has been having to wear oxygen since November after a CHF exacerbation. States that she generally wears 5 L on her concentrator and maintained oxygen 94%. On day of admission on 5 L she was down in the 60s. States he did switch her over to the tanks and increase her to 10 L and she remained low in 80s with more lethargichistory of any fever or chills. Patient denies any nausea or vomiting. Denies any diarrhea. Denies any significant cough. Workup and evaluation revealed stable anemia normal renal functions, potassium of 3.3 white cell count 5.2, chest x-ray consistent with pulmonary edema and CHF patient was admitted to hospital for CHF exacerbation with therapy Patient is getting more awake today and alert. She is hemodynamically stable, she back on 6 L oxygen via nasal cannula compared to baseline of 5 L She still has some gurgling sounds and basal crepitation potassium and magnesium were normal, She is on Diet and tolerated that well , Patient is on furosemide 40 mg IV twice a day, her oxygen is 97% remains afebrile with hemodynamics stable, her past medical history significant for a chronic diastolic heart failure with acute exacerbation baseline ejection fraction 60-65%, chronic hypoxic history failure on supplemental oxygen, chronic dysphagia, hypertension hypertensive cardiovascular disease, proximal atrial fibrillation on direct antiglobulin, hypertension hypertensive cardiovascular disease, history of multiple CVAs, seizure disorder, recurrent UTI Objective - Vital Signs Vital signs: Vital Signs Temp 98.1 F 05/04/21 04:00 Pulse 60 05/04/21 04:00 Resp 18 05/04/21 04:00 BP 166/73 05/04/21 04:00 Pulse Ox 96 05/04/21 04:00 Intake & Output 05/03/21 05/04/21 05/04/21 18:59 06:59 18:59 Intake Total 300 Output Total 1100 700 Balance -800 -700 Weight 88 kg Intake: Oral 300 Output: Urine 1100 700 Other: Voiding Method External Catheter External Catheter - Exam - Constitutional General appearance: average body habitus, cooperative, disheveled - EENT Eyes: EOMI, PERRLA ENT: normal oropharynx Ears: bilateral: normal - Neck Neck: normal ROM Carotids: bilateral: upstroke normal - Respiratory Respiratory: bilateral: diminished - Cardiovascular Rhythm: regular Heart sounds: normal: S1, S2 - Gastrointestinal General gastrointestinal: normal bowel sounds - Neurologic Neurologic: CNII-XII intact - Musculoskeletal Musculoskeletal: generalized weakness - Psychiatric Psychiatric: A&O x's 3 - Labs CBC & Chem 7: 04/30/21 07:41 05/03/21 07:16 Labs: Abnormal Lab Results - Last 24 Hours (Table) 05/03/21 05/03/21 05/03/21 Range/Units 07:16 11:27 16:42 Sodium 134 L (137-145) mmol/L Chloride 93 L (98-107) mmol/L Carbon Dioxide 33 H (22-30) mmol/L POC Glucose (mg/dL) 108 H 137 H (75-99) mg/dL 05/03/21 Range/Units 19:39 Sodium (137-145) mmol/L Chloride (98-107) mmol/L Carbon Dioxide (22-30) mmol/L POC Glucose (mg/dL) 171 H (75-99) mg/dL Assessment and Plan Assessment: Acute on chronic hypoxic respiratory failure Acute exacerbation of diastolic heart failure Acute pulmonary edema Acute on Chronic hypokalemia Generalized weakness and medical debility due to multiple CVAs Paroxysmal atrial fibrillation Hypertension hypertensive heart disease Plan: Agree with gentle diuresis Continue supplemental oxygen, however continued titrated down as tolerated Deep breathing exercise incentive spirometry Aspiration precautions Further plan of care as per clinical response of patient Time with Patient: Greater than 30
[2021-05-04] MEDS: FAMOTIDINE 20 MG TAB PO SCH ×2 (08:18→20:23)
[2021-05-04] MEDS: amLODIPine 10 MG TAB PO SCH (08:18)
[2021-05-04] MEDS: levETIRAcetam 500 MG TAB PO SCH ×2 (08:18→20:23)
[2021-05-04] MEDS: AMOXIC-POT CLAV 500-125 MG 1 EACH TAB PO SCH ×2 (08:18→20:23)
[2021-05-04] MEDS: APIXABAN 5 MG TAB PO SCH ×2 (08:18→20:23)
[2021-05-04] MEDS: FUROSEMIDE 40 MG TAB PO SCH ×2 (08:19→17:26)
[2021-05-04] MEDS: CITALOPRAM HYDROBROMIDE 20 MG TAB PO SCH (08:19)
[2021-05-04] MEDS: hydrALAZINE HCL 50 MG TAB PO SCH ×3 (08:19→20:24)
[2021-05-04 09:31] LABS: Basophils % (A) 0 %; Eosinophils # (A) 0.1 k/uL (0-0.7); Eosinophils % (A) 2 %; HCT 27.1 % (34.0-46.0); Hypochromasia Marked; Lymphocytes # (A) 1.4 k/uL (1.0-4.8); Lymphocytes % (A) 30 %; MCH 24.2 pg (25.0-35.0); MCHC 29.7 g/dL (31.0-37.0); MCV 81.4 fL (80.0-100.0); Mean Platelet Volume 8.1; Monocytes # (A) 0.3 k/uL (0-1.0); Monocytes % (A) 6 %; Neutrophils # (A) 2.8 k/uL (1.3-7.7); Neutrophils % (A) 59 %; Platelet Count 201 k/uL (150-450); Poikilocytosis Slight; RBC 3.33 m/uL (3.80-5.40); RDW 15.5 % (11.5-15.5); WBC 4.7 k/uL (3.8-10.6)
--- NOTE | 2021-05-04 09:44 | XR ---
EXAMINATION TYPE: XR chest 1V portable DATE OF EXAM: 05/04/2021 COMPARISON: 04/30/2021 HISTORY: Redness of breath TECHNIQUE: Single frontal view of the chest is obtained. FINDINGS: Improving bilateral infiltrate and pleural effusions. Interstitium remains coarsened. No p neumothorax. Heart is prominent. IMPRESSION: Improving bilateral infiltrate and pleural effusion. Interstitium is also slightly impro connie suggestive of improving venous congestion or interstitial pneumonitis.
[2021-05-04 09:56] LABS: ALT 6 U/L (4-34); AST 15 U/L (14-36); African American GFR (CKD) >90 (>60 ml/min/1.73 sqM); Alkaline Phosphatase 59 U/L (38-126); Anion Gap 4 mmol/L; Blood Urea Nitrogen 15 mg/dL (7-17); Calcium 9.1 mg/dL (8.4-10.2); Carbon Dioxide 36 mmol/L (22-30); Chloride 92 mmol/L (98-107); Glucose 84 mg/dL (74-99); Non-African American GFR(CKD) 86 (>60 ml/min/1.73 sqM); Potassium 3.4 mmol/L (3.5-5.1); Sodium 132 mmol/L (137-145); Total Bilirubin 0.6 mg/dL (0.2-1.3); Total Protein 5.7 g/dL (6.3-8.2)
[2021-05-04 12:04] LABS: Glucose,Whole Blood 107 mg/dL (75-99)
[2021-05-04 12:42] VITALS: BMI 35.4
[2021-05-04] MEDS: POTASSIUM CHLORIDE ER 20 MEQ TAB.ER PO SCH (13:34)
[2021-05-04 17:11] LABS: Glucose,Whole Blood 100 mg/dL (75-99)
--- NOTE | 2021-05-04 19:09 | P.PN ---
Subjective Progress Note Date: 05/04/21 Principal diagnosis: Acute on chronic diastolic heart failure with ejection fraction of 60-65% 65-year-old female with significant past medical history of hypertension, diabetes mellitus type 2, atrial fibrillation, CVA/TIA, seizure disorder, left-sided hemiparalysis, vascular dementia, recurrent UTIs. Patient was brought to the hospital due to significant hypoxia, family increase oxygen to 10 L with saturations 88-89% with associated shortness of breath and weakne ss. Patient had extensive diagnostic workup revealing acute on chronic diastolic heart failure with ejection fraction of 60 to a 65 percent, acute hypoxic respiratory failure secondary to chronic respiratory failure, dysphagia, possible aspiration pneumonia, and paroxysmal atrial fibrillation. 05/04/2021 Patient seen and examined at bedside. Patient resting comfortably and upper position in bed with nasal cannula at 5 L maintain oxygen saturations greater than 88%. Patient alert and able to answer questions and neurological baseline. Patient recently had a swallow eval revealing a dysphagia diet, during hospital stay patient has been able to take by mouth Augmentin. Patient's medications have been transitioned to by mouth medications with aspirations precautions. Patient denies any complaints at this time. Objective - Vital Signs Vital signs: Vital Signs Temp 98.6 F 05/04/21 15:40 Pulse 64 05/04/21 15:40 Resp 16 05/04/21 15:40 BP 149/74 05/04/21 15:40 Pulse Ox 99 05/04/21 15:40 Intake & Output 05/03/21 05/04/21 05/04/21 18:59 06:59 18:59 Intake Total 300 260 Output Total 1100 700 3 Balance -800 -700 257 Weight 88 kg 88 kg Intake: Oral 300 260 Output: Urine 1100 700 Stool 3 Other: Voiding Method External Catheter External Catheter External Catheter # Voids 1 - Constitutional General appearance: Present: mild distress - EENT ENT: Present: hard of hearing - Neck Thyroid: bilateral: normal size - Respiratory Respiratory: bilateral: diminished (Anterior and posterior lung clifford) - Cardiovascular Heart rate: 61 Heart sounds: normal: S1, S2 - Peripheral edema foot Peripheral Edema: bilateral: 1+, 2+ leg Peripheral Edema: bilateral: 1+ ankle Peripheral Edema: bilateral: 1+ - Peripheral pulses radial pulse Peripheral Pulses: bilateral: Normal - Gastrointestinal General gastrointestinal: Present: normal bowel sounds - Integumentary Integumentary: Present: pale - Neurologic Neurologic Comment(s): Chronic left hemiparesis Neurologic: Present: CNII-XII intact - Musculoskeletal Musculoskeletal: Present: generalized weakness, left sided weakness - Psychiatric Psychiatric Comment(s): Illogical baseline alert to person - Allied health notes Allied health notes reviewed: nursing - Labs CBC & Chem 7: 05/04/21 07:51 05/04/21 07:51 Labs: Abnormal Lab Results - Last 24 Hours (Table) 05/03/21 05/04/21 05/04/21 Range/Units 19:39 07:51 07:51 RBC 3.33 L (3.80-5.40) m/uL Hgb 8.0 L (11.4-16.0) gm/dL Hct 27.1 L (34.0-46.0) % MCH 24.2 L (25.0-35.0) pg MCHC 29.7 L (31.0-37.0) g/dL Sodium 132 L (137-145) mmol/L Potassium 3.4 L (3.5-5.1) mmol/L Chloride 92 L (98-107) mmol/L Carbon Dioxide 36 H (22-30) mmol/L POC Glucose (mg/dL) 171 H (75-99) mg/dL Total Protein 5.7 L (6.3-8.2) g/dL Albumin 3.0 L (3.5-5.0) g/dL 05/04/21 05/04/21 Range/Units 11:59 17:07 RBC (3.80-5.40) m/uL Hgb (11.4-16.0) gm/dL Hct (34.0-46.0) % MCH (25.0-35.0) pg MCHC (31.0-37.0) g/dL Sodium (137-145) mmol/L Potassium (3.5-5.1) mmol/L Chloride (98-107) mmol/L Carbon Dioxide (22-30) mmol/L POC Glucose (mg/dL) 107 H 100 H (75-99) mg/dL Total Protein (6.3-8.2) g/dL Albumin (3.5-5.0) g/dL - Imaging and Cardiology Chest x-ray: image reviewed Assessment and Plan Assessment: Acute on chronic diastolic heart failure with ejection fraction of 60-65% Acute hypoxic respiratory failure secondary to chronic respiratory failure, and acute on chronic diastolic congestive heart failure with ejection fraction of 60-65% Dysphagia Possible aspiration pneumonia Diabetes mellitus type 2 Hypertension Paroxysmal atrial fibrillation on Eliquis for anticoagulation History of CVA 3 with left-sided hemiparalysis History of seizure disorder History of recurrent UTIs Full code Plan: Acute on chronic diastolic heart failure with ejection fraction of 60-65%; transition diuretics to oral of Lasix 40 mg twice a day Possible aspiration pneumonia continue Augmentin Dysphagia diet and place with aspiration precautions Continue to monitor vital signs and diagnostic testing Continue medical management Further recommendations come based on patient's clinical condition Hopeful discharge to retirement facility within 24-48 hours Time with Patient: Greater than 30
[2021-05-04 20:02] LABS: Glucose,Whole Blood 121 mg/dL (75-99)
[2021-05-04] MEDS ORDERED: ATORVASTATIN 80 MG TAB PO SCH (21:00)
[2021-05-05 06:06] LABS: Glucose,Whole Blood 96 mg/dL (75-99)
[2021-05-05] MEDS: INSULIN ASPART (NovoLOG) 100 UNIT/ML VIAL SQ SCH ×2 (06:31→12:39)
[2021-05-05] MEDS: metFORMIN 500 MG TAB PO SCH (07:00)
[2021-05-05] MEDS: carvediloL 6.25 MG TAB PO SCH (07:00)
[2021-05-05 08:19] LABS: HCT 27.1 % (34.0-46.0); HGB 8.2 gm/dL (11.4-16.0); Hypochromasia Marked; MCHC 30.5 g/dL (31.0-37.0); MCV 81.9 fL (80.0-100.0); Mean Platelet Volume 8.3; Platelet Count 216 k/uL (150-450); Poikilocytosis Slight; RBC 3.31 m/uL (3.80-5.40); RDW 15.5 % (11.5-15.5); WBC 5.2 k/uL (3.8-10.6)
[2021-05-05 08:35] LABS: African American GFR (CKD) >90 (>60 ml/min/1.73 sqM); Anion Gap 3 mmol/L; Blood Urea Nitrogen 17 mg/dL (7-17); Calcium 9.4 mg/dL (8.4-10.2); Carbon Dioxide 35 mmol/L (22-30); Chloride 95 mmol/L (98-107); Glucose 92 mg/dL (74-99); Magnesium 1.6 mg/dL (1.6-2.3); Non-African American GFR(CKD) 82 (>60 ml/min/1.73 sqM); Potassium 3.7 mmol/L (3.5-5.1); Sodium 133 mmol/L (137-145)
[2021-05-05] MEDS ORDERED: ALPRAZolam 0.5 MG TAB PO PRN (09:00)
[2021-05-05] MEDS: CITALOPRAM HYDROBROMIDE 20 MG TAB PO SCH (09:56)
[2021-05-05] MEDS: hydrALAZINE HCL 50 MG TAB PO SCH ×2 (09:56→12:39)
[2021-05-05] MEDS: FUROSEMIDE 40 MG TAB PO SCH (09:56)
[2021-05-05] MEDS: APIXABAN 5 MG TAB PO SCH (09:56)
[2021-05-05] MEDS: FAMOTIDINE 20 MG TAB PO SCH (09:56)
[2021-05-05] MEDS: amLODIPine 10 MG TAB PO SCH (09:56)
[2021-05-05] MEDS: AMOXIC-POT CLAV 500-125 MG 1 EACH TAB PO SCH (10:04)
[2021-05-05 11:59] VITALS: BP 146/68; PULSE 56; RESP 16; TEMP 98.6
[2021-05-05 12:04] LABS: Glucose,Whole Blood 98 mg/dL (75-99)
--- NOTE | 2021-05-05 16:23 | P.PN ---
Subjective Progress Note Date: 05/05/21 Principal diagnosis: Acute on chronic hypoxic respiratory failure Acute exacerbation of diastolic heart failure Acute pulmonary edema Acute on Chronic hypokalemia Generalized weakness and medical debility due to multiple CVAs Paroxysmal atrial fibrillation Hypertension hypertensive heart disease 05/05/2021, patient seen eval examined, chest x-ray reviewed improving infilt rate and effusion noted, white cell count down to 5200, hemoglobin remained stable 8.2, renal functions stable, patient remains afebrile with stable hemodynamics, FiO2 has been decreased to 5 L nasal cannula gradually being titrated down 05/04/2021, patient seen eval examined awake and alert, oxygen is down to 5 L, slowly being tapered down, 96% with stable blood pressure, chest x-ray performed earlier this morning shows tiny effusion with some atelectasis cardiomegaly interstitial edema severity however has improved Patient seen eval reexamined, and data mostly obtained from the chart and daughter is present at bedside, patient is back on 5 L nasal cannula shortness of breath stable, She was presented in emergency department for evaluation of decreased oxygen saturation. Family member state the patient has been having to wear oxygen since November after a CHF exacerbation. States that she generally wears 5 L on her concentrator and maintained oxygen 94%. On day of admission on 5 L she was down in the 60s. States he did switch her over to the tanks and increase her to 10 L and she remained low in 80s with more lethargichistory of any fever or chills. Patient denies any nausea or vomiting. Denies any diarrhea. Denies any significant cough. Workup and evaluation revealed stable anemia normal renal functions, potassium of 3.3 white cell count 5.2, chest x-ray consistent with pulmonary edema and CHF patient was admitted to hospital for CHF exacerbation with therapy Patient is getting more awake today and alert. She is hemodynamically stable, she back on 6 L oxygen via nasal cannula compared to baseline of 5 L She still has some gurgling sounds and basal crepitation potassium and magnesium were normal, She is on Diet and tolerated that well , Patient is on furosemide 40 mg IV twice a day, her oxygen is 97% remains afebrile with hemodynamics stable, her past medical history significant for a chronic diastolic heart failure with acute exacerbation baseline ejection fraction 60-65%, chronic hypoxic history failure on supplemental oxygen, chronic dysphagia, hypertension hypertensive cardiovascular disease, proximal atrial fibrillation on direct antiglobulin, hypertension hypertensive cardiovascular disease, history of multiple CVAs, seizure disorder, recurrent UTI Objective - Vital Signs Vital signs: Vital Signs Temp 98.6 F 05/05/21 11:58 Pulse 56 L 05/05/21 11:58 Resp 16 05/05/21 13:09 BP 146/68 05/05/21 11:58 Pulse Ox 98 05/05/21 11:58 Intake & Output 05/04/21 05/05/21 05/05/21 18:59 06:59 18:59 Intake Total 260 200 Output Total 3 Balance 257 200 Weight 88 kg 84.5 kg Intake: Oral 260 200 Output: Stool 3 Other: Voiding Method External Catheter External Catheter External Catheter # Voids 1 2 2 # Bowel Movements 3 1 - Exam - Constitutional General appearance: average body habitus, cooperative, disheveled - EENT Eyes: EOMI, PERRLA ENT: normal oropharynx Ears: bilateral: normal - Neck Neck: normal ROM Carotids: bilateral: upstroke normal - Respiratory Respiratory: bilateral: diminished - Cardiovascular Rhythm: regular Heart sounds: normal: S1, S2 - Gastrointestinal General gastrointestinal: normal bowel sounds - Neurologic Neurologic: CNII-XII intact - Musculoskeletal Musculoskeletal: generalized weakness - Psychiatric Psychiatric: A&O x's 3 - Labs CBC & Chem 7: 05/05/21 07:38 05/05/21 07:38 Labs: Abnormal Lab Results - Last 24 Hours (Table) 05/04/21 05/04/21 05/04/21 Range/Units 07:51 17:07 20:01 RBC (3.80-5.40) m/uL Hgb (11.4-16.0) gm/dL Hct (34.0-46.0) % MCHC (31.0-37.0) g/dL Sodium (137-145) mmol/L Chloride (98-107) mmol/L Carbon Dioxide (22-30) mmol/L POC Glucose (mg/dL) 100 H 121 H (75-99) mg/dL Levetiracetam 60.4 H (3.0-60.0) ug/mL 05/05/21 05/05/21 Range/Units 07:38 07:38 RBC 3.31 L (3.80-5.40) m/uL Hgb 8.2 L (11.4-16.0) gm/dL Hct 27.1 L (34.0-46.0) % MCHC 30.5 L (31.0-37.0) g/dL Sodium 133 L (137-145) mmol/L Chloride 95 L (98-107) mmol/L Carbon Dioxide 35 H (22-30) mmol/L POC Glucose (mg/dL) (75-99) mg/dL Levetiracetam (3.0-60.0) ug/mL Assessment and Plan Assessment: Acute on chronic hypoxic respiratory failure Acute exacerbation of diastolic heart failure Acute pulmonary edema Acute on Chronic hypokalemia Generalized weakness and medical debility due to multiple CVAs Paroxysmal atrial fibrillation Hypertension hypertensive heart disease Plan: Agree with gentle diuresis Continue supplemental oxygen, however continued titrated down as tolerated Deep breathing exercise incentive spirometry Aspiration precautions Further plan of care as per clinical response of patient Time with Patient: Greater than 30
--- NOTE | 2021-05-05 17:28 | P.DS ---
Providers Date of admission: 04/25/21 21:37 Expected date of discharge: 05/05/21 Attending physician: Rhys Holley Consults: 04/25/21 22:10 Consult Physician Routine Consulting Provider: [facility] Consult Reason/Comments: CHF exacerbation Do you want consulting provider notified?: Yes 04/26/21 12:58 Consult Physician Urgent Consulting Provider: Chuy Payan Consult Reason/Comments: hypoxia Do you want consulting provider notified?: Yes Primary care physician: Rhys Holley Hospital Course: 65-year-old female with significant past medical history of hypertension, diabetes mellitus type 2, atrial fibrillation, CVA/TIA, seizure disorder, left-sided hemiparalysis, vascular dementia, recurrent UTIs. Patient was brought to the hospital due to significant hypoxia, family increase oxygen to 10 L with saturations 88-89% with associated shortness of breath and weakness. Patient had extensive diagnostic workup revealing acute on chronic diastolic heart failure with ejection fraction of 60 to a 65 percent, acute hypoxic respiratory failure secondary to chronic respiratory failure, dysphagia, possible aspiration pneumonia, and paroxysmal atrial fibrillation. Acute on chronic diastolic heart failure with ejection fraction of 60-65% was treated with IV diuretics with improvement in pulmonary congestion Acute hypoxic respiratory failure secondary to chronic respiratory failure was treated with supplemental oxygen and broad-spectrum antibiotics for possible aspiration pneumonia Paroxysmal atrial fibrillation continued anticoagulation therapy Continue home medications for multiple comorbidities Will need follow-up with primary care within 1-2 days Will need a follow-up with cardiology within 1-2 weeks Discussed with patient and daughter regarding multiple comorbidities, and the need for close follow-up, and to return to the emergency department if recurrent symptoms Discharged with guarded prognosis Assessment: Acute on chronic diastolic heart failure with ejection fraction of 60-65% Acute hypoxic respiratory failure secondary to chronic respiratory failure, and acute on chronic diastolic congestive heart failure with ejection fraction of 60-65% Dysphagia Possible aspiration pneumonia Diabetes mellitus type 2 Hypertension Paroxysmal atrial fibrillation on Eliquis for anticoagulation History of CVA 3 with left-sided hemiparalysis History of seizure disorder History of recurrent UTIs Full code Health Concerns: Multiple comorbidities Left-sided hemiparalysis Complexity of medical care plan Pertinent Studies: Serial chest x-rays, consistent with bilateral infiltrates and pleural effusions, improved pulmonary congestion throughout hospital stay fluoroscopy swallow study, dysphagia diet two CT of the head without contrast, stable chronic small vessel ischemic changes Procedures: No procedures performed Patient Condition at Discharge: Serious Plan - Discharge Summary Discharge Rx Participant: No New Discharge Prescriptions: New Amoxic-Pot Clav 500-125 mg [Augmentin 500-125 mg] 1 each PO BID #10 tab levETIRAcetam [Keppra] 750 mg PO Q12HR #60 tab Continue Atorvastatin [Lipitor] 80 mg PO HS Losartan Potassium 100 mg PO DAILY Citalopram Hydrobromide [CeleXA] 40 mg PO DAILY carvediloL [Coreg] 6.25 mg PO BID-W/MEALS 30 Days #60 tab hydrALAZINE HCL [Apresoline] 50 mg PO TID@0800,1200,1999 Apixaban [Eliquis] 5 mg PO BID tab amLODIPine [Norvasc] 10 mg PO DAILY metFORMIN HCL [Glucophage] 500 mg PO BID-W/MEALS ALPRAZolam [Xanax] 0.5 mg PO DAILY Furosemide [Lasix] 20 mg PO BID traZODone HCL 100 mg PO HS Discontinued levETIRAcetam [Keppra] 1,000 mg PO Q12HR Discharge Medication List Atorvastatin [Lipitor] 80 mg PO HS 03/22/19 [History] Losartan Potassium 100 mg PO DAILY 03/22/19 [History] Citalopram Hydrobromide [CeleXA] 40 mg PO DAILY 07/06/19 [History] carvediloL [Coreg] 6.25 mg PO BID-W/MEALS 30 Days #60 tab 01/20/20 [Rx] hydrALAZINE HCL [Apresoline] 50 mg PO TID@0800,1200,199903/05/20 [History] Apixaban [Eliquis] 5 mg PO BID tab 03/31/20 [Rx] amLODIPine [Norvasc] 10 mg PO DAILY 12/08/20 [History] metFORMIN HCL [Glucophage] 500 mg PO BID-W/MEALS 12/08/20 [History] ALPRAZolam [Xanax] 0.5 mg PO DAILY 04/25/21 [History] Furosemide [Lasix] 20 mg PO BID 04/25/21 [History] traZODone HCL 100 mg PO HS 04/25/21 [History] Amoxic-Pot Clav 500-125 mg [Augmentin 500-125 mg] 1 each PO BID #10 tab 05/05/21 [Rx] levETIRAcetam [Keppra] 750 mg PO Q12HR #60 tab 05/05/21 [Rx] Follow up Appointment(s)/Referral(s): Rhys Holley MD [Primary Care Provider] - 1-2 days Chuy Payan MD [STAFF PHYSICIAN] - 1 Week Patient Instructions/Handouts: Heart Failure (ER), Low-Sodium Diet (ED) Discharge Disposition: HOME SELF-CARE
== END 2021-05-05 15:38 | disposition home or self-care (01) | DRG 291 ==
LOC: EC 19:23 → 3SCARD 21:37
PROVIDERS: ADMIT Family Medicine; ATTEND Family Medicine
PROC: 5A0955A Assistance with Respiratory Ventilation, Greater than 96 Consecutive Hours, High Flow/Velocity Cannula (ICD-10-PCS; principal; 2021-04-25)
DX: I11.0 Hypertensive heart disease with heart failure (principal); J96.21 Acute and chronic respiratory failure with hypoxia; J69.0 Pneumonitis due to inhalation of food and vomit; I69.354 Hemiplegia and hemiparesis following cerebral infarction affecting left non-dominant side; I50.33 Acute on chronic diastolic (congestive) heart failure; Z79.84 Long term (current) use of oral hypoglycemic drugs; Z79.01 Long term (current) use of anticoagulants; Z87.891 Personal history of nicotine dependence; Z83.3 Family history of diabetes mellitus; E11.9 Type 2 diabetes mellitus without complications; G40.909 Epilepsy, unspecified, not intractable, without status epilepticus; Z87.440 Personal history of urinary (tract) infections; I48.0 Paroxysmal atrial fibrillation; Z86.14 Personal history of Methicillin resistant Staphylococcus aureus infection; F32.9 Major depressive disorder, single episode, unspecified; R13.10 Dysphagia, unspecified; E87.6 Hypokalemia; F01.50 Vascular dementia, unspecified severity, without behavioral disturbance, psychotic disturbance, mood disturbance, and anxiety; D64.9 Anemia, unspecified; E78.5 Hyperlipidemia, unspecified; E83.42 Hypomagnesemia; R63.3 Feeding difficulties; Z79.899 Other long term (current) drug therapy
CPT/HCPCS: 36415; 70450; 71045; 71046; 74230; 80048; 80053; 80177; 83605; 83735; 83880; 84132; 84145; 84484; 85025; 85027; 85610; 85730; 93005; 99285